=== PATIENT | female | born 1970 ===

== ENCOUNTER 2021-11-14 14:29 | Emergency (ER) | payer OTHER, SELFPAY ==
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
[2021-11-14 14:58] VITALS: BP 137/77; PULSE 68; RESP 18; TEMP 36.9; O2SAT 98; BMI 31.9
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
[2021-11-14] MEDS: Albuterol Sulfate 90 MCG 8 GM INHALER 2 PUFF INHALE (15:43)
[2021-11-14 16:27] LABS: Influenza A Negative (Negative); Influenza B2 Negative (Negative)
[2021-11-14 16:48] VITALS: BP 140/72; PULSE 72; RESP 18; O2SAT 98
== END 2021-11-14 16:57 | disposition home or self-care (01) ==
PROVIDERS: Nurse Practitioner Family; Emergency Provider Emergency Medicine; PCP Internal Medicine
DX: S29.012A Strain of muscle and tendon of back wall of thorax, initial encounter (principal); V43.62XA Car passenger injured in collision with other type car in traffic accident, initial encounter; J06.9 Acute upper respiratory infection, unspecified; Y93.89 Activity, other specified; Y92.414 Local residential or business street as the place of occurrence of the external cause; Y99.9 Unspecified external cause status
CPT/HCPCS: 71046; 87502; 99284

== ENCOUNTER 2021-12-24 10:31 | Emergency (ER) | payer OTHER, SELFPAY ==
--- NOTE | ~2021-12-24 | XR_ITS ---
EXAMINATION: XR CHEST CLINICAL INFORMATION: Shortness of breath COMPARISON: None TECHNIQUE: 2 views of the chest were obtained. FINDINGS: No significant abnormality is noted involving the heart, lungs, mediastinum, bony thorax or soft tissues. XR/XR chest 2V IMPRESSION: Unremarkable examination.
[2021-12-24 10:59] VITALS: BP 144/82; PULSE 74; RESP 19; TEMP 37.1; O2SAT 99; BMI 32.8
[2021-12-24 11:37] LABS: COVID-19 Test Negative (Negative); IDNOW Serial# 16C4AD1C
[2021-12-24 11:38] LABS: Influenza A Positive (Negative); Influenza B2 Negative (Negative)
[2021-12-24] MEDS: Albuterol/Iprat 2.5/0.5MG 3 ML AMPUL.NEB INHALE (12:18)
[2021-12-24 12:19] VITALS: PULSE 66; RESP 16; O2SAT 98
[2021-12-24] MEDS: predniSONE 20 MG TABLET 40 MG PO (12:53)
--- NOTE | 2021-12-24 12:53 | ED_ITS ---
HPI - URI/Sore Throat General Chief Complaint: Upper Respiratory Symptoms Stated Complaint: Asthma Time Seen by Provider: 12/24/21 12:06 Source: patient Mode of arrival: ambulatory History of Present Illness HPI Narrative: 51-year-old female with a past medical history of asthma presenting to the ED complaining of 3 days of cough, wheezing, SOB, nasal congestion, sneezing, headache and subjective fever. Admits to using nebulizer machine and rescue inhaler at home with symptomatic improvement. Denies ear pain, sore throat, chest pain, abdominal pain, pedal edema, recent travel, sick contacts MD elicited complaint: fever, cough, sore throat, rhinorrhea and nasal congestion Onset (ago): day(s) Related Data Previous Rx's Medication Instructions Recorded cyclobenzaprine 10 mg tablet 10 mg PO Q8H PRN #10 tab 11/14/21 ibuprofen 600 mg tablet 600 mg PO Q8H PRN #20 tab 11/14/21 prednisone 20 mg tablet 40 mg PO DAILY 5 Days #10 tab 12/24/21 Allergies Allergy/AdvReac Type Severity Reaction Status Date / Time latex [Latex] Allergy Mild UNKNOWN Unverified 05/10/20 15:21 cats, pollen, mold Allergy Unknown Uncoded 02/03/19 00:00 Latex Allergy Unknown Uncoded 02/03/19 00:00 Review of Systems Review of Systems: Constitutional: +subj Fever, No Chills ENT/Mouth: No Ear Pain, + Nasal Congestion, No Sinus Pain, No Hoarseness, No sore throat, + Rhinorrhea, No Swallowing Difficulty Cardiovascular: No Chest Pain, + SOB Respiratory: +Cough, No Sputum, + Wheezing Gastrointestinal: No Nausea, No Vomiting, No Diarrhea, No Constipation, No Abdominal pain Genitourinar: No Dysuria, No Urinary Frequency, No Hematuria, No Flank Pain Musculoskeletal: No joint pain, No Myalgias, No Joint Swelling Skin: No Skin Lesions, No rash Neuro: No Weakness Yes all other systems are reviewed and are negative [facility] Past Medical History Attestation statement: The following information was validated with the patient. Medical History Asthma Social History Social History Advance Directives: No Advance Directives Information Provided: No Patient : No Physical Exam Vital Signs: Vital Signs: Last Vital Signs Temp 98.8 F 12/24/21 10:59 Pulse 66 12/24/21 12:19 Resp 16 12/24/21 12:19 BP 144/82 H 12/24/21 10:59 Pulse Ox 99 12/24/21 10:59 BMI result Body Mass Index 32.8 Const: General: cooperative, healthy appearing and no acute distress Orientation/consciousness: patient oriented x3 Limitations: no limitations HEENT: Head: Yes normal to inspection and Yes atraumatic Ears: hearing grossly normal bilaterally General nose exam: Normal external nose present Face and sinus: Yes normal facial exam Mouth: Normal oral and palatal mucosa present Throat: Yes posterior oropharynx normal, Yes uvula midline and No peritonsillar mass Eyes: General: appearance normal, both eyes and all related structures EOM: EOMs intact bilaterally Neck: Neck: Yes normal visual inspection and Yes no meningeal signs Resp: Effort & Inspection: normal respiratory effort and no respiratory distress Auscultation: clear to auscultation bilaterally and diminished lung sounds bilateral in the lower lung abrams Cardio: Rate: regular rate Heart sounds: S1 normal heart sound present and S2 normal heart sound present Skin: Rashes: no rashes Wounds: no wounds Neuro: General: patient oriented x3, tone normal and no meningeal signs Gait exam (Neuro): Normal gait present Extrem: General: Yes normal to inspection and Yes no pedal edema Course Course Course Narrative: -influenza A positive > patient is out of the window for Tamiflu XR chest 2V IMPRESSION: Unremarkable examination -patient given DuoNeb and 1st dose of prednisone in the ED >> results discussed with patient including worrisome signs and symptoms and strict return precautions MDM - URI/Sore Throat MDM Narrative Medical decision making narrative: 51-year-old female with a past medical history of asthma presenting to the ED complaining of 3 days of cough, wheezing, SOB, nasal congestion, sneezing, he adache and subjective fever. On exam vital signs stable, NAD/nontoxic appearing, lungs clear with mildly diminished breath sounds bibasilarly. No wheezing. No pedal edema. Concern for viral illness vs asthma exacerbation vs bronchitis Rule out pneumonia. Lower concern for ACS/PE Plan: COVID-19/influenza testing, CXR, DuoNeb, p.o. prednisone Differential Diagnosis Differential diagnosis: Likely upper respiratory infection, viral infection, bronchitis and influenza Medical Records Attestation: I reviewed the patient's medical records. Lab Data Attestation: I reviewed the patient's lab results. Labs: Lab Results 12/24/21 12/24/21 Range/Units 11:05 11:05 COVID-19 (NEIL) Negative (Negative) COVID-19 Clin Com See Note Influenza Type A (MELISSA) Positive A (Negative) Influenza Type B (MELISSA) Negative (Negative) Influenza A & B Note See Note Discharge Plan Discharge Clinical Impression: Influenza, Asthma Patient Disposition: Home, Self-Care Instructions: Asthma (DC), Influenza (DC) Additional Instructions: You have the flu. You are contagious. Wash her hands, wear your mask, stay away from people for the next 5 days Rest. Stay hydrated. Prednisone steroid which will help with her wheezing. Continue to use home inhalers and nebulizer machine If symptoms persist or worsen, he develops fever unresolved medications, constant worsening cough, chest pain or shortness of breath please return to the ED Prescriptions: New prednisone 20 mg tablet 40 mg PO DAILY 5 Days Qty: 10 0RF No Action ibuprofen 600 mg tablet 600 mg PO Q8H PRN (Reason: pain) Qty: 20 0RF cyclobenzaprine 10 mg tablet 10 mg PO Q8H PRN (Reason: muscle spasm) Qty: 10 0RF Referrals: Gt Prescott III, MD [Primary Care Provider] - 1 week
== END 2021-12-24 13:12 | disposition home or self-care (01) ==
PROVIDERS: Emergency Provider Emergency Medicine; PCP Internal Medicine
DX: J10.1 Influenza due to other identified influenza virus with other respiratory manifestations (principal); R05.9 Cough, unspecified; R51.9 Headache, unspecified; Z20.822 Contact with and (suspected) exposure to COVID-19; Z79.899 Other long term (current) drug therapy
CPT/HCPCS: 71046; 87502; 87635; 94640; 99283; 99284

== ENCOUNTER 2021-12-26 09:42 | Observation (INO) | payer OTHER, SELFPAY ==
[2021-12-26] VITALS (8 sets, daily range): BP systolic 113–152; BP diastolic 57–81; PULSE 72–90; RESP 12–18; TEMP 36.1–37; O2SAT 95–98; BMI 32.8
--- NOTE | ~2021-12-26 | XR_ITS ---
EXAMINATION: XR CHEST CLINICAL INFORMATION: Dyspnea COMPARISON: 12/24/2021 TECHNIQUE: Frontal view of the chest was obtained. FINDINGS: Cardiac leads overlie the chest. The lungs are well expanded. There is no focal consolidation, edema, or effusion. No pneumothorax. The cardiomediastinal silhouette is within normal limits. No acute osseous abnormality. Degenerative changes in both glenohumeral joints. XR/XR chest 1V IMPRESSION: Clear lungs.
--- NOTE | 2021-12-26 09:51 | ED_ITS ---
HPI - Asthma General Chief Complaint: Asthma Stated Complaint: asthma Time Seen by Provider: 12/26/21 09:51 Source: patient Mode of arrival: ambulatory Limitations: no limitations History of Present Illness HPI Narrative: symptoms since Thursday of URI symptoms asthma has worsened seen 5/3 dx with Flu A has been taking her neb treatments at home with no relief and also on prednisone 40mg daily. Feels her breathing has worsened at home. No smoking. No prior intubations MD complaint: asthma attack , shortness of breath and wheezing Onset (ago): day(s) Severity: moderate Context: recent URI Associated symptoms: productive cough Asthma History: childhood onset Treatments Prior to Arrival: inhaled bronchodilator and other (PO prednisone) Related Data Previous Rx's Medication Instructions Recorded cyclobenzaprine 10 mg tablet 10 mg PO Q8H PRN #10 tab 11/14/21 ibuprofen 600 mg tablet 600 mg PO Q8H PRN #20 tab 11/14/21 prednisone 20 mg tablet 40 mg PO DAILY 5 Days #10 tab 12/24/21 Allergies Allergy/AdvReac Type Severity Reaction Status Date / Time latex [Latex] Allergy Mild UNKNOWN Verified 12/26/21 09:51 cats, pollen, mold Allergy Unknown Unknown Uncoded 12/26/21 09:51 Latex Allergy Unknown Unknown Uncoded 12/26/21 09:51 Review of Systems Review of Systems: Constitutional : No Fever, No Chills ENT/Mouth : No Hoarseness, No sore throat, No Rhinorrhea Eyes: No Redness, No Discharge, No Vision Changes Cardiovascular : No Chest Pain, positive SOB, positive Dyspnea on Exertion, No Edema Respiratory : positive Cough, pos Sputum, positive Wheezing, Gastrointestinal : No Nausea, No Vomiting, No Diarrhea, No abdominal Pain Genitourinary : No Dysuria, No Hematuria Musculoskeletal : No joint pain, No Myalgias Skin : No rash Neuro : No Weakness, No Numbness, No Headache Psych : No anxiety, depression Heme/Lymph: No Bruising, No Bleeding Endocrine : No Polyuria, No Polydipsia All other systems reviewed and are negative PMFSH Past Medical History Attestation statement: The following information was validated with the patient. Medical History Asthma Social History Social History Advance Directives: Yes Advance Directives Information Provided: Yes Advance Directives on File: No Physical Exam Vital Signs: Vital Signs: Last Vital Signs Temp 98.6 F 12/26/21 09:52 Pulse 85 12/26/21 10:49 Resp 18 12/26/21 10:49 BP 130/70 12/26/21 10:49 Pulse Ox 95 12/26/21 10:49 BMI result Body Mass Index 32.8 Appearance: Alert. Oriented X3. No acute distress. Eyes: Pupils equal, round and reactive to light. ENT: Pharynx normal. Neck: Normal inspection. Neck supple. CVS: Normal heart rate and rhythm. Pulses normal. Respiratory: No respiratory distress. Breath sounds decreased with diffuse end exp wheezes Abdomen: Soft and non-tender. Skin: Skin warm and dry. Normal skin color. Normal skin turgor. Extremities: No lower extremity edema. No calf ttp Neuro: Oriented X 3. No motor deficit. No sensory deficit. Course Course Course Narrative: repeat 5mg neb ordered, no hypoxia but still tight and wheezy already on nebs and steroids at home - at this time anticipate admission MDM - Asthma MDM Narrative Medical decision making narrative: 51 yo female with hx of asthma has neb treatments at home, currently on oral prednisone from 12/24 dx with flu but symptoms started last Thursday so out of window for tamiflu. At this time will need 5mg neb, IV steroids, IV magnesium, labs, CXR - dispo per results and findings. Lab Data Result diagrams: 12/26/21 10:14 12/26/21 10:14 Labs: Lab Results 12/26/21 12/26/21 12/26/21 Range/Units 10:13 10:14 10:14 WBC 7.8 (4.8-10.8) X10*3/uL RBC 4.70 (4.20-5.50) X10*6/uL Hgb 12.5 (12.0-16.0) g/dl Hct 39.9 (37.0-47.0) % MCV 84.9 (80.0-98.0) fL MCH 26.6 L (27.0-33.0) pg MCHC 31.3 (31.0-35.0) g/dl RDW 13.7 (11.0-16.0) % Plt Count 247 (160-400) X10*3/uL MPV 10.8 (9.4-12.3) fL Immature Gran % (Auto) 0.4 (0.0-0.4) % Neut % (Auto) 88.4 H (45-73) % Lymph % (Auto) 5.5 L (20-40) % [place] % (Auto) 5.6 (2-11) % Eos % (Auto) 0.0 (0-4) % Baso % (Auto) 0.1 (0-2) % Lymph # (Auto) 0.4 L (1.2-4.9) X10*3/uL [place] # (Auto) 0.4 (0.1-1.2) X10*3/uL Eos # (Auto) 0.0 (0.0-0.4) X10*3/uL Baso # (Auto) 0.0 (0.0-0.2) X10*3/uL Abs Immat Gran (auto) 0.03 (0.00-0.03) X10*3/uL Absolute Neuts (auto) 6.9 (2.0-8.3) x10*3/uL Absolute Nucleated RBC 0.000 (0.0-0.012) X10*3/uL Nucleated RBC % (auto) 0.0 (0.0-0.2) /100WBC Sodium 138 (135-145) mmol/L Potassium 4.5 (3.3-5.1) mmol/L Chloride 106 (96-108) mmol/L Carbon Dioxide 25 (22-29) mmol/L Anion Gap 12 (12-20) BUN 15 (9-16) mg/dL Creatinine 0.75 (0.5-1.4) mg/dL Estim Creat Clear Calc 82.5 Estimated GFR > 60 Random Glucose 112 (60-115) mg/dL Calcium 9.3 (8.4-10.2) mg/dL Magnesium 1.7 (1.6-2.6) mg/dL Total Bilirubin 0.2 (0.0-1.0) mg/dL Direct Bilirubin < 0.2 (0.0-0.5) mg/dL AST 18 (5-31) U/L ALT 14 (0-31) U/L Alkaline Phosphatase 108 (39-117) U/L Total Protein 6.8 (6.5-8.0) g/dL Albumin 3.6 (3.5-5.0) g/dL COVID-19 (NEIL) Negative (Negative) COVID-19 Clin Com See Note ECG Data Attestation: I personally reviewed and interpreted this ECG as follows: ECG interpretation date: 12/26/21 ECG interpretation time: 10:08 Interpretation: Rate: 71 Rhythm: NSR [place]: normal Normal P waves. Normal DINORAH. Normal QRS complex. ST T wave : normal no LISETTE qTC: normal prior studies: no acute ischemia The study has been interpreted contemporaneously by me. Critical Care Time Critical Care Time Critical Care Time: Yes Total Critical Care Time: 35 Attestation: repeat hour long neb treatments Discharge Plan Discharge Clinical Impression: Asthma with acute exacerbation, Influenza A Patient Disposition: Admitted As Inpatient Prescriptions: No Action ibuprofen 600 mg tablet 600 mg PO Q8H PRN (Reason: pain) Qty: 20 0RF cyclobenzaprine 10 mg tablet 10 mg PO Q8H PRN (Reason: muscle spasm) Qty: 10 0RF prednisone 20 mg tablet 40 mg PO DAILY 5 Days Qty: 10 0RF
--- NOTE | 2021-12-26 10:01 | ECG_ITS ---
Test Reason : ASTHMA Blood Pressure : / mmHG Vent. Rate : 071 BPM Atrial Rate : 071 BPM P-R Int : 162 ms QRS Dur : 082 ms QT Int : 398 ms P-R-T Axes : 055 025 028 degrees QTc Int : 432 ms Normal sinus rhythm Septal infarct , age undetermined Abnormal ECG When compared with ECG of 30-NOV-2018 01:58, Nonspecific T wave abnormality, improved in Inferior leads Referred By: Teodora Red Electronically Signed By:ALTHEA QUIROZ MD
[2021-12-26] MEDS: Albuterol Sulfate (0.083%) 2.5 MG/3 ML VIAL.NEB 5 MG INHALE ×2 (10:16→11:52)
[2021-12-26] MEDS: methylPREDNISolone Sod Succ 125 MG/2 ML VIAL IVPUSH (10:19)
[2021-12-26] MEDS: Magnesium Sulfate/H2O 2 GM/50 ML PIGGYBACK IV (10:19)
[2021-12-26 10:20] LABS: MANUAL DIFF FLAG NO
[2021-12-26 10:24] LABS: Basophils Percent Auto 0.1 % (0-2); Hematocrit 39.9 % (37.0-47.0); Hemoglobin 12.5 g/dl (12.0-16.0); Imm Gran Abs Auto 0.03 X10*3/uL (0.00-0.03); Imm Gran Pct Auto 0.4 % (0.0-0.4); Lymphocytes Absolute Auto 0.4 X10*3/uL (1.2-4.9); Lymphocytes Percent Auto 5.5 % (20-40); Mean Corpuscular HGB Conc 31.3 g/dl (31.0-35.0); Mean Corpuscular Hemoglobin 26.6 pg (27.0-33.0); Mean Corpuscular Volume 84.9 fL (80.0-98.0); Mean Platelet Volume 10.8 fL (9.4-12.3); Monocytes Absolute Auto 0.4 X10*3/uL (0.1-1.2); Monocytes Percent Auto 5.6 % (2-11); Neutrophils Absolute Auto 6.9 x10*3/uL (2.0-8.3); Neutrophils Percent Auto 88.4 % (45-73); Platelet Count 247 X10*3/uL (160-400); Red Cell Distribution Width 13.7 % (11.0-16.0); White Blood Count 7.8 X10*3/uL (4.8-10.8)
[2021-12-26 10:39] LABS: COVID-19 Test Negative (Negative)
[2021-12-26 10:54] LABS: Alanine Aminotransferase 14 U/L (0-31); Albumin Level 3.6 g/dL (3.5-5.0); Alkaline Phosphatase 108 U/L (39-117); Anion Gap 12 (12-20); Aspartate Amino Transferase 18 U/L (5-31); Bilirubin Direct < 0.2 mg/dL (0.0-0.5); Bilirubin Total 0.2 mg/dL (0.0-1.0); Blood Urea Nitrogen 15 mg/dL (9-16); Calcium 9.3 mg/dL (8.4-10.2); Carbon Dioxide 25 mmol/L (22-29); Chloride 106 mmol/L (96-108); Creatinine Clr Calc Pharmacy 82.5; Estimated Glomerular Filt Rate > 60; Glucose Random 112 mg/dL (60-115); Magnesium 1.7 mg/dL (1.6-2.6); Potassium 4.5 mmol/L (3.3-5.1); Sodium 138 mmol/L (135-145); Total Protein 6.8 g/dL (6.5-8.0)
--- NOTE | 2021-12-26 12:33 | P.HPHOSP_ITS ---
History of Present Illness Date of Service: 12/26/21 Attending physician on admission: Derek George Chief Complaint: sob 51-year-old female patient with past medical history of asthma presented to [facility] for 5-7 days history of chest tightness, productive cough of yellow phlegm, nasal congestion sneezing and shortness of breath, patient was evaluated at [facility] on December 24 with above symptoms and was diagnosed to have influenza A patient was discharged home on prednisone, and was recommended to continue home inhalers, but in last 2 days patient noted to have worsening shortness of breath and chest tightness despite using prednisone and updraft treatments, therefore got concerned and worried about intubation and came to the emergency room She denies sick contacts, no recent history of travel, in the emergency room chest x-ray showed no acute infiltrate patient noted of significant bilateral wheeze and diminished breath sound was treated with magnesium, IV Solu-Medrol and hour long updraft treatment but since patient continued to have persistent chest tightness and bilateral wheeze therefore she is being admitted to [facility] for continued monitoring and treatment. Review of Systems Review of Systems: General no headache, no dizziness no fever chills. CVS chest tightness,no palpitation. Respiratory shortness of breath and productive cough Gastrointestinal no nausea no vomiting, no abdominal pain no dysuria Skin no rash Yes all other systems are reviewed and are negative [facility] Medical History Asthma Pertinent family history: Father is had diabetes and asthma, mother is alive and has mild asthma, no history of premature coronary artery disease Social History (Updated 12/26/21 @ 12:40 by Derek George MD) Patient Tobacco Use Status: Never used Tobacco Advance Directives: Yes Advance Directives Information Provided: Yes Advance Directives on File: No Meds Allergies Allergy/AdvReac Type Severity Reaction Status Date / Time latex [Latex] Allergy Mild UNKNOWN Verified 12/26/21 09:51 cats, pollen, mold Allergy Unknown Unknown Uncoded 12/26/21 09:51 Latex Allergy Unknown Unknown Uncoded 12/26/21 09:51 Active Medications: Current Medications Acetaminophen (Acetaminophen 325 Mg Tablet) 650 mg PO Q6H PRN PRN Reason: Pain, Mild (Pain Scale 1-3) Magnesium Hydroxide (Milk Of Magnesia 30 Ml Oral.Susp) 30 ml PO DAILY PRN PRN Reason: Constipation Ondansetron HCl (Ondansetron Hcl 4 Mg/2 Ml Vial) 4 mg IVPUSH Q8H PRN PRN Reason: Nausea and Vomiting Pharmacy Consult (Consult Rx Perform Med Rec) 1 each MISCELLANE ONCE PRN PRN Reason: Consult order Sodium Chloride (0.9 % Sodium Chloride Flush 3 Ml Syringe) 3 ml IVFLUSH [facility] Medications Medication Instructions Recorded Confirmed Last Taken Type azelastine 137 mcg (0.1 %) nasal 2 spray INTRANASAL BID 12/26/21 12/26/21 12/26/21 History spray aerosol bupropion HCl 150 mg 24 hr tablet, 1 tab PO DAILY 12/26/21 12/26/21 12/26/21 History extended release calcium citrate 200 mg (950 mg) 1 tab PO DAILY 12/26/21 12/26/21 12/26/21 History tablet cholecalciferol (vitamin D3) 25 1 tab PO DAILY 12/26/21 12/26/21 12/26/21 History mcg (1,000 unit) tablet fluticasone propionate 230 1 puff INHALATION BID 12/26/21 12/26/21 12/26/21 History mcg-salmeterol 21 mcg/actuation HFA inhaler (Advair HFA) hydroxyzine HCl 25 mg tablet 1 tab PO Q8H PRN 12/26/21 12/26/21 Unknown History ibuprofen 600 mg tablet 1 tab PO Q8H PRN 12/26/21 12/26/21 Unknown History ipratropium bromide 0.02 % 2.5 ml INHALATION QID PRN 12/26/21 12/26/21 Unknown History solution for inhalation ketotifen fumarate 0.025 % (0.035 1 drp OPHTHALMIC (EYE) BID PRN 12/26/21 12/26/21 Unknown History %) eye drops loratadine 10 mg tablet 1 tab PO DAILY 12/26/21 12/26/21 12/26/21 History mepolizumab 100 mg/mL subcutaneous 100 mg SUBCUT Q4W 12/26/21 12/26/21 12/04/21 History auto-injector (Nucala) montelukast 10 mg tablet 1 tab PO BEDTIME 12/26/21 12/26/21 12/25/21 History omeprazole 40 mg capsule,delayed 1 cap PO DAILY@0630 12/26/21 12/26/21 12/26/21 History release tiotropium bromide 1.25 2 puff PO DAILY 12/26/21 12/26/21 12/26/21 History mcg/actuation mist for inhalation (Spiriva Respimat) Physical Exam Vital Signs and Narrative: Vital Signs: Last Vital Signs Temp 98.6 F 12/26/21 09:52 Pulse 78 12/26/21 11:54 Resp 16 12/26/21 11:54 BP 130/70 12/26/21 10:49 Pulse Ox 95 12/26/21 10:49 BMI result Body Mass Index 32.8 Const: Other: General awake alert,no acute distress. HEENT pupils equal round reactive to light and accommodation Neck supple no JVD. CVS regular rate rhythm, Respiratory lungs bilateral expiratory wheeze with diminished breath sounds, no use of accessory muscle. Gastrointestinal abdomen soft, nontender, bowel sounds audible Extremities no edema, right ankle brace Neuro nonfocal . Skin no rash Psych appropriate affect Results Labs CBC and Chem 7: 12/26/21 10:14 12/26/21 10:14 Labs: Laboratory Results - last 24 hr 12/26/21 12/26/21 12/26/21 10:13 10:14 10:14 MCV 84.9 MCH 26.6 L MCHC 31.3 RDW 13.7 Plt Count 247 MPV 10.8 Immature Gran % (Auto) 0.4 Neut % (Auto) 88.4 H Lymph % (Auto) 5.5 L Mccreary % (Auto) 5.6 Eos % (Auto) 0.0 Baso % (Auto) 0.1 Lymph # (Auto) 0.4 L Mccreary # (Auto) 0.4 Eos # (Auto) 0.0 Baso # (Auto) 0.0 Abs Immat Gran (auto) 0.03 Absolute Neuts (auto) 6.9 Absolute Nucleated RBC 0.000 Nucleated RBC % (auto) 0.0 Anion Gap 12 Estim Creat Clear Calc 82.5 Estimated GFR > 60 Random Glucose 112 Calcium 9.3 Magnesium 1.7 Total Bilirubin 0.2 Direct Bilirubin < 0.2 AST 18 ALT 14 Alkaline Phosphatase 108 Total Protein 6.8 Albumin 3.6 COVID-19 (NEIL) Negative COVID-19 Clin Com See Note Imaging Radiologist's Impressions: Impressions Chest X-Ray 12/26/21 10:34 IMPRESSION: Clear lungs. Assessment and Plan (1) Asthma with acute exacerbation: Qualifiers: Asthma persistence: persistent Asthma severity: moderate Qualified Code(s): J45.41 - Moderate persistent asthma with (acute) exacerbation Status: Acute (2) Influenza A: Status: Acute Plan 51-year-old female patient with past medical history significant for asthma presented to [facility] for 5-7 days history of chest tightness, productive cough, shortness of breath sneezing and subjective fevers, patient evaluated at [facility], on 12/24 and diagnosed to have influenza A infection with asthma exacerbation patient was sent home on prednisone, however return back to ER due to worsening shortness of breath and chest tightness. Acute asthma exacerbation due to influenza A infection Since patient failed outpatient steroids and updraft treatment will admit to medical floor, will place patient on high-dose IV steroids DuoNeb scheduled and as needed, continue supportive care with cough medications and oxygen as needed, patient does not qualify for Tamiflu due to duration of illness, continue droplet precautions Follow clinical course closely DVT prophylaxis low risk recommend early ambulation Code status full code Quality Stroke Does the patient have a stroke diagnosis?: No VTE Prior VTE?: No VTE Risk Level:: Medical - low VTE Device Contraindication: Treatment Not Indicated VTE Drug Contraindication: Treatment Not Indicated
--- NOTE | 2021-12-26 12:42 | PHA.MEDREC ---
Pharmacy Consult ? Medication Reconciliation Pharmacy has completed the medication reconciliation. Spoke with patient in the ED. Took all medications this morning.
[2021-12-26] MEDS: guaiFENesin DM 200/20/10 ML 10 ML SYRUP PO ×2 (13:14→22:14)
[2021-12-26] MEDS: Albuterol/Iprat 2.5/0.5MG 3 ML AMPUL.NEB INHALE ×2 (15:43→19:34)
[2021-12-26] MEDS: 0.9 % Sodium Chloride Flush 3 ML SYRINGE IVFLUSH (16:27)
[2021-12-26] MEDS: Acetaminophen 325 MG TABLET 650 MG PO (18:05)
[2021-12-26] MEDS: methylPREDNISolone Sod Succ 125 MG/2 ML VIAL 60 MG IVPUSH (18:50)
[2021-12-26] MEDS: ondansetron HCL 4 MG/2 ML VIAL IVPUSH (19:21)
[2021-12-26] MEDS: Milk of Magnesia 30 ML ORAL.SUSP PO (19:23)
[2021-12-27] MEDS: 0.9 % Sodium Chloride Flush 3 ML SYRINGE IVFLUSH ×2 (00:27→09:06)
[2021-12-27] MEDS: Acetaminophen 325 MG TABLET 650 MG PO ×2 (00:34→09:13)
[2021-12-27] MEDS: guaiFENesin DM 200/20/10 ML 10 ML SYRUP PO ×3 (02:38→12:39)
[2021-12-27] MEDS: methylPREDNISolone Sod Succ 125 MG/2 ML VIAL 60 MG IVPUSH ×2 (02:38→09:05)
[2021-12-27 03:38] VITALS: BP 155/80; PULSE 65; RESP 18; TEMP 36.4; O2SAT 97
[2021-12-27 04:57] VITALS: PULSE 61; RESP 16; O2SAT 98
[2021-12-27] MEDS: Albuterol/Iprat 2.5/0.5MG 3 ML AMPUL.NEB INHALE ×3 (04:57→11:23)
[2021-12-27 07:52] VITALS: PULSE 65; RESP 18; O2SAT 99
[2021-12-27 08:00] VITALS: BP 141/83; PULSE 79; RESP 20; TEMP 36.4; O2SAT 97
--- NOTE | 2021-12-27 09:11 | MHC.CM.PN ---
ANTHONY 12/27/21, EMR REVIEWED, PT ADMITTED TO OBS W/ASTHMA EXAC, CM MET W/PT WHO IS A&OX4, PT REPORTS SHE LIVES W/, ADULT DTR/SONIL AND SON, PT REPORTS SHE USES A CANE, HAS A NEBULIZER AND GRAB BARS IN [place] FOR DME AND HAS 1HR/7DAYS TO ASSIST W/ADLS AND CLEANING. PT REQUESTING TO STAY UNTIL TOMORROW AND CM WILL LET HOSPITALIST KNOW DURING MORNING ROUNDS, PT VERIFIES PCP IS ARLENE RM, VERIFIES HCP IS ELOISA MANE [phone] AND ALT IS DTR EMERSON PURVIS [phone], MODERNA X3. 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
[2021-12-27] MEDS: ondansetron HCL 4 MG/2 ML VIAL IVPUSH (09:24)
--- NOTE | 2021-12-27 11:16 | P.PNIM_ITS ---
Subjective Subjective Date of Service: 12/27/21 Interval History: Complaining of shortness of breath with minimal activity, denies fevers chills, persistent mild productive cough, denies chest pain, no palpitations no other acute issues overnight, no hypoxia. 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 HEENT pupils equal round reactive to light and accommodation Neck supple no JVD. CVS? regular rate rhythm, Respiratory lungs few expiratory wheeze , better air movement, no use of accessory muscle. Gastrointestinal abdomen soft, nontender, bowel sounds audible Extremities no edema, right ankle brace Neuro nonfocal . Skin no rash Psych appropriate affect Objective Data Active Medications Acetaminophen (Acetaminophen 325 Mg Tablet) 650 mg PO Q6H PRN PRN Reason: Pain, Mild (Pain Scale 1-3) Last Admin: 12/27/21 09:13 Dose: 650 mg Documented by: RADHA Albuterol/Ipratropium (Albuterol/Iprat 2.5/0.5mg 3 Ml Ampul.Neb) 3 ml INHALE Q2H PRN PRN Reason: sob Albuterol/Ipratropium (Albuterol/Iprat 2.5/0.5mg 3 Ml Ampul.Neb) 3 ml INHALE RQ4H WHILE AWAKE [facility] Last Admin: 12/27/21 07:52 Dose: 3 ml Documented by: MARY ANN Guaifenesin/Dextromethorphan (Guaifenesin Dm 200/20/10 Ml 10 Ml Syrup) 10 ml PO Q6H [facility] Last Admin: 12/27/21 07:23 Dose: 10 ml Documented by: RADHA Magnesium Hydroxide (Milk Of Magnesia 30 Ml Oral.Susp) 30 ml PO DAILY PRN PRN Reason: Constipation Last Admin: 12/26/21 19:23 Dose: 30 ml Documented by: CHIQUIS Methylprednisolone Sodium Succinate (Methylprednisolone Sod Succ 125 Mg/2 Ml Vial) 60 mg IVPUSH Q8H [facility] Last Admin: 12/27/21 09:05 Dose: 60 mg Documented by: RADHA Ondansetron HCl (Ondansetron Hcl 4 Mg/2 Ml Vial) 4 mg IVPUSH Q8H PRN PRN Reason: Nausea and Vomiting Last Admin: 12/27/21 09:24 Dose: 4 mg Documented by: RADHA Pharmacy Consult (Consult Rx Perform Med Rec) 1 each MISCELLANE ONCE PRN PRN Reason: Consult order Sodium Chloride (0.9 % Sodium Chloride Flush 3 Ml Syringe) 3 ml IVFLUSH QSHIFT [facility] Last Admin: 12/27/21 09:06 Dose: 3 ml Documented by: RADHA Labs CBC & Chem 7: 12/26/21 10:14 12/26/21 10:14 Assessment and Plan (1) Asthma with acute exacerbation: Status: Acute (2) Influenza A: Status: Acute Plan 51-year-old female patient with past medical history significant for asthma presented to [facility] for 5-7 days history of chest tightness, productive cough, shortness of breath sneezing and subjective fevers, patient evaluated at [facility], on 12/24 and diagnosed to have influenza A infection with asthma exacerbation patient was sent home on prednisone, however return back to ER due to worsening shortness of breath and chest tightness. Acute asthma exacerbation due to influenza A infection Admitted to hospital since failed outpatient steroids and updraft treatment Persistent shortness of breath with activity, continue IV steroids wean dosage to 40 mg q.8 hours continue DuoNeb scheduled and as needed continue supportive care with cough medications and oxygen as needed did not qualify for Tamiflu due to duration of illness, continue droplet precau tions Continue home inhalers on subcu nucala (mepolizumab at home) Follow clinical course closely DVT prophylaxis low risk recommend early ambulation Code status full code Quality Stroke Does the patient have a stroke diagnosis?: No VTE Prior VTE?: No VTE Risk Level:: Medical - low VTE Device Contraindication: Treatment Not Indicated VTE Drug Contraindication: Treatment Not Indicated
[2021-12-27 11:24] VITALS: PULSE 72; RESP 18; O2SAT 96
[2021-12-27 12:00] VITALS: BP 121/69; PULSE 79; RESP 20; TEMP 36.3; O2SAT 96
--- NOTE | 2021-12-27 14:12 | P.DS_ITS ---
DS: Providers Provider Date of Service: 12/27/21 Date of admission: 12/26/21 12:24 Primary care physician: Gt Prescott III, MD DS: Diagnosis Discharge Diagnosis (1) Asthma with acute exacerbation: Status: Acute (2) Influenza A: Status: Acute DS: Summary Hospital Course Hospital Course: Chief Complaint: sob 51-year-old female patient with past medical history of asthma presented to [facility] for 5-7 days history of chest tightness, productive cough of yellow phlegm, nasal congestion sneezing and shortness of breath, patient was evaluated at [facility] on December 24 with above symptoms and was diagnosed to have influenza A patient was discharged home on prednisone, and was recommended to continue home inhalers, but in last 2 days patient noted to have worsening shortness of breath and chest tightness despite using prednisone and updraft treatments, therefore got concerned and worried about intubation and came to the emergency room She denies sick contacts, no recent history of travel, in the emergency room chest x-ray showed no acute infiltrate patient noted of significant bilateral wheeze and diminished breath sound was treated with magnesium, IV Solu-Medrol and hour long updraft treatment but since patient continued to have persistent chest tightness and bilateral wheeze therefore she is being admitted to [facility] for continued monitoring and treatment. Hospital course 51-year-old female patient with past medical history significant for asthma presented to [facility] for 5-7 days history of chest tightness, productive cough, shortness of breath sneezing and subjective fevers, patient evaluated at [facility], on 12/24 and diagnosed to have influenza A infection with asthma exacerbation patient was sent home on prednisone, however return back to ER due to worsening shortness of breath and chest tightness, patient admitted to [facility] with a diagnosis of Acute asthma exacerbation due to influenza A infection and treated with IV steroids , DuoNeb scheduled and as needed she did not qualify for Tamiflu due to duration of illness, patient responded well to above treatment currently feeling significantly better lung examination is clear patient feels she is good to be discharged home and will continue her home inhalers she is being discharged home on prednisone 20 mg twice daily for 5 more days recommend to take cough medication as needed rest and drink plenty of fluids. Time Spent with Patient Time attestation: Total time spent providing and/or coordinating discharge services: Discharge coordination time: Greater than 30 minutes Quality: Safe Use of Opioids Does Pt have an Active Cancer Diagnosis on the Problem List?: No Quality: Stroke Does the patient have a stroke diagnosis?: No Physical Exam Vital Signs: Vital Signs: Last Vital Signs Temp 97.4 F 12/27/21 12:00 Pulse 79 12/27/21 12:00 Resp 20 12/27/21 12:00 BP 121/69 12/27/21 12:00 Pulse Ox 96 12/27/21 12:00 BMI result Body Mass Index 32.8 Const: Other: General awake alert,no acute distress.? HEENT pupils equal round reactive to light and accommodation Neck supple no JVD. CVS? regular rate rhythm, Respiratory lungs clear no wheeze, no use of accessory muscle. Gastrointestinal abdomen soft, nontender, bowel sounds audible Extremities no edema, right ankle brace Neuro nonfocal . Skin no rash Psych appropriate affect Discharge Plan Discharge Patient Disposition: Home, Self-Care Discharge Diagnosis: Acute asthma exacerbation Influenza A Referrals: Gt Prescott III, MD [Primary Care Provider] - 1 Week Discharge Medications: New dextromethorphan-guaifenesin 10-100 mg/5 mL Syrup 10 ml PO Q6H Qty: 237 0RF prednisone 20 mg tablet 20 mg PO BID Qty: 10 0RF Rx Instructions: Take with food Continued ketotifen fumarate 0.025 % (0.035 %) drops 1 drp ophthalmic (eye) BID PRN (Reason: itch) 0RF omeprazole 40 mg capsule,delayed release(DR/EC) 1 cap PO DAILY@0630 0RF montelukast 10 mg tablet 1 tab PO BEDTIME 0RF hydroxyzine HCl 25 mg tablet 1 tab PO Q8H PRN (Reason: itch) 0RF azelastine 137 mcg (0.1 %) aerosol,spray 2 spray intranasal BID 0RF ibuprofen 600 mg tablet 1 tab PO Q8H PRN (Reason: pain) 0RF loratadine 10 mg tablet 1 tab PO DAILY 0RF ipratropium bromide 0.02 % solution 2.5 ml inhalation QID PRN (Reason: wheezing) 0RF calcium citrate 200 mg (950 mg) tablet 1 tab PO DAILY 0RF bupropion HCl 150 mg tablet extended release 24 hr 1 tab PO DAILY 0RF Advair HFA 230-21 mcg/actuation HFA aerosol inhaler 1 puff inhalation BID 0RF cholecalciferol (vitamin D3) 25 mcg (1,000 unit) tablet 1 tab PO DAILY 0RF Spiriva Respimat 1.25 mcg/actuation mist 2 puff PO DAILY 0RF Nucala 100 mg/mL auto-injector 100 mg subcut Q4W 0RF Discharge Orders: Discharge Order (Routine); Ordered 12/27/21 Ordered By: Derek George Diet: advance to usual diet Activity on Discharge: As tolerated Stand Alone Forms: Patient Portal Discharge page Care Plan Goals: Acute asthma exacerbation due to influenza A take updraft treatment 4 times a day, and take prednisone 20 mg twice daily for total 5 more days, take cough medication as needed Health Concerns: Continue all home medication Plan of Treatment: Outpatient follow-up with primary care physician Assessment: As per discharge summary
== END 2021-12-27 15:13 | disposition home or self-care (01) ==
LOC: HO.ED 12:28 → HO.EDOVER 12:33 → HO.S3 17:18
PROVIDERS: Admitting Provider Hospitalist; Emergency Provider Emergency Medicine; PCP Internal Medicine; Visit Provider Hospitalist
DX: J45.41 Moderate persistent asthma with (acute) exacerbation (principal); J10.1 Influenza due to other identified influenza virus with other respiratory manifestations; J30.81 Allergic rhinitis due to animal (cat) (dog) hair and dander; I51.0 Cardiac septal defect, acquired; R94.31 Abnormal electrocardiogram [ECG] [EKG]; Z20.822 Contact with and (suspected) exposure to COVID-19; Z91.040 Latex allergy status; Z79.899 Other long term (current) drug therapy
CPT/HCPCS: 71045; 80048; 80076; 83735; 85025; 87635; 93005; 94640; 94644; 96365; 96366; 96375; 96376; 99218; 99285; 99291; J2405; J2930; J3475

== ENCOUNTER 2022-01-01 18:38 | Inpatient (IN) | payer OTHER, SELFPAY ==
--- NOTE | ~2022-01-01 | XR_ITS ---
EXAMINATION: XR CHEST CLINICAL INFORMATION: Follow-up pneumonia COMPARISON: Previous chest x-ray and chest CTA 01/01/2022 TECHNIQUE: 2 views of the chest were obtained. FINDINGS: The cardiac and mediastinal contours are stable. There are right upper and perihilar infiltrates. These do not appear appreciably changed. There is a 1.6 cm right upper lobe nodule that now appears cavitary. This does not appear appreciably changed in size. The left lung is clear. There is no pleural effusion or pneumothorax. There are degenerative changes of the spine. XR/XR chest 2V IMPRESSION: No appreciable change in the right perihilar infiltrates. 1.6 cm cavitary right upper lobe nodule.
--- NOTE | ~2022-01-01 | XR_ITS ---
EXAMINATION: XR CHEST CLINICAL INFORMATION: Right sided pleuritic chest pain, rule out pneumothorax or pneumonia COMPARISON: 12/26/2021 TECHNIQUE: Frontal view of the chest was obtained. FINDINGS: There is no evidence for pneumothorax. I believe there is developing density in the right upper lung and also parahilar region on the right. These findings favor areas of infiltrate. Cannot exclude a developing process left midlung though this could be overlapping rib and scapula There is no obvious failure here. No effusion. The cardiac silhouette is comparable to previous. XR/XR chest 1V IMPRESSION: Opacity in the right upper lung and parahilar region on the right. These findings suggest developing areas of infiltrate. There is no pneumothorax or effusion. Possible additional focus left midlung. Short-term Follow-up films are recommended after treatment to assess for resolution and establish baseline 4 - 6 weeks
--- NOTE | ~2022-01-01 | CT_ITS ---
EXAMINATION: CT ANGIOGRAM OF THE CHEST WITH AND WITHOUT CONTRAST (CT PULMONARY ANGIOGRAM FOR PE) CLINICAL INFORMATION: Reason for Exam R sided pleuritic pain, elevated D-dimer, r/o PE COMPARISON: 09/30/2018 TECHNIQUE: Prior to contrast administration, noncontrast localization images were obtained. Subsequently, multidetector volumetric imaging was performed from the thoracic inlet to below the diaphragms following the administration of 80 mL Omnipaque 350 intravenous contrast. No contrast reaction reported Sagittal, coronal, and MIP oblique sagittal reformatted images were obtained on the CT workstation, uploaded to PACS, and reviewed. This CT examination was performed using dose optimization techniques as appropriate, variously including the following: *Automated exposure control *Adjustment of mA and/or kV according to patient size (this includes techniques or standardized protocols for targeted exams where dose is matched to indication/reason for exam; i.e. extremities or head) *Use of iterative reconstruction technique Total exam dose-length product 293 mGy-cm FINDINGS: QUALITY OF STUDY/CONTRAST BOLUS: Satisfactory. PULMONARY ARTERIES: No central or segmental pulmonary emboli. THORACIC AORTA: No significant aneurysmal change The thoracic inlet is within normal limits. The axillary regions are unremarkable. Partially visualized upper abdominal structures within normal limits. Cannot exclude a breast lesion near the nipple on right. 1.2 cm. Centrally there is no bulky adenopathy. This is a noncontrast study. Some mild hilar nodes are noted. Imaging of the lung abrams. Right lung; Scattered Patchy areas of opacity. Some of these appear to be thick-walled and rounded with central lucencies. Infection would need to be considered. Malignancy cannot be excluded. Largest lesion in the right upper lobe measures 1.6 x 1.7 cm. Left lung; No significant infiltrate or effusion. There may be one small patchy area with lucency on image 233 of series 7 in the medial left base. Review of the bone windows does not demonstrate convincing evidence for bony lesion. CT/CT angio chest PE protocol IMPRESSION: There is no filling defect to suggest a pulmonary embolism. Several areas of opacity in the right lung and some of these appear rounded with central lucencies. This may represent necrotic central material. Therefore infection needs to be considered here. Of course metastatic malignancy would be in the differential. There may be one small area on the left. As described above I must consider a breast lesion on the right around the nipple. Mammography and ultrasound recommended VTE: negative
[2022-01-01 18:42] VITALS: BP 170/90; PULSE 100; O2SAT 100
--- NOTE | 2022-01-01 18:51 | ECG_ITS ---
Test Reason : CHEST PAIN Blood Pressure : / mmHG Vent. Rate : 067 BPM Atrial Rate : 067 BPM P-R Int : 162 ms QRS Dur : 084 ms QT Int : 390 ms P-R-T Axes : -02 007 017 degrees QTc Int : 412 ms Normal sinus rhythm Normal ECG When compared with ECG of 26-DEC-2021 09:58, No significant change was found Referred By: Joe Napier Electronically Signed By:ALTHEA QUIROZ MD
[2022-01-01 18:56] VITALS: BP 152/92; PULSE 72; RESP 18; TEMP 37.2; O2SAT 99; BMI 32.8
--- NOTE | 2022-01-01 18:56 | ED.CHESTPAIN ---
HPI - Chest Pain General Chief Complaint: Chest Pain Stated Complaint: cp Time Seen by Provider: 01/01/22 18:50 Source: patient and EMS Mode of arrival: EMS Limitations: no limitations History of Present Illness HPI narrative: 51-year-old female who presents emergency department for evaluation of right-sided chest pain, cough, shortness of breath. The patient was hospitalized on 12/27/2021 for acute influenza and asthma exacerbation. In reviewing her records, the patient has been sick for 5 to 7 days with cough, chest pain and shortness of breath. She was diagnosed with influenza sent home but then returned 2 days later with asthma exacerbation. She was treated in the hospital with nebulizers and discharged home on prednisone. She was also given Robitussin for cough. Patient states that over the past 4 days she has had a right-sided pleuritic chest pain. She describes it as a sharp pain which is worse with coughing and breathing. She states that approximately 2 hours prior to coming to the emergency department the pain became more severe and was 9/10. Again the pain is pleuritic and is worse with coughing and with breathing. She states that she continues to have a cough which is productive of yellow sputum. She states she continues to have wheezing as well and has been using her albuterol nebulizer several times a day. The patient states she took oxycodone 2 tablets prior to arrival with no relief for pain. She denied fever, chills, rhinorrhea, nausea, vomiting, diarrhea. The patient states that she has had 3 Moderna COVID-19 vaccinations. MD complaint: chest pain Pertinent past history: asthma and other (Recent positive influenza A on12/24/2021) Onset (ago): day(s) (Four days, increased pain 2 hours prior) Timing of current episode: constant Prior episodes: Yes Onset: during rest Pain location: right chest Pain radiation: none Severity: severe Pain scale (0-10): 9 Quality: sharp Relieving factors: nothing Exacerbating factors: inspiration and other (Cough) Context: recent illness (Influenza cap) Associated symptoms: dyspnea and cough Treatment prior to arrival: other (Oxycodone 2 tabs) Related Data Home Medications Medication Instructions Recorded Confirmed azelastine 137 mcg (0.1 %) nasal 2 spray INTRANASAL BID 12/26/21 12/26/21 spray aerosol bupropion HCl 150 mg 24 hr tablet, 1 tab PO DAILY 12/26/21 12/26/21 extended release calcium citrate 200 mg (950 mg) 1 tab PO DAILY 12/26/21 12/26/21 tablet cholecalciferol (vitamin D3) 25 1 tab PO DAILY 12/26/21 12/26/21 mcg (1,000 unit) tablet fluticasone propionate 230 1 puff INHALATION BID 12/26/21 12/26/21 mcg-salmeterol 21 mcg/actuation HFA inhaler (Advair HFA) hydroxyzine HCl 25 mg tablet 1 tab PO Q8H PRN 12/26/21 12/26/21 ibuprofen 600 mg tablet 1 tab PO Q8H PRN 12/26/21 12/26/21 ipratropium bromide 0.02 % 2.5 ml INHALATION QID PRN 12/26/21 12/26/21 solution for inhalation ketotifen fumarate 0.025 % (0.035 1 drp OPHTHALMIC (EYE) BID PRN 12/26/21 12/26/21 %) eye drops loratadine 10 mg tablet 1 tab PO DAILY 12/26/21 12/26/21 mepolizumab 100 mg/mL subcutaneous 100 mg SUBCUT Q4W 12/26/21 12/26/21 auto-injector (Nucala) montelukast 10 mg tablet 1 tab PO BEDTIME 12/26/21 12/26/21 omeprazole 40 mg capsule,delayed 1 cap PO DAILY@0630 12/26/21 12/26/21 release tiotropium bromide 1.25 2 puff PO DAILY 12/26/21 12/26/21 mcg/actuation mist for inhalation (Spiriva Respimat) Previous Rx's Medication Instructions Recorded dextromethorphan-guaifenesin 10 10 ml PO Q6H #237 ml 12/27/21 mg-100 mg/5 mL oral syrup prednisone 20 mg tablet 20 mg PO BID #10 tab 12/27/21 Allergies Allergy/AdvReac Type Severity Reaction Status Date / Time latex [Latex] Allergy Mild UNKNOWN Verified 12/26/21 09:51 cats, pollen, mold Allergy Unknown Unknown Uncoded 12/26/21 09:51 Latex Allergy Unknown Unknown Uncoded 12/26/21 09:51 Review of Systems Review of Systems: Yes all other systems are reviewed and are negative [facility] Past Medical History [facility] Narrative: Past medical history asthma. Past surgical history: Bilateral total knee replacements, last surgery 2 years prior. Social history: She denies tobacco use. She denies alcohol use. She denies drug use. 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) Patient Tobacco Use Status: Never used Tobacco Advance Directives: Yes Advance Directives on File: Yes Advance Directives Date on File: 12/26/21 Patient : No service: No Current occupational status: disabled Physical Exam Vital Signs: Vital Signs: Last Vital Signs Temp 99.0 F 01/01/22 18:56 Pulse 60 01/01/22 20:18 Resp 18 01/01/22 20:40 BP 152/92 H 01/01/22 18:56 Pulse Ox 99 01/01/22 18:56 BMI result Body Mass Index 32.8 Const: Other: Awake, alert, female patient, pleasant, cooperative she appears to be in distress secondary to her right-sided pleuritic pain, she is splinting her chest, she is tachypneic HEENT: Head: Yes normal to inspection, Yes normocephalic and Yes atraumatic Ears: external ears normal General nose exam: Normal external nose present Face and sinus: Yes normal facial exam Mouth: Normal oral and palatal mucosa present Throat: Yes posterior oropharynx normal Eyes: General: appearance normal, both eyes and all related structures Pupils: Equal, round and reactive pupils present Neck: Neck: Yes normal visual inspection, Yes no lymphadenopathy, Yes trachea midline and Yes supple Chest: Chest palpation & inspection: tenderness (Right anterior and lateral chest) Resp: Effort & Inspection: audible wheezes, Actively coughing and tachypneic Auscultation: wheezes scattered wheezes and throughout Cardio: Rate: regular rate Rhythm: regular rhythm Heart sounds: S1 normal heart sound present, S2 normal heart sound present and no murmurs GI: Inspection: Yes normal to inspection Palpation (GI): Soft to palpation, nontender and no guarding Auscultation: normal bowel sounds : General: Yes no CVA tenderness Back/Spine/Pelvis: Back: no CVA tenderness Skin: General skin exam: no rashes or lesions noted Neuro: Cranial nerves: Yes CN's II-XII intact bilaterally and Yes Equal, round and reactive pupils present Cognition (Neuro): normal cognition Motor exam (neuro): 5/5 motor strength present throughout Extrem: General: Yes normal to inspection Psych: Appearance: grossly normal Speech and movement: Normal speech and movement present Affect: normal affect Attitude: cooperative Thought process: Normal thought process present Thought content: Normal thought content present Course Course Course Narrative: 51-year-old female who presents emergency department for evaluation of 4 days right-sided pleuritic chest pain with productive cough and shortness of breath. The patient was hospitalized on 12/27/21 for acute influenza and asthma exacerbation. She states that 2 hours prior to coming to the emergency department right-sided pleuritic chest pain got worse and is now 9/10. Vital signs revealed an elevated blood pressure of 152/92, O2 saturation was 99% on room air. Patient does have right-sided chest wall tenderness and scattered wheezing throughout all lung abrams. The differential includes but is not limited to pulmonary embolism, pneumonia, COVID-19 infection, pleurisy, asthma exacerbation. Patient's pain was treated with morphine 4 mg IV and Toradol 15 mg IV. I did order laboratory evaluation, EKG, chest x-ray. 2101: Laboratory evaluation: WBC elevated 16,600. Glucose elevated 156. D-dimer elevated 370. COVID-19 negative. Lactate was normal at 1.7. Radiology evaluation: Chest x-ray radiology reading was concerning for right upper lobe and perihilar infiltrate and possible left mid lung infiltrate. I will treat the patient with Zosyn 4.5 g IV for her pneumonia. The patient did get relief of her pleuritic chest pain with the above treatment and required a 2nd dose of morphine 4 mg IV. Given the patient's elevated D-dimer and the sudden change in severity of her right-sided pleuritic chest pain, I will obtain a CT pulmonary angiogram PE protocol rule out pulmonary embolism 2214: Patient's CT pulmonary angiogram is pending and I will have my colleague, Dr. Steven brought I will check this result. I did discuss patient's presentation with the covering hospitalist and the patient will be admitted to the hospital service for further treatment of her asthma and asthma exacerbation. YAKOV - Chest Pain Lab Data Result diagrams: 01/01/22 19:17 01/01/22 19:17 Labs: Lab Results 01/01/22 01/01/22 01/01/22 Range/Units 19:17 19:17 19:17 WBC 16.6 H (4.8-10.8) X10*3/uL RBC 4.59 (4.20-5.50) X10*6/uL Hgb 12.1 (12.0-16.0) g/dl Hct 38.5 (37.0-47.0) % MCV 83.9 (80.0-98.0) fL MCH 26.4 L (27.0-33.0) pg MCHC 31.4 (31.0-35.0) g/dl RDW 13.7 (11.0-16.0) % Plt Count 344 D (160-400) X10*3/uL MPV 10.4 (9.4-12.3) fL Immature Gran % (Auto) 2.5 H (0.0-0.4) % Neut % (Auto) 87.6 H (45-73) % Lymph % (Auto) 5.8 L (20-40) % [place] % (Auto) 3.9 (2-11) % Eos % (Auto) 0.0 (0-4) % Baso % (Auto) 0.2 (0-2) % Lymph # (Auto) 1.0 L (1.2-4.9) X10*3/uL [place] # (Auto) 0.7 (0.1-1.2) X10*3/uL Eos # (Auto) 0.0 (0.0-0.4) X10*3/uL Baso # (Auto) 0.0 (0.0-0.2) X10*3/uL Abs Immat Gran (auto) 0.42 H (0.00-0.03) X10*3/uL Absolute Neuts (auto) 14.5 H (2.0-8.3) x10*3/uL Absolute Nucleated RBC 0.000 (0.0-0.012) X10*3/uL Nucleated RBC % (auto) 0.0 (0.0-0.2) /100WBC PT 11.3 (9.9-13.0) SEC INR 1.0 (0.9-1.1) APTT 27.7 (24.1-38.0) SEC D-Dimer High Sensitivty 370 NG/ML Sodium 139 (135-145) mmol/L Potassium 4.4 (3.3-5.1) mmol/L Chloride 107 (96-108) mmol/L Carbon Dioxide 25 (22-29) mmol/L Anion Gap 11 L (12-20) BUN 22 H (9-16) mg/dL Creatinine 0.84 (0.5-1.4) mg/dL Estim Creat Clear Calc 73.6 Estimated GFR > 60 Random Glucose 156 H (60-115) mg/dL Lactic Acid (0.5-2.0) mmol/L Calcium 9.0 (8.4-10.2) mg/dL Total Bilirubin 0.2 (0.0-1.0) mg/dL AST 13 (5-31) U/L ALT 28 (0-31) U/L Alkaline Phosphatase 115 (39-117) U/L Troponin I High Sens (<3.5-17.0) ng/L Total Protein 6.5 (6.5-8.0) g/dL Albumin 3.4 L (3.5-5.0) g/dL Lipase 16 (8-78) U/L COVID-19 (NEIL) (Negative) COVID-19 Clin Com 01/01/22 01/01/22 01/01/22 Range/Units 19:17 19:17 19:17 WBC (4.8-10.8) X10*3/uL RBC (4.20-5.50) X10*6/uL Hgb (12.0-16.0) g/dl Hct (37.0-47.0) % MCV (80.0-98.0) fL MCH (27.0-33.0) pg MCHC (31.0-35.0) g/dl RDW (11.0-16.0) % Plt Count (160-400) X10*3/uL MPV (9.4-12.3) fL Immature Gran % (Auto) (0.0-0.4) % Neut % (Auto) (45-73) % Lymph % (Auto) (20-40) % [place] % (Auto) (2-11) % Eos % (Auto) (0-4) % Baso % (Auto) (0-2) % Lymph # (Auto) (1.2-4.9) X10*3/uL [place] # (Auto) (0.1-1.2) X10*3/uL Eos # (Auto) (0.0-0.4) X10*3/uL Baso # (Auto) (0.0-0.2) X10*3/uL Abs Immat Gran (auto) (0.00-0.03) X10*3/uL Absolute Neuts (auto) (2.0-8.3) x10*3/uL Absolute Nucleated RBC (0.0-0.012) X10*3/uL Nucleated RBC % (auto) (0.0-0.2) /100WBC PT (9.9-13.0) SEC INR (0.9-1.1) APTT (24.1-38.0) SEC D-Dimer High Sensitivty NG/ML Sodium (135-145) mmol/L Potassium (3.3-5.1) mmol/L Chloride (96-108) mmol/L Carbon Dioxide (22-29) mmol/L Anion Gap (12-20) BUN (9-16) mg/dL Creatinine (0.5-1.4) mg/dL Estim Creat Clear Calc Estimated GFR Random Glucose (60-115) mg/dL Lactic Acid 1.7 (0.5-2.0) mmol/L Calcium (8.4-10.2) mg/dL Total Bilirubin (0.0-1.0) mg/dL AST (5-31) U/L ALT (0-31) U/L Alkaline Phosphatase (39-117) U/L Troponin I High Sens < 3.5 (<3.5-17.0) ng/L Total Protein (6.5-8.0) g/dL Albumin (3.5-5.0) g/dL Lipase (8-78) U/L COVID-19 (NEIL) Negative (Negative) COVID-19 Clin Com See Note ECG Data ECG #1: Attestation: I personally reviewed and interpreted this ECG as follows: Interpretation: 1848: Normal sinus rhythm rate of 67, normal MT interval, QRS duration QTC interval, inverted T-wave in lead 3, V1 and V2, no ST segment elevation, no ST segment depression, no PACs, no PVCs Discharge Plan Discharge Clinical Impression: Pneumonia, Asthma exacerbation, Pleuritic chest pain Patient Disposition: Admitted As Inpatient Prescriptions: No Action ketotifen fumarate 0.025 % (0.035 %) drops 1 drp ophthalmic (eye) BID PRN (Reason: itch) 0RF omeprazole 40 mg capsule,delayed release(DR/EC) 1 cap PO DAILY@0630 0RF montelukast 10 mg tablet 1 tab PO BEDTIME 0RF hydroxyzine HCl 25 mg tablet 1 tab PO Q8H PRN (Reason: itch) 0RF azelastine 137 mcg (0.1 %) aerosol,spray 2 spray intranasal BID 0RF ibuprofen 600 mg tablet 1 tab PO Q8H PRN (Reason: pain) 0RF loratadine 10 mg tablet 1 tab PO DAILY 0RF ipratropium bromide 0.02 % solution 2.5 ml inhalation QID PRN (Reason: wheezing) 0RF calcium citrate 200 mg (950 mg) tablet 1 tab PO DAILY 0RF bupropion HCl 150 mg tablet extended release 24 hr 1 tab PO DAILY 0RF Advair HFA 230-21 mcg/actuation HFA aerosol inhaler 1 puff inhalation BID 0RF cholecalciferol (vitamin D3) 25 mcg (1,000 unit) tablet 1 tab PO DAILY 0RF Spiriva Respimat 1.25 mcg/actuation mist 2 puff PO DAILY 0RF Nucala 100 mg/mL auto-injector 100 mg subcut Q4W 0RF dextromethorphan-guaifenesin 10-100 mg/5 mL Syrup 10 ml PO Q6H Qty: 237 0RF prednisone 20 mg tablet 20 mg PO BID Qty: 10 0RF Rx Instructions: Take with food
[2022-01-01 19:23] LABS: MANUAL DIFF FLAG NO
[2022-01-01 19:28] LABS: Basophils Percent Auto 0.2 % (0-2); Hematocrit 38.5 % (37.0-47.0); Hemoglobin 12.1 g/dl (12.0-16.0); Imm Gran Abs Auto 0.42 X10*3/uL (0.00-0.03); Imm Gran Pct Auto 2.5 % (0.0-0.4); Lymphocytes Percent Auto 5.8 % (20-40); Mean Corpuscular HGB Conc 31.4 g/dl (31.0-35.0); Mean Corpuscular Hemoglobin 26.4 pg (27.0-33.0); Mean Corpuscular Volume 83.9 fL (80.0-98.0); Mean Platelet Volume 10.4 fL (9.4-12.3); Monocytes Absolute Auto 0.7 X10*3/uL (0.1-1.2); Monocytes Percent Auto 3.9 % (2-11); Neutrophils Absolute Auto 14.5 x10*3/uL (2.0-8.3); Neutrophils Percent Auto 87.6 % (45-73); Platelet Count 344 X10*3/uL (160-400); Red Blood Count 4.59 X10*6/uL (4.20-5.50); Red Cell Distribution Width 13.7 % (11.0-16.0); White Blood Count 16.6 X10*3/uL (4.8-10.8)
[2022-01-01 19:34] LABS: Lactic Acid 1.7 mmol/L (0.5-2.0)
[2022-01-01 19:36] LABS: Prothrombin Time 11.3 SEC (9.9-13.0)
[2022-01-01 19:38] LABS: D Dimer High Sensitivity 370 NG/ML; Partial Thromboplastin Time 27.7 SEC (24.1-38.0)
[2022-01-01] MEDS: Ketorolac Tromethamine 15 MG/ML VIAL IVPUSH (19:38)
[2022-01-01] MEDS: methylPREDNISolone Sod Succ 125 MG/2 ML VIAL IVPUSH (19:38)
[2022-01-01] MEDS: Morphine Sulfate 4 MG/ML CARTRIDGE IVPUSH ×2 (19:39→20:40)
[2022-01-01 19:40] LABS: Alanine Aminotransferase 28 U/L (0-31); Albumin Level 3.4 g/dL (3.5-5.0); Alkaline Phosphatase 115 U/L (39-117); Anion Gap 11 (12-20); Aspartate Amino Transferase 13 U/L (5-31); Bilirubin Total 0.2 mg/dL (0.0-1.0); Blood Urea Nitrogen 22 mg/dL (9-16); Carbon Dioxide 25 mmol/L (22-29); Chloride 107 mmol/L (96-108); Creatinine Clr Calc Pharmacy 73.6; Estimated Glomerular Filt Rate > 60; Glucose Random 156 mg/dL (60-115); Lipase 16 U/L (8-78); Potassium 4.4 mmol/L (3.3-5.1); Sodium 139 mmol/L (135-145); Total Protein 6.5 g/dL (6.5-8.0)
[2022-01-01 19:41] LABS: COVID-19 Test Negative (Negative); IDNOW Serial# 55D5AD1C
[2022-01-01 19:46] LABS: Troponin-I High Sensitivity < 3.5 ng/L (<3.5-17.0)
[2022-01-01] MEDS: Albuterol Sulfate (0.083%) 2.5 MG/3 ML VIAL.NEB 5 MG INHALE (20:16)
[2022-01-01 20:18] VITALS: PULSE 60; RESP 16; O2SAT 94
[2022-01-01 20:40] VITALS: RESP 18
[2022-01-01] MEDS: iohexoL 350 MG/ML 100 ML INFUS..BTL IV (21:00)
[2022-01-01] MEDS: Piperacillin Sodium/Tazobactam 4.5 GM in 0.9 % Sodium Chloride 100 ML IV (21:38)
[2022-01-01 21:43] VITALS: BP 136/77; PULSE 74; RESP 12; TEMP 36.4; O2SAT 99
--- NOTE | 2022-01-01 21:46 | PHA.MEDREC ---
Pharmacy Consult ? Medication Reconciliation Pharmacy has completed the medication reconciliation.
--- NOTE | 2022-01-01 23:07 | P.HPHOSP_ITS ---
History of Present Illness Date of Service: 01/01/22 Chief Complaint: Chest pain 51-year-old female with a past medical history of asthma, recently discharged from the hospital after being treated for asthma/influenza on 12/27/2021; presented to the hospital today with a chief complaint of chest pain. Patient reported over the past few days she has been having cough with yellowish to brown sputum production. Denies any fevers. Mentioned that she has been continually take her prednisone taper; mentions her shortness of breath has been improving Reports for the past couple days she noted to have right-sided chest pain; worsens with deep inspiration; denies any associated lightheadedness dizziness or diaphoresis. Pain is constant and sharp in nature. Denies any GI symptoms. Patient denies any weight loss or change in appetite. Review of all other systems is negative except mentioned above ER course: Per ER team patient noted to have right lateral chest wall pain; pleuritic in nature; EKG nonischemic; troponin negative; chest and x-ray showed right upper lobe infiltrate concerning for pneumonia; also noted to have follow focus on the left midlung; concerning for Hcap-started on antibiotics; CT chest was done which showed no evidence of pulmonary embolism but noted right upper lobe f indings concerning for necrosis; malignancy cannot be ruled out. Admitted to the hospital for further management. 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) Alcohol intake: never Patient Tobacco Use Status: Never used Tobacco Use of substances other than those prescribed or required for medical reasons: No Advance Directives: Yes Advance Directives on File: Yes Advance Directives Date on File: 12/26/21 Patient : No service: No Current occupational status: disabled Meds Allergies Allergy/AdvReac Type Severity Reaction Status Date / Time latex [Latex] Allergy Mild UNKNOWN Verified 12/26/21 09:51 cats, pollen, mold Allergy Unknown Unknown Uncoded 12/26/21 09:51 Latex Allergy Unknown Unknown Uncoded 12/26/21 09:51 Active Medications: Current Medications Acetaminophen (Acetaminophen 325 Mg Tablet) 650 mg PO Q6H PRN PRN Reason: Pain, Mild (Pain Scale 1-3) Albuterol/Ipratropium (Albuterol/Iprat 2.5/0.5mg 3 Ml Ampul.Neb) 3 ml INHALE RQ4H PRN PRN Reason: Shortness of Breath/Wheezing Azelastine HCl (Azelastine Hcl Nasal 137 Mcg/[place] 30 Ml) 2 spray NOSTRIL-B BID [facility] Bupropion HCl (Bupropion Hcl Xl 150 Mg Tab.Er.24h) 150 mg PO DAILY [facility] Guaifenesin/Dextromethorphan (Guaifenesin Dm 100/10/5 Ml 5 Ml Syrup) 10 ml PO Q6H [facility] Hydromorphone HCl (Hydromorphone Hcl 1 Mg/Ml Syringe) 0.5 mg IVPUSH Q4H PRN; Protocol PRN Reason: Pain, Severe (Pain Scale 7-10) Hydroxyzine HCl (Hydroxyzine Hcl 25 Mg Tablet) 25 mg PO Q8H PRN PRN Reason: itch Vancomycin HCl 1,000 mg/ (Sodium Chloride) 270 mls @ 270 mls/hr IV Q12H [facility] Piperacillin Sod/Tazobactam (Sod 3.375 gm/ Sodium Chloride) 50 mls @ 100 mls/hr IV Q6H [facility] Ipratropium [place] (Ipratropium [place] 0.5 Mg/2.5 Ml Solution) mg INHALE QID PRN PRN Reason: wheezing Ketotifen Fumarate (Ketotifen Fumarate 0.025% Oph 5 Ml Drpbtl) 1 drop EYE-BOTH BID PRN PRN Reason: itch Loratadine (Loratadine 10 Mg Tablet) 10 mg PO DAILY [facility] Melatonin (Melatonin 3 Mg Tablet) 6 mg PO BEDTIME PRN PRN Reason: Insomnia Montelukast Sodium (Montelukast Sodium 10 Mg Tablet) 10 mg PO BEDTIME [facility] Non-Formulary Medication (Calcium Citrate) 1 tab PO DAILY [facility] Non-Formulary Medication (Fluticasone Propion-Salmeterol [Advair Hfa]) 1 puff INHALE BID [facility] Non-Formulary Medication (Ipratropium-Albuterol [Combivent Respimat]) 1 puff INHALE QID [facility] Non-Formulary Medication (Mepolizumab) 100 mg SUBCUT Q4W [facility] Non-Formulary Medication (Tiotropium [place] [Spiriva Respimat]) 2 puff PO DAILY [facility] Omeprazole (Omeprazole 40 Mg Capsule.Dr) 40 mg PO DAILY@0630 [facility] Pharmacy Consult (Consult Rx Vancomycin Dosing) 1 each MISCELLANE DAILY PRN PRN Reason: Consult order Prednisone (Prednisone 20 Mg Tablet) 20 mg PO BID [facility] Senna (Sennosides 8.6 Mg Tablet) 17.2 mg PO BEDTIME PRN PRN Reason: Constipation Sodium Chloride (0.9 % Sodium Chloride Flush 3 Ml Syringe) 3 ml IVFLUSH QSHIFT [facility] Vitamin D (Cholecalciferol (Vitamin D3) 25 Mcg Tablet) 25 mcg PO DAILY [facility] Home Medications Medication Instructions Recorded Confirmed Last Taken Type azelastine 137 mcg (0.1 %) nasal 2 spray INTRANASAL BID 12/26/21 01/01/22 01/01/22 History spray aerosol bupropion HCl 150 mg 24 hr tablet, 1 tab PO DAILY 12/26/21 01/01/22 01/01/22 History extended release calcium citrate 200 mg (950 mg) 1 tab PO DAILY 12/26/21 01/01/22 12/26/21 History tablet cholecalciferol (vitamin D3) 25 1 tab PO DAILY 12/26/21 01/01/22 01/01/22 History mcg (1,000 unit) tablet fluticasone propionate 230 1 puff INHALATION BID 12/26/21 01/01/22 01/01/22 History mcg-salmeterol 21 mcg/actuation HFA inhaler (Advair HFA) hydroxyzine HCl 25 mg tablet 1 tab PO Q8H PRN 12/26/21 01/01/22 Unknown History ibuprofen 600 mg tablet 1 tab PO Q8H PRN 12/26/21 01/01/22 01/01/22 History ipratropium bromide 0.02 % 2.5 ml INHALATION QID PRN 12/26/21 01/01/22 Unknown History solution for inhalation ketotifen fumarate 0.025 % (0.035 1 drp OPHTHALMIC (EYE) BID PRN 12/26/21 01/01/22 Unknown History %) eye drops loratadine 10 mg tablet 1 tab PO DAILY 12/26/21 01/01/22 01/01/22 History mepolizumab 100 mg/mL subcutaneous 100 mg SUBCUT Q4W 12/26/21 01/01/22 12/04/21 History auto-injector (Nucala) montelukast 10 mg tablet 1 tab PO BEDTIME 12/26/21 01/01/22 12/25/21 History omeprazole 40 mg capsule,delayed 1 cap PO DAILY@0630 12/26/21 01/01/22 01/01/22 History release tiotropium bromide 1.25 2 puff PO DAILY 12/26/21 01/01/22 01/01/22 History mcg/actuation mist for inhalation (Spiriva Respimat) ipratropium 20 mcg-albuterol 100 1 puff INHALATION QID 01/01/22 01/01/22 History mcg/actuation mist for inhalation (Combivent Respimat) oxycodone 5 mg tablet 1 - 2 tab PO Q4-6H PRN 01/01/22 01/01/22 01/01/22 History Physical Exam Vital Signs and Narrative: Vital Signs: Last Vital Signs Temp 97.6 F 01/01/22 21:43 Pulse 74 01/01/22 21:43 Resp 12 01/01/22 21:43 BP 136/77 01/01/22 21:43 Pulse Ox 99 01/01/22 21:43 BMI result Body Mass Index 32.8 Results Labs CBC and Chem 7: 01/01/22 19:17 01/01/22 19:17 Labs: Laboratory Results - last 24 hr 01/01/22 01/01/22 01/01/22 19:17 19:17 19:17 MCV 83.9 MCH 26.4 L MCHC 31.4 RDW 13.7 Plt Count 344 D MPV 10.4 Immature Gran % (Auto) 2.5 H Neut % (Auto) 87.6 H Lymph % (Auto) 5.8 L [place] % (Auto) 3.9 Eos % (Auto) 0.0 Baso % (Auto) 0.2 Lymph # (Auto) 1.0 L [place] # (Auto) 0.7 Eos # (Auto) 0.0 Baso # (Auto) 0.0 Abs Immat Gran (auto) 0.42 H Absolute Neuts (auto) 14.5 H Absolute Nucleated RBC 0.000 Nucleated RBC % (auto) 0.0 PT 11.3 INR 1.0 APTT 27.7 D-Dimer High Sensitivty 370 Anion Gap 11 L Estim Creat Clear Calc 73.6 Estimated GFR > 60 Random Glucose 156 H Lactic Acid Calcium 9.0 Total Bilirubin 0.2 AST 13 ALT 28 Alkaline Phosphatase 115 Troponin I High Sens Total Protein 6.5 Albumin 3.4 L Lipase 16 COVID-19 (NEIL) COVID-19 Clin Com 01/01/22 01/01/22 01/01/22 19:17 19:17 19:17 MCV MCH MCHC RDW Plt Count MPV Immature Gran % (Auto) Neut % (Auto) Lymph % (Auto) [place] % (Auto) Eos % (Auto) Baso % (Auto) Lymph # (Auto) [place] # (Auto) Eos # (Auto) Baso # (Auto) Abs Immat Gran (auto) Absolute Neuts (auto) Absolute Nucleated RBC Nucleated RBC % (auto) PT INR APTT D-Dimer High Sensitivty Anion Gap Estim Creat Clear Calc Estimated GFR Random Glucose Lactic Acid 1.7 Calcium Total Bilirubin AST ALT Alkaline Phosphatase Troponin I High Sens < 3.5 Total Protein Albumin Lipase COVID-19 (NEIL) Negative COVID-19 Clin Com See Note Imaging Radiologist's Impressions: Impressions Chest X-Ray 01/01/22 19:09 IMPRESSION: Opacity in the right upper lung and parahilar region on the right. These findings suggest developing areas of infiltrate. There is no pneumothorax or effusion. Possible additional focus left midlung. Short-term Follow-up films are recommended after treatment to assess for resolution and establish baseline 4 - 6 weeks Chest CTA 01/01/22 21:00 IMPRESSION: There is no filling defect to suggest a pulmonary embolism. Several areas of opacity in the right lung and some of these appear rounded with central lucencies. This may represent necrotic central material. Therefore infection needs to be considered here. Of course metastatic malignancy would be in the differential. There may be one small area on the left. As described above I must consider a breast lesion on the right around the nipple. Mammography and ultrasound recommended VTE: negative Assessment and Plan (1) Pneumonia: Qualifiers: Laterality: bilateral Pneumonia type: due to unspecified organism Status: Acute (2) Asthma exacerbation: Qualifiers: Asthma persistence: persistent Asthma severity: moderate Qualified Code(s): J45.41 - Moderate persistent asthma with (acute) exacerbation Status: Acute (3) Pleuritic chest pain: Status: Acute Plan 51-year-old female with a past medical history of asthma, recently discharged from the hospital after being treated for asthma/influenza on 12/27/2021; presented to the hospital today with a chief complaint of chest pain. Chest pain: Pleuritic in nature. Atypical. EKG nonischemic. Troponin negative. Pain control. CT scan showed no evidence of pulmonary embolism Hcap: CT scan showed findings concerning for infection versus necrotic lucencies on the right upper lobe; also metastatic malignancy in the differential. Patient being covered with IV vancomycin Zosyn Pulmonology consult Right breast lesion: Will consult Oncology. Recent history of asthma: Patient respiratory status improving. Continue prednisone taper. DuoNebs p.r.n.. Continue home inhalers. DVT prophylaxis: Lovenox Code status: Full code Quality Stroke Does the patient have a stroke diagnosis?: No VTE Prior VTE?: No VTE Risk Level:: Medical - moderate - high VTE Device Contraindication: Treatment Not Indicated VTE Drug Contraindication: N/A - Med Ordered
[2022-01-01] MEDS: guaiFENesin DM 100/10/5 ML 5 ML SYRUP 10 ML PO (23:27)
[2022-01-02] VITALS (14 sets, daily range): BP systolic 119–167; BP diastolic 56–93; PULSE 60–74; RESP 12–20; TEMP 36.3–37.1; O2SAT 95–100; BMI 32.5
[2022-01-02] MEDS: vancomycin HCL 1,250 MG in 0.9 % Sodium Chloride 250 ML 166.67 MG IV (01:09)
[2022-01-02] MEDS: 0.9 % Sodium Chloride Flush 3 ML SYRINGE IVFLUSH ×3 (01:10→16:12)
[2022-01-02] MEDS: Piperacillin Sodium/Tazobactam 3.375 GM in 0.9 % Sodium Chloride 50 ML IV ×4 (04:08→22:14)
--- NOTE | 2022-01-02 04:09 | PC.NURSE ---
Pt stated that she received her Nucala injection a few days ago.
[2022-01-02] MEDS: Albuterol/Iprat 2.5/0.5MG 3 ML AMPUL.NEB INHALE ×3 (04:25→17:33)
[2022-01-02] MEDS: guaiFENesin DM 100/10/5 ML 5 ML SYRUP 10 ML PO ×4 (04:42→22:14)
[2022-01-02] MEDS: HYDROmorphone HCl 1 MG/ML SYRINGE 0.5 MG IVPUSH ×3 (05:13→16:26)
[2022-01-02 06:48] LABS: MANUAL DIFF FLAG NO
[2022-01-02 06:51] LABS: Basophils Percent Auto 0.2 % (0-2); Hematocrit 34.6 % (37.0-47.0); Hemoglobin 11.1 g/dl (12.0-16.0); Imm Gran Abs Auto 0.64 X10*3/uL (0.00-0.03); Imm Gran Pct Auto 3.4 % (0.0-0.4); Lymphocytes Absolute Auto 0.9 X10*3/uL (1.2-4.9); Lymphocytes Percent Auto 4.6 % (20-40); Mean Corpuscular HGB Conc 32.1 g/dl (31.0-35.0); Mean Corpuscular Hemoglobin 27.1 pg (27.0-33.0); Mean Corpuscular Volume 84.6 fL (80.0-98.0); Mean Platelet Volume 10.4 fL (9.4-12.3); Monocytes Absolute Auto 0.7 X10*3/uL (0.1-1.2); Monocytes Percent Auto 3.5 % (2-11); Neutrophils Absolute Auto 16.5 x10*3/uL (2.0-8.3); Neutrophils Percent Auto 88.3 % (45-73); Platelet Count 309 X10*3/uL (160-400); Red Blood Count 4.09 X10*6/uL (4.20-5.50); Red Cell Distribution Width 13.6 % (11.0-16.0); White Blood Count 18.7 X10*3/uL (4.8-10.8)
[2022-01-02 07:08] LABS: Anion Gap 10 (12-20); Blood Urea Nitrogen 17 mg/dL (9-16); Calcium 8.6 mg/dL (8.4-10.2); Carbon Dioxide 25 mmol/L (22-29); Chloride 106 mmol/L (96-108); Creatinine Clr Calc Pharmacy 81.3; Estimated Glomerular Filt Rate > 60; Glucose Random 212 mg/dL (60-115); Potassium 4.3 mmol/L (3.3-5.1); Sodium 137 mmol/L (135-145)
[2022-01-02] MEDS: Cholecalciferol (Vitamin D3) 25 MCG TABLET PO (08:22)
[2022-01-02] MEDS: buPROPion HCl XL 150 MG TAB.ER.24H PO (08:22)
[2022-01-02] MEDS: Loratadine 10 MG TABLET PO (08:22)
[2022-01-02] MEDS: predniSONE 20 MG TABLET PO ×2 (08:22→20:40)
[2022-01-02] MEDS: Omeprazole 40 MG CAPSULE.DR PO (08:23)
--- NOTE | 2022-01-02 09:24 | PM.CNPUL ---
History of Present Illness History of Present Illness Consult date: 01/02/22 Reason for consult: chest pain, asthma and pneumonia Chief complaint: Chest Pain Narrative: [address] [address] Internal Med History&Physical Draft Patient: Codie Fernández MR#: [id number] : 1970 Acct:[id number] Age/Sex: 51 / F Loc: [facility]- ?? ? Attending Dr: Tres Viveros MD 51-year-old female with a past medical history of asthma, recently discharged from the hospital over a few being treated for asthma/influenza on 12/27/2021; presented to the hospital today with a chief complaint of chest pain.? The pain she describes is mostly in the right lateral chest,which is more pleuritic in nature, and worsens with deep inspiration. She denies having fever or chills, but has been expect written yellowish phlegm. Patient was discharged with 5 days course of prednisone which she has completed. She was also prescribed prednisone taper from [place], which she just completed yesterday. Patient has been treated frequently with short courses of prednisone.? Denies any GI symptoms.? Patient denies any weight loss or change in appetite. Review of all other systems is negative except mentioned above. 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 Patient also sees allergy specialists, who have it treated her with NUCALA 100 subQ Q 28 days. Patient has been getting regular physical exams at [facility]. Last mammogram in 2020 was negative. She is nonsmoker and nondrinker. Medical History? 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) Alcohol intake: never Patient Tobacco Use Status: Never used Tobacco Use of substances other than those prescribed or required for medical reasons: No Advance Directives: Yes Advance Directives on File: Yes Advance Directives Date on File: 12/26/21 Patient : No service: No Current occupational status: disabled Meds Allergies Allergy/AdvReac Type Severity Reaction Status Date / Time latex [Latex] Allergy Mild UNKNOWN Verified 12/26/21 09:51 cats, pollen, mold Allergy Unknown Unknown Uncoded 12/26/21 09:51 Latex Allergy Unknown Unknown Uncoded 12/26/21 09:51 Active Medications: Current Medications Acetaminophen (Acetaminophen 325 Mg Tablet) 650 mg PO Q6H PRN PRN Reason: Pain, Mild (Pain Scale 1-3) Albuterol/Ipratropium (Albuterol/Iprat 2.5/0.5mg 3 Ml Ampul.Neb) 3 ml INHALE RQ4H PRN PRN Reason: Shortness of Breath/Wheezing Albuterol/Ipratropium (Albuterol/Iprat 2.5/0.5mg 3 Ml Ampul.Neb) 3 ml INHALE RQ6H [facility] Last Admin: 01/02/22 04:25 Dose: 3 ml Documented by: Azelastine HCl (Azelastine Hcl Nasal 137 Mcg/[place] 30 Ml) 2 spray NOSTRIL-B BID [facility] Bupropion HCl (Bupropion Hcl Xl 150 Mg Tab.Er.24h) 150 mg PO DAILY [facility] Last Admin: 01/02/22 08:22 Dose: 150 mg Documented by: Calcium Carbonate (Calcium Carbonate 500 Mg Tablet) 500 mg PO DAILY [facility] Last Admin: 01/02/22 08:22 Dose: 500 mg Documented by: Fluticasone/Vilanterol (Fluticasone/Vilanterol 200/25 Blst.W.Dev) 1 puff INHALE RDAILY [facility] Last Admin: 01/02/22 08:37 Dose: Not Given Documented by: Guaifenesin/Dextromethorphan (Guaifenesin Dm 100/10/5 Ml 5 Ml Syrup) 10 ml PO Q6H [facility] Last Admin: 01/02/22 04:42 Dose: 10 ml Documented by: Hydromorphone HCl (Hydromorphone Hcl 1 Mg/Ml Syringe) 0.5 mg IVPUSH Q4H PRN; Protocol PRN Reason: Pain, Severe (Pain Scale 7-10) Last Admin: 01/02/22 05:13 Dose: 0.5 mg Documented by: Hydroxyzine HCl (Hydroxyzine Hcl 25 Mg Tablet) 25 mg PO Q8H PRN PRN Reason: itch Piperacillin Sod/Tazobactam (Sod 3.375 gm/ Sodium Chloride) 50 mls @ 100 mls/hr IV Q6H [facility] Last Admin: 01/02/22 08:25 Dose: 100 mls/hr Documented by: Vancomycin HCl 750 mg/ Sodium (Chloride) 265 mls @ 265 mls/hr IV Q12H [facility] Ipratropium [place] (Ipratropium [place] 0.5 Mg/2.5 Ml Solution) 0.5 mg INHALE RQID PRN PRN Reason: wheezing Ketotifen Fumarate (Ketotifen Fumarate 0.025% Oph 5 Ml Drpbtl) 1 drop EYE-BOTH BID PRN PRN Reason: itch Loratadine (Loratadine 10 Mg Tablet) 10 mg PO DAILY [facility] Last Admin: 01/02/22 08:22 Dose: 10 mg Documented by: Melatonin (Melatonin 3 Mg Tablet) 6 mg PO BEDTIME PRN PRN Reason: Insomnia Mepolizumab (Mepolizumab 100 Mg/Ml Auto.Injct) 100 mg SUBCUT Q28D [facility] Last Admin: 01/02/22 04:08 Dose: Not Given Documented by: Montelukast Sodium (Montelukast Sodium 10 Mg Tablet) 10 mg PO BEDTIME [facility] Omeprazole (Omeprazole 40 Mg Capsule.Dr) 40 mg PO DAILY@0630 [facility] Last Admin: 01/02/22 08:23 Dose: 40 mg Documented by: Pharmacy Consult (Consult Rx Vancomycin Dosing) 1 each MISCELLANE DAILY PRN PRN Reason: Consult order Prednisone (Prednisone 20 Mg Tablet) 20 mg PO BID [facility] Last Admin: 01/02/22 08:22 Dose: 20 mg Documented by: Senna (Sennosides 8.6 Mg Tablet) 17.2 mg PO BEDTIME PRN PRN Reason: Constipation Sodium Chloride (0.9 % Sodium Chloride Flush 3 Ml Syringe) 3 ml IVFLUSH QSHIFT [facility] Last Admin: 01/02/22 08:26 Dose: 3 ml Documented by: Tiotropium [place] (Tiotropium [place] 18 Mcg Cap.W.Dev) 1 puff INHALE RDAILY [facility] Last Admin: 01/02/22 08:37 Dose: Not Given Documented by: Vitamin D (Cholecalciferol (Vitamin D3) 25 Mcg Tablet) 25 mcg PO DAILY [facility] Last Admin: 01/02/22 08:22 Dose: 25 mcg Documented by: Home Medications Medication Instructions Recorded Confirmed Last Taken Type azelastine 137 mcg (0.1 %) nasal 2 spray INTRANASAL BID 12/26/21 01/01/22 01/01/22 History spray aerosol bupropion HCl 150 mg 24 hr tablet, 1 tab PO DAILY 12/26/21 01/01/22 01/01/22 History extended release calcium citrate 200 mg (950 mg) 1 tab PO DAILY 12/26/21 01/01/22 12/26/21 History tablet cholecalciferol (vitamin D3) 25 1 tab PO DAILY 12/26/21 01/01/22 01/01/22 History mcg (1,000 unit) tablet fluticasone propionate 230 1 puff INHALATION BID 12/26/21 01/01/22 01/01/22 History mcg-salmeterol 21 mcg/actuation HFA inhaler (Advair HFA) hydroxyzine HCl 25 mg tablet 1 tab PO Q8H PRN 12/26/21 01/01/22 Unknown History ibuprofen 600 mg tablet 1 tab PO Q8H PRN 12/26/21 01/01/22 01/01/22 History ipratropium bromide 0.02 % 2.5 ml INHALATION QID PRN 12/26/21 01/01/22 Unknown History solution for inhalation ketotifen fumarate 0.025 % (0.035 1 drp OPHTHALMIC (EYE) BID PRN 12/26/21 01/01/22 Unknown History %) eye drops loratadine 10 mg tablet 1 tab PO DAILY 12/26/21 01/01/22 01/01/22 History mepolizumab 100 mg/mL subcutaneous 100 mg SUBCUT Q4W 12/26/21 01/01/22 12/04/21 History auto-injector (Nucala) montelukast 10 mg tablet 1 tab PO BEDTIME 12/26/21 01/01/22 12/25/21 History omeprazole 40 mg capsule,delayed 1 cap PO DAILY@0630 12/26/21 01/01/22 01/01/22 History release tiotropium bromide 1.25 2 puff PO DAILY 12/26/21 01/01/22 01/01/22 History mcg/actuation mist for inhalation (Spiriva Respimat) ipratropium 20 mcg-albuterol 100 1 puff INHALATION QID 01/01/22 01/01/22 01/01/22 History mcg/actuation mist for inhalation (Combivent Respimat) oxycodone 5 mg tablet 1 - 2 tab PO Q4-6H PRN 01/01/22 01/01/22 01/01/22 History Physical Exam Vital Signs: Vital Signs: Last Vital Signs Temp 97.7 F 01/02/22 07:30 Pulse 68 01/02/22 07:30 Resp 12 01/02/22 07:30 BP 142/80 H 01/02/22 07:30 Pulse Ox 95 01/02/22 07:30 BMI result Body Mass Index 32.8 Const: Other: At time of my examination the patient is awake and orientated, complains of right-sided chest comfort but does not seem to be in distress. General: no acute distress, alert and awake Orientation/consciousness: patient oriented x3 HEENT: Head: Yes normal to inspection General nose exam: No nasal polyps present and No nasal discharge present Face and sinus: Yes sinuses nontender Mouth: oropharynx normal Throat: Yes posterior oropharynx normal Eyes: General: appearance normal, both eyes and all related structures Neck: Neck: Yes normal visual inspection, Yes no lymphadenopathy, Yes trachea midline and Yes no JVD Thyroid: Thyroid normal Chest: Chest palpation & inspection: normal inspection of the chest, normal palpation of entire chest wall and no tenderness Resp: Other: Percussion note is resonant, she does have good breath sounds on both sides, There are inspiratory crackles over the right mid chest, no wheezes. Cardio: Palpation: normal PMI Rate: regular rate Rhythm: regular rhythm Heart sounds: no gallops and no murmurs Peripheral pulses: Peripheral pulses 2+ throughout GI: Palpation (GI): Soft to palpation, nontender, No hepatosplenomegaly present and no masses Auscultation: normal bowel sounds Back/Spine/Pelvis: Thoracic/Lumbar Spine: thoracic and lumbar spine normal to inspection Skin: General skin exam: no rashes or lesions noted Neuro: General: patient oriented x3 and no focal motor deficits Cranial nerves: Yes CN's II-XII intact bilaterally Extrem: General: Yes normal to inspection, Yes no clubbing, cyanosis or edema and Yes no calf tenderness Psych: Appearance: grossly normal and well kempt Speech and movement: Normal speech and movement present Results Laboratory Findings CBC and BMP: 01/02/22 06:40 01/02/22 06:40 ABG, PT/INR, D-dimer: PT/INR, D-dimer PT 11.3 SEC (9.9-13.0) 01/01/22 19:17 INR 1.0 (0.9-1.1) 01/01/22 19:17 Abnormal lab findings: Abnormal Labs 01/01/22 01/01/22 01/02/22 19:17 19:17 06:40 WBC 16.6 H 18.7 H RBC 4.09 L Hgb 11.1 L Hct 34.6 L MCH 26.4 L Immature Gran % (Auto) 2.5 H 3.4 H Neut % (Auto) 87.6 H 88.3 H Lymph % (Auto) 5.8 L 4.6 L Lymph # (Auto) 1.0 L 0.9 L Abs Immat Gran (auto) 0.42 H 0.64 H Absolute Neuts (auto) 14.5 H 16.5 H Anion Gap 11 L BUN 22 H Random Glucose 156 H Albumin 3.4 L 01/02/22 06:40 WBC RBC Hgb Hct MCH Immature Gran % (Auto) Neut % (Auto) Lymph % (Auto) Lymph # (Auto) Abs Immat Gran (auto) Absolute Neuts (auto) Anion Gap 10 L BUN 17 H Random Glucose 212 H Albumin Diagnostic Findings Chest x-ray: report reviewed and image reviewed CT scan - chest: report reviewed and image reviewed Assessment and Plan (1) Asthma exacerbation: Qualifiers: Asthma persistence: persistent Asthma severity: moderate Qualified Code(s): J45.41 - Moderate persistent asthma with (acute) exacerbation Status: Acute (2) Pleuritic chest pain: Status: Acute (3) Pneumonia: Qualifiers: Laterality: bilateral Pneumonia type: due to unspecified organism Status: Acute Plan This patient with longstanding history of bronchial asthma, who has been on maximum medical treatment, including frequent courses of prednisone, And she is also on Nucala injections Q 28 days. Currently bronchial asthma with slight exacerbation due to associated infection. She probably has post viral disease pneumonia, predominantly in right upper lobe. She has rounded densities with central necrosis( cavitary lesions ) Chest pain, pleuritic probably related to pneumonia, Recc . Sputum Gram stain and culture is ordered, it may not be reliable because she already has received a dose of antibiotic. Treat with broad-spectrum antibiotic , as has been started. It can be modified after we have the culture reports. Continue her asthma treatment , with Spiriva Respimat, DuoNeb updrafts, montelukast, oxygen supplementation as needed. Because of active pneumonia I would hold Advair. Prednisone 20 mg b.i.d. and will be tapered down slowly. She will need repeat CT scan of the chest after a short interval. Procedures Date of Service Date of Service: 01/02/22
--- NOTE | 2022-01-02 09:53 | P.CNHO_ITS ---
Subjective - Subjective Chief complaint: Consult for: 1. Breast mass. 2. Necrotic areas in the ribs. Patient: new to practice Consult date: 01/02/22 Requesting Physician: Felice. Primary Care Provider: Unknown Physician Medical Summary: DIAGNOSIS: BREAST MASS. HPI - Consult Narrative Reason for consult: Consult for: breast mass. Narrative: Codie Fernández is a 51 year old lady,recently discharged from the hospital after being treated for asthma/influenza on 12/27/2021; presented to the hospital yesterday, with a chief complaint of chest pain. Patient reported over the past few days she has been having cough with yellowish to brown sputum production. Denies any fevers. Mentioned that she has been continually take her prednisone taper; mentions her shortness of breath has been improving Reports for the past couple days she noted to have right-sided chest pain; worsens with deep inspiration; denies any associated lightheadedness dizziness or diaphoresis. Pain is constant and sharp in nature. Denies any GI symptoms. Patient denies any weight loss or change in appetite. Review of all other systems is negative except mentioned above ER course: Patient noted to have right lateral chest wall pain; pleuritic in nature; EKG nonischemic; troponin negative; chest and x-ray showed right upper lobe infiltrate concerning for pneumonia; also noted to have follow focus on the left midlung; concerning for Hcap-started on antibiotics; CT chest was done which showed no evidence of pulmonary embolism but noted right upper lobe findings concerning for necrosis; malignancy cannot be ruled out. Admitted to the hospital for further management. Past medical history of: Asthma. Review of Systems - Constitutional Reports system reviewed and no additional complaints, except as documented - Eyes Reports system reviewed and no additional complaints, except as documented - ENT Reports system reviewed and no additional complaints, except as documented - Cardiovascular Reports system reviewed and no additional complaints, except as documented - Respiratory Reports no additional respiratory complaints - Gastrointestinal Reports system reviewed and no additional complaints, except as documented - Genitourinary Reports no additional female genitourinary complaints - Musculoskeletal Reports system reviewed and no additional complaints, except as documented - Integumentary/Breasts Skin/Breast: Reports no additional skin complaints - Neurologic Reports system reviewed and no additional complaints, except as documented - Psychiatric Reports system reviewed and no additional complaints, except as documented - Endocrine Reports no additional endocrine complaints - Hematologic/Lymphatic Reports system reviewed and no additional complaints, except as documented - Allergic/Immunologic Reports system reviewed and no additional complaints, except as documented Oncology Screenings - ECOG Performance Status ECOG Performance Status: 0 PMFSH Medical History: Medical History (Last Reviewed 01/03/22 @ 23:00 by Brittney Cameron MD) Asthma Functional capacity: independent ambulation Patient : No Social History: Social History (Last Reviewed 01/03/22 @ 23:00 by Brittney Cameron MD) Living Situation History: Household Members: Family Caregiver staying overnight: No Housing: House Do you presently have visiting nurse or other home services: Yes Tobacco History: Patient Tobacco Use Status: Never used Tobacco Advance Directives: Advance Directives Date on File: 12/26/21 Occupation Assessmet: service: No Current occupational status: disabled Home Medications and Allergies Current Medications: Current Medications Acetaminophen (Acetaminophen 325 Mg Tablet) 650 mg PO Q6H PRN PRN Reason: Pain, Mild (Pain Scale 1-3) Albuterol/Ipratropium (Albuterol/Iprat 2.5/0.5mg 3 Ml Ampul.Neb) 3 ml INHALE RQ4H PRN PRN Reason: Shortness of Breath/Wheezing Albuterol/Ipratropium (Albuterol/Iprat 2.5/0.5mg 3 Ml Ampul.Neb) 3 ml INHALE RQ6H [facility] Last Admin: 01/02/22 04:25 Dose: 3 ml Documented by: Azelastine HCl (Azelastine Hcl Nasal 137 Mcg/[place] 30 Ml) 2 spray NOSTRIL-B BID [facility] Bupropion HCl (Bupropion Hcl Xl 150 Mg Tab.Er.24h) 150 mg PO DAILY [facility] Last Admin: 01/02/22 08:22 Dose: 150 mg Documented by: Calcium Carbonate (Calcium Carbonate 500 Mg Tablet) 500 mg PO DAILY [facility] Last Admin: 01/02/22 08:22 Dose: 500 mg Documented by: Fluticasone/Vilanterol (Fluticasone/Vilanterol 200/25 Blst.W.Dev) 1 puff INHALE RDAILY [facility] Last Admin: 01/02/22 08:37 Dose: Not Given Documented by: Guaifenesin/Dextromethorphan (Guaifenesin Dm 100/10/5 Ml 5 Ml Syrup) 10 ml PO Q6H [facility] Last Admin: 01/02/22 04:42 Dose: 10 ml Documented by: Hydromorphone HCl (Hydromorphone Hcl 1 Mg/Ml Syringe) 0.5 mg IVPUSH Q4H PRN; Protocol PRN Reason: Pain, Severe (Pain Scale 7-10) Last Admin: 01/02/22 05:13 Dose: 0.5 mg Documented by: Hydroxyzine HCl (Hydroxyzine Hcl 25 Mg Tablet) 25 mg PO Q8H PRN PRN Reason: itch Piperacillin Sod/Tazobactam (Sod 3.375 gm/ Sodium Chloride) 50 mls @ 100 mls/hr IV Q6H [facility] Last Admin: 01/02/22 08:25 Dose: 100 mls/hr Documented by: Vancomycin HCl 750 mg/ Sodium (Chloride) 265 mls @ 265 mls/hr IV Q12H [facility] Ipratropium [place] (Ipratropium [place] 0.5 Mg/2.5 Ml Solution) 0.5 mg INHALE RQID PRN PRN Reason: wheezing Ketotifen Fumarate (Ketotifen Fumarate 0.025% Oph 5 Ml Drpbtl) 1 drop EYE-BOTH BID PRN PRN Reason: itch Loratadine (Loratadine 10 Mg Tablet) 10 mg PO DAILY [facility] Last Admin: 01/02/22 08:22 Dose: 10 mg Documented by: Melatonin (Melatonin 3 Mg Tablet) 6 mg PO BEDTIME PRN PRN Reason: Insomnia Mepolizumab (Mepolizumab 100 Mg/Ml Auto.Injct) 100 mg SUBCUT Q28D [facility] Last Admin: 01/02/22 04:08 Dose: Not Given Documented by: Montelukast Sodium (Montelukast Sodium 10 Mg Tablet) 10 mg PO BEDTIME [facility] Omeprazole (Omeprazole 40 Mg Capsule.Dr) 40 mg PO DAILY@0630 [facility] Last Admin: 01/02/22 08:23 Dose: 40 mg Documented by: Pharmacy Consult (Consult Rx Vancomycin Dosing) 1 each MISCELLANE DAILY PRN PRN Reason: Consult order Prednisone (Prednisone 20 Mg Tablet) 20 mg PO BID [facility] Last Admin: 01/02/22 08:22 Dose: 20 mg Documented by: Senna (Sennosides 8.6 Mg Tablet) 17.2 mg PO BEDTIME PRN PRN Reason: Constipation Sodium Chloride (0.9 % Sodium Chloride Flush 3 Ml Syringe) 3 ml IVFLUSH QSHIFT [facility] Last Admin: 01/02/22 08:26 Dose: 3 ml Documented by: Tiotropium [place] (Tiotropium [place] 18 Mcg Cap.W.Dev) 1 puff INHALE RDAILY [facility] Last Admin: 01/02/22 08:37 Dose: Not Given Documented by: Vitamin D (Cholecalciferol (Vitamin D3) 25 Mcg Tablet) 25 mcg PO DAILY [facility] Last Admin: 01/02/22 08:22 Dose: 25 mcg Documented by: Home Medications Medication Instructions Recorded Confirmed Type azelastine 137 mcg (0.1 %) nasal 2 spray INTRANASAL BID 12/26/21 01/01/22 History spray aerosol bupropion HCl 150 mg 24 hr tablet, 1 tab PO DAILY 12/26/21 01/01/22 History extended release calcium citrate 200 mg (950 mg) 1 tab PO DAILY 12/26/21 01/01/22 History tablet cholecalciferol (vitamin D3) 25 1 tab PO DAILY 12/26/21 01/01/22 History mcg (1,000 unit) tablet fluticasone propionate 230 1 puff INHALATION BID 12/26/21 01/01/22 History mcg-salmeterol 21 mcg/actuation HFA inhaler (Advair HFA) hydroxyzine HCl 25 mg tablet 1 tab PO Q8H PRN 12/26/21 01/01/22 History ibuprofen 600 mg tablet 1 tab PO Q8H PRN 12/26/21 01/01/22 History ipratropium bromide 0.02 % 2.5 ml INHALATION QID PRN 12/26/21 01/01/22 History solution for inhalation ketotifen fumarate 0.025 % (0.035 1 drp OPHTHALMIC (EYE) BID PRN 12/26/21 01/01/22 History %) eye drops loratadine 10 mg tablet 1 tab PO DAILY 12/26/21 01/01/22 History mepolizumab 100 mg/mL subcutaneous 100 mg SUBCUT Q4W 12/26/21 01/01/22 History auto-injector (Nucala) montelukast 10 mg tablet 1 tab PO BEDTIME 12/26/21 01/01/22 History omeprazole 40 mg capsule,delayed 1 cap PO DAILY@0630 12/26/21 01/01/22 History release tiotropium bromide 1.25 2 puff PO DAILY 12/26/21 01/01/22 History mcg/actuation mist for inhalation (Spiriva Respimat) ipratropium 20 mcg-albuterol 100 1 puff INHALATION QID 01/01/22 01/01/22 History mcg/actuation mist for inhalation (Combivent Respimat) oxycodone 5 mg tablet 1 - 2 tab PO Q4-6H PRN 01/01/22 01/01/22 History Allergies Allergy/AdvReac Type Severity Reaction Status Date / Time latex [Latex] Allergy Mild UNKNOWN Verified 12/26/21 09:51 cats, pollen, mold Allergy Unknown Unknown Uncoded 12/26/21 09:51 Latex Allergy Unknown Unknown Uncoded 12/26/21 09:51 Physical Exam Vital signs: Vital Signs Temp 97.7 F 01/02/22 07:30 Pulse 68 01/02/22 07:30 Resp 12 01/02/22 07:30 BP 142/80 H 01/02/22 07:30 Pulse Ox 95 01/02/22 07:30 Intake & Output 01/01/22 01/02/22 01/02/22 18:59 06:59 18:59 Intake Total 400 / 400 Balance 400 / 400 Intake: Intake, IV Amount 400 / 400 Piperacillin Sodium/Tazobactam 50 / 50 3.375 gm In 0.9 % Sodium Chloride 50 ml @ 100 mls/hr IV Q6H [facility] Rx#:[id number] Piperacillin Sodium/Tazobactam 100 / 100 4.5 gm In 0.9 % Sodium Chloride 100 ml @ 200 mls/hr IV ONCE STA Rx#:[id number] vancomycin HCL 1,250 mg In 0.9 250 / 250 % Sodium Chloride 250 ml @ 166. 667 mls/hr IV ONCE ONE Rx#: [id number] Other: Weight 78.925 kg Weight 78.925 kg - Constitutional Present: mild distress - Routine HEENT Exam Head: Present: normal inspection ENT: Present: mucous membranes moist - Routine Neck Exam Present: supple - Routine Chest/Breast/Axilla Exam Breast: Present: Normal Exam Comments: No obvious palpable breast mass in the right breast. - Routine Respiratory Exam Present: decreased breath sounds - Routine Cardiovascular Exam Cardiovascular: Present: RRR, S1, S2 - Routine Abdominal Exam Present: nontender - Routine Extremities Exam Present: nontender - Routine Skin Exam Present: intact - Routine Neurological Exam Present: alert, oriented X3 - Detailed Neurological Exam: Coma Scale Eye Opening: Spontaneous (4) Verbal Response: Oriented (5) Motor Response: Obeys commands (6) Claire Coma Scale Total: 15 - Routine Psychiatric Exam Present: depressed Hem/Onc Consult Result - Labs CBC & Chem 7: 01/03/22 10:42 01/04/22 06:21 Labs: Short CBC 01/01/22 01/02/22 Range/Units 19:17 06:40 WBC 16.6 H 18.7 H (4.8-10.8) X10*3/uL Hgb 12.1 11.1 L (12.0-16.0) g/dl Hct 38.5 34.6 L (37.0-47.0) % Plt Count 344 D 309 (160-400) X10*3/uL BMP 01/01/22 01/02/22 19:17 06:40 Sodium 139 137 Potassium 4.4 4.3 Chloride 107 106 Carbon Dioxide 25 25 BUN 22 H 17 H Creatinine 0.84 0.76 Calcium 9.0 8.6 Liver Function 01/01/22 Range/Units 19:17 Total Bilirubin 0.2 (0.0-1.0) mg/dL AST 13 (5-31) U/L ALT 28 (0-31) U/L Alkaline Phosphatase 115 (39-117) U/L Albumin 3.4 L (3.5-5.0) g/dL Assessment and Plan Patient Active problem list reviewed?: Yes (1) Breast mass, right Status: Acute Assessment and plan: 51-year-old lady with recently diagnosed Right breast lesion. CT scan of the chest revealed: Several areas of opacity in the right lung and some of these appear rounded with central lucencies. This may represent necrotic central material. Therefore infection needs to be considered here. Of course metastatic malignancy would be in the differential. There may be one small area on the left. CT scan showed findings concerning for infection versus necrotic lucencies on the right upper lobe; also metastatic malignancy in the differential. Patient being covered with IV vancomycin Zosyn. Reviewed images with the radiologist. PLAN: Would treat for infection upfront. Wait 6 weeks and then repeat CT scan. If the abnormality persists to proceed with biopsy at that time. For the breast mass, she will need ultrasound and mammogram as an outpatient, for confirmation. Can then decide biopsy under ultrasound versus mammogram based upon the roxana rebollar. Thank you for the consult, Will follow along with you. CC:, - Time Spent With Patient Time Spent with Patient (in minutes): 30
[2022-01-02] MEDS: Azelastine HCl Nasal 137 MCG/Spray 30 ML 2 SPRAY NOSTRIL-B ×2 (10:17→20:40)
--- NOTE | 2022-01-02 11:15 | HO.PM.IMPN ---
Subjective Subjective Date of Service: 01/02/22 Interval History: follow-up on chest pain, pneumonia, breast lesion. Interval history: Still have Prolia chest pain, cough, no fever Review of Systems no fever has some chest pain has cough Physical Exam Vital Signs: Vital Signs: Last Vital Signs Temp 97.7 F 01/02/22 07:30 Pulse 60 01/02/22 10:24 Resp 19 01/02/22 10:24 BP 147/87 H 01/02/22 10:24 Pulse Ox 98 01/02/22 10:24 BMI result Body Mass Index 32.8 Const: Other: General: AO X 3, no acute distress Resp: rhonchi luis CVS: S1,S2,RRR GI: +BS, NT, no distention Skin: No rash Neuro: motor grossly intact Psych: appropriate affect Objective Data Active Medications Acetaminophen (Acetaminophen 325 Mg Tablet) 650 mg PO Q6H PRN PRN Reason: Pain, Mild (Pain Scale 1-3) Albuterol/Ipratropium (Albuterol/Iprat 2.5/0.5mg 3 Ml Ampul.Neb) 3 ml INHALE RQ4H PRN PRN Reason: Shortness of Breath/Wheezing Albuterol/Ipratropium (Albuterol/Iprat 2.5/0.5mg 3 Ml Ampul.Neb) 3 ml INHALE RQ6H [facility] Last Admin: 01/02/22 04:25 Dose: 3 ml Documented by: STEVEN Azelastine HCl (Azelastine Hcl Nasal 137 Mcg/[employer] [place] 30 Ml) 2 spray NOSTRIL-B BID [facility] Last Admin: 01/02/22 10:17 Dose: 2 spray Documented by: NADIA Bupropion HCl (Bupropion Hcl Xl 150 Mg Tab.Er.24h) 150 mg PO DAILY [facility] Last Admin: 01/02/22 08:22 Dose: 150 mg Documented by: NADIA Calcium Carbonate (Calcium Carbonate 500 Mg Tablet) 500 mg PO DAILY [facility] Last Admin: 01/02/22 08:22 Dose: 500 mg Documented by: NADIA Fluticasone/Vilanterol (Fluticasone/Vilanterol 200/25 Blst.W.Dev) 1 puff INHALE RDAILY [facility] Last Admin: 01/02/22 08:37 Dose: Not Given Documented by: MARGARET Non-Admin Reason: Med Not Available Guaifenesin/Dextromethorphan (Guaifenesin Dm 100/10/5 Ml 5 Ml Syrup) 10 ml PO Q6H [facility] Last Admin: 01/02/22 10:20 Dose: 10 ml Documented by: NADIA Hydromorphone HCl (Hydromorphone Hcl 1 Mg/Ml Syringe) 0.5 mg IVPUSH Q4H PRN; Protocol PRN Reason: Pain, Severe (Pain Scale 7-10) Last Admin: 01/02/22 10:20 Dose: 0.5 mg Documented by: NADIA Hydroxyzine HCl (Hydroxyzine Hcl 25 Mg Tablet) 25 mg PO Q8H PRN PRN Reason: itch Piperacillin Sod/Tazobactam (Sod 3.375 gm/ Sodium Chloride) 50 mls @ 100 mls/hr IV Q6H [facility] Last Admin: 01/02/22 08:25 Dose: 100 mls/hr Documented by: NADIA Vancomycin HCl 750 mg/ Sodium (Chloride) 265 mls @ 265 mls/hr IV Q12H [facility] Ipratropium [place] (Ipratropium [place] 0.5 Mg/2.5 Ml Solution) 0.5 mg INHALE RQID PRN PRN Reason: wheezing Ketotifen Fumarate (Ketotifen Fumarate 0.025% Oph 5 Ml Drpbtl) 1 drop EYE-BOTH BID PRN PRN Reason: itch Loratadine (Loratadine 10 Mg Tablet) 10 mg PO DAILY [facility] Last Admin: 01/02/22 08:22 Dose: 10 mg Documented by: NADIA Melatonin (Melatonin 3 Mg Tablet) 6 mg PO BEDTIME PRN PRN Reason: Insomnia Mepolizumab (Mepolizumab 100 Mg/Ml Auto.Injct) 100 mg SUBCUT Q28D [facility] Montelukast Sodium (Montelukast Sodium 10 Mg Tablet) 10 mg PO BEDTIME [facility] Omeprazole (Omeprazole 40 Mg Capsule.Dr) 40 mg PO DAILY@0630 [facility] Last Admin: 01/02/22 08:23 Dose: 40 mg Documented by: NADIA Pharmacy Consult (Consult Rx Vancomycin Dosing) 1 each MISCELLANE DAILY PRN PRN Reason: Consult order Prednisone (Prednisone 20 Mg Tablet) 20 mg PO BID [facility] Last Admin: 01/02/22 08:22 Dose: 20 mg Documented by: NADIA Senna (Sennosides 8.6 Mg Tablet) 17.2 mg PO BEDTIME PRN PRN Reason: Constipation Sodium Chloride (0.9 % Sodium Chloride Flush 3 Ml Syringe) 3 ml IVFLUSH QSHIFT [facility] Last Admin: 01/02/22 08:26 Dose: 3 ml Documented by: NADIA Tiotropium [place] (Tiotropium [place] 18 Mcg Cap.W.Dev) 1 puff INHALE RDAILY [facility] Last Admin: 01/02/22 08:37 Dose: Not Given Documented by: MARGARET Non-Admin Reason: Med Not Available Vitamin D (Cholecalciferol (Vitamin D3) 25 Mcg Tablet) 25 mcg PO DAILY [facility] Last Admin: 01/02/22 08:22 Dose: 25 mcg Documented by: NADIA Labs CBC & Chem 7: 01/02/22 06:40 01/02/22 06:40 Labs: Laboratory Results - last 24 hr 01/01/22 01/01/22 01/01/22 19:17 19:17 19:17 MCV 83.9 MCH 26.4 L MCHC 31.4 RDW 13.7 Plt Count 344 D MPV 10.4 Immature Gran % (Auto) 2.5 H Neut % (Auto) 87.6 H Lymph % (Auto) 5.8 L [place] % (Auto) 3.9 Eos % (Auto) 0.0 Baso % (Auto) 0.2 Lymph # (Auto) 1.0 L [place] # (Auto) 0.7 Eos # (Auto) 0.0 Baso # (Auto) 0.0 Abs Immat Gran (auto) 0.42 H Absolute Neuts (auto) 14.5 H Absolute Nucleated RBC 0.000 Nucleated RBC % (auto) 0.0 PT 11.3 INR 1.0 APTT 27.7 D-Dimer High Sensitivty 370 Anion Gap 11 L Estim Creat Clear Calc 73.6 Estimated GFR > 60 Random Glucose 156 H Lactic Acid Calcium 9.0 Total Bilirubin 0.2 AST 13 ALT 28 Alkaline Phosphatase 115 Troponin I High Sens Total Protein 6.5 Albumin 3.4 L Lipase 16 COVID-19 (NEIL) COVID-19 Clin Com 01/01/22 01/01/22 01/01/22 19:17 19:17 19:17 MCV MCH MCHC RDW Plt Count MPV Immature Gran % (Auto) Neut % (Auto) Lymph % (Auto) [place] % (Auto) Eos % (Auto) Baso % (Auto) Lymph # (Auto) [place] # (Auto) Eos # (Auto) Baso # (Auto) Abs Immat Gran (auto) Absolute Neuts (auto) Absolute Nucleated RBC Nucleated RBC % (auto) PT INR APTT D-Dimer High Sensitivty Anion Gap Estim Creat Clear Calc Estimated GFR Random Glucose Lactic Acid 1.7 Calcium Total Bilirubin AST ALT Alkaline Phosphatase Troponin I High Sens < 3.5 Total Protein Albumin Lipase COVID-19 (NEIL) Negative COVID-19 Clin Com See Note 01/02/22 01/02/22 06:40 06:40 MCV 84.6 MCH 27.1 MCHC 32.1 RDW 13.6 Plt Count 309 MPV 10.4 Immature Gran % (Auto) 3.4 H Neut % (Auto) 88.3 H Lymph % (Auto) 4.6 L [place] % (Auto) 3.5 Eos % (Auto) 0.0 Baso % (Auto) 0.2 Lymph # (Auto) 0.9 L [place] # (Auto) 0.7 Eos # (Auto) 0.0 Baso # (Auto) 0.0 Abs Immat Gran (auto) 0.64 H Absolute Neuts (auto) 16.5 H Absolute Nucleated RBC 0.000 Nucleated RBC % (auto) 0.0 PT INR APTT D-Dimer High Sensitivty Anion Gap 10 L Estim Creat Clear Calc 81.3 Estimated GFR > 60 Random Glucose 212 H Lactic Acid Calcium 8.6 Total Bilirubin AST ALT Alkaline Phosphatase Troponin I High Sens Total Protein Albumin Lipase COVID-19 (NEIL) COVID-19 Clin Com Assessment and Plan (1) Breast mass, right: Status: Acute (2) Pneumonia: Status: Acute (3) Asthma exacerbation: Status: Acute Plan 51-year-old female with a past medical history of asthma, recently discharged from the hospital after being treated for asthma/influenza on 12/27/2021; presented to the hospital today with a chief complaint of chest pain. Chest pain: Pleuritic in nature.? Atypical.? EKG nonischemic.? Troponin negative.? Pain control.? CT scan showed no evidence of pulmonary embolism. No further testing at this point Hcap: CT scan showed findings concerning for infection versus necrotic lucencies on the right upper lobe; also metastatic malignancy in the differential. Patient being covered with IV vancomycin Zosyn Pulmonology consult Right breast lesion: Oncology eval pending Recent history of asthma:? Patient respiratory status improving.? Continue prednisone taper.? DuoNebs p.r.n..? Continue home inhalers.? DVT prophylaxis:? Lovenox Code status:? Full code need for inpatient: has a pneumonia that is being treated with IV antibiotics and may need further testing to identify the nature of the pneumonia in the appropriate treatment. Quality Stroke Does the patient have a stroke diagnosis?: No VTE Prior VTE?: No VTE Risk Level:: Medical - moderate - high VTE Device Contraindication: Treatment Not Indicated VTE Drug Contraindication: N/A - Med Ordered
[2022-01-02] MEDS: vancomycin HCL 750 MG in 0.9 % Sodium Chloride 250 ML 265 MG IV (14:03)
--- NOTE | 2022-01-02 14:17 | PHA.PROG ---
Addendum entered by Bailey Whitley 01/04/22 11:48: Vancomycin addendum: Pt's trough came back low at 10.0 on 01/03/22 and at 9.6 on 01/04/22; increasing dose to 1250mg Q12H, predicted AUC 485 with next trough to be drawn 01/05/22 @1100. Renal function steady. Will continue to monitor. Original Note: Admission Date/Time: January 01, 2022 22:58 Indication: HCAP Weight in k.925 kg Adjusted body weight in K.25 Noonan body weight in K.8 Obesity Dosing Indication % IBW: 165 % Serum Creatinine - Last 168 Hours 01/01/22 01/02/22 19:17 06:40 Creatinine 0.84 0.76 Estimated CrCl and GFR - Last 168 Hours 01/01/22 01/02/22 19:17 06:40 Estim Creat Clear Calc 73.6 81.3 Estimated GFR > 60 > 60 Vancomycin Loading Dose: 1250 mg Current Vancomycin Dosing Regimen: 750 mg Q12H Date and Time for next Vancomycin Level to be drawn: 01/03 @ 1100 Pharmacist Comments on Vancomycin Plan: Patient requires obesity dosing since % IBW > 120 % First dose vancomycin 1250 mg was given in the ED 01/02 @ 0109 Maintenance dose vancomycin 750 mg Q12H schedule to begin 01/02 @ 1300. Expected AUC 484 with a trough of 15.2 Trough to be drawn prior to 4th dose Pharmacy will monitor renal function daily Evy Miller, Saul Vancomycin dosing will take advantage of [employer] as a clinical decision support tool that uses Bayesian modeling to calculate individual patient's pharmacokinetic parameters and forecast the patient's drug concentration time course with the target goal AUC 24 range of 400 - 600 mg/L/hr.
[2022-01-02] MEDS: Montelukast Sodium 10 MG TABLET PO (20:40)
[2022-01-03] VITALS (10 sets, daily range): BP systolic 121–176; BP diastolic 71–87; PULSE 62–70; RESP 16–20; TEMP 36.1–36.9; O2SAT 93–99
[2022-01-03] MEDS: 0.9 % Sodium Chloride Flush 3 ML SYRINGE IVFLUSH ×3 (01:43→16:10)
[2022-01-03] MEDS: HYDROmorphone HCl 1 MG/ML SYRINGE 0.5 MG IVPUSH ×3 (01:48→20:04)
[2022-01-03] MEDS: vancomycin HCL 750 MG in 0.9 % Sodium Chloride 250 ML 250 MG IV ×2 (02:36→13:05)
[2022-01-03] MEDS: guaiFENesin DM 100/10/5 ML 5 ML SYRUP 10 ML PO ×4 (04:43→23:10)
[2022-01-03] MEDS: Piperacillin Sodium/Tazobactam 3.375 GM in 0.9 % Sodium Chloride 50 ML IV ×4 (04:44→22:23)
[2022-01-03] MEDS: Albuterol/Iprat 2.5/0.5MG 3 ML AMPUL.NEB INHALE ×3 (06:12→19:00)
[2022-01-03] MEDS: Omeprazole 40 MG CAPSULE.DR PO (06:31)
[2022-01-03 07:18] LABS: Creatinine Clr Calc Pharmacy 90.4; Estimated Glomerular Filt Rate > 60
[2022-01-03] MEDS: Azelastine HCl Nasal 137 MCG/Spray 30 ML 2 SPRAY NOSTRIL-B ×2 (08:27→20:39)
[2022-01-03] MEDS: Cholecalciferol (Vitamin D3) 25 MCG TABLET PO (08:28)
[2022-01-03] MEDS: predniSONE 20 MG TABLET PO ×2 (08:28→20:39)
[2022-01-03] MEDS: Loratadine 10 MG TABLET PO (08:28)
[2022-01-03] MEDS: buPROPion HCl XL 150 MG TAB.ER.24H PO (08:28)
[2022-01-03 10:57] LABS: Hematocrit 38.1 % (37.0-47.0); Hemoglobin 11.8 g/dl (12.0-16.0); Mean Corpuscular Hemoglobin 26.2 pg (27.0-33.0); Mean Corpuscular Volume 84.5 fL (80.0-98.0); Platelet Count 375 X10*3/uL (160-400); Red Blood Count 4.51 X10*6/uL (4.20-5.50); Red Cell Distribution Width 13.9 % (11.0-16.0); White Blood Count 17.4 X10*3/uL (4.8-10.8)
--- NOTE | 2022-01-03 11:22 | HO.PM.IMPN ---
Subjective Subjective Date of Service: 01/03/22 Interval History: follow-up on chest pain, pneumonia, breast lesion. Interval history: persistent cough, no sob, no fever WBC remains very high Review of Systems no fever has some chest pain has cough Physical Exam Vital Signs: Vital Signs: Last Vital Signs Temp 98.4 F 01/03/22 07:36 Pulse 62 01/03/22 07:36 Resp 20 01/03/22 07:36 BP 176/78 H 01/03/22 07:36 Pulse Ox 97 01/03/22 07:36 BMI result Body Mass Index 32.5 Const: Other: General: AO X 3, no acute distress Resp: rhonchi luis CVS: S1,S2,RRR GI: +BS, NT, no distention Skin: No rash Neuro: motor grossly intact Psych: appropriate affect Objective Data Active Medications Acetaminophen (Acetaminophen 325 Mg Tablet) 650 mg PO Q6H PRN PRN Reason: Pain, Mild (Pain Scale 1-3) Albuterol/Ipratropium (Albuterol/Iprat 2.5/0.5mg 3 Ml Ampul.Neb) 3 ml INHALE RQ4H PRN PRN Reason: Shortness of Breath/Wheezing Albuterol/Ipratropium (Albuterol/Iprat 2.5/0.5mg 3 Ml Ampul.Neb) 3 ml INHALE RQ6H [facility] Last Admin: 01/03/22 06:12 Dose: 3 ml Documented by: REBECCA Azelastine HCl (Azelastine Hcl Nasal 137 Mcg/[place] 30 Ml) 2 spray NOSTRIL-B BID [facility] Last Admin: 01/03/22 08:27 Dose: 2 spray Documented by: SAMUEL Bupropion HCl (Bupropion Hcl Xl 150 Mg Tab.Er.24h) 150 mg PO DAILY [facility] Last Admin: 01/03/22 08:28 Dose: 150 mg Documented by: SAMUEL Calcium Carbonate (Calcium Carbonate 500 Mg Tablet) 500 mg PO DAILY [facility] Last Admin: 01/03/22 08:28 Dose: 500 mg Documented by: SAMUEL Fluticasone/Vilanterol (Fluticasone/Vilanterol 200/25 Blst.W.Dev) 1 puff INHALE RDAILY [facility] Last Admin: 01/03/22 07:51 Dose: Not Given Documented by: KENIA Non-Admin Reason: Med Not Available Guaifenesin/Dextromethorphan (Guaifenesin Dm 100/10/5 Ml 5 Ml Syrup) 10 ml PO Q6H [facility] Last Admin: 01/03/22 10:45 Dose: 10 ml Documented by: SAMUEL Hydromorphone HCl (Hydromorphone Hcl 1 Mg/Ml Syringe) 0.5 mg IVPUSH Q4H PRN; Protocol PRN Reason: Pain, Severe (Pain Scale 7-10) Last Admin: 01/03/22 08:30 Dose: 0.5 mg Documented by: SAMUEL Hydroxyzine HCl (Hydroxyzine Hcl 25 Mg Tablet) 25 mg PO Q8H PRN PRN Reason: itch Piperacillin Sod/Tazobactam (Sod 3.375 gm/ Sodium Chloride) 50 mls @ 100 mls/hr IV Q6H [facility] Last Infusion: 01/03/22 11:20 Dose: 0 mls/hr Documented by: SAMUEL Vancomycin HCl 750 mg/ Sodium (Chloride) 265 mls @ 265 mls/hr IV Q12H [facility] Last Infusion: 01/03/22 04:54 Dose: 0 mls/hr Documented by: TSIANNicanor Ipratropium [place] (Ipratropium [place] 0.5 Mg/2.5 Ml Solution) 0.5 mg INHALE RQID PRN PRN Reason: wheezing Ketotifen Fumarate (Ketotifen Fumarate 0.025% Oph 5 Ml Drpbtl) 1 drop EYE-BOTH BID PRN PRN Reason: itch Loratadine (Loratadine 10 Mg Tablet) 10 mg PO DAILY [facility] Last Admin: 01/03/22 08:28 Dose: 10 mg Documented by: SAMUEL Melatonin (Melatonin 3 Mg Tablet) 6 mg PO BEDTIME PRN PRN Reason: Insomnia Mepolizumab (Mepolizumab 100 Mg/Ml Auto.Injct) 100 mg SUBCUT Q28D [facility] Montelukast Sodium (Montelukast Sodium 10 Mg Tablet) 10 mg PO BEDTIME [facility] Last Admin: 01/02/22 20:40 Dose: 10 mg Documented by: MODESTA Omeprazole (Omeprazole 40 Mg Capsule.Dr) 40 mg PO DAILY@0630 [facility] Last Admin: 01/03/22 06:31 Dose: 40 mg Documented by: YOAN Pharmacy Consult (Consult Rx Vancomycin Dosing) 1 each MISCELLANE DAILY PRN PRN Reason: Consult order Prednisone (Prednisone 20 Mg Tablet) 20 mg PO BID [facility] Last Admin: 01/03/22 08:28 Dose: 20 mg Documented by: SAMUEL Senna (Sennosides 8.6 Mg Tablet) 17.2 mg PO BEDTIME PRN PRN Reason: Constipation Sodium Chloride (0.9 % Sodium Chloride Flush 3 Ml Syringe) 3 ml IVFLUSH QSHIFT [facility] Last Admin: 01/03/22 08:28 Dose: 3 ml Documented by: SAMUEL Tiotropium [place] (Tiotropium [place] 18 Mcg Cap.W.Dev) 1 puff INHALE RDAILY [facility] Last Admin: 01/03/22 07:51 Dose: Not Given Documented by: KENIA Non-Admin Reason: Med Not Available Vitamin D (Cholecalciferol (Vitamin D3) 25 Mcg Tablet) 25 mcg PO DAILY [facility] Last Admin: 01/03/22 08:28 Dose: 25 mcg Documented by: SAMUEL Labs CBC & Chem 7: 01/03/22 10:42 01/03/22 06:53 Labs: Laboratory Results - last 24 hr 01/03/22 01/03/22 01/03/22 06:53 10:42 10:42 MCV 84.5 MCH 26.2 L MCHC 31.0 RDW 13.9 Plt Count 375 MPV 10.0 Absolute Nucleated RBC 0.000 Nucleated RBC % (auto) 0.0 Estim Creat Clear Calc 90.4 Estimated GFR > 60 Vancomycin Trough 10.0 Microbiology Microbiology Results: Microbiology 01/01/22 19:30 Blood Culture - Preliminary Blood - Venous No growth after 24 hours. 01/01/22 19:17 Blood Culture - Preliminary Blood - Venous No growth after 24 hours. Assessment and Plan (1) Breast mass, right: Status: Acute (2) Pneumonia: Status: Acute (3) Asthma exacerbation: Status: Acute Plan 51-year-old female with a past medical history of asthma, recently discharged from the hospital after being treated for asthma/influenza on 12/27/2021; presented to the hospital today with a chief complaint of chest pain. Chest pain: Pleuritic in nature.? Atypical.? EKG nonischemic.? Troponin negative.? Pain control.? CT scan showed no evidence of pulmonary embolism. No further testing at this point Pneumonia-- CT scan showed findings concerning for infection versus necrotic lucencies on the right upper lobe; also metastatic malignancy in the differential. Continue IV vancomycin Zosyn for now, will need repeat imaging on outpatient basis Right breast lesion: Oncology is recommending further work up on outpatient basis with momogram, US Recent history of asthma:? Patient respiratory status improving.? Continue prednisone taper.? DuoNebs p.r.n..? Continue home inhalers.? DVT prophylaxis:? Lovenox Code status:? Full code need for inpatient: has a pneumonia that is being treated with IV antibiotics and response being slow, will continue IV Abx for at least one more day and monitor response and possible discharge later today Quality Stroke Does the patient have a stroke diagnosis?: No VTE Prior VTE?: No VTE Risk Level:: Medical - moderate - high VTE Device Contraindication: Treatment Not Indicated VTE Drug Contraindication: N/A - Med Ordered
--- NOTE | 2022-01-03 13:57 | MHC.CM.PN ---
Female 51 DX Chest pain She lives with family. She is independent all functional mobility. DP home no services family transport.
[2022-01-03] MEDS: ondansetron HCL 4 MG/2 ML VIAL IVPUSH (20:04)
[2022-01-03] MEDS: Montelukast Sodium 10 MG TABLET PO (20:39)
--- NOTE | 2022-01-03 22:59 | P.CNID_ITS ---
History of Present Illness Data of Consult Service Date: 01/03/22 Requesting physician: Waqar Zuniga Primary Care Provider: Gt Prescott III, MD HPI Reason for consult: shortness of breath sHe presents with shortness of breath for seven days. She has no fever or chills. She has leukocytosis. Review of Systems Review of Systems: Yes all other systems are reviewed and are negative PMFSH Past Medical History Medical History Asthma Functional capacity: independent ambulation Family History Family history: reviewed and not pertinent Social History Social History Household Members: Family Caregiver staying overnight: No Housing: House Do you presently have visiting nurse or other home services: Yes Alcohol intake: never Patient Tobacco Use Status: Never used Tobacco Advance Directives Date on File: 12/26/21 service: No Current occupational status: disabled Meds Allergies Allergy/AdvReac Type Severity Reaction Status Date / Time latex [Latex] Allergy Mild UNKNOWN Verified 12/26/21 09:51 cats, pollen, mold Allergy Unknown Unknown Uncoded 12/26/21 09:51 Latex Allergy Unknown Unknown Uncoded 12/26/21 09:51 Active Medications: Current Medications Acetaminophen (Acetaminophen 325 Mg Tablet) 650 mg PO Q6H PRN PRN Reason: Pain, Mild (Pain Scale 1-3) Albuterol/Ipratropium (Albuterol/Iprat 2.5/0.5mg 3 Ml Ampul.Neb) 3 ml INHALE RQ4H PRN PRN Reason: Shortness of Breath/Wheezing Albuterol/Ipratropium (Albuterol/Iprat 2.5/0.5mg 3 Ml Ampul.Neb) 3 ml INHALE RQ6H [facility] Last Admin: 01/03/22 19:00 Dose: 3 ml Documented by: Azelastine HCl (Azelastine Hcl Nasal 137 Mcg/[place] 30 Ml) 2 spray NOSTRIL-B BID [facility] Last Admin: 01/03/22 20:39 Dose: 2 spray Documented by: Bupropion HCl (Bupropion Hcl Xl 150 Mg Tab.Er.24h) 150 mg PO DAILY [facility] Last Admin: 01/03/22 08:28 Dose: 150 mg Documented by: Calcium Carbonate (Calcium Carbonate 500 Mg Tablet) 500 mg PO DAILY [facility] Last Admin: 01/03/22 08:28 Dose: 500 mg Documented by: Fluticasone/Vilanterol (Fluticasone/Vilanterol 200/25 Blst.W.Dev) 1 puff INHALE RDAILY [facility] Last Admin: 01/03/22 07:51 Dose: Not Given Documented by: Guaifenesin/Dextromethorphan (Guaifenesin Dm 100/10/5 Ml 5 Ml Syrup) 10 ml PO Q6H [facility] Last Admin: 01/03/22 18:54 Dose: 10 ml Documented by: Hydromorphone HCl (Hydromorphone Hcl 1 Mg/Ml Syringe) 0.5 mg IVPUSH Q4H PRN; Protocol PRN Reason: Pain, Severe (Pain Scale 7-10) Last Admin: 01/03/22 20:04 Dose: 0.5 mg Documented by: Hydroxyzine HCl (Hydroxyzine Hcl 25 Mg Tablet) 25 mg PO Q8H PRN PRN Reason: itch Piperacillin Sod/Tazobactam (Sod 3.375 gm/ Sodium Chloride) 50 mls @ 100 mls/hr IV Q6H [facility] Last Admin: 01/03/22 22:23 Dose: 100 mls/hr Documented by: Vancomycin HCl 750 mg/ Sodium (Chloride) 265 mls @ 265 mls/hr IV Q12H [facility] Last Infusion: 01/03/22 14:56 Dose: Infused Documented by: Ipratropium [place] (Ipratropium [place] 0.5 Mg/2.5 Ml Solution) 0.5 mg INHALE RQID PRN PRN Reason: wheezing Ketotifen Fumarate (Ketotifen Fumarate 0.025% Oph 5 Ml Drpbtl) 1 drop EYE-BOTH BID PRN PRN Reason: itch Loratadine (Loratadine 10 Mg Tablet) 10 mg PO DAILY [facility] Last Admin: 01/03/22 08:28 Dose: 10 mg Documented by: Melatonin (Melatonin 3 Mg Tablet) 6 mg PO BEDTIME PRN PRN Reason: Insomnia Mepolizumab (Mepolizumab 100 Mg/Ml Auto.Injct) 100 mg SUBCUT Q28D [facility] Montelukast Sodium (Montelukast Sodium 10 Mg Tablet) 10 mg PO BEDTIME [facility] Last Admin: 01/03/22 20:39 Dose: 10 mg Documented by: Omeprazole (Omeprazole 40 Mg Capsule.Dr) 40 mg PO DAILY@0630 [facility] Last Admin: 01/03/22 06:31 Dose: 40 mg Documented by: Ondansetron HCl (Ondansetron Hcl 4 Mg/2 Ml Vial) 4 mg IVPUSH Q8H PRN PRN Reason: Nausea and Vomiting Last Admin: 01/03/22 20:04 Dose: 4 mg Documented by: Pharmacy Consult (Consult Rx Vancomycin Dosing) 1 each MISCELLANE DAILY PRN PRN Reason: Consult order Prednisone (Prednisone 20 Mg Tablet) 20 mg PO BID [facility] Last Admin: 01/03/22 20:39 Dose: 20 mg Documented by: Senna (Sennosides 8.6 Mg Tablet) 17.2 mg PO BEDTIME PRN PRN Reason: Constipation Sodium Chloride (0.9 % Sodium Chloride Flush 3 Ml Syringe) 3 ml IVFLUSH QSHIFT [facility] Last Admin: 01/03/22 16:10 Dose: 3 ml Documented by: Tiotropium [place] (Tiotropium [place] 18 Mcg Cap.W.Dev) 1 puff INHALE RDAILY [facility] Last Admin: 01/03/22 07:51 Dose: Not Given Documented by: Vitamin D (Cholecalciferol (Vitamin D3) 25 Mcg Tablet) 25 mcg PO DAILY [facility] Last Admin: 01/03/22 08:28 Dose: 25 mcg Documented by: Home Medications Medication Instructions Recorded Confirmed Last Taken Type azelastine 137 mcg (0.1 %) nasal 2 spray INTRANASAL BID 12/26/21 01/01/22 01/01/22 History spray aerosol bupropion HCl 150 mg 24 hr tablet, 1 tab PO DAILY 12/26/21 01/01/22 01/01/22 History extended release calcium citrate 200 mg (950 mg) 1 tab PO DAILY 12/26/21 01/01/22 12/26/21 History tablet cholecalciferol (vitamin D3) 25 1 tab PO DAILY 12/26/21 01/01/22 01/01/22 History mcg (1,000 unit) tablet fluticasone propionate 230 1 puff INHALATION BID 12/26/21 01/01/22 01/01/22 History mcg-salmeterol 21 mcg/actuation HFA inhaler (Advair HFA) hydroxyzine HCl 25 mg tablet 1 tab PO Q8H PRN 12/26/21 01/01/22 Unknown History ibuprofen 600 mg tablet 1 tab PO Q8H PRN 12/26/21 01/01/22 01/01/22 History ipratropium bromide 0.02 % 2.5 ml INHALATION QID PRN 12/26/21 01/01/22 Unknown History solution for inhalation ketotifen fumarate 0.025 % (0.035 1 drp OPHTHALMIC (EYE) BID PRN 12/26/21 01/01/22 Unknown History %) eye drops loratadine 10 mg tablet 1 tab PO DAILY 12/26/21 01/01/22 01/01/22 History mepolizumab 100 mg/mL subcutaneous 100 mg SUBCUT Q4W 12/26/21 01/01/22 12/04/21 History auto-injector (Nucala) montelukast 10 mg tablet 1 tab PO BEDTIME 12/26/21 01/01/22 12/25/21 History omeprazole 40 mg capsule,delayed 1 cap PO DAILY@0630 12/26/21 01/01/22 01/01/22 History release tiotropium bromide 1.25 2 puff PO DAILY 12/26/21 01/01/22 01/01/22 History mcg/actuation mist for inhalation (Spiriva Respimat) ipratropium 20 mcg-albuterol 100 1 puff INHALATION QID 01/01/22 01/01/22 History mcg/actuation mist for inhalation (Combivent Respimat) oxycodone 5 mg tablet 1 - 2 tab PO Q4-6H PRN 01/01/22 01/01/22 01/01/22 History Physical Exam Vital Signs: Vital Signs: Last Vital Signs Temp 98.2 F 01/03/22 19:13 Pulse 68 01/03/22 19:13 Resp 18 01/03/22 19:13 BP 158/87 H 01/03/22 19:13 Pulse Ox 98 01/03/22 19:13 BMI result Body Mass Index 32.5 Const: General: cooperative Chest: Chest palpation & inspection: normal inspection of the chest Resp: Auscultation: diminished lung sounds Cardio: Rate: regular rate Rhythm: regular rhythm GI: Palpation (GI): Soft to palpation and nontender Skin: General skin exam: no rashes or lesions noted Results Labs CBC & Chem 7: 01/03/22 10:42 01/03/22 06:53 Labs: Short CBC 01/03/22 Range/Units 10:42 WBC 17.4 H (4.8-10.8) X10*3/uL Hgb 11.8 L (12.0-16.0) g/dl Hct 38.1 (37.0-47.0) % Plt Count 375 (160-400) X10*3/uL BMP 01/03/22 06:53 Creatinine 0.68 Microbiology Microbiology Results: Microbiology 01/01/22 19:30 Blood - Venous Blood Culture - Preliminary No growth after 48 hours. 01/01/22 19:17 Blood - Venous Blood Culture - Preliminary No growth after 48 hours. 01/03/22 06:10 Sputum - Expectorated Gram Stain - Final Assessment and Plan (1) Pneumonia: Qualifiers: Laterality: bilateral Pneumonia type: due to unspecified organism Status: Acute She has possible aspiration/gram negative/gram positive Plan Continue medications. Would switch to po Doxycycline next day or two for 10 days total. Workup breast mass outpatient.
[2022-01-04] VITALS (9 sets, daily range): BP systolic 121–169; BP diastolic 65–84; PULSE 54–68; RESP 16–20; TEMP 36.2–36.9; O2SAT 98–100
[2022-01-04] MEDS: 0.9 % Sodium Chloride Flush 3 ML SYRINGE IVFLUSH ×3 (00:36→16:46)
[2022-01-04] MEDS: vancomycin HCL 750 MG in 0.9 % Sodium Chloride 250 ML 250 MG IV (00:37)
[2022-01-04] MEDS: guaiFENesin DM 100/10/5 ML 5 ML SYRUP 10 ML PO ×4 (05:16→22:24)
[2022-01-04] MEDS: Piperacillin Sodium/Tazobactam 3.375 GM in 0.9 % Sodium Chloride 50 ML IV ×4 (05:17→22:25)
[2022-01-04] MEDS: Albuterol/Iprat 2.5/0.5MG 3 ML AMPUL.NEB INHALE ×4 (05:18→23:13)
[2022-01-04] MEDS: Omeprazole 40 MG CAPSULE.DR PO (05:51)
[2022-01-04] MEDS: HYDROmorphone HCl 1 MG/ML SYRINGE 0.5 MG IVPUSH (05:52)
[2022-01-04 07:28] LABS: Creatinine Clr Calc Pharmacy 90.4; Estimated Glomerular Filt Rate > 60
[2022-01-04] MEDS: Fluticasone/Vilanterol 200/25 BLST.W.DEV 1 PUFF INHALE (08:26)
[2022-01-04] MEDS: Azelastine HCl Nasal 137 MCG/Spray 30 ML 2 SPRAY NOSTRIL-B ×2 (08:45→22:24)
[2022-01-04] MEDS: buPROPion HCl XL 150 MG TAB.ER.24H PO (08:45)
[2022-01-04] MEDS: Cholecalciferol (Vitamin D3) 25 MCG TABLET PO (08:45)
[2022-01-04] MEDS: Loratadine 10 MG TABLET PO (08:45)
[2022-01-04] MEDS: predniSONE 20 MG TABLET PO ×2 (08:45→22:25)
--- NOTE | 2022-01-04 11:02 | P.PNPL_ITS ---
Subjective Subjective Date of Service: 01/04/22 Principal diagnosis: PNEUMONIA Interval history: This 51 years old female admitted with multifocal pneumonia mostly in the right lung, as multiple rounded opacities with central lucencies, Being treated with the broad-spectrum antibiotics ,oral steroids , DuoNeb updrafts , and her usual bronchodilator her inhalers, Is clinically improved. She has no fever or chills, chest discomfort is minimal. Objective Data Labs CBC & Chem 7: 01/03/22 10:42 01/04/22 06:21 Labs: Laboratory Results - last 24 hr 01/03/22 01/04/22 10:42 06:21 Creatinine 0.68 Estim Creat Clear Calc 90.4 Estimated GFR > 60 Vancomycin Trough 10.0 Microbiology Microbiology Results: Microbiology 01/03/22 06:10 Sputum - Expectorated Gram Stain - Final 01/03/22 06:10 Sputum - Expectorated Sputum Culture - Preliminary Culture in progress. 01/01/22 19:30 Blood - Venous Blood Culture - Preliminary No growth after 48 hours. 01/01/22 19:17 Blood - Venous Blood Culture - Preliminary No growth after 48 hours. Review of Systems Review of Systems Yes all other systems are reviewed and are negative Physical Exam Vital Signs: Vital Signs: Last Vital Signs Temp 97.9 F 01/04/22 08:00 Pulse 54 01/04/22 08:30 Resp 20 01/04/22 08:30 BP 145/76 H 01/04/22 08:00 Pulse Ox 98 01/04/22 08:00 BMI result Body Mass Index 32.5 Resp: Other: Percussion note resonant, breath sounds are equal on both sides, Only a few inspiratory crackles heard over the right mid chest today, definitely improved as compared to yesterday. Procedures Date of Service Date of Service: 01/04/22 Assessment and Plan Assessment and plan (1) Pneumonia: Status: Acute (2) Asthma exacerbation: Status: Acute (3) Pleuritic chest pain: Status: Acute Assessment and Plan: This patient is definitely improving with the current treatment. Recc . May change antibiotics to combination of Zosyn IV, DC vancomycin, and add doxycycline 100 mg b.i.d.. Reduce prednisone to 20 mg a day for 3 days , then 10 mg a day for 3 day, then 5 mg a day for 3 days and then stop. Patient may continue her regular pulmonary treatment at home. For the question of right breast mass, she would need workup as outpatient as outlined by Dr. Oliva . As outpatient patient follows with Dr. Pavon at [facility] for her pulmonary for follow-up. Time Spent With Patient Time: Total time spent is greater than 50% in coordination of care (as documented) at patient's floor/unit and/or counseling patient: Progress Note: Quality Stroke Does the patient have a stroke diagnosis?: No
[2022-01-04 11:34] LABS: Vancomycin Random 9.6 mcg/mL (15-20)
[2022-01-04] MEDS: Sennosides 8.6 MG TABLET 17.2 MG PO (11:48)
--- NOTE | 2022-01-04 12:02 | P.DS_ITS ---
DS: Providers Provider Date of Service: 01/07/22 Date of admission: 01/01/22 22:58 Primary care physician: Gt Prescott III, MD Consults: 01/01/22 23:00 Consult to Infectious Diseases Routine Consulting Provider: Brittney Cameron Reason for consultation: Hcap/pulmonary necrosis on CT Consult to Pulmonology Routine Consulting Provider: Khadar Parker Reason for consultation: Abnormal CT chest; pulmonary necroses 01/01/22 23:13 Consult to Hematology / Oncology Routine Consulting Provider: Dennis Oliva Reason for consultation: Right breast lesion; necrotic lung lesions DS: Diagnosis Discharge Diagnosis (1) Pneumonia: Status: Acute (2) Asthma exacerbation: Status: Resolved (3) Pleuritic chest pain: Status: Resolved DS: Summary Hospital Course Hospital Course: Date of Service: 01/01/22 Chief Complaint: Chest pain 51-year-old female with a past medical history of asthma, recently discharged f rom the hospital after being treated for asthma/influenza on 12/27/2021; presented to the hospital today with a chief complaint of chest pain.? Patient reported over the past few days she has been having cough with yellowish to brown sputum production.? Denies any fevers.? Mentioned that she has been continually take her prednisone taper; mentions her shortness of breath has been improving Reports for the past couple days she noted to have right-sided chest pain; worsens with deep inspiration; denies any associated lightheadedness dizziness or diaphoresis.? Pain is constant and sharp in nature.? Denies any GI symptoms.? Patient denies any weight loss or change in appetite. Review of all other systems is negative except mentioned above ER course: Per ER team patient noted to have right lateral chest wall pain; pleuritic in nature; EKG nonischemic; troponin negative; chest and x-ray showed right upper lobe infiltrate concerning for pneumonia; also noted to have follow focus on the left midlung; concerning for Hcap-started on antibiotics; CT chest was done which showed no evidence of pulmonary embolism but noted right upper lobe findings concerning for necrosis; malignancy cannot be ruled out.? Admitted to the hospital for further management.? Hospital course: Patient was admitted again for pneumonia was recently discharged from the hospital. Was treated for healthcare associated pneumonia with vancomycin and Zosyn, sputum culture showed Staph Aurues (MSSA), ID was consulted and is recommended to finish course of 10 days of Doxyline. She was seen by Pulmonology and thought the Chest CT findings maybe secondary to septic embolic, blood cultures have been negative. Echo show no vegetations. As for Breast lesion she was seen by Dr. Oliva and will be seen in the office and arrangement made for mamogram. She will need to follow up with Pulmonology for repeat CT of chest Time Spent with Patient Time attestation: Total time spent providing and/or coordinating discharge services: Discharge coordination time: Greater than 30 minutes Quality: Safe Use of Opioids Does Pt have an Active Cancer Diagnosis on the Problem List?: No Quality: Stroke Does the patient have a stroke diagnosis?: No Physical Exam Vital Signs: Vital Signs: Last Vital Signs Temp 98.1 F 01/04/22 11:12 Pulse 60 01/04/22 11:12 Resp 16 01/04/22 11:12 BP 143/84 H 01/04/22 11:12 Pulse Ox 98 01/04/22 11:12 BMI result Body Mass Index 32.5 DS: Data Data Completed and Pending Labs on day of discharge: Laboratory Results - last 24 hr 01/04/22 01/04/22 06:21 11:03 Creatinine 0.68 Estim Creat Clear Calc 90.4 Estimated GFR > 60 Random Vancomycin 9.6 L Preliminary micro results at discharge 01/03/22 06:10 Sputum Culture - Preliminary Sputum - Expectorated Culture in progress. 01/01/22 19:30 Blood Culture - Preliminary Blood - Venous No growth after 48 hours. 01/01/22 19:17 Blood Culture - Preliminary Blood - Venous No growth after 48 hours. Discharge Plan Discharge Anticipated Discharge Date/Time: 01/07/22 09:22 Patient Disposition: Home, Self-Care Discharge Diagnosis: Asthma exacerbation, pneumonia, breast mask Referrals: Gt Prescott III, MD [Primary Care Provider] - 1 Week Monster Baig MD [Physician] - 2 Weeks (Call them to confirm appointment date) Discharge Medications: Continued Combivent Respimat 20-100 mcg/actuation mist 1 puff inhalation QID ketotifen fumarate 0.025 % (0.035 %) drops 1 drp ophthalmic (eye) BID PRN (Reason: itch) omeprazole 40 mg capsule,delayed release(DR/EC) 1 cap PO DAILY@0630 montelukast 10 mg tablet 1 tab PO BEDTIME hydroxyzine HCl 25 mg tablet 1 tab PO Q8H PRN (Reason: itch) azelastine 137 mcg (0.1 %) aerosol,spray 2 spray intranasal BID ibuprofen 600 mg tablet 1 tab PO Q8H PRN (Reason: pain) loratadine 10 mg tablet 1 tab PO DAILY ipratropium bromide 0.02 % solution 2.5 ml inhalation QID PRN (Reason: wheezing) calcium citrate 200 mg (950 mg) tablet 1 tab PO DAILY Advair HFA 230-21 mcg/actuation HFA aerosol inhaler 1 puff inhalation BID cholecalciferol (vitamin D3) 25 mcg (1,000 unit) tablet 1 tab PO DAILY Spiriva Respimat 1.25 mcg/actuation mist 2 puff PO DAILY Nucala 100 mg/mL auto-injector 100 mg subcut Q4W Discharge Orders: Discharge Order (Routine); Ordered 01/07/22 Ordered By: Waqar Zuniga Activity on Discharge: As tolerated Stand Alone Forms: Patient Portal Discharge page Care Plan Goals: full recovery from pneumonia, and asthma Health Concerns: breast mass, pneumonia, asthma Plan of Treatment: Take Doxycline as recommended, use prednisone as recommended, continue using inhalers, follow up with with Dr. Oliva to get mamogram done Assessment: As above Discharge Date/Time: 01/07/22 11:12
--- NOTE | 2022-01-04 12:07 | HO.PM.IMPN ---
Subjective Subjective Date of Service: 01/04/22 Interval History: follow-up on chest pain, pneumonia, breast lesion. Interval history: persistent cough, no sob, no sob, normal pulse ox Review of Systems no fever has some chest pain has cough Physical Exam Vital Signs: Vital Signs: Last Vital Signs Temp 98.1 F 01/04/22 11:12 Pulse 60 01/04/22 11:12 Resp 16 01/04/22 11:12 BP 143/84 H 01/04/22 11:12 Pulse Ox 98 01/04/22 11:12 BMI result Body Mass Index 32.5 Const: Other: General: AO X 3, no acute distress Resp: rhonchi luis CVS: S1,S2,RRR GI: +BS, NT, no distention Skin: No rash Neuro: motor grossly intact Psych: appropriate affect Objective Data Active Medications Acetaminophen (Acetaminophen 325 Mg Tablet) 650 mg PO Q6H PRN PRN Reason: Pain, Mild (Pain Scale 1-3) Albuterol/Ipratropium (Albuterol/Iprat 2.5/0.5mg 3 Ml Ampul.Neb) 3 ml INHALE RQ4H PRN PRN Reason: Shortness of Breath/Wheezing Albuterol/Ipratropium (Albuterol/Iprat 2.5/0.5mg 3 Ml Ampul.Neb) 3 ml INHALE RQ6H [facility] Last Admin: 01/04/22 08:27 Dose: 3 ml Documented by: MARY ANN Azelastine HCl (Azelastine Hcl Nasal 137 Mcg/[place] 30 Ml) 2 spray NOSTRIL-B BID [facility] Last Admin: 01/04/22 08:45 Dose: 2 spray Documented by: MICHELLE Bupropion HCl (Bupropion Hcl Xl 150 Mg Tab.Er.24h) 150 mg PO DAILY [facility] Last Admin: 01/04/22 08:45 Dose: 150 mg Documented by: MICHELLE Calcium Carbonate (Calcium Carbonate 500 Mg Tablet) 500 mg PO DAILY [facility] Last Admin: 01/04/22 08:45 Dose: 500 mg Documented by: MICHELLE Fluticasone/Vilanterol (Fluticasone/Vilanterol 200/25 Blst.W.Dev) 1 puff INHALE RDAILY [facility] Last Admin: 01/04/22 08:26 Dose: 1 puff Documented by: MARY ANN Guaifenesin/Dextromethorphan (Guaifenesin Dm 100/10/5 Ml 5 Ml Syrup) 10 ml PO Q6H [facility] Last Admin: 01/04/22 05:16 Dose: 10 ml Documented by: GABRIELA Hydromorphone HCl (Hydromorphone Hcl 1 Mg/Ml Syringe) 0.5 mg IVPUSH Q4H PRN; Protocol PRN Reason: Pain, Severe (Pain Scale 7-10) Last Admin: 01/04/22 05:52 Dose: 0.5 mg Documented by: GABRIELA Hydroxyzine HCl (Hydroxyzine Hcl 25 Mg Tablet) 25 mg PO Q8H PRN PRN Reason: itch Piperacillin Sod/Tazobactam (Sod 3.375 gm/ Sodium Chloride) 50 mls @ 100 mls/hr IV Q6H [facility] Last Admin: 01/04/22 11:45 Dose: 100 mls/hr Documented by: MICHELLE Vancomycin HCl 1,250 mg/ (Sodium Chloride) 250 mls @ 166.667 mls/hr IV Q12H [facility] Ipratropium [place] (Ipratropium [place] 0.5 Mg/2.5 Ml Solution) 0.5 mg INHALE RQID PRN PRN Reason: wheezing Ketotifen Fumarate (Ketotifen Fumarate 0.025% Oph 5 Ml Drpbtl) 1 drop EYE-BOTH BID PRN PRN Reason: itch Loratadine (Loratadine 10 Mg Tablet) 10 mg PO DAILY [facility] Last Admin: 01/04/22 08:45 Dose: 10 mg Documented by: MICHELLE Melatonin (Melatonin 3 Mg Tablet) 6 mg PO BEDTIME PRN PRN Reason: Insomnia Mepolizumab (Mepolizumab 100 Mg/Ml Auto.Injct) 100 mg SUBCUT Q28D [facility] Montelukast Sodium (Montelukast Sodium 10 Mg Tablet) 10 mg PO BEDTIME [facility] Last Admin: 01/03/22 20:39 Dose: 10 mg Documented by: MODESTA Omeprazole (Omeprazole 40 Mg Capsule.Dr) 40 mg PO DAILY@0630 [facility] Last Admin: 01/04/22 05:51 Dose: 40 mg Documented by: GABRIELA Ondansetron HCl (Ondansetron Hcl 4 Mg/2 Ml Vial) 4 mg IVPUSH Q8H PRN PRN Reason: Nausea and Vomiting Last Admin: 01/03/22 20:04 Dose: 4 mg Documented by: MODESTA Pharmacy Consult (Consult Rx Vancomycin Dosing) 1 each MISCELLANE DAILY PRN PRN Reason: Consult order Prednisone (Prednisone 20 Mg Tablet) 20 mg PO BID [facility] Last Admin: 01/04/22 08:45 Dose: 20 mg Documented by: MICHELLE Senna (Sennosides 8.6 Mg Tablet) 17.2 mg PO BEDTIME PRN PRN Reason: Constipation Last Admin: 01/04/22 11:48 Dose: 17.2 mg Documented by: MICHELLE Sodium Chloride (0.9 % Sodium Chloride Flush 3 Ml Syringe) 3 ml IVFLUSH QSHIFT [facility] Last Admin: 01/04/22 11:46 Dose: 3 ml Documented by: MICHELLE Tiotropium [place] (Tiotropium [place] 18 Mcg Cap.W.Dev) 1 puff INHALE RDAILY [facility] Last Admin: 01/04/22 08:26 Dose: 1 puff Documented by: MARY ANN Vitamin D (Cholecalciferol (Vitamin D3) 25 Mcg Tablet) 25 mcg PO DAILY [facility] Last Admin: 01/04/22 08:45 Dose: 25 mcg Documented by: MICHELLE Labs CBC & Chem 7: 01/03/22 10:42 01/04/22 06:21 Labs: Laboratory Results - last 24 hr 01/04/22 01/04/22 06:21 11:03 Estim Creat Clear Calc 90.4 Estimated GFR > 60 Random Vancomycin 9.6 L Microbiology Microbiology Results: Microbiology 01/03/22 06:10 Gram Stain - Final Sputum - Expectorated Sputum Culture - Preliminary Culture in progress. 01/01/22 19:30 Blood Culture - Preliminary Blood - Venous No growth after 48 hours. 01/01/22 19:17 Blood Culture - Preliminary Blood - Venous No growth after 48 hours. Assessment and Plan (1) Breast mass, right: Status: Acute (2) Pneumonia: Status: Acute (3) Asthma exacerbation: Status: Acute Plan 51-year-old female with a past medical history of asthma, recently discharged from the hospital after being treated for asthma/influenza on 12/27/2021; presented to the hospital today with a chief complaint of chest pain. Chest pain: Pleuritic in nature.? Atypical.? EKG nonischemic.? Troponin negative.? Pain control.? CT scan showed no evidence of pulmonary embolism. No further testing at this point Pneumonia-- CT scan showed findings concerning for infection versus necrotic lucencies on the right upper lobe; also metastatic malignancy in the differential. Continue IV vancomycin, add Doxy and DC Vanco Right breast lesion: Oncology is recommending further work up on outpatient basis with [facility] [place] Recent history of asthma:? Patient respiratory status improving.? Continue prednisone taper.? DuoNebs p.r.n..? Continue home inhalers.? DVT prophylaxis:? Lovenox Code status:? Full code need for inpatient: has a pneumonia that is being treated with IV antibiotics and response being slow, will continue IV Abx for at least one more day and monitor response and possible discharge later today Quality Stroke Does the patient have a stroke diagnosis?: No VTE Prior VTE?: No VTE Risk Level:: Medical - moderate - high VTE Device Contraindication: Treatment Not Indicated VTE Drug Contraindication: N/A - Med Ordered
--- NOTE | 2022-01-04 13:24 | MHC.CM.PN ---
pt dcd home no skilled sercvies ordered by
[2022-01-04] MEDS: Montelukast Sodium 10 MG TABLET PO (22:25)
[2022-01-05] VITALS (9 sets, daily range): BP systolic 112–165; BP diastolic 57–91; PULSE 58–75; RESP 14–18; TEMP 36.1–36.8; O2SAT 96–100
[2022-01-05] MEDS: 0.9 % Sodium Chloride Flush 3 ML SYRINGE IVFLUSH ×4 (00:07→22:04)
[2022-01-05] MEDS: HYDROmorphone HCl 1 MG/ML SYRINGE 0.5 MG IVPUSH ×2 (04:15→13:56)
[2022-01-05] MEDS: Piperacillin Sodium/Tazobactam 3.375 GM in 0.9 % Sodium Chloride 50 ML IV ×4 (04:16→22:04)
[2022-01-05] MEDS: guaiFENesin DM 100/10/5 ML 5 ML SYRUP 10 ML PO ×4 (04:58→23:34)
[2022-01-05] MEDS: Omeprazole 40 MG CAPSULE.DR PO (04:58)
[2022-01-05 07:37] LABS: Creatinine Clr Calc Pharmacy 81.9; Estimated Glomerular Filt Rate > 60
[2022-01-05] MEDS: Fluticasone/Vilanterol 200/25 BLST.W.DEV 1 PUFF INHALE (08:26)
[2022-01-05] MEDS: predniSONE 20 MG TABLET PO ×2 (09:32→22:03)
[2022-01-05] MEDS: Cholecalciferol (Vitamin D3) 25 MCG TABLET PO (09:32)
[2022-01-05] MEDS: Loratadine 10 MG TABLET PO (09:32)
[2022-01-05] MEDS: buPROPion HCl XL 150 MG TAB.ER.24H PO (09:32)
--- NOTE | 2022-01-05 10:39 | P.PNIM_ITS ---
Subjective Subjective Date of Service: 01/05/22 Interval History: follow-up on chest pain, pneumonia, breast lesion. Interval history: persistent cough, no sob, no sob, normal pulse ox Review of Systems no fever has some chest pain has cough Physical Exam Vital Signs: Vital Signs: Last Vital Signs Temp 97.9 F 01/05/22 08:00 Pulse 60 01/05/22 08:28 Resp 16 01/05/22 08:28 BP 147/87 H 01/05/22 08:00 Pulse Ox 97 01/05/22 08:00 BMI result Body Mass Index 32.5 Const: Other: General: AO X 3, no acute distress Resp: rhonchi luis CVS: S1,S2,RRR GI: +BS, NT, no distention Skin: No rash Neuro: motor grossly intact Psych: appropriate affect Objective Data Active Medications Acetaminophen (Acetaminophen 325 Mg Tablet) 650 mg PO Q6H PRN PRN Reason: Pain, Mild (Pain Scale 1-3) Albuterol/Ipratropium (Albuterol/Iprat 2.5/0.5mg 3 Ml Ampul.Neb) 3 ml INHALE RQ4H PRN PRN Reason: Shortness of Breath/Wheezing Albuterol/Ipratropium (Albuterol/Iprat 2.5/0.5mg 3 Ml Ampul.Neb) 3 ml INHALE RQ6H [facility] Last Admin: 01/05/22 05:50 Dose: Not Given Documented by: STEVEN Non-Admin Reason: See Note Azelastine HCl (Azelastine Hcl Nasal 137 Mcg/[place] 30 Ml) 2 spray NOSTRIL-B BID [facility] Last Admin: 01/05/22 09:39 Dose: Not Given Documented by: KEEGAN Non-Admin Reason: Previously Administered Bupropion HCl (Bupropion Hcl Xl 150 Mg Tab.Er.24h) 150 mg PO DAILY [facility] Last Admin: 01/05/22 09:32 Dose: 150 mg Documented by: KEEGAN Calcium Carbonate (Calcium Carbonate 500 Mg Tablet) 500 mg PO DAILY [facility] Last Admin: 01/05/22 09:32 Dose: 500 mg Documented by: KEEGAN Doxycycline Hyclate (Doxycycline Hyclate 100 Mg Tablet) 100 mg PO Q12H [facility] Last Admin: 01/05/22 00:07 Dose: 100 mg Documented by: GABRIELA Fluticasone/Vilanterol (Fluticasone/Vilanterol 200/25 Blst.W.Dev) 1 puff INHALE RDAILY [facility] Last Admin: 01/05/22 08:26 Dose: 1 puff Documented by: MARY ANN Guaifenesin/Dextromethorphan (Guaifenesin Dm 100/10/5 Ml 5 Ml Syrup) 10 ml PO Q6H [facility] Last Admin: 01/05/22 04:58 Dose: 10 ml Documented by: GABRIELA Hydromorphone HCl (Hydromorphone Hcl 1 Mg/Ml Syringe) 0.5 mg IVPUSH Q4H PRN; Protocol PRN Reason: Pain, Severe (Pain Scale 7-10) Last Admin: 01/05/22 04:15 Dose: 0.5 mg Documented by: GABRIELA Hydroxyzine HCl (Hydroxyzine Hcl 25 Mg Tablet) 25 mg PO Q8H PRN PRN Reason: itch Piperacillin Sod/Tazobactam (Sod 3.375 gm/ Sodium Chloride) 50 mls @ 100 mls/hr IV Q6H [facility] Last Infusion: 01/05/22 10:12 Dose: 0 mls/hr Documented by: KEEGAN Ipratropium [place] (Ipratropium [place] 0.5 Mg/2.5 Ml Solution) 0.5 mg INHALE RQID PRN PRN Reason: wheezing Ketotifen Fumarate (Ketotifen Fumarate 0.025% Oph 5 Ml Drpbtl) 1 drop EYE-BOTH BID PRN PRN Reason: itch Loratadine (Loratadine 10 Mg Tablet) 10 mg PO DAILY [facility] Last Admin: 01/05/22 09:32 Dose: 10 mg Documented by: KEEGAN Melatonin (Melatonin 3 Mg Tablet) 6 mg PO BEDTIME PRN PRN Reason: Insomnia Mepolizumab (Mepolizumab 100 Mg/Ml Auto.Injct) 100 mg SUBCUT Q28D [facility] Montelukast Sodium (Montelukast Sodium 10 Mg Tablet) 10 mg PO BEDTIME [facility] Last Admin: 01/04/22 22:25 Dose: 10 mg Documented by: YOAN Omeprazole (Omeprazole 40 Mg Capsule.Dr) 40 mg PO DAILY@0630 [facility] Last Admin: 01/05/22 04:58 Dose: 40 mg Documented by: GABRIELA Ondansetron HCl (Ondansetron Hcl 4 Mg/2 Ml Vial) 4 mg IVPUSH Q8H PRN PRN Reason: Nausea and Vomiting Last Admin: 01/03/22 20:04 Dose: 4 mg Documented by: MODESTA Pharmacy Consult (Consult Rx Vancomycin Dosing) 1 each MISCELLANE DAILY PRN PRN Reason: Consult order Prednisone (Prednisone 20 Mg Tablet) 20 mg PO BID [facility] Last Admin: 01/05/22 09:32 Dose: 20 mg Documented by: KEEGAN Senna (Sennosides 8.6 Mg Tablet) 17.2 mg PO BEDTIME PRN PRN Reason: Constipation Last Admin: 01/04/22 11:48 Dose: 17.2 mg Documented by: COLELENI Sodium Chloride (0.9 % Sodium Chloride Flush 3 Ml Syringe) 3 ml IVFLUSH QSHIFT [facility] Last Admin: 01/05/22 09:32 Dose: 3 ml Documented by: KEEGAN Tiotropium [place] (Tiotropium [place] 18 Mcg Cap.W.Dev) 1 puff INHALE RDAILY [facility] Last Admin: 01/05/22 08:26 Dose: 1 puff Documented by: MARY ANN Vitamin D (Cholecalciferol (Vitamin D3) 25 Mcg Tablet) 25 mcg PO DAILY [facility] Last Admin: 01/05/22 09:32 Dose: 25 mcg Documented by: KEEGAN Labs CBC & Chem 7: 01/03/22 10:42 01/05/22 06:27 Labs: Laboratory Results - last 24 hr 01/04/22 01/05/22 11:03 06:27 Estim Creat Clear Calc 81.9 Estimated GFR > 60 Random Vancomycin 9.6 L Microbiology Microbiology Results: Microbiology 01/03/22 06:10 Gram Stain - Final Sputum - Expectorated Sputum Culture - Preliminary Staphylococcus aureus Assessment and Plan (1) Breast mass, right: Status: Acute (2) Pneumonia: Status: Acute (3) Asthma exacerbation: Status: Acute Plan 51-year-old female with a past medical history of asthma, recently discharged from the hospital after being treated for asthma/influenza on 12/27/2021; presented to the hospital today with a chief complaint of chest pain. Chest pain: Pleuritic in nature.? Atypical.? EKG nonischemic.? Troponin negative.? Pain control.? CT scan showed no evidence of pulmonary embolism. No further testing at this point Pneumonia-- CT scan showed findings concerning for infection versus necrotic lucencies on the right upper lobe; also metastatic malignancy in the differential. Continue Zosyn for 1 more day per pulmonology recommendation, oral Doxy Right breast lesion: Oncology is recommending further work up on outpatient basis with [place], [place] Recent history of asthma:? Patient respiratory status improving.? Continue prednisone taper.? DuoNebs p.r.n..? Continue home inhalers.? DVT prophylaxis:? Lovenox Code status:? Full code need for inpatient: has a pneumonia that is being treated with IV antibiotics and response being slow, will continue IV Abx for at least one more day and monitor response and possible discharge tomorrow Quality Stroke Does the patient have a stroke diagnosis?: No VTE Prior VTE?: No VTE Risk Level:: Medical - moderate - high VTE Device Contraindication: Treatment Not Indicated VTE Drug Contraindication: N/A - Med Ordered
[2022-01-05] MEDS: Albuterol/Iprat 2.5/0.5MG 3 ML AMPUL.NEB INHALE ×2 (11:38→19:53)
[2022-01-05] MEDS: Montelukast Sodium 10 MG TABLET PO (22:03)
[2022-01-06] VITALS (10 sets, daily range): BP systolic 114–157; BP diastolic 67–79; PULSE 57–82; RESP 14–20; TEMP 36.3–37.1; O2SAT 97–100
[2022-01-06] MEDS: Albuterol/Iprat 2.5/0.5MG 3 ML AMPUL.NEB INHALE ×4 (03:06→20:52)
[2022-01-06] MEDS: Piperacillin Sodium/Tazobactam 3.375 GM in 0.9 % Sodium Chloride 50 ML IV (03:52)
[2022-01-06] MEDS: HYDROmorphone HCl 1 MG/ML SYRINGE 0.5 MG IVPUSH ×2 (03:52→09:39)
[2022-01-06] MEDS: Omeprazole 40 MG CAPSULE.DR PO (05:58)
[2022-01-06] MEDS: guaiFENesin DM 100/10/5 ML 5 ML SYRUP 10 ML PO ×4 (05:58→22:20)
--- NOTE | 2022-01-06 07:00 | CA_ITS ---
Transthoracic Echocardiogram Patient (Last, First, Middle): Codie Fernández, Gender: Female Date of : 1970 Age: 51 Procedure Date: 01/06/2022 Procedure Type: Transthoracic Echocardiogram [place] [facility] [place]: 154.94 cm Weight: 77.57 kg BSA: 1.77 m2 Heart Rate: bpm BP: 148 / 78 mmHg Auto Slip Cover Installer: BILLY Referring MD: Waqar Zuniga MD Symptoms: assess of endocarditis, has stap septi emboli Study Quality: Fair/Contrast ECG Rhythm: Sinus Conclusions: - The left ventricular systolic function is normal. The calculated ejection fraction is 69% by biplane method. - There is moderate septal and moderate basal asymmetric hypertrophy. - No obvious valvular pathology seen on this study. Findings Procedure Information Contrast agent, definity, is being given per protocol without apparent complications. Left Ventricle Normal left ventricular cavity size. There is mildly increased left ventricular wall thickness. The left ventricular systolic function is normal. The calculated ejection fraction is 69% by biplane method. There is no evidence of regional wall motion abnormalities. E/E prime ratio is between 8 and 15 consistent with indeterminate filling pressures. Evidence suggests grade I (mild) diastolic dysfunction. There is moderate septal and moderate basal asymmetric hypertrophy. Right Ventricle Normal right ventricular cavity size and systolic function. Atria Both atria are normal in size. Aortic Valve There is a normal trileaflet aortic valve. There is no aortic valve stenosis. There is no aortic valve regurgitation. Mitral Valve The mitral valve appears normal. There is trace mitral valve regurgitation. There is no mitral valve stenosis. Pulmonic Valve The pulmonic valve is likely normal. Tricuspid Valve Normal tricuspid valve structure. There is trace tricuspid valve regurgitation. The pulmonary artery systolic pressure is normal. Great Vessels The asc aorta is normal in size. Venous The inferior vena cava is normal in size and collapses greater than 50% with inspiration. Pericardium/Pleural There is a trivial pericardial effusion. Prior Study Comparison No prior study available for comparison. Recommendations, Care & Conclusions No obvious valvular pathology seen on this study. Consider a KANE if clinically appropriate. Measurements 2D Linear Measurements IVSd: 1.14 0.6-0.9/0.6-1.0 cm LVIDd: 4.25 3.9-5.3/4.2-5.9 cm LVIDd Index: 2.40 2.4-3.2/2.2-3.1 cm/m2 LVIDs: 2.76 2.0-3.6 cm LVPWd: 1.21 0.7-1.1 cm LA Diam: 3.50 2.7-3.8/3.0-4.0 cm LAIDs Index: 1.98 1.5-2.3 cm/m2 LV Mass: 219.16 67-162/88-224 g LV Mass Index: 123.82 43-95/49-115 g/m2 LVOT Diam: 2.20 3.0+(-)1.3 cm 2D Systolic Function EF 4C: 70.40 >55% EF 2C: 67.80 >55% EF BiP: 68.90 >55% Mitral Valve MV Pk E: 0.67 MV PK A: 0.87 MV Decel Time: 257.00 E/A: 0.80 E'Lateral: 5.98 E'Medial: 4.79 E/E' Med: 14.10 E/E' Lat: 11.30 PHT: 75.00 MVA PHT: 2.93 Decel Waller: 2.61 Aortic Valve AoV Pk Santo: 1.26 AoV Mn Santo: 0.84 AoV VTI: 0.26 AoV Pk Grad: 6.00 Aov Mn Grad: 3.00 MINNIE Cont.VTI: 2.86 LVOT LVOT Pk Santo: 0.91 LVOT Mn Santo: 0.65 LVOT VTI: 0.20 LVOT Pk Grad: 3.00 LVOT Mn Grad: 2.00 LVOT Diam: 2.20 LVOT Area: 3.80 Diastolic Function MV Pk E: 0.67 MV Pk A: 0.87 E/A: 0.80 E'Medial: 4.79 E/E' Med: 14.10 E' Laterial: 5.98 E/E' Lat: 11.30 Right Ventricle TAPSE (mm): 22.30 TVS' Santo: 18.20 Tricuspid Valve TR Pk Santo: 2.02 TR Pk Grad: 16.00 RA Press: 3.00 RVSP: 19.00 Great Vessels Aorta Sinus of Valsalva: 3.27 2.0-3.[address] [place]: 2.91 1.7-3.4 cm Ao Asc: 3.50 2.1-3.4 cm Ao Arch: 3.00 Updated in Other Vendor System with Status of Final Giovanny Pandya MD electronically signed on 01/06/2022 11:58:34 AM with status of Final
[2022-01-06 07:10] LABS: Creatinine Clr Calc Pharmacy 75.9; Estimated Glomerular Filt Rate > 60
[2022-01-06] MEDS: Fluticasone/Vilanterol 200/25 BLST.W.DEV 1 PUFF INHALE (08:39)
--- NOTE | 2022-01-06 08:56 | HO.PM.IMPN ---
Subjective Subjective Date of Service: 01/06/22 Interval History: Follow-up on chest pain, pneumonia, breast lesion. Interval history: persistent cough, no sob, has some left sided chest pain this morning, Her suputum cultures is showing staph aureus Review of Systems no fever has some chest pain has cough Physical Exam Vital Signs: Vital Signs: Last Vital Signs Temp 98.3 F 01/06/22 08:00 Pulse 67 01/06/22 08:41 Resp 20 01/06/22 08:41 BP 148/78 H 01/06/22 08:00 Pulse Ox 100 01/06/22 08:00 BMI result Body Mass Index 32.5 Const: Other: General: AO X 3, no acute distress Resp: rhonchi luis CVS: S1,S2,RRR GI: +BS, NT, no distention Skin: No rash Neuro: motor grossly intact Psych: appropriate affect Objective Data Active Medications Acetaminophen (Acetaminophen 325 Mg Tablet) 650 mg PO Q6H PRN PRN Reason: Pain, Mild (Pain Scale 1-3) Albuterol/Ipratropium (Albuterol/Iprat 2.5/0.5mg 3 Ml Ampul.Neb) 3 ml INHALE RQ4H PRN PRN Reason: Shortness of Breath/Wheezing Last Admin: 01/06/22 03:06 Dose: 3 ml Documented by: PARRISH Albuterol/Ipratropium (Albuterol/Iprat 2.5/0.5mg 3 Ml Ampul.Neb) 3 ml INHALE RQ6H WHILE AWAKE [facility] Last Admin: 01/06/22 08:38 Dose: 3 ml Documented by: EMELINA Azelastine HCl (Azelastine Hcl Nasal 137 Mcg/[place] 30 Ml) 2 spray NOSTRIL-B BID [facility] Last Admin: 01/05/22 22:04 Dose: Not Given Documented by: SAVITA Non-Admin Reason: Patient Refused Bupropion HCl (Bupropion Hcl Xl 150 Mg Tab.Er.24h) 150 mg PO DAILY [facility] Last Admin: 01/05/22 09:32 Dose: 150 mg Documented by: KEEGAN Calcium Carbonate (Calcium Carbonate 500 Mg Tablet) 500 mg PO DAILY [facility] Last Admin: 01/05/22 09:32 Dose: 500 mg Documented by: KEEGAN Doxycycline Hyclate (Doxycycline Hyclate 100 Mg Tablet) 100 mg PO Q12H [facility] Last Admin: 01/05/22 23:38 Dose: 100 mg Documented by: SAVITA Fluticasone/Vilanterol (Fluticasone/Vilanterol 200/25 Blst.W.Dev) 1 puff INHALE RDAILY [facility] Last Admin: 01/06/22 08:39 Dose: 1 puff Documented by: EMELINA Guaifenesin/Dextromethorphan (Guaifenesin Dm 100/10/5 Ml 5 Ml Syrup) 10 ml PO Q6H [facility] Last Admin: 01/06/22 05:58 Dose: 10 ml Documented by: SAVITA Hydromorphone HCl (Hydromorphone Hcl 1 Mg/Ml Syringe) 0.5 mg IVPUSH Q4H PRN; Protocol PRN Reason: Pain, Severe (Pain Scale 7-10) Last Admin: 01/06/22 03:52 Dose: 0.5 mg Documented by: SAVITA Hydroxyzine HCl (Hydroxyzine Hcl 25 Mg Tablet) 25 mg PO Q8H PRN PRN Reason: itch Piperacillin Sod/Tazobactam (Sod 3.375 gm/ Sodium Chloride) 50 mls @ 100 mls/hr IV Q6H [facility] Last Infusion: 01/06/22 04:45 Dose: 0 mls/hr Documented by: SAVITA Ipratropium [place] (Ipratropium [place] 0.5 Mg/2.5 Ml Solution) 0.5 mg INHALE RQID PRN PRN Reason: wheezing Ketotifen Fumarate (Ketotifen Fumarate 0.025% Oph 5 Ml Drpbtl) 1 drop EYE-BOTH BID PRN PRN Reason: itch Loratadine (Loratadine 10 Mg Tablet) 10 mg PO DAILY [facility] Last Admin: 01/05/22 09:32 Dose: 10 mg Documented by: DOBROB Melatonin (Melatonin 3 Mg Tablet) 6 mg PO BEDTIME PRN PRN Reason: Insomnia Mepolizumab (Mepolizumab 100 Mg/Ml Auto.Injct) 100 mg SUBCUT Q28D [facility] Montelukast Sodium (Montelukast Sodium 10 Mg Tablet) 10 mg PO BEDTIME [facility] Last Admin: 01/05/22 22:03 Dose: 10 mg Documented by: SAVITA Omeprazole (Omeprazole 40 Mg Capsule.Dr) 40 mg PO DAILY@0630 [facility] Last Admin: 01/06/22 05:58 Dose: 40 mg Documented by: SAVITA Ondansetron HCl (Ondansetron Hcl 4 Mg/2 Ml Vial) 4 mg IVPUSH Q8H PRN PRN Reason: Nausea and Vomiting Last Admin: 01/03/22 20:04 Dose: 4 mg Documented by: MODESTA Pharmacy Consult (Consult Rx Vancomycin Dosing) 1 each MISCELLANE DAILY PRN PRN Reason: Consult order Prednisone (Prednisone 20 Mg Tablet) 20 mg PO BID [facility] Last Admin: 01/05/22 22:03 Dose: 20 mg Documented by: SAVITA Senna (Sennosides 8.6 Mg Tablet) 17.2 mg PO BEDTIME PRN PRN Reason: Constipation Last Admin: 01/04/22 11:48 Dose: 17.2 mg Documented by: COLELENI Sodium Chloride (0.9 % Sodium Chloride Flush 3 Ml Syringe) 3 ml IVFLUSH QSHIFT [facility] Last Admin: 01/05/22 22:04 Dose: 3 ml Documented by: SAVITA Tiotropium [place] (Tiotropium [place] 18 Mcg Cap.W.Dev) 1 puff INHALE RDAILY [facility] Last Admin: 01/06/22 08:39 Dose: 1 puff Documented by: EMELINA Vitamin D (Cholecalciferol (Vitamin D3) 25 Mcg Tablet) 25 mcg PO DAILY [facility] Last Admin: 01/05/22 09:32 Dose: 25 mcg Documented by: KEEGAN Labs CBC & Chem 7: 01/03/22 10:42 01/06/22 06:35 Labs: Laboratory Results - last 24 hr 01/06/22 06:35 Estim Creat Clear Calc 75.9 Estimated GFR > 60 Microbiology Microbiology Results: Microbiology 01/03/22 06:10 Gram Stain - Final Sputum - Expectorated Sputum Culture - Final Staphylococcus aureus Assessment and Plan (1) Breast mass, right: Status: Acute (2) Pneumonia: Status: Acute Plan 51-year-old female with a past medical history of asthma, recently discharged from the hospital after being treated for asthma/influenza on 12/27/2021; presented to the hospital with chest pain, had recently been admitted with pneumnia and asthma exacerbation and on this occasion found to have cavitary pneumonia, with staph aurus in sputum.. concerning for septic emboli but also has a breast mass and so these could be metastatic disease Pneumonia-- CT scan showed findings concerning for infection versus necrotic lucencies on the right upper lobe; also metastatic malignancy in the differential, there was no PE. She has been on Zosyn and Vanco, vanco canged to Doxy on 01/04.. Sputum culture is showing Staph Aureus raising concern for septic emboli. Will cover for staph Aures with Kefzol, repeat Blood culture, get Echo today. Repeat CXR today. Dr. Lopez is following Right breast lesion: Dr. Oliva has seen her and recommending further work up on outpatient basis with [facility], [place] Recent history of asthma:? Patient respiratory status improving.? Continue prednisone taper.? DuoNebs p.r.n..? Continue home inhalers.? DVT prophylaxis:? Lovenox Code status:? Full code need for inpatient: has a pneumonia that is being treated with IV antibiotics and monitoring for response and need for endocarditis work up Quality Stroke Does the patient have a stroke diagnosis?: No VTE Prior VTE?: No VTE Risk Level:: Medical - moderate - high VTE Device Contraindication: Treatment Not Indicated VTE Drug Contraindication: N/A - Med Ordered
--- NOTE | 2022-01-06 09:36 | MHC.CM.PN ---
Female 51 DX PNA BR CA Patient is scheduled for an ECHO and CXR today. The work up is to address question of Septic emboli/endocarditis. DP home via family transport. CM will follow to adjust dc plan as needed.
[2022-01-06] MEDS: 0.9 % Sodium Chloride Flush 3 ML SYRINGE IVFLUSH ×3 (09:37→22:20)
[2022-01-06] MEDS: Ketotifen Fumarate 0.025% Oph 5 ML DRPBTL 1 DROP EYE-BOTH (09:38)
[2022-01-06] MEDS: Azelastine HCl Nasal 137 MCG/Spray 30 ML 2 SPRAY NOSTRIL-B (09:38)
[2022-01-06] MEDS: ceFAZolin Sodium/Dextrose,Iso 2 GM/50 ML PIGGYBACK IV ×2 (09:38→16:18)
[2022-01-06] MEDS: Cholecalciferol (Vitamin D3) 25 MCG TABLET PO (09:39)
[2022-01-06] MEDS: buPROPion HCl XL 150 MG TAB.ER.24H PO (09:39)
[2022-01-06] MEDS: Loratadine 10 MG TABLET PO (09:39)
[2022-01-06] MEDS: predniSONE 20 MG TABLET PO ×2 (09:39→22:19)
--- NOTE | 2022-01-06 16:32 | W.PM.IDCN ---
History of Present Illness Data of Consult Service Date: 01/06/22 Requesting physician: Waqar Zuniga Primary Care Provider: Gt Prescott III, MD [facility] Reason for consult: shortness of breath,small necrotic areas on CT lung She presents with a day of right pleuritic chest pain. She had flu A on 12/27 and is still coughing. She has no fever or chills now. PMFSH Past Medical History Medical History Asthma Functional capacity: independent ambulation Family History Family history: reviewed and not pertinent Social History Social History Household Members: Family Caregiver staying overnight: No Housing: House Do you presently have visiting nurse or other home services: Yes Alcohol intake: never Patient Tobacco Use Status: Never used Tobacco Advance Directives Date on File: 12/26/21 service: No Current occupational status: disabled Meds Allergies Allergy/AdvReac Type Severity Reaction Status Date / Time latex [Latex] Allergy Mild UNKNOWN Verified 12/26/21 09:51 cats, pollen, mold Allergy Unknown Unknown Uncoded 12/26/21 09:51 Latex Allergy Unknown Unknown Uncoded 12/26/21 09:51 Active Medications: Current Medications Acetaminophen (Acetaminophen 325 Mg Tablet) 650 mg PO Q6H PRN PRN Reason: Pain, Mild (Pain Scale 1-3) Albuterol/Ipratropium (Albuterol/Iprat 2.5/0.5mg 3 Ml Ampul.Neb) 3 ml INHALE RQ4H PRN PRN Reason: Shortness of Breath/Wheezing Last Admin: 01/06/22 03:06 Dose: 3 ml Documented by: Albuterol/Ipratropium (Albuterol/Iprat 2.5/0.5mg 3 Ml Ampul.Neb) 3 ml INHALE RQ6H WHILE AWAKE [facility] Last Admin: 01/06/22 14:11 Dose: 3 ml Documented by: Azelastine HCl (Azelastine Hcl Nasal 137 Mcg/[place] 30 Ml) 2 spray NOSTRIL-B BID [facility] Last Admin: 01/06/22 09:38 Dose: 2 spray Documented by: Bupropion HCl (Bupropion Hcl Xl 150 Mg Tab.Er.24h) 150 mg PO DAILY [facility] Last Admin: 01/06/22 09:39 Dose: 150 mg Documented by: Calcium Carbonate (Calcium Carbonate 500 Mg Tablet) 500 mg PO DAILY [facility] Last Admin: 01/06/22 09:39 Dose: 500 mg Documented by: Fluticasone/Vilanterol (Fluticasone/Vilanterol 200/25 Blst.W.Dev) 1 puff INHALE RDAILY [facility] Last Admin: 01/06/22 08:39 Dose: 1 puff Documented by: Guaifenesin/Dextromethorphan (Guaifenesin Dm 100/10/5 Ml 5 Ml Syrup) 10 ml PO Q6H [facility] Last Admin: 01/06/22 16:17 Dose: 10 ml Documented by: Hydromorphone HCl (Hydromorphone Hcl 1 Mg/Ml Syringe) 0.5 mg IVPUSH Q4H PRN; Protocol PRN Reason: Pain, Severe (Pain Scale 7-10) Last Admin: 01/06/22 09:39 Dose: 0.5 mg Documented by: Hydroxyzine HCl (Hydroxyzine Hcl 25 Mg Tablet) 25 mg PO Q8H PRN PRN Reason: itch Cefazolin Sodium/Dextrose (Ancef) 2 gm in 50 mls @ 100 mls/hr IV Q8H [facility] Last Admin: 01/06/22 16:18 Dose: 100 mls/hr Documented by: Ipratropium [place] (Ipratropium [place] 0.5 Mg/2.5 Ml Solution) 0.5 mg INHALE RQID PRN PRN Reason: wheezing Ketotifen Fumarate (Ketotifen Fumarate 0.025% Oph 5 Ml Drpbtl) 1 drop EYE-BOTH BID PRN PRN Reason: itch Last Admin: 01/06/22 09:38 Dose: 1 drop Documented by: Loratadine (Loratadine 10 Mg Tablet) 10 mg PO DAILY [facility] Last Admin: 01/06/22 09:39 Dose: 10 mg Documented by: Melatonin (Melatonin 3 Mg Tablet) 6 mg PO BEDTIME PRN PRN Reason: Insomnia Mepolizumab (Mepolizumab 100 Mg/Ml Auto.Injct) 100 mg SUBCUT Q28D [facility] Montelukast Sodium (Montelukast Sodium 10 Mg Tablet) 10 mg PO BEDTIME [facility] Last Admin: 01/05/22 22:03 Dose: 10 mg Documented by: Omeprazole (Omeprazole 40 Mg Capsule.Dr) 40 mg PO DAILY@0630 [facility] Last Admin: 01/06/22 05:58 Dose: 40 mg Documented by: Ondansetron HCl (Ondansetron Hcl 4 Mg/2 Ml Vial) 4 mg IVPUSH Q8H PRN PRN Reason: Nausea and Vomiting Last Admin: 01/03/22 20:04 Dose: 4 mg Documented by: Pharmacy Consult (Consult Rx Vancomycin Dosing) 1 each MISCELLANE DAILY PRN PRN Reason: Consult order Prednisone (Prednisone 20 Mg Tablet) 20 mg PO BID [facility] Last Admin: 01/06/22 09:39 Dose: 20 mg Documented by: Senna (Sennosides 8.6 Mg Tablet) 17.2 mg PO BEDTIME PRN PRN Reason: Constipation Last Admin: 01/04/22 11:48 Dose: 17.2 mg Documented by: Sodium Chloride (0.9 % Sodium Chloride Flush 3 Ml Syringe) 3 ml IVFLUSH QSHIFT [facility] Last Admin: 01/06/22 16:23 Dose: 3 ml Documented by: Tiotropium [place] (Tiotropium [place] 18 Mcg Cap.W.Dev) 1 puff INHALE RDAILY [facility] Last Admin: 01/06/22 08:39 Dose: 1 puff Documented by: Vitamin D (Cholecalciferol (Vitamin D3) 25 Mcg Tablet) 25 mcg PO DAILY [facility] Last Admin: 01/06/22 09:39 Dose: 25 mcg Documented by: Home Medications Medication Instructions Recorded Confirmed Last Taken Type azelastine 137 mcg (0.1 %) nasal 2 spray INTRANASAL BID 12/26/21 01/01/22 01/01/22 History spray aerosol bupropion HCl 150 mg 24 hr tablet, 1 tab PO DAILY 12/26/21 01/01/22 01/01/22 History extended release calcium citrate 200 mg (950 mg) 1 tab PO DAILY 12/26/21 01/01/22 12/26/21 History tablet cholecalciferol (vitamin D3) 25 1 tab PO DAILY 12/26/21 01/01/22 01/01/22 History mcg (1,000 unit) tablet fluticasone propionate 230 1 puff INHALATION BID 12/26/21 01/01/22 01/01/22 History mcg-salmeterol 21 mcg/actuation HFA inhaler (Advair HFA) hydroxyzine HCl 25 mg tablet 1 tab PO Q8H PRN 12/26/21 01/01/22 Unknown History ibuprofen 600 mg tablet 1 tab PO Q8H PRN 12/26/21 01/01/22 01/01/22 History ipratropium bromide 0.02 % 2.5 ml INHALATION QID PRN 12/26/21 01/01/22 Unknown History solution for inhalation ketotifen fumarate 0.025 % (0.035 1 drp OPHTHALMIC (EYE) BID PRN 12/26/21 01/01/22 Unknown History %) eye drops loratadine 10 mg tablet 1 tab PO DAILY 12/26/21 01/01/22 01/01/22 History mepolizumab 100 mg/mL subcutaneous 100 mg SUBCUT Q4W 12/26/21 01/01/22 12/04/21 History auto-injector (Nucala) montelukast 10 mg tablet 1 tab PO BEDTIME 12/26/21 01/01/22 12/25/21 History omeprazole 40 mg capsule,delayed 1 cap PO DAILY@0630 12/26/21 01/01/22 01/01/22 History release tiotropium bromide 1.25 2 puff PO DAILY 12/26/21 01/01/22 01/01/22 History mcg/actuation mist for inhalation (Spiriva Respimat) ipratropium 20 mcg-albuterol 100 1 puff INHALATION QID 01/01/22 01/01/22 01/01/22 History mcg/actuation mist for inhalation (Combivent Respimat) oxycodone 5 mg tablet 1 - 2 tab PO Q4-6H PRN 01/01/22 01/01/22 01/01/22 History Physical Exam Vital Signs: Vital Signs: Last Vital Signs Temp 98.7 F 01/06/22 15:58 Pulse 82 01/06/22 15:58 Resp 18 01/06/22 15:58 BP 114/67 01/06/22 15:58 Pulse Ox 98 01/06/22 15:58 BMI result Body Mass Index 32.5 Const: General: cooperative Resp: Effort & Inspection: normal respiratory effort Cardio: Rate: regular rate Rhythm: regular rhythm GI: Palpation (GI): Soft to palpation and nontender Extrem: General: Yes normal to inspection Results Labs CBC & Chem 7: 01/03/22 10:42 01/06/22 06:35 Labs: BMP 01/06/22 06:35 Creatinine 0.81 Microbiology Microbiology Results: Microbiology 01/03/22 06:10 Sputum - Expectorated Gram Stain - Final 01/03/22 06:10 Sputum - Expectorated Sputum Culture - Final Staphylococcus aureus 01/01/22 19:30 Blood - Venous Blood Culture - Preliminary No growth after 48 hours. 01/01/22 19:17 Blood - Venous Blood Culture - Preliminary No growth after 48 hours. Assessment and Plan (1) Pleuritic chest pain: Status: Acute She has some staph in sputum but none in blood. Perhaps she has some areas of necrotic bronchitis with staph postflu. Plan Staph treatment with antistaph antibiotics No MRSA seen at this time. Po Doxycycline outpatient for 10 days Can check echo evaluate endocarditis and bronch Pulmonary outpatient if no improvement in nodules as outpatient.
--- NOTE | 2022-01-06 20:52 | PM.PNPUL ---
Subjective Subjective Date of Service: 01/06/22 Principal diagnosis: PNEUMONIA Interval history: The patient was seen on exam. Complaining of some pleuritic chest discomfort primarily on the left last night. Moderate severity. Better this morning. She continues on the IV antibiotics. Her sputum culture was positive for Staph aureus. I did review her CT scan of the chest demonstrating cavitary pulmonary nodules in bronchovascular distribution in the periphery which is typically seen with hematogenous spreading processes. In this case concerning for Staph aureus bacteremia. Objective Data Labs CBC & Chem 7: 01/03/22 10:42 01/06/22 06:35 Labs: Laboratory Results - last 24 hr 01/06/22 06:35 Creatinine 0.81 Estim Creat Clear Calc 75.9 Estimated GFR > 60 Microbiology Microbiology Results: Microbiology 01/03/22 06:10 Sputum - Expectorated Gram Stain - Final 01/03/22 06:10 Sputum - Expectorated Sputum Culture - Final Staphylococcus aureus 01/01/22 19:30 Blood - Venous Blood Culture - Preliminary No growth after 48 hours. 01/01/22 19:17 Blood - Venous Blood Culture - Preliminary No growth after 48 hours. Review of Systems Review of Systems General no headache, no dizziness no fever chills. CVS chest tightness,no palpitation. Respiratory shortness of breath and productive cough Gastrointestinal no nausea no vomiting, no abdominal pain no dysuria Skin no rash Yes all other systems are reviewed and are negative Constitutional: Denies fever(s) Eyes: Denies change in vision Cardiovascular: Reports chest pain Respiratory: Denies hemoptysis, Reports pain on inspiration and Reports wheezing Gastrointestinal: Reports no additional gastrointestinal complaints Musculoskeletal: Reports no additional musculoskeletal complaints Denies Neuro-related abnormal movements Psychiatric: Reports no additional psychiatric complaints Endocrine: Reports no additional endocrine complaints Allergic/Immunologic: Reports wheezing Physical Exam Vital Signs: Vital Signs: Last Vital Signs Temp 97.5 F 01/06/22 20:00 Pulse 60 01/06/22 20:00 Resp 17 01/06/22 20:00 BP 135/78 01/06/22 20:00 Pulse Ox 99 01/06/22 20:00 BMI result Body Mass Index 32.5 Const: General: alert Neck: Neck: Yes normal visual inspection, Yes full ROM and Yes no lymphadenopathy Chest: Chest palpation & inspection: normal inspection of the chest Resp: Auscultation: rhonchi, wheezes and diminished lung sounds Cardio: Rate: regular rate Rhythm: regular rhythm Heart sounds: S1 normal heart sound present and S2 normal heart sound present GI: Palpation (GI): Soft to palpation and nontender Auscultation: normal bowel sounds Skin: General skin exam: rashes and/or lesions noted Procedures Date of Service Date of Service: 01/06/22 Assessment and Plan Assessment and plan (1) Asthma exacerbation: Status: Acute (2) Pneumonia: Problem details: suspicious for hematogenous spread Status: Acute (3) Pleuritic chest pain: Status: Acute (4) Pulmonary cavitary lesion: Status: Acute Plan ECHO to r/o endocarditis Repeat blood cultures Treat MSSA pneumonia Respiratory therapy Time Spent With Patient Time: Total time spent is greater than 50% in coordination of care (as documented) at patient's floor/unit and/or counseling patient: Progress Note: Quality Stroke Does the patient have a stroke diagnosis?: No
[2022-01-06] MEDS: Montelukast Sodium 10 MG TABLET PO (22:19)
[2022-01-07] MEDS: ceFAZolin Sodium/Dextrose,Iso 2 GM/50 ML PIGGYBACK IV ×2 (02:24→09:52)
[2022-01-07] MEDS: Albuterol/Iprat 2.5/0.5MG 3 ML AMPUL.NEB INHALE ×3 (03:04→10:57)
[2022-01-07 03:05] VITALS: PULSE 60; RESP 14; O2SAT 98
[2022-01-07 03:42] VITALS: BP 128/63; PULSE 59; RESP 17; TEMP 36.4; O2SAT 100
[2022-01-07] MEDS: Acetaminophen 325 MG TABLET 650 MG PO (03:51)
[2022-01-07] MEDS: guaiFENesin DM 100/10/5 ML 5 ML SYRUP 10 ML PO ×2 (03:52→10:53)
[2022-01-07] MEDS: Omeprazole 40 MG CAPSULE.DR PO (05:43)
[2022-01-07 06:03] LABS: Creatinine Clr Calc Pharmacy 85.3; Estimated Glomerular Filt Rate > 60
[2022-01-07 07:39] VITALS: BP 135/68; PULSE 59; RESP 18; TEMP 36.7; O2SAT 95
[2022-01-07] MEDS: Fluticasone/Vilanterol 200/25 BLST.W.DEV 1 PUFF INHALE (08:35)
[2022-01-07 08:36] VITALS: PULSE 18; RESP 18; O2SAT 98
--- NOTE | 2022-01-07 09:26 | P.PNPL_ITS ---
Subjective Subjective Date of Service: 01/07/22 Principal diagnosis: PNEUMONIA Interval history: The patient was seen on exam. She is feeling a little bit better. She is complaining of a sore throat. Her cough is dry. Her cultures again grew MSSA. She did have an echocardiogram based on the fact that her nodular densities are cavitated in a bronchovascular distribution suggesting hematogenous spread. Need to rule out endocarditis. She also had repeat blood cultures on there have been negative today. If her echocardiogram is reassuring and her blood cultures are negative the patient may be able to go home on oral antibiotics to treat the MSSA pneumonia. The patient is also aware that she has a nodular density in her breast and she needs to undergo mammogram. Objective Data Labs CBC & Chem 7: 01/03/22 10:42 01/07/22 05:37 Labs: Laboratory Results - last 24 hr 01/07/22 05:37 Creatinine 0.72 Estim Creat Clear Calc 85.3 Estimated GFR > 60 Microbiology Microbiology Results: Microbiology 01/01/22 19:30 Blood - Venous Blood Culture - Final No growth after 5 days. 01/01/22 19:17 Blood - Venous Blood Culture - Final No growth after 5 days. 01/03/22 06:10 Sputum - Expectorated Gram Stain - Final 01/03/22 06:10 Sputum - Expectorated Sputum Culture - Final Staphylococcus aureus Review of Systems Review of Systems General no headache, no dizziness no fever chills. CVS chest tightness,no palpitation. Respiratory shortness of breath and productive cough Gastrointestinal no nausea no vomiting, no abdominal pain no dysuria Skin no rash Yes all other systems are reviewed and are negative Constitutional: Denies fever(s) Eyes: Denies change in vision Cardiovascular: Reports chest pain Respiratory: Denies hemoptysis, Reports pain on inspiration and Reports wheezing Gastrointestinal: Reports no additional gastrointestinal complaints Musculoskeletal: Reports no additional musculoskeletal complaints Denies Neuro-related abnormal movements Psychiatric: Reports no additional psychiatric complaints Endocrine: Reports no additional endocrine complaints Allergic/Immunologic: Reports wheezing Physical Exam Vital Signs: Vital Signs: Last Vital Signs Temp 98.1 F 01/07/22 07:39 Pulse 18 L 01/07/22 08:36 Resp 18 01/07/22 08:36 BP 135/68 01/07/22 07:39 Pulse Ox 95 01/07/22 07:39 BMI result Body Mass Index 32.5 Const: General: alert Neck: Neck: Yes normal visual inspection, Yes full ROM and Yes no lymphad enopathy Chest: Chest palpation & inspection: normal inspection of the chest Resp: Auscultation: diminished lung sounds Cardio: Rate: regular rate Rhythm: regular rhythm Heart sounds: S1 normal heart sound present and S2 normal heart sound present GI: Palpation (GI): Soft to palpation and nontender Auscultation: normal bowel sounds Skin: General skin exam: rashes and/or lesions noted Procedures Date of Service Date of Service: 01/07/22 Assessment and Plan Assessment and plan (1) Pulmonary cavitary lesion: Status: Acute (2) Breast mass, right: Status: Acute (3) Pneumonia: Problem details: suspicious for hematogenous spread Status: Acute (4) Asthma exacerbation: Status: Acute Plan Awaiting results of the echocardiogram Blood cultures no growth to date Deescalate antibiotics to treat MSSA pneumonia. Cefazolin for 3 weeks Our office will call the patient to make sure she has a follow-up within 2 weeks to address the nodular densities. She will need a repeat CT scan of the chest to make sure that there responded therapy. If the nodules are persistent then further diagnostic interventions will be required. Time Spent With Patient Time: Total time spent is greater than 50% in coordination of care (as documented) at patient's floor/unit and/or counseling patient: Progress Note: Quality Stroke Does the patient have a stroke diagnosis?: No
[2022-01-07] MEDS: predniSONE 20 MG TABLET PO (09:50)
[2022-01-07] MEDS: buPROPion HCl XL 150 MG TAB.ER.24H PO (09:50)
[2022-01-07] MEDS: Cholecalciferol (Vitamin D3) 25 MCG TABLET PO (09:50)
[2022-01-07] MEDS: Loratadine 10 MG TABLET PO (09:51)
[2022-01-07] MEDS: oxyCODONE HCl Immed Release 5 MG TABLET PO (09:51)
[2022-01-07] MEDS: 0.9 % Sodium Chloride Flush 3 ML SYRINGE IVFLUSH (10:00)
[2022-01-07] MEDS: Azelastine HCl Nasal 137 MCG/Spray 30 ML 2 SPRAY NOSTRIL-B (10:00)
[2022-01-07 10:58] VITALS: PULSE 67; RESP 14; O2SAT 100
--- NOTE | 2022-01-07 11:07 | MHC.CM.PN ---
Female 51 DX PNA Breast CA She is discharged home today. She will arrange for transportation with family. Out Patient follow up for Breast CA.
== END 2022-01-07 11:12 | disposition home or self-care (01) | DRG 137 ==
LOC: HO.ED 21:13 → HO.EDOVER 23:06 → HO.IMC 01-02 11:33
PROVIDERS: Admitting Provider Hospitalist; Emergency Provider Emergency Medicine Emergency Medical Services; PCP Internal Medicine; Visit Provider Internal Medicine
DX: J15.211 Pneumonia due to Methicillin susceptible Staphylococcus aureus (principal); J45.41 Moderate persistent asthma with (acute) exacerbation; C78.00 Secondary malignant neoplasm of unspecified lung; N63.0 Unspecified lump in unspecified breast; Z20.822 Contact with and (suspected) exposure to COVID-19; Z91.040 Latex allergy status; Z79.52 Long term (current) use of systemic steroids; Z79.899 Other long term (current) drug therapy
CPT/HCPCS: 36415; 71045; 71046; 71275; 80048; 80053; 80202; 82565; 83605; 83690; 84484; 85025; 85027; 85379; 85610; 85730; 87040; 87070; 87077; 87186; 87205; 87635; 93005; 93306; 94640; 96365; 96375; 96376; 99285; J0690; J1170; J1885; J2270; J2405; J2543; J2930; J3370; Q9957; Q9967

== ENCOUNTER → 2022-01-21 13:39 | Outpatient (BNVA) | payer OTHER, SELFPAY | PROVIDERS: PCP Internal Medicine; Visit Provider Internal Medicine | DX: J18.9 Pneumonia, unspecified organism (principal); J44.9 Chronic obstructive pulmonary disease, unspecified; J98.4 Other disorders of lung; R06.02 Shortness of breath | CPT/HCPCS: 99212 ==

== ENCOUNTER 2022-02-04 08:44 | Outpatient (REF) | payer OTHER, SELFPAY ==
--- NOTE | ~2022-02-04 | CT_ITS ---
EXAMINATION: CT CHEST WITHOUT CONTRAST CLINICAL INFORMATION: Follow-up cavitary lesion/pneumonia. COMPARISON: Chest x-ray 01/06/[address] angiogram chest 01/01/2022. TECHNIQUE: Multidetector volumetric CT imaging of the chest was done. Axial MIP volume rendering provided. Sagittal and coronal reformatted images were obtained. This CT examination was performed using dose optimization techniques as appropriate, variously including the following: *Automated exposure control *Adjustment of mA and/or kV according to patient size (this includes techniques or standardized protocols for targeted exams where dose is matched to indication/reason for exam; i.e. extremities or head) *Use of iterative reconstruction technique DLP: 156 mGy-cm FINDINGS: RESEARCH PHLEBOTOMIST: Well-expanded lungs LUNGS: The lungs are well-expanded without any acute consolidation. Previously seen right upper lobe cavitary lesion has significantly improved with an ill-defined opacity in its place measuring 1.1 cm. Previously seen groundglass patchy opacities in the right upper lobe are much smaller. They measure 3 cm and 2 cm nodules in right upper lobe axial image 235/7. Previously they were much larger. Groundglass opacity in the right middle lobe. Moderate groundglass opacity right middle paracardiac area has significantly improved with some residual changes still present. Left upper lobe 5 mm nodule axial image 95/7 measured 3 mm on the previous exam. No new pulmonary nodules seen. MEDIASTINUM: The thyroid lobes are symmetric and normal. The central trachea and the bronchi widely patent. The heart size and the great vessels are normal caliber. There is no pericardial effusion. No abnormal-sized lymph nodes. Solitary small calcified precarinal lymph node seen. PLEURA: There is no pleural effusion. No pleural mass or thickening. AXILLA: No lymphadenopathy. UPPER ABDOMEN: Visualized liver, spleen appears unremarkable. The pancreas is hypodense and diffusely hazy. There are no radiopaque gallstones or radiopaque renal calculi. There is gastric sleeve surgery seen in the left epigastric region. OSSEOUS STRUCTURES: There is mild exaggerated thoracic kyphosis with degenerative disc changes and ventral spondylosis most prominent in the mid dorsal spine. No acute fracture or lytic process seen. CT/CT chest wo con IMPRESSION: 1. Significant improvement and resolution of right upper lobe cavitary lesions, groundglass density infiltrates right middle lobe, right upper lobe compared to previous CT exam 01/01/2022. There is a small left upper lobe 5 mm nodule previously barely visualized and measured 3 mm. No other new nodules seen. 2. No abnormal mediastinal adenopathy. Fleischner guidelines were followed.
== END 2022-02-04 08:45 | disposition home or self-care (01) ==
LOC: HO.CT 08:44
PROVIDERS: Visit Provider Internal Medicine
DX: J98.4 Other disorders of lung (principal); J44.9 Chronic obstructive pulmonary disease, unspecified; J18.9 Pneumonia, unspecified organism
CPT/HCPCS: 71250

== ENCOUNTER → 2022-02-05 14:20 | Outpatient (BNVA) | payer OTHER, SELFPAY | PROVIDERS: PCP Internal Medicine; Visit Provider Internal Medicine | DX: J44.9 Chronic obstructive pulmonary disease, unspecified (principal); R91.8 Other nonspecific abnormal finding of lung field | CPT/HCPCS: 99212 ==

== ENCOUNTER 2022-03-07 14:35 | Outpatient (REF) | payer OTHER, SELFPAY ==
--- NOTE | ~2022-03-07 | MM_ITS ---
EXAMINATION: MM DIAGNOSTIC DIGITAL BREAST TOMOSYNTHESIS, BILATERAL US DIAGNOSTIC ULTRASOUND BREAST, RIGHT CLINICAL INFORMATION: 1.2 cm focal nodular asymmetry anterior right breast on CT chest. Due for yearly. Prior mammography 2017. Prior history gastric sleeve with intentional weight loss. No known family history breast cancer. The lifetime risk of breast cancer based on the Tyrer-Cuzick Model is 6%. COMPARISON: Outside mammography: 07/20/2018, 05/07/2017, 05/05/2016 ([place]). CT chest noncontrast 02/04/2022, CTA chest 01/01/2022. TECHNIQUE: Digital breast tomosynthesis is performed in both the craniocaudal and mediolateral oblique views along with computer-aided detection (CAD). Synthesized 2D images are generated from the tomosynthesis. Additional bilateral CC, spot right CC, and spot right ML views are obtained. Ultrasound right breast is targeted to the 12:00 through 6:00 position using grayscale imaging and color Doppler without and with harmonics. FINDINGS: There are scattered areas of fibroglandular density (ACR BI-RADS breast composition Category b). Breast tissue composition borders on heterogeneously dense. The breasts are symmetrically decreased in size from outside exams consistent with the prior gastric sleeve surgery and intentional weight loss. Left breast is unremarkable and shows no mass or architectural abnormality. There are bilateral vascular calcifications. No significant calcifications on either side. The axilla and skin contours are unremarkable. There is a macrolobulated masslike asymmetric density on right CC #2 view and spot right CC view measuring approximately 1.4 x 0.9 cm and corresponding to the finding on the 2 CT chest exams. Finding may be obscured on the MLO and ML views by overlapping fibroglandular tissue. Ultrasound demonstrates questionable oval area of heterogeneous echogenicity 2:00 position anterior breast which may correspond to the finding on mammography. There is no clearly visible confidently seen ultrasound correlate however. Results are discussed with the patient at time of visit. Attempt at stereotactic biopsy is suggested. MM/MM tomosynthesis diagnostic BI IMPRESSION: Right: -Nodular macrolobulated asymmetric density 1.4 x 0.9 cm anterior medial right breast on CC and spot CC views corresponding to finding described on recent CT chest exam. Chronicity uncertain as there has been substantial weight loss since prior outside mammography (gastric sleeve) and lesion may have been obscured on prior outside studies. Left: -No mammographic evidence of malignancy. ASSESSMENT: BI-RADS 4: Suspicious (subcategory 4A: Low suspicion for malignancy) RECOMMENDATION: Stereotactic core biopsy for nodular asymmetric density anterior medial right breast. This patient's information was entered into a reminder system with a target due date for their next mammogram.
== END 2022-03-07 14:36 | disposition home or self-care (01) ==
LOC: HO.MAMMO 14:35
PROVIDERS: Visit Provider Internal Medicine
DX: N63.12 Unspecified lump in the right breast, upper inner quadrant (principal)
CPT/HCPCS: 76642; 77062; 77066

== ENCOUNTER 2022-03-12 09:06 | Outpatient (REF) | payer OTHER, SELFPAY ==
--- NOTE | ~2022-03-12 | MM_ITS ---
EXAMINATION: STEREOTACTIC TOMOSYNTHESIS-GUIDED VACUUM-ASSISTED BREAST BIOPSY, RIGHT BREAST SPECIMEN RADIOGRAPH, RIGHT POST PROCEDURE DIGITAL MAMMOGRAM, RIGHT CLINICAL INFORMATION: Density anterior aspect of the right breast without ultrasound correlate.. COMPARISON: March 07, 2022 and studies dating back to May 01, 2015. TECHNIQUE/PROCEDURE: Informed consent was obtained from the patient after discussion of the benefits, risks, and alternatives to biopsy today. Patient appeared to understand. Gave opportunity for questions. Patient signed consent form. BIOPSY TABLE: COSMIC COLOR Affirm Prone Biopsy System. LESION: Density. LOCAL ANESTHESIA: 8 mL 1% lidocaine; 18 mL 1% lidocaine with epinephrine. DERMATOTOMY: Single skin anna dermatotomy performed. NEEDLE: [employer] Eviva 9-gauge vacuum assisted core biopsy device. APPROACH: craniocaudal. TARGETING: Digital breast tomosynthesis used for targeting. CORES: 25. CLIP: [employer] SecurMark T-shaped marker. SPECIMEN RADIOGRAPH: Specimen radiograph is taken in separate room using digital mammography. A few calcifications present within the sample with question of a few calcifications present within the targeted lesion. POST PROCEDURE UNILATERAL DIGITAL MAMMOGRAM: The post biopsy mammogram is performed in separate room using separate digital mammography equipment from the biopsy procedure. Craniocaudal and 90 degree mediolateral views are obtained. There are scattered areas of fibroglandular density (breast composition category: b). The clip marker is in position. The calcifications are markedly decreased at the biopsy site. No gross hematoma. The patient tolerated the procedure well. No immediate complications. Home instructions reviewed with the patient. Final pathology results are pending. MM/MM stereotactic biopsy RT IMPRESSION: 1. Digital tomosynthesis-guided core biopsy right breast with clip placement. 2. Specimen radiograph taken and post procedure mammogram. There is satisfactory positioning of the biopsy clip. 3. Final pathology results pending. An addendum report will be issued.
[2022-03-12] MEDS: Lidocaine HCl 1 % 20 ML VIAL 9 ML SUBCUT (10:27)
[2022-03-12] MEDS: Sodium Bicarbonate 8.4% 50 MEQ/50 ML VIAL SUBCUT (10:28)
== END 2022-03-12 09:07 | disposition home or self-care (01) ==
LOC: HO.MAMMO 09:06
PROVIDERS: Visit Provider Surgery
DX: N63.10 Unspecified lump in the right breast, unspecified quadrant (principal); Z79.899 Other long term (current) drug therapy
CPT/HCPCS: 19081; 88305; 99202; A4648

== ENCOUNTER → 2022-03-17 11:17 | Outpatient (BNVA) | payer OTHER, SELFPAY | PROVIDERS: PCP Internal Medicine; Referring Provider Internal Medicine; Visit Provider Surgery | DX: R92.8 Other abnormal and inconclusive findings on diagnostic imaging of breast (principal); Z98.890 Other specified postprocedural states | CPT/HCPCS: 99212 ==

== ENCOUNTER → 2022-04-09 11:11 | Outpatient (BNVA) | payer OTHER, SELFPAY | PROVIDERS: PCP Internal Medicine; Visit Provider Internal Medicine | DX: J44.9 Chronic obstructive pulmonary disease, unspecified (principal); J98.4 Other disorders of lung; Z79.899 Other long term (current) drug therapy | CPT/HCPCS: 99212 ==

== ENCOUNTER 2022-06-04 15:14 | Emergency (ER) | payer OTHER, SELFPAY ==
--- NOTE | ~2022-06-04 | CT_ITS ---
EXAMINATION: CT ANGIOGRAM OF THE CHEST WITH AND WITHOUT CONTRAST (CT PULMONARY ANGIOGRAM FOR PE) CLINICAL INFORMATION: Reason for Exam sob, hypoxia COMPARISON: 02/04/2022 TECHNIQUE: Prior to contrast administration, noncontrast localization images were obtained. Subsequently, multidetector volumetric imaging was performed from the thoracic inlet to below the diaphragms following the administration of 80 mL Omnipaque 350 intravenous contrast. No contrast reaction reported Sagittal, coronal, and MIP oblique sagittal reformatted images were obtained on the CT workstation, uploaded to PACS, and reviewed. This CT examination was performed using dose optimization techniques as appropriate, variously including the following: *Automated exposure control *Adjustment of mA and/or kV according to patient size (this includes techniques or standardized protocols for targeted exams where dose is matched to indication/reason for exam; i.e. extremities or head) *Use of iterative reconstruction technique Total exam dose-length product 365 mGy-cm FINDINGS: QUALITY OF STUDY/CONTRAST BOLUS: Satisfactory. PULMONARY ARTERIES: There is some limitation here from patient body habitus. I cannot exclude a small filling defect in upper lobe segmental artery on image 154 of series 9 though this could be artifactual. The thoracic inlet is within normal limits. Partially visualized upper abdominal structures are comparable to previous. Centrally there is no bulky adenopathy. The hilar structures are comparable. Imaging of the lung abrams. Right lung; Continued resolution of opacity in the right upper lung. Mild residual is present. Measures 6 mm. There is no effusion. No acute infiltrate. New small 3 mm nodule on image 280 of series 9. Left lung; No significant infiltrate or effusion. Chronic medial basilar lung markings. There is no bowing of the septum. No reflux into the hepatic veins. Review of the bone windows does not demonstrate suspicious bony finding. Degenerative change. CT/CT angio chest PE protocol IMPRESSION: Findings as described above. I cannot exclude a small filling defect in the right upper lobe pulmonary artery as described though this could represent artifact. There is no acute infiltrate or effusion. Continued decrease opacity in the right upper lung but there is a small new nodular density in the right upper lung. Attention to follow-up. VTE: positive This critical result was discussed with Estella Marley at 8:21 PM on 06/04/2022 and it was ascertained that the content and urgency of the report was understood at the time of direct communication.
--- NOTE | ~2022-06-04 | XR_ITS ---
EXAMINATION: XR CHEST CLINICAL INFORMATION: Shortness of breath COMPARISON: Chest CT on 02/04/2022 TECHNIQUE: Frontal view of the chest was obtained. FINDINGS: No significant abnormality is noted involving the heart, lungs, mediastinum, bony thorax or soft tissues. XR/XR chest 1V IMPRESSION: Unremarkable examination.
[2022-06-04 15:30] VITALS: BP 158/96; PULSE 62; O2SAT 98
[2022-06-04 15:31] VITALS: BP 146/80; PULSE 63; RESP 18; TEMP 37; O2SAT 98; BMI 36.2
--- NOTE | 2022-06-04 16:07 | ED.ASTHMA ---
HPI - Asthma General Chief Complaint: Asthma Stated Complaint: asthma attack Time Seen by Provider: 06/04/22 15:59 Source: patient and EMS Mode of arrival: EMS Limitations: no limitations History of Present Illness HPI Narrative: 52-year-old female presents from her primary care physician's office via EMS for evaluation for asthma symptoms. Patient has had shortness of breath for several days, worsens on exertion, with some diffuse but mild chest pain. She was given 2 albuterol treatments and some steroids while she was in her primary care physician's office. MD complaint: asthma attack and shortness of breath Onset (ago): day(s) (4) Severity: moderate Associated symptoms: chest pain Asthma History: followed by specialist Treatments Prior to Arrival: inhaled bronchodilator, inhaled steroid and IV steroid Related Data Current Asthma Therapy: inhaled bronchodilator and inhaled steroid Home Medications Medication Instructions Recorded Confirmed azelastine 137 mcg (0.1 %) nasal 2 spray intranasal BID 12/26/21 04/11/22 spray aerosol calcium citrate 200 mg (950 mg) 1 tab PO DAILY 12/26/21 04/11/22 tablet cholecalciferol (vitamin D3) 25 1 tab PO DAILY 12/26/21 04/11/22 mcg (1,000 unit) tablet fluticasone propionate 230 1 puff inhalation BID 12/26/21 04/11/22 mcg-salmeterol 21 mcg/actuation HFA inhaler (Advair HFA) hydroxyzine HCl 25 mg tablet 1 tab PO Q8H PRN itch 12/26/21 04/11/22 ibuprofen 600 mg tablet 1 tab PO Q8H PRN pain 12/26/21 04/11/22 ipratropium bromide 0.02 % 2.5 ml inhalation QID PRN wheezing 12/26/21 04/11/22 solution for inhalation ketotifen fumarate 0.025 % (0.035 1 drp ophthalmic (eye) BID PRN itch 12/26/21 04/11/22 %) eye drops loratadine 10 mg tablet 1 tab PO DAILY 12/26/21 04/11/22 mepolizumab 100 mg/mL subcutaneous 100 mg subcut Q4W 12/26/21 04/11/22 auto-injector (Nucala) montelukast 10 mg tablet 1 tab PO BEDTIME 12/26/21 04/11/22 omeprazole 40 mg capsule,delayed 1 cap PO DAILY@0630 12/26/21 04/11/22 release tiotropium bromide 1.25 2 puff PO DAILY 12/26/21 04/11/22 mcg/actuation mist for inhalation (Spiriva Respimat) ipratropium 20 mcg-albuterol 100 1 puff inhalation QID 01/01/22 04/11/22 mcg/actuation mist for inhalation (Combivent Respimat) bupropion HCl 150 mg 24 hr tablet, 1 tab PO QAM 04/11/22 04/11/22 extended release naltrexone 50 mg tablet 1 tab PO DAILY 04/11/22 04/11/22 Previous Rx's Medication Instructions Recorded apixaban 5 mg (74 tabs) tablets in 5 mg PO BID #74 ea 06/04/22 a dose pack (Eliquis DVT-PE Treat 30D Start) nitrofurantoin macrocrystal 100 mg 100 mg PO Q12H 7 days #14 caps 06/04/22 capsule (Macrodantin) Allergies Allergy/AdvReac Type Severity Reaction Status Date / Time latex [Latex] Allergy Mild UNKNOWN Verified 04/11/22 09:10 cats, pollen, mold Allergy Unknown Unknown Uncoded 04/11/22 09:10 Latex Allergy Unknown Unknown Uncoded 04/11/22 09:10 Review of Systems Review of Systems: Constitutional: No Fever, No Chills ENT/Mouth: No Hoarseness, No sore throat, No Rhinorrhea Eyes: No Redness, No Discharge, No Vision Changes Cardiovascular: Positive Chest Pain, positive SOB, positive Dyspnea on Exertion, No Edema Respiratory: positive Cough, No Sputum, positive Wheezing, Gastrointestinal: No Nausea, No Vomiting, No Diarrhea, No abdominal Pain Genitourinary: No Dysuria, No Hematuria Musculoskeletal: No joint pain, No Myalgias Skin: No rash Neuro: No Weakness, No Numbness, No Headache Psych: No anxiety, depression Heme/Lymph: No Bruising, No Bleeding Endocrine: No Polyuria, No Polydipsia Yes all other systems are reviewed and are negative [facility]LY [facility] Past Medical History Attestation statement: The following information was validated with the patient. Source: old records reviewed Medical History Asthma COPD (chronic obstructive pulmonary disease) Pulmonary cavitary lesion Pulmonary cavitary lesion Surgical History H/O gastric sleeve History of ankle surgery History of knee replacement History of partial hysterectomy History of surgery on wrist Family History Family History Father Prostate cancer Social History Social History Household Members: Spouse and Family Housing: House Are you a primary healthcare advisory services manager to a significant other at home: Yes (mother) Do you presently have visiting nurse or other home services: Yes Alcohol intake: never Patient Tobacco Use Status: Never used Tobacco Advance Directives: Yes Advance Directives Information Provided: No Advance Directives on File: No Advance Directives Date on File: 12/26/21 service: No Current occupational status: disabled Physical Exam Vital Signs: Vital Signs: Last Vital Signs Temp 97.0 F 06/04/22 19:23 Pulse 67 06/04/22 19:23 Resp 18 06/04/22 19:23 BP 142/73 H 06/04/22 19:23 Pulse Ox 98 06/04/22 19:23 O2 Del Method 06/04/22 19:23 BMI result Body Mass Index 36.2 Appearance: Alert. Oriented X3. Mild acute distress. Eyes: Pupils equal, round and reactive to light. Sclera nonicteric. ENT: Pharynx normal. Moist mucous membranes. Neck: Normal inspection. Neck supple. No vertebral tenderness or step-offs. No tracheal stridor. CVS: Normal heart rate and rhythm. Pulses normal. Respiratory: Tachypneic. Irregular RR . Lung sounds clear to auscultation all lobes. Abdomen: Soft and nontender. Skin: Skin warm and dry. Normal skin color. Normal skin turgor. Extremities: No lower extremity edema. Was all extremities against resistance. Gait not assessed for safety. Neuro: No motor deficit. No sensory deficit. Cranial nerves 2-12 intact Course Course Course Narrative: 52-year-old female presents via EMS for evaluation for asthma symptoms. She was given 2 albuterol treatments and some IM steroids while at her pulmonary physician's office. At the time of my evaluation, patient has abnormal respiration rate, 22-24 with and almost gulping air respiratory pattern. Her O2 sat does drop to 91-93% while she is speaking. Her lung sounds are clear, and is able to speak in complete sentences. However patient states to have had shortness of breath over the past 4 days, and some burning across her chest. Patient does not fully meet wells PE criteria, as she is not tachycardic, does not have edema, I feel that her abnormal respirations and O2 sat at 91-93% while speaking needs to be investigated further. Her lung sounds are clear, has been given 2 albuterol treatments with steroids, patient's respiration rate should be even and unlabored at this time. 20:15 discussion with [facility], while PE is not blatant, reading radiologist cannot exclude embolism. Urinalysis is positive for UTI, will treat with Macrobid. For PE, will give Eliquis. I did discuss these findings with the patient, patient understands need for anticoagulation as well as antibiotics. 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 Patient verbalized understanding of and agrees to plan of care discharge home. Verbalizes understanding of signs and symptoms indicating need for emergent intervention. MDM - Asthma Differential Diagnosis Differential diagnosis: Likely Acute exacerbation, PE, Pneumonia, COPD exacerbation, Pulmonary edema systolic, Pulmonary edema dystolic and Pneumothorax Medical Records Attestation: I reviewed the patient's medical records. Lab Data Attestation: I reviewed the patient's lab results. Result diagrams: 06/04/22 17:10 06/04/22 17:10 Labs: Lab Results 06/04/22 06/04/22 06/04/22 Range/Units 17:09 17:10 17:10 WBC 4.5 L (4.8-10.8) X10*3/uL RBC 4.51 (4.20-5.50) X10*6/uL Hgb 11.1 L (12.0-16.0) g/dl Hct 36.3 L (37.0-47.0) % MCV 80.5 (80.0-98.0) fL MCH 24.6 L (27.0-33.0) pg MCHC 30.6 L (31.0-35.0) g/dl RDW 14.6 (11.0-16.0) % Plt Count 276 (160-400) X10*3/uL MPV 10.4 (9.4-12.3) fL Immature Gran % (Auto) 0.2 (0.0-0.4) % Neut % (Auto) 53.5 (45-73) % Lymph % (Auto) 35.6 (20-40) % [place] % (Auto) 8.5 (2-11) % Eos % (Auto) 1.3 (0-4) % Baso % (Auto) 0.9 (0-2) % Lymph # (Auto) 1.6 (1.2-4.9) X10*3/uL [place] # (Auto) 0.4 (0.1-1.2) X10*3/uL Eos # (Auto) 0.1 (0.0-0.4) X10*3/uL Baso # (Auto) 0.0 (0.0-0.2) X10*3/uL Abs Immat Gran (auto) 0.01 (0.00-0.03) X10*3/uL Absolute Neuts (auto) 2.4 (2.0-8.3) x10*3/uL Absolute Nucleated RBC 0.000 (0.0-0.012) X10*3/uL Nucleated RBC % (auto) 0.0 (0.0-0.2) /100WBC PT 10.9 (10.0-13.1) SEC INR 1.0 (0.9-1.1) APTT 36.0 (26.0-36.4) SEC Sodium (135-145) mmol/L Potassium (3.3-5.1) mmol/L Chloride (96-108) mmol/L Carbon Dioxide (22-29) mmol/L Anion Gap (12-20) BUN (9-16) mg/dL Creatinine (0.5-1.4) mg/dL Estim Creat Clear Calc Estimated GFR Random Glucose (60-115) mg/dL Calcium (8.4-10.2) mg/dL Magnesium (1.6-2.6) mg/dL Troponin I High Sens (<3.5-17.0) ng/L B-Natriuretic Peptide (<100) pg/mL Urine Color Urine Appearance Urine pH (5.0-9.0) Ur Specific [place] (1.005-1.025) Urine Protein (Neg-Trace) mg/dL Urine Glucose (UA) (Negative) mg/dL Urine Ketones (Negative) mg/dL Urine Blood (Negative) Urine Nitrite (Negative) Ur Leukocyte Esterase (Negative) Urine RBC (0-2) /HPF Urine WBC (0-5) /HPF Ur Squamous Epith Cells (0-2) /HPF Urine Bacteria (None Seen) Hyaline Casts (0-2) /LPF Influenza Type A (PCR) NEGATIVE (Negative) Influenza Type B (PCR) NEGATIVE (Negative) RSV RNA Qual (PCR) NEGATIVE (Negative) SARS-CoV-2 RNA (RT-PCR) NEGATIVE (Negative) 06/04/22 06/04/22 06/04/22 Range/Units 17:10 17:10 19:26 WBC (4.8-10.8) X10*3/uL RBC (4.20-5.50) X10*6/uL Hgb (12.0-16.0) g/dl Hct (37.0-47.0) % MCV (80.0-98.0) fL MCH (27.0-33.0) pg MCHC (31.0-35.0) g/dl RDW (11.0-16.0) % Plt Count (160-400) X10*3/uL MPV (9.4-12.3) fL Immature Gran % (Auto) (0.0-0.4) % Neut % (Auto) (45-73) % Lymph % (Auto) (20-40) % [place] % (Auto) (2-11) % Eos % (Auto) (0-4) % Baso % (Auto) (0-2) % Lymph # (Auto) (1.2-4.9) X10*3/uL [place] # (Auto) (0.1-1.2) X10*3/uL Eos # (Auto) (0.0-0.4) X10*3/uL Baso # (Auto) (0.0-0.2) X10*3/uL Abs Immat Gran (auto) (0.00-0.03) X10*3/uL Absolute Neuts (auto) (2.0-8.3) x10*3/uL Absolute Nucleated RBC (0.0-0.012) X10*3/uL Nucleated RBC % (auto) (0.0-0.2) /100WBC PT (10.0-13.1) SEC INR (0.9-1.1) APTT (26.0-36.4) SEC Sodium 140 (135-145) mmol/L Potassium 4.0 (3.3-5.1) mmol/L Chloride 104 (96-108) mmol/L Carbon Dioxide 26 (22-29) mmol/L Anion Gap 14 (12-20) BUN 15 (9-16) mg/dL Creatinine 0.85 (0.5-1.4) mg/dL Estim Creat Clear Calc 75.8 Estimated GFR > 60 Random Glucose 77 (60-115) mg/dL Calcium 8.8 (8.4-10.2) mg/dL Magnesium 1.8 (1.6-2.6) mg/dL Troponin I High Sens < 3.5 (<3.5-17.0) ng/L B-Natriuretic Peptide 55 (<100) pg/mL Urine Color Yellow Urine Appearance Cloudy Urine pH 7.5 (5.0-9.0) Ur Specific [place] 1.020 (1.005-1.025) Urine Protein Trace (Neg-Trace) mg/dL Urine Glucose (UA) Negative (Negative) mg/dL Urine Ketones Trace (Negative) mg/dL Urine Blood Negative (Negative) Urine Nitrite Negative (Negative) Ur Leukocyte Esterase Trace H (Negative) Urine RBC 0-2 (0-2) /HPF Urine WBC 0-5 (0-5) /HPF Ur Squamous Epith Cells 0-2 (0-2) /HPF Urine Bacteria None Seen (None Seen) Hyaline Casts 0-2 (0-2) /LPF Influenza Type A (PCR) (Negative) Influenza Type B (PCR) (Negative) RSV RNA Qual (PCR) (Negative) SARS-CoV-2 RNA (RT-PCR) (Negative) Imaging Data CT PE: Attestation: I personally reviewed and interpreted this imaging study as follows: Radiologist's impression: FINDINGS: QUALITY OF STUDY/CONTRAST BOLUS: Satisfactory. PULMONARY ARTERIES: There is some limitation here from patient body habitus. I cannot exclude a small filling defect in upper lobe segmental artery on image 154 of series 9 though this could be artifactual. The thoracic inlet is within normal limits. Partially visualized upper abdominal structures are comparable to previous. Centrally there is no bulky adenopathy. The hilar structures are comparable. Imaging of the lung abrams. Right lung; Continued resolution of opacity in the right upper lung. Mild residual is present. Measures 6 mm. There is no effusion. No acute infiltrate. New small 3 mm nodule on image 280 of series 9. Left lung; No significant infiltrate or effusion. Chronic medial basilar lung markings. There is no bowing of the septum. No reflux into the hepatic veins. Review of the bone windows does not demonstrate suspicious bony finding. Degenerative change. CT/CT angio chest PE protocol IMPRESSION: Findings as described above. I cannot exclude a small filling defect in the right upper lobe pulmonary artery as described though this could represent artifact. ? There is no acute infiltrate or effusion. ? Continued decrease opacity in the right upper lung but there is a small new nodular density in the right upper lung. Attention to follow-up. ? VTE: positive ? This critical result was discussed with Lacie Marley at 8:21 PM on 06/04/2022 and it was ascertained that the content and urgency of the report was understood at the time of direct communication. ? Chest x-ray: Attestation: I personally reviewed and interpreted this imaging study as follows: Radiologist's impression: EXAMINATION: XR CHEST CLINICAL INFORMATION: Shortness of breath COMPARISON: Chest CT on 02/04/2022 TECHNIQUE: Frontal view of the chest was obtained. FINDINGS: No significant abnormality is noted involving the heart, lungs, mediastinum, bony thorax or soft tissues. XR/XR chest 1V IMPRESSION: Unremarkable examination. ECG Data Attestation: I personally reviewed and interpreted this ECG as follows: ECG interpretation date: 06/04/22 ECG interpretation time: 16:43 Prior ECG tracings: available for review Interpretation: Vent. rate 55 BPM [place] interval 170 ms QRS duration 82 ms QT/QTc 440/420 ms P-R-T axes 38 21 28 Sinus bradycardia with sinus arrhythmia Otherwise normal ECG When compared with ECG of 01-JAN-2022 18:48, No significant change was found Discharge Plan Discharge Clinical Impression: Pulmonary embolism, Urinary tract infection Patient Disposition: Home, Self-Care Instructions: Urinary Tract Infection in Women (ED), Deep Vein Thrombosis (ED), Blood Thinners (ED) Additional Instructions: You were evaluated for shortness of breath. CT scan of chest indicates possibility of a pulmonary embolism. Take Eliquis 10 mg every 12 hours for 7 days, then Eliquis 5 mg every 12 hours daily. Follow-up with Pulmonary. Urinalysis is positive for UTI. Take Macrobid 100 mg twice a day for the next 7 days. drink plenty of fluids. Thank you for choosing this emergency department for evaluation. Please follow-up with primary care physician as needed. Return to the emergency department for any new, concerning, or worsening symptoms. Prescriptions: New Eliquis DVT-PE Treat 30D Start 5 mg (74 tabs) tablets,dose pack 5 mg PO BID Qty: 74 0RF nitrofurantoin macrocrystal [Macrodantin] 100 mg capsule 100 mg PO Q12H 7 Days Qty: 14 0RF Rx Instructions: must administer with a meal/food No Action Combivent Respimat 20-100 mcg/actuation mist 1 puff inhalation QID naltrexone 50 mg tablet 1 tab PO DAILY bupropion HCl 150 mg tablet extended release 24 hr 1 tab PO QAM ketotifen fumarate 0.025 % (0.035 %) drops 1 drp ophthalmic (eye) BID PRN (Reason: itch) omeprazole 40 mg capsule,delayed release(DR/EC) 1 cap PO DAILY@0630 montelukast 10 mg tablet 1 tab PO BEDTIME hydroxyzine HCl 25 mg tablet 1 tab PO Q8H PRN (Reason: itch) azelastine 137 mcg (0.1 %) aerosol,spray 2 spray intranasal BID ibuprofen 600 mg tablet 1 tab PO Q8H PRN (Reason: pain) loratadine 10 mg tablet 1 tab PO DAILY ipratropium bromide 0.02 % solution 2.5 ml inhalation QID PRN (Reason: wheezing) calcium citrate 200 mg (950 mg) tablet 1 tab PO DAILY Advair HFA 230-21 mcg/actuation HFA aerosol inhaler 1 puff inhalation BID cholecalciferol (vitamin D3) 25 mcg (1,000 unit) tablet 1 tab PO DAILY Spiriva Respimat 1.25 mcg/actuation mist 2 puff PO DAILY Nucala 100 mg/mL auto-injector 100 mg subcut Q4W Referrals: Khadar Parker MD [Physician] - 1 week (pe ) Kenyon,Gt B III, MD [Primary Care Provider] - 1 week (pe) Interventions: ED Discharge Assessment Last Done: 06/04/22 21:09 Discharge Date/Time: 06/04/22 21:14
--- NOTE | 2022-06-04 16:12 | ECG_ITS ---
Test Reason : ASTHMA Blood Pressure : / mmHG Vent. Rate : 055 BPM Atrial Rate : 055 BPM P-R Int : 170 ms QRS Dur : 082 ms QT Int : 440 ms P-R-T Axes : 038 021 028 degrees QTc Int : 420 ms Sinus bradycardia with sinus arrhythmia Otherwise normal ECG When compared with ECG of 01-JAN-2022 18:48, No significant change was found Referred By: Estella Orellana Electronically Signed By:AMANDO SOLOMON MD
[2022-06-04 16:35] VITALS: BP 137/87; PULSE 68; RESP 20; TEMP 36.4; O2SAT 100
[2022-06-04 17:14] LABS: MANUAL DIFF FLAG NO
[2022-06-04 17:19] LABS: Basophils Percent Auto 0.9 % (0-2); Eosinophils Absolute Auto 0.1 X10*3/uL (0.0-0.4); Eosinophils Percent Auto 1.3 % (0-4); Hematocrit 36.3 % (37.0-47.0); Hemoglobin 11.1 g/dl (12.0-16.0); Imm Gran Abs Auto 0.01 X10*3/uL (0.00-0.03); Imm Gran Pct Auto 0.2 % (0.0-0.4); Lymphocytes Absolute Auto 1.6 X10*3/uL (1.2-4.9); Lymphocytes Percent Auto 35.6 % (20-40); Mean Corpuscular HGB Conc 30.6 g/dl (31.0-35.0); Mean Corpuscular Hemoglobin 24.6 pg (27.0-33.0); Mean Corpuscular Volume 80.5 fL (80.0-98.0); Mean Platelet Volume 10.4 fL (9.4-12.3); Monocytes Absolute Auto 0.4 X10*3/uL (0.1-1.2); Monocytes Percent Auto 8.5 % (2-11); Neutrophils Absolute Auto 2.4 x10*3/uL (2.0-8.3); Neutrophils Percent Auto 53.5 % (45-73); Platelet Count 276 X10*3/uL (160-400); Red Blood Count 4.51 X10*6/uL (4.20-5.50); Red Cell Distribution Width 14.6 % (11.0-16.0); White Blood Count 4.5 X10*3/uL (4.8-10.8)
[2022-06-04 17:35] LABS: Anion Gap 14 (12-20); Blood Urea Nitrogen 15 mg/dL (9-16); Calcium 8.8 mg/dL (8.4-10.2); Carbon Dioxide 26 mmol/L (22-29); Chloride 104 mmol/L (96-108); Creatinine Clr Calc Pharmacy 75.8; Estimated Glomerular Filt Rate > 60; Glucose Random 77 mg/dL (60-115); Magnesium 1.8 mg/dL (1.6-2.6); Sodium 140 mmol/L (135-145)
[2022-06-04 17:41] LABS: B Type Natriuretic Peptide 55 pg/mL (<100); Troponin-I High Sensitivity < 3.5 ng/L (<3.5-17.0)
[2022-06-04 17:55] LABS: Influenza A PCR NEGATIVE (Negative); Influenza B PCR NEGATIVE (Negative); Resp Syncy Virus RNA Qual PCR NEGATIVE (Negative); SARS COV2 PCR INHOUSE NEGATIVE (Negative)
[2022-06-04] MEDS: iohexoL 350 MG/ML 100 ML INFUS..BTL IV (18:19)
[2022-06-04 18:21] LABS: Prothrombin Time 10.9 SEC (10.0-13.1)
[2022-06-04] MEDS: Acetaminophen 325 MG TABLET 650 MG PO (18:40)
[2022-06-04 19:23] VITALS: BP 142/73; PULSE 67; RESP 18; TEMP 36.1; O2SAT 98
[2022-06-04 19:32] LABS: Appearance Urine Cloudy; Color Urine Yellow; Glucose Urine UA Negative (Negative); Leukocyte Esterase Urine Trace (Negative); Nitrite Urine Negative (Negative); PH 7.5 (5.0-9.0); UMIC TRIGGER UACC YES; Urine Blood Negative (Negative); Urine Ketones Trace mg/dL (Negative); Urine Protein Trace mg/dL (Neg-Trace)
[2022-06-04 19:35] LABS: Bacteria Urine None Seen (None Seen); Hyaline Casts Urine 0-2 /LPF (0-2); RBC Urine 0-2 /HPF (0-2); Squamous Epithelial Cell Urine 0-2 /HPF (0-2); WBC Urine 0-5 /HPF (0-5)
[2022-06-04] MEDS: Nitrofurantoin Monohyd/M-Cryst 100 MG CAPSULE PO (20:26)
[2022-06-04] MEDS: Apixaban 5 MG TABLET 10 MG PO (20:26)
== END 2022-06-04 21:14 | disposition home or self-care (01) ==
PROVIDERS: Nurse Practitioner Family; Emergency Provider Emergency Medicine; PCP Internal Medicine
DX: I26.99 Other pulmonary embolism without acute cor pulmonale (principal); N39.0 Urinary tract infection, site not specified; J45.909 Unspecified asthma, uncomplicated; R06.02 Shortness of breath; R07.89 Other chest pain; Z20.822 Contact with and (suspected) exposure to COVID-19; Z79.899 Other long term (current) drug therapy
CPT/HCPCS: 0241U; 36415; 71045; 71275; 80048; 81001; 83735; 83880; 84484; 85025; 85610; 85730; 93005; 99284; Q9967

== ENCOUNTER → 2022-06-10 14:35 | Outpatient (BNVA) | payer OTHER, SELFPAY | PROVIDERS: PCP Internal Medicine; Visit Provider Internal Medicine | DX: R06.02 Shortness of breath (principal); I26.99 Other pulmonary embolism without acute cor pulmonale; J44.9 Chronic obstructive pulmonary disease, unspecified; J98.4 Other disorders of lung | CPT/HCPCS: 99212 ==

== ENCOUNTER 2022-06-20 11:48 | Emergency (ER) | payer OTHER, SELFPAY ==
--- NOTE | 2022-06-20 | ECG_ITS ---
Test Reason : sob Blood Pressure : / mmHG Vent. Rate : 062 BPM Atrial Rate : 000 BPM P-R Int : 000 ms QRS Dur : 082 ms QT Int : 422 ms P-R-T Axes : 000 008 008 degrees QTc Int : 428 ms Normal sinus rhythm RSR' or QR pattern in V1 suggests right ventricular conduction delay Abnormal ECG When compared with ECG of 04-JUN-2022 16:43, No significant changes seen Referred By: Generic ED Physician Electronically Signed By:AMANDO SOLOMON MD
--- NOTE | ~2022-06-20 | XR_ITS ---
EXAMINATION: XR CHEST CLINICAL INFORMATION: Shortness breath COMPARISON: June 04, 2022 TECHNIQUE: Frontal view of the chest was obtained. FINDINGS: There is no evidence of acute parenchymal disease, pneumothorax, or pleural effusion. Heart normal size. No evidence of pulmonary edema. Degenerative spurring seen throughout the thoracic spine. Significant degenerative change of the left shoulder is present. XR/XR chest 1V IMPRESSION: No acute parenchymal disease within the chest.
--- NOTE | ~2022-06-20 | CT_ITS ---
EXAMINATION: CT ANGIOGRAM OF THE CHEST WITH AND WITHOUT CONTRAST (CT PULMONARY ANGIOGRAM FOR PE) CLINICAL INFORMATION: Reason for Exam possible PE?, CP COMPARISON: 06/04/2022 TECHNIQUE: Prior to contrast administration, noncontrast localization images were obtained. Subsequently, multidetector volumetric imaging was performed from the thoracic inlet to below the diaphragms following the administration of 75 mL Omnipaque 350 intravenous contrast. No contrast reaction reported Sagittal, coronal, and MIP oblique sagittal reformatted images were obtained on the CT workstation, uploaded to PACS, and reviewed. This CT examination was performed using dose optimization techniques as appropriate, variously including the following: *Automated exposure control *Adjustment of mA and/or kV according to patient size (this includes techniques or standardized protocols for targeted exams where dose is matched to indication/reason for exam; i.e. extremities or head) *Use of iterative reconstruction technique Total exam dose-length product 289 mGy-cm FINDINGS: QUALITY OF STUDY/CONTRAST BOLUS: Unsatisfactory. There is just as much contrast within the aorta as the pulmonary arterial system. There is also motion which degrades imaging. There is no convincing evidence for central embolism. Cannot exclude a peripheral embolism due to technique. The thoracic inlet is felt to be comparable. No bulky central mediastinal adenopathy. Partially visualized upper abdominal structures comparable to previous. Some mild hilar adenopathy left greater than right similar to previous. Imaging lung abrams. Right lung; Stable appearing density in the right upper lung on image 35 measures 5 mm. Some likely chronic change at the right base medially. There is bronchial thickening. Left lung; There is a new opacity at left base. Measures 1.2 cm. Not seen previously. Likely inflammatory. Image 275 of series 7. Bronchial thickening is noted here. Several areas of groundglass patchy opacity on image 223. Largest area measuring 1 cm. These areas are new from previous. Stable appearing small 3 mm density on image 135 of series 7 superior segment left lower lobe. Review of the bone windows does not demonstrate a suspicious finding. CT/CT angio chest PE protocol IMPRESSION: Limited exam due to motion and technique. There is no central embolism. Peripheral embolism cannot be excluded on this study. Examination demonstrating bronchial thickening. Several new areas of opacity compared to study from 06/04/2022 and the left lower lobe and as these have arisen quickly likely inflammatory in origin. Some mild hilar adenopathy which may be reactive. Some stable areas of nodularity in the right lung are noted. Follow-up study is recommended to assess for resolution here. VTE: indeterminate
[2022-06-20 12:34] VITALS: BP 153/62; PULSE 60; RESP 20; TEMP 36.3; O2SAT 99; BMI 35.9
[2022-06-20 13:00] LABS: Basophils Percent Auto 0.7 % (0-2); Eosinophils Percent Auto 0.5 % (0-4); Hematocrit 38.4 % (37.0-47.0); Hemoglobin 11.8 g/dl (12.0-16.0); Imm Gran Abs Auto 0.01 X10*3/uL (0.00-0.03); Imm Gran Pct Auto 0.2 % (0.0-0.4); Lymphocytes Absolute Auto 1.5 X10*3/uL (1.2-4.9); Lymphocytes Percent Auto 25.5 % (20-40); MANUAL DIFF FLAG NO; Mean Corpuscular HGB Conc 30.7 g/dl (31.0-35.0); Mean Corpuscular Hemoglobin 25.1 pg (27.0-33.0); Mean Corpuscular Volume 81.7 fL (80.0-98.0); Mean Platelet Volume 9.9 fL (9.4-12.3); Monocytes Absolute Auto 0.5 X10*3/uL (0.1-1.2); Monocytes Percent Auto 8.3 % (2-11); Neutrophils Absolute Auto 3.9 x10*3/uL (2.0-8.3); Neutrophils Percent Auto 64.8 % (45-73); Platelet Count 272 X10*3/uL (160-400); Red Cell Distribution Width 15.7 % (11.0-16.0); White Blood Count 5.9 X10*3/uL (4.8-10.8)
[2022-06-20 13:07] LABS: D Dimer High Sensitivity 493 NG/ML
[2022-06-20 13:18] LABS: Troponin-I High Sensitivity < 3.5 ng/L (<3.5-17.0)
[2022-06-20 13:20] LABS: Anion Gap 16 (12-20); Blood Urea Nitrogen 17 mg/dL (9-16); Calcium 9.3 mg/dL (8.4-10.2); Carbon Dioxide 24 mmol/L (22-29); Chloride 105 mmol/L (96-108); Creatinine Clr Calc Pharmacy 68.9; Estimated Glomerular Filt Rate > 60; Glucose Random 75 mg/dL (60-115); Potassium 4.4 mmol/L (3.3-5.1); Sodium 141 mmol/L (135-145)
--- NOTE | 2022-06-20 14:46 | ED_ITS ---
HPI - SOB/Dyspnea General Chief Complaint: Dyspnea Stated Complaint: asthma Time Seen by Provider: 06/20/22 14:46 Source: patient Mode of arrival: ambulatory Limitations: no limitations History of Present Illness HPI Narrative: Patient is a 52 year old assigned female at with a history of COPD, as thma, and PE presenting to the emergency department today with worsening SOB and wheezing over the last 3 days. Patient states that over the last 3 days, her breathing has gotten worse and her wheezing has increased. Patient states that she has tried using her inhaler at home and it hasn't helped. Patient denies any dizziness, lightheadedness, abdominal pain, nausea, vomiting, fever, chills, blurry vision, double vision, loss of vision, chest pain, back pain, night sweats, pain with urination, increased urinary frequency, increased urinary urgency, blood in her urine or stool, syncope or a near syncopal episode, recent trauma or falls, bowel incontinence, bladder incontinence, bowel retention, bladder retention, or any other complaints at this time. MD elicited complaint: shortness of breath and chest pain Pertinent past history: COPD, asthma and PE (Diagnosed 3weeks ago) Onset (ago): day(s) (3 ) Known history of: COPD, asthma and PE Associated symptoms: denies other symptoms Treatment prior to arrival: bronchodilator Related Data Home oxygen amount: none Home Medications Medication Instructions Recorded Confirmed azelastine 137 mcg (0.1 %) nasal 2 spray intranasal BID 12/26/21 04/11/22 spray aerosol calcium citrate 200 mg (950 mg) 1 tab PO DAILY 12/26/21 04/11/22 tablet cholecalciferol (vitamin D3) 25 1 tab PO DAILY 12/26/21 04/11/22 mcg (1,000 unit) tablet fluticasone propionate 230 1 puff inhalation BID 12/26/21 04/11/22 mcg-salmeterol 21 mcg/actuation HFA inhaler (Advair HFA) hydroxyzine HCl 25 mg tablet 1 tab PO Q8H PRN itch 12/26/21 04/11/22 ipratropium bromide 0.02 % 2.5 ml inhalation QID PRN wheezing 12/26/21 04/11/22 solution for inhalation ketotifen fumarate 0.025 % (0.035 1 drp ophthalmic (eye) BID PRN itch 12/26/21 04/11/22 %) eye drops loratadine 10 mg tablet 1 tab PO DAILY 12/26/21 04/11/22 mepolizumab 100 mg/mL subcutaneous 100 mg subcut Q4W 12/26/21 04/11/22 auto-injector (Nucala) montelukast 10 mg tablet 1 tab PO BEDTIME 12/26/21 04/11/22 omeprazole 40 mg capsule,delayed 1 cap PO DAILY@0630 12/26/21 04/11/22 release tiotropium bromide 1.25 2 puff PO DAILY 12/26/21 04/11/22 mcg/actuation mist for inhalation (Spiriva Respimat) ipratropium 20 mcg-albuterol 100 1 puff inhalation QID 01/01/22 04/11/22 mcg/actuation mist for inhalation (Combivent Respimat) bupropion HCl 150 mg 24 hr tablet, 1 tab PO QAM 04/11/22 04/11/22 extended release naltrexone 50 mg tablet 1 tab PO DAILY 04/11/22 04/11/22 ibuprofen 800 mg tablet 800 mg PO TID 06/10/22 Previous Rx's Medication Instructions Recorded apixaban 5 mg (74 tabs) tablets in 5 mg PO BID #74 ea 06/04/22 a dose pack ([employer] DVT-PE Treat 30D Start) nitrofurantoin macrocrystal 100 mg 100 mg PO Q12H 7 days #14 caps 06/04/22 capsule (Macrodantin) doxycycline hyclate 100 mg tablet 100 mg PO BID 7 days #14 tabs 06/20/22 prednisone 20 mg tablet 20 mg PO DAILY 12 days #26 tabs 06/20/22 Allergies Allergy/AdvReac Type Severity Reaction Status Date / Time latex [Latex] Allergy Mild UNKNOWN Verified 06/10/22 15:26 cats, pollen, mold Allergy Unknown Unknown Uncoded 06/10/22 15:26 Latex Allergy Unknown Unknown Uncoded 06/10/22 15:26 Review of Systems Constitutional: Constitutional: Reports no additional constitutional complaints, Denies chills, Denies fever(s), Denies headache(s) and Denies night sweats Eyes: Eyes: Reports no additional eye complaints, Denies blurry vision, Denies change in vision, Denies diplopia, Denies eye discharge, Denies loss of vision and Denies eye pain ENT: Reports as per HPI, Denies dizziness and Denies headache(s) Cardiovascular: Cardiovascular: Reports no additional cardiovascular complaints, Reports chest pain, Reports lightheadedness and Reports dyspnea Respiratory: Respiratory: Reports no additional respiratory complaints and Reports dyspnea Gastrointestinal: Gastrointestinal: Denies as per HPI, Reports no additional gastrointestinal complaints and Denies abdominal pain Genitourinary: Genitourinary: Reports no additional female genitourinary complaints Musculoskeletal: Musculoskeletal: Reports no additional musculoskeletal complaints, Reports as per HPI, Denies numbness and Denies tingling Integumentary/Breasts: Skin/Breast: Reports system reviewed and no additional complaints, except as docu and Reports as per HPI Neurologic: Denies dizziness, Denies headache(s), Denies loss of vision, Denies numbness and Denies tingling Psychiatric: Psychiatric: Reports no additional psychiatric complaints Endocrine: Endocrine: Reports no additional endocrine complaints Hematologic/Lymphatic: Hematologic/Lymphatic: Reports no additional hematol ogic/lymphatic complaints Allergic/Immunologic: Allergic/Immunologic: Reports no additional allergic/immunologic complaints [facility] Past Medical History Attestation statement: The following information was validated with the patient. Source: old records reviewed Medical History Asthma COPD (chronic obstructive pulmonary disease) Pulmonary cavitary lesion Pulmonary cavitary lesion Pulmonary embolism Surgical History H/O gastric sleeve History of ankle surgery History of knee replacement History of partial hysterectomy History of surgery on wrist Family History Family History Father Prostate cancer Social History Social History Household Members: Spouse and Family Housing: House Are you a primary outdoor emergency care technician to a significant other at home: Yes (mother) Do you presently have visiting nurse or other home services: Yes Alcohol intake: never Patient Tobacco Use Status: Never used Tobacco Advance Directives: Yes Advance Directives on File: Yes Advance Directives Date on File: 12/26/21 service: No Current occupational status: disabled Physical Exam Vital Signs: Vital Signs: Last Vital Signs Temp 97.5 F 06/20/22 18:34 Pulse 69 06/20/22 18:34 Resp 18 06/20/22 18:34 BP 138/52 L 06/20/22 18:34 Pulse Ox 95 06/20/22 18:34 O2 Del Method 06/20/22 18:34 BMI result Body Mass Index 35.9 Const: General: cooperative, healthy appearing, no acute distress, alert, awake and Physically active Nutritional Appearance: well nourished Orientation/consciousness: patient oriented x3 Limitations: no limitations HEENT: Head: Yes normal to inspection and Yes atraumatic Ears: hearing grossly normal bilaterally and external ears normal General nose exam: Normal external nose present, no nasal discharge noted and no epistaxis Face and sinus: Yes normal facial exam, No abrasion and No laceration Mouth: Normal oral and palatal mucosa present, no drooling and no muffled voice Eyes: General: appearance normal, both eyes and all related structures P eriorbital: periorbital findings normal Eyelids: Yes eyelids normal Conjunctivae: conjunctivae normal Pupils: Equal, round and reactive pupils present EOM: EOMs intact bilaterally Neck: Neck: Yes normal visual inspection, Yes full ROM and Yes no lymphadenopathy Chest: Chest palpation & inspection: normal inspection of the chest Resp: Effort & Inspection: normal respiratory effort and able to speak in complete sentences Auscultation: wheezes throughout Cardio: Rate: regular rate Rhythm: regular rhythm Heart sounds: S1 normal heart sound present GI: Inspection: Yes normal to inspection : General: Yes no CVA tenderness Back/Spine/Pelvis: Back: no CVA tenderness Neuro: General: patient oriented x3 and moves all extremities Cranial nerves: Yes Equal, round and reactive pupils present Cognition (Neuro): no rmal cognition Motor exam (neuro): 5/5 motor strength present throughout Sensory Exam: Normal double simultaneous stimulation for sensation Coordination: [id number] test normal Extrem: General: Yes normal to inspection, Yes full ROM and Yes capillary refill normal Psych: Appearance: grossly normal Mental Status: mental status grossly normal Affect: normal affect Attitude: cooperative Thought process: Normal thought process present Thought content: Normal thought content present Insight: Good insight present (Psych) MDM - SOB/Dyspnea MDM Narrative Medical decision making narrative: Patient is a 52 year old assigned female at with a history of PE on anti- coagulation medication, asthma, and COPD presenting to the emergency department today with increased shortness of breath. Patient's physical exam showed wheezing throughout all lung abrams. Patient's blood work showed an elevated D dimer of 493. Patient's EKG was unremarkable. Patient's chest x-ray showed no acute process. Patient's CT PE showed bronchial thickening and several new areas of opacity consistent with an inflammatory process. Patient's clinical presentation is most consistent with an asthma exacerbation. Patient is not suspected to be septic. I explained my physical exam findings as well as all test results to the patient. I answered all questions asked by the patient. Patient received IV Solu-Medrol and a duoneb treatment which she stated helped her symptoms significantly. I stressed the importance of the patient taking her medication as prescribed. I stressed the importance of the patient following up with her primary care provider. I stressed the importance of the patient returning to the emergency department immediately if her symptoms were to worsen or if she were to develop any dizziness, shortness of breath, difficulty breathing, chest pain, blurry vision, loss of vision, nausea, vomiting, abdominal pain, fever, chills, back pain, or any other complaints. Patient verbalized agreement and understanding with this treatment plan and discharge. Medical Records Attestation: I reviewed the patient's medical records. Lab Data Attestation: I reviewed the patient's lab results. Result diagrams: 06/20/22 12:55 06/20/22 12:55 Labs: Lab Results 06/20/22 06/20/22 06/20/22 Range/Units 12:55 12:55 12:55 WBC 5.9 (4.8-10.8) X10*3/uL RBC 4.70 (4.20-5.50) X10*6/uL Hgb 11.8 L (12.0-16.0) g/dl Hct 38.4 (37.0-47.0) % MCV 81.7 (80.0-98.0) fL MCH 25.1 L (27.0-33.0) pg MCHC 30.7 L (31.0-35.0) g/dl RDW 15.7 (11.0-16.0) % Plt Count 272 (160-400) X10*3/uL MPV 9.9 (9.4-12.3) fL Immature Gran % (Auto) 0.2 (0.0-0.4) % Neut % (Auto) 64.8 (45-73) % Lymph % (Auto) 25.5 (20-40) % [place] % (Auto) 8.3 (2-11) % Eos % (Auto) 0.5 (0-4) % Baso % (Auto) 0.7 (0-2) % Lymph # (Auto) 1.5 (1.2-4.9) X10*3/uL [place] # (Auto) 0.5 (0.1-1.2) X10*3/uL Eos # (Auto) 0.0 (0.0-0.4) X10*3/uL Baso # (Auto) 0.0 (0.0-0.2) X10*3/uL Abs Immat Gran (auto) 0.01 (0.00-0.03) X10*3/uL Absolute Neuts (auto) 3.9 (2.0-8.3) x10*3/uL Absolute Nucleated RBC 0.000 (0.0-0.012) X10*3/uL Nucleated RBC % (auto) 0.0 (0.0-0.2) /100WBC D-Dimer High Sensitivty 493 NG/ML Sodium 141 (135-145) mmol/L Potassium 4.4 (3.3-5.1) mmol/L Chloride 105 (96-108) mmol/L Carbon Dioxide 24 (22-29) mmol/L Anion Gap 16 (12-20) BUN 17 H (9-16) mg/dL Creatinine 0.93 (0.5-1.4) mg/dL Estim Creat Clear Calc 68.9 Estimated GFR > 60 Random Glucose 75 (60-115) mg/dL Calcium 9.3 (8.4-10.2) mg/dL Troponin I High Sens (<3.5-17.0) ng/L Influenza Type A (PCR) (Negative) Influenza Type B (PCR) (Negative) RSV RNA Qual (PCR) (Negative) SARS-CoV-2 RNA (RT-PCR) (Negative) 06/20/22 06/20/22 Range/Units 12:55 18:34 WBC (4.8-10.8) X10*3/uL RBC (4.20-5.50) X10*6/uL Hgb (12.0-16.0) g/dl Hct (37.0-47.0) % MCV (80.0-98.0) fL MCH (27.0-33.0) pg MCHC (31.0-35.0) g/dl RDW (11.0-16.0) % Plt Count (160-400) X10*3/uL MPV (9.4-12.3) fL Immature Gran % (Auto) (0.0-0.4) % Neut % (Auto) (45-73) % Lymph % (Auto) (20-40) % [place] % (Auto) (2-11) % Eos % (Auto) (0-4) % Baso % (Auto) (0-2) % Lymph # (Auto) (1.2-4.9) X10*3/uL [place] # (Auto) (0.1-1.2) X10*3/uL Eos # (Auto) (0.0-0.4) X10*3/uL Baso # (Auto) (0.0-0.2) X10*3/uL Abs Immat Gran (auto) (0.00-0.03) X10*3/uL Absolute Neuts (auto) (2.0-8.3) x10*3/uL Absolute Nucleated RBC (0.0-0.012) X10*3/uL Nucleated RBC % (auto) (0.0-0.2) /100WBC D-Dimer High Sensitivty NG/ML Sodium (135-145) mmol/L Potassium (3.3-5.1) mmol/L Chloride (96-108) mmol/L Carbon Dioxide (22-29) mmol/L Anion Gap (12-20) BUN (9-16) mg/dL Creatinine (0.5-1.4) mg/dL Estim Creat Clear Calc Estimated GFR Random Glucose (60-115) mg/dL Calcium (8.4-10.2) mg/dL Troponin I High Sens < 3.5 (<3.5-17.0) ng/L Influenza Type A (PCR) NEGATIVE (Negative) Influenza Type B (PCR) NEGATIVE (Negative) RSV RNA Qual (PCR) NEGATIVE (Negative) SARS-CoV-2 RNA (RT-PCR) NEGATIVE (Negative) Imaging Data Chest x-ray: Attestation: I personally reviewed and interpreted this imaging study as follows: My impression: No acute process. Radiologist's impression: EXAMINATION: XR CHEST CLINICAL INFORMATION: Shortness breath COMPARISON: June 04, 2022 TECHNIQUE: Frontal view of the chest was obtained. FINDINGS: There is no evidence of acute parenchymal disease, pneumothorax, or pleural effusion. Heart normal size. No evidence of pulmonary edema. Degenerative spurring seen throughout the thoracic spine. Significant degenerative change of the left shoulder is present. XR/XR chest 1V IMPRESSION: No acute parenchymal disease within the chest. Dictated By: Uri Eugene MD Signed By: Electronically signed by Uri Eugene MD 06/20/[address] scan - chest: Attestation: I personally reviewed and interpreted this imaging study as follows: My impression: Evolving opacities. Radiologist's impression: EXAMINATION: CT ANGIOGRAM OF THE CHEST WITH AND WITHOUT CONTRAST (CT PULMONARY ANGIOGRAM FOR PE) CLINICAL INFORMATION: Reason for Exam possible PE?, CP COMPARISON: 06/04/2022? TECHNIQUE: Prior to contrast administration, noncontrast localization images were obtained. ? Subsequently, multidetector volumetric imaging was performed from the thoracic inlet to below the diaphragms following the administration of 75 mL Omnipaque 350 intravenous contrast. No contrast reaction reported Sagittal, coronal, and MIP oblique sagittal reformatted images were obtained on the CT workstation, uploaded to PACS, and reviewed. This CT examination was performed using dose optimization techniques as appropriate, variously including the following: *Automated exposure control *Adjustment of mA and/or kV according to patient size (this includes techniques or standardized protocols for targeted exams where dose is matched to indication/reason for exam; i.e. extremities or head) *Use of iterative reconstruction technique Total exam dose-length product 289 mGy-cm FINDINGS: QUALITY OF STUDY/CONTRAST BOLUS: Unsatisfactory. There is just as much contrast within the aorta as the pulmonary arterial system. There is also motion which degrades imaging. There is no convincing evidence for central embolism. Cannot exclude a peripheral embolism due to technique. The thoracic inlet is felt to be comparable. No bulky central mediastinal adenopathy. Partially visualized upper abdominal structures comparable to previous. Some mild hilar adenopathy left greater than right similar to previous. Imaging lung abrams. Right lung; Stable appearing density in the right upper lung on image 35 measures 5 mm. Some likely chronic change at the right base medially. There is bronchial thickening. Left lung; There is a new opacity at left base. Measures 1.2 cm. Not seen previously. Likely inflammatory. Image 275 of series 7. Bronchial thickening is noted here. Several areas of groundglass patchy opacity on image 223. Largest area measuring 1 cm. These areas are new from previous. Stable appearing small 3 mm density on image 135 of series 7 superior segment left lower lobe. Review of the bone windows does not demonstrate a suspicious finding. CT/CT angio chest PE protocol IMPRESSION: Limited exam due to motion and technique. There is no central embolism. Peripheral embolism cannot be excluded on this study. ? Examination demonstrating bronchial thickening. Several new areas of opacity compared to study from 06/04/2022 and the left lower lobe and as these have arisen quickly likely inflammatory in origin. Some mild hilar adenopathy which may be reactive. ? Some stable areas of nodularity in the right lung are noted. ? Follow-up study is recommended to assess for resolution here. VTE: indeterminate Dictated By: Kraig Lopez MD Signed By: Electronically signed by Kraig Lopez MD 06/20/22 1745 ECG Data Attestation: I personally reviewed and interpreted this ECG as follows: ECG interpretation date: 06/20/22 ECG interpretation time: 17:28 Prior ECG tracings: available for review Interpretation: Vent. Rate: 062 BPM ? ? Atrial Rate: 000 BPM P-R Int: 000 ms? QRS Dur: 082 ms QT Int: 422 ms ? ? ? P-R-T Axes: 000 008 008 degrees QTc Int: 428 ms ? Normal sinus rhythm RSR' or QR pattern in V1 suggests right ventricular conduction delay Abnormal ECG When compared with ECG of 04-JUN-2022 16:43, No significant changes seen ? Electronically Signed By:AMANDO SOLOMON MD Dictated By: Conor Solomon MD Signed By: Electronically signed by Conor Solomon MD 06/20/22 1728 Critical Care Time Critical Care Time Critical Care Time: Yes Total Critical Care Time: 30 Attestation: I spent 30 minutes of Critical Care Time with this patient. This does not include time spent on separately reported billable procedures. Discharge Plan Discharge Clinical Impression: Asthma exacerbation Patient Disposition: Home, Self-Care Instructions: Asthma (ED) Additional Instructions: Follow up with your primary care provider. Return to the emergency department immediately if your symptoms worsen or if you develop any dizziness, shortness of breath, difficulty breathing, chest pain, blurry vision, loss of vision, nausea, vomiting, abdominal pain, fever, chills, back pain, or any other complaints. Prescriptions: New prednisone 20 mg tablet 20 mg PO DAILY 12 Days Qty: 26 0RF Rx Instructions: Take 3 tablets for 5 days THEN; Take 2 tablets for 4 days THEN; Take 1 tablet for 3 days doxycycline hyclate 100 mg tablet 100 mg PO BID 7 Days Qty: 14 0RF No Action Combivent Respimat 20-100 mcg/actuation mist 1 puff inhalation QID naltrexone 50 mg tablet 1 tab PO DAILY bupropion HCl 150 mg tablet extended release 24 hr 1 tab PO QAM ketotifen fumarate 0.025 % (0.035 %) drops 1 drp ophthalmic (eye) BID PRN (Reason: itch) omeprazole 40 mg capsule,delayed release(DR/EC) 1 cap PO DAILY@0630 montelukast 10 mg tablet 1 tab PO BEDTIME hydroxyzine HCl 25 mg tablet 1 tab PO Q8H PRN (Reason: itch) azelastine 137 mcg (0.1 %) aerosol,spray 2 spray intranasal BID loratadine 10 mg tablet 1 tab PO DAILY ipratropium bromide 0.02 % solution 2.5 ml inhalation QID PRN (Reason: wheezing) calcium citrate 200 mg (950 mg) tablet 1 tab PO DAILY Advair HFA 230-21 mcg/actuation HFA aerosol inhaler 1 puff inhalation BID cholecalciferol (vitamin D3) 25 mcg (1,000 unit) tablet 1 tab PO DAILY Spiriva Respimat 1.25 mcg/actuation mist 2 puff PO DAILY Nucala 100 mg/mL auto-injector 100 mg subcut Q4W Eliquis DVT-PE Treat 30D Start 5 mg (74 tabs) tablets,dose pack 5 mg PO BID Qty: 74 0RF nitrofurantoin macrocrystal [Macrodantin] 100 mg capsule 100 mg PO Q12H 7 Days Qty: 14 0RF Rx Instructions: must administer with a meal/food ibuprofen 800 mg tablet 800 mg PO TID Referrals: Gt Prescott III, MD [Primary Care Provider] - Interventions: ED Discharge Assessment Last Done: 06/20/22 19:55 Discharge Date/Time: 06/20/22 19:56 Print Language: Georgian
[2022-06-20 15:19] VITALS: BP 139/71; PULSE 57; RESP 18; O2SAT 99
[2022-06-20] MEDS: methylPREDNISolone Sod Succ 125 MG/2 ML VIAL 60 MG IVPUSH (15:25)
[2022-06-20] MEDS: Albuterol Sulfate 5 MG, Albuterol/Iprat 2.5/0.5MG 3 ML 3 ML INHALE (15:50)
[2022-06-20 15:53] VITALS: PULSE 58; RESP 16; O2SAT 98
[2022-06-20] MEDS: iohexoL 350 MG/ML 100 ML INFUS..BTL IV (17:09)
[2022-06-20 18:34] VITALS: BP 138/52; PULSE 69; RESP 18; TEMP 36.4; O2SAT 95
[2022-06-20 19:23] LABS: Influenza A PCR NEGATIVE (Negative); Influenza B PCR NEGATIVE (Negative); Resp Syncy Virus RNA Qual PCR NEGATIVE (Negative); SARS COV2 PCR INHOUSE NEGATIVE (Negative)
== END 2022-06-20 19:56 | disposition home or self-care (01) ==
PROVIDERS: Physician Assistant Medical; Emergency Provider Emergency Medicine Emergency Medical Services; PCP Internal Medicine
DX: J45.901 Unspecified asthma with (acute) exacerbation (principal); J44.9 Chronic obstructive pulmonary disease, unspecified; R06.02 Shortness of breath; Z20.822 Contact with and (suspected) exposure to COVID-19; Z79.899 Other long term (current) drug therapy
CPT/HCPCS: 0241U; 36415; 71045; 71275; 80048; 84484; 85025; 85379; 93005; 94640; 96374; 99284; 99285; J2930; Q9967

== ENCOUNTER → 2022-07-24 11:15 | Outpatient (BNVA) | payer OTHER, SELFPAY | PROVIDERS: PCP Internal Medicine; Visit Provider Internal Medicine | DX: J44.9 Chronic obstructive pulmonary disease, unspecified (principal); J45.909 Unspecified asthma, uncomplicated; I26.99 Other pulmonary embolism without acute cor pulmonale; J98.4 Other disorders of lung; G47.33 Obstructive sleep apnea (adult) (pediatric) | CPT/HCPCS: 99212 ==

== ENCOUNTER → 2022-10-15 11:05 | Outpatient (BNVA) | payer OTHER, SELFPAY | PROVIDERS: PCP Internal Medicine; Visit Provider Internal Medicine | DX: J44.9 Chronic obstructive pulmonary disease, unspecified (principal); J30.9 Allergic rhinitis, unspecified; I26.99 Other pulmonary embolism without acute cor pulmonale; G47.33 Obstructive sleep apnea (adult) (pediatric); R91.8 Other nonspecific abnormal finding of lung field | CPT/HCPCS: 99212 ==

== ENCOUNTER → 2022-12-09 14:49 | Outpatient (BNVA) | payer OTHER, SELFPAY | PROVIDERS: PCP Internal Medicine; Visit Provider Internal Medicine | DX: J44.9 Chronic obstructive pulmonary disease, unspecified (principal); J40 Bronchitis, not specified as acute or chronic | CPT/HCPCS: 99212 ==

== ENCOUNTER 2022-12-10 07:21 | Outpatient (REF) | payer OTHER, SELFPAY ==
--- NOTE | ~2022-12-10 | CT_ITS ---
EXAMINATION: CT CHEST WITHOUT CONTRAST CLINICAL INFORMATION: Follow-up pulmonary nodules COMPARISON: Previous chest CT most recent May 2022 TECHNIQUE: Multidetector volumetric CT imaging of the chest was done. Axial MIP volume rendering provided. Sagittal and coronal reformatted images were obtained. This CT examination was performed using dose optimization techniques as appropriate, variously including the following: *Automated exposure control *Adjustment of mA and/or kV according to patient size (this includes techniques or standardized protocols for targeted exams where dose is matched to indication/reason for exam; i.e. 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 There is diffuse bronchial wall thickening. There are new smaller clustered peribronchial nodules and areas of increased bronchial attenuation throughout the lungs, for example in the right upper lobe axial image 202 series 5, right middle lobe axial image 282 series 5, right lower lobe axial image 368 series 5 left upper lobe axial image 213 series 5 and left lower lobe axial image 331 series 5. Largest new pulmonary nodule or nodular opacities measure 0.6 x 1.5 cm in the left lower lobe axial image 329 series 5 and 1 cm in the right lower lobe axial image 369 series 5.. There is peripheral scarring or chronic subsegmental atelectasis in both medial lower lobes adjacent to vertebral body bony osteophyte that is stable. There is a 5 mm right upper lobe nodule axial image 139 series 5 that is stable MEDIASTINUM: Small calcified right mediastinal and hilar lymph nodes. Small noncalcified is mediastinal lymph nodes. No enlarged lymph nodes seen. Normal heart size. No pericardial effusion. Normal caliber thoracic aorta. CORONARY ARTERY CALCIFICATION: Mild PLEURA: There is no pleural effusion. No pleural mass or thickening. AXILLA: No chest wall mass or enlarged axillary lymph nodes. UPPER ABDOMEN: Postsurgical changes following gastric sleeve. There may be fatty infiltration of the pancreas. Small right renal stones. Partially identified catheter in the upper midline abdominal wall that is new. OSSEOUS STRUCTURES: Degenerative changes of the spine and shoulders. CT/CT chest wo IV con IMPRESSION: Diffuse bronchial wall thickening. Waxing and waning appearance of pulmonary nodules with multiple new pulmonary nodules and nodular opacities with clustered peribronchial appearance. Waxing and waning appearance is suggestive of an infectious or inflammatory process/airways disease. New catheter in the subcutaneous fat of the upper midline abdominal wall. Fleischner guidelines were followed.
== END 2022-12-10 07:22 | disposition home or self-care (01) ==
LOC: HO.CT 07:21
PROVIDERS: Visit Provider Internal Medicine
DX: J98.4 Other disorders of lung (principal); R91.8 Other nonspecific abnormal finding of lung field
CPT/HCPCS: 71250

== ENCOUNTER → 2023-01-07 10:30 | Outpatient (BNVA) | payer OTHER, SELFPAY | PROVIDERS: PCP Internal Medicine; Visit Provider Internal Medicine | DX: I26.99 Other pulmonary embolism without acute cor pulmonale (principal); J40 Bronchitis, not specified as acute or chronic; J44.9 Chronic obstructive pulmonary disease, unspecified; R91.8 Other nonspecific abnormal finding of lung field; J45.909 Unspecified asthma, uncomplicated; G47.33 Obstructive sleep apnea (adult) (pediatric) | CPT/HCPCS: 99212 ==

== ENCOUNTER → 2023-03-20 09:00 | Outpatient (BNV) | payer OTHER, SELFPAY | PROVIDERS: PCP Internal Medicine; Visit Provider Radiology Diagnostic Radiology | DX: Z12.31 Encounter for screening mammogram for malignant neoplasm of breast (principal) | CPT/HCPCS: 77063; 77067 ==

== ENCOUNTER 2023-03-20 09:01 | Outpatient (REF) | payer OTHER, SELFPAY ==
--- NOTE | ~2023-03-20 | MM_ITS ---
EXAMINATION: MM SCREENING DIGITAL BREAST TOMOSYNTHESIS, BILATERAL CLINICAL INFORMATION: Screening. Asymptomatic. The lifetime risk of breast cancer based on the Tyrer-Cuzick Model is 6%. COMPARISON: Mammography: This study is compared with prior exams dating back to 2018. TECHNIQUE: Digital breast tomosynthesis is performed in both the craniocaudal and mediolateral oblique views along with computer-aided detection (CAD). Synthesized 2D images are generated from the tomosynthesis. FINDINGS: There are scattered areas of fibroglandular density (ACR BI-RADS breast composition Category b). There are no significant masses, abnormal calcifications, or other abnormalities. There is a tissue marker in the medial aspect of the right breast from prior benign percutaneous biopsy. MM/MM tomosynthesis screening BI IMPRESSION: No mammographic evidence of malignancy. ASSESSMENT: BI-RADS BI-RADS 2 - Benign Findings RECOMMENDATION: Routine annual mammography screening. 1 year F/U This examination should not preclude the clinical evaluation of a suspicious palpable abnormality. This patient's information was entered into a reminder system with a target due date for their next mammogram.
== END 2023-03-20 09:02 | disposition home or self-care (01) ==
LOC: HO.MAMMO 09:01
PROVIDERS: PCP Internal Medicine; Visit Provider Internal Medicine
DX: Z12.31 Encounter for screening mammogram for malignant neoplasm of breast (principal)
CPT/HCPCS: 77063; 77067

== ENCOUNTER 2023-05-06 10:20 | Outpatient (AMB) | payer OTHER, SELFPAY ==
--- NOTE | 2023-05-06 10:40 | A.OFFVIS_ITS ---
Intake Vital Signs 05/06/23 10:41 Height 5 ft 1 in Weight 203 lb BMI 38.4 BP 130/74 Blood Pressure Location Lt brachial Position Sitting Pulse 62 Pulse Source Pulse Oximeter Pulse Oximetry (%) 100 Oxygen Delivery Method Room Air Intake Visit Reasons: PE Intake Note: pt is here for follow up and states she is starting with something past few days, asthma feeling. 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: No Allergies latex [Latex] Allergy (Mild, Verified 05/06/23 10:44) UNKNOWN cats, pollen, mold Allergy (Unknown, Uncoded 05/06/23 10:44) Unknown Latex Allergy (Unknown, Uncoded 05/06/23 10:44) Unknown Medication List - Last Reconciled 05/06/23 by Khadar Parker MD azelastine 2 sprays intranasal BID calcium citrate 1 tab PO DAILY cholecalciferol (vitamin D3) 1 tab PO DAILY fluticasone propion-salmeterol 230-21 mcg/actuation (Advair HFA) 1 puff inhalation BID folic acid 1 mg PO DAILY hydroxyzine HCl 1 tab PO Q8H PRN ibuprofen 800 mg PO TID PRN ipratropium bromide 2.5 mL inhalation QID PRN ipratropium-albuterol 20-100 mcg/actuation (Combivent Respimat) 1 puff inhalation QID ketotifen fumarate 0.025%(0.035%) 1 drp ophthalmic (eye) BID PRN loratadine 1 tab PO DAILY montelukast 1 tab PO BEDTIME omeprazole 1 cap PO DAILY@0630 tezepelumab-ekko (Tezspire) mg subcut tiotropium bromide 1.25 mcg/actuation (Spiriva Respimat) 2 puffs PO DAILY Do you need a note to return to daycare/school/sports/work: No HPI PE HPI Details THIS 52 YEARS OLD VERY PLEASANT FEMALE IS HERE FOR HER ROUTINE FOLLOW- UP. SHE IS HAVING INCREASED NASAL CONGESTION WITH SOME POSTNASAL DRIP AND COUGH IN THE PAST FEW WEEKS. THIS IS DUE TO CHANGE IN THE WEATHER. BREATHING SAUCEDO HAS BEEN STABLE WITHOUT ANY WHEEZING. SHE WALKS AROUND WITHOUT MUCH SHORTNESS OF BREATH. CONTINUES TO USE HER INHALERS REGULARLY, LISTED ABOVE. SHE IS ALSO ON BIOLOGIC TREATMENT FOR HER ALLERGY PROBLEM,( TEZSPIRE ) SUBQ Q.4 WEEKS. THIS IS A PATIENT WHO HAS HAD GROSS OBESITY, WAS A CASE OF OBSTRUCTIVE SLEEP APNEA AND POST BARIATRIC SURGERY HAD LOST SIGNIFICANT WEIGHT. . AND SPARKLE SYMPTOMS HAVE RESOLVED LATELY SHE HAS GAINED SOME WEIGHT AGAIN AND IS SCHEDULED TO SEE HER WEIGHT MANAGEMENT TEAM. [facility] Medical History Bronchitis SPARKLE (obstructive sleep apnea) Allergic rhinitis Asthma Pulmonary embolism Pulmonary cavitary lesion COPD (chronic obstructive pulmonary disease) Pulmonary cavitary lesion Asthma Surgical History H/O gastric sleeve History of partial hysterectomy History of surgery on wrist History of ankle surgery History of knee replacement Family History Father Prostate cancer Social History Household Members: Spouse and Family Caregiver staying overnight: No Housing: House Are you a primary child care coordinator to a significant other at home: Yes (mother) Do you presently have visiting nurse or other home services: Yes Alcohol intake: never Patient Tobacco Use Status: Never used Tobacco Advance Directives Date on File: 12/26/21 service: No Current occupational status: disabled Female Reproductive History Menstrual Age of Menarche: 7 Review of Systems Const All systems reviewed & are unremarkable except as noted in HPI and below Eyes Reports no additional complaints ENT Reports no additional complaints Card Denies chest pain, Denies irregular heart rhythm and Denies leg edema Resp Reports as per HPI GI Reports no additional complaints Reports no additional complaints Musc Reports no additional complaints Skin/Breast Reports system reviewed and no additional complaints, except as documented Neuro Reports no additional complaints Psych Reports anxiety and Reports depression Endo Reports no additional complaints Physical Exam Vital Signs: Last Vital Signs Pulse 62 05/06/23 10:41 BP 130/74 05/06/23 10:41 Pulse Ox 100 05/06/23 10:41 Oxygen Delivery Method Room Air 05/06/23 10:41 BMI result Body Mass Index 38.4 Const General: comfortable (But short of breath on minimal walking and during conversation.), no acute distress, alert and awake Orientation/consciousness: patient oriented x3 HEENT Head: Yes normal to inspection General nose exam: No nasal polyps present and No nasal discharge present Face and sinus: Yes sinuses nontender Mouth: oropharynx normal Throat: Yes posterior oropharynx normal Eyes General: appearance normal, both eyes and all related structures Neck Neck: Yes normal visual inspection, Yes no lymphadenopathy, Yes trachea midline and Yes no JVD Thyroid: Thyroid normal Chest Chest palpation & inspection: normal inspection of the chest, normal palpation of entire chest wall and no tenderness Resp Other: Percussion note resonant, breath sounds are distant but equal on both sides. No audible wheezes . NO CREPITATIONS ARE HEARD. Cardio Palpation: normal PMI Rate: regular rate Rhythm: regular rhythm Heart sounds: no gallops and no murmurs Peripheral pulses: Peripheral pulses 2+ throughout GI Palpation (GI): Soft to palpation, nontender, No hepatosplenomegaly present and no masses Auscultation: normal bowel sounds Back/Spine/Pelvis Thoracic/Lumbar Spine: thoracic and lumbar spine normal to inspection Skin General skin exam: no rashes or lesions noted Neuro General: patient oriented x3 and no focal motor deficits Cranial nerves: Yes CN's II-XII intact bilaterally Extrem General: Yes normal to inspection, Yes no clubbing, cyanosis or edema and Yes no calf tenderness Psych Speech and movement: Normal speech and movement present Assessment & Plan Assessment & Plan (1) COPD (chronic obstructive pulmonary disease): Comment: This patient has been treated for long time as a case of advanced chronic obstructive pulmonary disease/ severe asthma. It seems to be well controlled at this time. Advised to continue the current medical regimen. [place] : Advair HFA 230-212 puffs b.i.d., Spiriva Respimat 2 inhalations daily, Combivent Respimat 1 inhalation Q 6 hours p.r.n.. Ipratropium-Albuterol Inh solution via Neb . q 6 hrs PRN when at home Code(s): J44.9 - Chronic obstructive pulmonary disease, unspecified (2) Pulmonary cavitary lesion: Comment: Pneumonia and cavitary lesion in the right upper lobe ,Completely resolved. A 4 mm nodule in left upper lobe, increased from 3 mm, would need to be followed, by is CT scan in 1 year. Code(s): J98.4 - Other disorders of lung (3) Pulmonary nodules: Comment: Previous CT scan of the chest in December 2021 showed multiple pulmonary nodules the largest being [address] SCAN ON 12/10/2022 SHOWED: DIFFUSE BRONCHIAL THICKENING CONSISTENT WITH CHRONIC BRONCHITIS. VEXING AND WANING PULMONARY NODULES CONSISTENT WITH, INFLAMMATORY ETIOLOGY. NO CAVITARY LESION WAS NOTED. REVIEWED THE FINDINGS OF CT SCAN WITH THE PATIENT ONCE AGAIN, AND REASSURED. Code(s): R91.8 - Other nonspecific abnormal finding of lung field (4) Pulmonary embolism: Comment: Diagnosed to have pulmonary embolism on 06/04/22 No original focus of DVT . Patient completed anticoagulants for almost 8 months and then anticoagulation was stopped . She has had no recurrence. Code(s): I26.99 - Other pulmonary embolism without acute cor pulmonale (5) Allergic rhinitis: Comment: This patient does have symptoms of chronic allergic rhinitis. She has been under care of allergy specialists, Patient told us that she is on a new biologic agent ( TEZSPIRE ) Her nasal symptoms are well controlled. Code(s): J30.9 - Allergic rhinitis, unspecified (6) SPARKLE (obstructive sleep apnea): Comment: Patient gives history of diagnosis of SPARKLE, since many years ago. Initial sleep study at [facility] and then following 2 studies at [facility]. After losing significant weight she had stopped using the CPAP, as she did not have any symptoms of SPARKLE. Currently she has gained about. 20 lb of weight but still denies symptoms of SPARKLE. She is being followed at to weight management program of [facility]. Code(s): G47.33 - Obstructive sleep apnea (adult) (pediatric) Coding Level of Care Code Est Pt Level 4 (01691) Diagnoses COPD (chronic obstructive pulmonary disease) J44.9 Pulmonary cavitary lesion J98.4 Pulmonary nodules R91.8 Pulmonary embolism I26.99 Allergic rhinitis J30.9 SPARKLE (obstructive sleep apnea) G47.33
[2023-05-06 10:41] VITALS: BP 130/74; PULSE 62; O2SAT 100; BMI 38.4
== END 2023-05-06 10:57 | disposition home or self-care (01) ==
PROVIDERS: PCP Internal Medicine; Visit Provider Internal Medicine
DX: J44.9 Chronic obstructive pulmonary disease, unspecified (principal); J98.4 Other disorders of lung; R91.8 Other nonspecific abnormal finding of lung field; I26.99 Other pulmonary embolism without acute cor pulmonale; J30.9 Allergic rhinitis, unspecified; G47.33 Obstructive sleep apnea (adult) (pediatric)
CPT/HCPCS: 99214

== ENCOUNTER → 2023-05-06 10:20 | Outpatient (BNVA) | payer OTHER, SELFPAY | PROVIDERS: PCP Internal Medicine; Visit Provider Internal Medicine | DX: I26.99 Other pulmonary embolism without acute cor pulmonale (principal); J44.9 Chronic obstructive pulmonary disease, unspecified; J98.4 Other disorders of lung; J30.9 Allergic rhinitis, unspecified; R91.8 Other nonspecific abnormal finding of lung field; G47.33 Obstructive sleep apnea (adult) (pediatric) | CPT/HCPCS: 99212 ==

== ENCOUNTER 2023-06-03 09:20 | Emergency (ER) | payer OTHER, SELFPAY ==
[2023-06-03 09:36] VITALS: BP 149/85; PULSE 65; RESP 19; TEMP 36.6; O2SAT 100; BMI 37.8
--- NOTE | 2023-06-03 10:38 | ED_ITS ---
HPI - URI/Sore Throat General Chief Complaint: Upper Respiratory Symptoms Stated Complaint: Diff Breathing Asthma Time Seen by Provider: 06/03/23 10:20 Source: patient Mode of arrival: ambulatory Limitations: no limitations History of Present Illness HPI Narrative: 53 yo female with history of COPD/asthma, hx PE last year now off of anticoagulation, SPARKLE, hx PNA who presents to the ER for evaluation of cough, SOB, and wheezing for the last 5 days. She reports productive cough of yellow phelgm. No fevers but she has had chills. No known sick contacts. She has been using her duonebs at home with some relief. She denies N/V/D or abdominal pain. She reports chest discomfort bilaterally when she coughs. No chest pain at rest or with exertion. MD elicited complaint: cough and nasal congestion Pertinent past history: COPD and asthma Onset (ago): day(s) (5) Consistency: progressively worsening Severity: moderate Description of mucous: yellow Able to tolerate fluids by mouth: Yes Exacerbating factors: exertion Relieving factors: other (duoneb) Associated symptoms: chills, myalgias, nasal congestion, cough, chest pain and shortness of breath Treatments prior to arrival: other (duoneb this morning) Related Data Home Medications Medication Instructions Recorded Confirmed azelastine 137 mcg (0.1 %) nasal 2 spray intranasal BID 12/26/21 05/06/23 spray aerosol calcium citrate 200 mg (950 mg) 1 tab PO DAILY 12/26/21 05/06/23 tablet cholecalciferol (vitamin D3) 25 1 tab PO DAILY 12/26/21 05/06/23 mcg (1,000 unit) tablet fluticasone propionate 230 1 puff inhalation BID 12/26/21 05/06/23 mcg-salmeterol 21 mcg/actuation HFA inhaler (Advair HFA) hydroxyzine HCl 25 mg tablet 1 tab PO Q8H PRN itch 12/26/21 05/06/23 ketotifen fumarate 0.025 % (0.035 1 drp ophthalmic (eye) BID PRN itch 12/26/21 05/06/23 %) eye drops loratadine 10 mg tablet 1 tab PO DAILY 12/26/21 05/06/23 montelukast 10 mg tablet 1 tab PO BEDTIME 12/26/21 05/06/23 omeprazole 40 mg capsule,delayed 1 cap PO DAILY@0630 12/26/21 05/06/23 release tiotropium bromide 1.25 2 puff PO DAILY 12/26/21 05/06/23 mcg/actuation mist for inhalation (Spiriva Respimat) ipratropium 20 mcg-albuterol 100 1 puff inhalation QID 01/01/22 05/06/23 mcg/actuation mist for inhalation (Combivent Respimat) folic acid 1 mg tablet 1 mg PO DAILY 07/24/22 05/06/23 tezepelumab-ekko 210 mg/1.91 mL mg subcut 10/15/22 05/06/23 (110 mg/mL) subcutaneous syringe (Tezspire) ibuprofen 800 mg tablet 800 mg PO TID PRN 05/06/23 05/06/23 Previous Rx's Medication Instructions Recorded ipratropium bromide 0.02 % 2.5 ml inhalation QID PRN for 02/26/23 solution for inhalation wheezing #125 mL azithromycin 250 mg tablet See Rx Instructions PO .COMPLEX #6 06/03/23 (Zithromax Z-Alexis) tabs benzonatate 100 mg capsule 100 mg PO TID PRN cough #20 caps 06/03/23 guaifenesin 1,200 mg tablet, 1,200 mg PO BID #10 tabs 06/03/23 extended release 12 hr (Mucus Relief ER) prednisone 10 mg tablets in a dose See Taper PO DAILY #48 ea 06/03/23 pack Allergies Allergy/AdvReac Type Severity Reaction Status Date / Time latex [Latex] Allergy Mild UNKNOWN Verified 06/03/23 09:36 cats, pollen, mold Allergy Unknown Unknown Uncoded 06/03/23 09:36 Latex Allergy Unknown Unknown Uncoded 06/03/23 09:36 Review of Systems Review of Systems: Yes all other systems are reviewed and are negative PMFSH Past Medical History Medical History Bronchitis SPARKLE (obstructive sleep apnea) Allergic rhinitis Asthma Pulmonary embolism Pulmonary cavitary lesion COPD (chronic obstructive pulmonary disease) Pulmonary cavitary lesion Asthma Surgical History H/O gastric sleeve History of partial hysterectomy History of surgery on wrist History of ankle surgery History of knee replacement Family History Family History Father Prostate cancer Social History Social History Household Members: Spouse and Family Housing: House Are you a primary insurance healthcare consultant to a significant other at home: Yes (mother) Do you presently have visiting nurse or other home services: Yes Alcohol intake: never Patient Tobacco Use Status: Never used Tobacco Advance Directives: Yes Advance Directives on File: Yes Advance Directives Date on File: 12/26/21 service: No Current occupational status: disabled Physical Exam Vital Signs: Vital Signs: Last Vital Signs Temp 98.4 F 06/03/23 12:17 Pulse 87 06/03/23 12:22 Resp 18 06/03/23 12:22 BP 134/61 06/03/23 12:17 Pulse Ox 97 06/03/23 12:17 O2 Del Method Room Air 06/03/23 12:17 BMI result Body Mass Index 37.8 Appearance: Alert. Oriented X3. No acute distress. Head: normocephalic, atraumatic. Eyes: Pupils equal, round and reactive to light. ENT: Pharynx normal. No tonsillar swelling or exudate. Neck: Normal inspection. Neck supple. CVS: Normal heart rate and rhythm. Pulses normal. Respiratory: No respiratory distress. Breath sounds diminished throughout with faint inspiratory wheeze in the LLL. Abdomen: Soft and nontender. +BS x4 Skin: Skin warm and dry. Normal skin color. Normal skin turgor. No rashes. Extremities: No lower extremity edema. No joint swelling. Neuro/psych: Oriented X 3. No motor deficit. No sensory deficit. CN II-XII intact. Normal speech and cognition. Medications Administered Discontinued Medications Generic Name Dose Route Start Last Admin Trade Name Freq PRN Reason Stop Dose Admin Albuterol Sulfate 2.5 mg 06/03/23 12:19 06/03/23 12:21 Albuterol Sulfate (0.083%) 2.5 Mg/3 Ml Vial.Neb INHALE 06/03/23 12:20 2.5 mg ONCE ONE Administration Prednisone 60 mg 06/03/23 11:15 06/03/23 11:32 Prednisone 20 Mg Tablet PO 06/03/23 11:16 60 mg ONCE ONE Administration Medical Decision Making Medical Decision Making MDM Narrative: 53 yo female with history of COPD/asthma, hx PE last year now off of anticoagulation, SPARKLE, hx PNA who presents to the ER for evaluation of cough, SOB, and wheezing for the last 5 days. VSS on arrival. no diffuse wheezing on arrival but diminished throughout. given albuterol and prednisone with improvement in aeration. CXR without PNA. viral PCR negative. old CT scans reviewed. doubt PE at this time given her other symptoms. no clinical evidence of PE, not tachycardic or hypoxic. will treat with steroids, zpack, nebs at home. encouraged close outpatient follow up Differential Diagnosis Differential Diagnoses: The differential diagnosis associated with the presentation includes acute COPD exacerbation, acute asthma exacerbation, Viral URI w/ cough, pneumonia, bronchitis, doubt PE Admission/Observation Consideration of admission/observation: Escalation of care including admission/o bservation considered Lab Data MDM Lab Attestation statement: I reviewed the patient's lab results. Labs: Lab Results 06/03/23 Range/Units 10:26 Influenza Type A (PCR) NEGATIVE (Negative) Influenza Type B (PCR) NEGATIVE (Negative) RSV RNA Qual (PCR) NEGATIVE (Negative) SARS-CoV-2 RNA (RT-PCR) NEGATIVE (Negative) Independent Interpretation I performed an independent interpretation of an: Plain X-Ray Interpretation: no focal infiltrate or effusion, agree w/ radiology read Radiology Impression Discussion of test interpretation with radiology: I have reviewed the radiologist's reading. Radiologist Impression: EXAMINATION: XR CHEST CLINICAL INFORMATION: Cough. COMPARISON: None available. TECHNIQUE: 2 views of the chest were obtained. FINDINGS: The lungs are well-expanded and clear of acute process. Heart size and pulmonary vascularity is normal. There is moderate dextroscoliosis mid dorsal spine. No aggressive lytic or sclerotic process seen. XR/XR chest 2V IMPRESSION: Unremarkable chest exam. Independent Historian Clinical information obtained from an independent historian. History obtained from or confirmed by: Spouse External Record Review External record reviewed: Prior outpatient labs and Prior outpatient radiology Tests considered The following testing was considered but not selected: lab workup considered but clinically stable Prescription Management I considered prescription management with: Antibiotic Chronic Conditions Patient?s care impacted by: Other (asthma) Critical Care Time Critical Care Time Critical Care Time: No Discharge Plan Discharge Clinical Impression: Acute bronchitis Qualifiers: Bronchitis organism: unspecified organism Qualified Code(s): J20.9 - Acute bronchitis, unspecified Patient Disposition: Home, Self-Care Instructions: Acute Bronchitis (ED) Additional Instructions: Your chest x-ray today was normal. You tested negative for COVID, flu, RSV. Started prescribed steroids as directed. Start them tomorrow morning, your given 1st dose today in the ER. Recommend using your albuterol nebulizers at home every 4 hours until your feeling better. Take the prescribed cough medication as needed. Rest and drink plenty of fluids. Follow-up with your primary care doctor. If you develop new or worsening symptoms call 911 or come back to the ER for further evaluation. Prescriptions: New prednisone 10 mg tablets,dose pack See Taper PO DAILY Qty: 48 0RF Taper: Prednisone 40 mg daily for 3 Days and 0 Hour 30 mg daily for 3 Days and 0 Hour 20 mg daily for 3 Days and 0 Hour 10 mg daily for 3 Days and 0 Hour benzonatate 100 mg capsule 100 mg PO TID PRN (Reason: cough) Qty: 20 0RF guaifenesin [Mucus Relief ER] 1,200 mg tablet extended release 12hr 1,200 mg PO BID Qty: 10 0RF azithromycin [Zithromax Z-Aelxis] 250 mg tablet See Rx Instructions .ROUTE .COMPLEX Qty: 6 0RF Rx Instructions: take 500 mg today (day 1), then 250 mg for 4 days (days 2-5) No Action ipratropium bromide 0.02 % solution 2.5 ml inhalation QID PRN (Reason: for wheezing) Qty: 125 3RF Combivent Respimat 20-100 mcg/actuation mist 1 puff inhalation QID ketotifen fumarate 0.025 % (0.035 %) drops 1 drp ophthalmic (eye) BID PRN (Reason: itch) omeprazole 40 mg capsule,delayed release(DR/EC) 1 cap PO DAILY@0630 montelukast 10 mg tablet 1 tab PO BEDTIME hydroxyzine HCl 25 mg tablet 1 tab PO Q8H PRN (Reason: itch) azelastine 137 mcg (0.1 %) aerosol,spray 2 spray intranasal BID loratadine 10 mg tablet 1 tab PO DAILY calcium citrate 200 mg (950 mg) tablet 1 tab PO DAILY Advair HFA 230-21 mcg/actuation HFA aerosol inhaler 1 puff inhalation BID cholecalciferol (vitamin D3) 25 mcg (1,000 unit) tablet 1 tab PO DAILY Spiriva Respimat 1.25 mcg/actuation mist 2 puff PO DAILY Tezspire 210 mg/1.91 mL (110 mg/mL) syringe subcut folic acid 1 mg tablet 1 mg PO DAILY ibuprofen 800 mg tablet 800 mg PO TID PRN Interventions: ED Discharge Assessment Last Done: 06/03/23 13:41 Discharge Date/Time: 06/03/23 13:41
--- NOTE | 2023-06-03 11:36 | PC.NURSE ---
pt medicated per MAR
[2023-06-03 12:17] VITALS: BP 134/61; PULSE 69; RESP 18; TEMP 36.9; O2SAT 97
[2023-06-03 12:22] VITALS: PULSE 87; RESP 18; O2SAT 97
== END 2023-06-03 13:41 | disposition home or self-care (01) ==
PROVIDERS: Emergency Provider Emergency Medicine Emergency Medical Services; PCP Internal Medicine
DX: J20.9 Acute bronchitis, unspecified (principal); R06.02 Shortness of breath; G47.33 Obstructive sleep apnea (adult) (pediatric); M79.10 Myalgia, unspecified site; R05.9 Cough, unspecified; J45.909 Unspecified asthma, uncomplicated; Z20.822 Contact with and (suspected) exposure to COVID-19; Z20.828 Contact with and (suspected) exposure to other viral communicable diseases
CPT/HCPCS: 0241U; 71046; 94640; 99284

== ENCOUNTER 2023-08-19 10:07 | Outpatient (AMB) | payer OTHER, SELFPAY ==
[2023-08-19 10:24] VITALS: BP 130/50; PULSE 70; O2SAT 98; BMI 39.5
--- NOTE | 2023-08-19 10:24 | MHC.OFFVIS ---
Intake Vital Signs 08/19/23 10:24 Height 5 ft 1 in Weight 209 lb BMI 39.5 BP 130/50 L Blood Pressure Location Lt brachial Position Sitting Pulse 70 Pulse Source Pulse Oximeter Pulse Oximetry (%) 98 Oxygen Delivery Method Room Air Intake Visit Reasons: PE Intake Note: pt is here for follow up and states she is feeling good, had episode of wheezing and had round of prednisone. 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 Allergies latex [Latex] Allergy (Mild, Verified 08/19/23 10:46) UNKNOWN cats, pollen, mold Allergy (Unknown, Uncoded 08/19/23 10:46) Unknown Latex Allergy (Unknown, Uncoded 08/19/23 10:46) Unknown Medication List - Last Reconciled 08/19/23 by Khadar Parker MD azelastine 2 sprays intranasal BID calcium citrate 1 tab PO DAILY cholecalciferol (vitamin D3) 1 tab PO DAILY fluticasone propion-salmeterol 230-21 mcg/actuation (Advair HFA) 1 puff inhalation BID folic acid 1 mg PO DAILY guaifenesin ER (Mucus Relief ER) 1,200 mg PO BID hydroxyzine HCl 1 tab PO Q8H PRN ibuprofen 800 mg PO TID PRN ipratropium bromide 2.5 mL inhalation QID PRN ipratropium-albuterol 20-100 mcg/actuation (Combivent Respimat) 1 puff inhalation QID ketotifen fumarate 0.025%(0.035%) 1 drp ophthalmic (eye) BID PRN loratadine 1 tab PO DAILY montelukast 1 tab PO BEDTIME omeprazole 1 cap PO DAILY@0630 tezepelumab-ekko (Tezspire) mg subcut tiotropium bromide 1.25 mcg/actuation (Spiriva Respimat) 2 puffs PO DAILY Do you need a note to return to daycare/school/sports/work: No HPI PE HPI Details 53 YEARS OLD QUIET BUT VERY PLEASANT FEMALE IS HERE FOR HER ROUTINE FOLLOW-UP. HER NASAL SYMPTOMS ARE MINIMAL AND ACTUALLY WELL CONTROLLED. SHE HAS ONLY OCCASIONAL COUGH, DENIES ANY WHEEZING ATTACKS, AND DENIES ANY SHORTNESS OF BREATH ON DAY-TO-DAY ACTIVITIES. SHE HAS BEEN OFF ANTICOAGULATION SINCE HER LAST VISIT AND THERE HAS BEEN NO RECURRENCE OF DVT OR HAVE EMBOLISM. SHE DESCRIBES HER SLEEP TO BE FAIRLY GOOD AND DENIES DAYTIME SLEEPINESS. [facility] Medical History Bronchitis SPARKLE (obstructive sleep apnea) Allergic rhinitis Asthma Pulmonary embolism Pulmonary cavitary lesion COPD (chronic obstructive pulmonary disease) Pulmonary cavitary lesion Asthma Surgical History H/O gastric sleeve History of partial hysterectomy History of surgery on wrist History of ankle surgery History of knee replacement Family History Father Prostate cancer Social History Household Members: Spouse and Family Caregiver staying overnight: No Housing: House Are you a primary healthcare analyst to a significant other at home: Yes (mother) Do you presently have visiting nurse or other home services: Yes Alcohol intake: never Patient Tobacco Use Status: Never used Tobacco Advance Directives Date on File: 12/26/21 service: No Current occupational status: disabled Female Reproductive History Menstrual Age of Menarche: 7 Review of Systems Const All systems reviewed & are unremarkable except as noted in HPI and below Eyes Reports no additional complaints ENT Reports no additional complaints Card Denies chest pain, Denies irregular heart rhythm and Denies leg edema Resp Reports as per HPI GI Reports no additional complaints Reports no additional complaints Musc Reports no additional complaints Skin/Breast Reports system reviewed and no additional complaints, except as documented Neuro Reports no additional complaints Psych Reports anxiety and Reports depression Endo Reports no additional complaints Physical Exam Vital Signs: Last Vital Signs Pulse 70 08/19/23 10:24 BP 130/50 L 08/19/23 10:24 Pulse Ox 98 08/19/23 10:24 Oxygen Delivery Method Room Air 08/19/23 10:24 BMI result Body Mass Index 39.5 Const General: comfortable (But short of breath on minimal walking and during conversation.), no acute distress, alert and awake Orientation/consciousness: patient oriented x3 HEENT Head: Yes normal to inspection General nose exam: No nasal polyps present and No nasal discharge present Face and sinus: Yes sinuses nontender Mouth: oropharynx normal Throat: Yes posterior oropharynx normal Eyes General: appearance normal, both eyes and all related structures Neck Neck: Yes normal visual inspection, Yes no lymphadenopathy, Yes trachea midline and Yes no JVD Thyroid: Thyroid normal Chest Chest palpation & inspection: normal inspection of the chest, normal palpation of entire chest wall and no tenderness Resp Other: Percussion note resonant, breath sounds are distant but equal on both sides. No audible wheezes . NO CREPITATIONS ARE HEARD. Cardio Palpation: normal PMI Rate: regular rate Rhythm: regular rhythm Heart sounds: no gallops and no murmurs Peripheral pulses: Peripheral pulses 2+ throughout GI Palpation (GI): Soft to palpation, nontender, No hepatosplenomegaly present and no masses Auscultation: normal bowel sounds Back/Spine/Pelvis Thoracic/Lumbar Spine: thoracic and lumbar spine normal to inspection Skin General skin exam: no rashes or lesions noted Neuro General: patient oriented x3 and no focal motor deficits Cranial nerves: Yes CN's II-XII intact bilaterally Extrem General: Yes normal to inspection, Yes no clubbing, cyanosis or edema and Yes no calf tenderness Psych Speech and movement: Normal speech and movement present Assessment & Plan Assessment & Plan (1) Asthma: Comment: She has Asthma/COPD . [place]: see under COPD Code(s): J45.909 - Unspecified asthma, uncomplicated Plan: see below (2) COPD (chronic obstructive pulmonary disease): Comment: This patient has been treated for long time as a case of advanced chronic obstructive pulmonary disease/ severe asthma. It seems to be well controlled at this time. Advised to continue the current medical regimen. Code(s): J44.9 - Chronic obstructive pulmonary disease, unspecified Plan: [place] : Advair HFA 230-212 puffs b.i.d., Spiriva Respimat 2 inhalations daily, Combivent Respimat 1 inhalation Q 6 hours p.r.n.. Ipratropium-Albuterol Inh solution via Neb . q 6 hrs PRN when at home (3) Allergic rhinitis: Comment: This patient does have symptoms of chronic allergic rhinitis. She has been under care of allergy specialists, Code(s): J30.9 - Allergic rhinitis, unspecified Plan: Allergic rhinitis is under good control. Patient advised to continue the biologic agent ( TEZSPIRE ) Continue to follow-up with allergy specialists. Coding Level of Care Code Est Pt Level 3 (83597) Diagnoses Asthma J45.909 COPD (chronic obstructive pulmonary disease) J44.9 Allergic rhinitis J30.9
== END 2023-08-19 10:51 | disposition home or self-care (01) ==
PROVIDERS: PCP Internal Medicine; Visit Provider Internal Medicine
DX: J45.909 Unspecified asthma, uncomplicated (principal); J44.9 Chronic obstructive pulmonary disease, unspecified; J30.9 Allergic rhinitis, unspecified
CPT/HCPCS: 99213

== ENCOUNTER → 2023-08-19 10:07 | Outpatient (BNVA) | payer OTHER, SELFPAY | PROVIDERS: PCP Internal Medicine; Visit Provider Internal Medicine | DX: J45.909 Unspecified asthma, uncomplicated (principal); J44.9 Chronic obstructive pulmonary disease, unspecified | CPT/HCPCS: 99212 ==

== ENCOUNTER 2023-10-10 01:24 | Emergency (ER) | payer OTHER, SELFPAY ==
--- NOTE | ~2023-10-10 | XR_ITS ---
EXAMINATION: XR ELBOW, LEFT CLINICAL INFORMATION: Fall. Pain. COMPARISON: None available. TECHNIQUE: AP, lateral, and oblique views of the left elbow. FINDINGS: The bone mineralization is normal. No fracture is seen. There is no joint effusion. There is a corticated bony density/calcifications along the olecranon. The soft tissues are otherwise unremarkable. XR/XR elbow LT min 3V IMPRESSION: No significant abnormality identified.
--- NOTE | ~2023-10-10 | XR_ITS ---
EXAMINATION: XR SHOULDER, LEFT CLINICAL INFORMATION: Fall. Pain. COMPARISON: None available. TECHNIQUE: 3 views of the left shoulder. FINDINGS: The bone mineralization is normal. There is moderate glenohumeral degenerative change with mild loss of joint space, subchondral sclerotic and cystic change as well as osteophyte formation. There is no fracture or dislocation. The soft tissues are unremarkable. XR/XR shoulder LT min 2V IMPRESSION: Moderate glenohumeral degenerative change. No fracture or dislocation.
--- NOTE | ~2023-10-10 | XR_ITS ---
EXAMINATION: XR HIP, LEFT CLINICAL INFORMATION: Fall. Pain. COMPARISON: None available. TECHNIQUE: Two views of the left hip. FINDINGS: The bone mineralization is within normal limits. There is mild/early bilateral hip degenerative change with minimal loss of joint space, subchondral sclerosis and minimal osteophyte formation. There is lower lumbar disc degenerative change. There is arteriovascular calcifications. The soft tissues are otherwise unremarkable. XR/XR hip LT min 2V IMPRESSION: 1. No acute fracture or dislocation. 2. Mild/early bilateral hip osteoarthritis.
[2023-10-10 01:30] VITALS: BP 152/85; PULSE 66; RESP 18; TEMP 36.6; O2SAT 100; BMI 37.5
--- NOTE | 2023-10-10 01:56 | ED_ITS ---
HPI - Fall General Chief Complaint: Fall Stated Complaint: Fall yesterday lt shldr/back pain Time Seen by Provider: 10/10/23 01:55 Source: patient and old records reviewed Mode of arrival: ambulatory Limitations: no limitations History of Present Illness HPI Narrative: 53 yo female with PMH of asthma, SPARKLE, prior PE but completed DOAC therapy, COPD, notes she missed steps yesterday and fall down 2 stairs while carrying something - she landed on the floor no head or neck injury but she has pain in L knee, L hip, L shoulder and elbow. She can move and walk on L knee. No LOC MD complaint: fall Onset (ago): hour(s) (24) Fall from: standing Fall witnessed: no Place fall occurred: home Loss of consciousness: none Prolonged down time: no Symptoms prior to fall: none Context: tripped/slipped Location of injury: pelvis Location of injury - extremities: left: shoulder, elbow and knee Severity: mild Quality: aching Associated symptoms (after fall): denies Related Data Home Medications Medication Instructions Recorded Confirmed azelastine 137 mcg (0.1 %) nasal 2 spray intranasal BID 12/26/21 05/06/23 spray aerosol calcium citrate 200 mg (950 mg) 1 tab PO DAILY 12/26/21 05/06/23 tablet cholecalciferol (vitamin D3) 25 1 tab PO DAILY 12/26/21 05/06/23 mcg (1,000 unit) tablet fluticasone propionate 230 1 puff inhalation BID 12/26/21 05/06/23 mcg-salmeterol 21 mcg/actuation HFA inhaler (Advair HFA) hydroxyzine HCl 25 mg tablet 1 tab PO Q8H PRN itch 12/26/21 05/06/23 ketotifen fumarate 0.025 % (0.035 1 drp ophthalmic (eye) BID PRN itch 12/26/21 05/06/23 %) eye drops loratadine 10 mg tablet 1 tab PO DAILY 12/26/21 05/06/23 montelukast 10 mg tablet 1 tab PO BEDTIME 12/26/21 05/06/23 omeprazole 40 mg capsule,delayed 1 cap PO DAILY@0630 12/26/21 05/06/23 release tiotropium bromide 1.25 2 puff PO DAILY 12/26/21 05/06/23 mcg/actuation mist for inhalation (Spiriva Respimat) ipratropium 20 mcg-albuterol 100 1 puff inhalation QID 01/01/22 05/06/23 mcg/actuation mist for inhalation (Combivent Respimat) folic acid 1 mg tablet 1 mg PO DAILY 07/24/22 05/06/23 tezepelumab-ekko 210 mg/1.91 mL mg subcut 10/15/22 05/06/23 (110 mg/mL) subcutaneous syringe (Tezspire) ibuprofen 800 mg tablet 800 mg PO TID PRN 05/06/23 05/06/23 Previous Rx's Medication Instructions Recorded guaifenesin 1,200 mg tablet, 1,200 mg PO BID #10 tabs 06/03/23 extended release 12 hr (Mucus Relief ER) ipratropium bromide 0.02 % 2.5 ml inhalation QID PRN for 07/20/23 solution for inhalation wheezing #125 mL Allergies Allergy/AdvReac Type Severity Reaction Status Date / Time latex [Latex] Allergy Mild UNKNOWN Verified 10/10/23 01:35 cats, pollen, mold Allergy Unknown Unknown Uncoded 10/10/23 01:35 Latex Allergy Unknown Unknown Uncoded 10/10/23 01:35 Review of Systems Review of Systems: Constitutional : No Fever, No Chills ENT/Mouth : No Ear Pain, No Hoarseness, No sore throat Eyes: No Eye Pain, No Swelling, No Redness, No Foreign Body Cardiovascular : No Chest Pain, No SOB Respiratory : No Cough, No Dyspnea Gastrointestinal : No Nausea, No Vomiting, No Diarrhea, No abdominal Pain Genitourinary : No Dysuria, No Hematuria Musculoskeletal : positive joint pain, No Myalgias, No Joint Swelling Skin : No Skin lacerations, No rash Neuro : No Weakness, No Numbness, No Loss of Consciousness, No Dizziness, No Headache Psych : No Anxiety/Panic, No Depression All other systems reviewed and are negative [facility] Past Medical History Attestation statement: The following information was validated with the patient. Source: old records reviewed Medical History Bronchitis SPARKLE (obstructive sleep apnea) Allergic rhinitis Asthma Pulmonary embolism Pulmonary cavitary lesion COPD (chronic obstructive pulmonary disease) Pulmonary cavitary lesion Asthma Surgical History H/O gastric sleeve History of partial hysterectomy History of surgery on wrist History of ankle surgery History of knee replacement Family History Family History Father Prostate cancer Social History Social History Household Members: Spouse and Family Housing: House Are you a primary client care consultant to a significant other at home: Yes (mother) Do you presently have visiting nurse or other home services: Yes Alcohol intake: never Patient Tobacco Use Status: Never used Tobacco Advance Directives: Yes Advance Directives on File: Yes Advance Directives Date on File: 12/26/21 service: No Current occupational status: disabled Physical Exam Vital Signs: Vital Signs: Last Vital Signs Temp 97.9 F 10/10/23 01:30 Pulse 66 10/10/23 01:30 Resp 18 10/10/23 01:30 BP 152/85 H 10/10/23 01:30 Pulse Ox 100 10/10/23 01:30 O2 Del Method Room Air 10/10/23 01:30 BMI result Body Mass Index 37.5 Appearance: Alert. Oriented X3. No acute distress. Eyes: Pupils equal, round and reactive to light. ENT: Pharynx normal. Neck: Normal inspection. Neck supple. CVS: Normal heart rate and rhythm. Pulses normal. Respiratory: No respiratory distress. Breath sounds normal. Abdomen: Soft and non-tender. Skin: Skin warm and dry. Normal skin color. Normal skin turgor. Extremities: No lower extremity edema. L knee no effusion or signs of trauma normal ROM doubt fracture, L elbow no swelling or contusion but reports pain with ROM, L hip ttp no signs of trauma. L shoulder can ROM but reports pain Neuro: Oriented X 3. No motor deficit. No sensory deficit. Medical Decision Making Medical Decision Making MDM Narrative: 53 yo female with PMH of asthma, SPARKLE, prior PE but completed DOAC therapy, COPD, here with c/o trauma and pain to L shoulder/elbow/knee and hip after mechanical fall at this time will need xrays I see no signs of trauma she is NV intact and has normal ROM. low susp for fracture. Differential Diagnosis Differential Diagnoses: The differential diagnosis associated with the pres entation includes sprain, strain, low suspicion of fracture _ knee has normal ROM and no signs of fracture defer imaging, no effusion present doubt head injury no trauma reported no LOC Admission/Observation Consideration of admission/observation: Escalation of care including admission/observation considered VS stable able to ambulate stable for DC Independent Interpretation I performed an independent interpretation of an: Plain X-Ray (no fx) Radiology Impression Discussion of test interpretation with radiology: I have reviewed the radiologist's reading. External Record Review External record reviewed: Inpatient record Discharge Plan Discharge Clinical Impression: Acute pain of left hip Left shoulder strain Qualifiers: Encounter type: initial encounter Qualified Code(s): S46.912A - Strain of unspecified muscle, fascia and tendon at shoulder and upper arm level, left arm, initial encounter Elbow strain Qualifiers: Encounter type: initial encounter Laterality: left Qualified Code(s): S46.912A - Strain of unspecified muscle, fascia and tendon at shoulder and upper arm level, left arm, initial encounter Patient Disposition: Home, Self-Care Instructions: Hip Pain (ED), Muscle Strain (DC), Arthralgia (ED) Additional Instructions: no broken bones seen on xray - return for worsening pain, numbness, weakness or any other concerns. Prescriptions: No Action ipratropium bromide 0.02 % solution 2.5 ml inhalation QID PRN (Reason: for wheezing) Qty: 125 3RF Combivent Respimat 20-100 mcg/actuation mist 1 puff inhalation QID ketotifen fumarate 0.025 % (0.035 %) drops 1 drp ophthalmic (eye) BID PRN (Reason: itch) omeprazole 40 mg capsule,delayed release(DR/EC) 1 cap PO DAILY@0630 montelukast 10 mg tablet 1 tab PO BEDTIME hydroxyzine HCl 25 mg tablet 1 tab PO Q8H PRN (Reason: itch) azelastine 137 mcg (0.1 %) aerosol,spray 2 spray intranasal BID loratadine 10 mg tablet 1 tab PO DAILY calcium citrate 200 mg (950 mg) tablet 1 tab PO DAILY Advair HFA 230-21 mcg/actuation HFA aerosol inhaler 1 puff inhalation BID cholecalciferol (vitamin D3) 25 mcg (1,000 unit) tablet 1 tab PO DAILY Spiriva Respimat 1.25 mcg/actuation mist 2 puff PO DAILY guaifenesin [Mucus Relief ER] 1,200 mg tablet extended release 12hr 1,200 mg PO BID Qty: 10 0RF Tezspire 210 mg/1.91 mL (110 mg/mL) syringe subcut folic acid 1 mg tablet 1 mg PO DAILY ibuprofen 800 mg tablet 800 mg PO TID PRN
[2023-10-10] MEDS: Acetaminophen 325 MG TABLET 975 MG PO (04:55)
[2023-10-10] MEDS: Lidocaine 4 % Patch ADH..PATCH 1 PATCH TRANSDERMA (04:56)
[2023-10-10 04:59] VITALS: RESP 16
== END 2023-10-10 05:01 | disposition home or self-care (01) ==
PROVIDERS: Emergency Provider Emergency Medicine; PCP Internal Medicine
DX: M25.552 Pain in left hip (principal); S46.912A Strain of unspecified muscle, fascia and tendon at shoulder and upper arm level, left arm, initial encounter; S46.812A Strain of other muscles, fascia and tendons at shoulder and upper arm level, left arm, initial encounter; W10.8XXA Fall (on) (from) other stairs and steps, initial encounter; J44.9 Chronic obstructive pulmonary disease, unspecified; Z86.711 Personal history of pulmonary embolism; Z79.899 Other long term (current) drug therapy; Y93.9 Activity, unspecified; Y92.9 Unspecified place or not applicable; Y99.9 Unspecified external cause status
CPT/HCPCS: 73030; 73080; 73502; 99283; 99284

== ENCOUNTER 2023-12-22 09:47 | Outpatient (AMB) | payer OTHER, SELFPAY ==
[2023-12-22 09:51] VITALS: BP 140/68; PULSE 79; O2SAT 99; BMI 36.7
--- NOTE | 2023-12-22 09:51 | A.OFFVIS_ITS ---
Vital Signs 12/22/23 09:51 Height 5 ft 2 in Weight 200 lb 9.93 oz BMI 36.7 BP 140/68 H Blood Pressure Location Lt brachial Position Sitting Pulse 79 Pulse Source Pulse Oximeter Pulse Oximetry (%) 99 Oxygen Delivery Method Room Air Intake Visit Reasons: PE Intake Note: pt is here for follow up and states she tried using cpap but did not go too well, she does fall asleep easily if she just sits, breathing is good. 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 BREATHING HAS BEEN FAIRLY STABLE WITHOUT ANY RECENT ACUTE EXACERBATION. SHE CONTINUES TO USE HER INHALERS REGULARLY. HER MAIN COMPLAINT IS NASAL CONGESTION AND DRYNESS, SHE IS USING AZELASTIN NASAL SPRAY B.I.D. WHICH HELPS. WEIGHT IS HOLDING STABLE ACTUALLY HAS LOST ABOUT 5 LB OF WEIGHT. 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 SHE DOES NOT NEED TO USE THE CPAP SHE HAS LOST WEIGHT. [facility] Medical History Bronchitis SPARKLE (obstructive sleep apnea) Allergic rhinitis Asthma Pulmonary embolism Pulmonary cavitary lesion COPD (chronic obstructive pulmonary disease) Pulmonary cavitary lesion Asthma Surgical History H/O gastric sleeve History of partial hysterectomy History of surgery on wrist History of ankle surgery History of knee replacement Family History Father Prostate cancer Social History Household Members: Spouse and Family Caregiver staying overnight: No Housing: House Are you a primary rn critical care to a significant other at home: Yes (mother) Do you presently have visiting nurse or other home services: Yes Unable to assess alcohol history related to: Unknown Alcohol intake: never Patient Tobacco Use Status: Never used Tobacco Advance Directives Date on File: 12/26/21 service: No Current occupational status: disabled Female Reproductive History Menstrual Age of Menarche: 7 Review of Systems Const All systems reviewed & are unremarkable except as noted in HPI and below Eyes Reports no additional complaints ENT Reports no additional complaints Card Denies chest pain, Denies irregular heart rhythm and Denies leg edema Resp Reports as per HPI GI Reports no additional complaints Reports no additional complaints Musc Reports no additional complaints Skin/Breast Reports system reviewed and no additional complaints, except as documented Neuro Reports no additional complaints Psych Reports anxiety and Reports depression Endo Reports no additional complaints Physical Exam Vital Signs: Last Vital Signs Pulse 79 12/22/23 09:51 BP 140/68 H 12/22/23 09:51 Pulse Ox 99 12/22/23 09:51 Oxygen Delivery Method Room Air 12/22/23 09:51 BMI result Body Mass Index 36.7 Const General: comfortable (But short of breath on minimal walking and during conversation.), no acute distress, alert and awake Orientation/consciousness: patient oriented x3 HEENT Head: Yes normal to inspection General nose exam: No nasal polyps present and No nasal discharge present Face and sinus: Yes sinuses nontender Mouth: oropharynx normal Throat: Yes posterior oropharynx normal Eyes General: appearance normal, both eyes and all related structures Neck Neck: Yes normal visual inspection, Yes no lymphadenopathy, Yes trachea midline and Yes no JVD Thyroid: Thyroid normal Chest Chest palpation & inspection: normal inspection of the chest, normal palpation of entire chest wall and no tenderness Resp Other: Percussion note resonant, breath sounds are distant but equal on both sides. No audible wheezes . NO CREPITATIONS ARE HEARD. Cardio Palpation: normal PMI Rate: regular rate Rhythm: regular rhythm Heart sounds: no gallops and no murmurs Peripheral pulses: Peripheral pulses 2+ throughout GI Palpation (GI): Soft to palpation, nontender, No hepatosplenomegaly present and no masses Auscultation: normal bowel sounds Back/Spine/Pelvis Thoracic/Lumbar Spine: thoracic and lumbar spine normal to inspection Skin General skin exam: no rashes or lesions noted Neuro General: patient oriented x3 and no focal motor deficits Cranial nerves: Yes CN's II-XII intact bilaterally Extrem General: Yes normal to inspection, Yes no clubbing, cyanosis or edema and Yes no calf tenderness Psych Speech and movement: Normal speech and movement present Assessment & Plan Assessment & Plan (1) COPD (chronic obstructive pulmonary disease): Comment: This patient has been treated for long time as a case of advanced chronic obstructive pulmonary disease/ severe asthma. It seems to be well controlled at this time. Advised to continue the current medical regimen. Code(s): J44.9 - Chronic obstructive pulmonary disease, unspecified Category: Medical Plan: ADVAIR HFA 230-21 2 PUFFS B.I.D. COMBIVENT RESPIMAT 1 INHALATION Q I.D. SPIRIVA RESPIMAT 1.25 MG 2 ACTUATIONS DAILY MONTELUKAST 10 MG DAILY GUAIFENESIN ER 1200 MG B.I.D. (2) Pulmonary cavitary lesion: Comment: Pneumonia and cavitary lesion in the right upper lobe ,Completely resolved. A 4 mm nodule in left upper lobe, increased from 3 mm, would need to be followed, by is CT scan in 1 year. Code(s): J98.4 - Other disorders of lung Category: Medical Plan: ABOVE (3) Pulmonary nodules: Comment: Previous CT scan of the chest in December 2021 showed multiple pulmonary nodules the largest being [address] SCAN ON 12/10/2022 SHOWED: DIFFUSE BRONCHIAL THICKENING CONSISTENT WITH CHRONIC BRONCHITIS. VEXING AND WANING PULMONARY NODULES CONSISTENT WITH, INFLAMMATORY ETIOLOGY. NO CAVITARY LESION WAS NOTED. REVIEWED THE FINDINGS OF CT SCAN WITH THE PATIENT ONCE AGAIN, AND REASSURED. Code(s): R91.8 - Other nonspecific abnormal finding of lung field Category: Medical Plan: REVIEWED THE FINDINGS AND PATIENT REASSURED (4) Asthma: Comment: She has Asthma/COPD . Code(s): J45.909 - Unspecified asthma, uncomplicated Category: Medical Plan: UNDER COPD (5) Allergic rhinitis: Comment: This patient does have symptoms of chronic allergic rhinitis. She has been under care of allergy specialists, Code(s): J30.9 - Allergic rhinitis, unspecified Category: Medical Plan: .MONTELUKAST 10 MG DAILY AZELASTIN 2 SPRAYS IN EACH NOSTRIL B.I.D.. LORATADINE 10 MG ONCE A DAY P.R.N. Coding Level of Care Code Est Pt Level 4 (97560) Diagnoses COPD (chronic obstructive pulmonary disease) J44.9 Pulmonary cavitary lesion J98.4 Pulmonary nodules R91.8 Asthma J45.909 Allergic rhinitis J30.9
== END 2023-12-22 10:29 | disposition home or self-care (01) ==
PROVIDERS: PCP Internal Medicine; Visit Provider Internal Medicine
DX: J44.9 Chronic obstructive pulmonary disease, unspecified (principal); J98.4 Other disorders of lung; R91.8 Other nonspecific abnormal finding of lung field; J45.909 Unspecified asthma, uncomplicated; J30.9 Allergic rhinitis, unspecified
CPT/HCPCS: 99214

== ENCOUNTER → 2023-12-22 09:47 | Outpatient (BNVA) | payer OTHER, SELFPAY | PROVIDERS: PCP Internal Medicine; Visit Provider Internal Medicine | DX: J44.9 Chronic obstructive pulmonary disease, unspecified (principal); J45.909 Unspecified asthma, uncomplicated; J98.4 Other disorders of lung; R91.8 Other nonspecific abnormal finding of lung field | CPT/HCPCS: 99212 ==

== ENCOUNTER 2023-12-30 21:24 | Emergency (ER) | payer OTHER, SELFPAY ==
--- NOTE | 2023-12-30 | ECG_ITS ---
Test Reason : RULE OUT PE Blood Pressure : / mmHG Vent. Rate : 061 BPM Atrial Rate : 061 BPM P-R Int : 164 ms QRS Dur : 086 ms QT Int : 414 ms P-R-T Axes : 019 010 020 degrees QTc Int : 416 ms Normal sinus rhythm Cannot rule out Anterior infarct (cited on or before 30-DEC-2023) Abnormal ECG When compared with ECG of 20-JUN-2022 12:47, Questionable change in initial forces of Septal leads Referred By: Generic ED Physician Electronically Signed By:Trever Baer
--- NOTE | ~2023-12-30 | CT_ITS ---
EXAMINATION: CT ANGIOGRAM OF THE CHEST WITH AND WITHOUT CONTRAST (CT PULMONARY ANGIOGRAM FOR PE) CLINICAL INFORMATION: Reason for Exam Chest pain, shortness of breath, elevated D-dimer(580) COMPARISON: CT chest 12/10/2022, CT angiogram chest 06/20/2022 TECHNIQUE: Prior to contrast administration, noncontrast localization images were obtained. Subsequently, multidetector volumetric imaging was performed from the thoracic inlet to below the diaphragms following the administration of 85 mL Omnipaque 350 intravenous contrast. No contrast reaction reported Sagittal, coronal, and MIP oblique sagittal reformatted images were obtained on the CT workstation, uploaded to PACS, and reviewed. This CT examination was performed using dose optimization techniques as appropriate, variously including the following: *Automated exposure control *Adjustment of mA and/or kV according to patient size (this includes techniques or standardized protocols for targeted exams where dose is matched to indication/reason for exam; i.e. extremities or head) *Use of iterative reconstruction technique Total exam dose-length product 350 mGy-cm FINDINGS: QUALITY OF STUDY/CONTRAST BOLUS: Satisfactory. PULMONARY ARTERIES: No pulmonary emboli. THORACIC AORTA: No aneurysm. LUNG: Small benign-appearing 4 mm right upper lobe perifissural nodule (7:180). No focal consolidation, worrisome nodules or worrisome masses. PLEURA: No pleural effusion or pneumothorax. MEDIASTINUM: Normal heart size. No pericardial effusion. No hilar or mediastinal lymphadenopathy. No evidence of septal bowing or right heart strain. CORONARY ARTERY CALCIFICATION: None visualized on this study. CHEST WALL/AXILLA: No axillary or internal mammary lymphadenopathy. OSSEOUS STRUCTURES: No acute or suspicious osseous abnormality. UPPER ABDOMEN: Status post gastric sleeve. Probable hepatic steatosis. No reflux of contrast into the hepatic veins to suggest elevated right heart pressures. CT/CT angio chest PE protocol IMPRESSION: No evidence of PE VTE: negative
[2023-12-30 21:38] VITALS: BP 159/84; PULSE 65; RESP 20; TEMP 36.6; O2SAT 100; BMI 37.2
[2023-12-30 21:54] LABS: MANUAL DIFF FLAG NO
[2023-12-30 21:55] LABS: Basophils Absolute Auto 0.1 X10*3/uL (0.0-0.2); Basophils Percent Auto 0.6 % (0-2); Eosinophils Absolute Auto 0.1 X10*3/uL (0.0-0.4); Eosinophils Percent Auto 0.8 % (0-4); Hematocrit 32.9 % (37.0-47.0); Hemoglobin 10.4 g/dl (12.0-16.0); Imm Gran Abs Auto 0.02 X10*3/uL (0.00-0.03); Imm Gran Pct Auto 0.3 % (0.0-0.4); Lymphocytes Absolute Auto 2.2 X10*3/uL (1.2-4.9); Lymphocytes Percent Auto 27.9 % (20-40); Mean Corpuscular HGB Conc 31.6 g/dl (31.0-35.0); Mean Corpuscular Hemoglobin 24.9 pg (27.0-33.0); Mean Corpuscular Volume 78.9 fL (80.0-98.0); Mean Platelet Volume 10.2 fL (9.4-12.3); Monocytes Absolute Auto 0.6 X10*3/uL (0.1-1.2); Monocytes Percent Auto 7.9 % (2-11); Neutrophils Absolute Auto 4.9 x10*3/uL (2.0-8.3); Neutrophils Percent Auto 62.5 % (45-73); Platelet Count 369 X10*3/uL (160-400); Red Blood Count 4.17 X10*6/uL (4.20-5.50); Red Cell Distribution Width 16.4 % (11.0-16.0); White Blood Count 7.9 X10*3/uL (4.8-10.8)
[2023-12-30 22:04] LABS: INTERNATIONAL NORM RATIO 0.9 (0.9-1.1); Prothrombin Time 11.1 SEC (11.1-13.3)
[2023-12-30 22:06] LABS: D Dimer High Sensitivity 580 NG/ML
[2023-12-30 22:09] LABS: Alanine Aminotransferase 16 U/L (0-31); Albumin Level 3.8 g/dL (3.5-5.0); Alkaline Phosphatase 112 U/L (39-117); Anion Gap 14 (12-20); Aspartate Amino Transferase 20 U/L (5-31); Bilirubin Total 0.2 mg/dL (0.0-1.0); Blood Urea Nitrogen 16 mg/dL (9-16); Calcium 9.7 mg/dL (8.4-10.2); Carbon Dioxide 23 mmol/L (22-29); Chloride 108 mmol/L (96-108); Creatinine Clr Calc Pharmacy 86.1; Estimated Glomerular Filt Rate > 60; Glucose Random 89 mg/dL (60-115); Potassium 4.1 mmol/L (3.3-5.1); Sodium 141 mmol/L (135-145); Total Protein 7.1 g/dL (6.5-8.0)
[2023-12-30 22:16] LABS: Troponin-I High Sensitivity < 2.7 ng/L (<3.5-17.0)
--- OUTSIDE RECORDS SUMMARY | 2023-12-30 22:22 | XMS_ITS | Continuity of Care Document ---
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 Name Role Phone David Almaraz MD Primary Care Physician Encounter [facility] [place] [facility] [place] Date(s): 11/14/19 - 11/24/[address] [address]- [facility] Attending Physician: Admtr, [id number] Admitting Physician: AdmtrShaw Referring Physician: Admtr, [id number] Allergies, Adverse Reactions, Alerts Substance Reaction Severity Status Adhesive Bandage Rash Active Cats Itchy SOB - Shortness of breath Active Dogs SOB - Shortness of b reath Itchy Active Dust SOB - Shortness of b reath Itchy Active Latex RASH Active Mold Itchy SOB - Shortness of breath Active Medications albuterol/ipratropium 1 puff, Inhalation, 4 times a day, Maintenance, 05/23/19 7:47:58 EDT, albuterol/ipratropium Start Date: 05/23/19 Status: Ordered Breo Ellipta 100 mcg-25 mcg/inh inhalation powder 1 puffs, Inhalation, Daily, 0 Refills, Maintenance, 05/16/19 9:56:58 EDT Start Date: 05/16/19 Status: Ordered Colace sodium 100 mg oral capsule 100 mg, 1, capsule, By Mouth, 2 times a day, Refills 0, Maintenance, 05/23/19 7:47:49 EDT Start Date: 05/23/19 Status: Ordered Combivent Respimat 20 mcg-100 mcg/inh inhalation aerosol 1 puffs, Inhalation, 4 times a day, 0 Refills, Maintenance, 05/16/19 9:56:18 EDT Start Date: 05/16/19 Status: Ordered DuoNeb 3 mg-0.5 mg/3 ml inhalation solution 3 mL, Inhalation, 4 times a day, 0 Refills, Maintenance, 09/29/13 1:05:29 Start Date: 09/29/13 Status: Ordered Flonase 50 mcg/inh nasal spray 1 sprays, Nares, Both, 2 times a day, 0 Refills, Maintenance, 09/29/13 1:07:08 Start Date: 09/29/13 Status: Ordered fluticasone-vilanterol 1 puff, Inhalation, Daily, Maintenance, 05/23/19 7:48:02 EDT, fluticasone-vilanterol Start Date: 05/23/19 Status: Ordered gabapentin 300 mg oral capsule 300 mg, By Mouth, Daily at bedtime, Refills 0, Maintenance, 05/23/19 7:47:51 EDT Start Date: 05/23/19 Status: Ordered hydroxyzine hydrochloride 25 mg oral tablet 1 tablet = 25 mg, By Mouth, 3 times a day, 0 Refills, Maintenance, 09/29/13 1:06:19 Start Date: 09/29/13 Status: Ordered Prilosec 20 mg oral enteric coated capsule 1 capsule = 20 mg, By Mouth, Daily, 0 Refills, Maintenance Start Date: 10/02/11 Status: Ordered ranitidine 300 mg oral tablet 1 tablet = 300 mg, By Mouth, Daily at bedtime, # 30 tablet, 0 Refills, Maintenance, 09/28/13 22:23:34, Tablet Start Date: 09/28/13 Status: Ordered Singulair 10 mg oral tablet 1 tablet = 10 mg, By Mouth, Daily, 0 Refills, Maintenance, 10/02/11 11:22:54 EST Start Date: 10/02/11 Status: Ordered Spiriva HandiHaler 18 mcg Inhalation Capsule 1 capsule, Inhalation, Daily, # 90 capsule, 0 Refills, Maintenance, 05/16/19 9:55:52 EDT Start Date: 05/16/19 Status: Ordered tiotropium 1, capsule, Inhalation, Daily, Maintenance, 05/23/19 7:48:05 EDT, tiotropium Start Date: 05/23/19 Status: Ordered Vitamin D3 oral tablet 1 tablet = 400 International_Units, By Mouth, Daily, # 30 tablet, 0 Refills, Maintenance, 05/16/19 9:55:21 EDT, Tablet Start Date: 05/16/19 Status: Ordered Medical Equipment Implanted Date:05/20/19Target Site:Ankle Right Description Quantity MRI Company Model Bone Putty DBM, AlloSync, 2. 5 ml, Human Allograft 1 [employer] Unknown HASEEB:No Information Assigning Authority: FDA
--- OUTSIDE RECORDS SUMMARY | 2023-12-30 22:22 | XMS_ITS | Continuity of Care Document ---
Author Organization [facility] ter Address [address] [place] [address]- Care Team Providers Care Rn Otolaryngology Name Role Phone Gt Prsecott III, MD Primary Care Physician [phone] [place] [facility] [place] - 07/04/[address] [id number] Discharge Disposition: A-D/C Home Attending Physician: Carey Villarreal MD Admitting Physician: Carey Villarreal MD Referring Physician: Carey Villarreal MD Allergies, Adverse Reactions, Alerts Substance Reaction Severity Status Adhesive Bandage Rash Active Cats Itchy SOB - Shortness of breath Active Dogs SOB - Shortness of b reath Itchy Active Dust SOB - Shortness of b reath Itchy Active Latex RASH Active Mold Itchy SOB - Shortness of breath Active Medications acetaminophen 500 mg oral tablet 2 tablet = 1,000 mg, By Mouth, Every 8 hours, PRN for pain, for 15 days, # 90 tablet, 0 Refills, Acute 07/18/21 7:22:00 EST, 07/03/21 7:22:00 EST, Tablet, [facility], Partial fill upon patient request if the prescription is for a schedul... Start Date: 07/03/21 Stop Date: 07/18/21 Status: Ordered Advair HFA 230 mcg / 21 mcg 2 puffs, Inhalation, 2 times a day, # 60 each, 0 Refills, Maintenance, 04/08/21 8:33:00 EDT, Aerosol, Partial fill upon patient request if the prescription is for a schedule II opioid drug. Start Date: 04/08/21 Status: Ordered aspirin 325 mg oral delayed release tablet 325 mg, 1, tablet, By Mouth, Daily, # 30 tablet, Refills 0, Tot. Refills 0, Maintenance, 07/03/21 7:22:00 EST, Route to Pharmacy Electronically, [facility], Partial fill upon patient request if the prescription is for a schedule II opioi... Start Date: 07/03/21 Status: Ordered BuPROpion SR Tablet = 150 mg, By Mouth, Daily in AM, 0 Refills, Maintenance, 01/23/20 11:38:00 EDT, SR Tablet Start Date: 01/23/20 Status: Ordered calcium citrate 950 mg oral tablet 1 tablet = 950 mg, By Mouth, 2 times a day, # 100 tablet, 0 Refills, Maintenance, 01/23/20 11:40:00EDT, Tablet Start Date: 01/23/20 Status: Ordered CombIVENT Inhaler 1 puff, Inhalation, PRN, Refills 0, Maintenance, 06/26/21 18:06:00 EDT Start Date: 06/26/21 Status: Ordered CPAP Senior Accounting Analyst, 06/26/21 17:59:00 EDT, Supply Start Date: 06/26/21 Status: Ordered DuoNeb 3 mg-0.5 mg/3 ml inhalation solution 3 mL, Inhalation, 4 times a day, 0 Refills, Maintenance, 09/29/13 1:05:29 Start Date: 09/29/13 Status: Ordered hydroxyzine hydrochloride 25 mg oral tablet 1 tablet = 25 mg, By Mouth, 2 times a day, 0 Refills, Maintenance, 09/29/13 1:06:19 EST Start Date: 09/29/13 Status: Ordered ibuprofen 800 mg oral tablet 800 mg, 1, tablet, By Mouth, 3 times a day, PRN, Refills 0, Maintenance, Pain , Severe, 04/08/21 8:37:00 EDT, Partial fill upon patient request if the prescription is for a schedule II opioid drug. Start Date: 04/08/21 Status: Ordered ketotifen 0.025% ophthalmic solution 1 drops, Eyes, Both, Every 12 hours, PRN Dry Eyes, # 5 mL, 0 Refills, Maintenance, 04/08/21 8:36:00EDT, Ophth Solution, Partial fill upon patient request if the prescription is for a schedule II opioid drug. Start Date: 04/08/21 Status: Ordered loratadine 10 mg oral tablet 10 mg, 1, tablet, By Mouth, Daily in AM, Refills 0, Maintenance, 01/24/20 8:40:00 EDT Start Date: 01/24/20 Status: Ordered mepolizumab 100 mg subcutaneous injection See Instructions, 100 mg Subcutaneous Infusion once every 28 days last dose 06/05/2021, 0 Refills, Maintenance, 04/08/21 8:34:00 EDT, Partial fill upon patient request if the prescription is for a schedule II opioid drug. Start Date: 04/08/21 Status: [place]dered [facility] [place] herbalite [place], By Mouth, Daily in AM, Refills 0, Maintenance, 06/26/21 18:00:00 EDT, Supply Start Date: 06/26/21 Status: Ordered naltrexone 50 mg oral tablet 1 tablet = 50 mg, By Mouth, Daily in AM, given to control appetite, # 30 tablet, 0 Refills, Maintenance, 04/08/21 8:35:00 EDT, Tablet, Partial fill upon patient request if the prescription is for a schedule II opioid drug. Start Date: 04/08/21 Status: Ordered oxyCODONE 5 mg oral tablet See Instructions, PRN, 1-2 tablet By Mouth Every 4- 6 hours, # 42 tablet, Refills 0, Tot. Refills 0, Acute 07/08/21 7:22:00 EST, as needed for pain, 07/03/21 7:22:00 EST, Instructions Replace Required Details, Route to Pharmacy Electronically, [facility]... Start Date: 07/03/21 Stop Date: 07/08/21 Status: Ordered OxyCODONE IR Tablet 5 mg, Tablet, By Mouth, Every 4 hours, PRN for Pain , Mild, Routine, 07/03/21 13:43:00 EST Start Date: 07/03/21 Stop Date: 07/10/21 Status: Ordered Prilosec 20 mg oral enteric coated capsule 1 capsule = 20 mg, By Mouth, Daily, 0 Refills, Maintenance Start Date: 10/02/11 Status: Ordered Singulair 10 mg oral tablet 1 tablet = 10 mg, By Mouth, Daily at bedtime, 0 Refills, Maintenance, 10/02/11 11:22:54 EST Start Date: 10/02/11 Status: Ordered Spiriva HandiHaler 18 mcg Inhalation Capsule 1 capsule, Inhalation, Daily in AM, # 90 capsule, 0 Refills, Maintenance, 05/16/19 9:55:52 EDT Start Date: 05/16/19 Status: Ordered Vitamin D3 oral tablet 1 tablet = 400 International_Units, By Mouth, Daily, # 30 tablet, 0 Refills, Maintenance, 05/16/19 9:55:21 EDT, Tablet Start Date: 05/16/19 Status: Ordered Zofran 4 mg oral tablet 1 tablet = 4 mg, By Mouth, Every 8 hours, PRN as needed for nausea/vomiting, # 21 tablet, 0 Refills, Maintenance, 07/03/21 7:22:00 EST, Tablet, [facility], Partial fill upon patient request if the prescription is for a schedule II opioid... Start Date: 07/03/21 Stop Date: 07/10/21 Status: Ordered Problem List Condition Effective Dates Status Health Status Inform ant Obese class I(Confirmed) Active Vital Signs Most recent to oldest [Reference Range]: 1 2 3 Height 154.94 cm (07/04/21 3:31 AM) 154.94 cm (07/04/21 12:22 AM) 154.94 cm (07/03/21 6:15 PM) Weight 79 kg (07/03/21 6:15 PM) 79 kg (07/03/21 7:31 AM) 79.09 kg (06/26/21 6:27 PM) Oxygen Saturation [94-100 %] 100 % (07/04/21 6:50 AM) 100 % (07/04/21 3:31 AM) 99 % (07/04/21 12:22 AM) Pulse Rate [55-90 bpm] 58 bpm (07/04/21 6:50 AM) 60 bpm (07/04/21 3:31 AM) 63 bpm (07/04/21 12:22 AM) Body Mass Index [18.5-24.99] 32.91 *>HHI* (07/03/21 6:15 PM) 32.91 *>HHI* (07/03/21 7:31 AM) 32.95 *>HHI* (06/26/21 6:27 PM) Blood Pressure [90-138/55-84 mm Hg] 106/64mm Hg (07/04/21 6:50 AM) 116/65mm Hg (07/04/21 3:31 AM) 107/60mm Hg (07/04/21 12:22 AM) Respiratory Rate [16-30 br/min] 16 br/min (07/04/21 2:09 PM) 18 br/min (07/04/21 6:50 AM) 19 br/min (07/04/21 3:31 AM) Temperature [96.8-100.4 DegF] 98.3 DegF (07/04/21 6:50 AM) 98 DegF (07/04/21 3:31 AM) 98 DegF (07/04/21 12:22 AM) Liters per Minute 3 L/min (07/03/21 2:45 PM) 3 L/min (07/03/21 2:30 PM) 3 L/min (07/03/21 2:15 PM) Mode of Delivery (Oxygen) Room air (07/04/21 6:50 AM) Room air (07/04/21 3:31 AM) Room air (07/04/21 12:22 AM) Blood pressure sites Arm, left (07/04/21 6:50 AM) Arm, left (07/04/21 3:31 AM) Arm, left (07/04/21 12:22 AM) Temperature Route Oral (07/04/21 6:50 AM) Oral (07/04/21 3:31 AM) Oral (07/04/21 12:22 AM) Dry Weight 79 kg (07/03/21 6:15 PM) 79 kg (07/03/21 7:31 AM) 79.09 kg (06/26/21 6:27 PM) Weight Obtained Via Standing scale (07/03/21 7:31 AM) Patient/family stated (06/26/21 6:27 PM) Dry Weight Obtained Via Standing scale (07/03/21 7:31 AM) Patient/family stated (06/26/21 6:27 PM) Medical Equipment Implanted Date:07/03/21Target Site:Ankle Right Description Quantity MRI Company Model GRAFT BONE MATRIX VIVIGEN 5CC - LFNT (BL-1500-02) 1 [employer] Unknown HASEEB:No Information Assigning Authority: FDA GRAFT BONE MATRIX VIVIGEN 5CC - LFNT (BL-1500-02) 1 [employer] Unknown HASEEB:No Information Assigning Authority: FDA INJ AUGMENT BONE GRAFT 3ML - WRGT ([id number]) 1 [employer] Unknown HASEEB:No Information Assigning Authority: FDA Implanted Date:05/20/19Target Site:Ankle Right Description Quantity MRI Company Model Bone Putty DBM, AlloSync, 2. 5 ml, Human Allograft 1 [employer] Unknown HASEEB:No Information Assigning Authority: FDA
--- OUTSIDE RECORDS SUMMARY | 2023-12-30 22:22 | XMS_ITS | Continuity of Care Document ---
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 5 ml, Human Allograft 1 [employer] Unknown HASEEB:No Information Assigning Authority: FDA
--- OUTSIDE RECORDS SUMMARY | 2023-12-30 22:22 | XMS_ITS | Continuity of Care Document ---
Author Organization [facility] ter Address [address] [place] [address]- Care Team Providers Care Candy Maker Name Role Phone David Almaraz MD Primary Care Physician Encounter [facility] [place] Date(s): 01/17/20 - 02/16/[address] [address]- [facility] Attending Physician: Shaw Pruett Admitting Physician: AdmShaw cardona Referring Physician: AdmtrShaw Allergies, Adverse Reactions, Alerts Substance Reaction Severity Status Adhesive Bandage Rash Active Cats Itchy SOB - Shortness of breath Active Dogs SOB - Shortness of b reath Itchy Active Dust SOB - Shortness of b reath Itchy Active Latex RASH Active Mold Itchy SOB - Shortness of breath Active Medications acetaminophen 325 mg oral tablet 650 mg, By Mouth, Every 6 hours, Refills 0, Maintenance, 01/24/20 8:39:00 EDT Start Date: 01/24/20 Status: Ordered albuterol/ipratropium 1 puff, Inhalation, 4 times a day, Maintenance, 05/23/19 7:47:58 EDT, albuterol/ipratropium Start Date: 05/23/19 Status: Ordered aspirin 162.5 mg oral capsule, extended release = 325 mg, By Mouth, 2 times a day, 0 Refills, Maintenance, 01/24/20 8:39:00 EDT, ER Capsule Start Date: 01/24/20 Status: Ordered benralizumab 30 mg/mL subcutaneous solution = 30 mg, Subcutaneous Infusion, Every 30 days, 0 Refills, Maintenance, 01/23/20 11:08:00 EDT Start Date: 01/23/20 Status: Ordered Breo Ellipta 100 mcg-25 mcg/inh inhalation powder 1 puffs, Inhalation, Daily, 0 Refills, Maintenance, 05/16/19 9:56:58 EDT Start Date: 05/16/19 Status: Ordered BuPROpion SR Tablet = 150 mg, By Mouth, Daily in AM, 0 Refills, Maintenance, 01/23/20 11:38:00 EDT, SR Tablet Start Date: 01/23/20 Status: Ordered calcium citrate 950 mg oral tablet 1 tablet = 950 mg, By Mouth, 2 times a day, # 100 tablet, 0 Refills, Maintenance, 01/23/20 11:40:00EDT, Tablet Start Date: 01/23/20 Status: Ordered celecoxib 200 mg oral capsule 1 capsule = 200 mg, By Mouth, Daily, 0 Refills, Maintenance, 01/24/20 8:42:00 EDT, Capsule Start Date: 01/24/20 Status: Ordered Colace sodium 100 mg oral capsule 100 mg, 1, capsule, By Mouth, 2 times a day, Refills 0, Maintenance, 05/23/19 7:47:49 EDT Start Date: 05/23/19 Status: Ordered DuoNeb 3 mg-0.5 mg/3 ml inhalation solution 3 mL, Inhalation, 4 times a day, 0 Refills, Maintenance, 09/29/13 1:05:29 Start Date: 09/29/13 Status: Ordered Flonase 50 mcg/inh nasal spray 1 sprays, Nares, Both, 2 times a day, 0 Refills, Maintenance, 09/29/13 1:07:08 Start Date: 09/29/13 Status: Ordered fluticasone-vilanterol 200-25 mcg, Inhalation, Daily, Maintenance, 05/23/19 7:48:02 EDT, fluticasone-vilanterol Start Date: 05/23/19 Status: Ordered hydroxyzine hydrochloride 25 mg oral tablet 1 tablet = 25 mg, By Mouth, 3 times a day, 0 Refills, Maintenance, 09/29/13 1:06:19 Start Date: 09/29/13 Status: Ordered loratadine 10 mg oral tablet 10 mg, 1, tablet, By Mouth, Daily, Refills 0, Maintenance, 01/24/20 8:40:00 EDT Start Date: 01/24/20 Status: Ordered Maalox Plus Liquid 30 mL, By Mouth, Every 4 hours, PRN Other, Heartburn, 0 Refills, Maintenance, 01/24/20 8:39:00 EDT,Suspension Start Date: 01/24/20 Status: Ordered Milk of Magnesia Liquid 30 mL, By Mouth, Daily, PRN Constipation, 0 Refills, Maintenance, 01/24/20 8:40:00 EDT, Suspension Start Date: 01/24/20 Status: Ordered MiraLax Powder 1 pack/packet = 17 Gm, By Mouth, Daily, 0 Refills, Maintenance, 01/24/20 8:40:00 EDT, Powder Start Date: 01/24/20 Status: Ordered ondansetron 4 mg oral tablet, disintegrating = 4 mg, By Mouth, Every 6 hours, PRN Nausea & Vomiting, # 20 tablet, 0 Refills, Maintenance, 01/24/20 8:51:00 EDT, Tablet, [facility], 154, cm, 01/24/20 7:38:00 EDT, Height, 90.3, kg, 01/23/20 8:52:00 EDT, Dry Weight Start Date: 01/24/20 Stop Date: 01/29/20 Status: Ordered oxyCODONE 10 mg oral tablet 1 tablet = 10 mg, By Mouth, Every 4 hours, PRN Pain , Severe, 0 Refills, Maintenance, 01/24/20 8:40:00 EDT, Tablet, Partial fill upon patient request Start Date: 01/24/20 Status: Ordered oxyCODONE 5 mg oral tablet 5 mg, 1, tablet, By Mouth, Every 4 hours, PRN, Refills 0, Tot. Refills 0, Maintenance, Pain , Moderate, 01/24/20 8:40:00 EDT, Partial fill upon patient request Start Date: 01/24/20 Status: Ordered Prilosec 20 mg oral enteric coated capsule 1 capsule = 20 mg, By Mouth, Daily, 0 Refills, Maintenance Start Date: 10/02/11 Status: Ordered ProAir HFA 90 mcg/inh inhalation aerosol with adapter 2, puffs, Inhalation, Every 4 hours, PRN, # 8.5 Gm, Refills 0, Maintenance, 01/23/20 11:46:00 EDT, Aerosol Start Date: 01/23/20 Status: Ordered senna 187 mg oral tablet 1 tablet = 8.6 mg, By Mouth, Daily at bedtime, 0 Refills, Maintenance, 01/24/20 8:40:00 EDT, Tablet Start Date: 01/24/20 Status: Ordered Singulair 10 mg oral tablet [...] EDT, tiotropium Start Date: 05/23/19 Status: Ordered traMADol 50 mg oral tablet 1 tablet = 50 mg, By Mouth, Every 6 hours, PRN Pain , Mild, 0 Refills, Maintenance, 01/24/20 8:40:00 EDT, Tablet Start Date: 01/24/20 Status: Ordered Vitamin D3 oral tablet 1 [...]
--- OUTSIDE RECORDS SUMMARY | 2023-12-30 22:22 | XMS_ITS | Continuity of Care Document ---
Author Organization [facility] ter Address [address] [place] [address]- Care Team Providers Care Glass Novelty Maker Name Role Phone David Almaraz MD Primary Care Physician [place] [facility] [place] 01/24/[address] [address]- [facility] Discharge Disposition: A-Transfer VNA/Home Health Attending Physician: Mike Keith MD Admitting Physician: [...] 0 Refills, Maintenance, 01/24/20 8:51:00 EDT, Tablet, [facility], 154, cm, 01/24/20 7:38:00 [...] 5 mg oral tablet See Instructions, PRN, Take 1-2 tablets By Mouth Every 4 hours as needed, # 42 tablet, Refills 0, Tot. Refills 0, Acute 01/28/20 8:49:00 EDT, Pain , Moderate, 01/24/20 8:48:00 EDT, Instructions Replace Required Details, Route to Pharmacy Electronicall... Start Date: 01/24/20 Stop Date: 01/28/20 Status: Ordered Prilosec 20 mg oral enteric [...] EDT, Tablet Start Date: 01/24/20 Status: Ordered traMADol 50 mg oral tablet See Instructions, PRN Pain , Mild, 1 tablet By Mouth Every 4 -6 hours as needed, # 42 tablet, 0 Refills, Acute 01/31/20 8:50:00 EDT, 01/24/20 8:49:00 EDT, Tablet, [facility], 154, cm, 01/24/20 7:38:00 EDT, Height, 90.3, kg, 01/23/20 8:52... Start Date: 01/24/20 Stop Date: 01/31/20 Status: Ordered Vitamin D3 oral tablet 1 tablet = 400 International_Units, By Mouth, Daily, # 30 tablet, 0 Refills, Maintenance, 05/16/19 9:55:21 EDT, Tablet Start Date: 05/16/19 Status: Ordered Results Radiology Reports * Exam Date Time Procedure Performing Provider Status 01/23/20 10:44 PM Knee 1 or 2 Views Right Penny Lawson david; Auth (Verified) Notes: (Knee 1 or 2 Views Right) Reason For Exam: Postop;Post op - please shoot LATERAL xray of knee RESULT: Knee 1 or 2 Views Right Knee 1 or 2 Views Right 1view. Reason: Postop; Post op - please shoot LATERAL xray of knee; Clinical Question(s): Position Fixation COMPARISON: None. FINDINGS: Total knee arthroplasty with intact hardware and normal alignment on the lateral view. IMPRESSION: No apparent complication. WSN: [id number] Ordering Physician: Mike Keith Dictated By: Rodo Bethea MD Dictated Date/Time: 01/23/20 10:47 p Reviewed By: Rodo Bethea MD Signed By: Rodo Bethea MD Signed Date/Time: 01/23/20 10:47 pm Transcribed By: DENYS Transcribed Date/Time: 01/23/20 10:46 pm * Exam Date Time Procedure Performing Provider Status 01/23/20 4:09 PM Knee 1 or 2 Views Right Yulisa Plummer; Auth (Verified) Notes: (Knee 1 or 2 Views Right) Reason For Exam: arthroplasty right total knee replacement RESULT: Knee 1 or 2 Views Right Knee 1 or 2 Views Right, 1 views Reason: arthroplasty right total knee replacement COMPARISON: None. FINDINGS: Knee prosthesis appears to be in typical location on this single view study. IMPRESSION: Unremarkable single view postop film. WSN: [id number] Ordering Physician: Mike Keith Dictated By: Rajinder Flores MD Dictated Date/Time: 01/23/20 4:13 pm Reviewed By: Rajinder Flores MD Signed By: Rajinder Flores MD Signed Date/Time: 01/23/20 4:13 pm Transcribed By: DENYS Transcribed Date/Time: 01/23/20 4:10 pm Vital Signs Most recent to oldest [Reference Range]: 1 2 3 Height 154 cm (01/24/20 12:14 PM) 154 cm (01/24/20 7:38 AM) 154 cm (01/24/20 4:35 AM) Weight 90.3 kg (01/23/20 11:41 AM) 90.3 kg (01/23/20 8:42 AM) Oxygen Saturation [94-100 %] 96 % (01/24/20 12:14 PM) 100 % (01/24/20 7:38 AM) 100 % (01/24/20 4:35 AM) Pulse Rate [55-90 bpm] 61 bpm (01/24/20 12:14 PM) 52 bpm *L* (01/24/20 7:38 AM) 55 bpm (01/24/20 4:35 AM) Body Mass Index [18.5-24.99] 38.08 *>HHI* (01/23/20 11:41 AM) 38.08 *>HHI* (01/23/20 8:42 AM) Blood Pressure [90-138/55-84 mm Hg] 123/71mm Hg (01/24/20 12:14 PM) 182/95mm Hg *H* (01/24/20 7:38 AM) 148/73mm Hg *H* (01/24/20 4:35 AM) Respiratory Rate [16-30 br/min] 18 br/min (01/24/20 3:47 PM) 18 br/min (01/24/20 3:47 PM) 18 br/min (01/24/20 12:14 PM) Temperature [96.8-100.4 DegF] 97.8 DegF (01/24/20 12:14 PM) 97.2 DegF (01/24/20 7:38 AM) 97.5 DegF (01/24/20 4:35 AM) Liters per Minute 2 L/min (01/23/20 6:45 PM) 2 L/min (01/23/20 6:30 PM) 2 L/min (01/23/20 6:15 PM) Mode of Delivery (Oxygen) Room air (01/24/20 7:38 AM) Room air (01/24/20 4:35 AM) Room air (01/23/20 11:20 PM) Blood pressure sites Arm, right (01/23/20 7:47 PM) Arm, right (01/23/20 11:41 AM) Arm, right (01/23/20 8:42 AM) Temperature Route Oral (01/24/20 12:14 PM) Oral (01/24/20 7:38 AM) Oral (01/24/20 4:35 AM) Dry Weight 90.3 kg (01/23/20 8:42 AM) Medical Equipment Implanted Date:05/20/19Target Site:Ankle Right Description Quantity MRI Company Model Bone Putty DBM, AlloSync, 2. 5 ml, Human Allograft 1 [employer] Unknown HASEEB:No Information Assigning Authority: FDA
--- OUTSIDE RECORDS SUMMARY | 2023-12-30 22:22 | XMS_ITS | Continuity of Care Document ---
Author Organization [facility] Address [address] [place] [address]- Care Team Providers Care District Gauger Name Role Phone David Almaraz MD Primary Care Physician [phone] Encounter 01/25/20 - 02/03/20 [facility] [address] [place] [address]- [facility] Discharge Disposition: GOALS MET Allergies, Adverse Reactions, Alerts Substance Reaction Severity [...] Refills, Maintenance, 01/24/20 8:51:00 EDT, Tablet, [facility], 154, cm, 01/24/20 7:38:00 [...]
--- OUTSIDE RECORDS SUMMARY | 2023-12-30 22:22 | XMS_ITS | Continuity of Care Document ---
Author Organization [facility] ter Address [address] [place] [address]- Care Team Providers Care Project Engineer Chemicals Name Role Phone David Almaraz MD Primary Care Physician [facility] [id number] Date(s): 01/23/20 - 02/22/[address] [address]- [facility] Attending Physician: Not on Staff, Attending MD Admitting Physician: Not on Staff, Admitting MD Referring Physician: Not on Staff, Referring MD Allergies, Adverse Reactions, Alerts Substance Reaction [...] 0 Refills, Maintenance, 01/24/20 8:51:00 EDT, Tablet, [facility], 154, cm, 01/24/20 7:38:00 [...]
--- OUTSIDE RECORDS SUMMARY | 2023-12-30 22:22 | XMS_ITS | Continuity of Care Document ---
Author Organization [facility] Address [address] [place] [address]- Care Team Providers Care Silk Winding Machine Operator Name Role Phone David Almaraz MD Primary Care Physician Yordan whaley Encounter 03/02/20 - 04/20/20 [facility] [address] [place] [address]- [facility] Discharge Disposition: GOALS MET Allergies, Adverse Reactions, [...] 0 Refills, Maintenance, 01/24/20 8:51:00 EDT, Tablet, [facility], 154, cm, 01/24/20 7:38:00 [...]
--- NOTE | 2023-12-30 22:37 | ED.GENADULT ---
HPI - General Adult General Chief complaint: Recheck/Abnormal Lab/Rx Stated complaint: ref by PCP for blood clot? Time Seen by Provider: 12/30/23 22:07 Source: patient Mode of arrival: ambulatory Limitations: no limitations History of Present Illness HPI narrative: Patient is a 53-year-old female who presents to the emergency department for evaluation. She has been endorsing diffuse anterior chest pain and shortness of breath over the past 4 days with nonproductive cough and chills without fever. Reportedly she went to her telephone directory distributor driver office 2 days ago to have allergy shots, due to her symptoms they would not perform her shots. Instead they decided to obtain labs and a chest x-ray. She was able to get a follow-up phone call from them today regarding this and she was advised to come to the emergency department due to an elevated D-dimer to rule out pulmonary embolism. By her report, she was diagnosed with a pulmonary embolism approximately 2 years ago, she states she had taken Eliquis for 1.5 years. She does not know the cause of the pulmonary embolism reports seeing a specialist at [facility] who she does not recall the name of but reports that they had said ?you are okay? and they did not think she actually had a clot. Related Data Home Medications ?Medication ?Instructions ?Recorded ?Confirmed azelastine 137 mcg (0.1 %) nasal 2 spray intranasal BID 12/26/21 05/06/23 spray aerosol calcium citrate 200 mg (950 mg) 1 tab PO DAILY 12/26/21 05/06/23 tablet cholecalciferol (vitamin D3) 25 1 tab PO DAILY 12/26/21 05/06/23 mcg (1,000 unit) tablet fluticasone propionate 230 1 puff inhalation BID 12/26/21 05/06/23 mcg-salmeterol 21 mcg/actuation HFA inhaler (Advair HFA) hydroxyzine HCl 25 mg tablet 1 tab PO Q8H PRN itch 12/26/21 05/06/23 ketotifen fumarate 0.025 % (0.035 1 drp ophthalmic (eye) BID PRN itch 12/26/21 05/06/23 %) eye drops loratadine 10 mg tablet 1 tab PO DAILY 12/26/21 05/06/23 montelukast 10 mg tablet 1 tab PO BEDTIME 12/26/21 05/06/23 omeprazole 40 mg capsule,delayed 1 cap PO DAILY@0630 12/26/21 05/06/23 release tiotropium bromide 1.25 2 puff PO DAILY 12/26/21 05/06/23 mcg/actuation mist for inhalation (Spiriva Respimat) ipratropium 20 mcg-albuterol 100 1 puff inhalation QID 01/01/22 05/06/23 mcg/actuation mist for inhalation (Combivent Respimat) folic acid 1 mg tablet 1 mg PO DAILY 07/24/22 05/06/23 tezepelumab-ekko 210 mg/1.91 mL mg subcut 10/15/22 05/06/23 (110 mg/mL) subcutaneous syringe (Williamzspire) ibuprofen 800 mg tablet 800 mg PO TID PRN 05/06/23 05/06/23 bupropion HCl 300 mg 24 hr tablet, 300 mg PO DAILY 12/22/23 extended release naltrexone 50 mg tablet 50 mg PO DAILY 12/22/23 Previous Rx's ?Medication ?Instructions ?Recorded guaifenesin 1,200 mg tablet, 1,200 mg PO BID #10 tabs 06/03/23 extended release 12 hr (Mucus Relief ER) ipratropium bromide 0.02 % 2.5 ml inhalation QID PRN for 12/24/23 solution for inhalation wheezing #125 mL azithromycin 250 mg tablet See Rx Instructions PO .COMPLEX #6 12/31/23 tabs prednisone 20 mg tablet 40 mg (2 x 20 mg) PO DAILY 5 days 12/31/23 #10 tabs Allergies Allergy/AdvReac Type Severity Reaction Status Date / Time latex [Latex] Allergy Mild UNKNOWN Verified 12/30/23 21:41 cats, pollen, mold Allergy Unknown Unknown Uncoded 12/22/23 09:55 Latex Allergy Unknown Unknown Uncoded 12/22/23 09:55 Review of Systems Review of Systems: Yes all other systems are reviewed and are negative PMFSH Past Medical History Attestation statement: The following information was validated with the patient. Source: old records reviewed Medical History Bronchitis SPARKLE (obstructive sleep apnea) Allergic rhinitis Asthma Pulmonary embolism Pulmonary cavitary lesion COPD (chronic obstructive pulmonary disease) Pulmonary cavitary lesion Asthma Surgical History H/O gastric sleeve History of partial hysterectomy History of surgery on wrist History of ankle surgery History of knee replacement Family History Family History Father Prostate cancer Social History Social History Household Members: Spouse and Family Housing: House Are you a primary clinical care leader to a significant other at home: Yes (mother) Do you presently have visiting nurse or other home services: Yes Unable to assess alcohol history related to: Unknown Alcohol intake: never Patient Tobacco Use Status: Never used Tobacco Advance Directives: Yes Advance Directives Information Provided: No Advance Directives on File: No Advance Directives Date on File: 12/26/21 Do you have a plan to hurt others: No Plan service: No Current occupational status: disabled Physical Exam ED Vital Signs: Vital Signs - 24 hr 12/30/23 21:38 12/30/23 22:52 12/31/23 00:10 Temperature 98 F 97.7 F 97.9 F Pulse Rate 65 61 61 Respiratory Rate 20 14 16 Blood Pressure 159/84 H 133/82 154/76 H Pulse Oximetry 100 99 96 Oxygen Delivery Method Room Air Room Air Room Air BMI result Body Mass Index 37.2 Appearance: Alert.?Oriented to person, place and time. No acute distress.?Normal affect. Eyes: Pupils equal, round and reactive to light.? ENT: Pharynx normal.?? Neck: Normal inspection.? Neck supple.?? CVS: Heart sounds normal. Normal heart rate and rhythm.? Pulses normal.?? Respiratory: No respiratory distress.? Lung sounds faint expiratory wheezing in the bilateral upper lobes with a mildly prolonged expiratory phase Abdomen: Soft and non-tender. Normoactive bowel sounds. Skin: Skin warm and dry.? Normal skin color.? Extremities: No lower extremity edema.? No calf ttp? Neuro: Moves all extremities spontaneously. Sensation intact bilaterally. CN II-XII intact. No focal neuro deficits. Ambulates with normal steady gait. Course Reevaluation(s) Reevaluation #1: CTA of the chest is without evidence of pulmonary embolism. High sensitive troponin and EKG is not consistent with ACS Discussed with patient symptoms may be secondary to mild COPD exacerbation. Provide patient with course of azithromycin and short course of prednisone and recommend outpatient follow-up with her PCP/pulmonary/telephone directory distributor driver. All Questions answered. Stable for discharge. Time: 00:49 Medications Administered Discontinued Medications Generic Name Dose Route Start Last Admin Trade Name Freq PRN Reason Stop Dose Admin Iohexol 85 ml 12/30/23 23:18 12/30/23 23:19 Iohexol 350 Mg/Ml 100 Ml Infus..Btl IV 12/30/23 23:19 85 ml ONCE ONE Administration Medical Decision Making Medical Decision Making MDM Narrative: Patient is a 53-year-old female with past medical history of bronchitis, SPARKLE, allergic rhinitis, asthma, COPD, pulmonary embolism, pulmonary cavitary lesion. Upon review of records from [facility] in July of 2022 she was evaluated in the emergency department, CT angio of the chest did not clearly identify pulmonary embolism however she was started on Eliquis and was advised to follow-up with her lead injection mold technician which she subsequently did with recommendations from Dr. Parker for anticoagulants for at least 6 months. She appears fatigued at the time my examination but in no respiratory distress. She is speaking clear full sentences. She has no tachycardia tachypnea or hypoxia. She is faint expiratory wheezing in the bilateral upper lobes with a mildly prolonged expiratory phase. Reviewed labs obtained prior to my assumption of care which reveal no leukocytosis, microcytic anemia which is slightly lower than baseline but does not meet transfusion criteria, no thrombocytopenia. No electrolyte derangement. No CHEYANNE transaminases within normal range. High sensitive troponin below detectable limits. Viral panel is negative. D-dimer is elevated, therefore CT angio of the chest was ordered to further evaluate for pulmonary embolism Differential Diagnosis Differential Diagnoses: The differential diagnosis associated with the presentation includes (Pulmonary embolism, pneumonia, viral syndrome, asthma/COPD exacerbation) Admission/Observation Consideration of admission/observation: Escalation of care including admission/observation considered (See narrative above and course narrative for further detail) Lab Data MDM Lab Attestation statement: I reviewed the patient's lab results. (See narrative above) 12/30/23 21:49 12/30/23 21:49 Labs: Lab Results 12/30/23 12/30/23 Range/Units 21:49 22:49 WBC 7.9 (4.8-10.8) X10*3/uL RBC 4.17 L (4.20-5.50) X10*6/uL Hgb 10.4 L (12.0-16.0) g/dl Hct 32.9 L (37.0-47.0) % MCV 78.9 L (80.0-98.0) fL MCH 24.9 L (27.0-33.0) pg MCHC 31.6 (31.0-35.0) g/dl RDW 16.4 H (11.0-16.0) % Plt Count 369 D (160-400) X10*3/uL MPV 10.2 (9.4-12.3) fL Immature Gran % (Auto) 0.3 (0.0-0.4) % Neut % (Auto) 62.5 (45-73) % Lymph % (Auto) 27.9 (20-40) % Sabine % (Auto) 7.9 (2-11) % Eos % (Auto) 0.8 (0-4) % Baso % (Auto) 0.6 (0-2) % Lymph # (Auto) 2.2 (1.2-4.9) X10*3/uL Sabine # (Auto) 0.6 (0.1-1.2) X10*3/uL Eos # (Auto) 0.1 (0.0-0.4) X10*3/uL Baso # (Auto) 0.1 (0.0-0.2) X10*3/uL Abs Immat Gran (auto) 0.02 (0.00-0.03) X10*3/uL Absolute Neuts (auto) 4.9 (2.0-8.3) x10*3/uL Absolute Nucleated RBC 0.000 (0.0-0.012) X10*3/uL Nucleated RBC % (auto) 0.0 (0.0-0.2) /100WBC PT 11.1 (11.1-13.3) SEC INR 0.9 (0.9-1.1) D-Dimer High Sensitivty 580 NG/ML Sodium 141 (135-145) mmol/L Potassium 4.1 (3.3-5.1) mmol/L Chloride 108 (96-108) mmol/L Carbon Dioxide 23 (22-29) mmol/L Anion Gap 14 (12-20) BUN 16 (9-16) mg/dL Creatinine 0.75 (0.5-1.4) mg/dL Estim Creat Clear Calc 86.1 Estimated GFR > 60 Random Glucose 89 (60-115) mg/dL Calcium 9.7 (8.4-10.2) mg/dL Total Bilirubin 0.2 (0.0-1.0) mg/dL AST 20 (5-31) U/L ALT 16 (0-31) U/L Alkaline Phosphatase 112 (39-117) U/L Troponin I High Sens < 2.7 (<3.5-17.0) ng/L Total Protein 7.1 (6.5-8.0) g/dL Albumin 3.8 (3.5-5.0) g/dL Influenza Type A (PCR) NEGATIVE (Negative) Influenza Type B (PCR) NEGATIVE (Negative) RSV RNA Qual (PCR) NEGATIVE (Negative) SARS-CoV-2 RNA (RT-PCR) NEGATIVE (Negative) Independent Interpretation I performed an independent interpretation of an: EKG Interpretation: Rate: 61 Rhythm: Normal sinus rhythm? Normal P waves.? Normal DINORAH.?? Normal QRS complex.?? ST T wave :??No ST elevation, no ST depression, T-wave inversion in III, aVR qTC:416 prior studies:? May 2022 The study has been interpreted contemporaneously by me. Radiology Impression Discussion of test interpretation with radiology: I have reviewed the radiologist's reading. Radiologist Impression: CT/CT angio chest PE protocol IMPRESSION: No evidence of PE VTE: negative External Record Review External record reviewed: Outpatient record Discharge Plan Discharge Clinical Impression: COPD exacerbation Patient Disposition: Home, Self-Care Instructions: COPD (Chronic Obstructive Pulmonary Disease) (ED) Additional Instructions: Imaging today does not reveal evidence of pulmonary embolism or pneumonia. Blood work and EKG does not show any evidence of heart attack. Symptoms likely secondary to a mild COPD exacerbation, complete entire course of azithromycin and prednisone as prescribed. Continue your inhalers. Follow-up with your primary care provider/specialist. Return back to emergency department any new or worsening symptoms or concerns. Prescriptions: New azithromycin 250 mg tablet See Rx Instructions .ROUTE .COMPLEX Qty: 6 0RF Rx Instructions: For 250 mg dose pack: take 500 mg today (day 1), then 250 mg for 4 days (days 2-5) prednisone 20 mg tablet 40 mg PO DAILY 5 Days Qty: 10 0RF No Action ipratropium bromide 0.02 % solution 2.5 ml inhalation QID PRN (Reason: for wheezing) Qty: 125 3RF Combivent Respimat 20-100 mcg/actuation mist 1 puff inhalation QID ketotifen fumarate 0.025 % (0.035 %) drops 1 drp ophthalmic (eye) BID PRN (Reason: itch) omeprazole 40 mg capsule,delayed release(DR/EC) 1 cap PO DAILY@0630 montelukast 10 mg tablet 1 tab PO BEDTIME hydroxyzine HCl 25 mg tablet 1 tab PO Q8H PRN (Reason: itch) azelastine 137 mcg (0.1 %) aerosol,spray 2 spray intranasal BID loratadine 10 mg tablet 1 tab PO DAILY calcium citrate 200 mg (950 mg) tablet 1 tab PO DAILY Advair HFA 230-21 mcg/actuation HFA aerosol inhaler 1 puff inhalation BID cholecalciferol (vitamin D3) 25 mcg (1,000 unit) tablet 1 tab PO DAILY Spiriva Respimat 1.25 mcg/actuation mist 2 puff PO DAILY guaifenesin [Mucus Relief ER] 1,200 mg tablet extended release 12hr 1,200 mg PO BID Qty: 10 0RF Tezspire 210 mg/1.91 mL (110 mg/mL) syringe subcut folic acid 1 mg tablet 1 mg PO DAILY ibuprofen 800 mg tablet 800 mg PO TID PRN bupropion HCl 300 mg tablet extended release 24 hr 300 mg PO DAILY naltrexone 50 mg tablet 50 mg PO DAILY Referrals: Gt Prescott III, MD [Primary Care Provider] - Print Language: Hebrew
--- NOTE | 2023-12-30 22:46 | PC.NURSE ---
#20 PIV initiated to right AC for CT scan.
[2023-12-30 22:52] VITALS: BP 133/82; PULSE 61; RESP 14; TEMP 36.5; O2SAT 99
--- NOTE | 2023-12-30 22:57 | PC.NURSE ---
Pt to CT.
--- NOTE | 2023-12-30 23:09 | PC.NURSE ---
Pt back from CT
[2023-12-30] MEDS: iohexoL 350 MG/ML 100 ML INFUS..BTL 85 ML IV (23:19)
[2023-12-30 23:32] LABS: Influenza A PCR NEGATIVE (Negative); Influenza B PCR NEGATIVE (Negative); Resp Syncy Virus RNA Qual PCR NEGATIVE (Negative); SARS COV2 PCR INHOUSE NEGATIVE (Negative)
[2023-12-31 00:10] VITALS: BP 154/76; PULSE 61; RESP 16; TEMP 36.6; O2SAT 96
[2023-12-31 01:07] VITALS: BP 149/68; PULSE 60; RESP 18; TEMP 36.6; O2SAT 97
== END 2023-12-31 01:22 | disposition home or self-care (01) ==
PROVIDERS: Nurse Practitioner Family; Emergency Provider Emergency Medicine; PCP Internal Medicine
DX: J44.1 Chronic obstructive pulmonary disease with (acute) exacerbation (principal); R07.89 Other chest pain; R06.02 Shortness of breath; R94.31 Abnormal electrocardiogram [ECG] [EKG]; Z11.52 Encounter for screening for COVID-19; Z20.822 Contact with and (suspected) exposure to COVID-19; Z79.899 Other long term (current) drug therapy
CPT/HCPCS: 0241U; 36415; 71275; 80053; 84484; 85025; 85379; 85610; 93005; 99284; 99285; Q9967

== ENCOUNTER → 2023-12-30 21:51 | Outpatient (BNV) | payer OTHER, SELFPAY | PROVIDERS: Emergency Provider Emergency Medicine; PCP Internal Medicine; Visit Provider Internal Medicine Cardiovascular Disease | DX: R94.31 Abnormal electrocardiogram [ECG] [EKG] (principal) | CPT/HCPCS: 93010 ==

== ENCOUNTER 2024-03-15 10:12 | Emergency (ER) | payer OTHER, SELFPAY ==
--- NOTE | ~2024-03-15 | XR_ITS ---
EXAMINATION: XR RIBS, LEFT CLINICAL INFORMATION: Cough. Pain COMPARISON: None available. TECHNIQUE: 3 views of the left ribs were obtained. FINDINGS: Lungs are clear. No consolidation, pneumothorax, or pleural effusion. The cardiomediastinal silhouette and pulmonary vasculature are normal. There is advanced degenerative change in the left shoulder joint.. Ribs are intact. No fractures are identified. XR/XR ribs LT min 3V w CXR1V IMPRESSION: Advanced degenerative change left shoulder joint. Ribs intact.
--- NOTE | ~2024-03-15 | CT_ITS ---
EXAMINATION: CT ANGIOGRAM OF THE CHEST WITH AND WITHOUT CONTRAST (CT PULMONARY ANGIOGRAM FOR PE) CLINICAL INFORMATION: Reason for Exam elevated dimer, SOB, r/o PE COMPARISON: CT angiogram chest from 11/2023 TECHNIQUE: Prior to contrast administration, noncontrast localization images were obtained. Subsequently, multidetector volumetric imaging was performed from the thoracic inlet to below the diaphragms following the administration of 80 mL Omnipaque 350 intravenous contrast. No contrast reaction reported Sagittal, coronal, and MIP oblique sagittal reformatted images were obtained on the CT workstation, uploaded to PACS, and reviewed. This CT examination was performed using dose optimization techniques as appropriate, variously including the following: *Automated exposure control *Adjustment of mA and/or kV according to patient size (this includes techniques or standardized protocols for targeted exams where dose is matched to indication/reason for exam; i.e. extremities or head) *Use of iterative reconstruction technique Total exam dose-length product 309 mGy-cm FINDINGS: QUALITY OF STUDY/CONTRAST BOLUS: Satisfactory. PULMONARY ARTERIES: No pulmonary emboli. Main pulmonary artery is not enlarged. THORACIC AORTA: No aneurysm. LUNG/PLEURA: Respiratory motion artifact limits evaluation. Stable 3 mm nodular focus in the midportion of the right upper lobe abutting the right minor fissure (series 7, image 193). No new enlarged or suspicious pulmonary nodules or masses are noted. Central airways are patent. No pneumothorax. No large pleural effusion. Bibasilar atelectasis. MEDIASTINUM: Is not enlarged. No pericardial effusion. Coronary artery calcifications are noted. A few calcified mediastinal lymph nodes are noted potentially reflecting sequela of prior granulomatous disease. No evidence of septal bowing or right heart strain. CHEST WALL/AXILLA: No axillary or internal mammary lymphadenopathy. OSSEOUS STRUCTURES: No acute or suspicious osseous abnormality. UPPER ABDOMEN: Postsurgical changes of the stomach. Prominent fatty atrophy of the pancreas. Hepatic steatosis. Small hiatal hernia. No reflux of contrast into the hepatic veins to suggest elevated right heart pressures. CT/CT angio chest PE protocol IMPRESSION: 1. No pulmonary emboli. 2. Stable 3 mm nodular focus in the midportion of the right upper lobe abutting the right minor fissure. No new enlarged or suspicious pulmonary nodules or masses are noted. 3. Postsurgical changes of the stomach. Small hiatal hernia. 4. Prominent fatty atrophy of the pancreas. 5. Hepatic steatosis.
[2024-03-15 10:22] VITALS: BP 150/66; PULSE 70; RESP 22; TEMP 36.7; O2SAT 99; BMI 34.9
--- OUTSIDE RECORDS SUMMARY | 2024-03-15 11:49 | XMS_ITS | Continuity of Care Document ---
Author Organization [facility] Address [address] [place] [address]- Care Team Providers Care [employer] Name Role Phone Kenyon GEORGE MD, Gt Castillo Primary Care Physician [phone] Encounter [facility] Date(s): 03/13/24 - 03/13/[address] [address]- Discharge Disposition: A-D/C Home Attending Physician: Rajinder Powell MD Admitting Physician: Rajinder Powell MD Referring Physician: Not on Staff, Referring MD Allergies, Adverse Reactions, Alerts Substance Reaction Severity Status Adhesive Bandage Rash Active Cats Itchy SOB - Shortness of breath Active Mold Itchy SOB - Shortness of breath Active Dogs SOB - Shortness of b reath Itchy Active Dust SOB - Shortness of b reath Itchy Active Latex RASH Active Medications Advair HFA 230 mcg / 21 mcg [...] tablet, Refills 0, Tot. Refills 0, Maintenance, 11/05/23 10:29:00 EDT, Route to Pharmacy Electronically, [facility]/pharmacy #[id number], Partial fill upon patient requestif the prescription is for a schedule II opioid gilberto... Start Date: 11/05/23 Status: Ordered BuPROpion SR Tablet = 150 mg, By Mouth, Daily in AM, 0 Refills, Maintenance, 01/23/20 11:38:00 EDT, SR Tablet Start Date: 01/23/20 Status: Ordered calcium citrate 950 mg oral tablet 1 tablet = 950 mg, By Mouth, 2 times a day, # 100 tablet, 0 Refills, Maintenance, 01/23/20 11:40:00EDT, Tablet Start Date: 01/23/20 Status: Ordered Combivent Respimat 20 mcg-100 mcg/inh inhalation aerosol 1 puffs, Inhalation, 4 times a day, # 4 Gm, 0 Refills, Maintenance, 11/04/23 10:04:00 EDT, Aerosol,Partial fill upon patient request if the prescription is for a schedule II opioid drug. Start Date: 11/04/23 Status: Ordered CPAP [employer] Teacher, 06/26/21 17:59:00 EDT, Supply Start Date: 06/26/21 Status: Ordered DuoNeb 3 mg-0.5 mg/3 ml inhalation solution 3 mL, Inhalation, 4 times a day, 0 Refills, Maintenance, 09/29/13 1:05:29 Start Date: 09/29/13 Status: Ordered hydroxyzine hydrochloride 25 mg oral tablet 1 tablet = 25 mg, By Mouth, 2 times a day, 0 Refills, Maintenance, 09/29/13 1:06:19 EST Start Date: 09/29/13 Status: Ordered loratadine 10 [...] opioid drug. Start Date: 04/08/21 Status: Ordered Misc Rx herbalite drink, By Mouth, Daily in [...] opioid drug. Start Date: 04/08/21 Status: Ordered predniSONE 10 mg oral tablet 6 tablet = 60 mg, By Mouth, Daily, 6 tabs qday for 2 days; then 5 for 2 days, then 4 tabs, then 3 tabs, then 2 tabs, then 1 tab for 2 days each, # 42 tablet, 0 Refills, Maintenance, 03/13/24 12:28:00EDT, Tablet, [facility]/pharmacy #[id number], Partial fill upon... Start Date: 03/13/24 Status: Ordered Prilosec 20 mg oral enteric coated capsule 1 capsule = 20 mg, By Mouth, Daily, 0 Refills, Maintenance Start Date: 10/02/11 Status: Ordered Singulair 10 mg oral tablet 1 tablet = 10 mg, By Mouth, Daily at bedtime, 0 Refills, Maintenance, 10/02/11 11:22:54 EST Start Date: 10/02/11 Status: Ordered Spiriva Respimat 1.25 mcg/inh inhalation aerosol 2 puffs = 2.5 mcg, Inhalation, 2 times a day, # 4 Gm, 0 Refills, Maintenance, 11/04/23 10:03:00 EDT, Aerosol, Partial fill upon patient request if the prescription is for a schedule II opioid drug. Start Date: 11/04/23 Status: Ordered Vitamin D3 oral tablet 1 tablet = 400 International_Units, By Mouth, Daily, # 30 tablet, 0 Refills, Maintenance, 05/16/19 9:55:21 EDT, Tablet Start Date: 05/16/19 Status: Ordered Problem List Condition Confirmation Course Effective Dates Status Health St atus Informant Obese class II Confirmed Active Results Radiology Reports * Exam Date Time Procedure Performing Provider Status 03/13/24 11:33 AM Chest 2 Views Frontal and Lat Salome Molina; Auth (Verified) Notes: (Chest 2 Views Frontal and Lat) Reason For Exam: Shortness of Breath RESULT: Chest 2 Views Frontal and Lat Chest 2 Views Frontal and Lat Hx of Present Illness: sob difficulty taking deep breaths. Pt with hx of asthma, using inhalers andnebulizer with little relief. Reports pain in the L ribs and back when coughing; Reason: Shortness of Breath; Clinical Question(s): Pneumonia COMPARISON: 12/28/2023. FINDINGS: LINES AND TUBES: None. LUNGS AND PLEURA: Clear lungs. Normal pulmonary vascularity. No pleural effusion. No pneumothorax. HEART, MEDIASTINUM AND YULIYA: Heart is normal in size. Normal mediastinal and hilar contour. BONES AND SOFT TISSUES: No acute abnormality. Mild to moderate thoracic dextroscoliosis and degenerative changes of the visualized spine. IMPRESSION: No acute cardiopulmonary process. I have personally reviewed the images and I agree with this report. WSN: [id number] Ordering Physician: Rajinder Powell Dictated By: Melany Ambriz MD Dictated Date/Time: 03/13/24 11:46 a Reviewed By: Kd Antonio MD Signed By: Kd Antonio MD Signed Date/Time: 03/13/24 11:51 am Transcribed By: DENYS Transcribed Date/Time: 03/13/24 11:42 am Vital Signs Most recent to oldest [Reference Range]: 1 2 3 Height 155 cm (03/13/24 12:29 PM) 155 cm (03/13/24 11:19 AM) Weight 84.6 kg (03/13/24 11:19 AM) Oxygen Saturation [94-100 %] 97 % (03/13/24 12:29 PM) 98 % (03/13/24 11:19 AM) 98 % (03/13/24 11:17 AM) Pulse Rate [55-90 bpm] 87 bpm (03/13/24 12:29 PM) 72 bpm (03/13/24 11:19 AM) 80 bpm (03/13/24 11:17 AM) Blood Pressure [90-138/55-84 mm Hg] 153/85mm Hg *H* (03/13/24 12:29 PM) 163/98mm Hg *H* (03/13/24 11:19 AM) Respiratory Rate [16-30 br/min] 24 br/min (03/13/24 12:29 PM) 17 br/min (03/13/24 11:19 AM) Temperature [96.8-100.4 DegF] 98.4 DegF (03/13/24 12:29 PM) 97.1 DegF (03/13/24 11:19 AM) Mode of Delivery (Oxygen) Room air (03/13/24 12:29 PM) Room air (03/13/24 11:19 AM) Room air (03/13/24 11:17 AM) Temperature Route Oral (03/13/24 12:29 PM) Temporal (03/13/24 11:19 AM) Dry Weight 84.6 kg (03/13/24 11:19 AM) Weight Obtained Via Standing scale (03/13/24 11:19 AM) Social History Social History Type Response Smoking Status Never (less than 100 in lifetime) entered on: 03/13/24 Sex Implantable Device List Procedure Provider Procedure Date Device Type Site Arthrodesis Foot Triple Phil PINEDA, Carey Jack 07/03/21 Unk nown Ankle Right Device Identifier Serial Number Lot or Batch Number Manufacturing Date Expiration Date Distinct Identification Code MRI Safety Implantable Status Assigning Authority Unknown Unknown Unknown 06/07/22 Unknown Unknown Active Unknown Unknown Unknown Unknown 06/07/22 Unknown Unknown Active Unknown Unknown Unknown [id number] Unknown 11/21/22 Unknown Unknown Active Unk nown Procedure Provider Procedure Date Device Type Site Arthrodesis Foot Matt Anderson MD, David Humphreys 05/20/19 U nknown Ankle Right Device Identifier Serial Number Lot or Batch Number Manufacturing Date Expiration Date Distinct Identification Code MRI Safety Implantable Status Assigning Authority Unknown [id number] Unknown 12/19/20 Unknown Unknown Active Unkno wn Note * Andre PINEDA, Rajinder Humphreys: PERFORM, SIGN, VERIFY Event Display: Patient Education Handout Authored Date: Patient Care team information Care Team Personnel Name: Gt Prescott III, MD Position: Reference Physician Member Role: PCP Address: Address: [address] [place] [address] Name: Prabha Lopez RN Position: S RN Member Role: Primary Care Nurse Name: Megan Dewitt RN Position: S RN Member Role: Primary Care Nurse Name: Roxy Campbell RN Position: [facility] SN RN Member Role: Primary Care Nurse Name: Nirali Rose RN Position: S RN Member Role: Primary Care Nurse Care Team Related Persons Name: ELOISA GILLIAM Address: home [address] [place] [id number] Name: GILLIAM SHANAE Address: home [address] [place] [id number]
[2024-03-15 12:05] LABS: Influenza A PCR NEGATIVE (Negative); Influenza B PCR NEGATIVE (Negative); Resp Syncy Virus RNA Qual PCR NEGATIVE (Negative); SARS COV2 PCR INHOUSE NEGATIVE (Negative)
--- NOTE | 2024-03-15 12:13 | ED_ITS ---
HPI - SOB/Dyspnea General Chief Complaint: Dyspnea Stated Complaint: SOB Time Seen by Provider: 03/15/24 11:44 Source: patient, family (), RN notes reviewed and old records reviewed Mode of arrival: ambulatory Limitations: no limitations History of Present Illness ED Provider: ROD BHAT PA-C HPI Narrative: 53-year-old female with pmhx significant for COPD/asthma overlap, allergic rhinitis, pulmonary embolism not currently on anticoagulation, pulmonary nodules, SPARKLE on CPAP presents to the ED today for evaluation of shortness of breath and cough x3 days. She was seen in an emergency department in [facility] 2 days ago for same and tested negative for COVID. She was prescribed a course of prednisone however continues to report symptoms. She has been using her nebulizer at home with little relief. Admits to using this twice this morning. Additionally endorses left-sided rib pain secondary to cough. She reports cough is productive of yellow-green sputum. Denies known sick contacts. Denies recent travel or long car rides. Denies fever, chills, chest pain, palpitations, hemoptysis, leg pain/swelling, orthopnea. Related Data Home Medications ?Medication ?Instructions ?Recorded ?Confirmed azelastine 137 mcg (0.1 %) nasal 2 spray intranasal BID 12/26/21 05/06/23 spray calcium citrate 200 mg (950 mg) 1 tab PO DAILY 12/26/21 05/06/23 tablet cholecalciferol (vitamin D3) 25 1 tab PO DAILY 12/26/21 05/06/23 mcg (1,000 unit) tablet fluticasone propionate 230 1 puff inhalation BID 12/26/21 05/06/23 mcg-salmeterol 21 mcg/actuation HFA inhaler (Advair HFA) hydroxyzine HCl 25 mg tablet 1 tab PO Q8H PRN itch 12/26/21 05/06/23 ketotifen fumarate 0.025 % (0.035 1 drp ophthalmic (eye) BID PRN itch 12/26/21 05/06/23 %) eye drops loratadine 10 mg tablet 1 tab PO DAILY 12/26/21 05/06/23 montelukast 10 mg tablet 1 tab PO BEDTIME 12/26/21 05/06/23 omeprazole 40 mg capsule,delayed 1 cap PO DAILY@0630 12/26/21 05/06/23 release tiotropium bromide 1.25 2 puff PO DAILY 12/26/21 05/06/23 mcg/actuation mist for inhalation (Spiriva Respimat) ipratropium 20 mcg-albuterol 100 1 puff inhalation QID 01/01/22 05/06/23 mcg/actuation mist for inhalation (Combivent Respimat) folic acid 1 mg tablet 1 mg PO DAILY 07/24/22 05/06/23 tezepelumab-ekko 210 mg/1.91 mL mg subcut 10/15/22 05/06/23 (110 mg/mL) subcutaneous syringe (Tezspire) ibuprofen 800 mg tablet 800 mg PO TID PRN 05/06/23 05/06/23 bupropion HCl 300 mg 24 hr tablet, 300 mg PO DAILY 12/22/23 extended release naltrexone 50 mg tablet 50 mg PO DAILY 12/22/23 Previous Rx's ?Medication ?Instructions ?Recorded guaifenesin 1,200 mg tablet, 1,200 mg PO BID #10 tabs 06/03/23 extended release 12 hr (Mucus Relief ER) ipratropium bromide 0.02 % 2.5 ml inhalation QID PRN for 12/24/23 solution for inhalation wheezing #125 mL azithromycin 250 mg tablet See Rx Instructions PO .COMPLEX #6 12/31/23 tabs prednisone 20 mg tablet 40 mg (2 x 20 mg) PO DAILY 5 days 12/31/23 #10 tabs benzonatate 100 mg capsule 100 mg PO BID PRN cough #14 caps 03/15/24 cefuroxime axetil 250 mg tablet 500 mg (2 x 250 mg) PO BID 10 days 03/15/24 #40 tabs doxycycline hyclate 100 mg tablet 100 mg PO BID 10 days #20 tabs 03/15/24 Allergies Allergy/AdvReac Type Severity Reaction Status Date / Time latex [Latex] Allergy Mild UNKNOWN Verified 03/15/24 10:27 cats, pollen, mold Allergy Unknown Unknown Uncoded 12/22/23 09:55 Latex Allergy Unknown Unknown Uncoded 12/22/23 09:55 Review of Systems 2 Review of Systems: Constitutional: No fever, chills, fatigue, night sweats, weight changes ENT/Mouth: No ear pain, hearing loss, nasal congestion, sinus pain, rhinorrhea, sore throat Eyes: No eye pain, swelling, redness, vision changes, discharge Cardio: No chest pain, palpitations, MCPH[place], orthopnea, peripheral edema Pulm: No wheezing, dyspnea, hemoptysis, +cough, +SOB, +sputum production GI: No nausea, vomiting, hematemesis, abdominal pain, diarrhea, constipation, hematochezia, melena : No irregular bleeding, dysuria, frequency, urgency, hesitancy, hematuria, flank pain, urinary flow changes, urinary incontinence or retention MSK: No back pain, neck pain, joint pain, myalgias Skin: No lesions, rashes Neuro: No weakness, numbness, paresthesias, LOC, dizziness, headache Psych: No anxiety/panic, depression, SI/HI, AH/VH All other systems reviewed and are negative. [facility] Past Medical History Attestation statement: The following information was validated with the patient. Source: old records reviewed and nursing notes reviewed Medical History Bronchitis SPARKLE (obstructive sleep apnea) Allergic rhinitis Asthma Pulmonary embolism Pulmonary cavitary lesion COPD (chronic obstructive pulmonary disease) Pulmonary cavitary lesion Asthma Surgical History H/O gastric sleeve History of partial hysterectomy History of surgery on wrist History of ankle surgery History of knee replacement Family History Family History Father Prostate cancer Social History Social History Household Members: Spouse and Family Housing: House Are you a primary healthcare educator to a significant other at home: Yes (mother) Do you presently have visiting nurse or other home services: Yes Unable to assess alcohol history related to: Unknown Alcohol intake: never Patient Tobacco Use Status: Never used Tobacco Smoked in Last 30 Days: No Use of substances other than those prescribed or required for medical reasons: No Advance Directives: Yes Advance Directives on File: Yes Advance Directives Date on File: 12/26/21 Do you have a plan to hurt others: No Plan service: No Current occupational status: disabled Physical Exam 2 Vital Signs: Vital Signs: Last Vital Signs Temp 98.0 F 03/15/24 10:22 Pulse 70 03/15/24 12:42 Resp 22 H 03/15/24 12:42 BP 150/66 H 03/15/24 10:22 Pulse Ox 99 03/15/24 15:06 O2 Del Method Room Air 03/15/24 10:22 BMI result Body Mass Index 34.9 Patient hypertensive and tachypneic, vitals otherwise WNL Const: General: cooperative, healthy appearing, comfortable and no acute distress Orientation/consciousness: patient oriented x3 Limitations: no limitations HEENT: Head: Yes normal to inspection, Yes No palpable skull fracture present, Yes normocephalic and Yes atraumatic Mouth: Normal oral and palatal mucosa present Throat: Yes posterior oropharynx normal Eyes: General: appearance normal, both eyes and all related structures P upils: Equal, round and reactive pupils present Neck: Neck: Yes normal visual inspection, Yes full ROM, Yes no lymphadenopathy and Yes no JVD Chest: Chest palpation & inspection: normal inspection of the chest and normal palpation of entire chest wall Resp: Other: + mild increased effort of breathing. A ble to speak in complete sentences. Tachypneic. No tripoding. Diffuse expiratory wheezes. Cardio: Other: No JVD or peripheral edema Rate: regular rate Rhythm: regular rhythm Skin: General skin exam: no rashes or lesions noted Neuro: General: patient oriented x3 and gait normal Cranial nerves: Yes Equal, round and reactive pupils present Extrem: General: Yes normal to inspection and Yes no calf tenderness Course Course Course Narrative: 1630-- CBC without leukocytosis. normocytic anemia, h&h stable when compared to priors. chemistry without acute electrolyte abnormality requiring intervention. troponin undetectable. she tested negative for covid/ flu/ rsv. UA without infection. Chest x-ray without infiltrate or consolidation to suggest pneumonia. Age adjusted D-dimer elevated above threshold. Chest CTA does not reveal acute VTE however does show stable 4 mm lung nodule to right lung. > on re-evaluation, patient reports significant improvement in breathing after receiving IV Solu-Medrol and magnesium. Her lungs are now clear to auscultation bilaterally. Ambulatory O2 saturation 99% on room air. Patient currently on her 2nd day of prednisone course. Advised to continue this. Will send Eldonin and doxbabak to pharmacy for suspected COPD exacerbation. 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 Patient has remained stable throughout ED visit today. Discussed worrisome signs and symptoms and when to return to the ED. All questions answered at this time. Patient is agreeable with disposition and stable for discharge. Medications Administered Discontinued Medications Generic Name Dose Route Start Last Admin Trade Name Sony PRN Reason Stop Dose Admin Albuterol Sulfate 5 mg/ 0 mg 03/15/24 12:37 03/15/24 12:42 Albuterol/Ipratropium 3 ml INHALE 03/15/24 12:38 7.5 each ONCE ONE Administration Magnesium Sulfate 2 gm in 50 mls @ 150 mls/hr 03/15/24 15:01 03/15/24 15:33 Magnesium Sulfate/H2o IV 03/15/24 15:20 Infused ONCE ONE Infusion Iohexol 100 ml 03/15/24 13:49 03/15/24 13:49 Iohexol 350 Mg/Ml 100 Ml Infus..Btl IV 03/15/24 13:50 65 ml ONCE ONE Administration Methylprednisolone Sodium Succinate 125 mg 03/15/24 12:23 03/15/24 12:47 Methylprednisolone Sod Succ 125 Mg/2 Ml Vial IVPUSH 03/15/24 12:24 125 mg ONCE ONE Administration Medical Decision Making Medical Decision Making [facility] Narrative: 53-year-old female with pmhx significant for COPD/asthma overlap, allegic rhinitis, pulmonary embolism not currently on anticoagulation, pulmonary nodules, SPARKLE on CPAP presents to the ED today for evaluation of shortness of breath x3 days. Patient hypertensive and tachypneic. Afebrile. She is nontoxic-appearing and in no acute distress. mild increased effort of breathing. Able to speak in complete sentences. Tachypneic. No tripoding. Diffuse expiratory wheezes. No JVD or peripheral edema. No calf tenderness bilaterally. Differential diagnosis includes asthma exacerbation, COPD exacerbation, bronchitis, pneumonia, pulmonary embolism. Unlikely ACS, arrhythmia, CHF. Plan for labs, VBG, dimer, chest x-ray, ED bronch protocol, re-evaluation. Differential Diagnosis Differential Diagnoses: The differential diagnosis associated with the presentation includes as above Admission/Observation Consideration of admission/observation: Escalation of care including admission/observation considered Admission considered on presentation Lab Data [facility] Lab Attestation statement: I reviewed the patient's lab results. as above 03/15/24 12:40 03/15/24 12:40 Labs: Lab Results 03/15/24 03/15/24 03/15/24 Range/Units 11:18 12:40 12:42 WBC 10.5 (4.8-10.8) X10*3/uL RBC 4.26 (4.20-5.50) X10*6/uL Hgb 10.5 L (12.0-16.0) g/dl Hct 34.3 L (37.0-47.0) % MCV 80.5 (80.0-98.0) fL MCH 24.6 L (27.0-33.0) pg MCHC 30.6 L (31.0-35.0) g/dl RDW 16.5 H (11.0-16.0) % Plt Count 326 (160-400) X10*3/uL MPV 10.0 (9.4-12.3) fL Immature Gran % (Auto) 0.6 H (0.0-0.4) % Neut % (Auto) 91.5 H (45-73) % Lymph % (Auto) 6.1 L (20-40) % [place] % (Auto) 1.5 L (2-11) % Eos % (Auto) 0.0 (0-4) % Baso % (Auto) 0.3 (0-2) % Lymph # (Auto) 0.6 L (1.2-4.9) X10*3/uL [place] # (Auto) 0.2 (0.1-1.2) X10*3/uL Eos # (Auto) 0.0 (0.0-0.4) X10*3/uL Baso # (Auto) 0.0 (0.0-0.2) X10*3/uL Abs Immat Gran (auto) 0.06 H (0.00-0.03) X10*3/uL Absolute Neuts (auto) 9.6 H (2.0-8.3) x10*3/uL Absolute Nucleated RBC 0.000 (0.0-0.012) X10*3/uL Nucleated RBC % (auto) 0.0 (0.0-0.2) /100WBC Smear Tech's Comments VERIFIED PT 10.4 L (11.1-13.3) SEC INR 0.9 (0.9-1.1) D-Dimer High Sensitivty 475 NG/ML VBG pH 7.46 H (7.32-7.43) VBG pCO2 34 mmHg VBG pO2 58 mmHg VBG HCO3 25 (22-26) mmol/L VBG O2 Saturation 91.0 % VBG Base Excess 1.9 mmol/L Sodium 139 (135-145) mmol/L Potassium 4.5 (3.3-5.1) mmol/L Chloride 106 (96-108) mmol/L Carbon Dioxide 25 (22-29) mmol/L Anion Gap 13 (12-20) BUN 28 H (9-16) mg/dL Creatinine 0.86 (0.5-1.4) mg/dL Estim Creat Clear Calc 72.6 Estimated GFR > 60 Random Glucose 105 (60-115) mg/dL Calcium 9.0 D (8.4-10.2) mg/dL Magnesium 2.1 (1.6-2.6) mg/dL Total Bilirubin 0.3 (0.0-1.0) mg/dL AST 15 (5-31) U/L ALT 13 (0-31) U/L Alkaline Phosphatase 86 (39-117) U/L Troponin I High Sens < 2.7 (<3.5-17.0) ng/L Total Protein 6.7 (6.5-8.0) g/dL Albumin 3.8 (3.5-5.0) g/dL Urine Color Yellow Urine Appearance Clear Urine pH 7.5 (5.0-9.0) Ur Specific [place] 1.015 (1.005-1.025) Urine Protein Negative (Neg-Trace) mg/dL Urine Glucose (UA) Negative (Negative) mg/dL Urine Ketones Negative (Negative) mg/dL Urine Blood Negative (Negative) Urine Nitrite Negative (Negative) Ur Leukocyte Esterase Trace H (Negative) Urine RBC 0-2 (0-2) /HPF Urine WBC 0-5 (0-5) /HPF Ur Squamous Epith Cells 0-2 (0-2) /HPF Urine Bacteria None Seen (None Seen) Hyaline Casts 0-2 (0-2) /LPF Influenza Type A (PCR) NEGATIVE (Negative) Influenza Type B (PCR) NEGATIVE (Negative) RSV RNA Qual (PCR) NEGATIVE (Negative) SARS-CoV-2 RNA (RT-PCR) NEGATIVE (Negative) Independent Interpretation I performed an independent interpretation of an: EKG, Plain X-Ray and CT Scan Interpretation: EKG showing normal sinus rhythm at a rate of 82 beats per minute, QT 378, QTC 441, no acute ischemic changes or ST elevations. chest xr without infiltrate or consolidation, agree with radiologist's interpretation. CTA chest without VTE, agree with radiologist's interpretation. Radiology Impression Discussion of test interpretation with radiology: I have reviewed the radiologist's reading. Radiologist Impression: EXAMINATION: CT ANGIOGRAM OF THE CHEST WITH AND WITHOUT CONTRAST (CT PULMONARY ANGIOGRAM FOR PE) CLINICAL INFORMATION: Reason for Exam elevated dimer, SOB, r/o PE COMPARISON: CT angiogram chest from 11/2023 TECHNIQUE: Prior to contrast administration, noncontrast localization images were obtained. Subsequently, multidetector volumetric imaging was performed from the thoracic inlet to below the diaphragms following the administration of 80 mL Omnipaque 350 intravenous contrast. No contrast reaction reported Sagittal, coronal, and MIP oblique sagittal reformatted images were obtained on the CT workstation, uploaded to PACS, and reviewed. This CT examination was performed using dose optimization techniques as appropriate, variously including the following: *Automated exposure control *Adjustment of mA and/or kV according to patient size (this includes techniques or standardized protocols for targeted exams where dose is matched to indication/reason for exam; i.e. extremities or head) *Use of iterative reconstruction technique Total exam dose-length product 309 mGy-cm FINDINGS: QUALITY OF STUDY/CONTRAST BOLUS: Satisfactory. PULMONARY ARTERIES: No pulmonary emboli. Main pulmonary artery is not enlarged. THORACIC AORTA: No aneurysm. LUNG/PLEURA: Respiratory motion artifact limits evaluation. Stable 3 mm nodular focus in the midportion of the right upper lobe abutting the right minor fissure (series 7, image 193). No new enlarged or suspicious pulmonary nodules or masses are noted. Central airways are patent. No pneumothorax. No large pleural effusion. Bibasilar atelectasis. MEDIASTINUM: Is not enlarged. No pericardial effusion. Coronary artery calcifications are noted. A few calcified mediastinal lymph nodes are noted potentially reflecting sequela of prior granulomatous disease. No evidence of septal bowing or right heart strain. CHEST WALL/AXILLA: No axillary or internal mammary lymphadenopathy. OSSEOUS STRUCTURES: No acute or suspicious osseous abnormality. UPPER ABDOMEN: Postsurgical changes of the stomach. Prominent fatty atrophy of the pancreas. Hepatic steatosis. Small hiatal hernia. No reflux of contrast into the hepatic veins to suggest elevated right heart pressures. CT/CT angio chest PE protocol IMPRESSION: 1. No pulmonary emboli. 2. Stable 3 mm nodular focus in the midportion of the right upper lobe abutting the right minor fissure. No new enlarged or suspicious pulmonary nodules or masses are noted. 3. Postsurgical changes of the stomach. Small hiatal hernia. 4. Prominent fatty atrophy of the pancreas. 5. Hepatic steatosis. EXAMINATION: XR RIBS, LEFT CLINICAL INFORMATION: Cough. Pain COMPARISON: None available. TECHNIQUE: 3 views of the left ribs were obtained. FINDINGS: Lungs are clear. No consolidation, pneumothorax, or pleural effusion. The cardiomediastinal silhouette and pulmonary vasculature are normal. There is advanced degenerative change in the left shoulder joint.. Ribs are intact. No fractures are identified. XR/XR ribs LT min 3V w CXR1V IMPRESSION: Advanced degenerative change left shoulder joint. Ribs intact. Independent Historian Clinical information obtained from an independent historian. History obtained from or confirmed by: Spouse () Prescription Management I considered prescription management with: Antibiotic (cefuroxime, doxy) and Other (Tessalon Perles) Chronic Conditions Patient?s care impacted by: Other (COPD, asthma, SPARKLE) Social Determinants Patient?s care significantly limited by Social Determinants of Health including: Other Social Determinant of Health Critical Care Time Critical Care Time Critical Care Time: Yes Total Critical Care Time: 36 Attestation: Critical care time in the amount of 36 minutes has been provided to the patient in terms of direct patient care, frequent reevaluation with IV magnesium and IV solumedrol, review and interpretation of medical data and results, and management of potentially life-threatening conditions. This is all outside of any medical procedures. Discharge Plan Discharge Clinical Impression: Acute exacerbation of chronic obstructive pulmonary disease Patient Disposition: Home, Self-Care Instructions: COPD (Chronic Obstructive Pulmonary Disease) (ED), How to Use a Nebulizer (ED) Additional Instructions: Your blood work today is reassuring. You tested negative for covid, flu, and rsv. Your urine is negative for infection. Your chest x-ray is normal. The CT scan of your chest does not show evidence of clot however does show a 3 mm nodule within the right upper lobe of the lung, stable when compared to previous imaging. Ceftin and doxycycline or antibiotics that have been sent to your pharmacy for you to take as prescribed for the next 10 days. Take both antibiotics to completion. Continue your current prescription of prednisone. Tessalon Perles have been sent to your pharmacy for you to take as needed for cough. 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 Return with new or worsening symptoms. If you are using your inhaler or nebulizer at home more frequently without relief, please return to the ED for further evaluation. In the case of an emergency call 911. Prescriptions: New cefuroxime axetil 250 mg tablet 500 mg PO BID 10 Days Qty: 40 0RF doxycycline hyclate 100 mg tablet 100 mg PO BID 10 Days Qty: 20 0RF benzonatate 100 mg capsule 100 mg PO BID PRN (Reason: cough) Qty: 14 0RF No Action ipratropium bromide 0.02 % solution 2.5 ml inhalation QID PRN (Reason: for wheezing) Qty: 125 3RF Combivent Respimat 20-100 mcg/actuation mist 1 puff inhalation QID ketotifen fumarate 0.025 % (0.035 %) drops 1 drp ophthalmic (eye) BID PRN (Reason: itch) omeprazole 40 mg capsule,delayed release(DR/EC) 1 cap PO DAILY@0630 montelukast 10 mg tablet 1 tab PO BEDTIME hydroxyzine HCl 25 mg tablet 1 tab PO Q8H PRN (Reason: itch) azelastine 137 mcg (0.1 %) aerosol,spray 2 spray intranasal BID loratadine 10 mg tablet 1 tab PO DAILY calcium citrate 200 mg (950 mg) tablet 1 tab PO DAILY Advair HFA 230-21 mcg/actuation HFA aerosol inhaler 1 puff inhalation BID cholecalciferol (vitamin D3) 25 mcg (1,000 unit) tablet 1 tab PO DAILY Spiriva Respimat 1.25 mcg/actuation mist 2 puff PO DAILY guaifenesin [Mucus Relief ER] 1,200 mg tablet extended release 12hr 1,200 mg PO BID Qty: 10 0RF azithromycin 250 mg tablet See Rx Instructions .ROUTE .COMPLEX Qty: 6 0RF Rx Instructions: For 250 mg dose pack: take 500 mg today (day 1), then 250 mg for 4 days (days 2-5) prednisone 20 mg tablet 40 mg PO DAILY 5 Days Qty: 10 0RF Tezspire 210 mg/1.91 mL (110 mg/mL) syringe subcut folic acid 1 mg tablet 1 mg PO DAILY ibuprofen 800 mg tablet 800 mg PO TID PRN bupropion HCl 300 mg tablet extended release 24 hr 300 mg PO DAILY naltrexone 50 mg tablet 50 mg PO DAILY Referrals: [facility] [Provider Group] Gt Prescott III, MD [Primary Care Provider] - Print Language: [place] Islander
--- NOTE | 2024-03-15 12:23 | ECG_ITS ---
Test Reason : SOB Blood Pressure : / mmHG Vent. Rate : 082 BPM Atrial Rate : 082 BPM P-R Int : 144 ms QRS Dur : 088 ms QT Int : 378 ms P-R-T Axes : 015 005 005 degrees QTc Int : 441 ms Normal sinus rhythm Normal ECG When compared with ECG of 30-DEC-2023 21:51, No significant change was found Referred By: Dayan Marcos Electronically Signed By:CRYSTAL SOLANO
[2024-03-15 12:29] VITALS: PULSE 78; RESP 22; O2SAT 99
[2024-03-15 12:42] VITALS: PULSE 70; RESP 22; O2SAT 94
[2024-03-15] MEDS: Albuterol Sulfate 5 MG, Albuterol/Iprat 2.5/0.5MG 3 ML 3 ML INHALE (12:42)
[2024-03-15] MEDS: methylPREDNISolone Sod Succ 125 MG/2 ML VIAL IVPUSH (12:47)
[2024-03-15 12:48] LABS: Venous Blood Gas Refer to POC result
[2024-03-15 12:49] LABS: VBG Base Excess 1.9 mmol/L; VBG HCO3 25 mmol/L (22-26); VBG pCO2 34 mmHg; VBG pH 7.46 (7.32-7.43); VBG pO2 58 mmHg
[2024-03-15 12:51] LABS: Basophils Percent Auto 0.3 % (0-2); Hematocrit 34.3 % (37.0-47.0); Hemoglobin 10.5 g/dl (12.0-16.0); Imm Gran Abs Auto 0.06 X10*3/uL (0.00-0.03); Imm Gran Pct Auto 0.6 % (0.0-0.4); Lymphocytes Absolute Auto 0.6 X10*3/uL (1.2-4.9); Lymphocytes Percent Auto 6.1 % (20-40); MANUAL DIFF FLAG SCAN; Mean Corpuscular HGB Conc 30.6 g/dl (31.0-35.0); Mean Corpuscular Hemoglobin 24.6 pg (27.0-33.0); Mean Corpuscular Volume 80.5 fL (80.0-98.0); Monocytes Absolute Auto 0.2 X10*3/uL (0.1-1.2); Monocytes Percent Auto 1.5 % (2-11); Neutrophils Absolute Auto 9.6 x10*3/uL (2.0-8.3); Neutrophils Percent Auto 91.5 % (45-73); Platelet Count 326 X10*3/uL (160-400); Red Blood Count 4.26 X10*6/uL (4.20-5.50); Red Cell Distribution Width 16.5 % (11.0-16.0); SCAN SMEAR FLAG 1; White Blood Count 10.5 X10*3/uL (4.8-10.8)
[2024-03-15 12:53] LABS: Appearance Urine Clear; Color Urine Yellow; Glucose Urine UA Negative (Negative); Leukocyte Esterase Urine Trace (Negative); Nitrite Urine Negative (Negative); PH 7.5 (5.0-9.0); Specific Gravity - Urine 1.015 (1.005-1.025); UMIC TRIGGER UACC YES; Urine Blood Negative (Negative); Urine Ketones Negative (Negative); Urine Protein Negative (Neg-Trace)
[2024-03-15 12:55] LABS: Bacteria Urine None Seen (None Seen); Hyaline Casts Urine 0-2 /LPF (0-2); RBC Urine 0-2 /HPF (0-2); Squamous Epithelial Cell Urine 0-2 /HPF (0-2); WBC Urine 0-5 /HPF (0-5)
[2024-03-15 13:01] LABS: Alanine Aminotransferase 13 U/L (0-31); Albumin Level 3.8 g/dL (3.5-5.0); Alkaline Phosphatase 86 U/L (39-117); Anion Gap 13 (12-20); Aspartate Amino Transferase 15 U/L (5-31); Bilirubin Total 0.3 mg/dL (0.0-1.0); Blood Urea Nitrogen 28 mg/dL (9-16); Carbon Dioxide 25 mmol/L (22-29); Chloride 106 mmol/L (96-108); Creatinine Clr Calc Pharmacy 72.6; Estimated Glomerular Filt Rate > 60; Glucose Random 105 mg/dL (60-115); INTERNATIONAL NORM RATIO 0.9 (0.9-1.1); Magnesium 2.1 mg/dL (1.6-2.6); Potassium 4.5 mmol/L (3.3-5.1); Prothrombin Time 10.4 SEC (11.1-13.3); Sodium 139 mmol/L (135-145); Total Protein 6.7 g/dL (6.5-8.0)
[2024-03-15 13:03] LABS: D Dimer High Sensitivity 475 NG/ML
[2024-03-15 13:10] LABS: Troponin-I High Sensitivity < 2.7 ng/L (<3.5-17.0)
[2024-03-15 13:23] LABS: SLIDE REVIEW VERIFIED
[2024-03-15] MEDS: iohexoL 350 MG/ML 100 ML INFUS..BTL IV (13:49)
[2024-03-15 15:06] VITALS: O2SAT 99
[2024-03-15] MEDS: Magnesium Sulfate/H2O 2 GM/50 ML PIGGYBACK IV (15:10)
[2024-03-15 16:52] VITALS: BP 134/69; PULSE 77; RESP 18; TEMP 36.6; O2SAT 99
[2024-03-15 16:53] VITALS: BP 134/69; PULSE 77; RESP 18; TEMP 36.6; O2SAT 99
== END 2024-03-15 16:54 | disposition home or self-care (01) ==
PROVIDERS: Physician Assistant Medical; Emergency Provider Emergency Medicine Emergency Medical Services; PCP Internal Medicine
DX: J44.1 Chronic obstructive pulmonary disease with (acute) exacerbation (principal); Z03.818 Encounter for observation for suspected exposure to other biological agents ruled out; R06.02 Shortness of breath; R79.1 Abnormal coagulation profile; R06.82 Tachypnea, not elsewhere classified; R05.9 Cough, unspecified; G47.33 Obstructive sleep apnea (adult) (pediatric); Z99.89 Dependence on other enabling machines and devices; I10 Essential (primary) hypertension
CPT/HCPCS: 0241U; 36415; 71101; 71275; 80053; 81001; 82803; 83735; 84484; 85025; 85379; 85610; 93005; 94640; 96365; 96375; 99284; 99285; J2919; J3475; Q9967

== ENCOUNTER → 2024-03-15 12:23 | Outpatient (BNV) | payer OTHER, SELFPAY | PROVIDERS: Emergency Provider Emergency Medicine Emergency Medical Services; PCP Internal Medicine; Visit Provider Internal Medicine | DX: R06.02 Shortness of breath (principal) | CPT/HCPCS: 93010 ==

== ENCOUNTER 2024-03-24 08:25 | Outpatient (REF) | payer OTHER, SELFPAY ==
--- NOTE | ~2024-03-24 | MM_ITS ---
EXAMINATION: MM SCREENING DIGITAL BREAST TOMOSYNTHESIS, BILATERAL CLINICAL INFORMATION: Screening. Asymptomatic. COMPARISON: Mammography: This study is compared with prior exams dating back to 2018. TECHNIQUE: Digital breast tomosynthesis is performed in both the craniocaudal and mediolateral oblique views along with computer-aided detection (CAD). Synthesized 2D images are generated from the tomosynthesis. FINDINGS: There are scattered areas of fibroglandular density (ACR BI-RADS breast composition Category b). There are no significant masses, abnormal calcifications, or other abnormalities. There is a biopsy tissue marker in right breast. MM/MM tomosynthesis screening BI IMPRESSION: No mammographic evidence of malignancy. ASSESSMENT: BI-RADS BI-RADS 2 - Benign Findings RECOMMENDATION: Routine annual mammography screening. 1 year F/U This examination should not preclude the clinical evaluation of a suspicious palpable abnormality. This patient's information was entered into a reminder system with a target due date for their next mammogram. Electronically signed by: Marlyn Mckeon MD 04/18/2024 02:14 AM EDT
== END 2024-03-24 08:26 | disposition home or self-care (01) ==
LOC: HO.MAMMO 08:25
PROVIDERS: PCP Internal Medicine; Visit Provider Internal Medicine
DX: Z12.31 Encounter for screening mammogram for malignant neoplasm of breast (principal); J44.9 Chronic obstructive pulmonary disease, unspecified; G47.33 Obstructive sleep apnea (adult) (pediatric); R91.8 Other nonspecific abnormal finding of lung field
CPT/HCPCS: 77063; 77067; 99212

== ENCOUNTER → 2024-03-24 08:30 | Outpatient (BNV) | payer OTHER, SELFPAY | PROVIDERS: PCP Internal Medicine; Visit Provider Radiology Diagnostic Radiology | DX: Z12.31 Encounter for screening mammogram for malignant neoplasm of breast (principal) | CPT/HCPCS: 77063; 77067 ==

== ENCOUNTER 2024-03-24 14:06 | Outpatient (AMB) | payer OTHER, SELFPAY ==
--- NOTE | 2024-03-24 14:11 | MHC.OFFVIS ---
Vital Signs 03/24/24 14:12 Height 5 ft 1 in Weight 186 lb 4.65 oz BMI 35.2 BP 120/72 Blood Pressure Location Lt brachial Position Sitting Pulse 76 Pulse Source Pulse Oximeter Pulse Oximetry (%) 99 Oxygen Delivery Method Room Air Intake Visit Reasons: Shortness of breath Intake Note: pt is here for follow up and states she has had 2 ER visits Thursday and Thursday due to breathing, she is on prednisone and antibiotic but is still struggling today. Prednisone is at 20mg from a taper. Pst Supervisor Required: No Allergies latex [Latex] Allergy (Mild, Verified 03/24/24 14:30) UNKNOWN cats, pollen, mold Allergy (Unknown, Uncoded 03/24/24 14:30) Unknown Latex Allergy (Unknown, Uncoded 03/24/24 14:30) Unknown Medication List - Last Reconciled 03/24/24 by Khadar Parker MD azelastine 2 sprays intranasal BID benzonatate 100 mg PO BID PRN bupropion HCl XL 300 mg PO DAILY calcium citrate 1 tab PO DAILY cefuroxime axetil 500 mg (2 x 250 mg) PO BID 10 days cholecalciferol (vitamin D3) 1 tab PO DAILY doxycycline hyclate 100 mg PO BID 10 days fluticasone propion-salmeterol 230-21 mcg/actuation (Advair HFA) 1 puff inhalation BID folic acid 1 mg PO DAILY guaifenesin ER (Mucus Relief ER) 1,200 mg PO BID hydroxyzine HCl 1 tab PO Q8H PRN ibuprofen 800 mg PO TID PRN ipratropium bromide 2.5 mL inhalation QID PRN ipratropium-albuterol 20-100 mcg/actuation (Combivent Respimat) 1 puff inhalation QID 30 days ketotifen fumarate 0.025%(0.035%) 1 drp ophthalmic (eye) BID PRN loratadine 1 tab PO DAILY montelukast 1 tab PO BEDTIME naltrexone 50 mg PO DAILY omeprazole 1 cap PO DAILY@0630 prednisone 40 mg (2 x 20 mg) PO DAILY 5 days tezepelumab-ekko (Tezspire) mg subcut tiotropium bromide 1.25 mcg/actuation (Spiriva Respimat) 2 puffs PO DAILY Do you need a note to return to daycare/school/sports/work: No HPI HPI Shortness of breath: Details: THIS 53 YEARS OLD FEMALE, WITH CHRONIC ANXIETY AND DEPRESSION, WELL CHRONIC OBSTRUCTIVE PULMONARY DISEASE, PAST HISTORY OF PULMONARY EMBOLISM. IS HERE FOR FOLLOW-UP, HOWEVER DURING THE PAST 2 WEEKS ,SHE WAS SEEN IN THE EMERGENCY ROOM FOR ACUTE EXACERBATION. SHE HAD CTA OF THE CHEST, NEGATIVE FOR PULMONARY EMBOLISM OR PNEUMONIA. BUT BECAUSE OF HER RECURRENT BOUTS OF BRONCHITIS, SHE WAS STARTED ON PREDNISONE TAPER , WELL COMBINATION OF DOXYCYCLINE AND CEFUROXIME WHICH SHE IS STILL ON. CURRENTLY SHE JUST FEELS WEAK AND TIRED, HAS VERY LITTLE COUGH OR EXPECTORATION AND ALSO HAS VERY LITTLE WHEEZING. SHE WALKED INTO THE OFFICE WITHOUT ANY DISTRESS. COUNT INCLUDES THE [facility] Medical History Bronchitis SPARKLE (obstructive sleep apnea) Allergic rhinitis Asthma Pulmonary embolism Pulmonary cavitary lesion COPD (chronic obstructive pulmonary disease) Pulmonary cavitary lesion Asthma Surgical History H/O gastric sleeve History of partial hysterectomy History of surgery on wrist History of ankle surgery History of knee replacement Family History Father Prostate cancer Social History Household Members: Spouse and Family Caregiver staying overnight: No Housing: House Are you a primary before and after school daycare worker to a significant other at home: Yes (mother) Do you presently have visiting nurse or other home services: Yes Unable to assess alcohol history related to: Unknown Alcohol intake: never Patient Tobacco Use Status: Never used Tobacco Advance Directives Date on File: 12/26/21 service: No Current occupational status: disabled Female Reproductive History Menstrual Age of Menarche: 7 Review of Systems Const All systems reviewed & are unremarkable except as noted in HPI and below Eyes Reports no additional complaints ENT Reports no additional complaints Card Denies chest pain, Denies irregular heart rhythm and Denies leg edema Resp Reports as per HPI GI Reports no additional complaints Reports no additional complaints Musc Reports no additional complaints Skin/Breast Reports system reviewed and no additional complaints, except as documented Neuro Reports no additional complaints Psych Reports anxiety and Reports depression Endo Reports no additional complaints Physical Exam Vital Signs: Last Vital Signs Pulse 76 03/24/24 14:12 BP 120/72 03/24/24 14:12 Pulse Ox 99 03/24/24 14:12 Oxygen Delivery Method Room Air 03/24/24 14:12 BMI result Body Mass Index 35.2 Const General: comfortable (But short of breath on minimal walking and during conversation.), no acute distress, alert and awake Orientation/consciousness: patient oriented x3 HEENT Head: Yes normal to inspection General nose exam: No nasal polyps present and No nasal discharge present Face and sinus: Yes sinuses nontender Mouth: oropharynx normal Throat: Yes posterior oropharynx normal Eyes General: appearance normal, both eyes and all related structures Neck Neck: Yes normal visual inspection, Yes no lymphadenopathy, Yes trachea midline and Yes no JVD Thyroid: Thyroid normal Chest Chest palpation & inspection: normal inspection of the chest, normal palpation of entire chest wall and no tenderness Resp Other: Percussion note resonant, breath sounds are distant but equal on both sides. No audible wheezes . NO CREPITATIONS ARE HEARD. Cardio Palpation: normal PMI Rate: regular rate Rhythm: regular rhythm Heart sounds: no gallops and no murmurs Peripheral pulses: Peripheral pulses 2+ throughout GI Palpation (GI): Soft to palpation, nontender, No hepatosplenomegaly present and no masses Auscultation: normal bowel sounds Back/Spine/Pelvis Thoracic/Lumbar Spine: thoracic and lumbar spine normal to inspection Skin General skin exam: no rashes or lesions noted Neuro General: patient oriented x3 and no focal motor deficits Cranial nerves: Yes CN's II-XII intact bilaterally Extrem General: Yes normal to inspection, Yes no clubbing, cyanosis or edema and Yes no calf tenderness Psych Speech and movement: Normal speech and movement present Results Reviewed Results Reviewed: CTA/ CHEST ON 03/15/24 IMPRESSION: 1. No pulmonary emboli. 2. Stable 3 mm nodular focus in the midportion of the right upper lobe abutting the right minor fissure. No new enlarged or suspicious pulmonary nodules or masses are noted. 3. Postsurgical changes of the stomach. Small hiatal hernia. 4. Prominent fatty atrophy of the pancreas. 5. Hepatic steatosis. Assessment & Plan Assessment & Plan (1) COPD (chronic obstructive pulmonary disease): Comment: This patient has been treated for long time as a case of advanced chronic obstructive pulmonary disease/ severe asthma. It seems to be well controlled at this time. As noted above in the history she has been seen in the emergency room twice with acute bronchitis. She had no pneumonia or evidence of any pulmonary embolism. She is just completing the course of the prednisone and also combination of doxycycline plus cefuroxime. Lungs are very clear at this time. But she remains weak and tired. Code(s): J44.9 - Chronic obstructive pulmonary disease, unspecified Category: Medical Plan: Continue present medications which include Advair HFA 230-21 2 puffs b.i.d. Spiriva Respimat 1.252 inhalations daily Combivent Respimat 20-100 1 inhalation Q 4-6 hours p.r.n. as rescue inhaler May split prednisone l 10 mg tablet into half and take 5 mg daily for the next week Complete the course of antibiotic. (2) Bronchitis: Comment: PATIENT IS COMPLETING OF DOXYCYCLINE AND CEFUROXIME 500 MG B.I.D. FOR 10 DAYS. AT PRESENT DOES NOT HAVE ANY ACTIVE SYMPTOMS OF ACUTE BRONCHITIS. Code(s): J40 - Bronchitis, not specified as acute or chronic Category: Medical Plan: ABOVE (3) SPARKLE (obstructive sleep apnea): Comment: Patient gives history of diagnosis of SPARKLE, since many years ago. Initial sleep study at [facility] and then following 2 studies at [facility]. After losing significant weight she had stopped using the CPAP, as she did not have any symptoms of SPARKLE. Currently she has gained about. 20 lb of weight but still denies symptoms of SPARKLE. She is being followed at to weight management program of [facility]. Code(s): G47.33 - Obstructive sleep apnea (adult) (pediatric) Category: Medical Plan: ABOVE (4) Pulmonary nodules: Comment: Previous CT scan of the chest in December 2021 showed multiple pulmonary nodules the largest being [address] SCAN ON 12/10/2022 SHOWED: AND A RECENT CTA SCAN ON 03/15/24 DIFFUSE BRONCHIAL THICKENING CONSISTENT WITH CHRONIC BRONCHITIS. VEXING AND WANING PULMONARY NODULES CONSISTENT WITH, INFLAMMATORY ETIOLOGY. NO CAVITARY LESION WAS NOTED. REVIEWED THE FINDINGS OF CTA SCAN FINDINGS WITH THE PATIENT ONCE AGAIN, AND REASSURED. Code(s): R91.8 - Other nonspecific abnormal finding of lung field Category: Medical Plan: ABOVE Coding Level of Care Code Est Pt Level 4 (78766) Diagnoses COPD (chronic obstructive pulmonary disease) J44.9 Bronchitis J40 SPARKLE (obstructive sleep apnea) G47.33 Pulmonary nodules R91.8
[2024-03-24 14:12] VITALS: BP 120/72; PULSE 76; O2SAT 99; BMI 35.2
== END 2024-03-24 14:30 | disposition home or self-care (01) ==
PROVIDERS: PCP Internal Medicine; Visit Provider Internal Medicine
DX: J44.9 Chronic obstructive pulmonary disease, unspecified (principal); J40 Bronchitis, not specified as acute or chronic; G47.33 Obstructive sleep apnea (adult) (pediatric); R91.8 Other nonspecific abnormal finding of lung field
CPT/HCPCS: 99214

== ENCOUNTER 2024-04-12 10:40 | Emergency (ER) | payer OTHER, SELFPAY ==
--- NOTE | ~2024-04-12 | XR_ITS ---
EXAMINATION: XR CHEST CLINICAL INFORMATION: Cough, shortness of breath COMPARISON: Rib radiographs 03/15/2024 TECHNIQUE: 2 views of the chest were obtained. FINDINGS: Clear lungs. No pleural effusion or pneumothorax. Cardiomediastinal silhouette is unchanged. Mild reverse S-shaped curvature of the thoracic spine. Redemonstrated left glenohumeral arthrosis. XR/XR chest 2V IMPRESSION: No acute cardiopulmonary abnormality. Electronically signed by: London Arreaga MD 04/12/2024 12:26 PM EDT
--- NOTE | ~2024-04-12 | CT_ITS ---
EXAMINATION: CT ANGIOGRAM OF THE CHEST WITH AND WITHOUT CONTRAST (CT PULMONARY ANGIOGRAM FOR PE) CLINICAL INFORMATION: SOB, elevated D-dimer. COMPARISON: CTA chest 03/15/2024 TECHNIQUE: Prior to contrast administration, noncontrast localization images were obtained. Subsequently, multidetector volumetric imaging was performed from the thoracic inlet to below the diaphragms following the administration of 65 mL Omnipaque 350 intravenous contrast. No contrast reaction reported Sagittal, coronal, and MIP oblique sagittal reformatted images were obtained on the CT workstation, uploaded to PACS, and reviewed. This CT examination was performed using dose optimization techniques as appropriate, variously including the following: *Automated exposure control *Adjustment of mA and/or kV according to patient size (this includes techniques or standardized protocols for targeted exams where dose is matched to indication/reason for exam; i.e. extremities or head) *Use of iterative reconstruction technique Total exam dose-length product 292 mGy-cm FINDINGS: QUALITY OF STUDY/CONTRAST BOLUS: Satisfactory. PULMONARY ARTERIES: No pulmonary emboli through the segmental pulmonary arteries. Evaluation of the subsegmental pulmonary arteries limited by respiratory motion, particularly at the lung bases. THORACIC AORTA: Mild aortic arch calcific atherosclerosis. No aneurysm. LUNG: Central airways patent. Mild diffuse bronchial wall thickening. New diffuse bilateral pulmonary groundglass opacity throughout. More discrete clustered peribronchovascular nodularity at the bilateral upper lobes. No confluent consolidation. Again unchanged 3 mm perifissural micronodule at the right upper lobe along the minor fissure (series 6, image 159 ) for which no dedicated follow-up imaging is required. No new, suspicious pulmonary nodule identified. PLEURA: No pleural effusion or pneumothorax. MEDIASTINUM: Normal heart size. No pericardial effusion. Prominent but nonenlarged bilateral hilar lymph nodes, increased from 03/15/2024. No mediastinal lymphadenopathy. No evidence of septal bowing or right heart strain. CORONARY ARTERY CALCIFICATION: Mild multivessel coronary artery calcifications present. CHEST WALL/AXILLA: No axillary or internal mammary lymphadenopathy. OSSEOUS STRUCTURES: Moderate multilevel degenerative thoracic spondylosis again seen. No acute or suspicious osseous abnormality. UPPER ABDOMEN: Redemonstrated diffuse pancreatic fatty atrophy. Partially visualized postoperative appearance from the gastrectomy. No reflux of contrast into the hepatic veins to suggest elevated right heart pressures. CT/CT angio chest PE protocol IMPRESSION: 1. No pulmonary emboli through the segmental pulmonary arteries. Evaluation of the subsegmental pulmonary arteries limited by respiratory motion, particularly at the lung bases. 2. New diffuse pulmonary groundglass opacity with more discrete clustered peribronchovascular nodularity at the bilateral upper lobes, most suggestive of an infectious/inflammatory bronchiolitis, though atypical pulmonary edema or acute lung injury could appear similar. VTE: negative. Electronically signed by: London Arreaga MD 04/12/2024 03:34 PM EDT
[2024-04-12 10:47] VITALS: BP 115/71; PULSE 79; RESP 24; TEMP 37; O2SAT 99; BMI 34.5
--- NOTE | 2024-04-12 10:52 | ECG_ITS ---
Test Reason : sob Blood Pressure : / mmHG Vent. Rate : 076 BPM Atrial Rate : 076 BPM P-R Int : 162 ms QRS Dur : 078 ms QT Int : 386 ms P-R-T Axes : 020 010 004 degrees QTc Int : 434 ms Normal sinus rhythm Normal ECG When compared with ECG of 15-MAR-2024 12:52, Nonspecific T wave abnormality, improved in Anterior leads Referred By: Generic ED Physician Electronically Signed By:KENRICK SORIANO
[2024-04-12] MEDS: Albuterol Sulfate 2.5 MG, Albuterol/Iprat 2.5/0.5MG 3 ML 3 ML INHALE ×2 (11:05→12:05)
[2024-04-12 11:06] VITALS: PULSE 79; RESP 24; O2SAT 96
[2024-04-12 11:31] LABS: MANUAL DIFF FLAG NO
[2024-04-12 11:35] LABS: Basophils Percent Auto 0.8 % (0-2); Eosinophils Absolute Auto 0.3 X10*3/uL (0.0-0.4); Eosinophils Percent Auto 5.7 % (0-4); Hematocrit 31.8 % (37.0-47.0); Hemoglobin 9.9 g/dl (12.0-16.0); Imm Gran Abs Auto 0.03 X10*3/uL (0.00-0.03); Imm Gran Pct Auto 0.6 % (0.0-0.4); Lymphocytes Absolute Auto 1.6 X10*3/uL (1.2-4.9); Lymphocytes Percent Auto 31.5 % (20-40); Mean Corpuscular HGB Conc 31.1 g/dl (31.0-35.0); Mean Corpuscular Hemoglobin 24.6 pg (27.0-33.0); Mean Corpuscular Volume 79.1 fL (80.0-98.0); Mean Platelet Volume 9.5 fL (9.4-12.3); Monocytes Absolute Auto 0.5 X10*3/uL (0.1-1.2); Monocytes Percent Auto 10.4 % (2-11); Neutrophils Absolute Auto 2.6 x10*3/uL (2.0-8.3); Platelet Count 358 X10*3/uL (160-400); Red Blood Count 4.02 X10*6/uL (4.20-5.50); White Blood Count 5.1 X10*3/uL (4.8-10.8)
[2024-04-12 11:52] LABS: Anion Gap 10 (12-20); Blood Urea Nitrogen 13 mg/dL (9-16); Calcium 9.4 mg/dL (8.4-10.2); Carbon Dioxide 27 mmol/L (22-29); Chloride 106 mmol/L (96-108); Creatinine Clr Calc Pharmacy 75.7; Estimated Glomerular Filt Rate > 60; Glucose Random 101 mg/dL (60-115); Potassium 3.7 mmol/L (3.3-5.1); Sodium 139 mmol/L (135-145)
[2024-04-12 11:55] LABS: B Type Natriuretic Peptide 89 pg/mL (<100)
--- NOTE | 2024-04-12 12:00 | ED.SOB ---
HPI - SOB/Dyspnea General Chief Complaint: Dyspnea Stated Complaint: SOB - asthma Time Seen by Provider: 04/12/24 11:24 Source: patient Mode of arrival: ambulatory Limitations: no limitations History of Present Illness ED Provider: DR. Quesada HPI Narrative: 53-year-old female history of asthma presented with 2 weeks' history of shortness of breath, no chest pain, patient has been taking her prescribed albuterol at home with no relief, patient is nonsmoker, no recent history of prolonged immobilization or traveling, no lower extremity swelling or tenderness, no PND. No fever, no chills. Related Data Home Medications ?Medication ?Instructions ?Recorded ?Confirmed azelastine 137 mcg (0.1 %) nasal 2 spray intranasal BID 12/26/21 03/24/24 spray calcium citrate 200 mg (950 mg) 1 tab PO DAILY 12/26/21 03/24/24 tablet cholecalciferol (vitamin D3) 25 1 tab PO DAILY 12/26/21 03/24/24 mcg (1,000 unit) tablet fluticasone propionate 230 1 puff inhalation BID 12/26/21 03/24/24 mcg-salmeterol 21 mcg/actuation HFA inhaler (Advair HFA) hydroxyzine HCl 25 mg tablet 1 tab PO Q8H PRN itch 12/26/21 03/24/24 ketotifen fumarate 0.025 % (0.035 1 drp ophthalmic (eye) BID PRN itch 12/26/21 03/24/24 %) eye drops loratadine 10 mg tablet 1 tab PO DAILY 12/26/21 03/24/24 montelukast 10 mg tablet 1 tab PO BEDTIME 12/26/21 03/24/24 omeprazole 40 mg capsule,delayed 1 cap PO DAILY@0630 12/26/21 03/24/24 release tiotropium bromide 1.25 2 puff PO DAILY 12/26/21 03/24/24 mcg/actuation mist for inhalation (Spiriva Respimat) folic acid 1 mg tablet 1 mg PO DAILY 07/24/22 03/24/24 tezepelumab-ekko 210 mg/1.91 mL mg subcut 10/15/22 03/24/24 (110 mg/mL) subcutaneous syringe (Tezspire) ibuprofen 800 mg tablet 800 mg PO TID PRN 05/06/23 03/24/24 bupropion HCl 300 mg 24 hr tablet, 300 mg PO DAILY 12/22/23 03/24/24 extended release naltrexone 50 mg tablet 50 mg PO DAILY 12/22/23 03/24/24 Previous Rx's ?Medication ?Instructions ?Recorded guaifenesin 1,200 mg tablet, 1,200 mg PO BID #10 tabs 06/03/23 extended release 12 hr (Mucus Relief ER) ipratropium bromide 0.02 % 2.5 ml inhalation QID PRN for 12/24/23 solution for inhalation wheezing #125 mL prednisone 20 mg tablet 40 mg (2 x 20 mg) PO DAILY 5 days 12/31/23 #10 tabs benzonatate 100 mg capsule 100 mg PO BID PRN cough #14 caps 03/15/24 cefuroxime axetil 250 mg tablet 500 mg (2 x 250 mg) PO BID 10 days 03/15/24 #40 tabs doxycycline hyclate 100 mg tablet 100 mg PO BID 10 days #20 tabs 03/15/24 ipratropium 20 mcg-albuterol 100 1 puff inhalation QID COPD 30 days 03/21/24 mcg/actuation mist for inhalation #4 grams (Combivent Respimat) albuterol sulfate 90 mcg/actuation 2 inh inhalation Q6H PRN shortness 04/12/24 breath activated powder inhaler of breath or wheezing #1 ea azithromycin 250 mg tablet See Rx Instructions PO .COMPLEX #6 04/12/24 (Zithromax) tabs guaifenesin 200 mg/5 mL oral liquid 200 mg (5 mL) PO Q4H PRN cough 04/12/24 #118 mL prednisone 20 mg tablet 20 mg PO BID #10 tabs 04/12/24 Allergies Allergy/AdvReac Type Severity Reaction Status Date / Time latex [Latex] Allergy Mild UNKNOWN Verified 04/12/24 10:51 cats, pollen, mold Allergy Unknown Unknown Uncoded 03/24/24 14:30 Latex Allergy Unknown Unknown Uncoded 03/24/24 14:30 Review of Systems Review of Systems: All other systems are reviewed and are negative Constitutional: Reports as per HPI and Reports no additional constitutional complaints Eyes: Reports as per HPI and Reports no additional eye complaints Reports system reviewed and no additional complaints, except as documented Cardiovascular: Reports as per HPI and Reports no additional cardiovascular complaints Respiratory: Reports as per HPI and Reports no additional respiratory complaints Gastrointestinal: Reports as per HPI and Reports no additional gastrointestinal complaints Genitourinary: Reports no additional female genitourinary complaints Musculoskeletal: Reports no additional musculoskeletal complaints Skin/Breast: Reports system reviewed and no additional complaints, except as docu Psychiatric: Reports no additional psychiatric complaints Endocrine: Reports no additional endocrine complaints Hematologic/Lymphatic: Reports no additional hematologic/lymphatic complaints Allergic/Immunologic: Reports no additional allergic/immunologic complaints Reports system reviewed and no additional complaints, except as documented and Reports Abnormal speech present [facility] Past Medical History Medical History Bronchitis SPARKLE (obstructive sleep apnea) Allergic rhinitis Asthma Pulmonary embolism Pulmonary cavitary lesion COPD (chronic obstructive pulmonary disease) Pulmonary cavitary lesion Asthma Surgical History H/O gastric sleeve History of partial hysterectomy History of surgery on wrist History of ankle surgery History of knee replacement Family History Family History Father Prostate cancer Social History Social History Household Members: Spouse and Family Housing: House Are you a primary critical care paramedic to a significant other at home: Yes (mother) Do you presently have visiting nurse or other home services: Yes Unable to assess alcohol history related to: Unknown Alcohol intake: never Patient Tobacco Use Status: Never used Tobacco Advance Directives: No Advance Directives Information Provided: Yes Advance Directives Date on File: 12/26/21 service: No Current occupational status: disabled Physical Exam Vital Signs: Vital Signs: Last Vital Signs Temp 98.7 F 04/12/24 13:41 Pulse 85 04/12/24 13:41 Resp 14 04/12/24 13:41 BP 116/52 L 04/12/24 13:41 Pulse Ox 95 04/12/24 13:41 O2 Del Method Room Air 04/12/24 13:41 BMI result Body Mass Index 34.5 Vital signs have been reviewed and appear to be correct. Blood pressure elevated. Heart rate normal. Respiratory rate normal. Temperature normal. Oxygen saturation normal. Appearance: Alert. Oriented X3. No acute distress. Head: Normal external exam. Normocephalic. Atraumatic. No Stroud signs noted. No raccoon eyes noted Eyes: PERRLA. EOMI. Conjunctiva and sclera normal. Eyelids normal. ENT: TM's Normal. Pharynx normal. Uvula midline. Moist mucous membranes. No trismus noted. No drooling noted. No muffled voice noted. Neck: Normal inspection. Neck supple. FROM. No adenopathy. Thyroid Normal. No meningeal signs. No neck mass noted. CVS: Normal heart rate and rhythm. Heart sound normal. No murmurs noted. Pulses normal throughout. Respiratory: No respiratory distress. Painless inspiration. Diminish breathing sounds bilaterally, prolonged expiration with expiratory wheezing. Chest nontender. No accessory muscle usage noted or decreased air movement noted. Abdomen: Soft and nontender. Bowel sounds normal in all 4 quadrants. No distention noted. No organomegaly noted. No visible injury noted. Back: No CVA tenderness. Full range of motion noted. Skin: Skin warm and dry. Normal skin color. Normal skin turgor. No rashes/lesions/lacerations noted. Extremities: No lower extremity edema. Extremities exhibit normal range of motion. Extremities nontender. Neuro: Oriented X 3. Cranial nerve exam: II-XII are grossly intact No motor deficit. No sensory deficit. Reflexes normal. Course Reevaluation(s) Reevaluation #1: Acute bronchitis, CTA showed no pulmonary embolism or any other intra thoracic pathology. Physical exam is consistent with acute bronchitis. Will start the patient on prednisone, albuterol, Z-Laexis, coughing medication. Time: 14:57 Medications Administered Discontinued Medications Generic Name Dose Route Start Last Admin Trade Name Sony PRN Reason Stop Dose Admin Albuterol Sulfate 2.5 mg/ 0 mg 04/12/24 11:00 04/12/24 11:05 Albuterol/Ipratropium 3 ml INHALE 04/12/24 11:01 5 dose ONCE ONE Administration Albuterol Sulfate 2.5 mg/ 0 mg 04/12/24 12:01 04/12/24 12:05 Albuterol/Ipratropium 3 ml INHALE 04/12/24 12:02 7.5 dose ONCE ONE Administration Iohexol 100 ml 04/12/24 13:52 04/12/24 13:55 Iohexol 350 Mg/Ml 100 Ml Infus..Btl IV 04/12/24 13:53 65 ml ONCE ONE Administration Prednisone 40 mg 04/12/24 11:59 04/12/24 12:14 Prednisone 20 Mg Tablet PO 04/12/24 12:00 40 mg ONCE ONE Administration Medical Decision Making Differential Diagnosis Differential Diagnoses: The differential diagnosis associated with the presentation includes (Acute bronchitis, pneumonia, pneumothorax, pleural effusion, pulmonary embolism, severe anemia, electrolyte derangement.) Admission/Observation Consideration of admission/observation: Escalation of care including admission/observation considered Lab Data MDM Lab Attestation statement: I reviewed the patient's lab results. 04/12/24 11:26 04/12/24 11:26 Labs: Lab Results 04/12/24 04/12/24 04/12/24 Range/Units 11:26 11:46 12:09 WBC 5.1 (4.8-10.8) X10*3/uL RBC 4.02 L (4.20-5.50) X10*6/uL Hgb 9.9 L (12.0-16.0) g/dl Hct 31.8 L (37.0-47.0) % MCV 79.1 L (80.0-98.0) fL MCH 24.6 L (27.0-33.0) pg MCHC 31.1 (31.0-35.0) g/dl RDW 17.0 H (11.0-16.0) % Plt Count 358 (160-400) X10*3/uL MPV 9.5 (9.4-12.3) fL Immature Gran % (Auto) 0.6 H (0.0-0.4) % Neut % (Auto) 51.0 (45-73) % Lymph % (Auto) 31.5 (20-40) % [place] % (Auto) 10.4 (2-11) % Eos % (Auto) 5.7 H (0-4) % Baso % (Auto) 0.8 (0-2) % Lymph # (Auto) 1.6 (1.2-4.9) X10*3/uL [place] # (Auto) 0.5 (0.1-1.2) X10*3/uL Eos # (Auto) 0.3 (0.0-0.4) X10*3/uL Baso # (Auto) 0.0 (0.0-0.2) X10*3/uL Abs Immat Gran (auto) 0.03 (0.00-0.03) X10*3/uL Absolute Neuts (auto) 2.6 (2.0-8.3) x10*3/uL Absolute Nucleated RBC 0.000 (0.0-0.012) X10*3/uL Nucleated RBC % (auto) 0.0 (0.0-0.2) /100WBC D-Dimer High Sensitivty 747 NG/ML Sodium 139 (135-145) mmol/L Potassium 3.7 (3.3-5.1) mmol/L Chloride 106 (96-108) mmol/L Carbon Dioxide 27 (22-29) mmol/L Anion Gap 10 L (12-20) BUN 13 (9-16) mg/dL Creatinine 0.82 (0.5-1.4) mg/dL Estim Creat Clear Calc 75.7 Estimated GFR > 60 Random Glucose 101 (60-115) mg/dL Calcium 9.4 (8.4-10.2) mg/dL B-Natriuretic Peptide 89 (<100) pg/mL Influenza Type A (PCR) NEGATIVE (Negative) Influenza Type B (PCR) NEGATIVE (Negative) RSV RNA Qual (PCR) NEGATIVE (Negative) SARS-CoV-2 RNA (RT-PCR) NEGATIVE (Negative) Independent Interpretation I performed an independent interpretation of an: Plain X-Ray (No acute intrathoracic pathology.) and CT Scan (No pulmonary embolism.) Radiology Impression Discussion of test interpretation with radiology: I have reviewed the radiologist's reading. Discharge Plan Discharge Clinical Impression: Bronchopneumonia Patient Disposition: Home, Self-Care Instructions: Acute Bronchitis (ED) Prescriptions: New albuterol sulfate 90 mcg/actuation aerosol powdr breath activated 2 inh inhalation Q6H PRN (Reason: shortness of breath or wheezing) Qty: 1 0RF prednisone 20 mg tablet 20 mg PO BID Qty: 10 0RF guaifenesin 200 mg/5 mL liquid 200 mg PO Q4H PRN (Reason: cough) Qty: 118 0RF azithromycin [Zithromax] 250 mg tablet See Rx Instructions .ROUTE .COMPLEX Qty: 6 0RF Rx Instructions: For 250 mg dose pack: take 500 mg today (day 1), then 250 mg for 4 days (days 2-5) No Action ipratropium bromide 0.02 % solution 2.5 ml inhalation QID PRN (Reason: for wheezing) Qty: 125 3RF Combivent Respimat 20-100 mcg/actuation mist 1 puff inhalation QID 30 Days Qty: 4 4RF ketotifen fumarate 0.025 % (0.035 %) drops 1 drp ophthalmic (eye) BID PRN (Reason: itch) omeprazole 40 mg capsule,delayed release(DR/EC) 1 cap PO DAILY@0630 montelukast 10 mg tablet 1 tab PO BEDTIME hydroxyzine HCl 25 mg tablet 1 tab PO Q8H PRN (Reason: itch) azelastine 137 mcg (0.1 %) aerosol,spray 2 spray intranasal BID loratadine 10 mg tablet 1 tab PO DAILY calcium citrate 200 mg (950 mg) tablet 1 tab PO DAILY Advair HFA 230-21 mcg/actuation HFA aerosol inhaler 1 puff inhalation BID cholecalciferol (vitamin D3) 25 mcg (1,000 unit) tablet 1 tab PO DAILY Spiriva Respimat 1.25 mcg/actuation mist 2 puff PO DAILY guaifenesin [Mucus Relief ER] 1,200 mg tablet extended release 12hr 1,200 mg PO BID Qty: 10 0RF prednisone 20 mg tablet 40 mg PO DAILY 5 Days Qty: 10 0RF cefuroxime axetil 250 mg tablet 500 mg PO BID 10 Days Qty: 40 0RF doxycycline hyclate 100 mg tablet 100 mg PO BID 10 Days Qty: 20 0RF benzonatate 100 mg capsule 100 mg PO BID PRN (Reason: cough) Qty: 14 0RF Tezspire 210 mg/1.91 mL (110 mg/mL) syringe subcut folic acid 1 mg tablet 1 mg PO DAILY ibuprofen 800 mg tablet 800 mg PO TID PRN bupropion HCl 300 mg tablet extended release 24 hr 300 mg PO DAILY naltrexone 50 mg tablet 50 mg PO DAILY Referrals: Gt Prescott III, MD [Primary Care Provider] - Print Language: Panamanian
[2024-04-12 12:06] VITALS: PULSE 79; RESP 18; O2SAT 94
[2024-04-12] MEDS: predniSONE 20 MG TABLET 40 MG PO (12:14)
[2024-04-12 12:24] LABS: D Dimer High Sensitivity 747 NG/ML
[2024-04-12 12:30] LABS: Influenza A PCR NEGATIVE (Negative); Influenza B PCR NEGATIVE (Negative); Resp Syncy Virus RNA Qual PCR NEGATIVE (Negative); SARS COV2 PCR INHOUSE NEGATIVE (Negative)
[2024-04-12 13:41] VITALS: BP 116/52; PULSE 85; RESP 14; TEMP 37.1; O2SAT 95
[2024-04-12] MEDS: iohexoL 350 MG/ML 100 ML INFUS..BTL IV (13:55)
[2024-04-12 16:18] VITALS: BP 117/65; PULSE 79; RESP 16; TEMP 37.1; O2SAT 96
[2024-04-12 16:20] VITALS: BP 117/65; PULSE 79; RESP 16; TEMP 37.1; O2SAT 96
== END 2024-04-12 16:21 | disposition home or self-care (01) ==
PROVIDERS: Emergency Provider Emergency Medicine; PCP Internal Medicine
DX: J18.0 Bronchopneumonia, unspecified organism (principal); R06.02 Shortness of breath; R05.9 Cough, unspecified; Z03.818 Encounter for observation for suspected exposure to other biological agents ruled out; Z79.899 Other long term (current) drug therapy; Z98.84 Bariatric surgery status
CPT/HCPCS: 0241U; 36415; 71046; 71275; 80048; 83880; 85025; 85379; 93005; 94640; 99284; Q9967

== ENCOUNTER 2024-04-20 10:04 | Outpatient (AMB) | payer OTHER, SELFPAY ==
[2024-04-20 10:27] VITALS: BP 132/78; PULSE 80; O2SAT 97; BMI 34.6
--- NOTE | 2024-04-20 10:27 | A.OFFVIS_ITS ---
Vital Signs 04/20/24 10:27 Height 5 ft 1 in Weight 182 lb 15.739 oz BMI 34.6 BP 132/78 Blood Pressure Location Lt brachial Position Sitting Pulse 80 Pulse Source Pulse Oximeter Pulse Oximetry (%) 97 Oxygen Delivery Method Room Air Intake Visit Reasons: PE Intake Note: pt is here for follow up and was in the ER and given prednisone for 5 days and a zpak but is still short of breath, no cough. dx bronchitits. pt sees composition floor layer and would like to wether tezpire should be continued. Employee Relations Assistant Required: No Allergies latex [Latex] Allergy (Mild, Verified 04/20/24 10:48) UNKNOWN cats, pollen, mold Allergy (Unknown, Uncoded 04/20/24 10:48) Unknown Latex Allergy (Unknown, Uncoded 04/20/24 10:48) Unknown Medication List - Last Reconciled 04/20/24 by Khadar Parker MD albuterol sulfate 90 mcg/actuation 2 inhalations inhalation Q6H PRN azelastine 2 sprays intranasal BID benzonatate 100 mg PO BID PRN bupropion HCl XL 300 mg PO DAILY calcium citrate 1 tab PO DAILY cholecalciferol (vitamin D3) 1 tab PO DAILY fluticasone propion-salmeterol 230-21 mcg/actuation (Advair HFA) 1 puff inhalati on BID folic acid 1 mg PO DAILY guaifenesin 200 mg (5 mL) PO Q4H PRN guaifenesin ER (Mucus Relief ER) 1,200 mg PO BID hydroxyzine HCl 1 tab PO Q8H PRN ibuprofen 800 mg PO TID PRN ipratropium bromide 2.5 mL inhalation QID PRN ipratropium-albuterol 20-100 mcg/actuation (Combivent Respimat) 1 puff inhalation QID 30 days ketotifen fumarate 0.025%(0.035%) 1 drp ophthalmic (eye) BID PRN loratadine 1 tab PO DAILY montelukast 1 tab PO BEDTIME naltrexone 50 mg PO DAILY omeprazole 1 cap PO DAILY@0630 tezepelumab-ekko (Tezspire) mg subcut tiotropium bromide 1.25 mcg/actuation (Spiriva Respimat) 2 puffs PO DAILY Do you need a note to return to daycare/school/sports/work: No HPI HPI PE: Details: THIS 53 YEARS OLD FEMALE IS HERE FOR AN URGENT VISIT, FOR FOLLOW-UP AFTER HER EMERGENCY ROOM VISIT , 1 WEEK AGO . SHE HAS PRESENTED TO THE EMERGENCY ROOM WITH INCREASING SHORTNESS OF BREATH, AND SOME C.OUGH THERE WAS NO CHEST PAIN. PATIENT WAS A GAIN THOROUGHLY EVALUATED WITH CTA OF THE CHEST, CHEST X-RAY, , LAB TESTS, AND THEN STARTED ON A PREDNISONE TAPER WELL Z-EMMANUEL. THE CTA OF THE CHEST HAD SHOWN NONSPECIFIC HAZINESS IN UPPER LOBES SUGGESTING INFLAMMATORY PROCESS SUCH BRONCHIOLITIS OR ALVEOLITIS. SHE DID NOT HAVE ANY SIGNS OF ACUTE BACTERIAL INFECTION. TODAY SHE COMES FOR FOLLOW-UP AND CLAIMS THAT HER BREATHING IS DEFINITELY IMPROVED AFTER COMPLETING THE COURSE. OF PREDNISONE SHE REMAINS VERY WEAK SORT OF DEPRESSED , BECAUSE OF RECURRENT BOUTS OF SHORTNESS OF BREATH. SHE HAS BEEN RECENTLY STARTED ON TEZSPIRE ( BIOLOGIC TREATMEN ) BY THE ALLERGY SPECIALISTS, SHE IS QUESTIONING ME IF SHE SHOULD CONTINUE THAT OR NOT. SHE IS ASKING IF THIS NEW MEDICINE IS INCREASING HER SHORTNESS .OF BREATH [facility] Medical History (Updated 04/20/24 @ 13:12 by Khadar Parker MD) Allergic alveolitis Bronchitis SPARKLE (obstructive sleep apnea) Allergic rhinitis Asthma Pulmonary embolism Pulmonary cavitary lesion COPD (chronic obstructive pulmonary disease) Pulmonary cavitary lesion Asthma Surgical History H/O gastric sleeve History of partial hysterectomy History of surgery on wrist History of ankle surgery History of knee replacement Family History Father Prostate cancer Social History Household Members: Spouse and Family Caregiver staying overnight: No Housing: House Are you a primary nurse behavioral health care to a significant other at home: Yes (mother) Do you presently have visiting nurse or other home services: Yes Unable to assess alcohol history related to: Unknown Alcohol intake: never Patient Tobacco Use Status: Never used Tobacco Advance Directives Date on File: 12/26/21 service: No Current occupational status: disabled Female Reproductive History Menstrual Age of Menarche: 7 Review of Systems Const All systems reviewed & are unremarkable except as noted in HPI and below Eyes Reports no additional complaints ENT Reports no additional complaints Card Denies chest pain, Denies irregular heart rhythm and Denies leg edema Resp Reports as per HPI GI Reports no additional complaints Reports no additional complaints Musc Reports no additional complaints Skin/Breast Reports system reviewed and no additional complaints, except as documented Neuro Reports no additional complaints Psych Reports anxiety and Reports depression Endo Reports no additional complaints Physical Exam Vital Signs: Last Vital Signs Pulse 80 04/20/24 10:27 BP 132/78 04/20/24 10:27 Pulse Ox 97 04/20/24 10:27 Oxygen Delivery Method Room Air 04/20/24 10:27 BMI result Body Mass Index 34.6 Const General: comfortable (But short of breath on minimal walking and during conversation.), no acute distress, alert and awake Orientation/consciousness: patient oriented x3 HEENT Head: Yes normal to inspection General nose exam: No nasal polyps present and No nasal discharge present Face and sinus: Yes sinuses nontender Mouth: oropharynx normal Throat: Yes posterior oropharynx normal Eyes General: appearance normal, both eyes and all related structures Neck Neck: Yes normal visual inspection, Yes no lymphadenopathy, Yes trachea midline and Yes no JVD Thyroid: Thyroid normal Chest Chest palpation & inspection: normal inspection of the chest, normal palpation of entire chest wall and no tenderness Resp Other: Percussion note resonant, breath sounds are distant but equal on both sides. No audible wheezes . NO CREPITATIONS ARE HEARD. Cardio Palpation: normal PMI Rate: regular rate Rhythm: regular rhythm Heart sounds: no gallops and no murmurs Peripheral pulses: Peripheral pulses 2+ throughout GI Palpation (GI): Soft to palpation, nontender, No hepatosplenomegaly present and no masses Auscultation: normal bowel sounds Back/Spine/Pelvis Thoracic/Lumbar Spine: thoracic and lumbar spine normal to inspection Skin General skin exam: no rashes or lesions noted Neuro General: patient oriented x3 and no focal motor deficits Cranial nerves: Yes CN's II-XII intact bilaterally Extrem General: Yes normal to inspection, Yes no clubbing, cyanosis or edema and Yes no calf tenderness Psych Speech and movement: Normal speech and movement present Results Reviewed Results Reviewed: 04/12/24 CTA OF CHEST IMPRESSION: 1. No pulmonary emboli through the segmental pulmonary arteries. Evaluation of the subsegmental pulmonary arteries limited by respiratory motion, particularly at the lung bases. 2. New diffuse pulmonary groundglass opacity with more discrete clustered peribronchovascular nodularity at the bilateral upper lobes, most suggestive of an infectious/inflammatory bronchiolitis, though atypical pulmonary edema or acute lung injury could appear similar. VTE: negative. Assessment & Plan Assessment & Plan (1) COPD (chronic obstructive pulmonary disease): Comment: This patient has been treated for long time as a case of advanced chronic obstructive pulmonary disease/ severe asthma. It seems to be well controlled at this time. As noted above in the history she has been seen in the emergency room multiple times with acute bronchitis./ inflammatory process She had no pneumonia or evidence of any pulmonary embolism. I think she is becoming dependent on steroids, and when she stops taking prednisone she gets another bout alveolitis, especially in the upper lobes. Lungs are very clear at this time. But she remains weak and tired. Code(s): J44.9 - Chronic obstructive pulmonary disease, unspecified Category: Medical Plan: I plan to keep her on prednisone small dose, 5 mg once a day for a few weeks and then follow her closely. she definitely does not need any antibiotics at this time CONTINUE ADVAIR HFA 230-212 PUFFS B.I.D. AND COMBIVENT RESPIMAT 2 0-100 1 INHALATION Q.I.D.. ALSO USE IPRATROPIUM SOLUTION 2.5 MALE IN THE NEBULIZER Q 4-6 HOURS P.R.N. OR ALBUTEROL HFA 2 PUFFS Q 6 HOURS P.R.N.. (2) Pulmonary cavitary lesion: Comment: Pneumonia and cavitary lesion in the right upper lobe ,Completely resolved. A 4 mm nodule in left upper lobe, increased from 3 mm, would need to be followed, by is CT scan in 1 year. Code(s): J98.4 - Other disorders of lung Category: Medical Plan: ABOVE (3) Allergic rhinitis: Comment: This patient does have symptoms of chronic allergic rhinitis. She has been under care of allergy specialists, Code(s): J30.9 - Allergic rhinitis, unspecified Category: Medical Plan: Use Azelastin 2 spray in each nostril b.i.d. Continue montelukast 10 mg daily. (4) Asthma: Comment: She has Asthma/COPD . Code(s): J45.909 - Unspecified asthma, uncomplicated Category: Medical Plan: see under COPD (5) Allergic alveolitis: Comment: the findings described on CTA of the chest suggest that she gets inflammatory process in the upper lobes, alveolitis/ bronchiolitis. and it is not due to any active bacterial infection. Code(s): J67.9 - Hypersensitivity pneumonitis due to unspecified organic dust Category: Medical Plan: I plan to keep her on prednisone 5 mg a day for the next few weeks , and see if it can help in minimizing the recurrence of inflammatory process. Medications: New prednisone 5 mg PO DAILY 30 days 30 tabs 0RF alveolitis Coding Level of Care Code Est Pt Level 4 (31743) Diagnoses COPD (chronic obstructive pulmonary disease) J44.9 Pulmonary cavitary lesion J98.4 Allergic rhinitis J30.9 Asthma J45.909 Allergic alveolitis J67.9
== END 2024-04-20 10:58 | disposition home or self-care (01) ==
PROVIDERS: PCP Internal Medicine; Visit Provider Internal Medicine
DX: J44.9 Chronic obstructive pulmonary disease, unspecified (principal); J98.4 Other disorders of lung; J30.9 Allergic rhinitis, unspecified; J45.909 Unspecified asthma, uncomplicated; J67.9 Hypersensitivity pneumonitis due to unspecified organic dust
CPT/HCPCS: 99214

== ENCOUNTER → 2024-04-20 10:04 | Outpatient (BNVA) | payer OTHER, SELFPAY | PROVIDERS: PCP Internal Medicine; Visit Provider Internal Medicine | DX: J44.9 Chronic obstructive pulmonary disease, unspecified (principal); J98.4 Other disorders of lung; J30.9 Allergic rhinitis, unspecified; J67.9 Hypersensitivity pneumonitis due to unspecified organic dust | CPT/HCPCS: 99212 ==

== ENCOUNTER 2024-06-30 10:17 | Outpatient (AMB) | payer OTHER, SELFPAY ==
--- NOTE | 2024-06-30 10:20 | A.OFFVIS_ITS ---
Vital Signs 06/30/24 10:25 Height 5 ft 1 in Weight 177 lb BMI 33.4 BP 134/70 Blood Pressure Location Rt brachial Position Sitting Pulse 69 Pulse Source Pulse Oximeter Pulse Oximetry (%) 98 Oxygen Delivery Method Room Air Intake Visit Reasons: Shortness of breath Yard Inspector Required: No Associate Professor Of Surgery: Associate Professor Of Surgery offered & declined Accompanied by: Self / Same As Patient Allergies latex [Latex] Allergy (Mild, Verified 06/30/24 10:54) UNKNOWN cats, pollen, mold Allergy (Unknown, Uncoded 06/30/24 10:54) Unknown Latex Allergy (Unknown, Uncoded 06/30/24 10:54) Unknown Medication List - Last Reconciled 06/30/24 by Khadar Parker MD albuterol sulfate 90 mcg/actuation 2 inhalations inhalation Q6H PRN azelastine 2 sprays intranasal BID benzonatate 100 mg PO BID PRN bupropion HCl XL 300 mg PO DAILY calcium citrate 1 tab PO DAILY cholecalciferol (vitamin D3) 1 tab PO DAILY fluticasone propion-salmeterol 230-21 mcg/actuation (Advair HFA) 1 puff inhalation BID folic acid 1 mg PO DAILY guaifenesin 200 mg (5 mL) PO Q4H PRN guaifenesin ER (Mucus Relief ER) 1,200 mg PO BID hydroxyzine HCl 1 tab PO Q8H PRN ibuprofen 800 mg PO TID PRN ipratropium bromide 2.5 mL inhalation QID PRN ipratropium-albuterol 20-100 mcg/actuation (Combivent Respimat) 1 puff inhalation QID 30 days ketotifen fumarate 0.025%(0.035%) 1 drp ophthalmic (eye) BID PRN loratadine 1 tab PO DAILY montelukast 1 tab PO BEDTIME naltrexone 50 mg PO DAILY omeprazole 1 cap PO DAILY@0630 tezepelumab-ekko (Tezspire) mg subcut tiotropium bromide 1.25 mcg/actuation (Spiriva Respimat) 2 puffs PO DAILY Do you need a note to return to daycare/school/sports/work: No HPI HPI Shortness of breath: Details: THIS 54 YEARS OLD FEMALE WITH DIAGNOSIS OF ALLERGIC RHINITIS AND BRONCHIAL ASTHMA, WHO HAS HAD CAVITARY PNEUMONIA IN THE PAST. CURRENTLY ON BIOLOGIC TREATMENT , DOING MUCH BETTER. SHE HAS ONLY MILD NASAL CONGESTION. WITH POSTNASAL DRIP DENIES ANY WHEEZING STILL HAS SOME INTERMITTENT COUGH. STILL GETS SHORT OF BREATH IF SHE WALKS UP HILL OR FAST. SHE HAD SHOULDER SURGERY, RECENTLY AND HAS HER LEFT ARM IN A SLING LOOKS SLIGHTLY PALE THIS MAY BE DUE TO POSTOPERATIVE ANEMIA. [facility] Medical History Allergic alveolitis Bronchitis SPARKLE (obstructive sleep apnea) Allergic rhinitis Asthma Pulmonary embolism Pulmonary cavitary lesion COPD (chronic obstructive pulmonary disease) Pulmonary cavitary lesion Asthma Surgical History H/O gastric sleeve History of partial hysterectomy History of surgery on wrist History of ankle surgery History of knee replacement Family History Father Prostate cancer Social History Household Members: Spouse and Family Caregiver staying overnight: No Housing: House Are you a primary career placement services counselor to a significant other at home: Yes (mother) Do you presently have visiting nurse or other home services: Yes Unable to assess alcohol history related to: Unknown Alcohol intake: never Patient Tobacco Use Status: Never used Tobacco Advance Directives Date on File: 12/26/21 service: No Current occupational status: disabled Female Reproductive History Menstrual Age of Menarche: 7 Review of Systems Const All systems reviewed & are unremarkable except as noted in HPI and below Eyes Reports no additional complaints ENT Reports no additional complaints Card Denies chest pain, Denies irregular heart rhythm and Denies leg edema Resp Reports as per HPI GI Reports no additional complaints Reports no additional complaints Musc Reports no additional complaints Skin/Breast Reports system reviewed and no additional complaints, except as documented Neuro Reports no additional complaints Psych Reports anxiety and Reports depression Endo Reports no additional complaints Physical Exam Vital Signs: Last Vital Signs Pulse 69 06/30/24 10:25 BP 134/70 06/30/24 10:25 Pulse Ox 98 06/30/24 10:25 Oxygen Delivery Method Room Air 06/30/24 10:25 BMI result Body Mass Index 33.4 Const General: comfortable (But short of breath on minimal walking and during conversation.), no acute distress, alert and awake Orientation/consciousness: patient oriented x3 HEENT Head: Yes normal to inspection General nose exam: No nasal polyps present and No nasal discharge present Face and sinus: Yes sinuses nontender Mouth: oropharynx normal Throat: Yes posterior oropharynx normal Eyes General: appearance normal, both eyes and all related structures Neck Neck: Yes normal visual inspection, Yes no lymphadenopathy, Yes trachea midline and Yes no JVD Thyroid: Thyroid normal Chest Chest palpation & inspection: normal inspection of the chest, normal palpation of entire chest wall and no tenderness Resp Other: Percussion note resonant, breath sounds are distant but equal on both sides. No audible wheezes . NO CREPITATIONS ARE HEARD. Cardio Palpation: normal PMI Rate: regular rate Rhythm: regular rhythm Heart sounds: no gallops and no murmurs Peripheral pulses: Peripheral pulses 2+ throughout GI Palpation (GI): Soft to palpation, nontender, No hepatosplenomegaly present and no masses Auscultation: normal bowel sounds Back/Spine/Pelvis Thoracic/Lumbar Spine: thoracic and lumbar spine normal to inspection Skin General skin exam: no rashes or lesions noted Neuro General: patient oriented x3 and no focal motor deficits Cranial nerves: Yes CN's II-XII intact bilaterally Extrem General: Yes normal to inspection, Yes no clubbing, cyanosis or edema and Yes no calf tenderness Psych Speech and movement: Normal speech and movement present Assessment & Plan Assessment & Plan (1) Allergic rhinitis: Comment: This patient does have symptoms of chronic allergic rhinitis. She has been under care of allergy specialists, At present her symptoms are minimal and seem to be better controlled. Code(s): J30.9 - Allergic rhinitis, unspecified Category: Medical Plan: Continue Azelastin 2 spray each nostril b.i.d. Montelukast 10 mg daily. May use loratadine 10 mg once a day p.r.n. (2) Asthma: Comment: She has Asthma/COPD . Currently it seems to be under control since she has been on biologic treatment with TREZSPIRE Code(s): J45.909 - Unspecified asthma, uncomplicated Category: Medical Plan: Advised to continue present treatment with Trezspire injection every month Wixela 250-51 inhalation b.i.d. Spiriva Respimat 1.25 mcg 2 inhalations daily Combivent Respimat 1 inhalation Q 4-6 hours p.r.n. ( as the rescue inhaler) (3) Pulmonary embolism: Comment: Diagnosed to have pulmonary embolism on 06/04/22 No original focus of DVT . Patient completed anticoagulants for almost 8 months and then anticoagulation was stopped . She has had no recurrence. Code(s): I26.99 - Other pulmonary embolism without acute cor pulmonale Category: Medical Plan: No anti coagulants at this time (4) Allergic alveolitis: Comment: The findings described on CTA of the chest suggest that she gets inflammatory process in the upper lobes, alveolitis/ bronchiolitis. and it is not due to any active bacterial infection. Prednisone 5 mg a day for the 3 weeks seems to have helped, now she is not on prednisone. Code(s): J67.9 - Hypersensitivity pneumonitis due to unspecified organic dust Category: Medical Plan: Will watch closely and early next year may get a repeat CT scan for follow-up Coding Level of Care Code Est Pt Level 4 (46490) Diagnoses Allergic rhinitis J30.9 Asthma J45.909 Pulmonary embolism I26.99 Allergic alveolitis J67.9
[2024-06-30 10:25] VITALS: BP 134/70; PULSE 69; O2SAT 98; BMI 33.4
== END 2024-06-30 10:54 | disposition home or self-care (01) ==
LOC: HO.HPS 10:18
PROVIDERS: PCP Internal Medicine; Visit Provider Internal Medicine
DX: J30.9 Allergic rhinitis, unspecified (principal); J45.909 Unspecified asthma, uncomplicated; I26.99 Other pulmonary embolism without acute cor pulmonale; J67.9 Hypersensitivity pneumonitis due to unspecified organic dust
CPT/HCPCS: 99214

== ENCOUNTER → 2024-06-30 10:17 | Outpatient (BNVA) | payer OTHER, SELFPAY | PROVIDERS: PCP Internal Medicine; Visit Provider Internal Medicine | DX: J45.909 Unspecified asthma, uncomplicated (principal); J67.9 Hypersensitivity pneumonitis due to unspecified organic dust; I26.99 Other pulmonary embolism without acute cor pulmonale; Z87.01 Personal history of pneumonia (recurrent) | CPT/HCPCS: 99212 ==

== ENCOUNTER 2024-08-29 15:56 | Outpatient (AMB) | payer OTHER, SELFPAY ==
[2024-08-29 16:08] VITALS: BP 124/70; PULSE 70; O2SAT 98; BMI 31.2
--- NOTE | 2024-08-29 16:08 | A.OFFVIS_ITS ---
Vital Signs 08/29/24 16:08 Height 5 ft 1 in Weight 165 lb 5.547 oz BMI 31.2 BP 124/70 Blood Pressure Location Lt brachial Position Sitting Pulse 70 Pulse Source Pulse Oximeter Pulse Oximetry (%) 98 Oxygen Delivery Method Room Air Intake Visit Reasons: shortness of breath Carton Forming Machine Helper Required: No Allergies latex [Latex] Allergy (Mild, Verified 08/29/24 16:26) UNKNOWN cats, pollen, mold Allergy (Unknown, Uncoded 08/29/24 16:26) Unknown Latex Allergy (Unknown, Uncoded 08/29/24 16:26) Unknown Medication List - Last Reconciled 08/29/24 by Khadar Parker MD albuterol sulfate 90 mcg/actuation 2 inhalations inhalation Q6H PRN azelastine 2 sprays intranasal BID benzonatate 100 mg PO BID PRN bupropion HCl XL 300 mg PO DAILY calcium citrate 1 tab PO DAILY cholecalciferol (vitamin D3) 1 tab PO DAILY fluticasone propion-salmeterol 230-21 mcg/actuation (Advair HFA) 1 puff inhalation BID folic acid 1 mg PO DAILY guaifenesin 200 mg (5 mL) PO Q4H PRN guaifenesin ER (Mucus Relief ER) 1,200 mg PO BID hydroxyzine HCl 1 tab PO Q8H PRN ibuprofen 800 mg PO TID PRN ipratropium bromide 2.5 mL inhalation QID PRN ipratropium-albuterol 20-100 mcg/actuation (Combivent Respimat) 1 puff inhalation QID 30 days ketotifen fumarate 0.025%(0.035%) 1 drp ophthalmic (eye) BID PRN loratadine 1 tab PO DAILY montelukast 1 tab PO BEDTIME naltrexone 50 mg PO DAILY omeprazole 1 cap PO DAILY@0630 tezepelumab-ekko (Tezspire) mg subcut tiotropium bromide 1.25 mcg/actuation (Spiriva Respimat) 2 puffs PO DAILY Do you need a note to return to daycare/school/sports/work: No HPI HPI shortness of breath : Details: THIS 54 YEARS OLD VERY PLEASANT FEMALE IS HERE FOR FOLLOW-UP AFTER 2 MONTHS. SHE HAS CHRONIC OBSTRUCTIVE PULMONARY DISEASE WELL RECURRENT ALLERGIC ALVEOLITIS, PRESENTING WITH ROUNDED DENSITIES IN THE UPPER LOBES . HAS BEEN DOING FAIRLY WELL. SHE HAD A TRIP TO [place] AND CAME BACK A FEW WEEKS AGO. AFTER THAT SHE HAD ACUTE SYMPTOMS OF INCREASED COUGH AND CHEST CONGESTION, TREATED BY HER PRIMARY CARE PHYSICIAN WITH A SHORT COURSE OF PREDNISONE AND FELT BETTER. NOW SHE DENIES ANY FEVER CHILLS. OR CHEST PAIN ALSO DENIES ANY SIGNIFICANT AMOUNT OF COUGH. [facility] Medical History Allergic alveolitis Bronchitis SPARKLE (obstructive sleep apnea) Allergic rhinitis Asthma Pulmonary embolism Pulmonary cavitary lesion COPD (chronic obstructive pulmonary disease) Pulmonary cavitary lesion Asthma Surgical History H/O gastric sleeve History of partial hysterectomy History of surgery on wrist History of ankle surgery History of knee replacement Family History Father Prostate cancer Social History Household Members: Spouse and Family Caregiver staying overnight: No Housing: House Are you a primary respiratory care practitioner to a significant other at home: Yes (mother) Do you presently have visiting nurse or other home services: Yes Unable to assess alcohol history related to: Unknown Alcohol intake: never Patient Tobacco Use Status: Never used Tobacco Advance Directives Date on File: 12/26/21 service: No Current occupational status: disabled Female Reproductive History Menstrual Age of Menarche: 7 Review of Systems Const All systems reviewed & are unremarkable except as noted in HPI and below Eyes Reports no additional complaints ENT Reports no additional complaints Card Denies chest pain, Denies irregular heart rhythm and Denies leg edema Resp Reports as per HPI GI Reports no additional complaints Reports no additional complaints Musc Reports no additional complaints Skin/Breast Reports system reviewed and no additional complaints, except as documented Neuro Reports no additional complaints Psych Reports anxiety and Reports depression Endo Reports no additional complaints Physical Exam Vital Signs: Last Vital Signs Pulse 70 08/29/24 16:08 BP 124/70 08/29/24 16:08 Pulse Ox 98 08/29/24 16:08 Oxygen Delivery Method Room Air 08/29/24 16:08 BMI result Body Mass Index 31.2 Const General: comfortable (But short of breath on minimal walking and during conversation.), no acute distress, alert and awake Orientation/consciousness: patient oriented x3 HEENT Head: Yes normal to inspection General nose exam: No nasal polyps present and No nasal discharge present Face and sinus: Yes sinuses nontender Mouth: oropharynx normal Throat: Yes posterior oropharynx normal Eyes General: appearance normal, both eyes and all related structures Neck Neck: Yes normal visual inspection, Yes no lymphadenopathy, Yes trachea midline and Yes no JVD Thyroid: Thyroid normal Chest Chest palpation & inspection: normal inspection of the chest, normal palpation of entire chest wall and no tenderness Resp Other: Percussion note resonant, breath sounds are distant but equal on both sides. No audible wheezes . NO CREPITATIONS ARE HEARD. Cardio Palpation: normal PMI Rate: regular rate Rhythm: regular rhythm Heart sounds: no gallops and no murmurs Peripheral pulses: Peripheral pulses 2+ throughout GI Palpation (GI): Soft to palpation, nontender, No hepatosplenomegaly present and no masses Auscultation: normal bowel sounds Back/Spine/Pelvis Thoracic/Lumbar Spine: thoracic and lumbar spine normal to inspection Skin General skin exam: no rashes or lesions noted Neuro General: patient oriented x3 and no focal motor deficits Cranial nerves: Yes CN's II-XII intact bilaterally Extrem General: Yes normal to inspection, Yes no clubbing, cyanosis or edema and Yes no calf tenderness Psych Speech and movement: Normal speech and movement present Assessment & Plan Assessment & Plan (1) Allergic alveolitis: Comment: The findings described on CTA of the chest suggest that she gets inflammatory process in the upper lobes, alveolitis/ bronchiolitis. and it is not due to any active bacterial infection. Prednisone 5 mg a day for the 3 weeks seems to have helped, now she is not on prednisone and is at baseline Code(s): J67.9 - Hypersensitivity pneumonitis due to unspecified organic dust Category: Medical Plan: I have ordered a repeat CT scan of the chest, to see if she still has some alveo lar densities in the upper lobe (2) SPARKLE (obstructive sleep apnea): Comment: Patient gives history of diagnosis of SPARKLE, since many years ago. Initial sleep study at [facility] and then following 2 studies at [facility]. After losing significant weight she had stopped using the CPAP, as she did not have any symptoms of SPARKLE. Currently she has gained about. 20 lb of weight but still denies symptoms of SPARKLE. She is being followed at to weight management program of [facility]. Code(s): G47.33 - Obstructive sleep apnea (adult) (pediatric) Category: Medical Plan: Continue to be in the weight management program at [facility] (3) Allergic rhinitis: Comment: This patient does have symptoms of chronic allergic rhinitis. She has been under care of allergy specialists, At present her symptoms are minimal and seem to be better controlled. Code(s): J30.9 - Allergic rhinitis, unspecified Category: Medical Plan: Continue Azelastine 2 spray in each nostril daily Loratadine 10 mg once a day p.r.n. Montelukast 10 mg daily Patient is on Tezspire treatment by allergy specialists. (4) Asthma: Comment: She has Asthma/COPD . Currently it seems to be under control since she has been on biologic treatment with TREZSPIRE . Chest. Is clear Code(s): J45.909 - Unspecified asthma, uncomplicated Category: Medical Plan: Continue Spiriva Respimat 1.25 Mcg/actuation 2 inhalations daily Combivent Respimat 1 inhalation Q 6 hours p.r.n. Advair HFA 230-21 1 puff b.i.d. Albuterol HFA 2 puffs Q 6 hours p.r.n. Orders: Orders CT chest wo IV con Today J67.9 - Hypersensitivity pneumonitis due to unspecified organic dust Coding Level of Care Code Est Pt Level 3 (66286) Diagnoses Allergic alveolitis J67.9 SPARKLE (obstructive sleep apnea) G47.33 Allergic rhinitis J30.9 Asthma J45.909
--- OUTSIDE RECORDS SUMMARY | 2024-08-29 17:38 | XMS_ITS | Data Portability ---
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 On exam, she has pain on flexion and a positive right straight leg raising test. She has trialed physical therapy with no pain benefit. MRI Lumbar spine shows Mild disc herniation and marked degenerative facet arthropathy at L3-4 causing mild flattening of the dural sac, [id number] e right and mild left-sided foraminal stenosis. Mild disc herniation and moderate degenerative facet arthropathy at L4-5 causing mild flattening of the dural sac, moderate left and mild right-sided foraminal stenosis. Moderate degenerative facet arthropathy at L5-S1. She is here for a lumbar epidural steroid injection under fluoroscopic guidance. The risks and benefits of the procedure were reviewed in detail. She wishes to proceed. She will follow up in ten weeks [email or web address] Not available 12/22/2023 15:00:37 03/23/2024 03/23/2024 Codie Fernández is a 53 year old woman with complaints of low back pain radiating into right lower extremity. On exam, she has pain on flexion and a positive right straight leg raising test. She has trialed physical therapy with no pain benefit. MRI Lumbar spine shows Mild disc herniation and marked degenerative facet arthropathy at L3-4 causing mild flattening of the dural sac, [id number] e right and mild left-sided foraminal stenosis. Mild disc herniation and moderate degenerative facet arthropathy at L4-5 causing mild flattening of the dural sac, moderate left and mild right-sided foraminal stenosis. Moderate degenerative facet arthropathy at L5-S1. I recommend a lumbar epidural steroid injection under fluoroscopic guidance. The risks and benefits of the procedure were reviewed in detail. She wishes to proceed. An appointment will be booked after insurance approval. 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 [email or web address] Not available 03/23/2024 16:09:28 04/26/2024 04/26/2024 Codie Fernández is a 53 year old woman with complaints of low back pain radiating into right lower extremity. On exam, she has pain on flexion and a positive right straight leg raising test. She has trialed physical therapy with no pain benefit. MRI Lumbar spine shows Mild disc herniation and marked degenerative facet arthropathy at L3-4 causing mild flattening of the dural sac, [id number] e right and mild left-sided foraminal stenosis. Mild disc herniation and moderate degenerative facet arthropathy at L4-5 causing mild flattening of the dural sac, moderate left and mild right-sided foraminal stenosis. Moderate degenerative facet arthropathy at L5-S1. She is here for a lumbar epidural steroid injection under fluoroscopic guidance. The risks and benefits of the procedure were reviewed in detail. She wishes to proceed. She will follow up in ten weeks [email or web address] Not available 04/26/2024 16:34:56 07/28/2024 07/28/2024 Codie Fernández is a 54 year old woman with complaints of low back pain radiating into right lower extremity. On exam, she has pain on flexion and a positive right straight leg raising test. She has trialed physical therapy with no pain benefit. MRI Lumbar spine shows Mild disc herniation and marked degenerative facet arthropathy at L3-4 causing mild flattening of the dural sac, [id number] e right and mild left-sided foraminal stenosis. Mild disc herniation and moderate degenerative facet arthropathy at L4-5 causing mild flattening of the dural sac, moderate left and mild right-sided foraminal stenosis. Moderate degenerative facet arthropathy at L5-S1. I recommend a lumbar epidural steroid injection under fluoroscopic guidance. The risks and benefits of the procedure were reviewed in detail. She wishes to proceed. An appointment will be booked after insurance approval. 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 [email or web address] Not available 07/28/2024 11:36:10 08/11/2024 08/11/2024 Codie Fernández is a 54 year old woman with complaints of low back pain radiating into right lower extremity. On exam, she has pain on flexion and a positive right straight leg raising test. She has trialed physical therapy with no pain benefit. MRI Lumbar spine shows Mild disc herniation and marked degenerative facet arthropathy at L3-4 causing mild flattening of the dural sac, [id number] e right and mild left-sided foraminal stenosis. Mild disc herniation and moderate degenerative facet arthropathy at L4-5 causing mild flattening of the dural sac, moderate left and mild right-sided foraminal stenosis. Moderate degenerative facet arthropathy at L5-S1. She is here for a lumbar epidural steroid injection under fluoroscopic guidance. The risks and benefits of the procedure were reviewed in detail. She wishes to proceed. She will follow up in ten weeks [email or web address] Not available 08/11/2024 17:00:50 Plan of Treatment Reminders Order Date Submit Date Provider Last Modified By Organization Details Last Modified Time Details Appointments RETURN 2024 11:00A M Carlita paul MD Not available Not available Not available Lab None recorded . Referral None recorded . Procedures None recorded . Surgeries None recorded . Imaging None recorded . Medication Orders None recorded . Patient TargetsNo targets recorded. Patient Instructions Encounter Date Encounter Id Patient Instructions Last Modified By Organization Details Last Modified Time 12/22/2023 [id number] She was advised to continue activities as tolerated. [email or web address] Not available 12/22/2023 15:00:40 04/26/2024 [id number] She was advised to continue activities as tolerated. [email or web address] Not available 04/26/2024 16:35:03 08/11/2024 [id number] She was advised to continue activities as tolerated. [email or web address] Not available 08/11/2024 16:59:30 Reason for Referral None Reported. Problems Name Problem SNOMED Code Status Onset Date Resolution Date Notes Provider Name and Address Organization Details Recorded Time Low back pain 819345903 Active 2015 Carlita paul MD [address] , [address], [place], [address], [place] [facility] 6 15:50:45 Lumbosacral radiculitis 85349080 Active 2017 Carlita paul MD [address] , [address], [place], [address], [place] [facility] 8 10:17:40 Displacement of lumbar intervertebral disc without myelopathy 30279289 Active 2017 Carlita paul MD [address] , [address], [place], [address], [place] [facility] 8 10:17:41 Lumbosacral spondylosis without myelopathy 72781825 Active 2017 Carlita paul MD [address] , [address], [place], [address], [place] [facility] 8 10:17:42 Spinal stenosis of lumbar region 33490924 Active 2017 Carlita paul MD [address] , [address], [place], [address], [place] [facility] 8 10:17:43 Problem Notes None recorded. Procedures Surgical History Date Name Laterality Status Provider Name and Address Organization Details Recorded Time 08/11/20 24 Lumbar Epidural steroid injection under fluoroscopic guidance completed Carlita Aguilar MD [address] , [address], [place], [address], [place] [facility] 08/11/2024 17:00:18 06/07/20 24 total shoulder replacement completed Carlita Aguilar MD [address] , [address], [place], [address], [place] [facility] 07/28/2024 11:09:13 04/26/20 24 Lumbar Epidural steroid injection under fluoroscopic guidance completed Carlita Aguilar MD [address] , [address], [place], [address], [place] [facility] 04/26/2024 16:35:33 12/22/19 24 Lumbar Epidural steroid injection under fluoroscopic guidance completed Carlita Aguilar MD [address] , [address], [place], [address], [place] [facility] 12/22/2023 15:01:08 07/15/20 23 Lumbar Epidural steroid injection under fluoroscopic guidance completed Carlita Aguilar MD [address] , [address], [place], [address], [place] [facility] 07/15/2023 14:07:22 03/25/20 23 Lumbar Epidural steroid injection under fluoroscopic guidance completed Carlita Aguilar MD [address] , [address], [place], [address], [place] [facility] 03/25/2023 10:50:21 12/04/19 23 Lumbar Epidural steroid injection under fluoroscopic guidance completed Carlita Aguilar MD [address] , [address], [place], [address], [place] [facility] 12/03/2022 10:16:53 07/29/20 22 Lumbar Epidural steroid injection under fluoroscopic guidance completed Carlita Aguilar MD [address] , [address], [place], [address], [place] [facility] 07/29/2022 09:04:50 03/11/20 22 Lumbar Epidural steroid injection under fluoroscopic guidance completed Carlita Aguilar MD [address] , [address], [place], [address], [place] [facility] 03/11/2022 14:38:59 09/03/19 22 Radiofrequency of Lumbar/Sacral medial branches supplying the facets under fluoroscopic guidance completed Carlita Aguilar MD [address] , [address], [place], [address], [place] [facility] 09/03/2021 15:52:43 05/29/20 21 Fluoroscopic Guided Lumbar Facet Steroid Injections of levels completed Carlita Aguilar MD [address] , [address], [place], [address], [place] [facility] 05/29/2021 10:20:51 12/13/19 21 Fluoroscopic Guided Lumbar Facet Steroid Injections of levels completed Carlita Aguilar MD [address] , [address], [place], [address], [place] [facility] 12/12/2020 13:57:08 10/03/19 21 Lumbar Epidural steroid injection under fluoroscopic guidance completed Carlita Aguilar MD [address] , [address], [place], [address], [place] [facility] 10/03/2020 10:00:24 07/11/20 20 Lumbar Epidural steroid injection under fluoroscopic guidance completed Carlita Aguilar MD [address] , [address], [place], [address], [place] [facility] 07/11/2020 10:28:54 06/13/20 20 Fluoroscopic Guided Lumbar Facet Steroid Injections of levels completed Carlita Aguilar MD [address] , [address], [place], [address], [place] [facility] 06/13/2020 10:06:27 02/21/20 20 Lumbar Epidural steroid injection under fluoroscopic guidance completed Carlita Aguilar MD [address] , [address], [place], [address], [place] [facility] 02/21/2020 10:32:02 10/26/19 20 Fluoroscopic Guided Lumbar Facet Steroid Injections of levels completed Carlita Aguilar MD [address] , [address], [place], [address], [place] [facility] 10/26/2019 14:00:13 08/31/19 20 Lumbar Epidural steroid injection under fluoroscopic guidance completed Carlita Aguilar MD [address] , [address], [place], [address], [place] [facility] 09/05/2019 11:29:25 06/08/20 19 Fluoroscopic Guided Lumbar Facet Steroid Injections of levels completed Carlita Aguilar MD [address] , [address], [place], [address], [place] [facility] 06/10/2019 14:46:56 05/20/20 19 arthrodesis of foot completed Carlita Aguilar MD [address] , [address], [place], [address], [place] [facility] 06/08/2019 09:51:34 04/13/20 19 Lumbar Epidural steroid injection under fluoroscopic guidance completed Carlita Aguilar MD [address] , [address], [place], [address], [place] [facility] 04/20/2019 16:00:55 01/13/20 19 Lumbar Epidural steroid injection under fluoroscopic guidance completed Carlita Aguilar MD [address] , [address], [place], [address], [place] [facility] 01/12/2019 13:18:20 09/22/19 19 Lumbar Epidural steroid injection under fluoroscopic guidance completed Carlita Aguilar MD [address] , [address], [place], [address], [place] [facility] 09/23/2018 11:32:09 05/18/20 18 Lumbar Epidural steroid injection under fluoroscopic guidance completed Carlita Aguilar MD [address] , [address], [place], [address], [place] [facility] 05/18/2018 16:07:36 11/25/19 18 Lumbar Epidural steroid injection under fluoroscopic guidance completed Carlita Aguilar MD [address] , [address], [place], [address], [place] [facility] 11/24/2017 11:24:09 06/30/20 17 Lumbar Epidural steroid injection under fluoroscopic guidance completed Carlita Aguilar MD [address] , [address], [place], [address], [place] [facility] 07/03/2017 08:59:37 03/10/20 17 Lumbar Epidural steroid injection under fluoroscopic guidance completed Carlita Aguilar MD [address] , [address], [place], [address], [place] [facility] 03/10/2017 14:35:03 11/27/19 17 Lumbar Epidural steroid injection under fluoroscopic guidance completed Carlita Aguilar MD [address] , [address], [place], [address], [place] [facility] 11/26/2016 10:15:50 07/22/20 16 Lumbar Epidural steroid injection under fluoroscopic guidance completed Carlita Aguilar MD [address] , [address], [place], [address], [place] [facility] 07/22/2016 15:04:33 Joint Replacement completed Kerrie Oates [place] [facility] 07/09/2016 14:28:12 Other completed Kerrie Oates [place] [facility] 07/09/2016 14:29:02 Hernia Repair completed Kerrie Oates [place] [facility] 07/09/2016 14:29:39 Other completed Kerrie Oates [place] [facility] 07/09/2016 14:30:26 Hysterectomy completed Kerriebillie Oates [place] [facility] 07/09/2016 14:30:57 Other completed Kerriebillie VelasquezOates [place] [facility] 07/09/2016 14:32:02 Carpal tunnel surgery completed Carlita Aguilar MD [address] , [address], [place], [address], [place] [facility] 06/26/2023 09:11:01 Imaging Results None recorded. Procedure Notes None recorded. Medical Equipment None Reported. Allergies Allergen ID Allergen Name Allergen Category Reaction Reaction Severity Criticality Documentation Date Start Date Code Code System Note Provider Name and Address Organization Details Recorded Time 87960 latex environme nt,medica tion itching rash Not available Not available Not available 09/22/2018 39119 91 RxNorm Kerrie Oatesguera [place], [place] [facility] 9 09:44:39 Medications Name Sig Start Date Stop Date Status Note LastModified by Organization Details LastModified Time d3-1000 1000 unit caps 03/26 completed Not Available Not Available Not Available multi vites gummy vitamins ta TAKE 1 GUMMY BY MOUTH DAILY 02/27 completed Not Available Not Available Not Available d 1000 1000 unit caps 06/30 completed Not Available Not Available Not Available vitamin b-12 1000 mcg subl 03/26 completed Not Available Not Available Not Available celecoxib 200 mg capsule 07/28 completed Not Available Not Available Not Available Santyl 250 unit/gram topical ointment 06/26 completed Not Available Not Available Not Available cyclobenz aprine 10 mg tablet TAKE 1 TABLET BY MOUTH EVERY 8 HOURS NEEDED FOR MUSCLE SPASM 02/27 completed Not Available Not Available Not Available amoxicill in 500 mg capsule TAKE 4 CAPSULES OF AMOXICIL SHARAN 500 MG 1 HOUR PRIOR DENTAL PROCEDUR E active Not Available Not Available No t Available methocarb lori 500 mg tablet 02/20 completed Not Available Not Available Not Available hydrocort isone 0.5 % topical cream APPLY THIN LAYER TO AFFECTED SKIN. USE TWICE DAILY NEEDED FOR ITCHING. active Not Available Not Available No t Available azelastin e 0.05 % eye drops INSTILL 1 DROP INTO BOTH EYES 2 TIMES DAILY. 09/22 completed Not Available Not Available Not Available nystatin 100,000 unit/mL oral suspensio n 02/20 completed Not Available Not Available Not Available acetamino phen 325 mg tablet TAKE 2 TABLETS BY MOUTH EVERY 6 HOURS NEEDED FOR MILD PAIN (LIMIT 4000MG OF TYLENOL/ APAP/COLLEEN TAMINOPH EN PER DAY) 06/02 completed Not Available Not Available Not Available prednison e 10 mg tablet PLEASE SEE ATTACHED FOR DETAILED DIRECTIO NS active Not Available Not Available No t Available doxycycli ne hyclate 100 mg capsule 11/26 completed Not Available Not Available Not Available cefuroxim e axetil 250 mg tablet TAKE 2 TABLET BY MOUTH TWICE A DAY X10 DAYS 07/28 completed Not Available Not Available Not Available ipratropi um 0.5 mg-albute rol 3 mg (2.5 mg base)/3 mL nebulizat ion soln 06/26 completed Treats asthma, Chronic Bronchit is and Emphysem a Not Available Not Available Not Available albuterol sulfate 2.5 mg/3 mL (0.083 %) solution for nebulizat ion active Beta 2 agonist Not Available Not Available Not Available azithromy isra 250 mg tablet TAKE 2 TABLETS BY MOUTH TODAY, THEN TAKE 1 TABLET DAILY FOR 4 DAYS DIRECTED 07/28 completed Not Available Not Available Not Available ibuprofen 800 mg tablet TAKE 1 TABLET BY MOUTH EVERY 8 HOURS NEEDED FOR PAIN FOR UP TO 30 DAYS. active Not Available Not Available No t Available tizanidin e 4 mg tablet Take 1 tablet every 8 hours by oral route. 09/22 completed Not Available Not Available Not Available ketotifen 0.025 % (0.035 %) eye drops INSTILL 1 DROP TWICE A DAY BY OPHTHALM IC ROUTE NEEDED. active Not Available Not Available No t Available ranitidin e 300 mg tablet 02/19 completed Zantac. Antihist amine and Antacid Not Available Not Available Not Available fluconazo le 200 mg tablet 06/30 completed Not Available Not Available Not Available meloxicam 15 mg tablet 10/16 completed Not Available Not Available Not Available naltrexon e 50 mg tablet TAKE 1 TABLET BY MOUTH EVERY DAY active Not Available Not Available No t Available FreeStyle Lancets 28 gauge USE TO CHECK BLOOD SUGAR ONCE DAILY active Not Available Not Available No t Available metronida zole 0.75 % (37.5 mg/5 gram) vaginal gel 06/30 completed Not Available Not Available Not Available ondansetr on HCl 4 mg tablet TAKE 1 TABLET BY MOUTH EVERY 8 HOURS NEEDED FOR NAUSEA AND VOMITING FOR 7 DAYS active Not Available Not Available No t Available prednison e 20 mg tablet TAKE 3 TABLETS DAILY X3 DAYS, THEN 2 TABLETS DAILY X3 DAYS, THEN 1 TABLET DAILY X3 DAYS 07/28 completed Not Available Not Available Not Available prednison e 5 mg tablet TAKE 1 TABLET BY MOUTH EVERY DAY FOR ALVEOLIT IS FOR 30 DAYS 07/28 completed Not Available Not Available Not Available methylpre dnisolone 4 mg tablet TAKE 6 TABLETS ON DAY 1 DIRECTED ON PACKAGE AND DECREASE BY 1 TAB EACH DAY FOR A TOTAL OF 6 DAYS 05/29 completed Not Available Not Available Not Available clobetaso l 0.05 % topical cream APPLY A THIN LAYER TO THE AFFECTED AREA(S) BY TOPICAL ROUTE 2 TIMES PER DAY 03/26 completed Not Available Not Available Not Available permethri n 5 % topical cream active Not Available Not Available Not Available metronida zole 500 mg tablet 06/30 completed Not Available Not Available Not Available sulfameth oxazole 800 mg-trimet hoprim 160 mg tablet 09/22 completed Not Available Not Available Not Available omeprazol e 40 mg capsule,d elayed release TAKE 1 CAPSULE BY MOUTH EVERY DAY active Not Available Not Available No t Available aspirin 81 mg tablet,de layed release 07/28 completed Not Available Not Available Not Available tramadol 50 mg tablet TAKE 1 TABLET BY MOUTH EVERY 4 HOURS NEEDED 06/28 completed Not Available Not Available Not Available acetamino phen 500 mg tablet TAKE 2 TABLETS BY MOUTH EVERY 8 HOURS NEEDED FOR PAIN FOR 15 DAYS active Not Available Not Available No t Available triamcino lone acetonide 0.1 % topical cream active Not Available Not Available Not Available amoxicill in 500 mg tablet TAKE 4 TABLETS BY MOUTH 1 HOUR BEFORE APPOINTM ENT 03/25 completed Not Available Not Available Not Available theophyll ine ER 300 mg tablet,ex tended release,1 2 hr TAKE 1 TAB BY MOUTH 3 TIMES DAILY. 02/20 completed Not Available Not Available Not Available acetamino phen ER 650 mg tablet,ex tended release TAKE 1 TAB BY MOUTH EVERY 8 HOURS IF NEEDED FOR MODERATE PAIN X 10 DAYS DO NOT CRUSH CHEW OR SPLIT 06/26 completed Not Available Not Available Not Available oxycodone -acetamin ophen 5 mg-325 mg tablet 06/30 completed Not Available Not Available Not Available aspirin 325 mg tablet,de layed release TAKE 1 TABLET BY MOUTH EVERY DAY 03/23 completed Not Available Not Available Not Available hydrocort isone valerate 0.2 % topical ointment APPLY TO AREA 1-2 TIMES A DAY FOR ONE TO TWO WEEKS ONLY 06/26 completed Not Available Not Available Not Available benzonata te 100 mg capsule TAKE 1 CAPSULE BY MOUTH TWICE A DAY NEEDED FOR COUGH 07/28 completed Not Available Not Available Not Available cephalexi n 500 mg capsule 07/22 completed Not Available Not Available Not Available Gas Relief (simethic one) 80 mg chewable tablet 02/20 completed Not Available Not Available Not Available nitrofura ntoin macrocrys katie 100 mg capsule TAKE 1 CAPSULE BY MOUTH EVERY 12 HOURS FOR 7 DAYS WITH A MEAL OR FOOD 10/23 completed antibiot ic that treats bladder infectio ns. Not Available Not Available Not Available nystatin 100,000 unit/gram topical cream 06/26 completed Not Available Not Available Not Available clotrimaz ole-betam ethasone 1 %-0.05 % topical cream APPLY SPARINGL Y TO EXTERNAL AFFECTED AREA 2 TIMES DAILY FOR 7-10 DAYS. active Not Available Not Available No t Available triamcino lone acetonide 55 mcg nasal spray aerosol SPRAY 2 SPRAYS IN EACH NOSTRIL ONCE DAILY NEEDED FOR ALLERGIE S 10/23 completed Not Available Not Available Not Available lidocaine 5 % topical patch APPLY 1 PATCH TOPICALL Y DAILY LEAVE ON MOST PAINFUL AREA FOR UP TO 12 HRS 07/28 completed Not Available Not Available Not Available betametha sone dipropion ate 0.05 % topical cream APPLY TO AFFECTED AREA EVERY DAY NEEDED NO LONGER THAN 2 TO 3 WEEKS,TH EN ONLY ON THURSDAY AND SUN active Not Available Not Available No t Available gabapenti n 300 mg capsule 08/01 completed Not Available Not Available Not Available omeprazol e 20 mg capsule,d elayed release -09/04-TA KE 1 CAP BY MOUTH DAILY. 05/29 completed Not Available Not Available Not Available diclofena c sodium 75 mg tablet,de layed release 06/30 completed Not Available Not Available Not Available folic acid 1 mg tablet TAKE 1 TABLET BY MOUTH EVERY DAY active Not Available Not Available No t Available monteluka st 10 mg tablet TAKE 1 TABLET BY MOUTH AT BEDTIME FOR 360 DAYS. active Not Available Not Available No t Available hydroxyzi ne HCl 25 mg tablet TAKE 1 TABLET BY MOUTH EVERY 8 HOURS NEEDED FOR ITCHING active Not Available Not Available No t Available codeine 10 mg-guaife nesin 100 mg/5 mL oral liquid TAKE 5 ML BY MOUTH 3 TIMES DAILY NEEDED FOR COUGH FOR UP TO 10 DAYS 10/01 completed Not Available Not Available Not Available bisacodyl 5 mg tablet,de layed release 02/20 completed Not Available Not Available Not Available cyanocoba kim (vit B-12) 1,000 mcg sublingua l tablet TAKE 1 TABLET BY MOUTH EVERY DAY BY SUBLINGU AL ROUTE 09/22 completed Not Available Not Available Not Available mupirocin 2 % topical ointment APPLY A SMALL AMOUNT TO THE AFFECTED AREA BY TOPICAL ROUTE 3 TIMES PER DAY 06/26 completed Not Available Not Available Not Available diclofena c sodium 50 mg tablet,de layed release 06/30 completed Not Available Not Available Not Available azelastin e 137 mcg (0.1 %) nasal spray INSTILL 2 SPRAYS IN EACH NOSTRIL TWICE A DAY active Not Available Not Available No t Available epinephri ne 0.3 mg/0.3 mL injection , auto-inje ctor USE DIRECTED FOR ANAPHYLA XIS , CALL 911 AFTER USE active Not Available Not Available No t Available triamcino lone acetonide 0.1 % lotion APPLY A THIN LAYER TO THE AFFECTED AREA(S) BY TOPICAL ROUTE 2 TIMES PER DAY 02/27 completed Not Available Not Available Not Available ibuprofen 600 mg tablet TAKE 1 TABLET BY MOUTH 3 TIMES DAILY (WITH MEALS) FOR 7 DAYS. 06/26 completed Not Available Not Available Not Available levofloxa isra 500 mg tablet 06/30 completed Not Available Not Available Not Available ketoconaz ole 2 % topical cream 03/26 completed Not Available Not Available Not Available theophyll ine ER 300 mg capsule,e xtended release 24 hr Take 1 capsule every day by oral route. 11/02 completed Not Available Not Available Not Available ondansetr on 4 mg disintegr ating tablet DISSOLVE 1 TABLET ON THE TONGUE EVERY 6 HOURS NEEDED FOR NAUSEA AND VOMITING 05/29 completed Not Available Not Available Not Available cefdinir 300 mg capsule 05/18 completed Not Available Not Available Not Available fluticaso ne propionat e 50 mcg/actua tion nasal spray,navid pension SPRAY 1 SPRAY BY NASAL ROUTE DAILY. 06/26 completed Flonase Not Available Not Available Not Available clotrimaz ole 1 % topical cream APPLY TO THE AFFECTED AND SURROUND ING AREAS OF SKIN BY TOPICAL ROUTE 2 TIMES PER DAY IN THE MORNING AND EVENING 03/26 completed Not Available Not Available Not Available doxycycli ne hyclate 100 mg tablet TAKE 1 TABLET BY MOUTH TWICE A DAY X10 DAYS 07/28 completed Not Available Not Available Not Available loratadin e 10 mg tablet TAKE 1 TABLET BY MOUTH EVERY DAY active Not Available Not Available No t Available ipratropi um bromide 0.02 % solution for inhalatio n INHALE 2.5 ML INHALED 4 TIMES A DAY NEEDED FOR FOR WHEEZING active Not Available Not Available No t Available oxycodone 5 mg tablet TAKE 1 TO 2 TABLETS BY MOUTH EVERY 4 TO 6 HOURS NEEDED FOR PAIN 07/28 completed Not Available Not Available Not Available neomycin 3.5 mg/g-poly myxin B 10,000 unit/g-de xameth 0.1 % eye oint APPLY 1/4 INCH STRIP TO BOTH EYES THREE TO FOUR TIMES A DAY AFTER HOT PACK AND MASSAGE 08/01 completed Not Available Not Available Not Available Denta 5000 Plus 1.1 % cream APPLY A PEA SIZE AMOUNT ON TOOTHBRU SH, BRUSH TEETH THREE TIMES A DAY active Not Available Not Available No t Available calcium 200 mg (as calcium citrate 950 mg) tablet TAKE 1 TABLET BY MOUTH EVERY DAY active Not Available Not Available No t Available DuoNeb 2.5 mg-0.5 mg/3 mL solution for nebulizat ion Inhale 3 mL 4 times a day by nebuliza tion route. active Not Available Not Available No t Available Vitamin D3 25 mcg (1,000 unit) capsule TAKE 1 CAPSULE BY MOUTH EVERY DAY active Not Available Not Available No t Available cyclobenz aprine 5 mg tablet 02/27 completed Not Available Not Available Not Available Stool Softener- Laxative 8.6 mg-50 mg tablet active Not Available Not Available No t Available bupropion HCl XL 300 mg 24 hr tablet, extended release TAKE 1 TABLET BY MOUTH EVERY MORNING FOR 180 DAYS. active Not Available Not Available No t Available bupropion HCl XL 150 mg 24 hr tablet, extended release TAKE 1 TABLET BY MOUTH EVERY MORNING 07/28 completed Not Available Not Available Not Available Spiriva with HandiHale r 18 mcg and inhalatio n capsules 03/26 completed Not Available Not Available Not Available nitrofura ntoin monohydra te/macroc rystals 100 mg capsule 08/01 completed Not Available Not Available Not Available chlorhexi dine gluconate 0.12 % mouthwash PLEASE SEE ATTACHED FOR DETAILED DIRECTIO NS active Not Available Not Available No t Available ProAir HFA 90 mcg/actua tion aerosol inhaler INHALE 2 PUFFS EVERY 4 HOURS NEEDED 02/20 completed Not Available Not Available Not Available Advair HFA 230 mcg-21 mcg/actua tion aerosol inhaler TAKE 1 PUFF BY MOUTH TWICE A DAY active Not Available Not Available No t Available cholecalc iferol (vitamin D3) 25 mcg (1,000 unit) tablet TAKE 1 TABLET BY MOUTH EVERY DAY active Not Available Not Available No t Available Symbicort 160 mcg-4.5 mcg/actua tion HFA aerosol inhaler INHALE 2 PUFFS TWICE A DAY 09/22 completed Not Available Not Available Not Available FreeStyle Lite Meter kit USE TO CHECK BLOOD SUGAR ONCE DAILY active Not Available Not Available No t Available FreeStyle Lite Strips USE TO CHECK BLOOD SUGAR ONCE DAILY active Not Available Not Available No t Available budesonid e 1 mg/2 mL suspensio n for nebulizat ion Inhale 2 mL every day by nebuliza tion route. 03/25 completed When inhaled treats Asthma. Can also treat Ulcerati ve Colitis and Chron's Disease Not Available Not Available Not Available diclofena c 1 % topical gel APPLY 5 G TOPICALL Y 5 TIMES DAILY. 02/27 completed Not Available Not Available Not Available Gavilax 17 gram/dose oral powder 08/01 completed Not Available Not Available Not Available loratadin e 10 mg capsule Take by oral route. 11/02 completed Not Available Not Available Not Available Combivent Respimat 20 mcg-100 mcg/actua tion solution for inhalatio n INHALE 1 PUFF BY MOUTH 4 TIMES A DAY FOR COPD active Not Available Not Available No t Available Eliquis 5 mg tablet TAKE 1 TABLET BY MOUTH TWICE A DAY 03/19 completed Not Available Not Available Not Available Breo Ellipta 100 mcg-25 mcg/dose powder for inhalatio n 10/01 completed Not Available Not Available Not Available ProAir RespiClic k 90 mcg/actua tion breath activated active Not Available Not Available No t Available Breo Ellipta 200 mcg-25 mcg/dose powder for inhalatio n INHALE 1 PUFF INTO THE LUNGS DAILY. 03/25 completed Long acting Beta 2 Agonist. Treats COPD and Asthma Not Available Not Available Not Available Spiriva Respimat 1.25 mcg/actua tion solution for inhalatio n INHALE 2 PUFFS BY MOUTH EVERY DAY active Not Available Not Available No t Available fluticaso ne 232 mcg-salme terol 14 mcg/actua tion breath activated powdr 10/23 completed Flonase Not Available Not Available Not Available Shingrix (PF) 50 mcg/0.5 mL intramusc ular suspensio n, kit PHARMACY ADMINIST ERED 05/29 completed Not Available Not Available Not Available Fasenra 30 mg/mL subcutane ous syringe 03/26 completed Not Available Not Available Not Available Eliquis DVT-PE Treatment 30-Day Starter 5 mg (74 tablets) in dose pack USE DIRECTED ON PACKAGE LABELING 10/23 completed Anticoag ulant Not Available Not Available Not Available Nucala 100 mg/mL subcutane ous auto-inje ctor 10/23 completed Treats Severe Eosipoph lic Asthma Not Available Not Available Not Available Fluzone Quad (PF) 60 mcg (15 mcg x 4)/0.5 mL IM syringe TO BE ADMINIST ERED BY PHARMACI ST FOR IMMUNIZA TION 03/26 completed Not Available Not Available Not Available Fluzone Quad (PF) 60 mcg (15 mcg x 4)/0.5 mL IM syringe PHARMACY ADMINIST ERED 10/01 completed Not Available Not Available Not Available Flowflex COVID-19 Antigen Home Test kit USE DIRECTED active Not Available Not Available No t Available Tezspire 210 mg/1.91 mL (110 mg/mL) subcutane ous syringe active Not Available Not Available Not Available Vitals Date Recorded Body height Heart rate Oxygen saturation Oxygen saturation in Arterial blood by Pulse oximetry Systolic blood pressure Diastolic blood pressure Provider Name and Address Organization Details Last Updated DateTime 4 154.94 cm 78 /min 96 % 96 % 139 mm[Hg] 80 mm[Hg] Almita Black [facility] - [facility] 4 14:39:27 Date Recorded Body height Heart rate Oxygen saturation Oxygen saturation in Arterial blood by Pulse oximetry Body mass index (BMI) Body weight Systolic blood pressure Diastolic blood pressure Provider Name and Address Organization Details Last Updated DateTime 4 154.94 cm 67 /min 98 % 98 % 35.1 kg/m2 97773.1 8 g 114 mm[Hg] 68 mm[Hg] Susan Wright MA - [facility] 4 14:49:38 Date Recorded Body height Heart rate Oxygen saturation Oxygen saturation in Arterial blood by Pulse oximetry Systolic blood pressure Diastolic blood pressure Provider Name and Address Organization Details Last Updated DateTime 4 154.94 cm 73 /min 96 % 96 % 118 mm[Hg] 67 mm[Hg] Almita Black MA - [facility] 4 11:23:25 Date Recorded Body height Body mass index (BMI) Body weight Heart rate Oxygen saturation Oxygen saturation in Arterial blood by Pulse oximetry Systolic blood pressure Diastolic blood pressure Provider Name and Address Organization Details Last Updated DateTime 4 154.94 cm 32.7 kg/m2 79427.4 8 g 69 /min 98 % 98 % 144 mm[Hg] 69 mm[Hg] Carlita paul MD [address] [facility] , [address], [facility] [place], [address], [place] - [facility] 4 11:02:55 Date Recorded Body height Heart rate Oxygen saturation Oxygen saturation in Arterial blood by Pulse oximetry Systolic blood pressure Diastolic blood pressure Provider Name and Address Organization Details Last Updated DateTime 4 154.94 cm 68 /min 98 % 98 % 132 mm[Hg] 73 mm[Hg] Denita hernandez MA - [facility] 4 11:07:24 Social History Question Answer Notes LastModified by Organizat ion Details LastModified Time Tobacco Smoking Status Never Smoker Not Available [facility] 06/08/2020 03:16:12 What Is Your Level Of Alcohol Consumption? None [id number] Information not available 06/08/2020 Are You Currently Employed? No [id number] Information not available 06/08/2020 Which Illicit Or Recreational Drugs Have You Used? No [id number] Information not available 06/08/2020 Education 8 Information no t available 07/09/2016 Live Alone Or With Others? With Others And 3 Children Information not available 07/09/2016 Marital Status Informatio n not available 07/09/2016 What Was The Date Of Your Most Recent Tobacco Screening? 01/12/2019 [id number] Information not available 06/08/2020 Sex: Unknown Functional Status None recorded. Mental Status None recorded. Family History Relationship Description Onset Age of this Age Resolved Age Notes LastModified by Organization Details LastModified Time Mother Cerebrovascu lar [facility] 87 [facility] Not available 02/27/2022 14:47:26 Medical History Condition Response Arthritis Y Asthma Y Gynecological HistoryNo gynecological history recorded. Obstetrics History GPAL:G 0 P 0 0 0 0 Past Encounters Encounter ID Performer Location Encounter Start Date Encounter Closed Date Diagnosis/Indication Diagnosis SNOMED-CT Code Diagnosis ICD10 Code Diagnosis Note [id number] Carlita Aguilar MD PAIN OFFICE [address] [place] [address] 07/09/2016 13:59:18 07/13/2016 19:15:18 Lumbosacral radiculitis 62361519 M54.17 Displaceme nt of lumbar intervertebral disc without myelopathy 67093889 M51.26 Lumbosacra l spondylosis without myelopathy 14584554 M47.817 Spinal kj nosis of lumbar region 41755382 M48.06 [id number] Carlita Aguilar MD PAIN OFFICE [address] [place] [address] 07/22/2016 14:36:09 07/23/2016 08:49:04 Lumbosacral radiculitis 16505277 M54.17 Spinal kj nosis of lumbar region 07735805 M48.06 Lumbosacra l spondylosis without myelopathy 66939201 M47.817 Displaceme nt of lumbar intervertebral disc without myelopathy 88731064 M51.26 [id number] Carlita Aguilar MD PAIN OFFICE [address] [place] [address] 08/21/2016 09:37:12 08/21/2016 11:16:14 Lumbosacral radiculitis 93216446 M54.17 Displaceme nt of lumbar intervertebral disc without myelopathy 80397684 M51.26 Lumbosacra l spondylosis without myelopathy 60434070 M47.817 Spinal kj nosis of lumbar region 44035225 M48.06 [id number] Carlita Aguilar MD PAIN OFFICE [address] [place] [address] 11/26/2016 09:05:49 11/26/2016 10:32:43 Lumbosacral radiculitis 43409874 M54.17 Displaceme nt of lumbar intervertebral disc without myelopathy 05592486 M51.26 Lumbosacra l spondylosis without myelopathy 64688748 M47.817 Spinal kj nosis of lumbar region 61317439 M48.06 [id number] Carlita Aguilar MD [facility] [address] [facility] [place] [address] 03/10/2017 13:13:41 03/11/2017 09:11:35 Lumbosacral radiculitis 36355980 M54.17 Displaceme nt of lumbar intervertebral disc without myelopathy 86109772 M51.26 Lumbosacra l spondylosis without myelopathy 81417328 M47.817 Spinal kj nosis of lumbar region 56774681 M48.06 [id number] Carlita Aguilar MD PAIN OFFICE [address] [facility] [place] [address] 06/30/2017 14:07:57 07/03/2017 09:19:34 Lumbosacral radiculitis 86672695 M54.17 Displaceme nt of lumbar intervertebral disc without myelopathy 56972047 M51.26 Lumbosacra l spondylosis without myelopathy 72182252 M47.817 Spinal kj nosis of lumbar region 98197016 M48.062 [id number] Carlita Aguilar MD PAIN OFFICE [address] [place] [address] 11/02/2017 09:59:08 11/02/2017 10:18:49 Lumbosacral radiculitis 60341874 M54.17 Displaceme nt of lumbar intervertebral disc without myelopathy 70818131 M51.26 Lumbosacra l spondylosis without myelopathy 21802695 M47.817 Spinal kj nosis of lumbar region 73225777 M48.062 [id number] Carlita Aguilar MD [facility] [address] [place] [address] 11/24/2017 10:57:35 11/24/2017 14:35:43 Lumbosacral radiculitis 72900913 M54.17 Displaceme nt of lumbar intervertebral disc without myelopathy 66768158 M51.26 Lumbosacra l spondylosis without myelopathy 98052130 M47.817 Spinal kj nosis of lumbar region 86580986 M48.062 [id number] Carlita Aguilar MD [facility] [address] [place] [address] 05/18/2018 09:59:30 05/18/2018 16:10:36 Lumbosacral radiculitis 38019564 M54.17 Displaceme nt of lumbar intervertebral disc without myelopathy 17378053 M51.26 Lumbosacra l spondylosis without myelopathy 32440272 M47.817 Spinal kj nosis of lumbar region 88944135 M48.062 [id number] Carlita Aguilar MD PAIN OFFICE [address] [facility] [place] [address] 09/22/2018 09:38:48 09/23/2018 11:34:42 Lumbosacral radiculitis 03285317 M54.17 Displaceme nt of lumbar intervertebral disc without myelopathy 20020530 M5. Lumbosacra l spondylosis without myelopathy 14578479 M47.817 Spinal kj nosis of lumbar region 80811018 M48.062 [id number] Carlita Aguilar MD PAIN OFFICE [address] [place] [address] 01/12/2019 11:04:15 01/12/2019 13:20:35 Lumbosacral radiculitis 84087861 M54.17 Displaceme nt of lumbar intervertebral disc without myelopathy 20020530 M5.26 Lumbosacra l spondylosis without myelopathy 59268812 M47.817 Spinal kj nosis of lumbar region 16774418 M48.062 [id number] Carlita Aguilar MD PAIN OFFICE [address] [facility] [place] [address] 02/11/2019 08:47:12 02/28/2019 13:23:31 Lumbosacral radiculitis 06711116 M54.17 Displaceme nt of lumbar intervertebral disc without myelopathy 79211093 M5. Lumbosacra l spondylosis without myelopathy 21230984 M47.817 Spinal kj nosis of lumbar region 55945320 M48.062 [id number] Carlita Aguilar MD PAIN OFFICE [address] [facility] [place] [address] 04/13/2019 09:43:44 04/20/2019 16:03:11 Lumbosacral radiculitis 69458357 M54.17 Displaceme nt of lumbar intervertebral disc without myelopathy 28414910 M51.26 Lumbosacra l spondylosis without myelopathy 76573344 M47.817 Spinal kj nosis of lumbar region 31099664 M48.062 [id number] Carlita Aguilar MD PAIN OFFICE [address] [place] [address] 06/08/2019 09:39:51 06/10/2019 14:50:31 Lumbosacral radiculitis 57991488 M54.17 Displaceme nt of lumbar intervertebral disc without myelopathy 20020530 M51. Lumbosacra l spondylosis without myelopathy 21547158 M47.817 Spinal kj nosis of lumbar region 06872522 M48.062 [id number] Carlita Aguilar MD PAIN OFFICE [address] [place] [address] 08/01/2019 09:43:56 08/05/2019 14:50:16 Lumbosacral radiculitis 08424184 M54.17 Displaceme nt of lumbar intervertebral disc without myelopathy 99172349 M51.26 Lumbosacra l spondylosis without myelopathy 75491369 M47.817 Spinal kj nosis of lumbar region 82076969 M48.062 [id number] Carlita Aguilar MD PAIN OFFICE [address] [place] [address] 08/31/2019 09:15:58 09/05/2019 11:31:14 Lumbosacral radiculitis 80287455 M54.17 Displaceme nt of lumbar intervertebral disc without myelopathy 59840951 M51.26 Lumbosacra l spondylosis without myelopathy 97759224 M47.817 Spinal kj nosis of lumbar region 17090506 M48.062 [id number] Carlita Aguilar MD PAIN OFFICE [address] [place] [address] 10/26/2019 10:33:53 10/26/2019 14:04:23 Lumbosacral radiculitis 99580217 M54.17 Displaceme nt of lumbar intervertebral disc without myelopathy 87687287 M51.26 Lumbosacra l spondylosis without myelopathy 33054786 M47.817 Spinal kj nosis of lumbar region 66611069 M48.062 [id number] Carlita Aguilar MD PAIN OFFICE [address] [place] [address] 02/21/2020 10:01:36 02/21/2020 10:34:34 Lumbosacral radiculitis 00860098 M54.17 Displaceme nt of lumbar intervertebral disc without myelopathy 23085311 M51. Lumbosacra l spondylosis without myelopathy 12611090 M47.817 Spinal kj nosis of lumbar region 06958162 M48.062 [id number] Carlita Aguilar MD PAIN OFFICE [address] [place] [address] 03/26/2020 13:30:06 03/27/2020 14:14:35 Lumbosacral radiculitis 03350332 M54.17 Displaceme nt of lumbar intervertebral disc without myelopathy 20020530 M51. Lumbosacra l spondylosis without myelopathy 94357570 M47.817 Spinal kj nosis of lumbar region 71329436 M48.062 [id number] Carlita Aguilar MD PAIN OFFICE [address] [place] [address] 05/09/2020 09:32:27 05/09/2020 15:34:23 Lumbosacral radiculitis 71507850 M54.17 Displaceme nt of lumbar intervertebral disc without myelopathy 200205301. Lumbosacra l spondylosis without myelopathy 19272923 M47.817 Spinal kj nosis of lumbar region 09455350 M48.062 [id number] Carlita Aguilar MD PAIN OFFICE [address] [place] [address] 06/13/2020 09:38:23 06/13/2020 10:36:59 Lumbosacral radiculitis 10459951 M54.17 Displaceme nt of lumbar intervertebral disc without myelopathy 78575963 M51.26 Lumbosacra l spondylosis without myelopathy 28778158 M47.817 Spinal kj nosis of lumbar region 48547258 M48.062 [id number] Carlita Aguilar MD [facility] [address] [place] [address] 07/11/2020 09:09:30 07/11/2020 10:56:32 Lumbosacral radiculitis 39134530 M54.17 Displaceme nt of lumbar intervertebral disc without myelopathy 75878598 M51.26 Lumbosacra l spondylosis without myelopathy 22689592 M47.817 Spinal kj nosis of lumbar region 33998742 M48.062 [id number] Carlita Aguilar MD PAIN OFFICE [address] [place] [address] 10/01/2020 15:36:47 10/01/2020 15:48:00 Displacement of lumbar intervertebral disc without myelopathy 58867704 M51.26 Lumbosacra l radiculitis 47713891 M54.17 [id number] Carlita Aguilar MD PAIN OFFICE [address] [place] [address] 10/03/2020 09:31:03 10/03/2020 10:06:13 Lumbosacral radiculitis 25411754 M54.17 Displaceme nt of lumbar intervertebral disc without myelopathy 42337954 M51.26 Lumbosacra l spondylosis without myelopathy 72473411 M47.817 Spinal kj nosis of lumbar region 68373671 M48.062 [id number] Carlita Aguilar MD [facility] [address] [place] [address] 11/22/2020 10:56:55 11/23/2020 10:04:47 Lumbosacral radiculitis 55027833 M54.17 Displaceme nt of lumbar intervertebral disc without myelopathy 38317089 M51.26 Lumbosacra l spondylosis without myelopathy 02029477 M47.817 Spinal kj nosis of lumbar region 22689386 M48.062 [id number] Carlita Aguilar MD [facility] [address] [place] [address] 12/12/2020 13:06:16 12/12/2020 16:02:14 Lumbosacral radiculitis 76862685 M54.17 Displaceme nt of lumbar intervertebral disc without myelopathy 00929361 M51.26 Lumbosacra l spondylosis without myelopathy 29461404 M47.817 Spinal kj nosis of lumbar region 22780913 M48.062 [id number] Carlita Aguilar MD [facility] [address] [facility] [place] [address] 01/09/2021 14:00:49 01/09/2021 14:07:36 Lumbosacral radiculitis 58285340 M54.17 Displaceme nt of lumbar intervertebral disc without myelopathy 12325565 M51.26 Lumbosacra l spondylosis without myelopathy 34893641 M47.817 Spinal kj nosis of lumbar region 38591009 M48.062 [id number] Carlita Aguilar MD PAIN OFFICE [address] [facility] [place] [address] 05/29/2021 09:55:12 05/29/2021 10:26:38 Lumbosacral radiculitis 66000494 M54.17 Displaceme nt of lumbar intervertebral disc without myelopathy 00454216 M51.26 Lumbosacra l spondylosis without myelopathy 19924044 M47.817 Spinal kj nosis of lumbar region 74016531 M48.062 [id number] Carlita Aguilar MD [facility] [address] [facility] [place] [address] 06/28/2021 09:03:36 06/28/2021 09:25:12 Lumbosacral radiculitis 55884026 M54.17 Displaceme nt of lumbar intervertebral disc without myelopathy 20761382 M51.26 Lumbosacra l spondylosis without myelopathy 44575720 M47.817 Spinal kj nosis of lumbar region 60584598 M48.062 [id number] Carlita Aguilar MD PAIN OFFICE [address] [facility] [place] [address] 09/03/2021 13:12:29 09/03/2021 16:09:38 Lumbosacral radiculitis 85741846 M54.17 Displaceme nt of lumbar intervertebral disc without myelopathy 23636761 M51.26 Lumbosacra l spondylosis without myelopathy 94322102 M47.817 Spinal kj nosis of lumbar region 64487502 M48.062 [id number] Carlita Aguilar MD PAIN OFFICE [address] [facility] [place] [address] 10/07/2021 09:03:04 10/07/2021 09:22:08 Lumbosacral radiculitis 75407509 M54.17 Displaceme nt of lumbar intervertebral disc without myelopathy 20020530. Lumbosacra l spondylosis without myelopathy 94810999 M47.817 Spinal kj nosis of lumbar region 11781336 M48.062 [id number] Carlita Aguilar MD PAIN OFFICE [address] [place] [address] 02/27/2022 14:14:40 02/27/2022 15:01:06 Lumbosacral radiculitis 54487746 M54.17 Displaceme nt of lumbar intervertebral disc without myelopathy 20020530. Lumbosacra l spondylosis without myelopathy 14598549 M47.817 Spinal kj nosis of lumbar region 79559639 M48.062 [id number] Carlita Aguilar MD PAIN OFFICE [address] [facility] [place] [address] 03/11/2022 14:10:41 03/11/2022 14:44:15 Lumbosacral radiculitis 96216056 M54.17 Displaceme nt of lumbar intervertebral disc without myelopathy 20020530 M5. Lumbosacra l spondylosis without myelopathy 54024085 M47.817 Spinal kj nosis of lumbar region 64335836 M48.062 [id number] Carlita Aguilar MD PAIN OFFICE [address] [facility] [place] [address] 06/02/2022 14:36:35 06/02/2022 15:13:52 Lumbosacral radiculitis 45588454 M54.17 Displaceme nt of lumbar intervertebral disc without myelopathy 48547700 M51.26 Lumbosacra l spondylosis without myelopathy 19906982 M47.817 Spinal kj nosis of lumbar region 10040590 M48.062 [id number] Carlita Aguilar MD PAIN OFFICE [address] [facility] [place] [address] 07/01/2022 10:50:13 07/01/2022 14:03:13 Lumbosacral radiculitis 40652522 M54.17 Displaceme nt of lumbar intervertebral disc without myelopathy 59770906 M51.26 Lumbosacra l spondylosis without myelopathy 20827453 M47.817 Spinal kj nosis of lumbar region 23096886 M48.062 [id number] Carlita Aguilar MD PAIN OFFICE [address] [place] [address] 07/29/2022 08:27:40 07/29/2022 09:10:29 Lumbosacral radiculitis 21864396 M54.17 Displaceme nt of lumbar intervertebral disc without myelopathy 47696400 M51.26 Lumbosacra l spondylosis without myelopathy 66833665 M47.817 Spinal kj nosis of lumbar region 40051150 M48.062 [id number] Carlita Aguilar MD PAIN OFFICE [address] [place] [address] 10/23/2022 08:32:02 10/23/2022 11:04:01 Lumbosacral radiculitis 54817850 M54.17 Displaceme nt of lumbar intervertebral disc without myelopathy 41931229 M51.26 Lumbosacra l spondylosis without myelopathy 78507510 M47.817 Spinal kj nosis of lumbar region 92638897 M48.062 [id number] Carlita Aguilar MD PAIN OFFICE [address] [place] [address] 12/03/2022 08:53:57 12/03/2022 10:54:32 Lumbosacral radiculitis 73924978 M54.17 Displaceme nt of lumbar intervertebral disc without myelopathy 84751314 M51.26 Lumbosacra l spondylosis without myelopathy 42323149 M47.817 Spinal kj nosis of lumbar region 71252076 M48.062 [id number] Carlita Aguilar MD PAIN OFFICE [address] [place] [address] 02/19/2023 09:18:24 02/19/2023 10:31:40 Spinal stenosis of lumbar region 19337705 M48.062 Displaceme nt of lumbar intervertebral disc without myelopathy 72616408 M51.26 Lumbosacra l radiculitis 46658701 M54.17 Lumbosacra l spondylosis without myelopathy 13060452 M47.817 [id number] Carlita Aguilar MD PAIN OFFICE [address] [place] [address] 03/25/2023 09:02:29 03/25/2023 11:21:54 Lumbosacral radiculitis 04522516 M54.17 Displaceme nt of lumbar intervertebral disc without myelopathy 32022659 M51.26 Lumbosacra l spondylosis without myelopathy 53153258 M47.817 Spinal kj nosis of lumbar region 19454499 M48.062 [id number] Carlita Aguilar MD PAIN OFFICE [address] [place] [address] 06/26/2023 08:48:28 06/26/2023 10:32:50 Spinal stenosis of lumbar region 16149005 M48.062 Displaceme nt of lumbar intervertebral disc without myelopathy 91919670 M51.26 Lumbosacra l radiculitis 81579142 M54.17 Lumbosacra l spondylosis without myelopathy 11554280 M47.817 [id number] Carlita Aguilar MD PAIN OFFICE [address] [place] [address] 07/15/2023 10:27:39 07/15/2023 15:36:47 Spinal stenosis of lumbar region 55882105 M48.062 Lumbosacra l radiculitis 60028923 M54.17 Displaceme nt of lumbar intervertebral disc without myelopathy 06117599 M51.26 Lumbosacra l spondylosis without myelopathy 44837925 M47.817 [id number] Carlita Aguilar MD PAIN OFFICE [address] [place] [address] 10/16/2023 08:40:15 10/16/2023 10:13:18 Spinal stenosis of lumbar region 16743776 M48.062 Displaceme nt of lumbar intervertebral disc without myelopathy 41415827 M51.26 Lumbosacra l radiculitis 10870199 M54.17 Lumbosacra l spondylosis without myelopathy 98863910 M47.817 [id number] Carlita Aguilar MD PAIN OFFICE [address] [place] [address] 12/22/2023 14:38:42 12/22/2023 15:55:19 Spinal stenosis of lumbar region 91503105 M48.062 Lumbosacra l radiculitis 04844632 M54.17 Displaceme nt of lumbar intervertebral disc without myelopathy 63974166 M51.26 Lumbosacra l spondylosis without myelopathy 87110062 M47.817 [id number] Carlita Aguilar MD PAIN OFFICE [address] [place] [address] 03/23/2024 14:43:41 03/23/2024 16:19:28 Lumbosacral radiculitis 84203502 M54.17 Displaceme nt of lumbar intervertebral disc without myelopathy 75888883 M51.26 Spinal kj nosis of lumbar region 52011496 M48.062 Lumbosacra l spondylosis without myelopathy 85290895 M47.817 [id number] Carlita Aguilar MD PAIN OFFICE [address] [place] [address] 04/26/2024 11:20:20 04/26/2024 16:39:44 Spinal stenosis of lumbar region 41362170 M48.062 Lumbosacra l radiculitis 81489004 M54.17 Displaceme nt of lumbar intervertebral disc without myelopathy 23242806 M51.26 Lumbosacra l spondylosis without myelopathy 77174992 M47.817 [id number] Carlita Aguilar MD [facility] PAIN OFFICE [address] [place] [address] 07/28/2024 10:57:06 07/28/2024 16:19:19 Lumbosacral radiculitis 81700334 M54.17 Displaceme nt of lumbar intervertebral disc without myelopathy 76006280 M51.26 Spinal kj nosis of lumbar region 96241073 M48.062 Lumbosacra l spondylosis without myelopathy 79677611 M47.817 [id number] Carlita Aguilar MD PAIN OFFICE [address] [place] [address] 08/11/2024 10:59:11 08/11/2024 17:07:59 Spinal stenosis of lumbar region 62743228 M48.062 Lumbosacra l radiculitis 31876439 M54.17 Displaceme nt of lumbar intervertebral disc without myelopathy 92966794 M51.26 Lumbosacra l spondylosis without myelopathy 05765883 M47.817 Health Concerns Section Related Observation LastModified by Organization Detai ls LastModified Time None Recorded Concern Status LastModified by Organization Details LastModified Time None Recorded Advance Directives Directive None Recorded Payers Encounter Date Sequence Insurance Name Policy Number Policy Chatterjee Covered Member ID Chatterjee Member ID Guarantor Name 12/22/2023 1 [facility] (MEDICAID REPLACEMENT - [place] [id number] Codie Fernández 03/23/2024 1 [facility] (MEDICAID REPLACEMENT [place] [id number] Codie Fernández 04/26/2024 1 [facility] (MEDICAID REPLACEMENT - [place] [id number] Codie Fernández 07/28/2024 1 [facility] (MEDICAID REPLACEMENT - [place]) [place] [id number] Codie Fernández 08/11/2024 1 [facility] (MEDICAID REPLACEMENT - [place]) [place] Mack[place] Pradeep [id number] Codie Pradeep Notes Date Note Type Note Provider Name and Address Organization Details Recorded Time 12/22/2023 text/html She is here for a lumbar epidural steroid injection under fluoroscopic guidance. Carlita Aguilar MD [address] [facility] , [address], [place], [address], [place] [facility] 12/22/2023 16:03:15 03/23/2024 text/html She is here for a follow up. She was last seen for a Lumbar epidural steroid injection under fluoroscopic guidance on 12/22/2023. She reports 90% pain benefit for 2 and half months with a return of pain back to baseline. She has been having more right sided low back pain which is now radiating into her right buttock region and into her right thigh and now occasionally into her left buttock region. She has difficulty walking due to pain . Pain level is high. Pain interferes with sleep. She has no history of bladder or bowel incontinence.She has trialed physical therapy and is currently doing physical therapy at [facility] with persistent pain.She states she is S/P left foot surgery on 11/05/2023 and is seeing [facility]. Her gait is altered due to ankle problems and this is impacting her low back pain.She had carpal tunnel surgery in February and May 2023. She is scheduled to have left shoulder surgery. She has been on prednisone for an asthma exacerbation and now better. Carlita Aguilar MD [address] , [address], [place], [address], [place] [facility] 03/28/2024 10:32:50 04/26/2024 text/html She is here for a lumbar epidural steroid injection under fluoroscopic guidance. Carlita Aguilar MD [address] , [address], [place], [address], [place] [facility] 04/26/2024 16:43:00 07/28/2024 text/html She is here for a follow up. She was last seen for a Lumbar epidural steroid injection under fluoroscopic guidance on 04/26/2024. She reports 90% pain benefit for 2 and half months with a return of pain back to baseline. She has been having more right sided low back pain which is now radiating into her right buttock region and into her right thigh and now occasionally into her left buttock region. She has difficulty walking due to pain . Pain level is high. Pain interferes with sleep. She has no history of bladder or bowel incontinence.She has trialed physical therapy and is currently doing physical therapy at [facility] with persistent pain.She states she is S/P left foot surgery on 11/05/2023 and is seeing [facility]. Her gait is altered due to ankle problems and this is impacting her low back pain.She had carpal tunnel surgery in February and May 2023. She had left shoulder replacement. She is doing better with physical therapy for her shoulder. Carlita Aguilar MD [address] [facility] , [address], [place], [address], [facility] 07/29/2024 09:59:27 08/11/2024 text/html She is here for a lumbar epidural steroid injection under fluoroscopic guidance. Carltia Aguilar MD [address] [facility] , [address], [place], [address], [facility] 08/11/2024 17:11:07 OBGyn Episode No OBEpisode recorded.
--- OUTSIDE RECORDS SUMMARY | 2024-08-29 17:39 | XMS_ITS | Continuity of Care Document ---
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 [...] booked after insurance approval. She needs a driver guide on the day of the procedure. [email or web address] Not available 07/28/2024 11:36:10 Plan of Treatment Reminders Order Date Submit Date Provider Last Modified By Organization Details Last Modified Time Details Appointments RETURN 2024 11:00A M Carlita paul MD Not available Not available Not available Lab None recorded . Referral None recorded . Procedures None recorded . Surgeries None recorded . Imaging None recorded . Medication Orders None recorded . Patient TargetsNo targets recorded. Patient InstructionsNo instructions recorded. Reason for Referral None Reported. Problems Name Problem SNOMED Code Status Onset Date Resolution Date Notes Provider Name and Address Organization Details Recorded Time Low back pain 719296149 Active 2015 Carlita paul MD [address] , [address], [facility] [place], [address], [place] [facility] 6 15:50:45 Lumbosacral radiculitis 06285712 Active 2017 Carlita paul MD [address] , [address], [facility] [place], [address], [place] [facility] 8 10:17:40 Displacement of lumbar intervertebral disc without myelopathy 28510528 Active 2017 Carlita paul MD [address] , [address], [facility] [place], [address], [place] [facility] 8 10:17:41 Lumbosacral spondylosis without myelopathy 04349314 Active 2017 Carlita paul MD [address] , [address], [facility] [place], [address], [place] [facility] 8 10:17:42 Spinal stenosis of lumbar region 82302763 Active 2017 Carlita paul MD [address] , [address], [facility] [place], [address], [place] [facility] 8 10:17:43 Problem Notes None recorded. Procedures Surgical History Date Name Laterality Status Provider Name and Address Organization Details Recorded Time 08/11/20 24 Lumbar Epidural steroid injection under fluoroscopic guidance completed Carlita Aguilar MD [address] , [address], [place], [address], [place] [facility] 08/11/2024 17:00:18 06/07/20 24 total shoulder replacement completed Carlita Aguilar MD [address] , [address], [facility] [place], [address], [place] [facility] 07/28/2024 11:09:13 04/26/20 24 Lumbar Epidural steroid injection under fluoroscopic guidance completed Carlita Aguilar MD [address] , [address], [place], [address], [place] [facility] 04/26/2024 16:35:33 12/22/19 24 Lumbar Epidural steroid injection under fluoroscopic guidance completed Carlita Aguilar MD [address] , [address], [place], [address], [place] [facility] 12/22/2023 15:01:08 07/15/20 23 Lumbar Epidural steroid injection under fluoroscopic guidance completed Carlita Aguilar MD [address] , [address], [place], [address], [place] [facility] 07/15/2023 14:07:22 03/25/20 23 Lumbar Epidural steroid injection under fluoroscopic guidance completed Carlita Aguilar MD [address] , [address], [place], [address], [place] [facility] 03/25/2023 10:50:21 12/04/19 23 Lumbar Epidural steroid injection under fluoroscopic guidance completed Carlita Aguilar MD [address] , [address], [place], [address], [place] [facility] 12/03/2022 10:16:53 07/29/20 22 Lumbar Epidural steroid injection under fluoroscopic guidance completed Carlita Aguilar MD [address] , [address], [place], [address], [place] [facility] 07/29/2022 09:04:50 03/11/20 22 Lumbar Epidural steroid injection under fluoroscopic guidance completed Carlita Aguilar MD [address] , [address], [place], [address], [place] [facility] 03/11/2022 14:38:59 09/03/19 22 Radiofrequency of Lumbar/Sacral medial branches supplying the facets under fluoroscopic guidance completed Carlita Aguilar MD [address] , [address], [place], [address], [place] [facility] 09/03/2021 15:52:43 05/29/20 21 Fluoroscopic Guided Lumbar Facet Steroid Injections of levels completed Carlita Aguilar MD [address] , [address], [place], [address], [place] [facility] 05/29/2021 10:20:51 12/13/19 21 Fluoroscopic Guided Lumbar Facet Steroid Injections of levels completed Carlita Aguilar MD [address] , [address], [place], [address], [place] [facility] 12/12/2020 13:57:08 10/03/19 21 Lumbar Epidural steroid injection under fluoroscopic guidance completed Carlita Aguilar MD [address] , [address], [place], [address], [place] [facility] 10/03/2020 10:00:24 07/11/20 20 Lumbar Epidural steroid injection under fluoroscopic guidance completed Carlita Aguilar MD [address] , [address], [place], [address], [place] [facility] 07/11/2020 10:28:54 06/13/20 20 Fluoroscopic Guided Lumbar Facet Steroid Injections of levels completed Carlita Aguilar MD [address] , [address], [place], [address], [place] [facility] 06/13/2020 10:06:27 02/21/20 20 Lumbar Epidural steroid injection under fluoroscopic guidance completed Carlita Aguilar MD [address] , [address], [place], [address], [place] [facility] 02/21/2020 10:32:02 10/26/19 20 Fluoroscopic Guided Lumbar Facet Steroid Injections of levels completed Carlita Aguilar MD [address] , [address], [place], [address], [place] [facility] 10/26/2019 14:00:13 08/31/19 20 Lumbar Epidural steroid injection under fluoroscopic guidance completed Carlita Aguilar MD [address] , [address], [place], [address], [place] [facility] 09/05/2019 11:29:25 06/08/20 19 Fluoroscopic Guided Lumbar Facet Steroid Injections of levels completed Carlita Aguilar MD [address] , [address], [place], [address], [place] [facility] 06/10/2019 14:46:56 05/20/20 19 arthrodesis of foot completed Carlita Aguilar MD [address] , [address], [place], [address], [place] [facility] 06/08/2019 09:51:34 04/13/20 19 Lumbar Epidural steroid injection under fluoroscopic guidance completed Carlita Aguilar MD [address] , [address], [place], [address], [place] [facility] 04/20/2019 16:00:55 01/13/20 19 Lumbar Epidural steroid injection under fluoroscopic guidance completed Carlita Aguilar MD [address] , [address], [place], [address], [place] [facility] 01/12/2019 13:18:20 09/22/19 19 Lumbar Epidural steroid injection under fluoroscopic guidance completed Carlita Aguilar MD [address] , [address], [place], [address], [place] [facility] 09/23/2018 11:32:09 05/18/20 18 Lumbar Epidural steroid injection under fluoroscopic guidance completed Carlita Aguilar MD [address] , [address], [place], [address], [place] [facility] 05/18/2018 16:07:36 11/25/19 18 Lumbar Epidural steroid injection under fluoroscopic guidance completed Carlita Aguilar MD [address] , [address], [place], [address], [place] [facility] 11/24/2017 11:24:09 06/30/20 17 Lumbar Epidural steroid injection under fluoroscopic guidance completed Carlita Aguilar MD [address] , [address], [place], [address], [place] [facility] 07/03/2017 08:59:37 03/10/20 17 Lumbar Epidural steroid injection under fluoroscopic guidance completed Carlita Aguilar MD [address] , [address], [place], [address], [place] [facility] 03/10/2017 14:35:03 11/27/19 17 Lumbar Epidural steroid injection under fluoroscopic guidance completed Carlita Aguilar MD [address] [facility] , [address], [place], [address], [place] [facility] 11/26/2016 10:15:50 07/22/20 16 Lumbar Epidural steroid injection under fluoroscopic guidance completed Carlita Aguilar MD [address] [facility] , [address], [place], [address], [place] [facility] 07/22/2016 15:04:33 Joint Replacement completed Kerrie Oates [place] - [facility] 07/09/2016 14:28:12 Other completed Kerrie Oates [place] [facility] 07/09/2016 14:29:02 Hernia Repair completed Kerrie Oates [place] [facility] 07/09/2016 14:29:39 Other completed Kerrie Oates [place] [facility] 07/09/2016 14:30:26 Hysterectomy completed Kerrie Oates [place] [facility] 07/09/2016 14:30:57 Other completed Kerrie Oates [place] [facility] 07/09/2016 14:32:02 Carpal tunnel surgery completed Carlita Aguilar MD [address] [facility] , [address], [place], [address], [place] [facility] 06/26/2023 09:11:01 Imaging Results None recorded. Procedure Notes None recorded. Medical Equipment None Reported. Allergies Allergen ID Allergen Name Allergen Category Reaction Reaction Severity Criticality Documentation Date Start Date Code Code System Note Provider Name and Address Organization Details Recorded Time 45535 latex environme nt,medica tion itching rash Not available Not available Not available 09/22/2018 72894 91 RxNorm Kerrie rutledge [place] [facility] 9 09:44:39 [...] Not Available Vitals Date Recorded Body height Body mass index (BMI) Body weight Heart rate Oxygen saturation Oxygen saturation in Arterial blood by Pulse oximetry Systolic blood pressure Diastolic blood pressure Provider Name and Address Organization Details Last Updated DateTime 4 154.94 cm 32.7 kg/m2 90538.4 8 g 69 /min 98 % 98 % 144 mm[Hg] 69 mm[Hg] Carlita paul MD [facility] [address] , [address], [facility] [place], [address], [place] [facility] 4 11:02:55 Social History Question Answer Notes LastModified by Organizat ion Details LastModified Time Tobacco Smoking Status Never Smoker Not Available [employer] 06/08/2020 03:16:12 What Is Your Level Of Alcohol Consumption? None [id number] Information not available 06/08/2020 Are You Currently Employed? No [id number] Information not available 06/08/2020 Which Illicit Or Recreational Drugs Have You Used? No [id number] Information not available 06/08/2020 Education 8 Information no t available 07/09/2016 Live Alone Or With Others? With Others And 3 Children [email or web address] Information not available 07/09/2016 Marital Status [email or web address] Informatio n not available 07/09/2016 What Was The Date Of Your Most Recent Tobacco Screening? 01/12/2019 [id number] Information not available 06/08/2020 Sex: Unknown Functional Status None recorded. Mental Status None recorded. Family History Relationship Description Onset Age of this Age Resolved Age Notes LastModified by Organization Details LastModified Time Mother Cerebrovascu lar accident 85 years old in hosp[facility] e [email or web address] Not available 02/27/2022 14:47:26 Medical History Condition Response Arthritis Y Asthma Y Gynecological HistoryNo gynecological history recorded. Obstetrics History GPAL:G 0 P 0 0 0 0 Past Encounters Encounter ID Performer Location Encounter Start Date Encounter Closed Date Diagnosis/Indication Diagnosis SNOMED-CT Code Diagnosis ICD10 Code Diagnosis Note [id number] Carlita Aguilar MD PAIN OFFICE [address] [place] [address] 07/28/2024 10:57:06 07/28/2024 16:19:19 Lumbosacral radiculitis 98298656 M54.17 Displaceme nt of lumbar intervertebral disc without myelopathy 37822492 M51.26 Spinal kj nosis of lumbar region 90997876 M48.062 Lumbosacra l spondylosis without myelopathy 77268107 M47.817 Health Concerns Section Related Observation LastModified by Organization Detai ls LastModified Time None Recorded Concern Status LastModified by Organization Details LastModified Time None Recorded Payers Encounter Date Sequence Insurance Name Policy Number Policy Chatterjee Covered Member ID Chatterjee Member ID Guarantor Name 07/28/2024 1 [facility] (MEDICAID REPLACEMENT - HMO) [place] Fernán[place] [id number] Codie Fernández Notes Date Note Type Note Provider Name and Address Organization Details Recorded Time 07/28/2024 text/html She is here for a [...] foot surgery on 11/05/2023 and is seeing [facility]. Her gait is altered due to ankle problems and this is impacting her low back pain.She had carpal tunnel surgery in February and May 2023. She had left shoulder replacement. She is doing better with physical therapy for her shoulder. Carlita Aguilar MD [address] [place] [address] , [address], [place], [address], [place] [facility] 07/29/2024 09:59:27 OBGyn Episode No OBEpisode recorded.
--- OUTSIDE RECORDS SUMMARY | 2024-08-29 17:39 | XMS_ITS | Continuity of Care Document ---
Author Organization [place] [facility] Address [address] [facility] [address] [place] [address] Care Team Providers Care Hospitality Ambassador Name Role Phone TEAM [facility]WELLNESS Referring Provider RONALD RM Primary Care Provider Assessment Encounter Date Assessment Date Assessment LastModified by Organization Details LastModified Time 08/11/2024 08/11/2024 Codie Fernández is a 54 [...] causing mild flattening of the dural sac, [id number] e right and mild left-sided foraminal stenosis. [...] She will follow up in ten weeks [email or web address] Not available 08/11/2024 17:00:50 Plan of Treatment [...] Modified By Organization Details Last Modified Time 08/11/2024 [id number] She was advised to continue activities as tolerated. [email or web address] Not available 08/11/2024 16:59:30 Reason for Referral None Reported. Problems Name Problem SNOMED Code Status Onset Date Resolution Date Notes Provider Name and Address Organization Details Recorded Time Low back pain 694386662 Active 2015 Carlita paul MD [address] , [address], [facility] [place], [address], [place] [facility] 6 15:50:45 Lumbosacral radiculitis 71490289 Active 2017 Carlita paul MD [address] , [address], [facility] [place], [address], [place] [facility] 8 10:17:40 Displacement of lumbar intervertebral disc without myelopathy 10209317 Active 2017 Carlita paul MD [address] , [address], [facility] [place], [address], [place] [facility] 8 10:17:41 Lumbosacral spondylosis without myelopathy 92275023 Active 2017 Carlita paul MD [address] , [address], [facility] [place], [address], [place] [facility] 8 10:17:42 Spinal stenosis of lumbar region 67361867 Active 2017 Carlita paul MD [address] , [address], [facility] [place], [address], [place] [facility] 8 10:17:43 Problem Notes None recorded. Procedures Surgical History Date Name Laterality Status Provider Name and Address Organization Details Recorded Time 08/11/20 24 Lumbar Epidural steroid injection under fluoroscopic guidance completed Carlita Aguilar MD [address] , [address], [place], [address], [place] [facility] 08/11/2024 17:00:18 06/07/20 24 total shoulder replacement completed Carlita Aguilar MD [address] , [address], [place], [address], [place] [facility] 07/28/2024 11:09:13 04/26/20 24 Lumbar Epidural steroid injection under fluoroscopic guidance completed Carlita Aguilar MD [address] [facility] , [address], [place], [address], [place] [facility] 04/26/2024 16:35:33 12/22/19 24 Lumbar Epidural steroid injection under fluoroscopic guidance completed Carlita Aguilar MD [address] [facility] , [address], [place], [address], [place] [facility] 12/22/2023 15:01:08 07/15/20 23 Lumbar Epidural steroid injection under fluoroscopic guidance completed Carlita Aguilar MD [address] [facility] , [address], [place], [address], [place] [facility] 07/15/2023 14:07:22 03/25/20 23 Lumbar Epidural steroid injection under fluoroscopic guidance completed Carlita Aguilar MD [address] [facility] , [address], [place], [address], [place] [facility] 03/25/2023 10:50:21 12/04/19 23 Lumbar Epidural steroid injection under fluoroscopic guidance completed Carlita Aguilar MD [address] [facility] , [address], [place], [address], [place] [facility] 12/03/2022 10:16:53 07/29/20 22 Lumbar Epidural steroid injection under fluoroscopic guidance completed Carlita Aguilar MD [address] [facility] , [address], [place], [address], [place] [facility] 07/29/2022 09:04:50 03/11/20 22 Lumbar Epidural steroid injection under fluoroscopic guidance completed Carlita Aguilar MD [address] [facility] , [address], [place], [address], [place] [facility] 03/11/2022 14:38:59 09/03/19 22 Radiofrequency of Lumbar/Sacral medial branches supplying the facets under fluoroscopic guidance completed Carlita Aguilar MD [address] [facility] , [address], [place], [address], [place] [facility] 09/03/2021 15:52:43 05/29/20 21 Fluoroscopic Guided Lumbar Facet Steroid Injections of levels completed Carlita Aguilar MD [address] , [address], [place], [address], [place] [facility] 05/29/2021 10:20:51 12/13/19 21 Fluoroscopic Guided Lumbar Facet Steroid Injections of levels completed Carlita Aguilar MD [address] , [address], [place], [address], [place] [facility] 12/12/2020 13:57:08 10/03/19 21 Lumbar Epidural steroid injection under fluoroscopic guidance completed Carlita Aguilar MD [address] , [address], [place], [address], [place] [facility] 10/03/2020 10:00:24 07/11/20 20 Lumbar Epidural steroid injection under fluoroscopic guidance completed Carlita Aguilar MD [address] , [address], [place], [address], [place] [facility] 07/11/2020 10:28:54 06/13/20 20 Fluoroscopic Guided Lumbar Facet Steroid Injections of levels completed Carlita Aguilar MD [address] , [address], [place], [address], [place] [facility] 06/13/2020 10:06:27 02/21/20 20 Lumbar Epidural steroid injection under fluoroscopic guidance completed Carlita Aguilar MD [address] , [address], [place], [address], [place] [facility] 02/21/2020 10:32:02 10/26/19 20 Fluoroscopic Guided Lumbar Facet Steroid Injections of levels completed Carlita Aguilar MD [address] , [address], [place], [address], [place] [facility] 10/26/2019 14:00:13 08/31/19 20 Lumbar Epidural steroid injection under fluoroscopic guidance completed Carlita Aguilar MD [address] , [address], [place], [address], [place] [facility] 09/05/2019 11:29:25 06/08/20 19 Fluoroscopic Guided Lumbar Facet Steroid Injections of levels completed Carliat Aguilar MD [address] , [address], [place], [address], [place] [facility] 06/10/2019 14:46:56 05/20/20 19 arthrodesis of foot completed Carlita Aguilar MD [address] , [address], [place], [address], [place] [facility] 06/08/2019 09:51:34 04/13/20 19 Lumbar Epidural steroid injection under fluoroscopic guidance completed Carlita Aguilar MD [address] , [address], [place], [address], [place] [facility] 04/20/2019 16:00:55 01/13/20 19 Lumbar Epidural steroid injection under fluoroscopic guidance completed Carlita Aguilar MD [address] , [address], [place], [address], [place] [facility] 01/12/2019 13:18:20 09/22/19 19 Lumbar Epidural steroid injection under fluoroscopic guidance completed Carlita Aguilar MD [address] , [address], [place], [address], [place] [facility] 09/23/2018 11:32:09 05/18/20 18 Lumbar Epidural steroid injection under fluoroscopic guidance completed Carlita Aguilar MD [address] , [address], [place], [address], [place] [facility] 05/18/2018 16:07:36 11/25/19 18 Lumbar Epidural steroid injection under fluoroscopic guidance completed Carlita Aguilar MD [address] , [address], [place], [address], [place] [facility] 11/24/2017 11:24:09 06/30/20 17 Lumbar Epidural steroid injection under fluoroscopic guidance completed Carlita Aguilar MD [address] , [address], [place], [address], [place] [facility] 07/03/2017 08:59:37 03/10/20 17 Lumbar Epidural steroid injection under fluoroscopic guidance completed Carlita Aguilar MD [address] , [address], [place], [address], [place] [facility] 03/10/2017 14:35:03 11/27/19 17 Lumbar Epidural steroid injection under fluoroscopic guidance completed Carlita Aguilar MD [address] , [address], [place], [address], [place] [facility] 11/26/2016 10:15:50 07/22/20 16 Lumbar Epidural steroid injection under fluoroscopic guidance completed Carlita Aguilar MD [address] , [address], [place], [address], [place] [facility] 07/22/2016 [...] Pain Management 07/09/2016 14:30:57 Other completed Kerriebillie Oates [place] [facility] 07/09/2016 14:32:02 Carpal tunnel surgery completed Carlita Aguilar MD [address] , [address], [place], [address], [place] [facility] 06/26/2023 09:11:01 Imaging Results None recorded. Procedure Notes None recorded. Medical Equipment None Reported. Allergies Allergen ID Allergen Name Allergen Category Reaction Reaction Severity Criticality Documentation Date Start Date Code Code System Note Provider Name and Address Organization Details Recorded Time 99967 latex environme nt,medica tion itching rash Not available Not available Not available 09/22/2018 61195 91 RxNorm Kerrie rutledge [place] - [place] [...] completed Not Available Not Available Not Available Eliqutristen DVT-PE Treatment 30-Day Starter 5 mg (74 [...] Is Your Level Of Alcohol Consumption? None [id number] Information not available 06/08/2020 Are You Currently Employed? No [id number] Information not available 06/08/2020 Which Illicit Or Recreational Drugs Have You Used? No [id number] Information not available 06/08/2020 Education 8 Information no t available 07/09/2016 Live Alone Or With Others? With Others And 3 Children [email or web address] Information not available 07/09/2016 Marital Status felix Informatio n not available 07/09/2016 What Was The Date Of Your Most Recent Tobacco Screening? 01/12/2019 [id number] Information not available 06/08/2020 Sex: Unknown Functional [...] SNOMED-CT Code Diagnosis ICD10 Code Diagnosis Note [id number] Carlita Aguilar MD PAIN OFFICE [address] [place] [address] 07/28/2024 10:57:06 07/28/2024 16:19:19 Lumbosacral radiculitis 86550633 M54.17 Displaceme nt of lumbar intervertebral disc without myelopathy 96783147 M51.26 Spinal kj nosis of lumbar region 86604983 M48.062 Lumbosacra l spondylosis without myelopathy 77657381 M47.817 [id number] Carlita Aguilar MD PAIN OFFICE [address] [place] [address] 08/11/2024 10:59:11 08/11/2024 17:07:59 Spinal stenosis of lumbar region 83237206 M48.062 Lumbosacra l radiculitis 16705280 M54.17 Displaceme nt of lumbar intervertebral disc without myelopathy 72341597 M51.26 Lumbosacra l spondylosis without myelopathy 10696367 M47.817 Health Concerns Section Related Observation LastModified by Organization Detai ls LastModified Time None Recorded Concern Status LastModified by Organization Details LastModified Time None Recorded Payers Encounter Date Sequence Insurance Name Policy Number Policy Chatterjee Covered Member ID Chatterjee Member ID Guarantor Name 08/11/2024 1 [facility] (MEDICAID REPLACEMENT - HMO) [place] Mack[place] Pradeep [id number] Codie Fernández Notes Date Note Type Note Provider Name and Address Organization Details Recorded Time 08/11/2024 text/html She is here for a lumbar epidural steroid injection under fluoroscopic guidance. Carlita Aguilar MD [address] [place] [address] , [address], [place], [address], [facility] 08/11/2024 17:11:07 OBGyn Episode No OBEpisode recorded.
== END 2024-08-29 16:27 | disposition home or self-care (01) ==
PROVIDERS: PCP Internal Medicine; Visit Provider Internal Medicine
DX: J67.9 Hypersensitivity pneumonitis due to unspecified organic dust (principal); G47.33 Obstructive sleep apnea (adult) (pediatric); J30.9 Allergic rhinitis, unspecified; J45.909 Unspecified asthma, uncomplicated
CPT/HCPCS: 99213

== ENCOUNTER → 2024-08-29 15:56 | Outpatient (BNVA) | payer OTHER, SELFPAY | PROVIDERS: PCP Internal Medicine; Visit Provider Internal Medicine | DX: J45.909 Unspecified asthma, uncomplicated (principal); J67.9 Hypersensitivity pneumonitis due to unspecified organic dust; G47.33 Obstructive sleep apnea (adult) (pediatric) | CPT/HCPCS: 99212 ==

== ENCOUNTER → 2024-09-27 07:36 | Outpatient (BNV) | payer OTHER, SELFPAY | PROVIDERS: PCP Internal Medicine; Visit Provider Radiology Diagnostic Radiology | DX: R91.8 Other nonspecific abnormal finding of lung field (principal) | CPT/HCPCS: 71250 ==

== ENCOUNTER 2024-12-06 10:09 | Outpatient (AMB) | payer OTHER, SELFPAY ==
[2024-12-06 10:11] VITALS: BP 130/82; PULSE 75; O2SAT 100; BMI 31.7
--- NOTE | 2024-12-06 10:11 | A.OFFVIS_ITS ---
Vital Signs 12/06/24 10:11 Height 5 ft 1 in Weight 167 lb 8.821 oz BMI 31.7 BP 130/82 Blood Pressure Location Lt brachial Position Sitting Pulse 75 Pulse Source Pulse Oximeter Pulse Oximetry (%) 100 Oxygen Delivery Method Room Air Intake Visit Reasons: asthma Intake Note: pt is here for follow up and states some short of breath when waking up in am, and exertion, still struggling with cpap Certified Maintenance Welder Required: No Allergies latex [Latex] Allergy (Mild, Verified 12/06/24 10:23) UNKNOWN cats, pollen, mold Allergy (Unknown, Uncoded 12/06/24 10:23) Unknown Latex Allergy (Unknown, Uncoded 12/06/24 10:23) Unknown Medication List - Last Reconciled 12/06/24 by Khadar Parker MD albuterol sulfate 90 mcg/actuation 2 inhalations inhalation Q6H PRN azelastine 2 sprays intranasal BID benzonatate 100 mg PO BID PRN bupropion HCl XL 300 mg PO DAILY calcium citrate 1 tab PO DAILY cholecalciferol (vitamin D3) 1 tab PO DAILY fluticasone propion-salmeterol 230-21 mcg/actuation (Advair HFA) 1 puff inhalation BID folic acid 1 mg PO DAILY guaifenesin 200 mg (5 mL) PO Q4H PRN guaifenesin ER (Mucus Relief ER) 1,200 mg PO BID hydroxyzine HCl 1 tab PO Q8H PRN ibuprofen 800 mg PO TID PRN ipratropium bromide 2.5 mL inhalation QID PRN ipratropium-albuterol 20-100 mcg/actuation (Combivent Respimat) 1 puff inhalation QID 30 days ketotifen fumarate 0.025%(0.035%) 1 drp ophthalmic (eye) BID PRN loratadine 1 tab PO DAILY montelukast 1 tab PO BEDTIME naltrexone 50 mg PO DAILY omeprazole 1 cap PO DAILY@0630 tezepelumab-ekko (Tezspire) mg subcut tiotropium bromide 1.25 mcg/actuation (Spiriva Respimat) 2 puffs PO DAILY Do you need a note to return to daycare/school/sports/work: No HPI HPI asthma: Details: THIS 54 YEARS OLD FEMALE IS HERE FOR 4 MONTHS FOLLOW-UP. DURING THE PAST 4 MONTHS SHE IS DOING FAIRLY WELL EXCEPT THAT SHE STILL USES THE NEBULIZER ABOUT 3 TO 4 TIMES A DAY, IN ADDITION TO ADVAIR HFA 2 PUFFS B.I.D., AND MUCINEX EX OR 1200 MG B.I.D.. WELL SPIRIVA RESPIMAT 2 INHALATIONS DAILY, SHE HAS BEEN RELATIVELY FREE OF ANY ACUTE RESPIRATORY INFECTION, STILL GETS FREQUENT NASAL CONGESTION. LUCKILY SINCE HER LAST VISIT SHE HAS HAD NO RESPIRATORY INFECTIONS. COUNT INCLUDES THE [facility] Medical History Allergic alveolitis Bronchitis SPARKLE (obstructive sleep apnea) Allergic rhinitis Asthma Pulmonary embolism Pulmonary cavitary lesion COPD (chronic obstructive pulmonary disease) Pulmonary cavitary lesion Asthma Surgical History H/O gastric sleeve History of partial hysterectomy History of surgery on wrist History of ankle surgery History of knee replacement Family History Father Prostate cancer Social History Household Members: Spouse and Family Caregiver staying overnight: No Housing: House Are you a primary memory care director to a significant other at home: Yes (mother) Do you presently have visiting nurse or other home services: Yes Unable to assess alcohol history related to: Unknown Alcohol intake: never Patient Tobacco Use Status: Never used Tobacco Advance Directives Date on File: 12/26/21 service: No Current occupational status: disabled Female Reproductive History Menstrual Age of Menarche: 7 Review of Systems Const All systems reviewed & are unremarkable except as noted in HPI and below Eyes Reports no additional complaints ENT Reports no additional complaints Card Denies chest pain, Denies irregular heart rhythm and Denies leg edema Resp Reports as per HPI GI Reports no additional complaints Reports no additional complaints Musc Reports no additional complaints Skin/Breast Reports system reviewed and no additional complaints, except as documented Neuro Reports no additional complaints Psych Reports anxiety and Reports depression Endo Reports no additional complaints Physical Exam Vital Signs: Last Vital Signs Pulse 75 12/06/24 10:11 BP 130/82 12/06/24 10:11 Pulse Ox 100 12/06/24 10:11 Oxygen Delivery Method Room Air 04/15/25 10:11 BMI result Body Mass Index 31.7 Const General: comfortable (But short of breath on minimal walking and during conversation.), no acute distress, alert and awake Orientation/consciousness: patient oriented x3 HEENT Head: Yes normal to inspection General nose exam: No nasal polyps present and No nasal discharge present Face and sinus: Yes sinuses nontender Mouth: oropharynx normal Throat: Yes posterior oropharynx normal Eyes General: appearance normal, both eyes and all related structures Neck Neck: Yes normal visual inspection, Yes no lymphadenopathy, Yes trachea midline and Yes no JVD Thyroid: Thyroid normal Chest Chest palpation & inspection: normal inspection of the chest, normal palpation of entire chest wall and no tenderness Resp Other: Percussion note resonant, breath sounds are distant but equal on both sides. No audible wheezes . NO CREPITATIONS ARE HEARD. Cardio Palpation: normal PMI Rate: regular rate Rhythm: regular rhythm Heart sounds: no gallops and no murmurs Peripheral pulses: Peripheral pulses 2+ throughout GI Palpation (GI): Soft to palpation, nontender, No hepatosplenomegaly present and no masses Auscultation: normal bowel sounds Back/Spine/Pelvis Thoracic/Lumbar Spine: thoracic and lumbar spine normal to inspection Skin General skin exam: no rashes or lesions noted Neuro General: patient oriented x3 and no focal motor deficits Cranial nerves: Yes CN's II-XII intact bilaterally Extrem General: Yes normal to inspection, Yes no clubbing, cyanosis or edema and Yes no calf tenderness Psych Speech and movement: Normal speech and movement present Results Reviewed Results Reviewed: CHEST CT SCAN ON 09/27/2024 RESULTS ARE REVIEWED WITH THE PATIENT. THERE WAS SIGNIFICANT IMPROVEMENT NOTED, WITH ONLY SMALL NUMBER OF GROUND-GLASS OPACITIES REMAINING IN LOWER LUNGS. Assessment & Plan Assessment & Plan (1) COPD (chronic obstructive pulmonary disease): Comment: This patient has been treated for long time as a case of advanced chronic obstructive pulmonary disease/ severe asthma. It seems to be well controlled at this time. She appears to be calm and not anxious at all. Code(s): J44.9 - Chronic obstructive pulmonary disease, unspecified Category: Medical Plan: Continue to use fluticasone- salmeterol 230-25 2 puffs b.i.d.. Ipratropium inhalation solution in the nebulizer Q 6 hours p.r.n. ( about 4 times a day Combivent Respimat 1 inhalation Q 6 hours p.r.n. especially when outdoors Spiriva Respimat 1.25 2 inh. daily (2) Pulmonary nodules: Comment: Previous CT scan of the chest in December 2021 showed multiple pulmonary nodules the largest being [address] SCAN ON 12/10/2022 AND A RECENT CTA SCAN ON 03/15/24 DIFFUSE BRONCHIAL THICKENING CONSISTENT WITH CHRONIC BRONCHITIS. VEXING AND WANING PULMONARY NODULES CONSISTENT WITH, INFLAMMATORY ETIOLOGY. NO CAVITARY LESION WAS NOTED. The latest CT scan on 09/27/2024, shows significant improvement and there are no noticeable pulmonary nodules only a few faint ground-glass opacities. There is no cavitary lesion anymore. Code(s): R91.8 - Other nonspecific abnormal finding of lung field Category: Medical Plan: I think patient is prone to have allergic alveolitis, At present well controlled and there is no evidence of any residual nodules or significant densities. I showed the picture and also discussed with the patient and have reassured her. (3) SPARKLE (obstructive sleep apnea): Comment: Patient gives history of diagnosis of SPARKLE, since many years ago. Initial sleep study at [facility] and then following 2 studies at [facility]. After losing significant weight she had stopped using the CPAP, as she did not have any symptoms of SPARKLE. Currently she has gained about. 20 lb of weight but still denies symptoms of SPARKLE. She is being followed at to weight management program of [facility]. Code(s): G47.33 - Obstructive sleep apnea (adult) (pediatric) Category: Medical Plan: as above (4) Allergic alveolitis: Comment: The findings described on CTA of the chest suggest that she gets inflammatory process in the upper lobes, alveolitis/ bronchiolitis. and it is not due to any active bacterial infection. She has no active infection or alveolitis at this time Code(s): J67.9 - Hypersensitivity pneumonitis due to unspecified organic dust Category: Medical Plan: Patient reassured and, reviewed the findings of CT scan with her Coding Level of Care Code Est Pt Level 3 (38945) Diagnoses COPD (chronic obstructive pulmonary disease) J44.9 Pulmonary nodules R91.8 SPARKLE (obstructive sleep apnea) G47.33 Allergic alveolitis J67.9
--- OUTSIDE RECORDS SUMMARY | 2024-12-06 11:58 | XMS_ITS | Encounter Summary ---
Author Organization [facility] Address [address] [place] [address] [address] [place] [address] Care Team Providers Care Visitor Service Assistant Name Role Phone Unavailable Primary Care Provider Unavailabl e Reason for Visit * Reason Comments Med Refill Encounter Details Date Type Department Care Team (Late st Contact Info) Description 08/23/2023 Refill [facility]ULT [facility] [address] [place], [place] [phone] Miguel Ángel Chong DMD [address], [place] [phone] Encounter for dental examination Social History Tobacco Use Types Packs/Day Years Used Date Smoking Tobacco: Never Smokeless Tobacco: Never Alcohol Use Standard Drinks/Week Comments Defer 0 (1 standard drink = 0.6 oz pur e alcohol) Comments Unknown Sex and Gender Information Value Date Recorded Sex Assigned at Female 06/23/2022 10:16 AM EDT Legal Sex Female 10:16 AM EDT Gender Identity Female 06/23/2022 10:16 AM EDT Sexual Orientation Choose not to disclose 2021 10:16 AM EDT documented as of this encounter Miscellaneous Notes * Telephone Encounter - Alexus aHney DDS - 08/25/2023 3:29 PM EST Approving, but needs appt for additional refills. documented in this encounter Plan of Treatment Upcoming Encounters Date Type Department Care Team (Late st Contact Info) Description 12/28/2024 9:30 AM EDT Office Visit [facility] [address], [place] [phone] Vinicio Quintero DDS [address] [place] [address] 01/17/2025 9:00 AM EDT Office Visit [facility] [address] [place] [address] Melissa Abreu [address] [place] [address] documented as of this encounter Visit Diagnoses Diagnosis Encounter for dental examination documented in this encounter
--- OUTSIDE RECORDS SUMMARY | 2024-12-06 11:58 | XMS_ITS | Encounter Summary ---
Author Organization [employer] Address [address] [facility] [address] [place] [address] Care Team Providers Care General Labor Name Role Phone Unavailable Primary Care Provider Unavailabl e Reason for Visit * Reason Onset Date Comments Med Refill 03/11/2023 Encounter Details Date Type Department Care Team ([facility] st Contact Info) Description 03/11/2023 Telephone [facility] [address] [place], [place] [phone] Alexus Haney, DDS [address] [place], [place] [phone] Med Refill Social History Tobacco Use Types Packs/Day Years [...] not to disclose 2021 10:16 AM EDT COVID-19 Exposure Response Date Recorded In the last 10 days, have yo u been in contact with someone who was confirmed or suspected to have Coronavirus/COVID-19? No / Unsure 02/19/2023 10:19 AM EDT documented as of this encounter Miscellaneous Notes * Telephone Encounter - Lizzie Lake - 03/11/2023 2:20 PM EDT Codie Fernández 1970 Patient stated that amoxicillin was going to be sent to pharmacy butstated she called pharmacy and nothing was sent yet please advise. documented in this encounter Plan of Treatment Upcoming Encounters Date Type Department Care Team (Late st Contact Info) Description 12/28/2024 9:30 AM EDT Office Visit [facility] [address] [place] [address] Vinicio Quintero DDS [address] [place], [place] [phone] 01/17/2025 9:00 AM EDT Office Visit [facility] [address] [place], [place] [phone] Melissa Abreu [address] [place], [place] [phone] documented as of this encounter Visit Diagnoses Not on filedocumented in this encounter
--- OUTSIDE RECORDS SUMMARY | 2024-12-06 11:58 | XMS_ITS | Encounter Summary ---
Author Organization [facility] Address [address] 7 [place] [address] Care Team Providers Care Python Consultant Name Role Phone Unavailable Primary Care Provider Unavailabl e Encounter Details Date Type Department Care Team (Late st Contact Info) Description 08/20/2022 Abstract [facility]ULT [facility] [address] [place] [address] Alexus Haney DDSilvia [address] [place] [address] Social History Tobacco Use Types Packs/Day Years Used Date Smoking Tobacco: Never Assessed Comments Unknown Sex and Gender Information Value Date Recorded Sex Assigned at Female 06/23/2022 10:16 AM EDT Legal Sex Female 10:16 AM EDT Gender Identity Female 06/23/2022 10:16 AM EDT Sexual Orientation Choose not to disclose 2021 10:16 AM EDT documented as of this encounter Plan of Treatment Upcoming Encounters Date Type Department Care Team (Late st Contact Info) Description 12/28/2024 9:30 AM EDT Office Visit [facility] [address] [place] [address] Vinicio Quintero DDS [address] [place] [address] 01/17/2025 9:00 AM EDT Office Visit [facility] [address] [place] [address] Melissa Abreu [address] [place] [address] documented as of this encounter Visit Diagnoses Not on filedocumented in this encounter
--- OUTSIDE RECORDS SUMMARY | 2024-12-06 11:58 | XMS_ITS | Encounter Summary ---
Author Organization [facility] Address [address] [place] [address] 7[address] [place] [address] Care Team Providers Care Gas Plant Worker Name Role Phone Unavailable Primary Care Provider Unavailabl e Reason for Visit * Reason Comments Med Refill Encounter Details Date Type Department Care Team (Late st Contact Info) Description 07/22/2023 Refill [facility] ADULT D[facility] [address] [place], [place] [phone] Miguel Ángel Chong DMD [address] [place], [place] [phone] Encounter for dental examination Social History Tobacco [...] encounter Miscellaneous Notes * Telephone Encounter - Miguel Ángel Chong DMD - 07/22/2023 8:02 AM EST Approving, but needs appt for additional refills. documented in this encounter Plan of Treatment Upcoming Encounters Date Type Department Care Team (Late st Contact Info) Description 12/28/2024 9:30 AM EDT Office Visit [facility] ADULT DENTAL [address] [place] [address] Vinicio Quintero DDS [address] [place] [address] 01/17/2025 9:00 AM EDT Office Visit [facility] ADULT DENTAL [address] [place] [address] Melissa Abreu [address] [place] [address] documented as of this encounter Visit Diagnoses Diagnosis Encounter for dental examination documented in this encounter
--- OUTSIDE RECORDS SUMMARY | 2024-12-06 11:58 | XMS_ITS | Encounter Summary ---
Author Organization [facility] Address [address] [place] [address] 7t [place] [address] Care Team Providers Care Nutrition Services Manager Name Role Phone Unavailable Primary Care Provider Unavailabl e Reason for Visit * Reason Comments Med Refill Encounter Details Date Type Department Care Team (Late st Contact Info) Description 10/21/2023 Refill [facility] ADULT DENTAL [address] [place], [place] [phone] Miguel Ángel Chong DMD [address] [place], [place] [phone] Encounter for dental examination Social History Tobacco [...] Encounter - Miguel Ángel Chong DMD - 10/21/2023 8:05 AM EST Approving, but needs appt for additional refills. documented in this encounter Plan of Treatment Upcoming Encounters Date Type Department Care Team (Late st Contact Info) Description 12/28/2024 9:30 AM EDT Office Visit [facility] ADULT D[facility] [address] [place] [address] Vinicio Quintero DDS [address] [place] [address] 01/17/2025 9:00 AM EDT Office Visit [facility] ADULT DENT[facility] [address] [place] [address] Melissa Abreu [address] [place] [address] documented as of this encounter Visit Diagnoses Diagnosis Encounter for dental examination documented in this encounter
--- OUTSIDE RECORDS SUMMARY | 2024-12-06 11:58 | XMS_ITS | Clinical Summary ---
Author Organization [employer] [facility] Address [address] [place] [address] Care Team Providers Care Electronic Data Processing Auditor Name Role Phone Gt Prescott MD Primary Care Provider [phone] Allergies Active Allergy Reactions Criticality Noted Date Comments Latex 06/19/2023 Medications Medication Sig Dispensed Refills Start Date End Date Status Azelastine HCl 137 MCG/SPRAY SOLN INSTILL 2 SPRAYS IN EACH NOSTRIL TWICE A DAY 0 09/15/2022 Active calcium citrate (CALCITRATE) 950 (200 Ca) MG tablet Take 1 tablet (950 mg total) by mouth daily. 0 03/26/2023 Active D3-1000 25 MCG (1000 UT) capsule Take by mouth daily. 0 06/05/2023 Active Advair HFA 230-21 MCG/ACT inhaler 2 puffs 2 (two) times a day. 0 06/14/2023 Active folic acid (FOLVITE) tablet 1 mg Take 1 tablet (1,000 mcg total) by mouth daily. 0 10/04/2022 Active hydrOXYzine (ATARAX) 25 MG tablet TAKE 1 TABLET BY MOUTH EVERY 8 HOURS NEEDED FOR ITCHING 0 06/11/2023 Active ipratropium (ATROVENT) 0.02 % nebulizer solution USE 1 VIAL VIA NEBULIZER 4 TIMES DAILY NEEDED FOR WHEEZE 0 06/07/2023 Active Combivent Respimat 20-100 MCG/ACT inhaler INHALE 2 PUFFS INTO THE LUNGS EVERY 6 HOURS NEEDED (WHEEZING) FOR UP TO 30 DAYS. 0 05/18/2023 Active loratadine (CLARITIN) 10 MG tablet Take 1 tablet (10 mg total) by mouth daily. 0 05/30/2023 Active montelukast (SINGULAIR) 10 MG tablet TAKE 1 TABLET BY MOUTH AT BEDTIME FOR 360 DAYS. 0 05/08/2023 Active omeprazole (PriLOSEC) 40 MG capsule Take 1 capsule (40 mg total) by mouth daily. 0 11/06/2022 Active Tezspire 210 MG/1.91ML SOSY 0 05/12/2023 Active Tiotropium Wellington Monohydrate (Spiriva Respimat) 1.25 MCG/ACT AERS Inhale 2.5 mcg into the lungs. 0 03/03/2023 Active Active Problems No known active problems Social History Tobacco Use Types Packs/Day Years Used Date Smoking Tobacco: Never Smokeless Tobacco: Never Tobacco Cessation:Counseling Given: Not Answered Alcohol Use Standard Drinks/Week Comments Never 0 (1 standard drink = 0.6 oz pur e alcohol) Sex and Gender Information Value Date Recorded Sex Assigned at Not on file Gender Identity Not on file Sexual Orientation Not on file Job Start Date Occupation Industry Not on file Not on file Not on file Last Filed Vital Signs Vital Sign Reading Time Taken Comments Blood Pressure 126/63 06/19/2023 11:53 AM EDT Pulse 78 06/19/2023 11:53 AM EDT Temperature 36.1 ??C (97 ??F) 06/19/2023 11:53 AM EDT Respiratory Rate - - Oxygen Saturation 98% 06/19/2023 11:53 AM EDT Inhaled Oxygen Concentration - - Weight 92.1 kg (203 lb) 06/19/2023 11:53 AM EDT Height - - Body Mass Index - - Plan of Treatment Health Maintenance Due Date Last Done Comments Hepatitis B Vaccines (1 of 3 - 3-dose series) 1968 Hepatitis C Screening 1968 Depression Screening 1980 Preventative Health Evaluation 1986 Cervical Cancer Screening (Pap Smear) 1989 Colon Cancer Screening (Colonoscopy) 2013 Breast Cancer Screening (Mammogram) 2018 DTap / Tdap / Td (3 - Td or Tdap) 03/07/2023 03/07/2013, 04/11/2009 COVID-19 Vaccine ( season) 2024 10/28/2021, 11/13/2020, 10/16/2020 Influenza Vaccine (#1) 2024 2, 05/24/2021, 04/24/2020, Additional history exists Pneumococcal Vaccine Aged Out 10/03/2015 No long er eligible based on patient's age to complete this topic Shingrix-Zoster Vaccine Completed 02/16/2021, 07/11 RSV Ped < 20 months Aged Out No longe r eligible based on patient's age to complete this topic Care Teams Electronic Data Processing Auditor Relationship Specialty Start Date End Date Gt Prescott MD PCP - General Internal Medicine 05/28/23
--- OUTSIDE RECORDS SUMMARY | 2024-12-06 11:58 | XMS_ITS | Encounter Summary ---
Author Organization [employer] [facility] Address [address] [facility] [address] [facility] 7t [place] [address] Care Team Providers Care Psych Specialist Name Role Phone Unavailable Primary Care Provider Unavailabl e Reason for Visit * Reason Comments Med Refill Encounter Details Date Type Department Care Team (Late st Contact Info) Description 09/30/2022 Refill [facility] ADULT DENT[facility] [address] [place] [address] Alexus Haney DDS [address] [place], [place] [phone] Pain (Primary Dx) Social History Tobacco Use Types Packs/Day Years [...] Miscellaneous Notes * Telephone Encounter - Alexus Haney DDS - 09/30/2022 12:50 PM EST Approving, but needs appt for additional refills. * Telephone Encounter - Alexus Haney DDS - 09/30/2022 11:43 AM EST Approving, but needs appt for additional refills. documented in this encounter Plan of Treatment Upcoming Encounters Date Type Department Care Team (Late st Contact Info) Description 12/28/2024 9:30 AM EDT Office Visit [facility] ADULT [facility] [address] [place] [address] Vinicio Quintero DDS [address] [place] [address] 01/17/2025 9:00 AM EDT Office Visit [facility] ADULT [facility] [address] [place] [address] Melissa Abreu [address] [place] [address] documented as of this encounter Visit Diagnoses Diagnosis Pain- Primary Generalized pain documented in this encounter
--- OUTSIDE RECORDS SUMMARY | 2024-12-06 11:58 | XMS_ITS | Encounter Summary ---
Author Organization [facility] Address [address] [facility] 7t [place] [address] Care Team Providers Care Recreation Activities Coordinator Name Role Phone Unavailable Primary Care Provider Unavailabl e Encounter Details Date Type Department Care Team (Latest Contact Info) Description 06/25/2021 Abstract [facility] Dental, Provider, DDS Social History Tobacco Use Types Packs/Day Years [...] Description 12/28/2024 9:30 AM EDT Office Visit [facility] ADULT DENTAL [address] [place] [address] Vinicio Quintero DDS [address] [place] [address] 01/17/2025 9:00 AM EDT Office Visit [facility] ADULT DENTAL [address] [place] [address] Brady, Melissa [address] [place] [address] documented as of this encounter Visit Diagnoses Not on filedocumented in this encounter
--- OUTSIDE RECORDS SUMMARY | 2024-12-06 11:58 | XMS_ITS | Encounter Summary ---
Author Organization [employer] [facility] Address [address] [facility] 7t [place] [address] Care Team Providers Care Tar Chaser Name Role Phone Unavailable Primary Care Provider Unavailabl e Reason for Visit * Reason Comments Med Refill Encounter Details Date Type Department Care Team (Late st Contact Info) Description 06/24/2023 Refill [facility] ADULT DENTAL [address] [place] [address] Alexus Haney DDS [address] [place] [address] Encounter for dental examination Social History Tobacco [...] Encounter - Miguel Ángel Chong DMD - 06/24/2023 8:07 AM EDT Approving, but needs appt for additional refills. documented in this encounter Plan of Treatment Upcoming Encounters Date Type Department Care Team (Late st Contact Info) Description 12/28/2024 9:30 AM EDT Office Visit [facility] ADULT DENT[facility] [address] [place] [address] Vinicio Quintero DDS [address] [place] [address] 01/17/2025 9:00 AM EDT Office Visit [facility] ADULT DENT[facility] [address] [place] [address] Melissa Abreu [address] [place] [address] documented as of this encounter Visit Diagnoses Diagnosis Encounter for dental examination documented in this encounter
--- OUTSIDE RECORDS SUMMARY | 2024-12-06 11:58 | XMS_ITS | Encounter Summary ---
Author Organization [employer] [facility] Address [address] [facility] 7 [place] [address] Care Team Providers Care Rn Dermatology Name Role Phone Unavailable Primary Care Provider Unavailabl e Encounter Details Date Type Department Care Team (Late st Contact Info) Description 04/28/2023 Abstract [facility] ADULT DENTAL [address] [place] [address] Alexus Haney DDS [address] [place], [place] [phone] Social History Tobacco Use Types Packs/Day Years [...] Description 12/28/2024 9:30 AM EDT Office Visit [facility] ADULT D[facility] [address] [place] [address] Vinicio Quintero, DDS [address] [place] [address] 01/17/2025 9:00 AM EDT Office Visit [facility] ADULT [facility] [address] [place] [address] Melissa Abreu [address] [place] [address] documented as of this encounter Visit Diagnoses Not on filedocumented in this encounter
--- OUTSIDE RECORDS SUMMARY | 2024-12-06 11:58 | XMS_ITS | Encounter Summary ---
Author Organization [facility] Address [address] [place] [address] Care Team Providers Care Last Inserter Name Role Phone Gt Prescott MD Primary Care Provider [phone] Encounter Details Date Type Department Care Team (Late st Contact Info) Description 06/24/2024 2:30 PM EDT Hospital Encounter TH [facility]OR[facility] ENCOUNTERS [facility] ONLY Manny Leos MD [address] [place] [phone] Social History Tobacco Use Types Packs/Day Years [...] Encounters Date Type Department Care Team (Late Contact Info) Description 01/03/2025 8:30 AM EDT Office Visit Adult Medicine [address] [phone] Donte Patterson PA [address] [place] [address] 02/28/2025 8:00 AM EDT Office Visit [facility] [place] [address] [place] [address] Mitch Mckinney MD [address] [place] [address] 06/02/2025 9:00 AM EDT Office Visit [facility] [place] [address] [place] [phone] Leena Obrien PA [address] [place] [address] documented as of this encounter Goals Goal Patient Goal Type Associated Problems Recent Progress Patient-Stated? Author Pt goal General On track(07/04/20 1:42 PM EST) Yes Rosa Sánchez, OT Note: Use LUE for activity again st visits General On track(08/11/20 3:52 PM EST) Yes Rosa Sánchze, OT Note: 1, Indep Phase 2 HEP [...] on filedocumented in this encounter Care Teams Last Inserter Relationship Specialty Start Date End Date Gt Prescott MD [address] [place] [id number] PCP - General Internal Medicine 02/21/20 documented as of this encounter
--- OUTSIDE RECORDS SUMMARY | 2024-12-06 11:58 | XMS_ITS | Encounter Summary ---
Author Organization [employer] [facility] Address [address] 7 [place] [address] Care Team Providers Care Certified Maintenance Welder Name Role Phone Unavailable Primary Care Provider Unavailabl e Encounter Details Date Type Department Care Team (Late st Contact Info) Description 04/28/2023 Abstract [facility] ADULT DENTAL [address] [place] [address] Alexus Haney DDS [address] [place], [place] [phone] Social History Tobacco Use Types Packs/Day Years [...] Description 12/28/2024 9:30 AM EDT Office Visit [facility] ADULT DENT[facility] [address] [place] [address] Vinicio Quintero, DDS [address] [place] [address] 01/17/2025 9:00 AM EDT Office Visit [facility] ADULT DENTAL [address] [place] [address] Melissa Abreu [address] [place] [address] documented as of this encounter Visit Diagnoses Not on filedocumented in this encounter
--- OUTSIDE RECORDS SUMMARY | 2024-12-06 11:58 | XMS_ITS | Encounter Summary ---
Author Organization [employer] [facility] Address [address] [facility] 7t [place] [address] Care Team Providers Care Blood Collector Name Role Phone Unavailable Primary Care Provider Unavailabl e Encounter Details Date Type Department Care Team (Latest Contact Info) Description 08/21/2020 Abstract [facility] Dental, Provider, DDS Social History [...] Description 12/28/2024 9:30 AM EDT Office Visit [facility] ADULT [facility] [address] [place] [address] Vinicio Quintero DDS [address] [place] [address] 01/17/2025 9:00 AM EDT Office Visit [facility]ULT [facility] [address] [place] [address] Brady, Melissa [address] [place] [address] documented as of this encounter Visit Diagnoses Not on filedocumented in this encounter
--- OUTSIDE RECORDS SUMMARY | 2024-12-06 11:58 | XMS_ITS | Encounter Summary ---
Author Organization [employer] Address [address] 7t [place] [address] Care Team Providers Care Switchboard Wirer Name Role Phone Unavailable Primary Care Provider Unavailabl e Reason for Visit * Reason Onset Date Comments crown fell off 04/06/2023 Encounter Details Date Type Department Care Team (Late st Contact Info) Description 04/06/2023 Telephone [facility] ADULT DENTAL [address] [place], [place] [phone] Alexus Haney DDS [address] [place], [place] [phone] crown fell off Social History Tobacco Use Types Packs/Day Years [...] encounter Miscellaneous Notes * Telephone Encounter - Carlota Chacko - 04/06/2023 3:08 PM EDT Patient has an appt on 04/16 for crown delivery but her temp crown fell off again. Checking to see if this is something another provider can take care of or does patient have to wait for Dr. Arceo to return?? documented in this encounter Plan of Treatment Upcoming Encounters Date Type Department Care Team (Late st Contact Info) Description 12/28/2024 9:30 AM EDT Office Visit [facility] ADULT DENT[facility] [address] [place] [address] Vinicio Quintero DDS [address] [place] [address] 01/17/2025 9:00 AM EDT Office Visit [facility] ADULT DENTAL [address] [place] [address] Melissa Abreu [address] [place] [address] documented as of this encounter Visit Diagnoses Not on filedocumented in this encounter
--- OUTSIDE RECORDS SUMMARY | 2024-12-06 11:58 | XMS_ITS | Encounter Summary ---
Author Organization [employer] [facility] Address [address] [facility] 7t [place] [address] Care Team Providers Care Plastic Surgery Coordinator Name Role Phone Unavailable Primary Care Provider Unavailabl e Encounter Details Date Type Department Care Team (Latest Contact Info) Description 04/15/2019 Abstract [facility] Dental, Provider, DDS Social History [...] Description 12/28/2024 9:30 AM EDT Office Visit [facility] ADULT DENTAL [address] [place] [address] Vinicio Quintero DDS [address] [place] [address] 01/17/2025 9:00 AM EDT Office Visit [facility] ADULT DENTAL [address] [place] [address] Brady, Melissa [address] [place] [address] documented as of this encounter Visit Diagnoses Not on filedocumented in this encounter
--- OUTSIDE RECORDS SUMMARY | 2024-12-06 11:58 | XMS_ITS | Encounter Summary ---
Author Organization [facility] [facility] Address [address] [facility] 7t [place] [address] Care Team Providers Care Operations Coordinator Name Role Phone Unavailable Primary Care Provider Unavailabl e Reason for Visit * Reason Comments Med Refill Encounter Details Date Type Department Care Team (Late st Contact Info) Description 09/24/2023 Refill [facility] ADULT DENTAL [address] [place] [address] Alexus Haney DDS [address] [place] [address] Encounter for dental examination Social History Tobacco [...] Encounter - Miguel Ángel Chong DMD - 09/24/2023 7:59 AM EST Approving, but needs appt for additional refills. documented in this encounter Plan of Treatment Upcoming Encounters Date Type Department Care Team (Late st Contact Info) Description 12/28/2024 9:30 AM EDT Office Visit [facility] ADULT DENTAL [address] [place] [address] Vinicio Quintero DDS [address] [place] [address] 01/17/2025 9:00 AM EDT Office Visit [facility] ADULT DENT[facility] [address] [place] [address] Melissa Abreu [address] [place] [address] documented as of this encounter Visit Diagnoses Diagnosis Encounter for dental examination documented in this encounter
--- OUTSIDE RECORDS SUMMARY | 2024-12-06 11:59 | XMS_ITS | Clinical Summary ---
Author Organization [facility] [facility] Address [address] [place] [address] Care Team Providers Care Office 365 Consultant Name Role Phone Unavailable Primary Care Provider Unavailabl e Allergies Active Allergy Reactions Criticality Noted Date Comments Cat Dander Itching,Shortness of breath High 07/08/2010 Dog Epithelium Itching,Shortness of breath High 09/29/2023 Dust Mite Extract Itching,Shortness of breath High 09/29/2023 Gramineae Pollens 11/25/2010 Latex Itching,Rash High 11/30/2006 Other reaction(s): RASH Molds & Smuts Itching,Shortness of breath High 08/13/2010 Wound Dressings Rash Low 09/29/2023 Medications Eliquis 5 MG tablet Take 5 mg by mouth 2 times daily. 11/03/19 23 Active albuterol (2.5 MG/3ML) 0.083% nebulizer solution albuterol sulfate 2.5 mg/3 mL (0.083 %) solution for nebulization Active Azelastine HCl 137 MCG/SPRAY solution 11/07/19 23 Active betamethasone dipropionate 0.05 % cream betamethasone dipropionate 0.05 % topical cream Active budesonide (Pulmicort) 1 MG/2ML nebulizer solution 2 mL at bed time. Ac tive buPROPion XL (Wellbutrin XL) 150 MG 24 hr tablet 11/15/19 23 Active calcium citrate 200 MG tablet Take 1 tablet by mouth in the morning. 01/01/20 22 Active D3-1000 25 MCG (1000 UT) capsule Take 25 mcg by mouth in the morning. 11/03/19 23 Active collagenase (Santyl) 250 UNIT/GM ointment Santyl 250 unit/gram topical ointment Active EPINEPHrine (Epipen) 0.3 MG/0.3ML injection syringe epinephrine 0.3 mg/0.3 mL injection, auto-injector INJECT 1 DEVICE (0.3 MG) NEEDED FOR ANAPHYLAXIS THEN CALL 911. Active Advair HFA 230-21 MCG/ACT inhaler TAKE 1 PUFF BY MOUTH TWICE A DAY 09/27/19 23 Active fluticasone-salm eterol (AirDuo RespiClick) 232-14 MCG/ACT inhaler fluticasone 232 mcg-salmeterol 14 mcg/actuation breath activated powdr Active folic acid (Folvite) 1 MG tablet Take 1,000 mcg by mouth in the morning. 10/04/19 23 Active hydrOXYzine HCl (Atarax) 25 MG tablet hydroxyzine HCl 25 mg tablet TAKE 1 TABLET BY MOUTH EVERY 8 HOURS NEEDED FOR ITCHING Active ibuprofen 800 MG tablet ibuprofen 800 mg tablet TAKE 1 TABLET BY MOUTH EVERY 8 HOURS NEEDED FOR PAIN 11/28/19 Active ipratropium (Atrovent) 0.02 % nebulizer solution USE 1 VIAL VIA NEBULIZER 4 TIMES DAILY NEEDED FOR WHEEZE 10/16/19 23 Active ipratropium-albu terol (Duo-Neb) 0.5-2.5 mg/3 mL nebulizer solution ipratropium 0.5 mg-albuterol 3 mg (2.5 mg base)/3 mL nebulization soln Active ketotifen (Zaditor) 0.025 % ophthalmic solution ketotifen 0.025 % (0.035 %) eye drops INSTILL 1 DROP TWICE A DAY BY OPHTHALMIC ROUTE NEEDED. Active loratadine (Claritin) 10 MG tablet loratadine 10 mg tablet TAKE 1 TABLET BY MOUTH EVERY DAY Active montelukast (Singulair) 10 MG tablet Take 10 mg by mouth at bedtime. 11/03/19 23 Active mupirocin (Bactroban) 2 % ointment mupirocin 2 % topical ointment APPLY A SMALL AMOUNT TO THE AFFECTED AREA BY TOPICAL ROUTE 3 TIMES PER DAY Active naltrexone (Depade) 50 MG tablet 11/20/19 23 Active omeprazole (PriLOSEC) [address] capsule 11/07/19 23 Active Spiriva Respimat 1.25 MCG/ACT inhaler INHALE 2.5 MCG INTO THE LUNGS DAILY FOR 90 DAYS. 09/08/19 23 Active Acetaminophen Extra Strength 500 MG tabletIndication s:Pain TAKE 1 TABLET BY ORAL ROUTE EVERY 4 - 6 HOURS NEEDED NOT TO EXCEED 8 TABLETS PER 24HRS 15 tablet 11/27/19 23 Active amoxicillin (Amoxil) 500 MG capsule Take 4 capsules of amoxicillin 500 mg 1 hour prior dental procedure 12 capsule 01/29/20 23 Active amoxicillin (Amoxil) 500 MG capsule Take 4 capsules of amoxicillin 500 mg 1 hour prior dental procedure 12 capsule 03/11/20 23 Active amoxicillin (Amoxil) 500 MG capsule Take 4 capsules of amoxicillin 500 mg 1 hour prior dental procedure 12 capsule 12/23/19 24 Active amoxicillin (Amoxil) 500 MG capsule Take 4 capsules of amoxicillin 500 mg 1 hour prior dental procedure 12 capsule 03/02/20 24 Active cefuroxime (Ceftin) 250 MG tablet 250 mg. 03/15/20 24 Active doxycycline (Vibra-Tabs) 100 MG tablet TAKE 1 TABLET BY MOUTH TWICE A DAY X10 DAYS 03/15/20 24 Active amoxicillin (Amoxil) 500 MG capsule Take 4 capsules of amoxicillin 500 mg 1 hour prior dental procedure 12 capsule 05/26/20 24 Active chlorhexidine (Peridex) 0.12 % solution USE 15 ML IN THE MOUTH OR THROAT IF NEEDED IN THE MORNING, AT NOON, AND AT BEDTIME (PROPHYLAXIS) FOR UP TO 5 DAYS. SPIT OUT, DO NOT SWALLOW. 473 mL 06/07/20 24 Active Denta 5000 Plus 1.1 % creamIndications :Encounter for dental examination APPLY A PEA SIZE AMOUNT ON TOOTHBRUSH, BRUSH TEETH THREE TIMES A DAY 153 g 07/26/20 24 Active amoxicillin (Amoxil) 500 MG capsule Take 4 capsules of amoxicillin 500 mg 1 hour prior dental procedure 12 capsule 10/11/19 25 Active amoxicillin (Amoxil) 500 MG capsule Take 1 capsule (500 mg) by mouth every 8 (eight) hours for 7 days. 21 capsule 11/15/19 25 025 acetaminophen (Tylenol 8 Hour) 650 MG ER tablet Take 1 tablet (650 mg) by mouth every 8 (eight) hours if needed for moderate pain for up to 10 days. Do not crush, chew, or split. 15 tablet 11/15/19 25 025 ibuprofen 600 MG tablet Take 1 tablet (600 mg) by mouth every 6 (six) hours if needed for mild pain for up to 10 days. 15 tablet 11/15/19 25 025 Active Problems Problem Noted Date Diagnosed Date Status post shoulder replacement, left 4 Closed fracture of tooth 06/24/2024 Class 1 obesity 03/14/2024 Class 2 obesity 03/14/2024 Failing root canal 09/29/2023 Aneurysm of internal carotid artery 05/12/2023 Overview (07/12/2024): Last Assessment & Plan: Patient was referred for MRA/MRV brain 03/09/2023 findings that showed a small 2 mm right internal carotid artery aneurysm, cavernous portion of the right ICA. No other aneurysms noted. Patient has family history of aneurysms on both side of the family, states her mom had a ruptured brain aneurysm >1-year ago, has some complications afterward, was mostly bedbound, had C. difficile infection x2, ultimately passed about a year after the aneurysm ruptured. Patient has no history of nicotine use. Denies headaches or weakness. She states she lives with chronic pain throughout her body, has arthritis, has seen physicians in the past for her low back pain and neck pain, no surgery was recommended, has gone to pain management for injections. Patient has a small 2 mm right internal carotid artery aneurysm (cavernous portion), I had reviewed her films with Dr. Earl and she states patient will not require any intervention for this aneurysm, because of its location it is in a contained space, if it were to grow/rupture she would not suffer from subarachnoid hemorrhage. I talked the patient about making sure she has good blood pressure, not to start any nicotine products in the future. If she has any headaches, questions or concerns, I asked her to call the office. All questions answered on today's visit. Dental caries 12/18/2022 Gingival recession, generalized 11/21/2022 Dental plaque 11/21/2022 Gingival bleeding 11/21/2022 Left carpal tunnel syndrome 11/10/2022 Right carpal tunnel syndrome 11/10/2022 Pulmonary embolism 07/15/2022 Prediabetes 02/04/2022 PLMD (periodic limb movement disorder) 9 Acquired pes planus of right foot 05/31/2019 Overview (07/12/2024): Surgery by Dr. 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 Treatment study ordered due to intolerance in the past. If insurance declines, will trial CPAP autoset instead. [facility] Polysomnogram treatment study. Date 03/22/2017. SE 87 % SM 91 %; spent 27 % of the study in REM. At the optimal pressure of 9; RDI 2 (AHI 2), Central apneas 2; Obstructive apneas 0; Mixed apneas 0; hypopneas 0; RERAs 0; and, average oxygen saturation was 92%. For the entire study, PLMs ~36. [facility] Polysomnogram: Date 08/11/2019; Wt 200#; BMI 38; SE 74%; SM 80%; REM 17%; RDI 12 (AHI 9), REM (RDI 20 - AHI 20), Central apneas 5; Obstructive apneas 0; Mixed apneas 0; hypopneas 47; RERAs 17; average oxygen saturation 93% (lowest 88% - without saturations <88% for 5% or more of study); PLMs 26. Prestudy ESS 13; 3/4 RLS symptoms. - Obstructive Sleep Apnea - mild; mostly hypopneas; without sleep related hypoventilation by 2018 polysomnogram. Low back pain without sciatica 03/05/2016 Overview (07/12/2024): Follows with pain management. She is status post cortisone injection with relief. Diverticulosis 10/30/2014 GERD (gastroesophageal reflux disease) 0 Shoulder joint replacement status Encounters Date Type Department Care Team Description 11/14/2024 1:00 PM EDT Office Visit [facility] [address] [place] [address] Pisano-Arceo, Alexus, DDS Extensive root caries lesions involving dentin (Primary Dx) 10/11/2024 8:00 AM EST Office Visit [facility] [address] [place] [address] Pisano-Arceo, Alexus, DDS Recurrent dental caries extending into dentin (Primary Dx); Localized gingival recession; Open fracture of tooth, initial encounter from Last 3 Months Immunizations Name Administration Dates Next Due INFLUENZA INJECTABLE QUADRIV ALANT CCIIV4 MDCK Multi-dose vial 04/30/2018 Influenza Injectable Quadriv alant Preservative Free IIV4 MDCK 07/10/2022,05/24/2021 Influenza injectable quadriv alent preservative free 04/24/2020,10/03/2019 Influenza, IIV3, injectable 07/29/2016,1 ,05/30/2014,06/06,05/25/2012,07/03/2011,07/10/2010 ,08/07/2008,07/09/2007,08/13/2005 Moderna Covid-19 Vaccine 12+ 10/28/2021,11/14/19 21,10/16/2020 Moderna Covid-19 Vaccine 6+ Bivalent 07/09/2022 Pneumococcal Polysaccharide PPSV23 10/03/2015 TD (adult), 2 Lf tetanus tox oid, preservative free, adsorbed 04/11/2009 Tdap 03/07/2013 Zoster, Recombinant 02/16/2021,07/11/2020 Social History Tobacco Use Types Packs/Day Years [...] not to disclose 2021 10:16 AM EDT Last Filed Vital Signs Vital Sign Reading Time Taken Comments Blood Pressure 128/80 11/14/2024 1:00 PM EDT Pulse 82 12/23/2023 8:18 AM EDT Temperature - - Respiratory Rate - - Oxygen Saturation - - Inhaled Oxygen Concentration - - Weight - - Height - - Body Mass Index - - Plan of Treatment Upcoming Encounters Date Type Department Care Team (Late st Contact Info) Description 12/28/2024 9:30 AM EDT Office Visit [facility] [address] [place] [address] Vinicio Quintero DDS [address] [place] [address] 01/17/2025 9:00 AM EDT Office Visit [facility] [address] [place] [address] Melissa Abreu [address] [place] [address] Health Maintenance Due Date Last Done Comments CT Colonography 1968 Colonoscopy 1968 Colorectal Cancer Screening 1968 Depression Screening 1968 Diabetes: Hemoglobin A1C 1968 FIT DNA/Cologuard 1968 FIT 1968 FOBT 1968 HIV Screening 1968 Lipid Panel 1968 SDOH Screening 1968 Sigmoidoscopy 1968 Alcohol/Substance Use Screening 1980 Hepatitis C Screening 1986 Hepatitis B Vaccines (1 of 3 - 19+ 3-dose series) 1987 Pap Smear 1989 Cervical Cancer Screening 1998 HPV/Cotest 1998 Mammogram 2008 Pneumococcal Vaccine: 50+ Years (2 of 2 - PCV) 10/03/2016 10/03/2015 COVID-19 Vaccine ( - season) 2024 07/09/2022, 10/28/2021, 11/13/2020, Additional history exists Influenza Vaccine (#1) 2024 3, 07/10/2022, 05/24/2021, Additional history exists Dental X-Ray: Full Mouth 06/26/2024 06/25/2021 Dental Oral Exam 01/10/2025 07/12/2024, 10/07/2022 Dental Prophylaxis 01/16/2025 07/18/2024, 0 12/23/2023, 11/21/2022 Tobacco Screening 11/14/2025 11/14/2024 Dental X-Ray: Bitewings 11/15/2025 11/15/19, 10/11/2024, 07/12/2024, Additional history exists DTaP/Tdap/Td Vaccines (4 - Td or Tdap) 11/04/2034 11/04/2024, 11/03/2023, 03/07/2013, Additional history exists RSV Patients and Patients Aged 60 years or older (1 - 1-dose 75+ series) 2043 Zoster Vaccines Completed 02/16/2021, 07/11/2020 HIB Vaccines Aged Out No longer eligi ble based on patient's age to complete this topic HPV Vaccines Aged Out No longer eligi ble based on patient's age to complete this topic Hepatitis A Vaccines Aged Out No long er eligible based on patient's age to complete this topic IPV Vaccines Aged Out No longer eligi ble based on patient's age to complete this topic Meningococcal Vaccine Aged Out No arlette solomon eligible based on patient's age to complete this topic RSV under 20 months Aged Out No longe r eligible based on patient's age to complete this topic Rotavirus Vaccines Aged Out No longer eligible based on patient's age to complete this topic Procedures Procedure Name Priority Date/Time Associated Diagnosis Comments CASE PRESENTATION, DETAILED AND EXTENSIVE TREATMENT PLANNING Routine 11/14/2024 1:00 PM EDT BITEWING - SINGLE RADIOGRAPHIC IMAGE Routine 11/14/2024 1:00 PM EDT INTRAORAL - PERIAPICAL FIRST RADIOGRAPHIC IMAGE Routine 11/14/2024 1:00 PM EDT PALLIATIVE (EMERGENCY) TREATMENT OF DENTAL PAIN - MINOR PROCEDURE Routine 11/14/2024 1:00 PM EDT BITEWING - SINGLE RADIOGRAPHIC IMAGE Routine 10/11/2024 8:00 AM EST Recurrent dental caries extending into dentin Localized gingival recession INTRAORAL - PERIAPICAL FIRST RADIOGRAPHIC IMAGE Routine 10/11/2024 8:00 AM EST Recurrent dental caries extending into dentin Localized gingival recession CASE PRESENTATION, DETAILED AND EXTENSIVE TREATMENT PLANNING Routine 10/11/2024 8:00 AM EST Recurrent dental caries extending into dentin Localized gingival recession LIMITED ORAL EVALUATION - PROBLEM FOCUSED Routine 10/11/2024 8:00 AM EST Recurrent dental caries extending into dentin Localized gingival recession 10 FF(V) RESIN-BASED COMPOSITE - 1 SURF, ANTERIOR Routine 10/11/2024 8:00 AM EST Recurrent dental caries extending into dentin Localized gingival recession PROPHYLAXIS - ADULT Routine 07/18/2024 1 1:00 AM EST Dental plaque PERIODIC ORAL EVALUATION - ESTABLISHED PATIENT Routine 07/12/2024 10:00 AM EST Encounter for dental examination Dental caries Need for full coverage dental crown from Last 3 Months or Most Recently Relevant to Health Maintenance Insurance [facility] MEDICA[facility] STAND ADULT
--- OUTSIDE RECORDS SUMMARY | 2024-12-06 11:59 | XMS_ITS | Encounter Summary ---
Author Organization [employer] Address [address] [place] [address] Care Team Providers Care Food Service Employee Name Role Phone Unavailable Primary Care Provider Unavailabl e Reason for Visit * Reason Onset Date Comments appt 01/19/2024 Encounter Details Date Type Department Care Team (Late st Contact Info) Description 01/19/2024 Telephone [facility] [address] [place], [place] [phone] Alexus Haney, DDS [address] [place], [place] [phone] appt Social History Tobacco Use Types Packs/Day Years [...] * Telephone Encounter - Carlota Chacko - 01/19/2024 9:22 AM EDT Patient on active request since 09/2023 and is looking for appt for her filling. She states food isgetting stuck in that tooth. Informed patient I would get information over to office. No pain no swelling just stuck food in hole in tooth that creates discomfort documented in this encounter Plan of Treatment Upcoming Encounters Date Type Department Care Team (Late st Contact Info) Description 12/28/2024 9:30 AM EDT Office Visit [facility] [address] [facility] [place] [address] Vinicio Quintero DDS [address] [place] [address] 01/17/2025 9:00 AM EDT Office Visit [facility] [address] [place], [place] [phone] Melissa Abreu [address] [place] [address] documented as of this encounter Visit Diagnoses Not on filedocumented in this encounter
--- OUTSIDE RECORDS SUMMARY | 2024-12-06 11:59 | XMS_ITS | Encounter Summary ---
Author Organization [employer] [facility] Address [address] [place] [address] [address] [place] [address] Care Team Providers Care Certified Surgical Technician Name Role Phone Unavailable Primary Care Provider Unavailabl e Reason for Visit * Reason Comments Med Refill Encounter Details Date Type Department Care Team (Late st Contact Info) Description 06/06/2024 Refill [facility] [address] [place], [place] [phone] Miguel Ángel Chong DMD [address] [place], [place] [phone] Encounter for dental examination Social History Tobacco Use Types Packs/Day Years Used Date Smoking Tobacco: Never Smokeless Tobacco: Never Alcohol Use Standard Drinks/Week Comments Never 0 [...] Encounter - Miguel Ángel Chong DMD - 06/07/2024 7:51 AM EDT Approving, but needs appt for additional refills. documented in this encounter Plan of Treatment Upcoming Encounters Date Type Department Care Team (Late st Contact Info) Description 12/28/2024 9:30 AM EDT Office Visit [facility] [address] [place] [address] Vinicio Quintero DDS [address] [place], [place] [phone] 01/17/2025 9:00 AM EDT Office Visit [facility] [address] [place] [address] Melissa Abreu [address] [place] [address] documented as of this encounter Visit Diagnoses Diagnosis Encounter for dental examination documented in this encounter
--- OUTSIDE RECORDS SUMMARY | 2024-12-06 11:59 | XMS_ITS | Clinical Summary ---
Author Organization [facility] Location Address [address] [place] [address] Phone Care Team Providers Care Stove Refinisher Name Role Phone Gt Prescott MD Primary Care Provider [phone] Allergies Active Allergy Reactions Criticality Noted Date Comments Cat Dander 07/08/2010 Latex Itching,Rash High 11/30/2006 Mold 08/13/2010 Pollen Extracts 11/25/2010 Medications acetaminophen (TYLENOL) 500 mg tablet Take 1 tablet (500 mg total) by mouth 3 (three) times a day if needed for mild pain. 023 Active azelastine (ASTELIN) 137 mcg (0.1 %) nasal spray Administer 2 sprays into each nostril 2 (two) times a day. 023 Active clotrimazole-be tamethasone (LOTRISONE) 1-0.05 % cream Apply topically 2 (two) times a day. For 7-10 days 023 Active EPINEPHrine (EpiPen 2-Alexis) 0.3 mg/0.3 mL injection Inject 0.3 mL (0.3 mg total) as directed if needed for anaphylaxis. 021 Active fluticasone propion-salmete roL (Advair HFA) 230-21 mcg/actuation inhaler Inhale 1 puff by mouth 2 (two) times a day. 023 Active FREESTYLE LANCETS MISC 1 Lancet by extracorporeal route 1 (one) time each day. 023 Active blood sugar diagnostic (FreeStyle Lite Strips) test strip 1 Lancet by extracorporeal route 2 (two) times a day. 024 Active hydrOXYzine HCL (ATARAX) 25 mg tablet Take 1 tablet (25 mg total) by mouth every 8 (eight) hours if needed for itching. 023 Active ipratropium (ATROVENT) 0.02 % nebulizer solution Take 2.5 mL (0.5 mg total) by nebulization 4 (four) times a day if needed. wheeze 023 Active ipratropium-alb uteroL (Combivent Respimat) 20-100 mcg/actuation inhaler Inhale 1 puff by mouth every 6 (six) hours if needed for wheezing. ) for up to 30 days 023 Active omeprazole (PriLOSEC) [address] capsule Take 1 capsule (40 mg total) by mouth 1 (one) time each day. 023 Active predniSONE (DELTASONE) 20 mg tablet Take by mouth. pred taper 60mg x 3 days 40mg x 3 days 20mg x 3 day 024 Active tiotropium (Spiriva Respimat) 1.25 mcg/actuation inhalation spray Inhale 2 puffs by mouth 1 (one) time each day. 024 Active tezepelumab-ekk o (Tezspire) Inject 1.91 mL (210 mg total) under the skin. 023 Active triamcinolone (KENALOG) 0.1 % cream Apply topically 1 (one) time each day. x2 weeks. 024 Active ibuprofen (ADVIL,MOTRIN) 800 mg tablet Take 1 tablet (800 mg total) by mouth every 8 (eight) hours if needed for mild pain. For 30 days 023 Active montelukast (SINGULAIR) 10 mg tabletIndicatio ns:Severe persistent asthma, unspecified whether complicated (CMS/HCC V28) TAKE 1 TABLET BY MOUTH AT BEDTIME FOR 360 DAYS. 90 tablet 3 024 Active Vitamin D3 25 mcg (1,000 unit) capsule TAKE 1 CAPSULE BY MOUTH EVERY DAY 90 capsule 1 025 Active calcium citrate (CALCITRATE) 950 mg (200 mg elemental calcium) tabletIndicatio ns:Obstructive sleep apnea (adult) (pediatric),Sev ere persistent asthma with (acute) exacerbation (CMS/FORMERLY [facility] V28) TAKE 1 TABLET BY MOUTH EVERY DAY 90 tablet 025 Active naltrexone (DEPADE) 50 mg tabletIndicatio ns:Class 1 obesity due to excess calories with body mass index (BMI) of 30.0 to 30.9 in adult, unspecified whether serious comorbidity present Take 1 tablet (50 mg total) by mouth 1 (one) time each day. For 30 days 30 each 2 025 2024 Active buPROPion XL (Wellbutrin XL) 300 mg 24 hr tabletIndicatio ns:Class 1 obesity due to excess calories with body mass index (BMI) of 30.0 to 30.9 in adult, unspecified whether serious comorbidity present Take 1 tablet (300 mg total) by mouth 1 (one) time each day. Do not crush, chew, or split. 30 each 2 025 2024 Active folic acid (FOLVITE) 1 mg tablet TAKE 1 TABLET BY MOUTH EVERY DAY 90 tablet 1 025 Active loratadine (CLARITIN) 10 mg tablet TAKE 1 TABLET BY MOUTH EVERY DAY 90 tablet 1 025 Active folic acid (FOLVITE) 1 mg tablet Take 1 tablet (1,000 mcg total) by mouth 1 (one) time each day. 023 2024 Discontinued loratadine (CLARITIN) 10 mg tablet Take 1 tablet (10 mg total) by mouth 1 (one) time each day. 023 2024 Discontinued Active Problems Problem Noted Date Diagnosed Date S/P reverse total shoulder arthroplasty, left Aneurysm of internal carotid artery 05/12/2023 Overview (05/26/2024): Last Assessment & Plan: Patient was referred [...] answered on today's visit. Dental caries 12/18/2022 Dental plaque 11/21/2022 Gingival bleeding 11/21/2022 Gingival recession, generalized 11/21/2022 Left carpal tunnel syndrome 11/10/2022 Right carpal tunnel syndrome 11/10/2022 Pulmonary embolism (CMS/HCC V24, CMS/HCC V28) Prediabetes 02/04/2022 PLMD (periodic limb movement disorder) 9 Acquired pes planus of right foot 05/31/2019 Overview (05/26/2024): Surgery by Dr. Batres, 05/20/2019 Obesity (BMI 30-39.9) 03/03/2019 Overview (05/26/2024): Mar 2017: Sleeve gastrectomy s/p LAPBAND removal Subclinical hypothyroidism 12/13/2018 Pulmonary nodules 05/05/2018 Seasonal allergies 04/28/2018 Severe persistent asthma (CMS/FORMER[facility] V28) 8 Spinal stenosis of lumbar region 11/02/2017 Obstructive sleep apnea of adult 03/07/2017 Overview (05/26/2024): UNTREATED (August 2022) [facility] Home Polysomnogram: Date 02/27/2017; AHI 7, Unclassified apneas 1; Obstructive apneas 19; Central apneas 5; Mixed apneas 0; hypopneas 19; average oxygen saturation 96% (lowest 90% without saturations <88% for 5% or more of study). Treatment study ordered due to intolerance in the past. If insurance declines, will trial CPAP autoset instead. [facility] Polysomnogram treatment study. Date 03/22/2017. SE 87 % SM 91 %; spent 27 % of the study in REM. At the optimal pressure of 9; RDI 2 (AHI 2), Central apneas 2; Obstructive apneas 0; Mixed apneas 0; hypopneas 0; RERAs 0; and, average oxygen saturation was 92%. For the entire study, PLMs ~36. [facility] Polysomnogram: Date 08/11/2019; Wt 200#; BMI 38; [...] Low back pain without sciatica 03/05/2016 Overview (05/26/2024): Follows with pain management. She is status post cortisone injection with relief. Diverticulosis 10/30/2014 GERD (gastroesophageal reflux disease) 0 Encounters Date Type Department Care Team Description 11/30/2024 9:00 AM EDT Office Visit Orthopedic Surgery [facility] [address] [facility] [address] [place] [phone] Manny Leos MD S/P shoulder replacement, left (Primary Dx) 10/27/2024 8:30 AM EST Office Visit Bariatric Surgery [facility] 175 [facility] [address] [place] [address] Mitch Mckinney MD Class 1 obesity due to excess calories with body mass index (BMI) of 30.0 to 30.9 in adult, unspecified whether serious comorbidity present (Primary Dx) 10/18/2024 Telephone Adult Medicine [address] [phone] Gt Prescott MD Phyiscian Order (Safety Net Solution ) 09/27/2024 10:30 AM EST Treatment [facility] Occupational Therapy [address] [place] [phone] Rosa Sánchez, OT Status post shoulder replacement, left (Primary Dx) 09/20/2024 9:00 AM EST Treatment [facility] Occupational Therapy [address] [place] [phone] Rosa Sánchez, OT Status post shoulder replacement, left (Primary Dx) 09/14/2024 9:30 AM EST Office Visit Orthopedic Surgery - [place] [address] [facility] [address] [place] [phone] Leena Obrien PA Post-operative state (Primary Dx); S/P reverse total shoulder arthroplasty, left 09/14/2024 8:45 AM EST Treatment [facility] Occupational Therapy [address] [place] [phone] Yong Ruiz TRAN/L Status post shoulder replacement, left (Primary Dx) 09/09/2024 10:30 AM EST Treatment [facility] Occupational Therapy [address] [place] [phone] Rosa Sánchez, OT Status post shoulder replacement, left (Primary Dx) from Last 3 Months Immunizations Name Administration Dates Next Due Moderna SARS-CoV-2 COVID-19, mRNA, LNP-S, preservative free 10/28/2021 Surgical History Surgery Date Site/Laterality Comments ANKLE SURGERY 2010 PROCEDURE: HISTORICAL ANKLE SURGERY; COMMENT: LEFT ANKLE, DR. BATRES LAPAROSCOPIC GASTRIC BANDING 2009 PROCEDURE: LAP ADJUSTABLE GASTRIC BAND KNEE SURGERY PROCEDURE: HISTORICAL KNEE SURGERY; COMMENT: orthroscopic, needs knee transplant TOTAL KNEE ARTHROPLASTY 09/2013 Bilateral PROCEDURE: HISTORICAL TOTAL KNEE REPLACE; COMMENT: left knee, then right knee 2020; NEOS HERNIA REPAIR 12/2013 PROCEDURE: REPAIR UMBILICAL HERNIA WRIST SURGERY Left PROCEDURE: HISTORICAL WRIST SURGERY; COMMENT: bone growth removed OTHER SURGICAL HISTORY 04/10/2017 PROCEDURE: HISTORY OTHER; COMMENT: sleeve gastrectomy; lap band and port removed; repair hiatal hernia OTHER SURGICAL HISTORY 2003 PROCEDURE: OH TOTAL ABDOMINAL HYSTERECT W/WO RMVL TUBE OVARY; COMMENT: Abdominal, Has cervix and ovaries, hyst done for fibroids and bleeding CARPAL TUNNEL RELEASE 03/02/2023 Left PROCEDURE: HISTORICAL CARPAL TUNNEL REL; COMMENT: Dr. Burk, scheduled for upcoming right carpal tunnel release 05/21/2023 FOOT SURGERY 2022 Right PROCEDURE: HISTORICAL FOOT SURGERY; COMMENT: hardwear removal Medical History Medical History Date Comments Diverticulosis 10/30/2014 DX:Diverticulosi s Low back pain without sciatica 03/05/2016 D X:Low back pain without sciatica History of knee replacement, total, left 11/17/2013 DX:History of knee replaceme nt, total, left; COMMENT: 2013 GERD (gastroesophageal reflu x disease) 05/27/2010 DX:GERD (gastroesophageal re flux disease) Obstructive sleep apnea of adult 03/07/2017 DX:Obstructive sleep apnea of adult; COMMENT: [facility] Home Polysomnogram: Date 02/27/2017; AHI 7, Unclassified apneas 1; Obstructive apneas 19; Central apneas 5; Mixed apneas 0; hypopneas 19; average oxygen saturation 96% (lowest 90% without saturations <88% for 5% or more of study). Treatment study ordered due to intolerance in the past. If insurance declines, will trial CPAP autoset instead. [facility] Poly* Status post laparoscopic sle barbara gastrectomy 04/20/2017 DX:Status post laparoscopic sleeve gastrectomy; COMMENT: 03/2017 removal of lap band and port as well Morbid obesity with BMI of 4 0.0-44.9, adult ([facility]ER[facility] V24, CMS/[facility]ER[facility] V28) 11/03/2014 DX:Morbid obesity wit h BMI of 40.0-44.9, adult ([facility]) Severe persistent asthma (CM S/HCC V28) 03/08/2018 DX:Severe persistent asthma Allergic conjunctivitis of both eyes 04/28/2018 DX:Allergic conjunctivitis of both eyes Chronic rhinitis 04/28/2018 DX:Chronic rhin itis Total knee replacement status, right 02/01/2020 DX:Total knee replacement status, right; COMMENT: 02/10 COPD (chronic obstructive pu lmonary disease) ([facility] V24, [facility] V28) DX:COPD (chronic o bstructive pulmonary disease) (HCC) Pulmonary embolism ([facility] V24, [facility] V28) 07/15/2022 DX:Pulmonary embolism (HCC) Family History Medical History Relation Name Comments CABG Brother 1 Diabetes Father unknown type of cancer; asthma Hypertension Mother Other: Chiari Sister 1 Breast cancer Neg Hx Cancer of Small Bowel Neg Hx Colon cancer Neg Hx Kidney cancer Neg Hx Ovarian cancer Neg Hx Pancreatic cancer Neg Hx Uterine cancer Neg Hx Relation Name Status Comments Brother 1 Brother 2 Alive 5 Father (Age 60 s) Mother Alive Paternal Grandfather Alive Sister 1 Sister 2 Alive x3 Social History Tobacco Use Types Packs/Day Years Used Date Smoking Tobacco: Never Smokeless Tobacco: Never Alcohol Use Standard Drinks/Week Comments No 0 (1 standard drink = 0.6 oz pur e alcohol) Comments Unknown Sex and Gender Information Value Date Recorded Sex Assigned at Not on file Legal Sex Female 5:04 AM EST Gender Identity Not on file Sexual Orientation Not on file Obstetrics History Last Filed Vital Signs Vital Sign Reading Time Taken Comments Blood Pressure 133/75 10/27/2024 9:07 AM EST Pulse 83 10/27/2024 9:07 AM EST Temperature 36.8 ??C (98.2 ??F) 10/27/2024 9:07 AM ES T Respiratory Rate - - Oxygen Saturation - - Inhaled Oxygen Concentration - - Weight 74.4 kg (164 lb) 10/27/2024 9:07 AM EST Height 157.5 cm (5' 2 ) 10/27/2024 9:07 AM EST Body Mass Index 30 10/27/2024 9:07 AM EST Plan of Treatment Upcoming Encounters Date Type Department Care Team (Late st Contact Info) Description 01/03/2025 8:30 AM EDT Office Visit Adult Medicine [address] [phone] Donte Patterson PA [address] [place] [address] [place] [address] 02/28/2025 8:00 AM EDT Office Visit Bariatric Surgery - [place] [address] [place] [phone] Mitch Mckinney MD [facility] [address] [place] [address] 06/02/2025 9:00 AM EDT Office Visit Orthopedic Surgery - [place] [address] [place] [phone] Leena Obrien PA [address] [facility] [address] [place] [address] Health Maintenance Due Date Last Done Comments Hepatitis B Vaccines (1 of 3 - 19+ 3-dose series) 1987 Pneumococcal Vaccine: 50+ Years (2 of 2 - PCV) 10/03/2016 10/03/2015 Pneumococcal Vaccine: Pediatrics (0 to 5 Years) and At-Risk Patients (6 to 64 Years) (2 of 2 - PCV) 10/03/2016 10/03/2015 Breast Cancer Screening 07/20/2020 07/20/2018, 05/07 HIV Screening 08/02/2022 Social Influencers of Health Screening 08/02/2022 COVID-19 Vaccine ( season) 2024 07/09/2022, 10/28/2021, 11/13/2020, Additional history exists Influenza Vaccine (Season Ended) 2025 07/29/2023, 07/10/2022, 05/24/2021, Additional history exists Depression Screening 04/26/2025 04/26/2024 Cervical Cancer Screening: HPV 12/24/2025 12/24/2020 Cholesterol Screening (Lipid Panel) 12/31/2028 01/01/2024, 01/01/2024 Colorectal Cancer Screening: Colonoscopy 07/28/2029 07/28/2019 DTaP,Tdap,and Td Vaccines (6 - Td or Tdap) 11/04/2034 11/04/2024, 11/03/2023, 03/07/2013, Additional history exists Zoster Vaccines Completed 02/16/2021, 07/11/2020 Hepatitis C Screening Completed 05/24/2021 HIB Vaccines Aged Out No longer eligi [...] on patient's age to complete this topic MMR Vaccines Aged Out No longer eligi ble based on patient's age to complete this topic Meningococcal ACWY Vaccine Aged Out N o longer eligible based on patient's age to complete this topic Meningococcal B Vaccine Aged Out No l onger eligible based on patient's age to complete this topic RSV Immunization Patients Under 20 months Aged Out No longer eligible based on patient's age to complete this topic Varicella Vaccines Aged Out No longer eligible based on patient's age to complete this topic Goals Goal Patient Goal Type Associated Problems [...] do all desired tasks there w/out assist Procedures Procedure Name Priority Date/Time Associated Diagnosis Comments HEMOGLOBIN A1C Routine 11/11/2024 1:49 PM EDT Class 1 obesity due to excess calories with body mass index (BMI) of 30.0 to 30.9 in adult, unspecified whether serious comorbidity present EXTERNAL CT REPORT 09/27/[address] REPORT 09/27/2024 DEPRESSION SCREENING Routine 04/26/2024 LIPID PANEL Routine 01/01/2024 HEPATITIS C SCREENING Routine 05/24/2021 HPV Routine 12/24/2020 COLONOSCOPY Routine 07/28/2019 SCR MAMMO BI INCL CAD Routine 07/20/2018 8:05 AM EST Encounter for screening mammogram for malignant neoplasm of breast from Last 3 Months or Most Recently Relevant to Health Maintenance Results * Hemoglobin A1c (11/11/2024 1:49 PM EDT) Hemoglobin A1C 5.7 <6.5 % LAB CHEMISTRY METHOD 11/11/2024 10:08 PM EDT [facility] Mean Bld Glu Estim. 117 mg/dL LAB CHEMISTRY METHOD 11/11/2024 10:08 PM EDT [facility] Blood Venous blood specimen / Unknown Venipuncture / Unknown 11/11/2024 1:49 PM EDT 11/11/2024 1:49 PM EDT us Mitch Mckinney MD LAB BLOOD ORDERABLES Final R esult [facility] [address] [place] [address], [place] [phone] * External CT Report (09/27/2024) Only the most recent of2 resultswithin the time period is included. Anatomical Region Laterality Modality Computed Tomogra phy Provider Onbase IMG CT PROCEDURES Final Resul t * Depression Screening (04/26/2024) Pathologist [facility] Depression Screening abstracted Result [facility] Final Result * Lipid panel (01/01/2024) [facility] LDL/HDL Ratio 2 0 - 4 Triglycerides 55 0 - 150 mg/dL Cholesterol 194 0 - 200 mg/dL HDL 90 >=40 mg/dL LDL Cholesterol 93 0 - 100 mg/dL Blood Venous blood specimen / Unknown Result [facility] LAB BLOOD ORDERABLES June l Result * Hepatitis C Screening (05/24/2021) [facility] Hepatitis C Screening abstracted Result [facility] Final Result * Cervical Cancer Screening: HPV (12/24/2020) [facility] Cervical Cancer Screening: HPV negative, abstracted Result [facility] Final Result * Colonoscopy (07/28/2019) [facility] Colonoscopy no interpretation , abstracted Anatomical Region Laterality Modality Other Result [facility] Final Result * SCR MAMMO BI INCL CAD (07/20/2018 8:05 AM EST) Anatomical Region Laterality Modality Radiographic Fanta ging 05/07/2017 8:15 AM EDT Narrative 07/20/2018 10:00 AM EST This is a summary report. The complete report is available in the patient's medical record. If you cannot access the medical record, please contact the sending organization for a detailed fax or copy. Full field digital screening mammography, reviewed with CAD and compared to previous. The breast tissue is heterogeneously dense, limiting sensitivity. Bilateral vascular calcifications. No suspicious mass, architectural distortion or suspicious calcifications are identified. IMPRESSION: : Dense breast tissue, limiting the sensitivity of mammography. No mammographic evidence of malignancy. BIRADS 1-Negative; N. 5 year breast cancer risk assessment 0.5 % Lifetime breast cancer risk assessment 5.0 % Breast cancer risk category Low (<15%) Procedure Note Mariia Lee, DO - 08/12/2022 This is a summary report. The complete report is available in thepatient's medical record. If you cannot access the medical record, pleasecontact the sending organization for a detailed fax or copy. Full field digital screening mammography, reviewed with CAD and comparedto previous. The breast tissue is heterogeneously dense, limitingsensitivity. Bilateral vascular calcifications. No suspicious mass,architectural distortion or suspicious calcifications are identified. IMPRESSION: : Dense breast tissue, limiting the sensitivity of mammography. Nomammographic evidence of malignancy. BIRADS 1-Negative; N. 5 year breast cancer risk assessment 0.5 % Lifetime breast cancer risk assessment 5.0 % Breast cancer risk category Low (<15%) David Almaraz MD IMG XR PROCEDURES Final Result from Last 3 Months or Most Recently Relevant to Health Maintenance Insurance [facility] Advance Directives Documents on File Type Date Recorded Patient Seed Packer Expl anation Health Care Decision (hx) 12/19/2014 AD LEE DIRECTIVE Health Care Decision (hx) 12/19/2014 AD LEE DIRECTIVE Health Care Decision (hx) 12/19/2014 AD LEE DIRECTIVE Health Care Decision (hx) 12/19/2014 AD LEE DIRECTIVE Health Care Decision (hx) 12/19/2014 AD LEE DIRECTIVE Health Care Decision (hx) 12/19/2014 AD LEE DIRECTIVE Health Care Decision (hx) 12/19/2014 AD LEE DIRECTIVE Health Care Decision (hx) 12/19/2014 AD LEE DIRECTIVE Health Care Decision (hx) 12/19/2014 AD LEE DIRECTIVE Health Care Decision (hx) 12/19/2014 AD LEE DIRECTIVE Health Care Decision (hx) 12/19/2014 AD LEE DIRECTIVE Health Care Decision (hx) 12/19/2014 AD LEE DIRECTIVE Health Care Decision (hx) 12/19/2014 AD LEE DIRECTIVE Health Care Decision (hx) 12/19/2014 AD LEE DIRECTIVE Health Care Decision (hx) 12/19/2014 AD LEE DIRECTIVE Health Care Decision (hx) 12/19/2014 AD LEE DIRECTIVE Health Care Decision (hx) 12/19/2014 AD LEE DIRECTIVE Health Care Decision (hx) 12/19/2014 AD LEE DIRECTIVE Health Care Decision (hx) 12/19/2014 AD LEE DIRECTIVE Health Care Decision (hx) 12/19/2014 AD LEE DIRECTIVE Health Care Decision (hx) 12/19/2014 AD LEE DIRECTIVE Health Care Decision (hx) 12/19/2014 AD LEE DIRECTIVE Health Care Decision (hx) 12/19/2014 AD LEE DIRECTIVE Health Care Decision (hx) 12/19/2014 AD LEE DIRECTIVE Health Care Decision (hx) 12/19/2014 AD LEE DIRECTIVE Health Care Decision (hx) 12/19/2014 AD LEE DIRECTIVE Health Care Decision (hx) 12/19/2014 AD LEE DIRECTIVE Health Care Decision (hx) 12/19/2014 AD LEE DIRECTIVE Health Care Decision (hx) 12/15/2014 AD LEE DIRECTIVE Health Care Decision (hx) 12/15/2014 AD LEE DIRECTIVE Health Care Decision (hx) 12/15/2014 AD LEE DIRECTIVE Health Care Decision (hx) 12/15/2014 AD LEE DIRECTIVE Health Care Decision (hx) 12/15/2014 AD LEE DIRECTIVE Health Care Decision (hx) 12/15/2014 AD LEE DIRECTIVE Health Care Decision (hx) 12/15/2014 AD LEE DIRECTIVE Health Care Decision (hx) 12/15/2014 AD LEE DIRECTIVE Health Care Decision (hx) 12/15/2014 AD LEE DIRECTIVE Health Care Decision (hx) 12/15/2014 AD LEE DIRECTIVE Health Care Decision (hx) 12/15/2014 AD LEE DIRECTIVE Health Care Decision (hx) 12/15/2014 AD LEE DIRECTIVE Health Care Decision (hx) 12/15/2014 AD LEE DIRECTIVE Health Care Decision (hx) 12/15/2014 AD LEE DIRECTIVE Health Care Decision (hx) 12/15/2014 AD LEE DIRECTIVE Health Care Decision (hx) 12/15/2014 AD LEE DIRECTIVE Health Care Decision (hx) 12/15/2014 AD LEE DIRECTIVE Health Care Decision (hx) 12/15/2014 AD LEE DIRECTIVE Health Care Decision (hx) 12/15/2014 AD LEE DIRECTIVE Health Care Decision (hx) 12/15/2014 AD LEE DIRECTIVE Health Care Decision (hx) 12/15/2014 AD LEE DIRECTIVE Health Care Decision (hx) 12/15/2014 AD LEE DIRECTIVE Health Care Decision (hx) 12/15/2014 AD LEE DIRECTIVE Health Care Decision (hx) 12/15/2014 AD LEE DIRECTIVE Health Care Decision (hx) 12/15/2014 AD LEE DIRECTIVE Health Care Decision (hx) 12/15/2014 AD LEE DIRECTIVE Health Care Decision (hx) 12/15/2014 AD LEE DIRECTIVE Health Care Decision (hx) 12/15/2014 AD LEE DIRECTIVE Care Teams Stove Refinisher Relationship Specialty Start Date End Date Gt Prescott MD [address] [place] [id number] PCP - General Internal Medicine 02/21/20
--- OUTSIDE RECORDS SUMMARY | 2024-12-06 11:59 | XMS_ITS | Data Portability ---
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 [...] booked after insurance approval. She needs a transfer driver on the day of the procedure. [...] causing mild flattening of the dural sac, qncq-wk-tqvhenj e right and mild left-sided foraminal stenosis. [...] up in ten weeks [email or web address] Not available 04/26/2024 16:34:56 07/28/2024 07/28/2024 Codie [...] causing mild flattening of the dural sac, tpvn-ox-vexcnhu e right and mild left-sided foraminal stenosis. [...] booked after insurance approval. She needs a transfer driver on the day of the procedure. zhao Not available 07/28/2024 11:36:10 08/11/2024 08/11/2024 Codie [...] causing mild flattening of the dural sac, veym-yd-hpoeqrw e right and mild left-sided foraminal stenosis. [...] ten weeks [email or web address] Not available 08/11/2024 17:00:50 11/14/2024 11/14/2024 Codie Fernnádez is a 54 year old woman with complaints of low back pain radiating into left lower extremity. On exam, she has pain on flexion and a positive right straight leg raising test. She has trialed physical therapy with no pain benefit. MRI Lumbar spine shows Mild disc herniation and marked degenerative facet arthropathy at L3-4 causing mild flattening of the dural sac, sxfh-zh-yxscoms e right and mild left-sided foraminal stenosis. [...] booked after insurance approval. She needs a transfer driver on the day of the procedure. [email or web address] Not available 11/14/2024 15:21:57 Plan of Treatment Reminders Order Date Submit Date Provider Last Modified By Organization Details Last Modified Time Details Appointments PROCEDURE 2024 11:00A M Carlita paul MD Not available Not available Not available Lab None recorded. Referral None recorded. Procedures None recorded. Surgeries None recorded. Imaging None recorded. Medication Orders None recorded. Patient TargetsNo targets recorded. Patient Instructions Encounter Date Encounter Id Patient Instructions Last Modified By Organization Details Last Modified Time 04/26/2024 [id number] She was advised to continue activities as tolerated. [email or web address] Not available 04/26/2024 16:35:03 08/11/2024 [id number] She was advised to continue activities as tolerated. [email or web address] Not available 08/11/2024 16:59:30 Reason for Referral None Reported. Problems Name Problem SNOMED Code Status Onset Date Resolution Date Notes Provider Name and Address Organization Details Recorded Time Low back pain 875727611 Active 2015 Carlita paul MD [address] , [address], [place], [address], [place] [facility] 6 15:50:45 Lumbosacral radiculitis 43649157 Active 2017 Carlita paul MD [address] , [address], [place], [address], [place] [facility] 8 10:17:40 Displacement of lumbar intervertebral disc without myelopathy 64711833 Active 2017 Carlita paul MD [address] , [address], [place], [address], [place] [facility] 8 10:17:41 Lumbosacral spondylosis without myelopathy 67169159 Active 2017 Carlita paul MD [address] , [address], [place], [address], [place] [facility] 8 10:17:42 Spinal stenosis of lumbar region 33541036 Active 2017 Carlita paul MD [address] , [address], [place], [address], [place] [facility] 8 10:17:43 Problem Notes None recorded. Procedures Surgical History Date Name Laterality Status Provider Name and Address Organization Details Recorded Time 08/11/20 24 Lumbar Epidural steroid injection under fluoroscopic guidance completed Carlita Aguilar MD [address] , [address], [place], [address], [place] [facility] 08/11/2024 17:00:18 06/07/20 24 total shoulder replacement completed Carlita Aguilar MD [address] , [address], [place], [address], [place] [facility] 07/28/2024 11:09:13 04/26/20 24 Lumbar Epidural steroid injection under fluoroscopic guidance completed Carlita Aguilar MD [address] , [address], [place], [address], [place] [facility] 04/26/2024 16:35:33 12/22/19 24 Lumbar Epidural steroid injection under fluoroscopic guidance completed Carlita Aguilar MD [address] , [address], [place], [address], [place] [facility] 12/22/2023 15:01:08 07/15/20 23 Lumbar Epidural steroid injection under fluoroscopic guidance completed Carlita Aguilar MD [address] , [address], [place], [address], [place] [facility] 07/15/2023 14:07:22 03/25/20 23 Lumbar Epidural steroid injection under fluoroscopic guidance completed Carlita Aguilar MD [address] , [address], [place], [address], [place] [facility] 03/25/2023 10:50:21 12/04/19 23 Lumbar Epidural steroid injection under fluoroscopic guidance completed Carlita Aguilar MD [address] , [address], [place], [address], [place] [facility] 12/03/2022 10:16:53 07/29/20 22 Lumbar Epidural steroid injection under fluoroscopic guidance completed Carlita Aguilar MD [address] , [address], [place], [address], [place] [facility] 07/29/2022 09:04:50 03/11/20 22 Lumbar Epidural steroid injection under fluoroscopic guidance completed Carlita Aguilar MD [address] , [address], [place], [address], [place] [facility] 03/11/2022 14:38:59 09/03/19 22 Radiofrequency of Lumbar/Sacral medial branches supplying the facets under fluoroscopic guidance completed Carlita Aguilar MD [address] , [address], [place], [address], [place] [facility] 09/03/2021 15:52:43 05/29/20 21 Fluoroscopic Guided Lumbar Facet Steroid Injections of levels completed Carlita Aguilar MD [address] , [address], [place], [address], [place] [facility] 05/29/2021 10:20:51 12/13/19 21 Fluoroscopic Guided Lumbar Facet Steroid Injections of levels completed Carlita Aguilar MD [address] , [address], [place], [address], [place] [facility] 12/12/2020 13:57:08 10/03/19 21 Lumbar Epidural steroid injection under fluoroscopic guidance completed Carlita Aguilar MD [address] , [address], [place], [address], [place] [facility] 10/03/2020 10:00:24 07/11/20 20 Lumbar Epidural steroid injection under fluoroscopic guidance completed Carlita Aguilar MD [address] , [address], [place], [address], [place] [facility] 07/11/2020 10:28:54 06/13/20 20 Fluoroscopic Guided Lumbar Facet Steroid Injections of levels completed Carlita Aguilar MD [address] , [address], [place], [address], [place] [facility] 06/13/2020 10:06:27 02/21/20 20 Lumbar Epidural steroid injection under fluoroscopic guidance completed Carlita Aguilar MD [address] , [address], [place], [address], [place] [facility] 02/21/2020 10:32:02 10/26/19 20 Fluoroscopic Guided Lumbar Facet Steroid Injections of levels completed Carlita Aguilar MD [address] , [address], [place], [address], [place] [facility] 10/26/2019 14:00:13 08/31/19 20 Lumbar Epidural steroid injection under fluoroscopic guidance completed Carlita Aguilar MD [address] , [address], [place], [address], [place] [facility] 09/05/2019 11:29:25 06/08/20 19 Fluoroscopic Guided Lumbar Facet Steroid Injections of levels completed Carlita Aguilar MD [address] , [address], [place], [address], [place] [facility] 06/10/2019 14:46:56 05/20/20 19 arthrodesis of foot completed Carlita Aguilar MD [address] , [address], [place], [address], [place] [facility] 06/08/2019 09:51:34 04/13/20 19 Lumbar Epidural steroid injection under fluoroscopic guidance completed Carlita Aguilar MD [address] , [address], [place], [address], [place] [facility] 04/20/2019 16:00:55 01/13/20 19 Lumbar Epidural steroid injection under fluoroscopic guidance completed Carlita Aguilar MD [address] , [address], [place], [address], [place] [facility] 01/12/2019 13:18:20 09/22/19 19 Lumbar Epidural steroid injection under fluoroscopic guidance completed Carlita Aguilar MD [address] , [address], [place], [address], [place] [facility] 09/23/2018 11:32:09 05/18/20 18 Lumbar Epidural steroid injection under fluoroscopic guidance completed Carlita Aguilar MD [address] , [address], [place], [address], [place] [facility] 05/18/2018 16:07:36 11/25/19 18 Lumbar Epidural steroid injection under fluoroscopic guidance completed Carlita Aguilar MD [address] , [address], [place], [address], [place] [facility] 11/24/2017 11:24:09 06/30/20 17 Lumbar Epidural steroid injection under fluoroscopic guidance completed Carlita Aguilar MD [address] , [address], [place], [address], [place] [facility] 07/03/2017 08:59:37 03/10/20 17 Lumbar Epidural steroid injection under fluoroscopic guidance completed Carlita Aguilar MD [address] , [address], [place], [address], [place] [facility] 03/10/2017 14:35:03 11/27/19 17 Lumbar Epidural steroid injection under fluoroscopic guidance completed Carlita Aguilar MD [address] , [address], [place], [address], [place] [facility] 11/26/2016 10:15:50 07/22/20 16 Lumbar Epidural steroid injection under fluoroscopic guidance completed Carlita Aguilar MD [address] [facility] , [address], [place], [address], [place] [facility] 07/22/2016 15:04:33 Joint Replacement completed Kerrie Oates [place] [facility] 07/09/2016 14:28:12 Other completed Kerrie Oates [place] [facility] 07/09/2016 14:29:02 Hernia Repair completed Kerriebillie Oates [place] [facility] 07/09/2016 14:29:39 Other completed Kerrie Oates [place] [facility] 07/09/2016 14:30:26 Hysterectomy completed Kerrie Velasquezzier [place] [facility] 07/09/2016 14:30:57 Other completed Kerrie Oates [place] [facility] 07/09/2016 14:32:02 Carpal tunnel surgery completed Carlita Aguilar MD [address] [facility] , [address], [place], [address], [place] [facility] 06/26/2023 09:11:01 Imaging Results None recorded. Procedure Notes None recorded. Medical Equipment None Reported. Allergies Allergen ID Allergen Name Allergen Category Reaction Reaction Severity Criticality Documentation Date Start Date Code Code System Note Provider Name and Address Organization Details Recorded Time 70371 latex environme nt,medica tion itching rash Not available Not available Not available 09/22/2018 85644 91 RxNorm Kerriebillie rutledge, [place] [facility] [...] capsule TAKE 4 CAPSULES OF AMOXICIL SHARAN 1 HOUR PRIOR DENTAL PROCEDUR E active [...] PLEASE SEE ATTACHED FOR DETAILED DIRECTIO NS 11/14 completed Not Available Not Available Not Available doxycycli ne hyclate 100 mg capsule [...] FOR NAUSEA AND VOMITING FOR 7 DAYS 11/14 completed Not Available Not Available Not Available prednison e 20 mg tablet TAKE 3 TABLETS DAILY X3 DAYS, THEN 2 TABLETS DAILY X3 DAYS, THEN 1 TABLET DAILY X3 DAYS 07/28 completed Not Available Not Available Not Available prednison e 5 mg tablet TAKE DAILY W/FOOD 1 [id number] S,THEN 1/2TAB DAILY X7DAYS, THEN 1/2TAB EVERY OTHER DAY X14DAY NO NSAID 11/14 completed Not Available Not Available Not Available [...] hr tablet, extended release TAKE 1 TABLET (300 MG TOTAL) BY MOUTH DAILY DO NOT CRUSH,CH EW, OR SPIT active Not Available Not Available No t [...] TAKE 1 TABLET BY MOUTH EVERY DAY 11/14 completed Not Available Not Available Not Available Symbicort 160 mcg-4.5 mcg/actua tion HFA [...] completed Not Available Not Available Not Available Marcela DVT-PE Treatment 30-Day Starter 5 mg (74 [...] saturation in Arterial blood by Pulse oximetry Pain severity - 0-10 verbal numeric rating [Score] - Reported Body mass index (BMI) Body weight Systolic blood pressure Diastolic blood pressure Provider Name and Address Organization Details Last Updated DateTime 4 154.94 cm 67 /min 98 % 98 % 5 35.1 kg/m2 79422.1 8 g 114 mm[Hg] 68 mm[Hg] Susan Wright [place] [facility] 4 14:49:38 Date Recorded Body height Heart rate Oxygen saturation Oxygen saturation in Arterial blood by Pulse oximetry Systolic blood pressure Diastolic blood pressure Provider Name and Address Organization Details Last Updated DateTime 4 154.94 cm 73 /min 96 % 96 % 118 mm[Hg] 67 mm[Hg] Almita Black [place] [facility] 4 11:23:25 Date Recorded Body height Body mass index (BMI) Body weight Heart rate Oxygen saturation Oxygen saturation in Arterial blood by Pulse oximetry Pain severity - 0-10 verbal numeric rating [Score] - Reported Systolic blood pressure Diastolic blood pressure Provider Name and Address Organization Details Last Updated DateTime 4 154.94 cm 32.7 kg/m2 93030.4 8 g 69 /min 98 % 98 % 6 144 mm[Hg] 69 mm[Hg] Carlita paul MD [address] , [address], [place], [address], [place] [facility] 4 11:02:55 Date Recorded Body height Heart rate Oxygen saturation Oxygen saturation in Arterial blood by Pulse oximetry Pain severity - 0-10 verbal numeric rating [Score] - Reported Systolic blood pressure Diastolic blood pressure Provider Name and Address Organization Details Last Updated DateTime 4 154.94 cm 68 /min 98 % 98 % 3 132 mm[Hg] 73 mm[Hg] Denita hernandez [place] [facility] 4 11:07:24 Date Recorded Body height Body mass index (BMI) Body weight Heart rate Oxygen saturation Oxygen saturation in Arterial blood by Pulse oximetry Pain severity - 0-10 verbal numeric rating [Score] - Reported Systolic blood pressure Diastolic blood pressure Provider Name and Address Organization Details Last Updated DateTime 5 154.94 cm 31.9 kg/m2 78069.1 1 g 71 /min 98 % 98 % 3 116 mm[Hg] 81 mm[Hg] Carlita paul MD [address] , [address], [place], [address], [place] [facility] 5 11:12:48 Social History Question Answer Notes LastModified by Organizat ion Details LastModified Time Tobacco Smoking Status Never Smoker Not Available [employer] 06/08/2020 03:16:12 What Is Your Level Of Alcohol Consumption? None [id number] Information not available 06/08/2020 Are You Currently Employed? No [id number] Information not available 06/08/2020 Which Illicit Or Recreational Drugs Have You Used? No [id number] Information not available 06/08/2020 Education 8 Information no t available 07/09/2016 Live Alone Or With Others? With Others And 3 Children Information not available 07/09/2016 Marital Status Informatio n not available 07/09/2016 What Was The Date Of Your Most Recent Tobacco Screening? 01/12/2019 [id number] Information not available 06/08/2020 Sex: Unknown Functional Status None recorded. Mental Status None recorded. Family History Relationship Description Onset Age of this Age Resolved Age Notes LastModified by Organization Details LastModified Time Mother Cerebrovascu lar accident 85 years old in hospic e jos[place] Not available 02/27/2022 14:47:26 Medical History Condition Response Arthritis Y Asthma Y Gynecological HistoryNo gynecological history recorded. Obstetrics History GPAL:G 0 P 0 0 0 0 Past Encounters Encounter ID Performer Location Encounter Start Date Encounter Closed Date Diagnosis/Indication Diagnosis SNOMED-CT Code Diagnosis ICD10 Code Diagnosis Note [id number] Carlita Aguilar MD PAIN OFFICE [address] [place] [address] 07/09/2016 13:59:18 07/13/2016 19:15:18 Lumbosacral radiculitis 80117530 M54.17 Displaceme nt of lumbar intervertebral disc without myelopathy 53885196 M51.26 Lumbosacra l spondylosis without myelopathy 60762228 M47.817 Spinal kj nosis of lumbar region 43615242 M48.06 [id number] Carlita Aguilar MD PAIN OFFICE [address] [place] [address] 07/22/2016 14:36:09 07/23/2016 08:49:04 Lumbosacral radiculitis 73573581 M54.17 Spinal kj nosis of lumbar region 74869548 M48.06 Lumbosacra l spondylosis without myelopathy 92410164 M47.817 Displaceme nt of lumbar intervertebral disc without myelopathy 01850749 M51.26 [id number] Carlita Aguilar MD PAIN OFFICE [address] [place] [address] 08/21/2016 09:37:12 08/21/2016 11:16:14 Lumbosacral radiculitis 63678312 M54.17 Displaceme nt of lumbar intervertebral disc without myelopathy 33486542 M51.26 Lumbosacra l spondylosis without myelopathy 89774520 M47.817 Spinal kj nosis of lumbar region 17497128 M48.06 [id number] Carlita Aguilar MD [facility] [address] [facility] [address] 11/26/2016 09:05:49 11/26/2016 10:32:43 Lumbosacral radiculitis 42951863 M54.17 Displaceme nt of lumbar intervertebral disc without myelopathy 06381284 M51.26 Lumbosacra l spondylosis without myelopathy 70565391 M47.817 Spinal kj nosis of lumbar region 80949362 M48.06 [id number] Carlita Aguilar MD [facility] [address] [facility] [address] 03/10/2017 13:13:41 03/11/2017 09:11:35 Lumbosacral radiculitis 48641445 M54.17 Displaceme nt of lumbar intervertebral disc without myelopathy 77738075 M51.26 Lumbosacra l spondylosis without myelopathy 46934084 M47.817 Spinal kj nosis of lumbar region 28986518 M48.06 [id number] Carlita Aguilar MD PAIN OFFICE [address] [facility] [address] 06/30/2017 14:07:57 07/03/2017 09:19:34 Lumbosacral radiculitis 81613627 M54.17 Displaceme nt of lumbar intervertebral disc without myelopathy 67637941 M51.26 Lumbosacra l spondylosis without myelopathy 79959497 M47.817 Spinal kj nosis of lumbar region 27452303 M48.062 [id number] Carlita Aguilar MD [facility] [address] [facility] [address] 11/02/2017 09:59:08 11/02/2017 10:18:49 Lumbosacral radiculitis 52298254 M54.17 Displaceme nt of lumbar intervertebral disc without myelopathy 33190835 M51.26 Lumbosacra l spondylosis without myelopathy 28408934 M47.817 Spinal kj nosis of lumbar region 62548818 M48.062 [id number] Carlita Aguilar MD [facility] [address] [place] [address] 11/24/2017 10:57:35 11/24/2017 14:35:43 Lumbosacral radiculitis 14606871 M54.17 Displaceme nt of lumbar intervertebral disc without myelopathy 72262668 M51.26 Lumbosacra l spondylosis without myelopathy 56889694 M47.817 Spinal kj nosis of lumbar region 13257903 M48.062 [id number] Carlita Aguilar MD PAIN OFFICE [address] [place] [address] 05/18/2018 09:59:30 05/18/2018 16:10:36 Lumbosacral radiculitis 02228225 M54.17 Displaceme nt of lumbar intervertebral disc without myelopathy 73230574 M51.26 Lumbosacra l spondylosis without myelopathy 68949046 M47.817 Spinal kj nosis of lumbar region 81843534 M48.062 [id number] Carlita Aguilra MD PAIN OFFICE [address] [place] [address] 09/22/2018 09:38:48 09/23/2018 11:34:42 Lumbosacral radiculitis 37854960 M54.17 Displaceme nt of lumbar intervertebral disc without myelopathy 50782652 M51.26 Lumbosacra l spondylosis without myelopathy 70514470 M47.817 Spinal kj nosis of lumbar region 11500758 M48.062 [id number] Carlita Aguilar MD PAIN OFFICE [address] [place] [address] 01/12/2019 11:04:15 01/12/2019 13:20:35 Lumbosacral radiculitis 38605595 M54.17 Displaceme nt of lumbar intervertebral disc without myelopathy 30358753 M51.26 Lumbosacra l spondylosis without myelopathy 64165326 M47.817 Spinal kj nosis of lumbar region 20888357 M48.062 [id number] Carlita Aguilar MD PAIN OFFICE [address] [place] [address] 02/11/2019 08:47:12 02/28/2019 13:23:31 Lumbosacral radiculitis 81915038 M54.17 Displaceme nt of lumbar intervertebral disc without myelopathy 200205301. Lumbosacra l spondylosis without myelopathy 99388204 M47.817 Spinal kj nosis of lumbar region 60054061 M48.062 [id number] Carlita Aguilar MD PAIN OFFICE [address] [facility] [address] 04/13/2019 09:43:44 04/20/2019 16:03:11 Lumbosacral radiculitis 28291346 M54.17 Displaceme nt of lumbar intervertebral disc without myelopathy 20020530 M5. Lumbosacra l spondylosis without myelopathy 08103508 M47.817 Spinal kj nosis of lumbar region 77771801 M48.062 [id number] Carlita Aguilar MD PAIN OFFICE [address] [facility] [address] 06/08/2019 09:39:51 06/10/2019 14:50:31 Lumbosacral radiculitis 11417060 M54.17 Displaceme nt of lumbar intervertebral disc without myelopathy 20020530 M5. Lumbosacra l spondylosis without myelopathy 63761481 M47.817 Spinal kj nosis of lumbar region 99174059 M48.062 [id number] Carlita Aguilar MD PAIN OFFICE [address] [place] [address] 08/01/2019 09:43:56 08/05/2019 14:50:16 Lumbosacral radiculitis 86561802 M54.17 Displaceme nt of lumbar intervertebral disc without myelopathy 29321921 M51.26 Lumbosacra l spondylosis without myelopathy 30002806 M47.817 Spinal kj nosis of lumbar region 59819531 M48.062 [id number] Carlita Aguilar MD PAIN OFFICE [address] [facility] [address] 08/31/2019 09:15:58 09/05/2019 11:31:14 Lumbosacral radiculitis 33324973 M54.17 Displaceme nt of lumbar intervertebral disc without myelopathy 77240458 M51.26 Lumbosacra l spondylosis without myelopathy 81581532 M47.817 Spinal kj nosis of lumbar region 78947436 M48.062 [id number] Carlita Aguilar MD PAIN OFFICE [address] [place] [address] 10/26/2019 10:33:53 10/26/2019 14:04:23 Lumbosacral radiculitis 52181463 M54.17 Displaceme nt of lumbar intervertebral disc without myelopathy 60896779 M51.26 Lumbosacra l spondylosis without myelopathy 51926963 M47.817 Spinal kj nosis of lumbar region 02155933 M48.062 [id number] Carlita Aguilar MD PAIN OFFICE [address] [place] [address] 02/21/2020 10:01:36 02/21/2020 10:34:34 Lumbosacral radiculitis 62828286 M54.17 Displaceme nt of lumbar intervertebral disc without myelopathy 71870813 M51.26 Lumbosacra l spondylosis without myelopathy 25094048 M47.817 Spinal kj nosis of lumbar region 97980569 M48.062 [id number] Carlita Aguilar MD PAIN OFFICE [address] [place] [address] 03/26/2020 13:30:06 03/27/2020 14:14:35 Lumbosacral radiculitis 41741768 M54.17 Displaceme nt of lumbar intervertebral disc without myelopathy 23025023 M51.26 Lumbosacra l spondylosis without myelopathy 24763799 M47.817 Spinal kj nosis of lumbar region 39377616 M48.062 [id number] Carlita Aguilar MD PAIN OFFICE [address] [place] [address] 05/09/2020 09:32:27 05/09/2020 15:34:23 Lumbosacral radiculitis 75975545 M54.17 Displaceme nt of lumbar intervertebral disc without myelopathy 84396717 M51.26 Lumbosacra l spondylosis without myelopathy 51228833 M47.817 Spinal kj nosis of lumbar region 10014404 M48.062 [id number] Carlita Aguilar MD PAIN OFFICE [address] [place] [address] 06/13/2020 09:38:23 06/13/2020 10:36:59 Lumbosacral radiculitis 82975097 M54.17 Displaceme nt of lumbar intervertebral disc without myelopathy 06293016 M51.26 Lumbosacra l spondylosis without myelopathy 90602231 M47.817 Spinal kj nosis of lumbar region 71707390 M48.062 [id number] Carlita Aguilar MD PAIN OFFICE [address] [place] [address] 07/11/2020 09:09:30 07/11/2020 10:56:32 Lumbosacral radiculitis 42116321 M54.17 Displaceme nt of lumbar intervertebral disc without myelopathy 06606394 M51.26 Lumbosacra l spondylosis without myelopathy 94972389 M47.817 Spinal kj nosis of lumbar region 55201205 M48.062 [id number] Carlita Aguilar MD PAIN OFFICE [address] [place] [address] 10/01/2020 15:36:47 10/01/2020 15:48:00 Displacement of lumbar intervertebral disc without myelopathy 31899273 M51.26 Lumbosacra l radiculitis 26442413 M54.17 [id number] Carlita Aguilar MD PAIN OFFICE [address] [place] [address] 10/03/2020 09:31:03 10/03/2020 10:06:13 Lumbosacral radiculitis 78621905 M54.17 Displaceme nt of lumbar intervertebral disc without myelopathy 48132292 M51.26 Lumbosacra l spondylosis without myelopathy 96334640 M47.817 Spinal kj nosis of lumbar region 67912363 M48.062 [id number] Carlita Aguilar MD [facility] [address] [place] [address] 11/22/2020 10:56:55 11/23/2020 10:04:47 Lumbosacral radiculitis 50257141 M54.17 Displaceme nt of lumbar intervertebral disc without myelopathy 24125404 M51.26 Lumbosacra l spondylosis without myelopathy 32554677 M47.817 Spinal kj nosis of lumbar region 78371890 M48.062 [id number] Carlita Aguilar MD [facility] [address] [place] [address] 12/12/2020 13:06:16 12/12/2020 16:02:14 Lumbosacral radiculitis 27889815 M54.17 Displaceme nt of lumbar intervertebral disc without myelopathy 72193886 M51.26 Lumbosacra l spondylosis without myelopathy 07307796 M47.817 Spinal kj nosis of lumbar region 00779212 M48.062 [id number] Carlita Aguilar MD [facility] [address] [place] [address] 01/09/2021 14:00:49 01/09/2021 14:07:36 Lumbosacral radiculitis 84365484 M54.17 Displaceme nt of lumbar intervertebral disc without myelopathy 80839212 M51.26 Lumbosacra l spondylosis without myelopathy 27133489 M47.817 Spinal kj nosis of lumbar region 83331952 M48.062 [id number] Carlita Aguilar MD [facility] [address] [place] [address] 05/29/2021 09:55:12 05/29/2021 10:26:38 Lumbosacral radiculitis 59486944 M54.17 Displaceme nt of lumbar intervertebral disc without myelopathy 16008536 M51.26 Lumbosacra l spondylosis without myelopathy 89384742 M47.817 Spinal kj nosis of lumbar region 84873072 M48.062 [id number] Carlita Aguilar MD [facility] [address] [place] [address] 06/28/2021 09:03:36 06/28/2021 09:25:12 Lumbosacral radiculitis 53553143 M54.17 Displaceme nt of lumbar intervertebral disc without myelopathy 95908366 M51.26 Lumbosacra l spondylosis without myelopathy 48148289 M47.817 Spinal kj nosis of lumbar region 64475763 M48.062 [id number] Carlita Aguilar MD [facility] [address] [address] 09/03/2021 13:12:29 09/03/2021 16:09:38 Lumbosacral radiculitis 36189345 M54.17 Displaceme nt of lumbar intervertebral disc without myelopathy 17191478 M51.26 Lumbosacra l spondylosis without myelopathy 66995515 M47.817 Spinal kj nosis of lumbar region 79741414 M48.062 [id number] Carlita Aguilar MD PAIN OFFICE [address] [place] [address] 10/07/2021 09:03:04 10/07/2021 09:22:08 Lumbosacral radiculitis 22842151 M54.17 Displaceme nt of lumbar intervertebral disc without myelopathy 12004954 M51.26 Lumbosacra l spondylosis without myelopathy 54741998 M47.817 Spinal kj nosis of lumbar region 26395913 M48.062 [id number] Carlita Aguilar MD [facility] [address] [place] [address] 02/27/2022 14:14:40 02/27/2022 15:01:06 Lumbosacral radiculitis 01367688 M54.17 Displaceme nt of lumbar intervertebral disc without myelopathy 45156821 M51.26 Lumbosacra l spondylosis without myelopathy 54852394 M47.817 Spinal kj nosis of lumbar region 95729791 M48.062 [id number] Carlita Aguilar MD [facility] [address] [place] [address] 03/11/2022 14:10:41 03/11/2022 14:44:15 Lumbosacral radiculitis 20866475 M54.17 Displaceme nt of lumbar intervertebral disc without myelopathy 58135270 M51.26 Lumbosacra l spondylosis without myelopathy 56920116 M47.817 Spinal kj nosis of lumbar region 71121250 M48.062 [id number] Carlita Aguilar MD PAIN OFFICE [address] [facility] [address] 06/02/2022 14:36:35 06/02/2022 15:13:52 Lumbosacral radiculitis 29657758 M54.17 Displaceme nt of lumbar intervertebral disc without myelopathy 20020530 M5. Lumbosacra l spondylosis without myelopathy 36295781 M47.817 Spinal kj nosis of lumbar region 64460019 M48.062 [id number] Carlita Aguilar MD PAIN OFFICE [address] [place] [address] 07/01/2022 10:50:13 07/01/2022 14:03:13 Lumbosacral radiculitis 98177881 M54.17 Displaceme nt of lumbar intervertebral disc without myelopathy 20020530 M5. Lumbosacra l spondylosis without myelopathy 71213379 M47.817 Spinal kj nosis of lumbar region 70892773 M48.062 [id number] Carlita Aguilar MD PAIN OFFICE [address] [facility] [address] 07/29/2022 08:27:40 07/29/2022 09:10:29 Lumbosacral radiculitis 41303918 M54.17 Displaceme nt of lumbar intervertebral disc without myelopathy 55387309 M5. Lumbosacra l spondylosis without myelopathy 07175048 M47.817 Spinal kj nosis of lumbar region 61386213 M48.062 [id number] Carlita Aguilar MD PAIN OFFICE [address] [facility] [address] 10/23/2022 08:32:02 10/23/2022 11:04:01 Lumbosacral radiculitis 43430993 M54.17 Displaceme nt of lumbar intervertebral disc without myelopathy 69074111 M51.26 Lumbosacra l spondylosis without myelopathy 48763323 M47.817 Spinal kj nosis of lumbar region 90150162 M48.062 [id number] Carlita Aguilar MD PAIN OFFICE [address] [place] [address] 12/03/2022 08:53:57 12/03/2022 10:54:32 Lumbosacral radiculitis 37180092 M54.17 Displaceme nt of lumbar intervertebral disc without myelopathy 56488845 M51.26 Lumbosacra l spondylosis without myelopathy 89401317 M47.817 Spinal kj nosis of lumbar region 10618505 M48.062 [id number] Carlita Aguilar MD PAIN OFFICE [address] [place] [address] 02/19/2023 09:18:24 02/19/2023 10:31:40 Spinal stenosis of lumbar region 13374354 M48.062 Displaceme nt of lumbar intervertebral disc without myelopathy 19977840 M51.26 Lumbosacra l radiculitis 18775325 M54.17 Lumbosacra l spondylosis without myelopathy 56802753 M47.817 [id number] Carlita Aguilar MD PAIN OFFICE [address] [place] [address] 03/25/2023 09:02:29 03/25/2023 11:21:54 Lumbosacral radiculitis 77739253 M54.17 Displaceme nt of lumbar intervertebral disc without myelopathy 95305737 M51.26 Lumbosacra l spondylosis without myelopathy 23574083 M47.817 Spinal kj nosis of lumbar region 67217052 M48.062 [id number] Carlita Aguilar MD PAIN OFFICE [address] [place] [address] 06/26/2023 08:48:28 06/26/2023 10:32:50 Spinal stenosis of lumbar region 42021388 M48.062 Displaceme nt of lumbar intervertebral disc without myelopathy 15137447 M51.26 Lumbosacra l radiculitis 22246698 M54.17 Lumbosacra l spondylosis without myelopathy 42746975 M47.817 [id number] Carlita Aguilar MD PAIN OFFICE [address] [place] [address] 07/15/2023 10:27:39 07/15/2023 15:36:47 Spinal stenosis of lumbar region 96055631 M48.062 Lumbosacra l radiculitis 71082876 M54.17 Displaceme nt of lumbar intervertebral disc without myelopathy 52055464 M51.26 Lumbosacra l spondylosis without myelopathy 62572207 M47.817 [id number] Carlita Aguilar MD PAIN OFFICE [address] [place] [address] 10/16/2023 08:40:15 10/16/2023 10:13:18 Spinal stenosis of lumbar region 10389580 M48.062 Displaceme nt of lumbar intervertebral disc without myelopathy 80315116 M51.26 Lumbosacra l radiculitis 07275788 M54.17 Lumbosacra l spondylosis without myelopathy 19395240 M47.817 [id number] Carlita Aguilar MD PAIN OFFICE [address] [place] [address] 12/22/2023 14:38:42 12/22/2023 15:55:19 Spinal stenosis of lumbar region 15361987 M48.062 Lumbosacra l radiculitis 20423208 M54.17 Displaceme nt of lumbar intervertebral disc without myelopathy 03529340 M51.26 Lumbosacra l spondylosis without myelopathy 79284473 M47.817 [id number] Carlita Aguilar MD PAIN OFFICE [address] [place] [address] 03/23/2024 14:43:41 03/23/2024 16:19:28 Lumbosacral radiculitis 31849879 M54.17 Displaceme nt of lumbar intervertebral disc without myelopathy 33190644 M51.26 Spinal kj nosis of lumbar region 26396507 M48.062 Lumbosacra l spondylosis without myelopathy 34534000 M47.817 [id number] Carlita Aguilar MD PAIN OFFICE [address] [place] [address] 04/26/2024 11:20:20 04/26/2024 16:39:44 Spinal stenosis of lumbar region 13550890 M48.062 Lumbosacra l radiculitis 24387985 M54.17 Displaceme nt of lumbar intervertebral disc without myelopathy 50344115 M51.26 Lumbosacra l spondylosis without myelopathy 73033700 M47.817 [id number] Carlita Aguilar MD PAIN OFFICE [address] [place] [address] 07/28/2024 10:57:06 07/28/2024 16:19:19 Lumbosacral radiculitis 85117856 M54.17 Displaceme nt of lumbar intervertebral disc without myelopathy 14415833 M51.26 Spinal kj nosis of lumbar region 08668030 M48.062 Lumbosacra l spondylosis without myelopathy 14364275 M47.817 [id number] Carlita Aguilar MD PAIN OFFICE [address] [place] [address] 08/11/2024 10:59:11 08/11/2024 17:07:59 Spinal stenosis of lumbar region 13613815 M48.062 Lumbosacra l radiculitis 08798002 M54.17 Displaceme nt of lumbar intervertebral disc without myelopathy 98149015 M51.26 Lumbosacra l spondylosis without myelopathy 33087082 M47.817 [id number] Carlita Aguilar MD PAIN OFFICE [address] [place] [address] 11/14/2024 11:07:01 11/14/2024 15:22:28 Lumbosacral radiculitis 67093095 M54.17 Spinal kj nosis of lumbar region 90597368 M48.062 Displaceme nt of lumbar intervertebral disc without myelopathy 51932622 M51.26 Lumbosacra l spondylosis without myelopathy 08571328 M47.817 Health Concerns Section Related Observation LastModified by Organization Detai ls LastModified Time None Recorded Concern Status LastModified by Organization Details LastModified Time None Recorded Advance Directives Directive None Recorded Payers Encounter Date Sequence Insurance Name Policy Number Policy Chatterjee Covered Member ID Chatterjee Member ID Guarantor Name 03/23/2024 1 [facility] (MED[place]ID REPLACEMENT [place] Mackay Fernández [id number] Codie Fernández 04/26/2024 1 [facility] (MEDICAID REPLACEMENT - HMO) [place] Codie Fernández [id number] Codie Fernández 07/28/2024 1 [facility] (MEDICAID REPLACEMENT - HMO) [id number] Codie Fernández [id number] Codie Fernández 08/11/2024 1 [facility] (MEDICAID REPLACEMENT - HMO) [id number] Codie Fernández [id number] Codie Fernández 11/14/2024 1 [facility] ([place]ID RE[place]AC[place] Mackay Fernández [id number] Codie Fernández Notes Date Note Type Note Provider Name and Address Organization Details Recorded Time 03/23/2024 text/html She is here for a [...] foot surgery on 11/05/2023 and is seeing [facility]. Her gait is altered due to ankle problems and this is impacting her low back pain.She had carpal tunnel surgery in February and May 2023. She is scheduled to have left shoulder surgery. She has been on prednisone for an asthma exacerbation and now better. Carlita Aguilar MD [address] [facility] , [address], [place], [address], [facility] - [facility] 03/28/2024 10:32:50 04/26/2024 text/html She is here for a lumbar epidural steroid injection under fluoroscopic guidance. Carlita Aguilar MD [address] [facility] , [address], [place], [address], [place] [facility] 04/26/2024 16:43:00 [...] foot surgery on 11/05/2023 and is seeing [facility]. Her gait is altered due to ankle problems and this is impacting her low back pain.She had carpal tunnel surgery in February and May 2023. She had left shoulder replacement. She is doing better with physical therapy for her shoulder. Carlita Aguilar MD [address] [facility] , [address], [place], [address], [place] [facility] 07/29/2024 09:59:27 08/11/2024 text/html She is here for a lumbar epidural steroid injection under fluoroscopic guidance. Carlita Aguilar MD [address] [facility] , [address], [place], [address], [place] [facility] 08/11/2024 17:11:07 11/14/2024 text/html She is here for a follow up. She was last seen for a Lumbar epidural steroid injection under fluoroscopic guidance on 08/11/2024. She reports 90% pain benefit for 2 and half months with a return of pain back to baseline. She has been having more left sided low back pain which is now radiating into her left buttock region and into her left thigh and now occasionally into her right buttock region. She has difficulty walking due to pain . Pain level is high. Pain interferes with sleep. She has no history of bladder or bowel incontinence.She has trialed physical therapy and is currently doing physical therapy at [facility] with persistent pain.She states she is S/P left foot surgery on 11/05/2023 and is seeing [facility]. Her gait is altered due to ankle problems and this is impacting her low back pain.She had carpal tunnel surgery in February and May 2023. She had left shoulder replacement. She is doing better with physical therapy for her shoulder. Carlita Aguilar MD [address] [facility] , [address], [place], [address], [place] [facility] 11/29/2024 15:07:06 OBGyn Episode No OBEpisode recorded.
--- OUTSIDE RECORDS SUMMARY | 2024-12-06 11:59 | XMS_ITS | Encounter Summary ---
Author Organization [employer] [facility] Address [address] [place] [address] [address] [place] [address] Care Team Providers Care Senior Drafter Name Role Phone Unavailable Primary Care Provider Unavailabl e Reason for Visit * Reason Comments Med Refill Encounter Details Date Type Department Care Team (Late st Contact Info) Description 12/24/2023 Refill [facility] [address] [place], [place] [phone] Miguel Ángel Chong DMD [address] [place], [place] [phone] Encounter for dental examination Social History Tobacco [...] Encounter - Miguel Ángel Chong DMD - 12/24/2023 8:04 AM EDT Approving, but needs appt for additional refills. documented in this encounter Plan of Treatment Upcoming Encounters Date Type Department Care Team (Late st Contact Info) Description 12/28/2024 9:30 AM EDT Office Visit [facility] [address] [place], [place] [phone] Vinicio Quintero DDS [address] [place], [place] [phone] 01/17/2025 9:00 AM EDT Office Visit [facility] [address] [place] [address] Melissa Abreu [address] [place] [address] documented as of this encounter Visit Diagnoses Diagnosis Encounter for dental examination documented in this encounter
--- OUTSIDE RECORDS SUMMARY | 2024-12-06 11:59 | XMS_ITS | Encounter Summary ---
Author Organization [employer] [facility] Address [address] [address] [place] [address] Care Team Providers Care Plant Anatomist Name Role Phone Unavailable Primary Care Provider Unavailabl e Encounter Details Date Type Department Care Team (Late st Contact Info) Description 12/23/2023 Orders Only [facility] [address] [place] [address] Alexus Haney DDS [address] [place], [place] [phone] Social History Tobacco Use Types Packs/Day Years [...] Description 12/28/2024 9:30 AM EDT Office Visit [facility] [address] [place] [address] Vinicio Quintero, DDS [address] [place] [address] 01/17/2025 9:00 AM EDT Office Visit [facility] [address] [place] [address] Melissa Abreu [address] [place] [address] documented as of this encounter Visit Diagnoses Not on filedocumented in this encounter
--- OUTSIDE RECORDS SUMMARY | 2024-12-06 11:59 | XMS_ITS | Encounter Summary ---
Author Organization [employer] [facility] Address [address] [place] [address] [address] [place] [address] Care Team Providers Care Endband Cutter Hand Name Role Phone Unavailable Primary Care Provider Unavailabl e Reason for Visit * Reason Comments Med Change Request Encounter Details Date Type Department Care Team (Late st Contact Info) Description 07/26/2024 Refill [facility] [address] [place], [place] [phone] Miguel Ángel Chong DMD [address] [place], [place] [phone] Encounter for dental examination Social History Tobacco [...] Encounter - Miguel Ángel Chong DMD - 07/26/2024 7:54 AM EST Approving, but needs appt for additional refills. documented in this encounter Plan of Treatment Upcoming Encounters Date Type Department Care Team (Late st Contact Info) Description 12/28/2024 9:30 AM EDT Office Visit [facility] [address] [place] [address] Vinicio Quintero DDS [address] [place] [address] 01/17/2025 9:00 AM EDT Office Visit [facility] [address] [place] [address] Melissa Abreu [address] [place] [address] documented as of this encounter Visit Diagnoses Diagnosis Encounter for dental examination documented in this encounter
== END 2024-12-06 10:30 | disposition home or self-care (01) ==
LOC: HO.HPS 10:09
PROVIDERS: PCP Internal Medicine; Visit Provider Internal Medicine
DX: J44.9 Chronic obstructive pulmonary disease, unspecified (principal); R91.8 Other nonspecific abnormal finding of lung field; G47.33 Obstructive sleep apnea (adult) (pediatric); J67.9 Hypersensitivity pneumonitis due to unspecified organic dust
CPT/HCPCS: 99213

== ENCOUNTER → 2024-12-06 10:09 | Outpatient (BNVA) | payer OTHER, SELFPAY | PROVIDERS: PCP Internal Medicine; Visit Provider Internal Medicine | DX: J44.9 Chronic obstructive pulmonary disease, unspecified (principal); G47.33 Obstructive sleep apnea (adult) (pediatric); R91.8 Other nonspecific abnormal finding of lung field; J67.9 Hypersensitivity pneumonitis due to unspecified organic dust | CPT/HCPCS: 99212 ==

== ENCOUNTER 2024-12-21 08:50 | Emergency (ER) | payer OTHER, SELFPAY ==
--- NOTE | ~2024-12-21 | XR_ITS ---
EXAMINATION: XR CHEST CLINICAL INFORMATION: sob l rib pain and tenderness, cough COMPARISON: March 15, 2024. TECHNIQUE: 2 views of the chest were obtained. FINDINGS: No consolidation, pleural effusion or pneumothorax. Cardiomediastinal silhouette size is normal. Multilevel thoracolumbar spondylosis. S-shaped curvature of the thoracolumbar spine. Metallic prosthesis, left humeral head. Subchondral cyst formation in the right humeral head/glenoid right scapula. XR/XR chest 2V IMPRESSION: No acute airspace disease. Scoliosis and spondylosis, thoracolumbar spine. Electronically signed by: Adalberto Saravia MD 12/21/2024 09:50 AM EDT
[2024-12-21 09:12] VITALS: BP 136/61; PULSE 66; RESP 18; TEMP 37.3; O2SAT 99; BMI 33.3
[2024-12-21 09:37] LABS: Appearance Urine Clear; Color Urine Yellow; Glucose Urine UA Negative (Negative); Leukocyte Esterase Urine Trace (Negative); Nitrite Urine Negative (Negative); PH >= 9.0 (5.0-9.0); Specific Gravity - Urine 1.025 (1.005-1.025); UMIC TRIGGER UACC YES; Urine Blood Negative (Negative); Urine Ketones Negative (Negative); Urine Protein 30 (1+) mg/dL (Neg-Trace)
[2024-12-21 09:40] LABS: Bacteria Urine None Seen (None Seen); Hyaline Casts Urine 0-2 /LPF (0-2); RBC Urine 0-2 /HPF (0-2); Squamous Epithelial Cell Urine 0-2 /HPF (0-2); WBC Urine 0-5 /HPF (0-5)
--- NOTE | 2024-12-21 09:42 | ED_ITS ---
HPI - General Adult General Chief complaint: Upper Respiratory Symptoms Stated complaint: Pain L side Time Seen by Provider: 12/21/24 09:33 Source: patient and family (patient's daughter) Mode of arrival: ambulatory Limitations: no limitations History of Present Illness ED Provider: Nayla Verdugo PA-C HPI narrative: 54 year-old female with PMHx of COPD, asthma, SPARKLE, presents to the ED due to left sided rib pain. She states symptoms began approximately 4 days ago where she noticed increased coughing without sputum production followed by rib pain and increased rib pain with deep inspiration. She states she had been monitoring for fever at home and was never febrile. She denies recent sick contacts, chest pain, SOB, difficulty breathing, fever, nausea, vomiting, diarrhea. Onset (ago): day(s) (4) Radiation: non-radiation Severity: mild Quality: sharp Pain Consistency: constant Relieving factors: none Exacerbating factors: other (deep inspiration) Associated symptoms: cough Treatments prior to arrival: none Related Data Home Medications ?Medication ?Instructions ?Recorded ?Confirmed azelastine 137 mcg (0.1 %) nasal 2 spray intranasal BID 12/26/21 12/06/24 spray calcium citrate 1 tab PO DAILY 12/26/21 12/06/24 cholecalciferol (vitamin D3) 25 1 tab PO DAILY 12/26/21 12/06/24 mcg (1,000 unit) tablet fluticasone propionate 230 1 puff inhalation BID 12/26/21 12/06/24 mcg-salmeterol 21 mcg/actuation HFA inhaler (Advair HFA) hydroxyzine HCl 25 mg tablet 1 tab PO Q8H PRN itch 12/26/21 12/06/24 ketotifen fumarate 0.025 % (0.035 1 drp ophthalmic (eye) BID PRN itch 12/26/21 12/06/24 %) eye drops loratadine 10 mg tablet 1 tab PO DAILY 12/26/21 12/06/24 montelukast 10 mg tablet 1 tab PO BEDTIME 12/26/21 12/06/24 omeprazole 40 mg capsule,delayed 1 cap PO DAILY@0630 12/26/21 12/06/24 release tiotropium bromide 1.25 2 puff PO DAILY 12/26/21 12/06/24 mcg/actuation mist for inhalation (Spiriva Respimat) folic acid 1 mg tablet 1 mg PO DAILY 07/24/22 12/06/24 tezepelumab-ekko 210 mg/1.91 mL mg subcut 10/15/22 12/06/24 (110 mg/mL) subcutaneous syringe (Tezspire) ibuprofen 800 mg tablet 800 mg PO TID PRN 05/06/23 12/06/24 bupropion HCl 300 mg 24 hr tablet, 300 mg PO DAILY 12/22/23 12/06/24 extended release naltrexone 50 mg tablet 50 mg PO DAILY 12/22/23 12/06/24 Previous Rx's ?Medication ?Instructions ?Recorded guaifenesin 1,200 mg tablet, 1,200 mg PO BID #10 tabs 06/03/23 extended release 12 hr (Mucus Relief ER) benzonatate 100 mg capsule 100 mg PO BID PRN cough #14 caps 03/15/24 albuterol sulfate 90 mcg/actuation 2 inh inhalation Q6H PRN shortness 04/12/24 breath activated powder inhaler of breath or wheezing #1 ea guaifenesin 200 mg/5 mL oral liquid 200 mg (5 mL) PO Q4H PRN cough 04/12/24 #118 mL ipratropium 20 mcg-albuterol 100 1 puff inhalation QID COPD 30 days 11/14/24 mcg/actuation mist for inhalation #4 grams (Combivent Respimat) ipratropium bromide 0.02 % 2.5 ml inhalation QID PRN for 12/20/24 solution for inhalation wheezing #125 mL azithromycin 250 mg tablet See Rx Instructions PO .COMPLEX #6 12/21/24 tabs prednisone 20 mg tablet See Rx Instructions .Route 12/21/24 .COMPLEX 12 days #26 tabs Allergies Allergy/AdvReac Type Severity Reaction Status Date / Time latex [Latex] Allergy Mild UNKNOWN Verified 12/21/24 09:13 cats, pollen, mold Allergy Unknown Unknown Uncoded 12/21/24 09:13 Latex Allergy Unknown Unknown Uncoded 12/21/24 09:13 Review of Systems Constitutional: Constitutional: Reports no additional constitutional complaints, Denies chills, Denies fever(s) and Denies night sweats Eyes: Eyes: Reports no additional eye complaints, Denies blurry vision, Denies change in vision, Denies diplopia, Denies eye discharge, Denies loss of vision and Denies eye pain ENT: Denies dizziness Cardiovascular: Cardiovascular: Reports no additional cardiovascular complaints, Denies chest pain, Denies lightheadedness, Denies Loss of Consciousness and Denies dyspnea Respiratory: Respiratory: Reports no additional respiratory complaints, Reports cough (no sputum production) and Denies dyspnea Gastrointestinal: Gastrointestinal: Reports no additional gastrointestinal complaints, Denies abdominal pain, Denies melena, Denies hematochezia, Denies change in bowel habits and Denies change in stool character Genitourinary: Genitourinary: Denies hematuria, Denies urinary frequency, Denies dysuria, Denies urinary incontinence, Denies urinary hesitancy and Denies urinary urgency Musculoskeletal: Musculoskeletal: Reports no additional musculoskeletal complaints, Denies numbness and Denies tingling Comments: left sided rib pain with inspiration Neurologic: Denies dizziness, Denies loss of vision, Denies numbness and Denies tingling Psychiatric: Psychiatric: Reports no additional psychiatric complaints Endocrine: Endocrine: Reports no additional endocrine complaints Hematologic/Lymphatic: Hematologic/Lymphatic: Reports no additional hematologic/lymphatic complaints Allergic/Immunologic: Allergic/Immunologic: Reports no additional allergic/immunologic complaints [facility] Past Medical History Attestation statement: The following information was validated with the patient. (patient's daughter validated all information provided by the patient. ) Source: old records reviewed, obtained from family (patient's daughter provided additional history and confirmed the history provided by the patient. ) and nursing notes reviewed Medical History Allergic alveolitis Bronchitis SPARKLE (obstructive sleep apnea) Allergic rhinitis Asthma Pulmonary embolism Pulmonary cavitary lesion COPD (chronic obstructive pulmonary disease) Pulmonary cavitary lesion Asthma Surgical History H/O gastric sleeve History of partial hysterectomy History of surgery on wrist History of ankle surgery History of knee replacement Family History Family History Father Prostate cancer Social History Social History Household Members: Spouse and Family Housing: House Are you a primary palliative care physician to a significant other at home: Yes (mother) Do you presently have visiting nurse or other home services: Yes Unable to assess alcohol history related to: Unknown Alcohol intake: never Patient Tobacco Use Status: Never used Tobacco Advance Directives: Yes Advance Directives Information Provided: Yes Advance Directives on File: No Advance Directives Date on File: 12/26/21 Do you have a plan to hurt others: No Plan service: No Current occupational status: disabled Physical Exam ED Vital Signs: Vital Signs - 24 hr 12/21/24 09:12 12/21/24 10:05 12/21/24 10:19 Temperature 99.1 F Pulse Rate 66 61 61 Respiratory Rate 18 18 16 Blood Pressure 136/61 Pulse Oximetry 99 100 Oxygen Delivery Method Room Air Room Air BMI result Body Mass Index 33.3 Const General: cooperative, no acute distress, alert and awake Nutritional Appearance: well nourished Orientation/consciousness: patient oriented x3 Limitations: no limitations HENMT Head: Yes normal to inspection and Yes atraumatic Ears: hearing grossly normal bilaterally and external ears normal General nose exam: Normal external nose present, no nasal discharge noted and no epistaxis Face and sinus: Yes normal facial exam, No abrasion and No laceration Mouth: Normal oral and palatal mucosa present, no drooling and no muffled voice Eyes General: appearance normal, both eyes and all related structures Periorbital: periorbital findings normal Eyelids: Yes eyelids normal Conjunctivae: conjunctivae normal Pupils: Equal, round and reactive pupils present EOM: EOMs intact bilaterally Neck Neck: Yes normal visual inspection, Yes full ROM and Yes no lymphadenopathy Chest Chest palpation & inspection: normal inspection of the chest Resp Effort & Inspection: normal respiratory effort and able to speak in complete sentences Auscultation: clear to auscultation bilaterally Cardio Rate: regular rate Rhythm: regular rhythm Heart sounds: S1 normal heart sound present and S2 normal heart sound present GI Inspection: Yes normal to inspection Neuro General: patient oriented x3, moves all extremities and CN's II-XI intact bilaterally Cranial nerves: Yes Equal, round and reactive pupils present Cognition (Neuro): normal cognition Extrem General: Yes normal to inspection, Yes full ROM and Yes capillary refill normal Psych Appearance: grossly normal Mental Status: mental status grossly normal Affect: normal affect Attitude: cooperative Thought process: Normal thought process present Thought content: Normal thought content present Insight: Good insight present (Psych) Course Reevaluation(s) Reevaluation #1: 11:00- Patient coughing improved after DuoNeb and 60mg Solu-medrol. UA unremarkable. CXR negative for any acute process. Patient feels comfortable to discharge home. Will discharge patient with a 12 day prednisone taper and azithromycin for COPD/Asthma exacerbation. Medications Administered Discontinued Medications Generic Name Dose Route Start Last Admin Trade Name Sony PRN Reason Stop Dose Admin Albuterol/Ipratropium 3 ml 12/21/24 10:19 12/21/24 10:23 Albuterol/Iprat 2.5/0.5mg 3 Ml Ampul.Neb INHALE 12/21/24 10:20 3 ml ONCE ONE Administration Methylprednisolone Sodium Succinate 60 mg 12/21/24 09:50 12/21/24 10:03 Methylprednisolone Sod Succ 125 Mg/2 Ml Vial IM 12/21/24 09:51 60 mg ONCE ONE Administration Medical Decision Making Medical Decision Making [facility] Narrative: 54 year-old female with PMHx of COPD, asthma, SPARKLE, presents to the ED due to left sided rib pain and a cough. Patients vital signs are stable, in no acute distress and non-toxic appearing. On physical exam bilateral lungs clear to auscultation and there is no evidence of increased work of breathing. At this time suspect mild asthma/COPD exacerbation. Will obtain chest x-ray, UA, and bronchodilators protocol and reassess. Patient's urine showed no acute process. Patient's chest x-ray showed no acute process. I explained my physical exam findings as well as all test results to the patient and the patient's daughter. I answered all questions asked by the patient and the patient's daughter. Patient received IM Solu-medrol and a breathing treatment which, upon re-evaluation, she stated it helped her symptoms significantly. I stressed the importance of the patient taking her medication as directed (either prescribed or as the over the counter packaging recommends). I stressed the importance of the patient following up with her primary care provider. I stressed the importance of the patient returning to the emergency department immediately if her symptoms were to worsen or if she were to develop any dizziness, shortness of breath, difficulty breathing, chest pain, blurry vision, loss of vision, nausea, vomiting, abdominal pain, fever, chills, back pain, or any other complaints. Patient and the patient's daughter verbalized agreement and understanding with this treatment plan and discharge. Differential Diagnosis Differential Diagnoses: The differential diagnosis associated with the presentation includes Asthma exacerbation COPD exacerbation Pneumonia Costochondritis Pleurisy Admission/Observation Consideration of admission/observation: Escalation of care including admission/observation considered Patient would have been admitted to the hospital had her work up had any findings where hospital admission was appropriate and her clinical presentation warranted hospital admission. Lab Data [facility] Lab Attestation statement: I reviewed the patient's lab results. My interpretation of these results are in the [facility] Rationale portion of this note. Labs: Lab Results 12/21/24 12/21/24 Range/Units 09:25 09:26 Urine Color Yellow Urine Appearance Clear Urine pH >= 9.0 (5.0-9.0) Ur Specific [place] 1.025 (1.005-1.025) Urine Protein 30 (1+) H (Neg-Trace) mg/dL Urine Glucose (UA) Negative (Negative) mg/dL Urine Ketones Negative (Negative) mg/dL Urine Blood Negative (Negative) Urine Nitrite Negative (Negative) Ur Leukocyte Esterase Trace H (Negative) Urine RBC 0-2 (0-2) /HPF Urine WBC 0-5 (0-5) /HPF Ur Squamous Epith Cells 0-2 (0-2) /HPF Urine Bacteria None Seen (None Seen) Hyaline Casts 0-2 (0-2) /LPF Influenza Type A (PCR) NEGATIVE (Negative) Influenza Type B (PCR) NEGATIVE (Negative) RSV RNA Qual (PCR) NEGATIVE (Negative) SARS-CoV-2 RNA (RT-PCR) NEGATIVE (Negative) Independent Interpretation I performed an independent interpretation of an: Plain X-Ray (Chest) Interpretation: My interpretation is in agreement with the radiologist's impression of this imaging study. EXAMINATION: XR CHEST CLINICAL INFORMATION: sob l rib pain and tenderness, cough COMPARISON: March 15, 2024. TECHNIQUE: 2 views of the chest were obtained. FINDINGS: No consolidation, pleural effusion or pneumothorax. Cardiomediastinal silhouette size is normal. Multilevel thoracolumbar spondylosis. S-shaped curvature of the thoracolumbar spine. Metallic prosthesis, left humeral head. Subchondral cyst formation in the right humeral head/glenoid right scapula. XR/XR chest 2V IMPRESSION: No acute airspace disease. Scoliosis and spondylosis, thoracolumbar spine. Electronically signed by: Adalberto Saravia MD 12/21/2024 09:50 AM EDT RP Dictated By: Adalberto Manrique MD Signed By: Electronically signed by Adalberto Silverio MD 12/21/24 0942 Radiology Impression Discussion of test interpretation with radiology: I have reviewed the radiologist's reading. Independent Historian Clinical information obtained from an independent historian. History obtained from or confirmed by: Other (patient's daughter provided additional history and confirmed the history provided by the patient.) Prescription Management I considered prescription management with: Antibiotic (patient prescribed azithromycin for COPD/Asthma exacerbation.) Discharge Plan Discharge Clinical Impression: Asthma exacerbation in COPD, Pleurisy Patient Disposition: Home, Self-Care Instructions: Pleurisy (DC), COPD (Chronic Obstructive Pulmonary Disease) (DC) Additional Instructions: Although your chest x-ray did not show any evidence of pneumonia - given your history and examination, we are going to prescribe an antibiotic. Take your medication as prescribed. Follow up with your primary care provider. Return to the emergency department immediately if your symptoms worsen or if you develop any numbness, tingling, dizziness, shortness of breath, difficulty breathing, chest pain, blurry vision, loss of vision, nausea, vomiting, abdominal pain, fever, chills, back pain, or any other complaints. Please see the information below about our Patient Portal. If you are not yet enrolled in the [facility] Patient Portal, you will receive an enrollment email invitation following your visit to any [facility] setting. You may also self-enroll in the Patient Portal by visiting our website: [email or web address] The following information is required to access the Patient Portal: - Your [facility] Medical Record Number - Your personal home email address (must match what is in your electronic medical record, Registration staff can assist with this) - Name - Date of Capabilities of the Patient Portal: - Message some providers - View upcoming appointments - Access your health summary, medical history, and visit history - View current conditions and allergies - View procedure and lab results - View your medications, including guidelines, side effects, and precautions - Complete pre-appointment questionnaires requested by your provider - Ready summary reports of your office visits and procedures To access the Patient Portal Mobile [employer], follow these directions: - Search Beyond Verbal in the [employer] Store or [employer] Store - Download the [facility] - Search for [facility] - Enter your login/password Prescriptions: New azithromycin 250 mg tablet See Rx Instructions .ROUTE .COMPLEX Qty: 6 0RF Rx Instructions: For 250 mg dose pack: take 500 mg today (day 1), then 250 mg for 4 days (days 2-5) prednisone 20 mg tablet See Rx Instructions .ROUTE .COMPLEX 12 Days Qty: 26 0RF Rx Instructions: 20 mg orally, Take 3 tablets for 5 days THEN; Take 2 tablets for 4 days THEN; Take 1 tablet for 3 days No Action Combivent Respimat 20-100 mcg/actuation mist 1 puff inhalation QID 30 Days Qty: 4 4RF ipratropium bromide 0.02 % solution 2.5 ml inhalation QID PRN (Reason: for wheezing) Qty: 125 3RF ketotifen fumarate 0.025 % (0.035 %) drops 1 drp ophthalmic (eye) BID PRN (Reason: itch) omeprazole 40 mg capsule,delayed release(DR/EC) 1 cap PO DAILY@0630 montelukast 10 mg tablet 1 tab PO BEDTIME hydroxyzine HCl 25 mg tablet 1 tab PO Q8H PRN (Reason: itch) azelastine 137 mcg (0.1 %) aerosol,spray 2 spray intranasal BID loratadine 10 mg tablet 1 tab PO DAILY calcium citrate 200 mg (950 mg) tablet 1 tab PO DAILY Advair HFA 230-21 mcg/actuation HFA aerosol inhaler 1 puff inhalation BID cholecalciferol (vitamin D3) 25 mcg (1,000 unit) tablet 1 tab PO DAILY Spiriva Respimat 1.25 mcg/actuation mist 2 puff PO DAILY guaifenesin [Mucus Relief ER] 1,200 mg tablet extended release 12hr 1,200 mg PO BID Qty: 10 0RF benzonatate 100 mg capsule 100 mg PO BID PRN (Reason: cough) Qty: 14 0RF albuterol sulfate 90 mcg/actuation aerosol powdr breath activated 2 inh inhalation Q6H PRN (Reason: shortness of breath or wheezing) Qty: 1 0RF guaifenesin 200 mg/5 mL liquid 200 mg PO Q4H PRN (Reason: cough) Qty: 118 0RF Tezspire 210 mg/1.91 mL (110 mg/mL) syringe subcut folic acid 1 mg tablet 1 mg PO DAILY ibuprofen 800 mg tablet 800 mg PO TID PRN bupropion HCl 300 mg tablet extended release 24 hr 300 mg PO DAILY naltrexone 50 mg tablet 50 mg PO DAILY Referrals: Gt Prescott III, MD [Primary Care Provider] - Print Language: Greenlandic
[2024-12-21] MEDS: methylPREDNISolone Sod Succ 125 MG/2 ML VIAL 60 MG IM (10:03)
[2024-12-21 10:05] VITALS: PULSE 61; RESP 18; O2SAT 100
[2024-12-21 10:15] LABS: Influenza A PCR NEGATIVE (Negative); Influenza B PCR NEGATIVE (Negative); Resp Syncy Virus RNA Qual PCR NEGATIVE (Negative); SARS COV2 PCR INHOUSE NEGATIVE (Negative)
[2024-12-21 10:19] VITALS: PULSE 61; RESP 16; O2SAT 99
[2024-12-21] MEDS: Albuterol/Iprat 2.5/0.5MG 3 ML AMPUL.NEB INHALE (10:23)
[2024-12-21 11:35] VITALS: BP 128/65; PULSE 61; RESP 16; TEMP 37; O2SAT 96
--- OUTSIDE RECORDS SUMMARY | 2024-12-21 11:37 | XMS_ITS | Encounter Summary ---
Author Organization [facility] Address [address] [place] [address] Care Team Providers Care Inorganic Chemist Name Role Phone Gt Prescott MD Primary Care Provider [phone] Encounter Details Date Type Department Care Team (Late st Contact Info) Description 06/24/2024 2:30 PM EDT Hospital Encounter TH HISTORIC ENCOUNTERS [facility] CONVERSION ONLY Manny Leos MD [address] [place] [id number] Social History Tobacco Use Types Packs/Day Years [...] 8:30 AM EDT Office Visit Adult Medicine [address] [phone] Donte Patterson PA [address] [place] [address] 02/28/2025 8:00 AM EDT Office Visit Bariatric Surgery - [place] [address] [place] [address] Mitch Mckinney MD [address] [place] [address] 06/02/2025 9:00 AM EDT Office Visit Orthopedic Surgery - [place] [address] [place] [phone] Leena Obrien PA [address] [place] [address] documented as of this encounter Goals Goal [...] on filedocumented in this encounter Care Teams Inorganic Chemist Relationship Specialty Start Date End Date Gt Prescott MD [address] [place] [phone] PCP - General Internal Medicine 02/21/20 documented as of this encounter
--- OUTSIDE RECORDS SUMMARY | 2024-12-21 11:37 | XMS_ITS | Encounter Summary ---
Author Organization [employer] [facility] Address [address] [place] [address] Care Team Providers Care Assistant Dean Of Students Name Role Phone Unavailable Primary Care Provider Unavailabl e Encounter Details Date Type Department Care Team (Late st Contact Info) Description 08/20/2022 Abstract [facility] [address] [place] [address] Alexus Haney DDSilvia [address] [place] [address] Social History Tobacco Use Types Packs/Day Years [...] Description 12/28/2024 9:30 AM EDT Office Visit [facility] [address] [place] [address] Vinicio Quintero DDS [address] [place] [address] 01/17/2025 9:00 AM EDT Office Visit [facility] [address] [place] [address] Melissa Abreu [address] [place] [address] documented as of this encounter Visit Diagnoses Not on filedocumented in this encounter
--- OUTSIDE RECORDS SUMMARY | 2024-12-21 11:37 | XMS_ITS | Encounter Summary ---
Author Organization [employer] [facility] Address [address] [place] [address] Care Team Providers Care Infant Nanny Name Role Phone Unavailable Primary Care Provider Unavailabl e Encounter Details Date Type Department Care Team (Latest Contact Info) Description 04/15/2019 Abstract [facility] CONVERSIONS Dental, Provider, DDS Social History [...] 9:30 AM EDT Office Visit [facility] [address] [place] [address] Vinicio Quintero DDS [address] [place] [address] 01/17/2025 9:00 AM EDT Office Visit [facility] [address] [place] [address] Brady, Melissa [address] [place] [address] documented as of this encounter Visit Diagnoses Not on filedocumented in this encounter
--- OUTSIDE RECORDS SUMMARY | 2024-12-21 11:37 | XMS_ITS | Data Portability ---
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 [...] up in ten weeks [email or web address] Not available 04/26/2024 16:34:56 07/28/2024 07/28/2024 Codie [...] causing mild flattening of the dural sac, fzbs-ot-dtvntse e right and mild left-sided foraminal stenosis. [...] booked after insurance approval. 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 [...] causing mild flattening of the dural sac, hbbn-uq-csfsjhi e right and mild left-sided foraminal stenosis. [...] Not available 08/11/2024 17:00:50 11/14/2024 11/14/2024 Codie Fernández is a 54 year old [...] causing mild flattening of the dural sac, hmaw-rk-elqiogd e right and mild left-sided foraminal stenosis. [...] booked after insurance approval. 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 [email or web address] Not available 11/14/2024 15:21:57 12/14/2024 12/14/2024 Codie Fernández is a 54 year old woman with complaints of low back pain radiating into left lower extremity. On exam, she has pain on flexion and a positive left straight leg raising test. She has trialed physical therapy with no pain benefit. MRI Lumbar spine shows Mild disc herniation and marked degenerative facet arthropathy at L3-4 causing mild flattening of the dural sac, rjnk-cf-ngrsgyc e right and mild left-sided foraminal stenosis. [...] up in ten weeks [email or web address] Not available 12/14/2024 12:01:23 Plan of Treatment Reminders Order Date Submit Date Provider Last Modified By Organization Details Last Modified Time Details Appointments RETURN 2024 09:30A M Carlita paul MD Not available Not available Not available Lab None recorded . Referral None recorded . Procedures None recorded . Surgeries None recorded . Imaging None recorded . Medication Orders None recorded . Patient TargetsNo targets recorded. Patient Instructions Encounter Date Encounter Id Patient Instructions Last Modified By Organization Details Last Modified Time 04/26/2024 [id number] She was advised to continue activities as tolerated. [email or web address] Not available 04/26/2024 16:35:03 08/11/2024 [id number] She was advised to continue activities as tolerated. [email or web address] Not available 08/11/2024 16:59:30 12/14/2024 [id number] She was advised to continue activities as tolerated. [email or web address] Not available 12/14/2024 12:00:02 Reason for Referral None Reported. Problems Name Problem SNOMED Code Status Onset Date Resolution Date Notes Provider Name and Address Organization Details Recorded Time Low back pain 348255546 Active 2015 Carlita paul MD [address], [place], [address], [place] [facility] 6 15:50:45 Lumbosacral radiculitis 73869758 Active 2017 Carlita paul MD [address] , [address], [place], [address], [place] [facility] 8 10:17:40 Displacement of lumbar intervertebral disc without myelopathy 05790162 Active 2017 Carlita paul MD [address], [place], [address], [place] [facility] 8 10:17:41 Lumbosacral spondylosis without myelopathy 86154223 Active 2017 Carlita paul MD [address], [place], [address], [place] [facility] 8 10:17:42 Spinal stenosis of lumbar region 94985872 Active 2017 Carlita paul MD [address], [place], [address], [place] [facility] 8 10:17:43 Problem Notes None recorded. Procedures Surgical History Date Name Laterality Status Provider Name and Address Organization Details Recorded Time 12/15/19 25 Lumbar Epidural steroid injection under fluoroscopic guidance completed Carlita Aguilar MD [address] , [address], [place], [address], [place] [facility] 12/14/2024 12:00:56 08/11/20 24 Lumbar Epidural steroid injection under fluoroscopic guidance completed Carlita Aguilar MD [address] , [address], [place], [address], [place] [facility] 08/11/2024 17:00:18 06/07/20 24 total shoulder replacement completed Carlita Aguilar MD [address] , [address], [place], [address], [place] [facility] 07/28/2024 11:09:13 04/26/20 24 Lumbar Epidural steroid injection under fluoroscopic guidance completed Carlita Aguilar MD [address], [place], [address], [place] [facility] 04/26/2024 16:35:33 12/22/19 24 Lumbar Epidural steroid injection under fluoroscopic guidance completed Carlita Aguilar MD [address], [place], [address], [place] [facility] 12/22/2023 15:01:08 07/15/20 23 Lumbar Epidural steroid injection under fluoroscopic guidance completed Carlita Aguilar MD [address] , [address], [place], [address], [place] [facility] 07/15/2023 14:07:22 03/25/20 23 Lumbar Epidural steroid injection under fluoroscopic guidance completed Carlita Aguilar MD [address] [facility] , [address], [place], [address], [place] [facility] 03/25/2023 10:50:21 12/04/19 23 Lumbar Epidural steroid injection under fluoroscopic guidance completed Carlita Aguilar MD [address] [facility] , [address], [place], [address], [place] [facility] 12/03/2022 10:16:53 07/29/20 22 Lumbar Epidural steroid injection under fluoroscopic guidance completed Carlita Aguilar MD [address], [place], [address], [place] [facility] 07/29/2022 09:04:50 03/11/20 22 Lumbar Epidural steroid injection under fluoroscopic guidance completed Carlita Aguilar MD [address], [place], [address], [place] [facility] 03/11/2022 14:38:59 09/03/19 22 Radiofrequency of Lumbar/Sacral medial branches supplying the facets under fluoroscopic guidance completed Carlita Aguilar MD [address], [place], [address], [place] [facility] 09/03/2021 15:52:43 05/29/20 21 Fluoroscopic Guided Lumbar Facet Steroid Injections of levels completed Carlita Aguilar MD [address] , [address], [place], [address], [place] [facility] 05/29/2021 10:20:51 12/13/19 21 Fluoroscopic Guided Lumbar Facet Steroid Injections of levels completed Carlita Aguilar MD [address], [place], [address], [place] [facility] 12/12/2020 13:57:08 10/03/19 21 Lumbar Epidural steroid injection under fluoroscopic guidance completed Carlita Aguilar MD [address] , [address], [place], [address], [place] [facility] 10/03/2020 10:00:24 07/11/20 20 Lumbar Epidural steroid injection under fluoroscopic guidance completed Carlita Aguilar MD [address] , [address], [place], [address], [place] [facility] 07/11/2020 10:28:54 06/13/20 20 Fluoroscopic Guided Lumbar Facet Steroid Injections of levels completed Carlita Aguilar MD [address], [place], [address], [place] [facility] 06/13/2020 10:06:27 02/21/20 20 Lumbar Epidural steroid injection under fluoroscopic guidance completed Carlita Aguilar MD [address], [place], [address], [place] [facility] 02/21/2020 10:32:02 10/26/19 20 Fluoroscopic Guided Lumbar Facet Steroid Injections of levels completed Carlita Aguilar MD [address] , [address], [place], [address], [place] [facility] 10/26/2019 14:00:13 08/31/19 20 Lumbar Epidural steroid injection under fluoroscopic guidance completed Carlita Aguilar MD [address], [place], [address], [place] [facility] 09/05/2019 11:29:25 06/08/20 19 Fluoroscopic Guided Lumbar Facet Steroid Injections of levels completed Carlita Aguilar MD [address] , [address], [place], [address], [place] [facility] 06/10/2019 14:46:56 05/20/20 19 arthrodesis of foot completed Carlita Aguilar MD [address] , [address], [place], [address], [place] [facility] 06/08/2019 09:51:34 04/13/20 19 Lumbar Epidural steroid injection under fluoroscopic guidance completed Carlita Aguilar MD [address], [place], [address], [place] [facility] 04/20/2019 16:00:55 01/13/20 19 Lumbar Epidural steroid injection under fluoroscopic guidance completed Carlita Aguilar MD [address], [place], [address], [place] [facility] 01/12/2019 13:18:20 09/22/19 19 Lumbar Epidural steroid injection under fluoroscopic guidance completed Carlita Aguilar MD [address], [place], [address], [place] [facility] 09/23/2018 11:32:09 05/18/20 18 Lumbar Epidural steroid injection under fluoroscopic guidance completed Carlita Aguilar MD [address] , [address], [place], [address], [place] [facility] 05/18/2018 16:07:36 11/25/19 18 Lumbar Epidural steroid injection under fluoroscopic guidance completed Carlita Aguilar MD [address], [place], [address], [place] [facility] 11/24/2017 11:24:09 06/30/20 17 Lumbar Epidural steroid injection under fluoroscopic guidance completed Carlita Aguilar MD [address], [place], [address], [place] [facility] 07/03/2017 08:59:37 03/10/20 17 Lumbar Epidural steroid injection under fluoroscopic guidance completed Carlita Aguilar MD [address] , [address], [place], [address], [place] [facility] 03/10/2017 14:35:03 11/27/19 17 Lumbar Epidural steroid injection under fluoroscopic guidance completed Carlita Aguilar MD [address] , [address], [place], [address], [place] [facility] 11/26/2016 10:15:50 07/22/20 16 Lumbar Epidural steroid injection under fluoroscopic guidance completed Carlita Aguilar MD [address] , [address], [place], [address], [place] [facility] 07/22/2016 [...] tunnel surgery completed Carlita Aguilar MD [address] , [address], [place], [address], [place] [facility] 06/26/2023 09:11:01 Imaging Results None recorded. Procedure Notes None recorded. Medical Equipment None Reported. Allergies Allergen ID Allergen Name Allergen Category Reaction Reaction Severity Criticality Documentation Date Start Date Code Code System Note Provider Name and Address Organization Details Recorded Time 94423 latex environme nt,medica tion itching rash Not available Not available Not available 09/22/2018 20964 91 RxNorm Kerrie rutledge [place] [facility] [place] [...] Available amoxicill in 500 mg capsule TAKE 1 CAPSULE (500 MG) BY MOUTH EVERY 8 HOURS FOR 7 DAYS 12/14 completed Not Available Not Available Not Available methocarb lori 500 mg tablet 02/20 [...] 5 mg tablet TAKE DAILY W/FOOD 1 [id number] S,THEN 1/2TAB DAILY X7DAYS, THEN 1/2TAB EVERY [...] 8 HOURS IF NEEDED FOR MODERATE PAIN FOR 10 DAYS. DO NOT CRUSH/CH EW/SPLIT active Not Available Not Available No t Available oxycodone -acetamin ophen 5 mg-325 mg [...] AREA 2 TIMES DAILY FOR 7-10 DAYS. 12/14 completed Not Available Not Available Not Available triamcino lone acetonide 55 mcg nasal [...] ibuprofen 600 mg tablet TAKE 1 TABLET (600 MG) BY MOUTH EVERY 6 (SIX) HOURS IF NEEDED FOR MILD PAIN FOR UP TO 10 DAYS. active Not Available Not Available No t Available levofloxa isra 500 mg tablet 06/30 [...] solution for inhalatio n INHALE 1 PUFF 4 TIMES A DAY FOR COPD FOR 30 DAYS active Not Available Not Available No [...] 96 % 118 mm[Hg] 67 mm[Hg] Almita [facility] 4 11:23:25 Date Recorded Body height Body mass index (BMI) Body weight Heart rate Oxygen saturation Oxygen saturation in Arterial blood by Pulse oximetry Pain severity - 0-10 verbal numeric rating [Score] - Reported Systolic blood pressure Diastolic blood pressure Provider Name and Address Organization Details Last Updated DateTime 4 154.94 cm 32.7 kg/m2 58008.4 8 g 69 /min 98 % 98 % 6 144 mm[Hg] 69 mm[Hg] Carlita paul MD [address], [place], [address], [place] [facility] [...] Updated DateTime 5 154.94 cm 31.9 kg/m2 22149.1 1 g 71 /min 98 % 98 % 3 116 mm[Hg] 81 mm[Hg] Carlita paul MD [address] , [address], [place], [address], [place] [facility] 5 11:12:48 Date Recorded Body height Pain severity - 0-10 verbal numeric rating [Score] - Reported Heart rate Oxygen saturation Oxygen saturation in Arterial blood by Pulse oximetry Systolic blood pressure Diastolic blood pressure Provider Name and Address Organization Details Last Updated DateTime 5 154.94 cm 4 78 /min 97 % 97 % 123 mm[Hg] 70 mm[Hg] Susan Wright [facility] 5 11:40:24 Social History Question Answer Notes LastModified by Organizat ion Details LastModified Time Tobacco Smoking Status Never Smoker Not Available [facility] 06/08/2020 03:16:12 What Is Your Level Of Alcohol Consumption? None [id number] Information not available 06/08/2020 Are You Currently Employed? No [id number] Information not available 06/08/2020 Which Illicit Or Recreational Drugs Have You Used? No [id number] Information not available 06/08/2020 Education 8 [email or web address] Information no t available 07/09/2016 Live Alone Or With Others? With Others And 3 Children [email or web address] Information not available 07/09/2016 Marital Status Informatio n not available 07/09/2016 What Was The Date Of Your Most Recent Tobacco Screening? 01/12/2019 [id number] Information not available 06/08/2020 Sex: Unknown Functional [...] SNOMED-CT Code Diagnosis ICD10 Code Diagnosis Note [id number] Carlita Aguilar MD PAIN OFFICE [address] [place] [address] 07/09/2016 13:59:18 07/13/2016 19:15:18 Lumbosacral radiculitis 40807849 M54.17 Displaceme nt of lumbar intervertebral disc without myelopathy 58571498 M51.26 Lumbosacra l spondylosis without myelopathy 41142809 M47.817 Spinal kj nosis of lumbar region 13410632 M48.06 [id number] Carlita Aguilar MD PAIN OFFICE [address] [place] [address] 07/22/2016 14:36:09 07/23/2016 08:49:04 Lumbosacral radiculitis 34144843 M54.17 Spinal kj nosis of lumbar region 25433343 M48.06 Lumbosacra l spondylosis without myelopathy 83253012 M47.817 Displaceme nt of lumbar intervertebral disc without myelopathy 35445730 M51.26 [id number] Carlita Aguilar MD PAIN OFFICE [address] [place] [address] 08/21/2016 09:37:12 08/21/2016 11:16:14 Lumbosacral radiculitis 84361728 M54.17 Displaceme nt of lumbar intervertebral disc without myelopathy 56540791 M51.26 Lumbosacra l spondylosis without myelopathy 53166957 M47.817 Spinal kj nosis of lumbar region 05947503 M48.06 [id number] Carlita Aguilar MD PAIN OFFICE [address] [place] [address] 11/26/2016 09:05:49 11/26/2016 10:32:43 Lumbosacral radiculitis 71252530 M54.17 Displaceme nt of lumbar intervertebral disc without myelopathy 20020530 M51.26 Lumbosacra l spondylosis without myelopathy 94542860 M47.817 Spinal kj nosis of lumbar region 19490714 M48.06 [id number] Carlita Aguilar MD PAIN OFFICE [address] [place] [address] 03/10/2017 13:13:41 03/11/2017 09:11:35 Lumbosacral radiculitis 25848864 M54.17 Displaceme nt of lumbar intervertebral disc without myelopathy 20020530 M51.26 Lumbosacra l spondylosis without myelopathy 30995311 M47.817 Spinal kj nosis of lumbar region 91680611 M48.06 [id number] Carlita Aguilar MD PAIN OFFICE [address] [place] [address] 06/30/2017 14:07:57 07/03/2017 09:19:34 Lumbosacral radiculitis 41613478 M54.17 Displaceme nt of lumbar intervertebral disc without myelopathy 76122134 M51.26 Lumbosacra l spondylosis without myelopathy 37475686 M47.817 Spinal kj nosis of lumbar region 67640234 M48.062 [id number] Carlita Aguilar MD PAIN OFFICE [address] [place] [address] 11/02/2017 09:59:08 11/02/2017 10:18:49 Lumbosacral radiculitis 89056803 M54.17 Displaceme nt of lumbar intervertebral disc without myelopathy 80501780 M51.26 Lumbosacra l spondylosis without myelopathy 97864559 M47.817 Spinal kj nosis of lumbar region 30542716 M48.062 [id number] Carlita Aguilar MD PAIN OFFICE [address] [employer] [address] [place] [address] 11/24/2017 10:57:35 11/24/2017 14:35:43 Lumbosacral radiculitis 65606121 M54.17 Displaceme nt of lumbar intervertebral disc without myelopathy 09463798 M51.26 Lumbosacra l spondylosis without myelopathy 23825314 M47.817 Spinal kj nosis of lumbar region 55790556 M48.062 [id number] Carlita Aguilar MD PAIN OFFICE [address] [employer] [address] 05/18/2018 09:59:30 05/18/2018 16:10:36 Lumbosacral radiculitis 88227598 M54.17 Displaceme nt of lumbar intervertebral disc without myelopathy 13675513 M51.26 Lumbosacra l spondylosis without myelopathy 38768927 M47.817 Spinal kj nosis of lumbar region 99492802 M48.062 [id number] Carlita Aguilar MD PAIN OFFICE [address] [place] [address] 09/22/2018 09:38:48 09/23/2018 11:34:42 Lumbosacral radiculitis 89445445 M54.17 Displaceme nt of lumbar intervertebral disc without myelopathy 33599933 M51.26 Lumbosacra l spondylosis without myelopathy 43496501 M47.817 Spinal kj nosis of lumbar region 23137535 M48.062 [id number] Carlita Aguilar MD PAIN OFFICE [address] [employer] [place] [address] 01/12/2019 11:04:15 01/12/2019 13:20:35 Lumbosacral radiculitis 35329350 M54.17 Displaceme nt of lumbar intervertebral disc without myelopathy 30346070 M51.26 Lumbosacra l spondylosis without myelopathy 43997845 M47.817 Spinal kj nosis of lumbar region 25981497 M48.062 [id number] Carlita Aguilar MD PAIN OFFICE [address] [place] [address] 02/11/2019 08:47:12 02/28/2019 13:23:31 Lumbosacral radiculitis 59133057 M54.17 Displaceme nt of lumbar intervertebral disc without myelopathy 36257588 1. Lumbosacra l spondylosis without myelopathy 54212042 M47.817 Spinal kj nosis of lumbar region 99655379 M48.062 [id number] Carlita Aguilar MD PAIN OFFICE [address] [place] [address] 04/13/2019 09:43:44 04/20/2019 16:03:11 Lumbosacral radiculitis 27343927 M54.17 Displaceme nt of lumbar intervertebral disc without myelopathy 20020530. Lumbosacra l spondylosis without myelopathy 97073710 M47.817 Spinal kj nosis of lumbar region 52467211 M48.062 13977 Carlita Aguilar MD PAIN OFFICE [address] [place] [address] 06/08/2019 09:39:51 06/10/2019 14:50:31 Lumbosacral radiculitis 53610656 M54.17 Displaceme nt of lumbar intervertebral disc without myelopathy 20020530 M5.26 Lumbosacra l spondylosis without myelopathy 90507166 M47.817 Spinal kj nosis of lumbar region 91231416 M48.062 [id number] Carlita Aguilar MD PAIN OFFICE [address] [place] [address] 08/01/2019 09:43:56 08/05/2019 14:50:16 Lumbosacral radiculitis 79292870 M54.17 Displaceme nt of lumbar intervertebral disc without myelopathy 20020530 M51.26 Lumbosacra l spondylosis without myelopathy 90266243 M47.817 Spinal kj nosis of lumbar region 88041128 M48.062 [id number] Carlita Aguilar MD PAIN OFFICE [address] [facility] [place] [address] 08/31/2019 09:15:58 09/05/2019 11:31:14 Lumbosacral radiculitis 90502371 M54.17 Displaceme nt of lumbar intervertebral disc without myelopathy 23588197 M51.26 Lumbosacra l spondylosis without myelopathy 20373515 M47.817 Spinal kj nosis of lumbar region 82126190 M48.062 [id number] Carlita Aguilar MD PAIN OFFICE [address] [facility] [place] [address] 10/26/2019 10:33:53 10/26/2019 14:04:23 Lumbosacral radiculitis 41688205 M54.17 Displaceme nt of lumbar intervertebral disc without myelopathy 01867292 M51.26 Lumbosacra l spondylosis without myelopathy 06296422 M47.817 Spinal kj nosis of lumbar region 90501511 M48.062 [id number] Carlita Aguilar MD PAIN OFFICE [address] [facility] [place] [address] 02/21/2020 10:01:36 02/21/2020 10:34:34 Lumbosacral radiculitis 15769491 M54.17 Displaceme nt of lumbar intervertebral disc without myelopathy 20020530 M51.26 Lumbosacra l spondylosis without myelopathy 37397773 M47.817 Spinal kj nosis of lumbar region 56924898 M48.062 [id number] Carlita Aguilar MD PAIN OFFICE [address] [facility] [place] [address] 03/26/2020 13:30:06 03/27/2020 14:14:35 Lumbosacral radiculitis 59847570 M54.17 Displaceme nt of lumbar intervertebral disc without myelopathy 81237905 M51.26 Lumbosacra l spondylosis without myelopathy 78747007 M47.817 Spinal kj nosis of lumbar region 98772570 M48.062 69419 Carlita Aguilar MD [facility] PAIN OFFICE [address] [place] [address] 05/09/2020 09:32:27 05/09/2020 15:34:23 Lumbosacral radiculitis 38693133 M54.17 Displaceme nt of lumbar intervertebral disc without myelopathy 71784329 M51.26 Lumbosacra l spondylosis without myelopathy 64672544 M47.817 Spinal kj nosis of lumbar region 72143891 M48.062 97574 Carlita Aguilar MD [facility] PAIN OFFICE [address] [place] [address] 06/13/2020 09:38:23 06/13/2020 10:36:59 Lumbosacral radiculitis 40926025 M54.17 Displaceme nt of lumbar intervertebral disc without myelopathy 99360600 M51.26 Lumbosacra l spondylosis without myelopathy 13403176 M47.817 Spinal kj nosis of lumbar region 96622998 M48.062 [id number] Carlita Aguilar MD [facility] PAIN OFFICE [address] [place] [address] 07/11/2020 09:09:30 07/11/2020 10:56:32 Lumbosacral radiculitis 35924776 M54.17 Displaceme nt of lumbar intervertebral disc without myelopathy 91920921 M51.26 Lumbosacra l spondylosis without myelopathy 36431690 M47.817 Spinal kj nosis of lumbar region 36630082 M48.062 79988 Carlita Aguilar MD [facility] PAIN OFFICE [address] [place] [address] 10/01/2020 15:36:47 10/01/2020 15:48:00 Displacement of lumbar intervertebral disc without myelopathy 24038669 M51.26 Lumbosacra l radiculitis 56460744 M54.17 12244 Carlita Aguilar MD [facility] PAIN OFFICE [address] [facility] [place] [address] 10/03/2020 09:31:03 10/03/2020 10:06:13 Lumbosacral radiculitis 35753138 M54.17 Displaceme nt of lumbar intervertebral disc without myelopathy 87052441 M51.26 Lumbosacra l spondylosis without myelopathy 85802421 M47.817 Spinal kj nosis of lumbar region 41733444 M48.062 52041 Carlita Aguilar MD PAIN OFFICE [address] [employer] [place] [address] 11/22/2020 10:56:55 11/23/2020 10:04:47 Lumbosacral radiculitis 56443457 M54.17 Displaceme nt of lumbar intervertebral disc without myelopathy 30069078 M51.26 Lumbosacra l spondylosis without myelopathy 33303625 M47.817 Spinal kj nosis of lumbar region 78858845 M48.062 70038 Carlita Aguilar MD PAIN OFFICE [address] [place] [address] 12/12/2020 13:06:16 12/12/2020 16:02:14 Lumbosacral radiculitis 20434693 M54.17 Displaceme nt of lumbar intervertebral disc without myelopathy 63507310 M51.26 Lumbosacra l spondylosis without myelopathy 47491009 M47.817 Spinal kj nosis of lumbar region 21164159 M48.062 05538 Carlita Aguilar MD PAIN OFFICE [address] [place] [address] 01/09/2021 14:00:49 01/09/2021 14:07:36 Lumbosacral radiculitis 61385845 M54.17 Displaceme nt of lumbar intervertebral disc without myelopathy 64052894 M51.26 Lumbosacra l spondylosis without myelopathy 61486092 M47.817 Spinal kj nosis of lumbar region 90382262 M48.062 [id number] Carlita Aguilar MD PAIN OFFICE [address] [facility] [place] [address] 05/29/2021 09:55:12 05/29/2021 10:26:38 Lumbosacral radiculitis 41642079 M54.17 Displaceme nt of lumbar intervertebral disc without myelopathy 40751699 M51.26 Lumbosacra l spondylosis without myelopathy 97811697 M47.817 Spinal kj nosis of lumbar region 41132306 M48.062 [id number] Carlita Aguilar MD PAIN OFFICE [address] [place] [address] 06/28/2021 09:03:36 06/28/2021 09:25:12 Lumbosacral radiculitis 50257223 M54.17 Displaceme nt of lumbar intervertebral disc without myelopathy [id number] M51.26 Lumbosacra l spondylosis without myelopathy 57067208 M47.817 Spinal kj nosis of lumbar region 93698321 M48.062 [id number] Carlita Aguilar MD PAIN OFFICE [address] [place] [address] 09/03/2021 13:12:29 09/03/2021 16:09:38 Lumbosacral radiculitis 03031912 M54.17 Displaceme nt of lumbar intervertebral disc without myelopathy 07360108 M51.26 Lumbosacra l spondylosis without myelopathy 15377469 M47.817 Spinal kj nosis of lumbar region 56944974 M48.062 [id number] Carlita Aguilar MD PAIN OFFICE [address] [place] [address] 10/07/2021 09:03:04 10/07/2021 09:22:08 Lumbosacral radiculitis 84000012 M54.17 Displaceme nt of lumbar intervertebral disc without myelopathy 72171027 M51.26 Lumbosacra l spondylosis without myelopathy 98576039 M47.817 Spinal kj nosis of lumbar region 78732334 M48.062 [id number] Carlita Aguilar MD PAIN OFFICE [address] [place] [address] 02/27/2022 14:14:40 02/27/2022 15:01:06 Lumbosacral radiculitis 85292270 M54.17 Displaceme nt of lumbar intervertebral disc without myelopathy 32674557 M51.26 Lumbosacra l spondylosis without myelopathy 19990736 M47.817 Spinal kj nosis of lumbar region 52077397 M48.062 [id number] Carlita Aguilar MD PAIN OFFICE [address] [place] [address] 03/11/2022 14:10:41 03/11/2022 14:44:15 Lumbosacral radiculitis 64709914 M54.17 Displaceme nt of lumbar intervertebral disc without myelopathy 15427682 M51.26 Lumbosacra l spondylosis without myelopathy 96434967 M47.817 Spinal kj nosis of lumbar region 38029013 M48.062 [id number] Carlita Aguilar MD PAIN OFFICE [address] [place] [address] 06/02/2022 14:36:35 06/02/2022 15:13:52 Lumbosacral radiculitis 33784170 M54.17 Displaceme nt of lumbar intervertebral disc without myelopathy 86833077 M51.26 Lumbosacra l spondylosis without myelopathy 39155248 M47.817 Spinal kj nosis of lumbar region 01424251 M48.062 [id number] Carlita Aguilar MD PAIN OFFICE [address] [place] [address] 07/01/2022 10:50:13 07/01/2022 14:03:13 Lumbosacral radiculitis 87277575 M54.17 Displaceme nt of lumbar intervertebral disc without myelopathy 57529003 M51.26 Lumbosacra l spondylosis without myelopathy 19338467 M47.817 Spinal kj nosis of lumbar region 81316628 M48.062 [id number] Carlita Aguilar MD PAIN OFFICE [address] [place] 9 07/29/2022 08:27:40 07/29/2022 09:10:29 Lumbosacral radiculitis 10998993 M54.17 Displaceme nt of lumbar intervertebral disc without myelopathy 68827364 M51.26 Lumbosacra l spondylosis without myelopathy 00736312 M47.817 Spinal kj nosis of lumbar region 42393781 M48.062 [id number] Carlita Aguilar MD [facility] PAIN OFFICE [address] [place] [address] 10/23/2022 08:32:02 10/23/2022 11:04:01 Lumbosacral radiculitis 45231410 M54.17 Displaceme nt of lumbar intervertebral disc without myelopathy 10290982 M51.26 Lumbosacra l spondylosis without myelopathy 94786095 M47.817 Spinal kj nosis of lumbar region 25942346 M48.062 [id number] Carlita Aguilar MD PAIN OFFICE [address] [place] [address] 12/03/2022 08:53:57 12/03/2022 10:54:32 Lumbosacral radiculitis 52702057 M54.17 Displaceme nt of lumbar intervertebral disc without myelopathy 20020530. Lumbosacra l spondylosis without myelopathy 00245522 M47.817 Spinal kj nosis of lumbar region 05342802 M48.062 [id number] Carlita Aguilar MD PAIN OFFICE [address] [place] [address] 02/19/2023 09:18:24 02/19/2023 10:31:40 Spinal stenosis of lumbar region 49961907 M48.062 Displaceme nt of lumbar intervertebral disc without myelopathy 200205301. Lumbosacra l radiculitis 03336087 M54.17 Lumbosacra l spondylosis without myelopathy 22263689 M47.817 [id number] Carlita Aguilar MD PAIN OFFICE [address] [place] [address] 03/25/2023 09:02:29 03/25/2023 11:21:54 Lumbosacral radiculitis 49300658 M54.17 Displaceme nt of lumbar intervertebral disc without myelopathy 75517973 M51. Lumbosacra l spondylosis without myelopathy 37120376 M47.817 Spinal kj nosis of lumbar region 12649400 M48.062 [id number] Carlita Aguilar MD [facility] PAIN OFFICE [address] [place] [address] 06/26/2023 08:48:28 06/26/2023 10:32:50 Spinal stenosis of lumbar region 91800097 M48.062 Displaceme nt of lumbar intervertebral disc without myelopathy 45596627 M51.26 Lumbosacra l radiculitis 06726281 M54.17 Lumbosacra l spondylosis without myelopathy 49752924 M47.817 [id number] Carlita Aguilar MD [facility] PAIN OFFICE [address] [place] [address] 07/15/2023 10:27:39 07/15/2023 15:36:47 Spinal stenosis of lumbar region 27251082 M48.062 Lumbosacra l radiculitis 04921609 M54.17 Displaceme nt of lumbar intervertebral disc without myelopathy 61951515 M51.26 Lumbosacra l spondylosis without myelopathy 68788425 M47.817 [id number] Carlita Aguilar MD [facility] PAIN OFFICE [address] [place] [address] 10/16/2023 08:40:15 10/16/2023 10:13:18 Spinal stenosis of lumbar region 91868261 M48.062 Displaceme nt of lumbar intervertebral disc without myelopathy 46476353 M51.26 Lumbosacra l radiculitis 27233586 M54.17 Lumbosacra l spondylosis without myelopathy 71495099 M47.817 [id number] Carlita Aguilar MD [facility] PAIN OFFICE [address] [place] [address] 12/22/2023 14:38:42 12/22/2023 15:55:19 Spinal stenosis of lumbar region 83322873 M48.062 Lumbosacra l radiculitis 05817362 M54.17 Displaceme nt of lumbar intervertebral disc without myelopathy 27539742 M51.26 Lumbosacra l spondylosis without myelopathy 67802924 M47.817 [id number] Carlita Aguilar MD [facility] PAIN OFFICE [address] [facility] [place] [address] 03/23/2024 14:43:41 03/23/2024 16:19:28 Lumbosacral radiculitis 96851729 M54.17 Displaceme nt of lumbar intervertebral disc without myelopathy 81591112 M51.26 Spinal kj nosis of lumbar region 12699607 M48.062 Lumbosacra l spondylosis without myelopathy 21104148 M47.817 [id number] Carlita Aguilar MD [facility] PAIN OFFICE [address] [place] [address] 04/26/2024 11:20:20 04/26/2024 16:39:44 Spinal stenosis of lumbar region 75545943 M48.062 Lumbosacra l radiculitis 46693691 M54.17 Displaceme nt of lumbar intervertebral disc without myelopathy 21879552 M51.26 Lumbosacra l spondylosis without myelopathy 21303797 M47.817 [id number] Carlita Aguilar MD [facility] PAIN OFFICE [address] [place] [address] 07/28/2024 10:57:06 07/28/2024 16:19:19 Lumbosacral radiculitis 50795328 M54.17 Displaceme nt of lumbar intervertebral disc without myelopathy 59043351 M51.26 Spinal kj nosis of lumbar region 45318922 M48.062 Lumbosacra l spondylosis without myelopathy 00420133 M47.817 [id number] Carlita Aguilar MD [facility] PAIN OFFICE [address] [place] [address] 08/11/2024 10:59:11 08/11/2024 17:07:59 Spinal stenosis of lumbar region 60680255 M48.062 Lumbosacra l radiculitis 94757956 M54.17 Displaceme nt of lumbar intervertebral disc without myelopathy 66332987 M51.26 Lumbosacra l spondylosis without myelopathy 13680513 M47.817 [id number] Carlita Aguilar MD [facility] PAIN OFFICE [address] [place] [address] 11/14/2024 11:07:01 11/14/2024 15:22:28 Lumbosacral radiculitis 10027861 M54.17 Spinal kj nosis of lumbar region 32111693 M48.062 Displaceme nt of lumbar intervertebral disc without myelopathy 16138880 M51.26 Lumbosacra l spondylosis without myelopathy 29311373 M47.817 [id number] Carlita Aguilar MD [facility] PAIN OFFICE [address] [place] [address] 12/14/2024 11:21:01 12/14/2024 16:02:11 Lumbosacral radiculitis 58654639 M54.17 Spinal kj nosis of lumbar region 72913361 M48.062 Displaceme nt of lumbar intervertebral disc without myelopathy 13534240 M51.26 Lumbosacra l spondylosis without myelopathy 61578261 M47.817 Health Concerns Section Related Observation LastModified by Organization Detai ls LastModified Time None Recorded Concern Status LastModified by Organization Details LastModified Time None Recorded Advance Directives Directive None Recorded Payers Encounter Date Sequence Insurance Name Policy Number Policy Chatterjee Covered Member ID Chatterjee Member ID Guarantor Name 04/26/2024 1 [facility] (MEDICAID REPLACEMENT - [place]MO[place] [id number] Codie Fernández 07/28/2024 1 [facility] (MEDICAID REPLACEMENT - [place]MO[place] [id number] Codie Fernández 08/11/2024 1 [facility] (MEDICAID REPLACEMENT - [place]MO) [place] [id number] Codie Fernández 11/14/2024 1 [facility] (MEDICAID REPLACEMENT - [place]MO) [place] [id number] Codie Fernández 12/14/2024 1 [facility] (MEDICAID REPLACEMENT - HMO) [place] [id number] Codie Fernández Notes Date Note Type Note Provider Name and Address Organization Details Recorded Time 04/26/2024 text/html She is here for a lumbar epidural steroid injection under fluoroscopic guidance. Carlita Aguilar MD [address] [facility] , [address], [place], [address], [place] [facility] 04/26/2024 16:43:00 [...] foot surgery on 11/05/2023 and is seeing [facility]. Her gait is altered due to ankle problems and this is impacting her low back pain.She had carpal tunnel surgery in February and May 2023. She had left shoulder replacement. She is doing better with physical therapy for her shoulder. Carlita Aguilar MD [address] [facility] , [address], [place], [address], [place] [facility] 07/29/2024 09:59:27 08/11/2024 text/html She is here for a lumbar epidural steroid injection under fluoroscopic guidance. Carlita Aguilar MD [address] [facility] , [address], [place], [address], [place] [facility] 08/11/2024 17:11:07 [...] foot surgery on 11/05/2023 and is seeing [facility] surgeons. Her gait is altered due to ankle problems and this is impacting her low back pain.She had carpal tunnel surgery in February and May 2023. She had left shoulder replacement. She is doing better with physical therapy for her shoulder. Carlita Aguilar MD [address] [facility] , [address], [place], [address], [facility] - [facility] Management 11/29/2024 15:07:06 12/14/2024 text/html She is here for a lumbar epidural steroid injection under fluoroscopic guidance. Carlita Aguilar MD [address] [facility] , [address], [place], [address], [facility] - Pain Management 12/14/2024 16:10:36 OBGyn Episode No OBEpisode recorded.
--- OUTSIDE RECORDS SUMMARY | 2024-12-21 11:37 | XMS_ITS | Encounter Summary ---
Author Organization [employer] [facility] Address [address] [facility] 7t [place] [address] Care Team Providers Care Architectural Sales Consultant Name Role Phone Unavailable Primary Care Provider Unavailabl e Reason for Visit * Reason Comments Med Refill Encounter Details Date Type Department Care Team (Late st Contact Info) Description 09/30/2022 Refill [facility] ADULT DENTAL [address] [place] [address] Alexus Haney DDS [address] [place], [place] [phone] Pain (Primary Dx) Social History Tobacco Use [...] Description 12/28/2024 9:30 AM EDT Office Visit [facility] ADULT DENTAL [address] [place] [address] Vinicio Quintero DDS [address] [place] [address] 01/17/2025 9:00 AM EDT Office Visit [facility] ADULT DENTAL [address] [place] [address] Melissa Abreu [address] [place] [address] documented as of this encounter Visit Diagnoses Diagnosis Pain- Primary Generalized pain documented in this encounter
--- OUTSIDE RECORDS SUMMARY | 2024-12-21 11:37 | XMS_ITS | Encounter Summary ---
Author Organization [employer] [facility] Address [address] [place] [address] [address] [address] Care Team Providers Care Appeals Manager Name Role Phone Unavailable Primary Care Provider Unavailabl e Reason for Visit * Reason Comments Med Refill Encounter Details Date Type Department Care Team (Late st Contact Info) Description 12/20/2024 Refill [facility] ADULT DENTAL [address] [place] [address] Alexus Haney DDS [address] [place] [address] Social History Tobacco Use Types Packs/Day Years [...] Description 12/28/2024 9:30 AM EDT Office Visit [facility] ADULT DENTAL [address] [place] [address] Vinicio Quintero DDS [address] [place] [address] 01/17/2025 9:00 AM EDT Office Visit [facility] ADULT DENT[facility] [address] [place] [address] Melissa Abreu [address] [place] [address] documented as of this encounter Visit Diagnoses Not on filedocumented in this encounter
--- OUTSIDE RECORDS SUMMARY | 2024-12-21 11:37 | XMS_ITS | Encounter Summary ---
Author Organization [facility] Address [address] [facility] [address] [place] [address] Care Team Providers Care Trial Paralegal Name Role Phone Unavailable Primary Care Provider Unavailabl e Encounter Details Date Type Department Care Team (Latest Contact Info) Description 08/21/2020 Abstract [facility] CONVERSIONS Dental, Provider, DDS Social [...] Description 12/28/2024 9:30 AM EDT Office Visit [facility] ADULT DENTAL [address] [place] [address] Vinicio Quintero DDS [address] [place] [address] 01/17/2025 9:00 AM EDT Office Visit [facility] ADULT DENTAL [address] [place] [address] Brady, Melissa [address] [place] [address] documented as of this encounter Visit Diagnoses Not on filedocumented in this encounter
--- OUTSIDE RECORDS SUMMARY | 2024-12-21 11:37 | XMS_ITS | Encounter Summary ---
Author Organization [email or web address] [facility] Address [address] [facility] 7t [place] [address] Care Team Providers Care Deputy Assessor Name Role Phone Unavailable Primary Care Provider Unavailabl e Encounter Details Date Type Department Care Team (Latest Contact Info) Description 06/25/2021 Abstract [facility] CONVERSIONS Dental, Provider, DDS Social History Tobacco [...] 9:30 AM EDT Office Visit [facility] ADULT DENTAL [address] [place] [address] Vinicio Quintero DDS [address] [place] [address] 01/17/2025 9:00 AM EDT Office Visit [facility] ADULT DENTAL [address] [place] [address] Brady, Melissa [address] [place] [address] documented as of this encounter Visit Diagnoses Not on filedocumented in this encounter
--- OUTSIDE RECORDS SUMMARY | 2024-12-21 11:38 | XMS_ITS | Encounter Summary ---
Author Organization [employer] [facility] Address [address] [place] [address] 7t [place] [address] Care Team Providers Care Truck Driver Instructor Name Role Phone Unavailable Primary Care Provider Unavailabl e Reason for Visit * Reason Comments Med Refill Encounter Details Date Type Department Care Team (Late st Contact Info) Description 07/22/[address] [facility] ADULT DENTAL [address] [place], [place] [phone] Miguel Ángel Chong DMD [address] [place], [place] [phone] Encounter for dental examination Social History Tobacco [...] 9:30 AM EDT Office Visit [facility] ADULT DENTAL [address] [place] [address] Vinicio Quintero DDS [address] [place] [address] 01/17/2025 9:00 AM EDT Office Visit [facility] ADULT DENTAL [address] [place] [address] Melissa Abreu [address] [place] [address] documented as of this encounter Visit Diagnoses Diagnosis Encounter for dental examination documented in this encounter
--- OUTSIDE RECORDS SUMMARY | 2024-12-21 11:38 | XMS_ITS | Encounter Summary ---
Author Organization [employer] Address [address] [facility] 7t [place] [address] Care Team Providers Care Robotics Application Engineer Name Role Phone Unavailable Primary Care Provider Unavailabl e Reason for Visit * Reason Onset Date Comments Med Refill 03/11/2023 Encounter Details Date Type Department Care Team ([facility] st Contact Info) Description 03/11/2023 Telephone [facility] ADULT DENTAL [address] [place], [place] [phone] Alexus Haney, DDS [address] [place], [place] [phone] Med Refill Social History Tobacco Use Types [...] Description 12/28/2024 9:30 AM EDT Office Visit [facility] ADULT DENTAL [address] [place] [address] Vinicio Quintero DDS [address] [place], [place] [phone] 01/17/2025 9:00 AM EDT Office Visit [facility] ADULT DENTAL [address] [place], [place] [phone] Melissa Abreu [address] [place], [place] [phone] documented as of this encounter Visit Diagnoses Not on filedocumented in this encounter
--- OUTSIDE RECORDS SUMMARY | 2024-12-21 11:38 | XMS_ITS | Encounter Summary ---
Author Organization [employer] [facility] Address [address] [place] [address] 7t [place] [address] Care Team Providers Care Physiologist Name Role Phone Unavailable Primary Care Provider Unavailabl e Reason for Visit * Reason Comments Med Refill Encounter Details Date Type Department Care Team (Late st Contact Info) Description 10/21/2023 Refill [facility] ADULT DENTAL [address] [place], [place] [phone] Miguel Ángel Chong DMD [address] [place], [place] [phone] Encounter for dental examination Social History Tobacco [...] Description 12/28/2024 9:30 AM EDT Office Visit [facility] ADULT DENTAL [address] [place] [address] Vinicio Quintero DDS [address] [place] [address] 01/17/2025 9:00 AM EDT Office Visit [facility] ADULT DENTAL [address] [place] [address] Melissa Abreu [address] [place] [address] documented as of this encounter Visit Diagnoses Diagnosis Encounter for dental examination documented in this encounter
--- OUTSIDE RECORDS SUMMARY | 2024-12-21 11:38 | XMS_ITS | Clinical Summary ---
Author Organization [employer] [facility] Address [address] [facility] 7t [place] [address] Care Team Providers Care Account Administrator Name Role Phone Unavailable Primary Care Provider [...] adult 03/07/2017 Overview (07/12/2024): UNTREATED (August 2022) [facility] Home Polysomnogram: Date 02/27/2017; AHI 7, Unclassified apneas 1; Obstructive apneas 19; Central apneas 5; Mixed apneas 0; hypopneas 19; average oxygen saturation 96% (lowest 90% without saturations <88% for 5% or more of study). Treatment study ordered due to intolerance in the past. If insurance declines, will trial CPAP autoset instead. [facility] Polysomnogram treatment study. Date 03/22/2017. SE 87 % SM 91 %; spent 27 % of the study in REM. At the optimal pressure of 9; RDI 2 (AHI 2), Central apneas 2; Obstructive apneas 0; Mixed apneas 0; hypopneas 0; RERAs 0; and, average oxygen saturation was 92%. For the entire study, PLMs ~36. [facility] [place] Polysomnogram: Date 08/11/2019; Wt 200#; BMI 38; [...] Encounters Date Type Department Care Team Description 12/20/2024 Refill [facility] ADULT DENTAL [address] [place] [address] Pisano-ArceoAlexus braxton, DDS 11/14/2024 1:00 PM EDT Office Visit [facility] ADULT DENTAL [address] [place] [address] Pisano-ArceoAlexus braxton, DDS Extensive root caries lesions involving dentin (Primary Dx) 10/11/2024 8:00 AM EST Office Visit [facility] ADULT DENTAL [address] [place] [address] Pisano-ArceoAlexus, DDS Recurrent dental caries extending into dentin [...] Description 12/28/2024 9:30 AM EDT Office Visit [facility] ADULT DENTAL [address] [place] [address] Vinicio Quintero DDS [address] [place] [address] 01/17/2025 9:00 AM EDT Office Visit [facility] ADULT DENTAL [address] [place] [address] Brady, Melissa [address] [place] [address] Health Maintenance Due Date Last Done Comments CT Colonography 1968 Colonoscopy 1968 Colorectal Cancer Screening 1968 Depression Screening 1968 FIT DNA/Cologuard 1968 FIT 1968 FOBT 1968 HIV Screening 1968 Lipid Panel 1968 SDOH Screening 1968 Sigmoidoscopy 1968 Alcohol/Substance Use Screening 1980 Hepatitis C Screening 1986 Hepatitis B Vaccines (1 of 3 - 19+ 3-dose series) 1987 Pap Smear 1989 Cervical Cancer Screening 1998 HPV/Cotest 1998 Mammogram 2008 Pneumococcal Vaccine: 50+ Years (2 of 2 - PCV) 10/03/2016 10/03/2015 COVID-19 Vaccine ( season) 2024 07/09/2022, 10/28/2021, 11/13/2020, Additional history exists Influenza Vaccine (#1) 2024 , 07/10/2022, 05/24/2021, Additional history exists Dental X-Ray: Full Mouth 06/26/2024 06/25/2021 Dental Oral Exam 01/10/2025 07/12/2024, 10/07/2022 Dental Prophylaxis 01/16/2025 07/18/2024, 0 12/23/2023, 11/21/2022 Diabetes: Hemoglobin A1C 11/11/2025 11/11/2024 Tobacco Screening 11/14/2025 11/14/2024 Dental X-Ray: Bitewings [...] Most Recently Relevant to Health Maintenance Insurance [facility] MEDICAID STAND ADULT * Guarantor: Codie Fernández Account Type Relation to Patient Date of Phone Billing Address Personal/Family Self [facility] [place] [address]
--- OUTSIDE RECORDS SUMMARY | 2024-12-21 11:38 | XMS_ITS | Clinical Summary ---
Author Organization [facility] Location Address [address] [place] [address] Phone Care Team Providers Care Stem Roller Name Role Phone Gt Prescott MD Primary Care Provider [phone] Allergies Active Allergy Reactions Criticality Noted Date [...] 1 (one) time each day. 023 Active hydrOXYzine HCL (ATARAX) 25 mg tablet [...] time each day. x2 weeks. 024 Active montelukast (SINGULAIR) 10 mg tabletIndicatio ns:Severe persistent asthma, unspecified whether complicated ([facility] V28) TAKE 1 TABLET BY MOUTH AT BEDTIME FOR 360 DAYS. 90 tablet 3 024 Active Vitamin D3 25 mcg (1,000 unit) capsule TAKE 1 CAPSULE BY MOUTH EVERY DAY 90 capsule 1 025 Active calcium citrate (CALCITRATE) 950 mg (200 mg elemental calcium) tabletIndicatio ns:Obstructive sleep apnea (adult) (pediatric),Sev ere persistent asthma with (acute) exacerbation (CMS/[facility] V28) TAKE 1 TABLET BY MOUTH EVERY [...] EVERY DAY 90 tablet 1 025 Active blood sugar diagnostic (FreeStyle Lite Strips) test strip USE TO CHECK BLOOD SUGAR ONCE DAILY 200 strip 1 025 Active ibuprofen (ADVIL,MOTRIN) 800 mg tablet Take 1 tablet (800 mg total) by mouth every 8 (eight) hours if needed for mild pain. For 30 days 90 tablet 1 025 Active blood sugar diagnostic (FreeStyle Lite Strips) test strip 1 Lancet by extracorporeal route 2 (two) times a day. 024 2024 Discontinued ibuprofen (ADVIL,MOTRIN) 800 mg tablet Take 1 tablet (800 mg total) by mouth every 8 (eight) hours if needed for mild pain. For 30 days 023 2024 Discontinued(R eorder) Active Problems Problem Noted Date Diagnosed Date [...] foot 05/31/2019 Overview (05/26/2024): Surgery by Dr. Anderson, 05/20/2019 Obesity (BMI 30-39.9) 03/03/2019 Overview (05/26/2024): Mar 2017: Sleeve gastrectomy s/p LAPBAND removal Subclinical hypothyroidism 12/13/2018 Pulmonary nodules 05/05/2018 Seasonal allergies 04/28/2018 Severe persistent asthma (CMS/[facility] V28) 8 Spinal stenosis of lumbar region 11/02/2017 Obstructive sleep apnea of adult 03/07/2017 Overview (05/26/2024): UNTREATED (August 2022) [facility] Polysomnogram: Date 02/27/2017; AHI 7, Unclassified apneas 1; Obstructive apneas 19; Central apneas 5; Mixed apneas 0; hypopneas 19; average oxygen saturation 96% (lowest 90% without saturations <88% for 5% or more of study). Treatment study ordered due to intolerance in the past. If insurance declines, will trial CPAP autoset instead. [facility] Polysomnogram treatment study. Date 03/22/2017. SE 87 % SM 91 %; spent 27 % of the study in REM. At the optimal pressure of 9; RDI 2 (AHI 2), Central apneas 2; Obstructive apneas 0; Mixed apneas 0; hypopneas 0; RERAs 0; and, average oxygen saturation was 92%. For the entire study, PLMs ~36. [facility] Polysomnogram: Date 08/11/2019; Wt 200#; BMI 38; [...] mostly hypopneas; without sleep related hypoventilation by 2019 polysomnogram. Low back pain without sciatica 03/05/2016 Overview (05/26/2024): Follows with pain management. She is status post cortisone injection with relief. Diverticulosis 10/30/2014 GERD (gastroesophageal reflux disease) 0 Encounters Date Type Department Care Team Description 11/30/2024 9:00 AM EDT Office Visit Orthopedic Surgery - [place] [address] [facility] [address] [place] [address] Manny Leos MD S/P shoulder replacement, left (Primary Dx) 10/27/2024 8:30 AM EST Office Visit Bariatric Surgery - [place] [address] [place] [address] Mitch Mckinney MD Class 1 obesity due to excess calories with body mass index (BMI) of 30.0 to 30.9 in adult, unspecified whether serious comorbidity present (Primary Dx) 10/18/2024 Telephone Adult Medicine [address] [place] [address] Gt Prescott MD Phyiscian Order (Safety Net Solution ) 09/27/2024 10:30 AM EST Treatment [facility] [address] [place] [address] Rosa Sánchez, OT Status post shoulder replacement, left (Primary Dx) from Last 3 Months Immunizations Name Administration Dates Next Due Moderna SARS-CoV-2 COVID-19, mRNA, LNP-S, preservative free 10/28/2021 Surgical History Surgery Date Site/Laterality Comments ANKLE SURGERY 2010 PROCEDURE: HISTORICAL ANKLE SURGERY; COMMENT: LEFT ANKLE, DR. ANDERSON LAPAROSCOPIC GASTRIC BANDING 2009 PROCEDURE: LAP ADJUSTABLE [...] hiatal hernia OTHER SURGICAL HISTORY 2003 PROCEDURE: SC TOTAL ABDOMINAL HYSTERECT W/WO RMVL TUBE OVARY; [...] 03/07/2017 DX:Obstructive sleep apnea of adult; COMMENT: [facility] Home Polysomnogram: Date 02/27/2017; AHI 7, Unclassified [...] obesity with BMI of 4 0.0-44.9, adult ([facility] V24, [facility] V28) 11/03/2014 DX:Morbid obesity wit h BMI of 40.0-44.9, adult ([facility]) Severe persistent asthma ([facility] V28) 03/08/2018 DX:Severe persistent asthma Allergic conjunctivitis of both eyes 04/28/2018 DX:Allergic conjunctivitis of both eyes Chronic rhinitis 04/28/2018 DX:Chronic rhin itis Total knee replacement status, right 02/01/2020 DX:Total knee replacement status, right; COMMENT: 02/10 COPD (chronic obstructive pu lmonary disease) ([facility] V24, [facility] V28) DX:COPD (chronic o bstructive pulmonary disease) ([facility]) Pulmonary embolism ([facility] V24, [facility] V28) 07/15/2022 DX:Pulmonary embolism ([facility]) Family History Medical History Relation Name Comments [...] 8:30 AM EDT Office Visit Adult Medicine [address] [phone] Donte Patterson PA [address] [place] [address] 02/28/2025 8:00 AM EDT Office Visit Bariatric Surgery [facility] [address] [phone] Mitch Mckinney MD [address] [address] 06/02/2025 9:00 AM EDT Office Visit Orthopedic Surgery [facility] [address] [phone] Leena Obrien PA [address] [address] Health Maintenance Due Date Last Done Comments [...] * Hemoglobin A1c (11/11/2024 1:49 PM EDT) [facility] Hemoglobin A1C 5.7 <6.5 % LAB CHEMISTRY METHOD 11/11/2024 10:08 PM EDT [facility] Mean Bld Glu Estim. 117 mg/dL LAB CHEMISTRY METHOD 11/11/2024 10:08 PM EDT [facility] Blood Venous blood specimen / Unknown Venipuncture / Unknown 11/11/2024 1:49 PM EDT 11/11/2024 1:49 PM EDT Mitch Mckinney MD LAB BLOOD ORDERABLES Final R esult [facility] [address] [place] [address], [place] [phone] * External CT Report (09/27/2024) Only the most recent of2 resultswithin the time period is included. Anatomical Region Laterality Modality Computed Tomogra phy Provider Onbase IMG CT PROCEDURES Final Resul t * Depression Screening (04/26/2024) [facility] Depression Screening abstracted Historical Provider HEALTH MAINTENANCE Final Result * Lipid panel (01/01/2024) [facility] LDL/HDL Ratio 2 0 - 4 Triglycerides 55 0 - 150 mg/dL Cholesterol 194 0 - 200 mg/dL HDL 90 >=40 mg/dL LDL Cholesterol 93 0 - 100 mg/dL Blood Venous blood specimen / Unknown Historical Provider LAB BLOOD ORDERABLES June l Result * Hepatitis C Screening (05/24/2021) [facility] HM Hepatitis C Screening abstracted [facility] Provider [facility] Final Result * Cervical Cancer Screening: HPV (12/24/2020) Pathologist [facility] Cervical Cancer Screening: HPV negative, abstracted [facility] Provider [facility] Final Result * Colonoscopy (07/28/2019) Pathologist [facility] Colonoscopy no interpretation , abstracted Anatomical Region Laterality Modality Other [facility] Final Result * SCR MAMMO BI INCL [...] Most Recently Relevant to Health Maintenance Insurance [facility] Advance Directives Documents on File Type Date Recorded Patient Director Child Expl anation Health Care Decision (hx) 12/19/2014 [...] (hx) 12/15/2014 AD LEE DIRECTIVE Care Teams Stem Roller Relationship Specialty Start Date End Date Gt Prescott MD [address] [place] [id number] PCP - General Internal Medicine 02/21/20
--- OUTSIDE RECORDS SUMMARY | 2024-12-21 11:38 | XMS_ITS | Encounter Summary ---
Author Organization [employer] Address [address] [facility] 7t [place] [address] Care Team Providers Care Corporate Attorney Name Role Phone Unavailable Primary Care Provider Unavailabl e Reason for Visit * Reason Onset Date Comments crown fell off 04/06/2023 Encounter Details Date Type Department Care Team (Late st Contact Info) Description 04/06/[address] [facility] ADULT DENTAL [address] [place], [place] [phone] Alexus Haney DDS [address] [place], [place] [phone] crown fell off Social History Tobacco Use [...] 12/28/2024 9:30 AM EDT Office Visit [facility] ADULT DENTAL [address] [place] [address] Vinicio Quintero DDS [address] [place] [address] 01/17/2025 9:00 AM EDT Office Visit [facility] ADULT DENTAL [address] [place] [address] Melissa Abreu [address] [place] [address] documented as of this encounter Visit Diagnoses Not on filedocumented in this encounter
--- OUTSIDE RECORDS SUMMARY | 2024-12-21 11:38 | XMS_ITS | Encounter Summary ---
Author Organization [employer] [facility] Address [address] [place] [address] 7t [place] [address] Care Team Providers Care Quality Assurance Supervisor Name Role Phone Unavailable Primary Care Provider Unavailabl e Reason for Visit * Reason Comments Med Refill Encounter Details Date Type Department Care Team (Late st Contact Info) Description 12/24/2023 Refill [facility] ADULT DENTAL [address] [place], [place] [phone] Miguel Ángel Chong DMD [address] [place], [place] [phone] Encounter for dental examination Social History Tobacco [...] 9:30 AM EDT Office Visit [facility] ADULT DENTAL [address] [place], [place] [phone] Vinicio Quintero DDS [address] [place], [place] [phone] 01/17/2025 9:00 AM EDT Office Visit [facility] ADULT DENTAL [address] [place] [address] Melissa Abreu [address] [place] [address] documented as of this encounter Visit Diagnoses Diagnosis Encounter for dental examination documented in this encounter
--- OUTSIDE RECORDS SUMMARY | 2024-12-21 11:38 | XMS_ITS | Encounter Summary ---
Author Organization [employer] [facility] Address 75 [facility] 7 [place] [address] Care Team Providers Care Real Estate Subagent Name Role Phone Unavailable Primary Care Provider Unavailabl e Encounter Details Date Type Department Care Team (Late st Contact Info) Description 12/23/2023 Orders Only [facility] ADULT DENTAL [address] [place] [address] Alexus Haney DDS [address] [place], [place] [phone] Social History Tobacco Use Types Packs/Day Years [...] Description 12/28/2024 9:30 AM EDT Office Visit [facility] ADULT DENTAL [address] [place] [address] Vinicio Quintero, DDS [address] [place] [address] 01/17/2025 9:00 AM EDT Office Visit [facility] ADULT DENTAL 230 [place] [address] Melissa Abreu [address] [place] [address] documented as of this encounter Visit Diagnoses Not on filedocumented in this encounter
--- OUTSIDE RECORDS SUMMARY | 2024-12-21 11:38 | XMS_ITS | Encounter Summary ---
Author Organization [employer] [facility] Address [address] [place] [address] 7t [place] [address] Care Team Providers Care Finish Mill Operator Name Role Phone Unavailable Primary Care Provider Unavailabl e Reason for Visit * Reason Comments Med Refill Encounter Details Date Type Department Care Team (Late st Contact Info) Description 08/23/2023 Refill [facility] ADULT DENTAL [address] [place], [place] [phone] Miguel Ángel Chong DMD [address] [place], [place] [phone] Encounter for dental examination Social History Tobacco [...] Telephone Encounter - Alexus Haney DDS - 08/25/2023 3:29 PM EST Approving, but needs appt for additional refills. documented in this encounter Plan of Treatment Upcoming Encounters Date Type Department Care Team (Late st Contact Info) Description 12/28/2024 9:30 AM EDT Office Visit [facility] ADULT DENTAL [address] [place], [place] [phone] Vinicio Quintero DDS [address] [place] [address] 01/17/2025 9:00 AM EDT Office Visit [facility] ADULT DENTAL [address] [place] [address] Melissa Abreu [address] [place] [address] documented as of this encounter Visit Diagnoses Diagnosis Encounter for dental examination documented in this encounter
--- OUTSIDE RECORDS SUMMARY | 2024-12-21 11:38 | XMS_ITS | Clinical Summary ---
Author Organization [employer] [facility] Address [address] [place] [address] Care Team Providers Care Grooving Lathe Tender Name Role Phone Gt Prescott MD Primary Care Provider [phone] Allergies Active Allergy Reactions Criticality Noted Date [...] 210 MG/1.91ML SOSY 0 05/12/2023 Active Tiotropium [place] Monohydrate (Spiriva Respimat) 1.25 MCG/ACT AERS Inhale [...] age to complete this topic Care Teams Grooving Lathe Tender Relationship Specialty Start Date End Date Gt Prescott MD PCP - General Internal Medicine 05/28/23
--- OUTSIDE RECORDS SUMMARY | 2024-12-21 11:38 | XMS_ITS | Encounter Summary ---
Author Organization [employer] [facility] Address 75 [facility] 7 [place] [address] Care Team Providers Care Ride Assembly Supervisor Name Role Phone Unavailable Primary Care Provider Unavailabl e Encounter Details Date Type Department Care Team (Late st Contact Info) Description 04/28/2023 Abstract [facility] ADULT DENTAL [address] [place] [address] Alexus Haney DDS [address] [place], [place] [phone] Social History Tobacco Use Types Packs/Day Years [...] AM EDT Office Visit [facility] ADULT DENTAL [address] [place] [address] Vinicio Quintero, DDS [address] [place] [address] 01/17/2025 9:00 AM EDT Office Visit [facility] ADULT DENTAL [address] [place] [address] Melissa Abreu [address] [place] [address] documented as of this encounter Visit Diagnoses Not on filedocumented in this encounter
--- OUTSIDE RECORDS SUMMARY | 2024-12-21 11:38 | XMS_ITS | Encounter Summary ---
Author Organization [employer] [facility] Address [address] [place] [address] 7t [place] [address] Care Team Providers Care Food Processor Name Role Phone Unavailable Primary Care Provider Unavailabl e Reason for Visit * Reason Comments Med Change Request Encounter Details Date Type Department Care Team (Late st Contact Info) Description 07/26/2024 Refill [facility] ADULT DENTAL 230 [place], [place] [phone] Miguel Ángel Chong DMD [address] [place], [place] [phone] Encounter for dental examination Social History Tobacco [...] Description 12/28/2024 9:30 AM EDT Office Visit [facility] ADULT DENTAL [address] [place] [address] Vinicio Quintero DDS [address] [place] [address] 01/17/2025 9:00 AM EDT Office Visit [facility] ADULT DENTAL [address] [place] [address] Melissa Abreu [address] [place] [address] documented as of this encounter Visit Diagnoses Diagnosis Encounter for dental examination documented in this encounter
--- OUTSIDE RECORDS SUMMARY | 2024-12-21 11:38 | XMS_ITS | Encounter Summary ---
Author Organization [employer] [facility] Address 75 [facility] 7t [place] [address] Care Team Providers Care Garland Machine Operator Name Role Phone Unavailable Primary Care Provider Unavailabl e Reason for Visit * Reason Comments Med Refill Encounter Details Date Type Department Care Team (Late st Contact Info) Description 09/24/2023 Refill [facility] ADULT DENTAL [address] [place] [address] Alexus Haney DDS [address] [place] [address] Encounter for dental examination Social History Tobacco [...] Office Visit [facility] ADULT DENTAL [address] [place] [address] Vinicio Quintero DDS [address] [place] [address] 01/17/2025 9:00 AM EDT Office Visit [facility] ADULT DENTAL [address] [place] [address] Melissa Abreu [address] [place] [address] documented as of this encounter Visit Diagnoses Diagnosis Encounter for dental examination documented in this encounter
--- OUTSIDE RECORDS SUMMARY | 2024-12-21 11:38 | XMS_ITS | Encounter Summary ---
Author Organization [employer] [facility] Address [address] [facility] 7t [place] [address] Care Team Providers Care Contracts Advisor Name Role Phone Unavailable Primary Care Provider Unavailabl e Reason for Visit * Reason Comments Med Refill Encounter Details Date Type Department Care Team (Late st Contact Info) Description 06/24/2023 Refill [facility] ADULT DENTAL [address] [place] [address] Alexus Haney DDS [address] [place] [address] Encounter for dental examination Social History Tobacco [...] Visit [facility] ADULT DENTAL [address] [place] [address] Vinicio Quintero DDS [address] [place] [address] 01/17/2025 9:00 AM EDT Office Visit [facility] ADULT DENTAL [address] [place] [address] Melissa Abreu [address] [place] [address] documented as of this encounter Visit Diagnoses Diagnosis Encounter for dental examination documented in this encounter
--- OUTSIDE RECORDS SUMMARY | 2024-12-21 11:38 | XMS_ITS | Encounter Summary ---
Author Organization [employer] [facility] Address [address] [place] [address] 7t [place] [address] Care Team Providers Care Blade Sharpener Name Role Phone Unavailable Primary Care Provider Unavailabl e Reason for Visit * Reason Comments Med Refill Encounter Details Date Type Department Care Team (Late st Contact Info) Description 06/06/2024 Refill [facility] ADULT DENTAL [address] [place], [place] [phone] Miguel Ángel Chong DMD [address] [place], [place] [phone] Encounter for dental examination Social History Tobacco [...] Office Visit [facility] ADULT DENTAL [address] [place], [place] [phone] Vinicio Quintero DDS [address] [place], [place] [phone] 01/17/2025 9:00 AM EDT Office Visit [facility] ADULT DENTAL [address] [place] [address] Melissa Abreu [address] [place] [address] documented as of this encounter Visit Diagnoses Diagnosis Encounter for dental examination documented in this encounter
--- OUTSIDE RECORDS SUMMARY | 2024-12-21 11:38 | XMS_ITS | Encounter Summary ---
Author Organization [employer] [facility] Address [address] [facility] 7 [place] [address] Care Team Providers Care Crime Lab Technician Name Role Phone Unavailable Primary Care Provider Unavailabl e Encounter Details Date Type Department Care Team (Late st Contact Info) Description 04/28/2023 Abstract [facility] ADULT DENTAL [address] [place] [address] Alexus Haney DDS [address] [place], [place] [phone] Social History Tobacco Use Types Packs/Day Years [...] Description 12/28/2024 9:30 AM EDT Office Visit [facility] ADULT DENTAL [address] [place] [address] Vinicio Quintero, DDS [address] [place] [address] 01/17/2025 9:00 AM EDT Office Visit [facility] ADULT DENTAL [address] [place] [address] Melissa Abreu [address] [place] [address] documented as of this encounter Visit Diagnoses Not on filedocumented in this encounter
--- OUTSIDE RECORDS SUMMARY | 2024-12-21 11:38 | XMS_ITS | Encounter Summary ---
Author Organization [employer] Address 75 [facility] 7t [place] [address] Care Team Providers Care Catastrophe Claims Supervisor Name Role Phone Unavailable Primary Care Provider Unavailabl e Reason for Visit * Reason Onset Date Comments appt 01/19/2024 Encounter Details Date Type Department Care Team (Late st Contact Info) Description 01/19/2024 Telephone [facility] ADULT DENTAL [address] [place], [place] [phone] Alexus Haney, DDS [address] [place], [place] [phone] appt Social History Tobacco Use Types Packs/Day [...] [facility] ADULT DENTAL 230 [place] [address] Vinicio Quintero DDS [address] [place] [address] 01/17/2025 9:00 AM EDT Office Visit [facility] ADULT DENTAL [address] [place], [place] [phone] Melissa Abreu [address] [place] [address] documented as of this encounter Visit Diagnoses Not on filedocumented in this encounter
== END 2024-12-21 11:36 | disposition home or self-care (01) ==
PROVIDERS: Emergency Provider Emergency Medicine; PCP Internal Medicine
DX: R09.1 Pleurisy (principal); J45.901 Unspecified asthma with (acute) exacerbation; J44.9 Chronic obstructive pulmonary disease, unspecified; Z03.818 Encounter for observation for suspected exposure to other biological agents ruled out
CPT/HCPCS: 0241U; 71046; 81001; 94640; 96372; 99283; 99284; J2919

== ENCOUNTER → 2024-12-21 09:16 | Outpatient (BNV) | payer OTHER, SELFPAY | PROVIDERS: PCP Internal Medicine; Visit Provider Radiology Diagnostic Radiology | DX: M47.815 Spondylosis without myelopathy or radiculopathy, thoracolumbar region (principal); M41.35 Thoracogenic scoliosis, thoracolumbar region | CPT/HCPCS: 71046 ==

== ENCOUNTER 2025-01-15 15:07 | Emergency (ER) | payer OTHER, SELFPAY ==
--- NOTE | ~2025-01-15 | CT_ITS ---
CLINICAL HISTORY: fall, ?Head strike, headache CT head without contrast Comparison: None Findings: No acute hemorrhage. No extra-axial fluid collection. No hydrocephalus, mass-effect or herniation. Hair-white differentiation is maintained. White matter is within normal limits for age. No acute orbital pathology. No acute soft tissue abnormality. No fracture. The visualized paranasal sinuses are predominantly clear. The mastoid air cells are clear. Impression: No acute findings. This document has been electronically signed by: Tata Duran MD on 01/15/2025 16:54:58
--- NOTE | ~2025-01-15 | XR_ITS ---
CLINICAL HISTORY: fall, pain Radiographs of the pelvis and right hip, 3 views Comparison: None Findings: No fracture or dislocation. Adjc-nu-lpozjizb degenerative change of the hips. Mild degenerative change of the pubic symphysis and sacroiliac joints. Moderate to severe lower lumbar degenerative change. Vascular calcifications. No radiographically apparent soft tissue swelling. Impression: No acute findings. This document has been electronically signed by: Tata Duran MD on 01/15/2025 16:57:59
--- NOTE | 2025-01-15 15:49 | ED.FALL ---
HPI - Fall General Chief Complaint: Fall Stated Complaint: fell yesterday Time Seen by Provider: 01/15/25 18:17 Source: patient Mode of arrival: ambulatory Limitations: no limitations History of Present Illness ED Provider: lorene thao HPI Narrative: Patient is a 54-year-old female who presents emergency department for evaluation. She reports a mechanical trip and fall yesterday where she fell down onto her knees and hands and subsequently onto her right side. She is not certain whether there was any head strike but she denies any loss of consciousness or use of anticoagulants. She is complaining of a mild headache, no neck pain/ stiffness, dizziness, vision changes. Reports diffuse pain with the right side of her body primarily worse at the right lower back as well as the right hip. Related Data Home Medications ?Medication ?Instructions ?Recorded ?Confirmed azelastine 137 mcg (0.1 %) nasal 2 spray intranasal BID 12/26/21 12/06/24 spray calcium citrate 1 tab PO DAILY 12/26/21 12/06/24 cholecalciferol (vitamin D3) 25 1 tab PO DAILY 12/26/21 12/06/24 mcg (1,000 unit) tablet fluticasone propionate 230 1 puff inhalation BID 12/26/21 12/06/24 mcg-salmeterol 21 mcg/actuation HFA inhaler (Advair HFA) hydroxyzine HCl 25 mg tablet 1 tab PO Q8H PRN itch 12/26/21 12/06/24 ketotifen fumarate 0.025 % (0.035 1 drp ophthalmic (eye) BID PRN itch 12/26/21 12/06/24 %) eye drops loratadine 10 mg tablet 1 tab PO DAILY 12/26/21 12/06/24 montelukast 10 mg tablet 1 tab PO BEDTIME 12/26/21 12/06/24 omeprazole 40 mg capsule,delayed 1 cap PO DAILY@0630 12/26/21 12/06/24 release tiotropium bromide 1.25 2 puff PO DAILY 12/26/21 12/06/24 mcg/actuation mist for inhalation (Spiriva Respimat) folic acid 1 mg tablet 1 mg PO DAILY 07/24/22 12/06/24 tezepelumab-ekko 210 mg/1.91 mL mg subcut 10/15/22 12/06/24 (110 mg/mL) subcutaneous syringe (Tezspire) ibuprofen 800 mg tablet 800 mg PO TID PRN 05/06/23 12/06/24 bupropion HCl 300 mg 24 hr tablet, 300 mg PO DAILY 12/22/23 12/06/24 extended release naltrexone 50 mg tablet 50 mg PO DAILY 12/22/23 12/06/24 Previous Rx's ?Medication ?Instructions ?Recorded guaifenesin 1,200 mg tablet, 1,200 mg PO BID #10 tabs 06/03/23 extended release 12 hr (Mucus Relief ER) benzonatate 100 mg capsule 100 mg PO BID PRN cough #14 caps 03/15/24 albuterol sulfate 90 mcg/actuation 2 inh inhalation Q6H PRN shortness 04/12/24 breath activated powder inhaler of breath or wheezing #1 ea guaifenesin 200 mg/5 mL oral liquid 200 mg (5 mL) PO Q4H PRN cough 04/12/24 #118 mL ipratropium 20 mcg-albuterol 100 1 puff inhalation QID COPD 30 days 11/14/24 mcg/actuation mist for inhalation #4 grams (Combivent Respimat) ipratropium bromide 0.02 % 2.5 ml inhalation QID PRN for 12/20/24 solution for inhalation wheezing #125 mL azithromycin 250 mg tablet See Rx Instructions PO .COMPLEX #6 12/21/24 tabs prednisone 20 mg tablet See Rx Instructions .Route 12/21/24 .COMPLEX 12 days #26 tabs Allergies Allergy/AdvReac Type Severity Reaction Status Date / Time latex [Latex] Allergy Mild UNKNOWN Verified 01/15/25 15:52 cats, pollen, mold Allergy Unknown Unknown Uncoded 12/21/24 09:13 Latex Allergy Unknown Unknown Uncoded 12/21/24 09:13 Review of Systems Review of Systems: Yes all other systems are reviewed and are negative PMFSH Past Medical History Attestation statement: The following information was validated with the patient. Source: old records reviewed Medical History Allergic alveolitis Bronchitis SPARKLE (obstructive sleep apnea) Allergic rhinitis Asthma Pulmonary embolism Pulmonary cavitary lesion COPD (chronic obstructive pulmonary disease) Pulmonary cavitary lesion Asthma Surgical History H/O gastric sleeve History of partial hysterectomy History of surgery on wrist History of ankle surgery History of knee replacement Family History Family History Father Prostate cancer Social History Social History Household Members: Spouse and Family Housing: House Are you a primary hospice care transitions coordinator to a significant other at home: Yes (mother) Do you presently have visiting nurse or other home services: Yes Unable to assess alcohol history related to: Unknown Alcohol intake: never Patient Tobacco Use Status: Never used Tobacco Advance Directives Date on File: 12/26/21 service: No Current occupational status: disabled Physical Exam Vital Signs: Vital Signs: Last Vital Signs Temp 96.6 F L 01/15/25 15:50 Pulse 77 01/15/25 15:50 Resp 18 01/15/25 15:50 BP 147/71 H 01/15/25 15:50 Pulse Ox 100 01/15/25 15:50 O2 Del Method Room Air 01/15/25 15:50 Oxygen Flow Rate 0 01/15/25 15:50 BMI result Body Mass Index 32.3 Appearance: Alert.?Oriented to person, place and time. No acute distress.?Normal affect. Head: Normocephalic Eyes: Pupils equal, round and reactive to light. EOMI. Conjunctiva and sclera normal? No Stroud sign noted. No raccoon eyes noted ENT: No septal hematoma, nares patent bilaterally. External auditory canal normal tympanic membrane pearly hair and intact bilaterally. Dentition normal, no fractured teeth. No lesions or lacerations of oropharynx. Uvula midline. Moist mucous membranes. Neck: Normal inspection.? Neck supple.??No palpable tenderness, step-off, deformities. CVS: Heart sounds normal. Normal heart rate and rhythm.? Pulses normal.?? Respiratory: No respiratory distress.? Lung sounds clear to auscultation bilaterally?? Abdomen: Soft and non-tender. Normoactive bowel sounds. ?? Back: No palpable midline tenderness step-offs or deformities of the thoracic or lumbar spine Skin: Skin warm and dry.? Normal skin color.? ?? Extremities: No lower extremity edema.? Full range of motion to right hip, mild decreased AROM with flexion >90 degrees due to pain. 2+ DP/PT pulse. Full range of motion to bilateral upper extremities and left lower extremity. Neuro: Moves all extremities spontaneously. Sensation intact bilaterally. CN II-XII intact. No focal neuro deficits. Ambulatory with slow steady gait Medical Decision Making Medical Decision Making MDM Narrative: Patient is a 54-year-old female who presents emergency department for evaluation after mechanical trip and fall as per HPI, with resultant headache and possible head strike in addition to right side pain primarily the right hip/buttock. On evaluation has no focal neurological deficits. No use of anticoagulants or known coagulation disorders. Based on physical examination, lower suspicion for ICH, SDH, skull fracture, her CT imaging was obtained is without acute intracranial pathology. All extremities are neurovascularly intact distally range of motion side from old decreased AROM to the right hip. XR was obtained subacute fracture or dislocation. At this time, she is stable for discharge, conservative treatment, outpatient follow-up with primary care provider. All questions answered. Differential Diagnosis Differential Diagnoses: The differential diagnosis associated with the presentation includes (See narrative above) Admission/Observation Consideration of admission/observation: Escalation of care including admission/observation considered (See narrative above) Independent Interpretation I performed an independent interpretation of an: Plain X-Ray (See narrative above) Radiology Impression Discussion of test interpretation with radiology: I have reviewed the radiologist's reading. Radiologist Impression: CT head without contrast Comparison: None Findings: No acute hemorrhage. No extra-axial fluid collection. No hydrocephalus, mass-effect or herniation. Hair-white differentiation is maintained. White matter is within normal limits for age. No acute orbital pathology. No acute soft tissue abnormality. No fracture. The visualized paranasal sinuses are predominantly clear. The mastoid air cells are clear. Impression: No acute findings Radiographs of the pelvis and right hip, 3 views Comparison: None Findings: No fracture or dislocation. Uavt-nz-oysohysl degenerative change of the hips. Mild degenerative change of the pubic symphysis and sacroiliac joints. Moderate to severe lower lumbar degenerative change. Vascular calcifications. No radiographically apparent soft tissue swelling. Impression: No acute findings. Independent Historian Clinical information obtained from an independent historian. History obtained from or confirmed by: Other (Daughter) External Record Review External record reviewed: Outpatient record Prescription Management I considered prescription management with: Pain Medication Chronic Conditions Patient?s care impacted by: Other (see PMFSH section) Discharge Plan Discharge Clinical Impression: Contusion of hip, right, Fall Patient Disposition: Home, Self-Care Instructions: P.R.I.C.E. Treatment (ED), Hip Contusion (ED) Additional Instructions: As discussed, CT of the head did not show any evidence of injury such as fracture or bleeding which is very reassuring. X-ray of the right hip and pelvis does not show evidence of fracture dislocation. Be sure to rest over the next few days, avoid excessive activity. Apply ice to areas of pain for 10-15 minutes 4-6 times daily. You can take ibuprofen 200 mg, 3 tablets (600mg) every 6-8 hours as needed for pain, in addition to Tylenol 500 mg, 2 tablets (1,000mg) every 4-6 hours as needed for pain, but not to exceed 3 doses daily (3,000mg).? Elevate your legs above the level of your chest. Contact your primary care provider to arrange for a follow-up visit. Return with any new or worsening symptoms or concerns Prescriptions: No Action Combivent Respimat 20-100 mcg/actuation mist 1 puff inhalation QID 30 Days Qty: 4 4RF ipratropium bromide 0.02 % solution 2.5 ml inhalation QID PRN (Reason: for wheezing) Qty: 125 3RF ketotifen fumarate 0.025 % (0.035 %) drops 1 drp ophthalmic (eye) BID PRN (Reason: itch) omeprazole 40 mg capsule,delayed release(DR/EC) 1 cap PO DAILY@0630 montelukast 10 mg tablet 1 tab PO BEDTIME hydroxyzine HCl 25 mg tablet 1 tab PO Q8H PRN (Reason: itch) azelastine 137 mcg (0.1 %) aerosol,spray 2 spray intranasal BID loratadine 10 mg tablet 1 tab PO DAILY calcium citrate 200 mg (950 mg) tablet 1 tab PO DAILY Advair HFA 230-21 mcg/actuation HFA aerosol inhaler 1 puff inhalation BID cholecalciferol (vitamin D3) 25 mcg (1,000 unit) tablet 1 tab PO DAILY Spiriva Respimat 1.25 mcg/actuation mist 2 puff PO DAILY guaifenesin [Mucus Relief ER] 1,200 mg tablet extended release 12hr 1,200 mg PO BID Qty: 10 0RF benzonatate 100 mg capsule 100 mg PO BID PRN (Reason: cough) Qty: 14 0RF albuterol sulfate 90 mcg/actuation aerosol powdr breath activated 2 inh inhalation Q6H PRN (Reason: shortness of breath or wheezing) Qty: 1 0RF guaifenesin 200 mg/5 mL liquid 200 mg PO Q4H PRN (Reason: cough) Qty: 118 0RF azithromycin 250 mg tablet See Rx Instructions .ROUTE .COMPLEX Qty: 6 0RF Rx Instructions: For 250 mg dose pack: take 500 mg today (day 1), then 250 mg for 4 days (days 2-5) prednisone 20 mg tablet See Rx Instructions .ROUTE .COMPLEX 12 Days Qty: 26 0RF Rx Instructions: 20 mg orally, Take 3 tablets for 5 days THEN; Take 2 tablets for 4 days THEN; Take 1 tablet for 3 days Tezspire 210 mg/1.91 mL (110 mg/mL) syringe subcut folic acid 1 mg tablet 1 mg PO DAILY ibuprofen 800 mg tablet 800 mg PO TID PRN bupropion HCl 300 mg tablet extended release 24 hr 300 mg PO DAILY naltrexone 50 mg tablet 50 mg PO DAILY Referrals: Gt Prescott III, MD [Primary Care Provider] - Print Language: Maori
[2025-01-15 15:50] VITALS: BP 147/71; PULSE 77; RESP 18; TEMP 35.9; O2SAT 100; BMI 32.3
[2025-01-15 18:51] VITALS: BP 147/71; PULSE 77; RESP 18; TEMP 35.9; O2SAT 100
== END 2025-01-15 18:52 | disposition home or self-care (01) ==
PROVIDERS: Emergency Provider Emergency Medicine; PCP Internal Medicine
DX: S70.01XA Contusion of right hip, initial encounter (principal); M25.551 Pain in right hip; R51.9 Headache, unspecified; X58.XXXA Exposure to other specified factors, initial encounter; W19.XXXA Unspecified fall, initial encounter; Y93.9 Activity, unspecified; Y92.9 Unspecified place or not applicable; Y99.8 Other external cause status; R10.2 Pelvic and perineal pain
CPT/HCPCS: 70450; 73502; 99282; 99284

== ENCOUNTER → 2025-01-15 15:54 | Outpatient (BNV) | payer OTHER, SELFPAY | PROVIDERS: PCP Internal Medicine; Visit Provider Radiology Diagnostic Radiology | DX: R51.9 Headache, unspecified (principal); M25.551 Pain in right hip; W19.XXXA Unspecified fall, initial encounter | CPT/HCPCS: 70450; 73502 ==

== ENCOUNTER 2025-02-13 20:32 | Emergency (ER) | payer OTHER, SELFPAY ==
--- NOTE | ~2025-02-13 | CT_ITS ---
CLINICAL HISTORY: dimer CT angiography chest with contrast. MIP Postprocessing. Comparison: CT/SR - CT CHEST WO IV CON - 09/27/24 07:[address]/OK/SR - CT ANGIO CHEST PE PROTOCOL - 04/12/24 13:45 EDT Findings: Images degraded by respiratory motion. This precludes optimal evaluation of the pulmonary arteries. Given that limitation, no filling defects identified within the main, lobar, and large or segmental pulmonary arteries to suggest pulmonary embolism. The smaller segmental and subsegmental pulmonary arteries are not adequately assessed. Thoracic aorta is nonaneurysmal. Overall heart size within normal limits. No enlarged lymph nodes. Air-filled distention of the distal esophagus with small hiatal hernia. Scattered areas of ground-glass opacity within the lungs are similar to that seen on the patient's prior study. No pleural effusion or pneumothorax. Postsurgical change of the stomach. Fatty infiltration of the pancreas. No free fluid or free air within the upper abdomen. Multilevel degenerative disc disease and degenerative facet disease throughout the thoracolumbar spine. IMPRESSION: 1. No central pulmonary embolus identified given the limitation of respiratory motion. 2. Scattered areas of ground-glass opacity may be related to mild edema, atelectasis, or pneumonitis. This document has been electronically signed by: Vitor Martinez MD on 02/14/2025 00:46:38
[2025-02-13 21:13] VITALS: BP 109/59; PULSE 69; RESP 18; TEMP 36.8; O2SAT 100; BMI 33.1
[2025-02-13 21:49] LABS: MANUAL DIFF FLAG NO
[2025-02-13 21:50] LABS: Basophils Percent Auto 0.9 % (0-2); Eosinophils Absolute Auto 0.2 X10*3/uL (0.0-0.4); Eosinophils Percent Auto 3.8 % (0-4); Hematocrit 31.8 % (37.0-47.0); Hemoglobin 9.8 g/dl (12.0-16.0); Imm Gran Abs Auto 0.01 X10*3/uL (0.00-0.03); Imm Gran Pct Auto 0.2 % (0.0-0.4); Lymphocytes Absolute Auto 1.6 X10*3/uL (1.2-4.9); Lymphocytes Percent Auto 35.4 % (20-40); Mean Corpuscular HGB Conc 30.8 g/dl (31.0-35.0); Mean Corpuscular Hemoglobin 24.6 pg (27.0-33.0); Mean Corpuscular Volume 79.7 fL (80.0-98.0); Mean Platelet Volume 9.4 fL (9.4-12.3); Monocytes Absolute Auto 0.4 X10*3/uL (0.1-1.2); Monocytes Percent Auto 8.8 % (2-11); Neutrophils Absolute Auto 2.3 x10*3/uL (2.0-8.3); Neutrophils Percent Auto 50.9 % (45-73); Platelet Count 333 X10*3/uL (160-400); Red Blood Count 3.99 X10*6/uL (4.20-5.50); Red Cell Distribution Width 16.1 % (11.0-16.0); White Blood Count 4.5 X10*3/uL (4.8-10.8)
[2025-02-13 21:58] LABS: D Dimer High Sensitivity 420 NG/ML
[2025-02-13 22:06] LABS: Alanine Aminotransferase 16 U/L (0-31); Albumin Level 3.9 g/dL (3.5-5.0); Alkaline Phosphatase 75 U/L (39-117); Anion Gap 10 (12-20); Aspartate Amino Transferase 34 U/L (5-31); Bilirubin Total 0.2 mg/dL (0.0-1.0); Blood Urea Nitrogen 23 mg/dL (9-16); Calcium 8.8 mg/dL (8.4-10.2); Carbon Dioxide 24 mmol/L (22-29); Chloride 112 mmol/L (96-108); Creatinine Clr Calc Pharmacy 65.9; Estimated Glomerular Filt Rate > 60; Glucose Random 125 mg/dL (60-115); Potassium 4.1 mmol/L (3.3-5.1); Sodium 142 mmol/L (135-145); Total Protein 6.7 g/dL (6.5-8.0)
[2025-02-13 22:52] VITALS: BP 110/61; PULSE 63; RESP 16; TEMP 36.6; O2SAT 99
--- NOTE | 2025-02-13 23:19 | ED.RECABL ---
HPI - Recheck/Abnormal Lab/Rx General Chief Complaint: Recheck/Abnormal Lab/Rx Stated Complaint: acquisitions librarian sent her over abnormal labs Time Seen by Provider: 02/13/25 22:44 History of Present Illness ED Provider: Jeremie Helton MD HPI narrative: 54-year-old female with shortness of breath for 2 weeks she has a history of asthma COPD. Her acquisitions librarian sent a D-dimer in the outpatient setting which was positive over 400. The patient tells me she has chronic asthma with mild wheezing. She thinks that her routine visit at her acquisitions librarian she was having some heavy breathing upon walking from the chair to the examining table and her allergy doctor decided to send this test off. She has no cough or hemoptysis currently feels well no chest pain no leg swelling she has felt intermittent mild wheezing throughout the week but not actively Related Data Home Medications ?Medication ?Instructions ?Recorded ?Confirmed azelastine 137 mcg (0.1 %) nasal 2 spray intranasal BID 12/26/21 12/06/24 spray calcium citrate 1 tab PO DAILY 12/26/21 12/06/24 cholecalciferol (vitamin D3) 25 1 tab PO DAILY 12/26/21 12/06/24 mcg (1,000 unit) tablet fluticasone propionate 230 1 puff inhalation BID 12/26/21 12/06/24 mcg-salmeterol 21 mcg/actuation HFA inhaler (Advair HFA) hydroxyzine HCl 25 mg tablet 1 tab PO Q8H PRN itch 12/26/21 12/06/24 ketotifen fumarate 0.025 % (0.035 1 drp ophthalmic (eye) BID PRN itch 12/26/21 12/06/24 %) eye drops loratadine 10 mg tablet 1 tab PO DAILY 12/26/21 12/06/24 montelukast 10 mg tablet 1 tab PO BEDTIME 12/26/21 12/06/24 omeprazole 40 mg capsule,delayed 1 cap PO DAILY@0630 12/26/21 12/06/24 release tiotropium bromide 1.25 2 puff PO DAILY 12/26/21 12/06/24 mcg/actuation mist for inhalation (Spiriva Respimat) folic acid 1 mg tablet 1 mg PO DAILY 07/24/22 12/06/24 tezepelumab-ekko 210 mg/1.91 mL mg subcut 10/15/22 12/06/24 (110 mg/mL) subcutaneous syringe (Tezspire) ibuprofen 800 mg tablet 800 mg PO TID PRN 05/06/23 12/06/24 bupropion HCl 300 mg 24 hr tablet, 300 mg PO DAILY 12/22/23 12/06/24 extended release naltrexone 50 mg tablet 50 mg PO DAILY 12/22/23 12/06/24 Previous Rx's ?Medication ?Instructions ?Recorded guaifenesin 1,200 mg tablet, 1,200 mg PO BID #10 tabs 06/03/23 extended release 12 hr (Mucus Relief ER) benzonatate 100 mg capsule 100 mg PO BID PRN cough #14 caps 03/15/24 albuterol sulfate 90 mcg/actuation 2 inh inhalation Q6H PRN shortness 04/12/24 breath activated powder inhaler of breath or wheezing #1 ea guaifenesin 200 mg/5 mL oral liquid 200 mg (5 mL) PO Q4H PRN cough 04/12/24 #118 mL ipratropium 20 mcg-albuterol 100 1 puff inhalation QID COPD 30 days 11/14/24 mcg/actuation mist for inhalation #4 grams (Combivent Respimat) ipratropium bromide 0.02 % 2.5 ml inhalation QID PRN for 12/20/24 solution for inhalation wheezing #125 mL azithromycin 250 mg tablet See Rx Instructions PO .COMPLEX #6 12/21/24 tabs prednisone 20 mg tablet See Rx Instructions .Route 12/21/24 .COMPLEX 12 days #26 tabs Allergies Allergy/AdvReac Type Severity Reaction Status Date / Time latex (Latex) Allergy Mild UNKNOWN Verified 02/13/25 21:17 cats, pollen, mold Allergy Unknown Unknown Uncoded 02/13/25 21:17 Latex Allergy Unknown Unknown Uncoded 02/13/25 21:17 [facility] Past Medical History Medical History Allergic alveolitis Bronchitis SPARKLE (obstructive sleep apnea) Allergic rhinitis Asthma Pulmonary embolism Pulmonary cavitary lesion COPD (chronic obstructive pulmonary disease) Pulmonary cavitary lesion Asthma Surgical History H/O gastric sleeve History of partial hysterectomy History of surgery on wrist History of ankle surgery History of knee replacement Family History Family History Father Prostate cancer Social History Social History Household Members: Spouse and Family Housing: House Are you a primary manager urgent care to a significant other at home: Yes (mother) Do you presently have visiting nurse or other home services: Yes Unable to assess alcohol history related to: Unknown Alcohol intake: never Patient Tobacco Use Status: Never used Tobacco Smoked in Last 30 Days: No Use of substances other than those prescribed or required for medical reasons: No Advance Directives: No Advance Directives Information Provided: Yes Advance Directives Date on File: 12/26/21 Patient : No service: No Current occupational status: disabled Physical Exam Vital Signs: Vital Signs: Last Vital Signs Temp 97.9 F 02/13/25 22:52 Pulse 63 02/13/25 22:52 Resp 16 02/13/25 22:52 BP 110/61 02/13/25 22:52 Pulse Ox 99 02/13/25 22:52 O2 Del Method Room Air 02/13/25 22:52 BMI result Body Mass Index 33.1 Const: Other: EXAM: Gen: Alert, awake, well appearing, well hydrated. Head: Atraumatic Eyes: Anicteric, Normal conjunctiva. ENT: Moist mucosa, no pallor. ? Neck: Supple. Skin: ?No observable rash or bruising on exposed or examined skin Respiratory: Breathing comfortably, No distress.Clear to auscultation bilaterally, symmetric chest expansion, No wheeze, rales, ronchi. Cardiovascular: Regular rate and rhythm. No murmurs or rub. Well perfused periphery, warm extremities. No edema. ? Abdominal: No FOCAL TENDERNESS. Soft, no objective distension. No palpable masses or obvious organomegaly. ?No guarding, no rebound tenderness or other peritoneal findings. : No flank tenderness. Neuro: Alert. Gross movement of all extremities intact. ? Psych: Calm. Cooperative. MSK: No grossly visible deformity. Vital signs: See flowsheet Medications Administered Discontinued Medications Generic Name Dose Route Start Last Admin Trade Name Freq PRN Reason Stop Dose Admin Iohexol 65 ml 02/13/25 23:56 02/13/25 23:57 Iohexol 350 Mg/Ml 100 Ml Infus..Btl IV 02/13/25 23:57 65 ml ONCE ONE Administration Medical Decision Making Medical Decision Making [facility] Narrative: 54-year-old female with history of asthma chronic pulmonary disease history of PE 3 years ago no longer on anticoagulation. D-dimer positive even age adjusted in the outpatient setting. Vital signs stable here no oxygen requirement looks well. No wheeze or respiratory distress. At this time unfortunately despite low suspicion for an acute PE. Lab Data 02/13/25 21:44 02/13/25 21:44 Labs: Lab Results 02/13/25 Range/Units 21:44 WBC 4.5 L (4.8-10.8) X10*3/uL RBC 3.99 L (4.20-5.50) X10*6/uL Hgb 9.8 L (12.0-16.0) g/dl Hct 31.8 L (37.0-47.0) % MCV 79.7 L (80.0-98.0) fL MCH 24.6 L (27.0-33.0) pg MCHC 30.8 L (31.0-35.0) g/dl RDW 16.1 H (11.0-16.0) % Plt Count 333 (160-400) X10*3/uL MPV 9.4 (9.4-12.3) fL Immature Gran % (Auto) 0.2 (0.0-0.4) % Neut % (Auto) 50.9 (45-73) % Lymph % (Auto) 35.4 (20-40) % [place] % (Auto) 8.8 (2-11) % Eos % (Auto) 3.8 (0-4) % Baso % (Auto) 0.9 (0-2) % Lymph # (Auto) 1.6 (1.2-4.9) X10*3/uL [place] # (Auto) 0.4 (0.1-1.2) X10*3/uL Eos # (Auto) 0.2 (0.0-0.4) X10*3/uL Baso # (Auto) 0.0 (0.0-0.2) X10*3/uL Abs Immat Gran (auto) 0.01 (0.00-0.03) X10*3/uL Absolute Neuts (auto) 2.3 (2.0-8.3) x10*3/uL Absolute Nucleated RBC 0.000 (0.0-0.012) X10*3/uL Nucleated RBC % (auto) 0.0 (0.0-0.2) /100WBC D-Dimer High Sensitivty 420 NG/ML Sodium 142 (135-145) mmol/L Potassium 4.1 (3.3-5.1) mmol/L Chloride 112 H (96-108) mmol/L Carbon Dioxide 24 (22-29) mmol/L Anion Gap 10 L (12-20) BUN 23 H (9-16) mg/dL Creatinine 0.91 (0.5-1.4) mg/dL Estim Creat Clear Calc 65.9 Estimated GFR > 60 Random Glucose 125 H (60-115) mg/dL Calcium 8.8 D (8.4-10.2) mg/dL Total Bilirubin 0.2 (0.0-1.0) mg/dL AST 34 H (5-31) U/L ALT 16 (0-31) U/L Alkaline Phosphatase 75 (39-117) U/L Total Protein 6.7 (6.5-8.0) g/dL Albumin 3.9 (3.5-5.0) g/dL Discharge Plan Discharge Clinical Impression: D-dimer, elevated Patient Disposition: Home, Self-Care Instructions: Asthma (ED) Additional Instructions: DISCHARGE DIAGNOSES: Elevation of the D-dimer test probably false-positive HISTORY OF PRESENTATION: Chronic shortness of breath. D-dimer was sent as an outpatient by your acquisitions librarian this was elevated and they sent you to the emergency department EMERGENCY DEPARTMENT COURSE,TESTS, TREATMENTS: While in the ED today you had normal vital signs and oxygen. You looked well and comfortable you had no wheezing on your lung exam. You did not require any treatments. A CT of the chest was performed to exclude blood clot because of the outpatient blood test performed that was positive. This was negative and you did not have a blood clot in your chest per the CT scan DISCHARGE MEDICATIONS: ?[We have made no changes to your regular medication regimen] FOLLOW-UP: ?Call your primary or general physician soon as possible to discuss your symptoms, your ED visit and to discuss follow up plans Call your primary doctor INSTRUCTIONS ?& RETURN PRECAUTIONS: If any symptoms change first call your primary physician, if it is after-hours your primary doctors office should have a provider plant controls specialist you can speak with. If the symptoms are severe or very concerning to you then call 911 or return to the ED. Follow up with your on site coordinator Jeremie Helton MD Emergency Physician [facility] Prescriptions: No Action Combivent Respimat 20-100 mcg/actuation mist 1 puff inhalation QID 30 Days Qty: 4 4RF ipratropium bromide 0.02 % solution 2.5 ml inhalation QID PRN (Reason: for wheezing) Qty: 125 3RF ketotifen fumarate 0.025 % (0.035 %) drops 1 drp ophthalmic (eye) BID PRN (Reason: itch) omeprazole 40 mg capsule,delayed release(DR/EC) 1 cap PO DAILY@0630 montelukast 10 mg tablet 1 tab PO BEDTIME hydroxyzine HCl 25 mg tablet 1 tab PO Q8H PRN (Reason: itch) azelastine 137 mcg (0.1 %) aerosol,spray 2 spray intranasal BID loratadine 10 mg tablet 1 tab PO DAILY calcium citrate 200 mg (950 mg) tablet 1 tab PO DAILY Advair HFA 230-21 mcg/actuation HFA aerosol inhaler 1 puff inhalation BID cholecalciferol (vitamin D3) 25 mcg (1,000 unit) tablet 1 tab PO DAILY Spiriva Respimat 1.25 mcg/actuation mist 2 puff PO DAILY guaifenesin [Mucus Relief ER] 1,200 mg tablet extended release 12hr 1,200 mg PO BID Qty: 10 0RF benzonatate 100 mg capsule 100 mg PO BID PRN (Reason: cough) Qty: 14 0RF albuterol sulfate 90 mcg/actuation aerosol powdr breath activated 2 inh inhalation Q6H PRN (Reason: shortness of breath or wheezing) Qty: 1 0RF guaifenesin 200 mg/5 mL liquid 200 mg PO Q4H PRN (Reason: cough) Qty: 118 0RF azithromycin 250 mg tablet See Rx Instructions .ROUTE .COMPLEX Qty: 6 0RF Rx Instructions: For 250 mg dose pack: take 500 mg today (day 1), then 250 mg for 4 days (days 2-5) prednisone 20 mg tablet See Rx Instructions .ROUTE .COMPLEX 12 Days Qty: 26 0RF Rx Instructions: 20 mg orally, Take 3 tablets for 5 days THEN; Take 2 tablets for 4 days THEN; Take 1 tablet for 3 days Tezspire 210 mg/1.91 mL (110 mg/mL) syringe subcut folic acid 1 mg tablet 1 mg PO DAILY ibuprofen 800 mg tablet 800 mg PO TID PRN bupropion HCl 300 mg tablet extended release 24 hr 300 mg PO DAILY naltrexone 50 mg tablet 50 mg PO DAILY Print Language: Tuvaluan
--- NOTE | 2025-02-13 23:38 | PC.NURSE ---
back from CT
[2025-02-13] MEDS: iohexoL 350 MG/ML 100 ML INFUS..BTL 65 ML IV (23:57)
[2025-02-14 00:39] VITALS: BP 139/60; PULSE 65; RESP 16; TEMP 36.3; O2SAT 96
== END 2025-02-14 00:56 | disposition home or self-care (01) ==
PROVIDERS: Emergency Provider Emergency Medicine; PCP Internal Medicine
DX: R79.1 Abnormal coagulation profile (principal); R79.89 Other specified abnormal findings of blood chemistry; J45.909 Unspecified asthma, uncomplicated; R06.02 Shortness of breath; Z79.899 Other long term (current) drug therapy
CPT/HCPCS: 36415; 71275; 80053; 85025; 85379; 99284; Q9967

== ENCOUNTER → 2025-02-13 22:48 | Outpatient (BNV) | payer OTHER, SELFPAY | PROVIDERS: Emergency Provider Emergency Medicine; PCP Internal Medicine; Visit Provider Radiology Diagnostic Radiology | DX: R91.8 Other nonspecific abnormal finding of lung field (principal) | CPT/HCPCS: 71275 ==

== ENCOUNTER 2025-03-08 10:43 | Outpatient (AMB) | payer OTHER, SELFPAY ==
--- OUTSIDE RECORDS SUMMARY | 2024-06-24 14:30 | XMS_ITS | Encounter Summary ---
Author Organization [facility] Address [address] [place] [address] Care Team Providers Care Rotary Soil Stabilizer Operator Name Role Phone Gt Prescott MD Primary Care Provider [phone] Encounter Details Date Type Department Care Team (Late st Contact Info) Description 06/24/2024 2:30 PM EDT Hospital Encounter TH HISTORIC ENCOUNTERS EASTERN CONVERSION ONLY Manny Leos MD 175 [facility] 160 [place] [address] Social History Tobacco Use Types Packs/Day Years [...] for your loved ones. For example, children's institution attendant or elderly care for an older adult? [...] Care Team (Late st Contact Info) Description 03/20/2025 10:00 AM EDT Evaluation [address] [phone] Talon Pham PTA 03/22/2025 8:30 AM EDT Evaluation [address] [phone] Talon Pham, SECURITY GUARDS DISPATCHER 03/27/2025 8:00 AM EDT Evaluation [facility] [address] [phone] Clare Mukhereje, PT 03/29/2025 8:00 AM EDT Evaluation [facility] [address] [phone] Talon Pham, SECURITY GUARDS DISPATCHER 04/03/2025 8:00 AM EDT Evaluation [facility] [address] [phone] Talon Pham, SECURITY GUARDS DISPATCHER 04/05/2025 8:00 AM EDT Evaluation [facility] [address] [phone] Talon Pham, SECURITY GUARDS DISPATCHER 04/10/2025 8:00 AM EDT Evaluation [address] [phone] Clare Mukherjee, PT 04/27/2025 9:00 AM EDT Nutrition Internal Medicine [facility] 175 [facility] 200 [place] [address] Nicole Abdullahi, RD 175 [place] [phone] 06/02/2025 9:00 AM EDT Office Visit Orthopedic Surgery [facility] 160 175 [facility] 160 [place] [address] Leena Obrien PA [address] [address] 07/25/2025 8:15 AM EST Office Visit Bariatric Surgery [facility] [address] [phone] Mitch Mckinney MD [address] [address] 07/28/2025 9:45 AM EST Office Visit [address] [phone] Gt Prescott MD [address] [place] [address] 01/05/2026 9:00 AM EDT Office Visit [address] [phone] Gt Prescott MD [address] [place] [address] documented as of this encounter Goals Goal [...] on filedocumented in this encounter Care Teams Rotary Soil Stabilizer Operator Relationship Specialty Start Date End Date Gt Prescott MD [address] [place] [phone] PCP - General Internal Medicine 02/21/20 documented as of this encounter
[2025-03-08 10:50] VITALS: PULSE 78; O2SAT 98; BMI 33.5
--- NOTE | 2025-03-08 10:50 | MHC.OFFVIS ---
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 Allergies latex (Latex) Allergy (Mild, Verified 03/08/25 10:56) UNKNOWN cats, pollen, mold Allergy (Unknown, Uncoded 03/08/25 10:56) Unknown Latex Allergy (Unknown, Uncoded 03/08/25 10:56) Unknown Medication List - Last Reconciled 03/08/25 by Khadar Parker MD albuterol sulfate 90 mcg/actuation 2 inhalations inhalation Q6H PRN azelastine 2 sprays intranasal BID azithromycin For 250 mg dose pack: take 500 mg today (day 1), then 250 mg for 4 days (days 2-5) benzonatate 100 mg PO BID PRN bupropion HCl XL 300 mg PO DAILY calcium citrate 1 tab PO DAILY cholecalciferol (vitamin D3) 1 tab PO DAILY fluticasone propion-salmeterol 230-21 mcg/actuation (Advair HFA) 1 puff inhalation BID folic acid 1 mg PO DAILY guaifenesin 200 mg (5 mL) PO Q4H PRN guaifenesin ER (Mucus Relief ER) 1,200 mg PO BID hydroxyzine HCl 1 tab PO Q8H PRN ibuprofen 800 mg PO TID PRN ipratropium bromide 2.5 mL inhalation QID PRN ipratropium-albuterol 20-100 mcg/actuation (Combivent Respimat) 1 puff inhalation QID 30 days ketotifen fumarate 0.025%(0.035%) 1 drp ophthalmic (eye) BID PRN loratadine 1 tab PO DAILY montelukast 1 tab PO BEDTIME naltrexone 50 mg PO DAILY omeprazole 1 cap PO DAILY@0630 prednisone 20 mg orally, Take 3 tablets for 5 days THEN; Take 2 tablets for 4 days THEN; Take 1 tablet for 3 days 12 days tezepelumab-ekko (Tezspire) mg subcut tiotropium bromide 1.25 mcg/actuation (Spiriva Respimat) 2 puffs PO DAILY Do you need a note to return to daycare/school/sports/work: No HPI HPI cough: Details: 54 YEARS OLD FEMALE WITH MULTIPLE MEDICAL PROBLEMS INCLUDING ALLERGIC RHINITIS AND BRONCHIAL ASTHMA, WELL RECURRENT ALVEOLITIS. IS HERE FOR ROUTINE FOLLOW-UP. SHE CONTINUES TO GET SHORT OF BREATH ON MINIMAL WALKING. SHE CONTINUES TO HAVE INTERMITTENT COUGH ESPECIALLY IF SHE TALKS OR LAUGHS. HAS HAD NO RECENT RESPIRATORY INFECTION. SHE HAS HISTORY OF PULMONARY EMBOLISM BUT HER CTA OF THE CHEST IN JANUARY WAS NEGATIVE. SHE HAS HISTORY OF VEXING AND WANING PULMONARY NODULES, CONSIDERED TO BE INFLAMMATORY IN NATURE. SHE ALSO HAS MODERATE CHRONIC ANEMIA. SHE HAS SIGNIFICANT OSTEOARTHRITIS OF THE KNEES AND HAS DIFFICULTY IN WALKING. 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 BUT NOW IT IS DISCONTINUED [facility] Medical History Allergic alveolitis Bronchitis SPARKLE (obstructive sleep apnea) Allergic rhinitis Asthma Pulmonary embolism Pulmonary cavitary lesion COPD (chronic obstructive pulmonary disease) Pulmonary cavitary lesion Asthma Surgical History H/O gastric sleeve History of partial hysterectomy History of surgery on wrist History of ankle surgery History of knee replacement Family History Father Prostate cancer Social History Household Members: Spouse and Family Caregiver staying overnight: No Housing: House Are you a primary progressive care manager to a significant other at home: Yes (mother) Do you presently have visiting nurse or other home services: Yes Unable to assess alcohol history related to: Unknown Alcohol intake: never Patient Tobacco Use Status: Never used Tobacco Advance Directives Date on File: 12/26/21 service: No Current occupational status: disabled Female Reproductive History Menstrual Age of Menarche: 7 Review of Systems Const All systems reviewed & are unremarkable except as noted in HPI and below Eyes Reports no additional complaints ENT Reports no additional complaints Card Denies chest pain, Denies irregular heart rhythm and Denies leg edema Resp Reports as per HPI GI Reports no additional complaints Reports no additional complaints Musc Reports no additional complaints Skin/Breast Reports system reviewed and no additional complaints, except as documented Neuro Reports no additional complaints Psych Reports anxiety and Reports depression Endo Reports no additional complaints Physical Exam Vital Signs: Last Vital Signs Pulse 78 03/08/25 10:50 Pulse Ox 98 03/08/25 10:50 Oxygen Delivery Method Room Air 03/08/25 10:50 BMI result Body Mass Index 41.4 Const General: comfortable (But short of breath on minimal walking and during conversation.), no acute distress, alert and awake Orientation/consciousness: patient oriented x3 HEENT Head: Yes normal to inspection General nose exam: No nasal polyps present and No nasal discharge present Face and sinus: Yes sinuses nontender Mouth: oropharynx normal Throat: Yes posterior oropharynx normal Eyes General: appearance normal, both eyes and all related structures Neck Neck: Yes normal visual inspection, Yes no lymphadenopathy, Yes trachea midline and Yes no JVD Thyroid: Thyroid normal Chest Chest palpation & inspection: normal inspection of the chest, normal palpation of entire chest wall and no tenderness Resp Other: Percussion note resonant, breath sounds are distant but equal on both sides. No audible wheezes . NO CREPITATIONS ARE HEARD. Cardio Palpation: normal PMI Rate: regular rate Rhythm: regular rhythm Heart sounds: no gallops and no murmurs Peripheral pulses: Peripheral pulses 2+ throughout GI Palpation (GI): Soft to palpation, nontender, No hepatosplenomegaly present and no masses Auscultation: normal bowel sounds Back/Spine/Pelvis Thoracic/Lumbar Spine: thoracic and lumbar spine normal to inspection Skin General skin exam: no rashes or lesions noted Neuro General: patient oriented x3 and no focal motor deficits Cranial nerves: Yes CN's II-XII intact bilaterally Extrem General: Yes normal to inspection, Yes no clubbing, cyanosis or edema and Yes no calf tenderness Psych Speech and movement: Normal speech and movement present Results Reviewed Results Reviewed: CTA OF CHEST ON 02/13/25 1. No central pulmonary embolus identified given the limitation of respiratory motion. 2. Scattered areas of ground-glass opacity may be related to mild edema, atelectasis, or pneumonitis. This document has been electronically signed by: Vitor Martinez MD on 02/14/2025 00:46:38 HB 9.8 EIOSINOPHIL COUNT 3.8 NORMAL Assessment & Plan Assessment & Plan (1) COPD (chronic obstructive pulmonary disease): Comment: This patient has been treated for long time as a case of advanced chronic obstructive pulmonary disease/ severe asthma. It seems to be well controlled at this time. She appears to be calm and not anxious at all. Meds . Reviewed in detail Code(s): J44.9 - Chronic obstructive pulmonary disease, unspecified Category: Medical Plan: Continue using Spiriva Respimat 1.25 2 puffs p.o. daily Advair HFA 230-21 1 puff b.i.d. Albuterol HFA 2 puffs Q 4-6 hours p.r.n. Ipratropium bromide 2.5 minutes in the nebulizer Q 4-6 hours p.r.n. at home Come Respimat 20-101 puff Q 4-6 hours p.r.n. Patient was on tress Spire injections but service desk specialist has stopped these ejection (2) Pulmonary nodules: Comment: Previous CT scan of the chest in December 2021 showed multiple pulmonary nodules the largest being [address] SCAN ON 12/10/2022 AND A RECENT CTA SCAN ON 03/15/24 DIFFUSE BRONCHIAL THICKENING CONSISTENT WITH CHRONIC BRONCHITIS. VEXING AND WANING PULMONARY NODULES CONSISTENT WITH, INFLAMMATORY ETIOLOGY. NO CAVITARY LESION WAS NOTED. The last CT scan on 09/27/2024, showed significant improvement and there are no noticeable pulmonary nodules only a few faint ground-glass opacities. There is no cavitary lesion anymore. CTA of chest on 02/13, no evidence of pulmonary embolism. Code(s): R91.8 - Other nonspecific abnormal finding of lung field Category: Medical Plan: I reviewed all these findings with the patient and reassured her. (3) Pulmonary embolism: Comment: Diagnosed to have pulmonary embolism on 06/04/22 No original focus of DVT . Patient completed anticoagulants for almost 8 months and then anticoagulation was stopped . She has had no recurrence. Code(s): I26.99 - Other pulmonary embolism without acute cor pulmonale Category: Medical Plan: Again discussed the results of recentCTA of the chest and reassured the patient. (4) SPARKLE (obstructive sleep apnea): Comment: Patient gives history of diagnosis of SPARKLE, since many years ago. Initial sleep study at [facility] and then following 2 studies at [facility]. After losing significant weight she had stopped using the CPAP, as she did not have any symptoms of SPARKLE. Currently she has gained about. 20 lb of weight but still denies symptoms of SPARKLE. She is being followed at to weight management program of [facility]. Code(s): G47.33 - Obstructive sleep apnea (adult) (pediatric) Category: Medical Plan: Does not need to use the CPAP (5) Allergic alveolitis: Comment: The findings described on CTA of the chest suggest that she gets inflammatory process in the upper lobes, alveolitis/ bronchiolitis. and it is not due to any active bacterial infection. She has no active infection or alveolitis at this time Code(s): J67.9 - Hypersensitivity pneumonitis due to unspecified organic dust Category: Medical Plan: Continue to watch her closely No need of steroids at this time, Will check her every 2 months. Coding Level of Care Code Est Pt Level 4 (08007) Diagnoses COPD (chronic obstructive pulmonary disease) J44.9 Pulmonary nodules R91.8 Pulmonary embolism I26.99 SPARKLE (obstructive sleep apnea) G47.33 Allergic alveolitis J67.9
--- OUTSIDE RECORDS SUMMARY | 2025-03-08 11:27 | XMS_ITS | Clinical Summary ---
Author Organization [facility] Address [address] [place] [address] Care Team Providers Care Museum Exhibit Technician Name Role Phone Gt Prescott MD Primary Care Provider [phone] Allergies Active Allergy Reactions Criticality Noted Date [...] 210 MG/1.91ML SOSY 0 05/12/2023 Active Tiotropium [place] Monohydrate (Spiriva Respimat) 1.25 MCG/ACT AERS Inhale [...] 78 06/19/2023 11:53 AM EDT Temperature 36.1 C (97 F) 06/19/2023 11:53 AM EDT Respiratory Rate - [...] 2024 10/28/2021, 11/13/2020, 10/16/2020 Influenza Vaccine (#1) 2025 2, 05/24/2021, 04/24/2020, Additional history exists Pneumococcal Vaccine Aged Out 10/03/2015 No long er eligible based on patient's age to complete this topic Shingrix-Zoster Vaccine Completed 02/16/2021, 07/11 RSV Ped < 20 months Aged Out No longe r eligible based on patient's age to complete this topic Care Teams Museum Exhibit Technician Relationship Specialty Start Date End Date Gt Prescott MD PCP - General Internal Medicine 05/28/23
--- OUTSIDE RECORDS SUMMARY | 2025-03-08 11:27 | XMS_ITS | Data Portability ---
Author Organization [facility] Pain Managem ent, PAIN OFFICE Address [address] [place] [address] Care Team Providers Care Shoe Sticks Repairer Name Role Phone [facility] Referring Provider [phone] RONALD RM Primary Care Provider [phone] Assessment Encounter Date Assessment Date Assessment LastModified [...] causing mild flattening of the dural sac, ecjq-lb-cjeewyg e right and mild left-sided foraminal stenosis. [...] causing mild flattening of the dural sac, uozv-zo-xytswzo e right and mild left-sided foraminal stenosis. [...] booked after insurance approval. 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 [email or web address] [...] causing mild flattening of the dural sac, nnmr-if-dxwvloy e right and mild left-sided foraminal stenosis. [...] causing mild flattening of the dural sac, mwib-kw-rurmfcm e right and mild left-sided foraminal stenosis. [...] booked after insurance approval. 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 [email or web address] [...] causing mild flattening of the dural sac, qnzc-pi-utapfkh e right and mild left-sided foraminal stenosis. [...] By Organization Details Last Modified Time 04/26/2024 [id number] She was advised to continue activities as tolerated. [email or web address] Not available 04/26/2024 16:35:03 08/11/2024 [id number] She was advised to continue activities as tolerated. [email or web address] Not available 08/11/2024 16:59:30 12/14/2024 [id number] She was advised to continue activities as tolerated. [email or web address] Not available 12/14/2024 12:00:02 Reason for Referral None Reported. Problems Name Problem SNOMED Code Status Onset Date Resolution Date Notes Provider Name and Address Organization Details Recorded Time Low back pain 724134568 Active 2015 Carlita paul MD [address] , [address], [place], [address], [place] [facility] 6 15:50:45 Lumbosacral radiculitis 53539001 Active 2017 Carlita paul MD [address] , [address], [place], [address], [place] [facility] 8 10:17:40 Displacement of lumbar intervertebral disc without myelopathy 96981924 Active 2017 Carlita paul MD [address] , [address], [facility] [place], [address], [place] [facility] 8 10:17:41 Lumbosacral spondylosis without myelopathy 51470112 Active 2017 Carlita paul MD [address] , [address], [facility] [place], [address], [place] [facility] 8 10:17:42 Spinal stenosis of lumbar region 55802031 Active 2017 Carlita paul MD [address] , [address], [facility] [place], [address], [place] [facility] 8 10:17:43 Problem Notes None recorded. Procedures Surgical History Date Name Laterality Status Provider Name and Address Organization Details Recorded Time 12/15/19 25 Lumbar Epidural steroid injection under fluoroscopic guidance completed Carlita Aguilar MD [address] , [address], [place], [address], [place] [facility] 12/14/2024 12:00:56 08/11/20 24 Lumbar Epidural steroid injection under fluoroscopic guidance completed Carlita Aguilar MD [address] , [address], [facility] [place], [address], [place] [facility] 08/11/2024 17:00:18 06/07/20 24 total shoulder replacement completed Carlita Aguilar MD [address] , [address], [facility] [place], [address], [place] [facility] 07/28/2024 11:09:13 04/26/20 24 Lumbar Epidural steroid injection under fluoroscopic guidance completed Carlita Aguilar MD [address] [facility] , [address], [place], [address], [place] [facility] 04/26/2024 16:35:33 12/22/19 24 Lumbar Epidural steroid injection under fluoroscopic guidance completed Carlita Aguilar MD [address] [facility] , [address], [place], [address], [place] [facility] 12/22/2023 15:01:08 07/15/20 23 Lumbar Epidural steroid injection under fluoroscopic guidance completed Carlita Aguilar MD [address] [facility] , [address], [place], [address], [place] [facility] 07/15/2023 14:07:22 03/25/20 23 Lumbar Epidural steroid injection under fluoroscopic guidance completed Carlita Aguilar MD [address] [facility] , [address], [place], [address], [place] [facility] 03/25/2023 10:50:21 12/04/19 23 Lumbar Epidural steroid injection under fluoroscopic guidance completed Carlita Aguilar MD [address] [facility] , [address], [place], [address], [place] [facility] 12/03/2022 10:16:53 07/29/20 22 Lumbar Epidural steroid injection under fluoroscopic guidance completed Carlita Aguilar MD [address] [facility] , [address], [place], [address], [place] [facility] 07/29/2022 09:04:50 03/11/20 22 Lumbar Epidural steroid injection under fluoroscopic guidance completed Carlita Aguilar MD [address] [facility] , [address], [place], [address], [place] [facility] 03/11/2022 14:38:59 09/03/19 22 Radiofrequency of Lumbar/Sacral medial branches supplying the facets under fluoroscopic guidance completed Carlita Aguilar MD [address] [facility] , [address], [place], [address], [place] [facility] 09/03/2021 15:52:43 05/29/20 21 Fluoroscopic Guided Lumbar Facet Steroid Injections of levels completed Carlita Aguilar MD [address] , [address], [place], [address], [place] [facility] 05/29/2021 10:20:51 12/13/19 21 Fluoroscopic Guided Lumbar Facet Steroid Injections of levels completed Carlita Aguilar MD [address] , [address], [place], [address], [place] [facility] 12/12/2020 13:57:08 10/03/19 21 Lumbar Epidural steroid injection under fluoroscopic guidance completed Carlita Aguilar MD [address] , [address], [place], [address], [place] [facility] 10/03/2020 10:00:24 07/11/20 20 Lumbar Epidural steroid injection under fluoroscopic guidance completed Carlita Aguilar MD [address] , [address], [place], [address], [place] [facility] 07/11/2020 10:28:54 06/13/20 20 Fluoroscopic Guided Lumbar Facet Steroid Injections of levels completed Carlita Aguilar MD [address] , [address], [place], [address], [place] [facility] 06/13/2020 10:06:27 02/21/20 20 Lumbar Epidural steroid injection under fluoroscopic guidance completed Carlita Aguilar MD [address] , [address], [place], [address], [place] [facility] 02/21/2020 10:32:02 10/26/19 20 Fluoroscopic Guided Lumbar Facet Steroid Injections of levels completed Carlita Aguilar MD [address] , [address], [place], [address], [place] [facility] 10/26/2019 14:00:13 08/31/19 20 Lumbar Epidural steroid injection under fluoroscopic guidance completed Carlita Aguilar MD [address] , [address], [place], [address], [place] [facility] 09/05/2019 11:29:25 06/08/20 19 Fluoroscopic Guided Lumbar Facet Steroid Injections of levels completed Carlita Aguilar MD [address] , [address], [place], [address], [place] [facility] 06/10/2019 14:46:56 05/20/20 19 arthrodesis of foot completed Carlita Aguilar MD [address] , [address], [place], [address], [place] [facility] 06/08/2019 09:51:34 04/13/20 19 Lumbar Epidural steroid injection under fluoroscopic guidance completed Carlita Aguilar MD [address] , [address], [place], [address], [place] [facility] 04/20/2019 16:00:55 01/13/20 19 Lumbar Epidural steroid injection under fluoroscopic guidance completed Carlita Aguilar MD [address] , [address], [place], [address], [place] [facility] 01/12/2019 13:18:20 09/22/19 19 Lumbar Epidural steroid injection under fluoroscopic guidance completed Carlita Aguilar MD [address] , [address], [place], [address], [place] [facility] 09/23/2018 11:32:09 05/18/20 18 Lumbar Epidural steroid injection under fluoroscopic guidance completed Carlita Aguilar MD [address] , [address], [place], [address], [place] [facility] 05/18/2018 16:07:36 11/25/19 18 Lumbar Epidural steroid injection under fluoroscopic guidance completed Carlita Aguilar MD [address] , [address], [place], [address], [place] [facility] 11/24/2017 11:24:09 06/30/20 17 Lumbar Epidural steroid injection under fluoroscopic guidance completed Carlita Aguilar MD [address] , [address], [place], [address], [place] [facility] 07/03/2017 08:59:37 03/10/20 17 Lumbar Epidural steroid injection under fluoroscopic guidance completed Carlita Aguilar MD [address] , [address], [place], [address], [place] [facility] 03/10/2017 14:35:03 11/27/19 17 Lumbar Epidural steroid injection under fluoroscopic guidance completed Carlita Aguilar MD [address] , [address], [place], [address], [place] [facility] 11/26/2016 10:15:50 07/22/20 16 Lumbar Epidural steroid injection under fluoroscopic guidance completed Carlita Aguilar MD [address] , [address], [place], [address], [place] [facility] 07/22/2016 [...] tunnel surgery completed Carlita Aguilar MD [address] , [address], [place], [address], [place] [facility] 06/26/2023 09:11:01 Imaging Results None recorded. Procedure Notes None recorded. Medical Equipment None Reported. Allergies Allergen ID Allergen Name Allergen Category Reaction Reaction Severity Criticality Documentation Date Start Date Code Code System Note Provider Name and Address Organization Details Recorded Time 35798 latex environme nt,medica tion itching rash Not available Not available Not available 09/22/2018 00541 91 RxNorm Kerrie rutledge [place] [...] 5 mg tablet TAKE DAILY W/FOOD 1 [id number] S,THEN 1/2TAB DAILY X7DAYS, THEN 1/2TAB EVERY [...] IM syringe TO BE ADMINIST ERED BY [facility] FOR IMMUNIZA TION 03/26 completed Not [...] in Arterial blood by Pulse oximetry Systolic And Diastolic Provider Name and Address Organization Details Last Updated DateTime 5 154.94 cm 31.9 kg/m2 22255.1 1 g 71 /min 98 % 98 % 116/81 mm[Hg] Carlita paul MD [facility] [address], [facility] [place], [address], [place] [facility] 5 11:12:48 Date Recorded Body height Heart rate Oxygen saturation Oxygen saturation in Arterial blood by Pulse oximetry Systolic And Diastolic Provider Name and Address Organization Details Last Updated DateTime 5 154.94 cm 78 /min 97 % 97 % 123/70 mm[Hg] Susan Wright [facility] 5 11:40:24 Date Recorded Body height Heart rate Oxygen saturation Oxygen saturation in Arterial blood by Pulse oximetry Systolic And Diastolic Provider Name and Address Organization Details Last Updated DateTime 4 154.94 cm 73 /min 96 % 96 % 118/67 mm[Hg] Almita Black [facility] 4 11:23:25 Date Recorded Body height Body mass index (BMI) Body weight Heart rate Oxygen saturation Oxygen saturation in Arterial blood by Pulse oximetry Systolic And Diastolic Provider Name and Address Organization Details Last Updated DateTime 4 154.94 cm 32.7 kg/m2 53450.4 8 g 69 /min 98 % 98 % 144/69 mm[Hg] Carlita paul MD [address] [facility] , [address], [place], [address], [place] [facility] 4 11:02:55 Date Recorded Body height Heart rate Oxygen saturation Oxygen saturation in Arterial blood by Pulse oximetry Systolic And Diastolic Provider Name and Address Organization Details Last Updated DateTime 4 154.94 cm 68 /min 98 % 98 % 132/73 mm[Hg] Denita hernandez [facility] 4 11:07:24 Social History Question Answer Notes LastModified by Organizat ion Details LastModified Time Tobacco Smoking Status Never Smoker Not Available [employer] 06/08/2020 03:16:12 Which Illicit Or Recreational Drugs Have You Used? No [id number] Information not available 06/08/2020 Education 8 Information no t available 07/09/2016 Live Alone Or With Others? With Others And 3 Children [email or web address] Information not available 07/09/2016 Marital Status [email or web address] Informatio n not available 07/09/2016 What Was The Date Of Your Most Recent Tobacco Screening? 01/12/2019 [id number] Information not available 06/08/2020 Sex: Unknown Functional Status Question Answer Note LastModified by Organization D etails LastModified Time What is your level of alcohol consumption? None [id number] Information not available 06/08/2020 Are you currently employed? No [id number] Information not available 06/08/2020 Mental Status None recorded. Family History Relationship [...] SNOMED-CT Code Diagnosis ICD10 Code Diagnosis Note [id number] Carlita Aguilar MD PAIN OFFICE [address] [place] [address] 07/09/2016 13:59:18 07/13/2016 19:15:18 Lumbosacral radiculitis 42544507 M54.17 Displaceme nt of lumbar intervertebral disc without myelopathy 49479998 M51.26 Lumbosacra l spondylosis without myelopathy 59478933 M47.817 Spinal kj nosis of lumbar region 85193792 M48.06 [id number] Carlita Aguilar MD PAIN OFFICE [address] [place] [address] 07/22/2016 14:36:09 07/23/2016 08:49:04 Lumbosacral radiculitis 75134894 M54.17 Spinal kj nosis of lumbar region 53894109 M48.06 Lumbosacra l spondylosis without myelopathy 41465728 M47.817 Displaceme nt of lumbar intervertebral disc without myelopathy 10144301 M51.26 [id number] Carlita Aguilar MD PAIN OFFICE [address] [place] [address] 08/21/2016 09:37:12 08/21/2016 11:16:14 Lumbosacral radiculitis 53290867 M54.17 Displaceme nt of lumbar intervertebral disc without myelopathy 24906595 M51.26 Lumbosacra l spondylosis without myelopathy 88100522 M47.817 Spinal kj nosis of lumbar region 25628486 M48.06 [id number] Carlita Aguilar MD [facility] PAIN OFFICE [address] [place] [address] 11/26/2016 09:05:49 11/26/2016 10:32:43 Lumbosacral radiculitis 26850204 M54.17 Displaceme nt of lumbar intervertebral disc without myelopathy 19563983 M51.26 Lumbosacra l spondylosis without myelopathy 95962659 M47.817 Spinal kj nosis of lumbar region 36424654 M48.06 [id number] Carlita Aguilar MD PAIN OFFICE [address] [place] [address] 03/10/2017 13:13:41 03/11/2017 09:11:35 Lumbosacral radiculitis 09937526 M54.17 Displaceme nt of lumbar intervertebral disc without myelopathy 42274483 M51.26 Lumbosacra l spondylosis without myelopathy 90212463 M47.817 Spinal kj nosis of lumbar region 22314229 M48.06 99134 Carlita Aguilar MD PAIN OFFICE [address] [place] [address] 06/30/2017 14:07:57 07/03/2017 09:19:34 Lumbosacral radiculitis 02908694 M54.17 Displaceme nt of lumbar intervertebral disc without myelopathy 68158211 M51.26 Lumbosacra l spondylosis without myelopathy 77576956 M47.817 Spinal kj nosis of lumbar region 92720517 M48.062 71367 Carlita Aguilar MD PAIN OFFICE [address] [place] [address] 11/02/2017 09:59:08 11/02/2017 10:18:49 Lumbosacral radiculitis 36791706 M54.17 Displaceme nt of lumbar intervertebral disc without myelopathy 44638312 M51.26 Lumbosacra l spondylosis without myelopathy 70644919 M47.817 Spinal kj nosis of lumbar region 23222867 M48.062 16312 Carlita Aguilar MD [facility] PAIN OFFICE [address] [place] [address] 11/24/2017 10:57:35 11/24/2017 14:35:43 Lumbosacral radiculitis 42485188 M54.17 Displaceme nt of lumbar intervertebral disc without myelopathy 38671933 M51.26 Lumbosacra l spondylosis without myelopathy 51856352 M47.817 Spinal kj nosis of lumbar region 19893744 M48.062 [id number] Carlita Aguilar MD PAIN OFFICE [address] [place] [address] 05/18/2018 09:59:30 05/18/2018 16:10:36 Lumbosacral radiculitis 53730111 M54.17 Displaceme nt of lumbar intervertebral disc without myelopathy 91613475 M51.26 Lumbosacra l spondylosis without myelopathy 28844463 M47.817 Spinal kj nosis of lumbar region 51916973 M48.062 [id number] Carlita Aguilar MD PAIN OFFICE [address] [place] [address] 09/22/2018 09:38:48 09/23/2018 11:34:42 Lumbosacral radiculitis 20541434 M54.17 Displaceme nt of lumbar intervertebral disc without myelopathy 63165634 M51.26 Lumbosacra l spondylosis without myelopathy 28576850 M47.817 Spinal kj nosis of lumbar region 73575823 M48.062 14647 Carlita Aguilar MD PAIN OFFICE [address] [place] [address] 01/12/2019 11:04:15 01/12/2019 13:20:35 Lumbosacral radiculitis 14710327 M54.17 Displaceme nt of lumbar intervertebral disc without myelopathy 88860403 M51.26 Lumbosacra l spondylosis without myelopathy 81011176 M47.817 Spinal kj nosis of lumbar region 91990308 M48.062 [id number] Carlita Aguilar MD PAIN OFFICE [address] [place] [address] 02/11/2019 08:47:12 02/28/2019 13:23:31 Lumbosacral radiculitis 13399038 M54.17 Displaceme nt of lumbar intervertebral disc without myelopathy 83118307 M51. Lumbosacra l spondylosis without myelopathy 54509582 M47.817 Spinal kj nosis of lumbar region 46285524 M48.062 [id number] Carlita Aguilar MD PAIN OFFICE [address] [facility] [place] [address] 04/13/2019 09:43:44 04/20/2019 16:03:11 Lumbosacral radiculitis 55104557 M54.17 Displaceme nt of lumbar intervertebral disc without myelopathy 20020530 M5. Lumbosacra l spondylosis without myelopathy 92133146 M47.817 Spinal kj nosis of lumbar region 72817272 M48.062 [id number] Carlita Aguilar MD PAIN OFFICE [address] [facility] [place] [address] 06/08/2019 09:39:51 06/10/2019 14:50:31 Lumbosacral radiculitis 94075766 M54.17 Displaceme nt of lumbar intervertebral disc without myelopathy 20020530 M51.26 Lumbosacra l spondylosis without myelopathy 42380545 M47.817 Spinal kj nosis of lumbar region 85774187 M48.062 [id number] Carlita Aguilar MD PAIN OFFICE [address] [facility] [place] [address] 08/01/2019 09:43:56 08/05/2019 14:50:16 Lumbosacral radiculitis 52651253 M54.17 Displaceme nt of lumbar intervertebral disc without myelopathy 93219884 M51.26 Lumbosacra l spondylosis without myelopathy 33685076 M47.817 Spinal kj nosis of lumbar region 65142448 M48.062 [id number] Carlita Aguilar MD PAIN OFFICE [address] [facility] [place] [address] 08/31/2019 09:15:58 09/05/2019 11:31:14 Lumbosacral radiculitis 03376010 M54.17 Displaceme nt of lumbar intervertebral disc without myelopathy 34930083 M51.26 Lumbosacra l spondylosis without myelopathy 49637509 M47.817 Spinal kj nosis of lumbar region 62689304 M48.062 [id number] Carlita Aguilar MD PAIN OFFICE [address] [place] [address] 10/26/2019 10:33:53 10/26/2019 14:04:23 Lumbosacral radiculitis 75838956 M54.17 Displaceme nt of lumbar intervertebral disc without myelopathy 99283388 M51. Lumbosacra l spondylosis without myelopathy 35847531 M47.817 Spinal kj nosis of lumbar region 58175732 M48.062 [id number] Carlita Aguilar MD PAIN OFFICE [address] [place] [address] 02/21/2020 10:01:36 02/21/2020 10:34:34 Lumbosacral radiculitis 77352537 M54.17 Displaceme nt of lumbar intervertebral disc without myelopathy 99292824 M51.26 Lumbosacra l spondylosis without myelopathy 85301122 M47.817 Spinal kj nosis of lumbar region 49429602 M48.062 12018 Carlita Aguilar MD PAIN OFFICE [address] [facility] [place] [address] 03/26/2020 13:30:06 03/27/2020 14:14:35 Lumbosacral radiculitis 22361269 M54.17 Displaceme nt of lumbar intervertebral disc without myelopathy 37960114 M51.26 Lumbosacra l spondylosis without myelopathy 98280276 M47.817 Spinal kj nosis of lumbar region 31378067 M48.062 87883 Carlita Aguilar MD PAIN OFFICE [address] [facility] [place] [address] 05/09/2020 09:32:27 05/09/2020 15:34:23 Lumbosacral radiculitis 92398960 M54.17 Displaceme nt of lumbar intervertebral disc without myelopathy 39387496 M51.26 Lumbosacra l spondylosis without myelopathy 00807247 M47.817 Spinal kj nosis of lumbar region 65316406 M48.062 [id number] Carlita Aguilar MD PAIN OFFICE [address] [place] [address] 06/13/2020 09:38:23 06/13/2020 10:36:59 Lumbosacral radiculitis 94555104 M54.17 Displaceme nt of lumbar intervertebral disc without myelopathy 46037990 M51.26 Lumbosacra l spondylosis without myelopathy 31728376 M47.817 Spinal kj nosis of lumbar region 64973118 M48.062 [id number] Carlita Aguilar MD PAIN OFFICE [address] [place] [address] 07/11/2020 09:09:30 07/11/2020 10:56:32 Lumbosacral radiculitis 30352277 M54.17 Displaceme nt of lumbar intervertebral disc without myelopathy 95963516 M51.26 Lumbosacra l spondylosis without myelopathy 63526030 M47.817 Spinal kj nosis of lumbar region 86006247 M48.062 35347 Carlita Aguilar MD PAIN OFFICE [address] [place] [address] 10/01/2020 15:36:47 10/01/2020 15:48:00 Displacement of lumbar intervertebral disc without myelopathy 43881610 M51.26 Lumbosacra l radiculitis 57229703 M54.17 95609 Carlita Aguilar MD [facility] PAIN OFFICE [address] [place] [address] 10/03/2020 09:31:03 10/03/2020 10:06:13 Lumbosacral radiculitis 59221504 M54.17 Displaceme nt of lumbar intervertebral disc without myelopathy 01643979 M51.26 Lumbosacra l spondylosis without myelopathy 63774323 M47.817 Spinal kj nosis of lumbar region 67370221 M48.062 14678 Carlita Aguilar MD [facility] PAIN OFFICE [address] [facility] [place] [address] 11/22/2020 10:56:55 11/23/2020 10:04:47 Lumbosacral radiculitis 13207143 M54.17 Displaceme nt of lumbar intervertebral disc without myelopathy 41153466 M51.26 Lumbosacra l spondylosis without myelopathy 14705316 M47.817 Spinal kj nosis of lumbar region 20772674 M48.062 [id number] Carlita Aguilar MD [facility] PAIN OFFICE [address] [facility] [place] [address] 12/12/2020 13:06:16 12/12/2020 16:02:14 Lumbosacral radiculitis 08358461 M54.17 Displaceme nt of lumbar intervertebral disc without myelopathy 61726310 M51.26 Lumbosacra l spondylosis without myelopathy 70907787 M47.817 Spinal kj nosis of lumbar region 72462140 M48.062 [id number] Carlita Aguilar MD [facility] PAIN OFFICE [address] [place] [address] 01/09/2021 14:00:49 01/09/2021 14:07:36 Lumbosacral radiculitis 24762871 M54.17 Displaceme nt of lumbar intervertebral disc without myelopathy 66400588 M51.26 Lumbosacra l spondylosis without myelopathy 62251872 M47.817 Spinal kj nosis of lumbar region 61475259 M48.062 50896 Carlita Aguilar MD [facility] PAIN OFFICE [address] [facility] [place] [address] 05/29/2021 09:55:12 05/29/2021 10:26:38 Lumbosacral radiculitis 88651520 M54.17 Displaceme nt of lumbar intervertebral disc without myelopathy 86150974 M51.26 Lumbosacra l spondylosis without myelopathy 75723249 M47.817 Spinal kj nosis of lumbar region 68996604 M48.062 79651 Carlita Augilar MD [facility] PAIN OFFICE [address] [facility] [place] [address] 06/28/2021 09:03:36 06/28/2021 09:25:12 Lumbosacral radiculitis 79210818 M54.17 Displaceme nt of lumbar intervertebral disc without myelopathy 77849433 M51.26 Lumbosacra l spondylosis without myelopathy 04645820 M47.817 Spinal kj nosis of lumbar region 79377248 M48.062 [id number] Carlita Aguilar MD PAIN OFFICE [email or web address] [facility] [place] [address] 09/03/2021 13:12:29 09/03/2021 16:09:38 Lumbosacral radiculitis 54377290 M54.17 Displaceme nt of lumbar intervertebral disc without myelopathy 18007232 M51.26 Lumbosacra l spondylosis without myelopathy 87107535 M47.817 Spinal kj nosis of lumbar region 78027443 M48.062 43524 Carlita Aguilar MD PAIN OFFICE [address] [email or web address] [address] 10/07/2021 09:03:04 10/07/2021 09:22:08 Lumbosacral radiculitis 17918369 M54.17 Displaceme nt of lumbar intervertebral disc without myelopathy 95402300 M51.26 Lumbosacra l spondylosis without myelopathy 86216241 M47.817 Spinal kj nosis of lumbar region 73135920 M48.062 [id number] Carlita Aguilar MD PAIN OFFICE [address] [place] [address] 02/27/2022 14:14:40 02/27/2022 15:01:06 Lumbosacral radiculitis 18276667 M54.17 Displaceme nt of lumbar intervertebral disc without myelopathy 22160790 M51.26 Lumbosacra l spondylosis without myelopathy 01600763 M47.817 Spinal kj nosis of lumbar region 84718773 M48.062 [id number] Carlita Aguilar MD PAIN OFFICE [address] [email or web address] [address] 03/11/2022 14:10:41 03/11/2022 14:44:15 Lumbosacral radiculitis 72093307 M54.17 Displaceme nt of lumbar intervertebral disc without myelopathy 95048533 M51.26 Lumbosacra l spondylosis without myelopathy 11872232 M47.817 Spinal kj nosis of lumbar region 21862901 M48.062 68128 Carlita Aguilar MD PAIN OFFICE [address] [place] [address] 06/02/2022 14:36:35 06/02/2022 15:13:52 Lumbosacral radiculitis 00475605 M54.17 Displaceme nt of lumbar intervertebral disc without myelopathy 20020530 M51.26 Lumbosacra l spondylosis without myelopathy 81629022 M47.817 Spinal kj nosis of lumbar region 90709245 M48.062 86230 Carlita Aguilar MD PAIN OFFICE [address] [place] [address] 07/01/2022 10:50:13 07/01/2022 14:03:13 Lumbosacral radiculitis 67657864 M54.17 Displaceme nt of lumbar intervertebral disc without myelopathy 20020530 M51.26 Lumbosacra l spondylosis without myelopathy 41982443 M47.817 Spinal kj nosis of lumbar region 65076009 M48.062 11049 Carlita Aguilar MD PAIN OFFICE [address] [place] [address] 07/29/2022 08:27:40 07/29/2022 09:10:29 Lumbosacral radiculitis 57113592 M54.17 Displaceme nt of lumbar intervertebral disc without myelopathy 17841343 M51.26 Lumbosacra l spondylosis without myelopathy 82496637 M47.817 Spinal kj nosis of lumbar region 48815345 M48.062 56655 Carlita Aguilar MD PAIN OFFICE [address] [place] [address] 10/23/2022 08:32:02 10/23/2022 11:04:01 Lumbosacral radiculitis 31674765 M54.17 Displaceme nt of lumbar intervertebral disc without myelopathy 69013357 M51.26 Lumbosacra l spondylosis without myelopathy 69232301 M47.817 Spinal kj nosis of lumbar region 51287805 M48.062 84243 Carlita Aguilar MD PAIN OFFICE [address] [place] [address] 12/03/2022 08:53:57 12/03/2022 10:54:32 Lumbosacral radiculitis 56562694 M54.17 Displaceme nt of lumbar intervertebral disc without myelopathy 50846793 M51.26 Lumbosacra l spondylosis without myelopathy 03489232 M47.817 Spinal kj nosis of lumbar region 30835022 M48.062 93562 Carlita Aguilar MD PAIN OFFICE [address] [place] [address] 02/19/2023 09:18:24 02/19/2023 10:31:40 Spinal stenosis of lumbar region 22481708 M48.062 Displaceme nt of lumbar intervertebral disc without myelopathy 81372294 M51.26 Lumbosacra l radiculitis 56850285 M54.17 Lumbosacra l spondylosis without myelopathy 69214998 M47.817 91188 Carlita Aguilar MD PAIN OFFICE [address] [place] [address] 03/25/2023 09:02:29 03/25/2023 11:21:54 Lumbosacral radiculitis 91290784 M54.17 Displaceme nt of lumbar intervertebral disc without myelopathy 27692195 M51.26 Lumbosacra l spondylosis without myelopathy 04040863 M47.817 Spinal kj nosis of lumbar region 91287940 M48.062 [id number] Carlita Aguilar MD PAIN OFFICE [address] [place] [address] 06/26/2023 08:48:28 06/26/2023 10:32:50 Spinal stenosis of lumbar region 50219894 M48.062 Displaceme nt of lumbar intervertebral disc without myelopathy 33502044 M51.26 Lumbosacra l radiculitis 48193118 M54.17 Lumbosacra l spondylosis without myelopathy 48667601 M47.817 73527 Carlita Aguilar MD PAIN OFFICE [address] [place] [address] 07/15/2023 10:27:39 07/15/2023 15:36:47 Spinal stenosis of lumbar region 62865648 M48.062 Lumbosacra l radiculitis 24886212 M54.17 Displaceme nt of lumbar intervertebral disc without myelopathy 82599351 M51.26 Lumbosacra l spondylosis without myelopathy 77323227 M47.817 07661 Carlita Aguilar MD PAIN OFFICE [address] [place] [address] 10/16/2023 08:40:15 10/16/2023 10:13:18 Spinal stenosis of lumbar region 98840506 M48.062 Displaceme nt of lumbar intervertebral disc without myelopathy 25832425 M51.26 Lumbosacra l radiculitis 77166283 M54.17 Lumbosacra l spondylosis without myelopathy 44030962 M47.817 55832 Carlita Aguilar MD PAIN OFFICE [address] [place] [address] 12/22/2023 14:38:42 12/22/2023 15:55:19 Spinal stenosis of lumbar region 71391328 M48.062 Lumbosacra l radiculitis 17114612 M54.17 Displaceme nt of lumbar intervertebral disc without myelopathy 60245958 M51.26 Lumbosacra l spondylosis without myelopathy 38875599 M47.817 05765 Carlita Aguilar MD PAIN OFFICE [address] [place] [address] 03/23/2024 14:43:41 03/23/2024 16:19:28 Lumbosacral radiculitis 57415949 M54.17 Displaceme nt of lumbar intervertebral disc without myelopathy 40681014 M51.26 Spinal kj nosis of lumbar region 07724838 M48.062 Lumbosacra l spondylosis without myelopathy 91402544 M47.817 93913 Carlita Aguilar MD PAIN OFFICE [address] [place] [address] 04/26/2024 11:20:20 04/26/2024 16:39:44 Spinal stenosis of lumbar region 55842583 M48.062 Lumbosacra l radiculitis 18560185 M54.17 Displaceme nt of lumbar intervertebral disc without myelopathy 88011639 M51.26 Lumbosacra l spondylosis without myelopathy 79147016 M47.817 78051 Carlita Aguilar MD PAIN OFFICE [address] [place] [address] 07/28/2024 10:57:06 07/28/2024 16:19:19 Lumbosacral radiculitis 02532651 M54.17 Displaceme nt of lumbar intervertebral disc without myelopathy 53378014 M51.26 Spinal kj nosis of lumbar region 39979600 M48.062 Lumbosacra l spondylosis without myelopathy 10325184 M47.817 35588 Carlita Aguilar MD PAIN OFFICE [address] [place] [address] 08/11/2024 10:59:11 08/11/2024 17:07:59 Spinal stenosis of lumbar region 12501569 M48.062 Lumbosacra l radiculitis 79479469 M54.17 Displaceme nt of lumbar intervertebral disc without myelopathy 93130834 M51.26 Lumbosacra l spondylosis without myelopathy 41550599 M47.817 84156 Carlita Aguilar MD PAIN OFFICE [address] [place] [address] 11/14/2024 11:07:01 11/14/2024 15:22:28 Lumbosacral radiculitis 44767818 M54.17 Spinal kj nosis of lumbar region 28766167 M48.062 Displaceme nt of lumbar intervertebral disc without myelopathy 14067391 M51.26 Lumbosacra l spondylosis without myelopathy 73131560 M47.817 [id number] Carlita Aguilar MD PAIN OFFICE [address] [place] [address] 12/14/2024 11:21:01 12/14/2024 16:02:11 Lumbosacral radiculitis 89653032 M54.17 Spinal kj nosis of lumbar region 60467417 M48.062 Displaceme nt of lumbar intervertebral disc without myelopathy 79909485 M51.26 Lumbosacra l spondylosis without myelopathy 83454430 M47.817 Health Concerns Section Related Observation LastModified by Organization Detai ls LastModified Time None Recorded Concern Status LastModified by Organization Details LastModified Time None Recorded Advance Directives Directive None Recorded Payers Insurance Date Sequence Insurance Name Policy Number Policy Chatterjee Covered Member ID Chatterjee Member ID Guarantor Name 09/25/2020 1 [facility] [id number] Codie Fernández [id number] Codie Fernández 09/25/2020 1 [facility] Kitty Fernández [id number] Codie Fernández 09/25/2020 1 [facility] [place] Kitty Fernández [id number] Codie Fernández 12/11/2024 1 [facility] (MEDICAID REPLACEMENT - HMO) [facility] Codie Fernández [id number] Codie Fernández Notes Date Note Type Note Provider Name and Address Organization Details Recorded Time 04/26/2024 text/html She is here for a lumbar epidural steroid injection under fluoroscopic guidance. Carlita Aguilar MD [address] , [address], [place], [address], [facility] Pain Management 04/26/2024 16:43:00 07/28/2024 text/html She [...] foot surgery on 11/05/2023 and is seeing [facility]. Her gait is altered due to ankle problems and this is impacting her low back pain.She had carpal tunnel surgery in February and May 2023. She had left shoulder replacement. She is doing better with physical therapy for her shoulder. Carlita Aguilar MD [address] [facility] , [address], [place], [address], [facility] Pain Management 07/29/2024 09:59:27 08/11/2024 text/html She is here for a lumbar epidural steroid injection under fluoroscopic guidance. Carlita Aguilar MD [address] [facility] [address] [facility] , [address], [place], [address], [facility] Pain Management 08/11/2024 17:11:07 11/14/2024 text/html She [...] foot surgery on 11/05/2023 and is seeing [facility]. Her gait is altered due to ankle problems and this is impacting her low back pain.She had carpal tunnel surgery in February and May 2023. She had left shoulder replacement. She is doing better with physical therapy for her shoulder. Carlita Aguilar MD [address] [facility] , [address], [place], [address], [facility] Pain Management 11/29/2024 15:07:06 12/14/2024 text/html She is here for a lumbar epidural steroid injection under fluoroscopic guidance. Carlita Aguilar MD [address] [place] [address] , [address], [place], [address], [facility] Pain Management 12/14/2024 16:10:36 OBGyn Episode No OBEpisode recorded.
== END 2025-03-08 11:04 | disposition home or self-care (01) ==
LOC: HO.HPS 10:44
PROVIDERS: PCP Internal Medicine; Visit Provider Internal Medicine
DX: J44.9 Chronic obstructive pulmonary disease, unspecified (principal); R91.8 Other nonspecific abnormal finding of lung field; I26.99 Other pulmonary embolism without acute cor pulmonale; G47.33 Obstructive sleep apnea (adult) (pediatric); J67.9 Hypersensitivity pneumonitis due to unspecified organic dust
CPT/HCPCS: 99214

== ENCOUNTER → 2025-03-08 10:43 | Outpatient (BNVA) | payer OTHER, SELFPAY | PROVIDERS: PCP Internal Medicine; Visit Provider Internal Medicine | DX: J44.89 Other specified chronic obstructive pulmonary disease (principal); R91.8 Other nonspecific abnormal finding of lung field; I26.99 Other pulmonary embolism without acute cor pulmonale; G47.33 Obstructive sleep apnea (adult) (pediatric); J67.9 Hypersensitivity pneumonitis due to unspecified organic dust | CPT/HCPCS: 99212 ==

== ENCOUNTER → 2025-03-30 09:00 | Outpatient (BNV) | payer OTHER, SELFPAY | PROVIDERS: PCP Internal Medicine; Visit Provider Radiology Body Imaging | DX: Z12.31 Encounter for screening mammogram for malignant neoplasm of breast (principal) | CPT/HCPCS: 77063; 77067 ==

== ENCOUNTER 2025-03-30 09:03 | Outpatient (REF) | payer OTHER, SELFPAY ==
--- OUTSIDE RECORDS SUMMARY | 2024-06-24 14:30 | XMS_ITS | Encounter Summary ---
Author Organization [facility] Address [address] [place] [address] Care Team Providers Care Human Resources Hr Generalist Name Role Phone Gt Prescott MD Primary Care Provider [phone] Encounter Details Date Type Department Care Team (Late st Contact Info) Description 06/24/2024 2:30 PM EDT Hospital Encounter TH HISTORIC ENCOUNTERS EASTERN CONVERSION ONLY Manny Leos MD 175 [facility] 160 [place] [address] Social History Tobacco Use Types Packs/Day Years [...] for your loved ones. For example, child care sitter or elderly care for an older adult? [...] Care Team (Late st Contact Info) Description 03/31/2025 7:30 AM EDT Treatment [facility] [address] [phone] Clare Mukherjee PT 04/03/2025 8:00 AM EDT Treatment [facility] [address] [phone] Talon Pham, STAFF FIELD ENGINEER 04/05/2025 8:00 AM EDT Treatment [facility] [address] [phone] Talon Pham, STAFF FIELD ENGINEER 04/10/2025 8:00 AM EDT Treatment [facility] [address] [phone] Clare Mukherjee, PT 04/17/2025 8:30 AM EDT Treatment [facility] [address] [phone] Talon Pham, STAFF FIELD ENGINEER 04/20/2025 9:30 AM EDT Treatment [facility] [address] [address] Talon Pham, STAFF FIELD ENGINEER 04/26/2025 8:30 AM EDT Treatment [facility] [address] [phone] Clare Mukherjee, PT 04/27/2025 9:00 AM EDT Nutrition Internal Medicine [facility] 175 [facility] 200 [place] [address] Nicole Abdullahi, RD 175 [place] [phone] 06/02/2025 9:00 AM EDT Office Visit Orthopedic Surgery [facility] [address] [phone] Leena Obrien PA [address] [address] 07/25/2025 8:15 AM EST Office Visit Bariatric Surgery [facility] [address] [phone] Mitch Mckinney MD [address] [address] 07/28/2025 9:45 AM EST Office Visit [address] [phone] Gt Prescott MD [address] [place] [address] 01/05/2026 9:00 AM EDT Office Visit [address] [phone] Gt Prescott MD [address] [place] [address] documented as of this encounter Goals Goal [...] on filedocumented in this encounter Care Teams Human Resources Hr Generalist Relationship Specialty Start Date End Date Gt Prescott MD [address] [place] [id number] PCP - General Internal Medicine 02/21/20 documented as of this encounter
--- OUTSIDE RECORDS SUMMARY | 2025-03-30 09:26 | XMS_ITS ---
Author Name [facility] Organization Unknown Care Team Organization Name Specialty Phone Email Start Date End Da adam [facility] RONALD RM Primary Care 07/01/2022 4
--- OUTSIDE RECORDS SUMMARY | 2025-03-30 09:26 | XMS_ITS | Clinical Summary ---
Author Organization [employer] [facility] Address [address] [place] [address] Care Team Providers Care Stay Cutter Name Role Phone Gt Prescott MD Primary Care Provider [phone] Allergies Active Allergy Reactions Criticality Noted Date [...] 210 MG/1.91ML SOSY 0 05/12/2023 Active Tiotropium Eunice Monohydrate (Spiriva Respimat) 1.25 MCG/ACT AERS Inhale [...] age to complete this topic Care Teams Stay Cutter Relationship Specialty Start Date End Date Gt Prescott MD PCP - General Internal Medicine 05/28/23
--- OUTSIDE RECORDS SUMMARY | 2025-03-30 09:26 | XMS_ITS | Encounter Summary ---
Author Organization [employer] Address [address] [facility] [address] [place] [address] Care Team Providers Care Tattoo Identifier Name Role Phone Unavailable Primary Care Provider Unavailabl e Reason for Visit * Reason Comments Med Refill Encounter Details Date Type Department Care Team (Late st Contact Info) Description 12/20/2024 Refill [facility] [address], [place] [phone] Alexus Haney DDS [address], [place] [phone] Social History Tobacco Use Types Packs/Day Years [...] Telephone Encounter - Alexus Haney DDS - 12/22/2024 3:38 PM EDT Approving, but needs appt for additional refills. documented in this encounter Plan of Treatment Not on file documented as of this encounter Visit Diagnoses Not on filedocumented in this encounter
== END 2025-03-30 09:04 | disposition home or self-care (01) ==
LOC: HO.MAMMO 09:03
PROVIDERS: PCP Internal Medicine; Visit Provider Internal Medicine
DX: Z12.31 Encounter for screening mammogram for malignant neoplasm of breast (principal)
CPT/HCPCS: 77063; 77067

== ENCOUNTER 2025-05-16 14:01 | Outpatient (AMB) | payer OTHER, SELFPAY ==
--- OUTSIDE RECORDS SUMMARY | 2024-06-24 14:30 | XMS_ITS | Encounter Summary ---
Author Organization [facility] Address [address] [place] [address] Care Team Providers Care Child Support Investigator Name Role Phone Gt Prescott MD Primary Care Provider [phone] Encounter Details Date Type Department Care Team (Late st Contact Info) Description 06/24/2024 2:30 PM EDT Hospital Encounter TH HISTORIC ENCOUNTERS EASTERN CONVERSION ONLY Manny Leos MD [address] [place] [phone] Social History Tobacco Use Types Packs/Day [...] care for your loved ones. For example, vocational childcare teacher or elderly care for an older adult? [...] Date Recorded What is your living situation? 0 01/03/2025 Comments Unknown Sex and Gender Information Value Date Recorded Sex Assigned at Not on file Legal Sex Female 5:04 AM EST Gender Identity Not on file Sexual Orientation Not on file documented as of this encounter Plan of Treatment Upcoming Encounters Date Type Department Care Team (Late st Contact Info) Description 06/02/2025 9:00 AM EDT Office Visit Orthopedic Surgery - [place] 160 175 [facility] 160 [place] [phone] Leena Obrien PA 175 [facility] 160 [place] [address] 07/25/2025 8:15 AM EST Office Visit Bariatric Surgery - [place] [address] [facility] [address] [place] [address] Mitch Mckinney MD [address] [place] [phone] 07/28/2025 9:45 AM EST Office Visit Adult [address] [phone] Gt Prescott MD [address] [place] [address] 01/05/2026 9:00 AM EDT Office Visit [address] [phone] Gt Prescott MD [address] [place] [address] documented as of this encounter Goals Goal [...] on filedocumented in this encounter Care Teams Child Support Investigator Relationship Specialty Start Date End Date Gt Prescott MD [address] [place] [phone] PCP - General Internal Medicine 02/21/20 documented as of this encounter
[2025-05-16 14:08] VITALS: BP 130/64; PULSE 74; O2SAT 98; BMI 32.9
--- NOTE | 2025-05-16 14:08 | A.OFFVIS_ITS ---
Vital Signs 05/16/25 14:08 Height 5 ft 1 in Weight 174 lb 2.643 oz BMI 32.9 BP 130/64 Blood Pressure Location Lt brachial Position Sitting Pulse 74 Pulse Source Pulse Oximeter Pulse Oximetry (%) 98 Oxygen Delivery Method Room Air Intake Visit Reasons: cough, wheeze Intake Note: pt is here for sick visit, coughing and wheezing for over a week, no fever, some short of breath with walking. Foam Cutting Supervisor Required: No Allergies latex (Latex) Allergy (Mild, Verified 05/16/25 14:33) UNKNOWN cats, pollen, mold Allergy (Unknown, Uncoded 05/16/25 14:33) Unknown Latex Allergy (Unknown, Uncoded 05/16/25 14:33) Unknown Medication List - Last Reconciled 05/16/25 by Khadar Parker MD albuterol sulfate 90 mcg/actuation 2 inhalations inhalation Q6H PRN azelastine 2 sprays intranasal BID benzonatate 100 mg PO BID PRN bupropion HCl XL 300 mg PO DAILY calcium citrate 1 tab PO DAILY cholecalciferol (vitamin D3) 1 tab PO DAILY fluticasone propion-salmeterol 230-21 mcg/actuation (Advair HFA) 1 puff inhalation BID folic acid 1 mg PO DAILY guaifenesin 200 mg (5 mL) PO Q4H PRN guaifenesin ER (Mucus Relief ER) 1,200 mg PO BID hydroxyzine HCl 1 tab PO Q8H PRN ibuprofen 800 mg PO TID PRN ipratropium bromide 2.5 mL inhalation QID PRN ipratropium-albuterol 20-100 mcg/actuation (Combivent Respimat) 1 puff inhalation QID 30 days ketotifen fumarate 0.025%(0.035%) 1 drp ophthalmic (eye) BID PRN loratadine 1 tab PO DAILY montelukast 1 tab PO BEDTIME naltrexone 50 mg PO DAILY omeprazole 1 cap PO DAILY@0630 tiotropium bromide 1.25 mcg/actuation (Spiriva Respimat) 2 puffs PO DAILY Do you need a note to return to daycare/school/sports/work: No HPI HPI cough, wheeze: Details: THIS 54 YEARS OLD FEMALE IS A CASE OF CHRONIC OBSTRUCTIVE PULMONARY DISEASE, AND IN ADDITION SHE HAS FREQUENT BOUTS OF ACUTE BRONCHITIS/ALVEOLITIS. SHE COMES TODAY FOR AN URGENT VISIT COMPLAINING THAT SHE HAS INCREASED COUGH WITHOUT MUCH EXPECTORATION. SHE FEELS MORE SHORT OF BREATH AND GETS TIRED VERY EASILY. SHE DENIES ANY FEVER OR CHILLS. SHE IS FEELING QUITE WEAK TODAY , AND DOES NOT TALK TOO MUCH. WHILE SITTING SHE DOES NOT SEEM TO BE IN ANY ACUTE DISTRESS. [facility] Medical History Allergic alveolitis Bronchitis SPARKLE (obstructive sleep apnea) Allergic rhinitis Asthma Pulmonary embolism Pulmonary cavitary lesion COPD (chronic obstructive pulmonary disease) Pulmonary cavitary lesion Asthma Surgical History H/O gastric sleeve History of partial hysterectomy History of surgery on wrist History of ankle surgery History of knee replacement Family History Father Prostate cancer Social History Household Members: Spouse and Family Caregiver staying overnight: No Housing: House Are you a primary field care manager to a significant other at home: Yes (mother) Do you presently have visiting nurse or other home services: Yes Alcohol intake: never Patient Tobacco Use Status: Never used Tobacco Advance Directives Date on File: 12/26/21 service: No Current occupational status: disabled Female Reproductive History Menstrual Age of Menarche: 7 Review of Systems Const All systems reviewed & are unremarkable except as noted in HPI and below Eyes Reports no additional complaints ENT Reports no additional complaints Card Denies chest pain, Denies irregular heart rhythm and Denies leg edema Resp Reports as per HPI GI Reports no additional complaints Reports no additional complaints Musc Reports no additional complaints Skin/Breast Reports system reviewed and no additional complaints, except as documented Neuro Reports no additional complaints Psych Reports anxiety and Reports depression Endo Reports no additional complaints Physical Exam Vital Signs: Last Vital Signs Pulse 74 05/16/25 14:08 BP 130/64 05/16/25 14:08 Pulse Ox 98 05/16/25 14:08 Oxygen Delivery Method Room Air 05/16/25 14:08 BMI result Body Mass Index 32.9 Const General: comfortable (But short of breath on minimal walking and during conversation.), no acute distress, alert and awake Orientation/consciousness: patient oriented x3 HEENT Head: Yes normal to inspection General nose exam: No nasal polyps present and No nasal discharge present Face and sinus: Yes sinuses nontender Mouth: oropharynx normal Throat: Yes posterior oropharynx normal Eyes General: appearance normal, both eyes and all related structures Neck Neck: Yes normal visual inspection, Yes no lymphadenopathy, Yes trachea midline and Yes no JVD Thyroid: Thyroid normal Chest Chest palpation & inspection: normal inspection of the chest, normal palpation of entire chest wall and no tenderness Resp Other: Percussion note resonant, breath sounds are distant but equal on both sides. No audible wheezes . NO CREPITATIONS ARE HEARD. Cardio Palpation: normal PMI Rate: regular rate Rhythm: regular rhythm Heart sounds: no gallops and no murmurs Peripheral pulses: Peripheral pulses 2+ throughout GI Palpation (GI): Soft to palpation, nontender, No hepatosplenomegaly present and no masses Auscultation: normal bowel sounds Back/Spine/Pelvis Thoracic/Lumbar Spine: thoracic and lumbar spine normal to inspection Skin General skin exam: no rashes or lesions noted Neuro General: patient oriented x3 and no focal motor deficits Cranial nerves: Yes CN's II-XII intact bilaterally Extrem General: Yes normal to inspection, Yes no clubbing, cyanosis or edema and Yes no calf tenderness Psych Speech and movement: Normal speech and movement present Assessment & Plan Assessment & Plan (1) COPD (chronic obstructive pulmonary disease): Comment: This patient has been treated for long time as a case of advanced chronic obstructive pulmonary disease/asthma. It seems to be well controlled at this time. SHE COMES FOR AN URGENT VISIT BECAUSE COMPLAINING OF INCREASED COUGH FOR 1 WEEK, AND SHE HAS GENERALIZED WEAKNESS. NO FEVER OR CHILLS She CLINICALLY I THINK SHE HAS AN ACUTE BRONCHITIS. SHE IS ALSO PRONE TO HAVE ACUTE ALVEOLITIS . Code(s): J44.9 - Chronic obstructive pulmonary disease, unspecified Category: Medical Plan: CHEST X-RAY IS ORDERED. I WOULD ALSO CHECK CBC WITH DIFF, SED RATE AND CRP LEVEL . IN THE MEANTIME I A.M. STARTING HER ON PREDNISONE 20 MG B.I.D. FOR 5 DAYS. AND DOXYCYCLINE 100 B.I.D. FOR 1 WEEK. Continue regularmeds including Advair 230-211 puff b.i.d., ipratropium-albuterol 20-100 mcg ( Combivent Respimat ) 1 inhalation Q 4-6 hours p.r.n. (2) Bronchitis: Comment: SEE THE NOTE UNDER COPD Code(s): J40 - Bronchitis, not specified as acute or chronic Category: Medical Plan: UNDER COPD (3) Allergic rhinitis: Comment: This patient does have symptoms of chronic allergic rhinitis, with intermittent flare ups She has been under care of allergy specialists, At present her symptoms are minimal and seem to be better controlled. Code(s): J30.9 - Allergic rhinitis, unspecified Category: Medical Plan: Continue loratadine 1 tablet daily as needed. Continue montelukast 10 mg daily Orders: Orders Complete Blood Count Auto Diff Today J40 - Bronchitis, not specified as acute or chronic, J44.9 - Chronic obstructive pulmonary disease, unspecified Erythrocyte Sedimentation Rate Today J40 - Bronchitis, not specified as acute or chronic, J44.9 - Chronic obstructive pulmonary disease, unspecified XR chest 2V Today J40 - Bronchitis, not specified as acute or chronic, J44.9 - Chronic obstructive pulmonary disease, unspecified CRP High Sensitivity Today J40 - Bronchitis, not specified as acute or chronic, J44.9 - Chronic obstructive pulmonary disease, unspecified, J67.9 - Hypersensitivity pneumonitis due to unspecified organic dust Coding Level of Care Code Est Pt Level 3 (54806) Diagnoses COPD (chronic obstructive pulmonary disease) J44.9 Bronchitis J40 Allergic rhinitis J30.9
--- OUTSIDE RECORDS SUMMARY | 2025-05-16 17:17 | XMS_ITS | Clinical Summary ---
Author Organization [facility] [place] [address] Phone Care Team Providers Care Service Bar Cashier Name Role Phone Gt Prescott MD Primary Care Provider [phone] Allergies Active Allergy Reactions Criticality Noted Date Comments Cat Dander 07/08/2010 Latex Itching,Rash High 11/30/2006 Mold 08/13/2010 Pollen Extracts 11/25/2010 Medications acetaminophen (TYLENOL) 500 mg tablet Take 1 tablet (500 mg total) by mouth 3 (three) times a day if needed for mild pain. 03/02/20 23 Active azelastine (ASTELIN) 137 mcg (0.1 %) nasal spray Administer 2 sprays into each nostril 2 (two) times a day. 09/15/19 23 Active EPINEPHrine (EpiPen 2-Alexis) 0.3 mg/0.3 mL injection Inject 0.3 mL (0.3 mg total) as directed if needed for anaphylaxis. 02/08/20 21 Active fluticasone propion-salmeter oL (Advair HFA) 230-21 mcg/actuation inhaler Inhale 1 puff by mouth 2 (two) times a day. 06/14/20 23 Active FREESTYLE LANCETS MISC 1 Lancet by extracorporeal route 1 (one) time each day. 07/10/20 23 Active ipratropium (ATROVENT) 0.02 % nebulizer solution Take 2.5 mL (0.5 mg total) by nebulization 4 (four) times a day if needed. wheeze 09/12/19 23 Active ipratropium-albu teroL (Combivent Respimat) 20-100 mcg/actuation inhaler Inhale 1 puff by mouth every 6 (six) hours if needed for wheezing. ) for up to 30 days 05/18/20 23 Active tiotropium (Spiriva Respimat) 1.25 mcg/actuation inhalation spray Inhale 2 puffs by mouth 1 (one) time each day. 09/09/19 24 Active tezepelumab-ekko (Tezspire) Inject 1.91 mL (210 mg total) under the skin. 09/22/19 23 Active montelukast (SINGULAIR) 10 mg tabletIndication s:Severe persistent asthma, unspecified whether complicated (CMS/[facility] V28) TAKE 1 TABLET BY MOUTH AT BEDTIME FOR 360 DAYS. 90 tablet 3 07/29/20 24 Active Vitamin D3 25 mcg (1,000 unit) capsule TAKE 1 CAPSULE BY MOUTH EVERY DAY 90 capsule 1 09/19/19 25 Active buPROPion XL (Wellbutrin XL) 300 mg 24 hr tabletIndication s:Class 1 obesity due to excess calories with body mass index (BMI) of 30.0 to 30.9 in adult, unspecified whether serious comorbidity present Take 1 tablet (300 mg total) by mouth 1 (one) time each day. Do not crush, chew, or split. 30 each 2 10/28/19 25 Active folic acid (FOLVITE) 1 mg tablet TAKE 1 TABLET BY MOUTH EVERY DAY 90 tablet 1 11/18/19 25 Active loratadine (CLARITIN) 10 mg tablet TAKE 1 TABLET BY MOUTH EVERY DAY 90 tablet 1 11/18/19 25 Active blood sugar diagnostic (FreeStyle Lite Strips) test strip USE TO CHECK BLOOD SUGAR ONCE DAILY 200 strip 1 12/21/19 25 Active hydrOXYzine HCL (ATARAX) 25 mg tablet TAKE 1 TABLET BY MOUTH EVERY 8 HOURS NEEDED FOR ITCHING 270 tablet 12/27/19 25 Active calcium citrate (CALCITRATE) 950 mg (200 mg elemental calcium) tabletIndication s:Obstructive sleep apnea (adult) (pediatric),[place] re persistent asthma with (acute) exacerbation (CMS/[facility]ER[facility] V28) TAKE 1 TABLET BY MOUTH EVERY DAY 90 tablet 1 01/10/20 25 Active omeprazole (PriLOSEC) [address] capsule TAKE 1 CAPSULE BY MOUTH EVERY DAY 90 capsule 1 02/07/20 25 Active cyclobenzaprine (FLEXERIL) 5 mg tablet TAKE 1 TABLET BY MOUTH 3 TIMES A DAY IF NEEDED FOR MUSCLE SPASMS. 30 tablet 03/06/20 25 Active ibuprofen (ADVIL,MOTRIN) 800 mg tablet TAKE 1 TABLET (800 MG TOTAL) BY MOUTH EVERY 8 (EIGHT) HOURS IF NEEDED FOR MILD PAIN. FOR 30 DAYS 90 tablet 1 04/05/20 25 Active Active Problems Problem Noted Date Diagnosed Date [...] Right carpal tunnel syndrome 11/10/2022 Pulmonary embolism ([facility] V24, [facility] V28) Prediabetes 02/04/2022 PLMD (periodic limb movement disorder) 9 Acquired pes planus of right foot 05/31/2019 Overview (05/26/2024): Surgery by Dr. Anderson, 05/20/2019 Obesity (BMI 30-39.9) 03/03/2019 Overview (05/26/2024): Mar 2017: Sleeve gastrectomy s/p LAPBAND removal Subclinical hypothyroidism 12/13/2018 Pulmonary nodules 05/05/2018 Seasonal allergies 04/28/2018 Severe persistent asthma ([facility] V28) 8 Spinal stenosis of lumbar region 11/02/2017 Obstructive sleep apnea of adult 03/07/2017 Overview (05/26/2024): UNTREATED (August 2022) [facility] Home Polysomnogram: Date 02/27/2017; AHI 7, Unclassified apneas 1; Obstructive apneas 19; Central apneas 5; Mixed apneas 0; hypopneas 19; average oxygen saturation 96% (lowest 90% without saturations <88% for 5% or more of study). Treatment study ordered due to intolerance in the past. If insurance declines, will trial CPAP autoset instead. [facility] Polysomnogram treatment study. Date 03/22/2017. SE 87 % SM 91 %; spent 27 % of the study in REM. At the optimal pressure of 9; RDI 2 (AHI 2), Central apneas 2; Obstructive apneas 0; Mixed apneas 0; hypopneas 0; RERAs 0; and, average oxygen saturation was 92%. For the entire study, PLMs ~36. [facility] Polysomnogram: Date 08/11/2019; Wt 200#; BMI 38; [...] Encounters Date Type Department Care Team Description 04/20/2025 9:30 AM EDT Treatment [address] [phone] Talon Pham PTA [place], initial encounter (Primary Dx) 04/17/2025 8:30 AM EDT Treatment [address] [phone] Talon Pham PTA [place], initial encounter (Primary Dx); Muscle spasm 04/10/2025 8:00 AM EDT Treatment [address] [phone] Clare Mukherjee, PT [place], initial encounter (Primary Dx); Muscle spasm 04/05/2025 8:00 AM EDT Treatment [address] [phone] Talon Pham PTA [place], initial encounter (Primary Dx); Muscle spasm 03/31/2025 7:30 AM EDT Treatment [address] [phone] Clare Mukherjee, PT [place], initial encounter (Primary Dx); Muscle spasm 03/27/2025 8:00 AM EDT Treatment [address] [phone] Clare Mukherjee, PT [place], initial encounter (Primary Dx); Muscle spasm 03/16/2025 Telephone Adult Medicine [facility] [address] [place] [phone] Gt Prescott MD 02/28/2025 8:00 AM EDT Office Visit Bariatric Surgery - [place] [address] [place] [address] Mitch Mckinney MD Class 1 obesity due to excess calories with body mass index (BMI) of 34.0 to 34.9 in adult, unspecified whether serious comorbidity present (Primary Dx) 02/16/2025 3:00 PM EDT Evaluation [facility] Outpatient Rehabilitation [facility] [address] [place] [address] Clare Mukherjee PT [place], initial encounter; Muscle spasm from Last 3 Months Immunizations Name Administration [...] hiatal hernia OTHER SURGICAL HISTORY 2003 PROCEDURE: NE TOTAL ABDOMINAL HYSTERECT W/WO RMVL TUBE OVARY; [...] 03/07/2017 DX:Obstructive sleep apnea of adult; COMMENT: [facility] Home Polysomnogram: Date 02/27/2017; AHI 7, [...] obesity with BMI of 4 0.0-44.9, adult ([facility] V24, [facility] V28) 11/03/2014 DX:Morbid obesity wit h BMI of 40.0-44.9, adult ([facility]) Severe persistent asthma ([facility] V28) 03/08/2018 DX:Severe persistent asthma Allergic conjunctivitis of both eyes 04/28/2018 DX:Allergic conjunctivitis of both eyes Chronic rhinitis 04/28/2018 DX:Chronic rhin itis Total knee replacement status, right 02/01/2020 DX:Total knee replacement status, right; COMMENT: 02/10 COPD (chronic obstructive pu lmonary disease) ([facility] V24, [facility] V28) DX:COPD (chronic o bstructive pulmonary disease) ([facility]) Pulmonary embolism ([facility] V24, [facility] V28) 07/15/2022 DX:Pulmonary embolism (HCC) Family History [...] for your loved ones. For example, child & adolescent psychiatrist or elderly care for an older adult? [...] Sign Reading Time Taken Comments Blood Pressure 167/92 02/28/2025 7:59 AM EDT Pulse 80 02/28/2025 7:59 AM EDT Temperature 36.7 C (98 F) 02/28/2025 7:59 AM EDT Respiratory Rate 14 01/25/2025 8:30 AM EDT Oxygen Saturation 98% 01/25/2025 8:30 AM EDT Inhaled Oxygen Concentration - - Weight 82.6 kg (182 lb) 02/28/2025 7:59 AM EDT Height 154.9 cm (5' 1 ) 02/28/2025 7:59 AM EDT Body Mass Index 34.39 02/28/2025 7:59 AM EDT Plan of Treatment Upcoming Encounters Date Type Department Care Team (Late st Contact Info) Description 06/02/2025 9:00 AM EDT Office Visit Orthopedic Surgery [facility] [address] [facility] [address] [place] [phone] Leena Obrien PA [address] [facility] [address] [place] [address] 07/25/2025 8:15 AM EST Office Visit Bariatric Surgery [facility] [address] [facility] [address] [place] [phone] Mitch Mckinney MD [address] [place] [phone] 07/28/2025 9:45 AM EST Office Visit Adult Medicine [address] [phone] Gt Prescott MD [address] [place] [address] 01/05/2026 9:00 AM EDT Office Visit Adult Medicine [facility] [address] [place], [place] [phone] Gt Prescott MD [address] [place] [address] Health Maintenance Due Date Last Done Comments Hepatitis B Vaccines (1 of 3 - 19+ 3-dose series) 1987 Pneumococcal Vaccine: 50+ Years (2 of 2 - PCV) 10/03/2016 10/03/2015 Breast Cancer Screening 07/20/2020 07/20/2018, 05/07 HIV Screening 08/02/2022 COVID-19 Vaccine ( - season) 2025 07/09/2022, 10/28/2021, 11/13/2020, Additional history exists Influenza Vaccine (#1) 2025 , 07/10/2022, 05/24/2021, Additional history exists Cervical Cancer Screening: HPV 12/24/2025 12/24/2020 Social Influencers of Health Screening 01/03/2026 01/03/2025 Cholesterol Screening (Lipid Panel) 12/31/2028 01/01/2024, 01/01/2024 Colorectal Cancer Screening: Colonoscopy 07/28/2029 07/28/2019 DTaP,Tdap,and Td Vaccines (6 - Td or Tdap) 11/04/2034 11/04/2024, 11/03/2023, 03/07/2013, Additional history exists Zoster Vaccines Completed 02/16/2021, 07/11/2020 Hepatitis C Screening Completed 05/24/2021 Depression Screening Completed 01/03/2025, 04/26/20 24 HIB Vaccines Aged Out No longer eligi [...] Procedure Name Priority Date/Time Associated Diagnosis Comments DEPRESSION SCREENING Routine 04/26/2024 LIPID PANEL Routine 01/01/2024 HEPATITIS C SCREENING Routine 05/24/2021 HPV Routine 12/24/2020 COLONOSCOPY Routine 07/28/2019 SCR MAMMO BI INCL CAD Routine 07/20/2018 8:05 AM EST Encounter for screening mammogram for malignant neoplasm of breast from Last 3 Months or Most Recently Relevant to Health Maintenance Results * Depression Screening (04/26/2024) [facility] Depression Screening abstracted Result [facility] Final Result * Lipid panel (01/01/2024) [facility] LDL/HDL Ratio 2 0 - 4 Triglycerides 55 0 - 150 mg/dL Cholesterol 194 0 - 200 mg/dL HDL 90 >=40 mg/dL LDL Cholesterol 93 0 - 100 mg/dL Blood Venous blood specimen / Unknown Result [facility] LAB BLOOD ORDERABLES June l Result * Hepatitis C Screening (05/24/2021) [facility] Hepatitis C Screening abstracted Result [facility] Final Result * Cervical Cancer Screening: HPV (12/24/2020) [facility] Cervical Cancer Screening: HPV negative, abstracted Result [facility] Final Result * Colonoscopy (07/28/2019) [facility] Colonoscopy no interpretation , abstracted Anatomical Region Laterality Modality Other Result [facility] Final Result * SCR MAMMO BI INCL [...] Most Recently Relevant to Health [place] [id number] [facility] Advance Directives Documents on File Type Date Recorded Patient Tour Sales Representative Expl anation Health Care Decision (hx) 12/19/2014 [...] (hx) 12/15/2014 AD LEE DIRECTIVE Care Teams Service Bar Cashier Relationship Specialty Start Date End Date Gt Prescott MD [address] [place] [phone] PCP - General Internal Medicine 02/21/20
--- OUTSIDE RECORDS SUMMARY | 2025-05-16 17:17 | XMS_ITS | Encounter Summary ---
Author Organization [facility] Address [address] [facility] 7t [place] [address] Care Team Providers Care Janitor Custodian Name Role Phone Unavailable Primary Care Provider Unavailabl e Encounter Details Date Type Department Care Team (Latest Contact Info) Description 06/25/2021 Abstract [facility] Dental, Provider, DDS Social History Tobacco [...] as of this encounter Plan of Treatment Not on file documented as of this encounter Visit Diagnoses Not on filedocumented in this encounter
--- OUTSIDE RECORDS SUMMARY | 2025-05-16 17:17 | XMS_ITS | Encounter Summary ---
Author Organization [employer] Address [address] [facility] 7t [place] [address] Care Team Providers Care Financial Administrative Assistant Name Role Phone Unavailable Primary Care Provider Unavailabl e Reason for Visit * Reason Comments Med Refill Encounter Details Date Type Department Care Team (Late st Contact Info) Description 09/24/2023 Refill [facility] ADULT DENTAL [address] [place], [place] [phone] Alexus Haney, DDS [address] [place], [place] [phone] Encounter for dental examination Social History Tobacco [...]
--- OUTSIDE RECORDS SUMMARY | 2025-05-16 17:17 | XMS_ITS | Encounter Summary ---
Author Organization [facility] Address [address] [facility] [address] [place] [address] Care Team Providers Care Dredging Inspector Name Role Phone Unavailable Primary Care Provider Unavailabl e Reason for Visit * Reason Comments Med Refill Encounter Details Date Type Department Care Team (Late st Contact Info) Description 01/24/[address] [facility] ADULT DENTAL [address] [place], [place] [phone] Miguel Ángel Chong DMD [address] [place], [place] [phone] Encounter for dental examination Social History Tobacco [...] Encounter - Miguel Ángel Chong DMD - 01/24/2025 1:17 PM EDT Approving, but needs appt for additional refills. documented in this encounter Plan of Treatment Not on file documented as of this encounter Visit Diagnoses Diagnosis Encounter for dental examination documented in this encounter
--- OUTSIDE RECORDS SUMMARY | 2025-05-16 17:17 | XMS_ITS | Encounter Summary ---
Author Organization [employer] Address [address] [facility] [address] [place] [address] Care Team Providers Care Water Project Manager Name Role Phone Unavailable Primary Care Provider Unavailabl e Reason for Visit * Reason Comments Med Refill Encounter Details Date Type Department Care Team (Late st Contact Info) Description 08/23/2023 Refill [facility] ADULT DENTAL [address] [place], [place] [phone] Miguel Ángel Chong, AMOS [address] [place], [place] [phone] Encounter for dental examination Social History Tobacco [...]
--- OUTSIDE RECORDS SUMMARY | 2025-05-16 17:17 | XMS_ITS | Encounter Summary ---
Author Organization [employer] [facility] Address [address] [facility] [address]t [place] [address] Care Team Providers Care Shuttle Car Operator Name Role Phone Unavailable Primary Care Provider Unavailabl e Reason for Visit * Reason Comments Med Refill Encounter Details Date Type Department Care Team (Late st Contact Info) Description 06/06/2024 Refill [facility] ADULT DENTAL [address] [place], [place] [phone] Miguel Ángel Chong DMD [address] [place], [place] [phone] Encounter for dental examination Social History Tobacco [...]
--- OUTSIDE RECORDS SUMMARY | 2025-05-16 17:17 | XMS_ITS | Clinical Summary ---
Author Organization [employer] Address [address] [facility] 7t [place] [address] Care Team Providers Care News Assistant Name Role Phone Unavailable Primary Care [...] PUFF BY MOUTH TWICE A DAY 09/27/19 Active fluticasone-salm eterol (AirDuo RespiClick) 232-14 MCG/ACT inhaler fluticasone 232 mcg-salmeterol 14 mcg/actuation breath activated powdr Active folic acid (Folvite) 1 MG tablet Take 1,000 mcg by mouth in the morning. 10/04/19 Active hydrOXYzine HCl (Atarax) 25 MG tablet [...] NOT SWALLOW. 473 mL 06/07/20 24 Active acetaminophen (Tylenol 8 Hour) 650 MG ER tablet TAKE 1 TAB BY MOUTH EVERY 8 HOURS IF NEEDED FOR MODERATE PAIN FOR 10 DAYS. DO NOT CRUSH/CHEW/SPLIT 15 tablet 12/23/19 25 Active amoxicillin (Amoxil) 500 MG capsule TAKE 4 CAPSULES OF AMOXICILLIN 1 HOUR PRIOR DENTAL PROCEDURE 12 capsule 12/23/19 25 Active Denta 5000 Plus 1.1 % creamIndications :Encounter for dental examination APPLY A PEA SIZE AMOUNT ON TOOTHBRUSH, BRUSH TEETH THREE TIMES A DAY 51 g 02/29/20 25 Active Active Problems Problem Noted Date Diagnosed Date Status post shoulder replacement, left Closed fracture of tooth 06/24/2024 Class 1 [...] adult 03/07/2017 Overview (07/12/2024): UNTREATED (August 2022) [facility] Home Polysomnogram: Date 02/27/2017; AHI 7, Unclassified apneas 1; Obstructive apneas 19; Central apneas 5; Mixed apneas 0; hypopneas 19; average oxygen saturation 96% (lowest 90% without saturations <88% for 5% or more of study). Treatment study ordered due to intolerance in the past. If insurance declines, will trial CPAP autoset instead. [facility] Polysomnogram treatment study. Date 03/22/2017. SE 87 % SM 91 %; spent 27 % of the study in REM. At the optimal pressure of 9; RDI 2 (AHI 2), Central apneas 2; Obstructive apneas 0; Mixed apneas 0; hypopneas 0; RERAs 0; and, average oxygen saturation was 92%. For the entire study, PLMs ~36. [facility] Polysomnogram: Date 08/11/2019; Wt 200#; BMI [...] Encounters Date Type Department Care Team Description 02/27/2025 Refill [facility] ADULT DENTAL [address] [place] [address] Miguel Ángel Chong DMD Encounter for dental examination from Last 3 Months Immunizations Immunization Administration Dates Next Due INFLUENZA INJECTABLE QUADRIV [...] Panel 1968 SDOH Screening 1968 Sigmoidoscopy 1968 Disability Screening 1968 Alcohol/Substance Use Screening 1980 Hepatitis C Screening 1986 Hepatitis B Vaccines (1 of 3 - 19+ 3-dose series) 1987 Pap Smear 1989 Cervical Cancer Screening 1998 HPV/Cotest 1998 Mammogram 2008 Pneumococcal Vaccine: 50+ Years (2 of 2 - PCV) 10/03/2016 10/03/2015 Dental X-Ray: Full Mouth 06/26/2024 06/25/2021 Dental Oral Exam 01/10/2025 07/12/2024, 10/07/2022 Dental Prophylaxis 01/16/2025 07/18/2024, 0 12/23/2023, 11/21/2022 COVID-19 Vaccine ( season) 2025 07/09/2022, 10/28/2021, 11/13/2020, Additional history exists Influenza Vaccine (#1) 2025 , 07/10/2022, 05/24/2021, Additional history exists Diabetes: Hemoglobin A1C 11/11/2025 11/11/2024 Tobacco Screening [...] Procedure Name Priority Date/Time Associated Diagnosis Comments BITEWING - SINGLE RADIOGRAPHIC IMAGE Routine 11/14/2024 1:00 PM EDT PROPHYLAXIS - ADULT Routine 07/18/2024 1 1:00 AM EST Dental plaque PERIODIC ORAL EVALUATION - ESTABLISHED PATIENT Routine 07/12/2024 10:00 AM EST Encounter for dental examination Dental caries Need for full coverage dental crown from Last 3 Months or Most Recently Relevant to Health Maintenance Insurance [facility] MEDICAID STAND ADULT
--- OUTSIDE RECORDS SUMMARY | 2025-05-16 17:17 | XMS_ITS | Encounter Summary ---
Author Organization [facility] Address [address] [facility] [address]t [place] [address] Care Team Providers Care Motor Tune Up Specialist Name Role Phone Unavailable Primary Care Provider Unavailabl e Encounter Details Date Type Department Care Team (Late st Contact Info) Description 04/28/2023 Abstract [facility] ADULT DENTAL [address] [place], [place] [phone] Alexus Haney DDS [address] [place], [place] [phone] Social History Tobacco Use Types Packs/Day Years [...]
--- OUTSIDE RECORDS SUMMARY | 2025-05-16 17:17 | XMS_ITS | Encounter Summary ---
Author Organization [employer] Address [address] [facility] [address]t [place] [address] Care Team Providers Care Repair Mechanic Name Role Phone Unavailable Primary Care Provider Unavailabl e Encounter Details Date Type Department Care Team (Latest Contact Info) Description 08/21/2020 Abstract [facility] Dental, Provider, DDS Social [...]
--- OUTSIDE RECORDS SUMMARY | 2025-05-16 17:17 | XMS_ITS | Encounter Summary ---
Author Organization [employer] [facility] Address [address] [facility] 7t [place] [address] Care Team Providers Care Land Surveyor Assistant Name Role Phone Unavailable Primary Care Provider Unavailabl e Encounter Details Date Type Department Care Team (Late st Contact Info) Description 04/28/2023 Abstract [facility] ADULT DENTAL [address] [place], [place] [phone] Alexus Haney DDS [address] [place], [place] [phone] Social History Tobacco Use Types Packs/Day Years [...]
--- OUTSIDE RECORDS SUMMARY | 2025-05-16 17:17 | XMS_ITS | Encounter Summary ---
Author Organization [employer] [facility] Address [address] [facility] [address]t [place] [address] Care Team Providers Care Big Data Engineer Name Role Phone Unavailable Primary Care Provider Unavailabl e Reason for Visit * Reason Comments Med Refill Encounter Details Date Type Department Care Team (Late st Contact Info) Description 10/21/2023 Refill [facility] ADULT DENTAL [address] [place], [place] [phone] Miguel Ángel Chong DMD [address] [place], [place] [phone] Encounter for dental examination Social History Tobacco [...]
--- OUTSIDE RECORDS SUMMARY | 2025-05-16 17:17 | XMS_ITS | Encounter Summary ---
Author Organization [employer] [facility] Address [address] [facility] [address]t [place] [address] Care Team Providers Care Public Works Commissioner Name Role Phone Unavailable Primary Care Provider Unavailabl e Reason for Visit * Reason Comments Med Refill Encounter Details Date Type Department Care Team (Late st Contact Info) Description 12/24/2023 Refill [facility] ADULT DENTAL [address] [place], [place] [phone] Miguel Ángel Chong DMD [address] [place], [place] [phone] Encounter for dental examination Social History Tobacco [...]
--- OUTSIDE RECORDS SUMMARY | 2025-05-16 17:17 | XMS_ITS | Encounter Summary ---
Author Organization [employer] Address [address] [facility] 7t [place] [address] Care Team Providers Care Political Science Research Assistant Name Role Phone Unavailable Primary Care Provider Unavailabl e Reason for Visit * Reason Onset Date Comments crown fell off 04/06/2023 Encounter Details Date Type Department Care Team (Late st Contact Info) Description 04/06/2023 Telephone [facility] ADULT DENTAL [address] [place], [place] [phone] Alexus Haney DDS [address] [place], [place] [phone] crown fell off Social History Tobacco Use [...]
--- OUTSIDE RECORDS SUMMARY | 2025-05-16 17:17 | XMS_ITS | Encounter Summary ---
Author Organization [employer] Address [address] [facility] [address] [place] [address] Care Team Providers Care Fish Flipper Name Role Phone Unavailable Primary Care Provider Unavailabl e Reason for Visit * Reason Comments Med Refill Encounter Details Date Type Department Care Team (Late st Contact Info) Description 09/30/2022 Refill [facility] ADULT DENTAL [address] [place] [address] Alexus Haney DDS [address] [place], [place] [phone] Pain (Primary Dx) Social History Tobacco Use [...]
--- OUTSIDE RECORDS SUMMARY | 2025-05-16 17:17 | XMS_ITS | Encounter Summary ---
Author Organization [employer] Address [address] [facility] [address]t [place] [address] Care Team Providers Care Cover Inspector Name Role Phone Unavailable Primary Care Provider Unavailabl e Reason for Visit * Reason Onset Date Comments Med Refill 03/11/2023 Encounter Details Date Type Department Care Team (Late st Contact Info) Description 03/11/2023 Telephone [facility] ADULT DENTAL [address] [place], [place] [phone] Alexus Haney, DDS [address] [place], [place] [phone] Med Refill Social History Tobacco Use Types [...]
--- OUTSIDE RECORDS SUMMARY | 2025-05-16 17:17 | XMS_ITS | Encounter Summary ---
Author Organization [employer] Address [address] [facility] 7t [place] [address] Care Team Providers Care Chef De Froid Name Role Phone Unavailable Primary Care Provider Unavailabl e Reason for Visit * Reason Comments Med Refill Encounter Details Date Type Department Care Team (Late st Contact Info) Description 07/22/2023 Refill [facility] ADULT DENTAL [address] [place], [place] [phone] Miguel Ángel Chong DMD [address] [place], [place] [phone] Encounter for dental examination Social History Tobacco [...]
--- OUTSIDE RECORDS SUMMARY | 2025-05-16 17:17 | XMS_ITS | Encounter Summary ---
Author Organization [employer] Address [address] [facility] [address] [place] [address] Care Team Providers Care Seo Analyst Name Role Phone Unavailable Primary Care Provider Unavailabl e Encounter Details Date Type Department Care Team (Latest Contact Info) Description 04/15/2019 Abstract [facility] Dental, Provider, DDS Social [...]
--- OUTSIDE RECORDS SUMMARY | 2025-05-16 17:17 | XMS_ITS | Encounter Summary ---
Author Organization [facility] [facility] [employer] Address [address] [facility] 7t [place] [address] Care Team Providers Care Plant Operations Worker Name Role Phone Unavailable Primary Care Provider Unavailabl e Encounter Details Date Type Department Care Team (Late st Contact Info) Description 08/20/2022 Abstract [facility] ADULT DENTAL [address] [place], [place] [phone] Alexus Haney DDS [address] [place], [place] [phone] Social History Tobacco Use Types Packs/Day Years [...]
--- OUTSIDE RECORDS SUMMARY | 2025-05-16 17:17 | XMS_ITS | Encounter Summary ---
Author Organization [employer] Address [address] [facility] [address]t [place] [address] Care Team Providers Care Oceanographic Meteorologist Name Role Phone Unavailable Primary Care Provider Unavailabl e Reason for Visit * Reason Comments Med Refill Encounter Details Date Type Department Care Team (Late st Contact Info) Description 12/20/2024 Refill [facility] ADULT DENTAL [address] [place], [place] [phone] Alexus Haney DDS [address] [place], [place] [phone] Social History Tobacco Use Types Packs/Day Years [...]
--- OUTSIDE RECORDS SUMMARY | 2025-05-16 17:17 | XMS_ITS | Encounter Summary ---
Author Organization [employer] Address [address] [facility] 7t [place] [address] Care Team Providers Care Garnett Mechanic Name Role Phone Unavailable Primary Care Provider Unavailabl e Reason for Visit * Reason Onset Date Comments appt 01/19/2024 Encounter Details Date Type Department Care Team (Late st Contact Info) Description 01/19/2024 Telephone [facility] ADULT DENTAL [address] [place], [place] [phone] Alexus Haney, DDS [address] [place], [place] [phone] appt Social History Tobacco Use Types Packs/Day [...]
--- OUTSIDE RECORDS SUMMARY | 2025-05-16 17:17 | XMS_ITS | Encounter Summary ---
Author Organization [employer] Address [address] [facility] [address] [place] [address] Care Team Providers Care Research Coordinator Name Role Phone Unavailable Primary Care Provider Unavailabl e Reason for Visit * Reason Comments Med Refill Encounter Details Date Type Department Care Team (Late st Contact Info) Description 06/24/2023 Refill [facility] ADULT DENTAL [address] [place], [place] [phone] Alexus Haney, DDS [address] [place], [place] [phone] Encounter for dental examination Social History Tobacco [...]
--- OUTSIDE RECORDS SUMMARY | 2025-05-16 17:17 | XMS_ITS | Clinical Summary ---
Author Organization [facility] Address [address] [place] [address] Care Team Providers Care Dry Cleaning Checker Name Role Phone Gt Prescott MD Primary Care Provider [phone] Allergies Active Allergy Reactions Criticality Noted Date [...] 210 MG/1.91ML SOSY 0 05/12/2023 Active Tiotropium [place] Monohydrate (Spiriva Respimat) 1.25 MCG/ACT AERS Inhale [...] 03/07/2023 03/07/2013, 04/11/2009 COVID-19 Vaccine ( season) 2025 10/28/2021, 11/13/2020, 10/16/2020 Influenza Vaccine (#1) 2025 2, 05/24/2021, 04/24/2020, Additional history exists Pneumococcal Vaccine Aged Out 10/03/2015 No long er eligible based on patient's age to complete this topic Shingrix-Zoster Vaccine Completed 02/16/2021, 07/11 RSV Ped < 20 months Aged Out No longe r eligible based on patient's age to complete this topic Care Teams Dry Cleaning Checker Relationship Specialty Start Date End Date Gt Prescott MD PCP - General Internal Medicine 05/28/23
--- OUTSIDE RECORDS SUMMARY | 2025-05-16 17:17 | XMS_ITS | Encounter Summary ---
Author Organization [facility] [facility] Address [address] [facility] [address] [place] [address] Care Team Providers Care Missileman Name Role Phone Unavailable Primary Care Provider Unavailabl e Reason for Visit * Reason Comments Med Change Request Encounter Details Date Type Department Care Team (Late st Contact Info) Description 07/26/2024 Refill [facility] ADULT DENTAL [address] [place], [place] [phone] Miguel Ángel Chong DMD [address] [place], [place] [phone] Encounter for dental examination Social History Tobacco [...]
--- OUTSIDE RECORDS SUMMARY | 2025-05-16 17:17 | XMS_ITS | Encounter Summary ---
Author Organization [employer] [facility] Address [address] [facility] [address] [place] [address] Care Team Providers Care Lease Administrator Name Role Phone Unavailable Primary Care Provider Unavailabl e Reason for Visit * Reason Comments Med Refill Encounter Details Date Type Department Care Team (Late st Contact Info) Description 02/27/2025 Refill [facility] ADULT DENTAL [address] [place], [place] [phone] Miguel Ángel Chong DMD [address] [place], [place] [phone] Encounter for dental examination Social History Tobacco [...] Encounter - Miguel Ángel Chong DMD - 02/28/2025 1:08 PM EDT Approving, but needs appt for additional refills. documented in this encounter Plan of Treatment Not on file documented as of this encounter Visit Diagnoses Diagnosis Encounter for dental examination documented in this encounter
--- OUTSIDE RECORDS SUMMARY | 2025-05-16 17:17 | XMS_ITS | Encounter Summary ---
Author Organization [employer] Address [address] [facility] [address] [place] [address] Care Team Providers Care Roofing Sales Representative Name Role Phone Unavailable Primary Care Provider Unavailabl e Encounter Details Date Type Department Care Team (Late st Contact Info) Description 12/23/2023 Orders Only [facility] ADULT DENTAL [address] [place], [place] [phone] Alexus Haney, DDS [address] [place], [place] [phone] Social History Tobacco Use Types Packs/Day Years [...]
== END 2025-05-16 14:29 | disposition home or self-care (01) ==
LOC: HO.HPS 14:01
PROVIDERS: PCP Internal Medicine; Visit Provider Internal Medicine
DX: J44.9 Chronic obstructive pulmonary disease, unspecified (principal); J40 Bronchitis, not specified as acute or chronic; J30.9 Allergic rhinitis, unspecified
CPT/HCPCS: 99213

== ENCOUNTER 2025-05-16 14:01 | Outpatient (REF) | payer OTHER, SELFPAY ==
--- NOTE | ~2025-05-16 | XR_ITS ---
EXAMINATION: XR CHEST CLINICAL INFORMATION: J44.9 - Chronic obstructive pulmonary disease, unspecified COMPARISON: 12/21/2024. TECHNIQUE: 2 views of the chest were obtained. FINDINGS: The cardiac, hilar, and mediastinal contours are normal. The lungs are clear bilaterally. There is no pneumothorax or pleural effusion. There is no focal osseous or soft tissue abnormality. There is a mild S-shaped scoliosis of thoracic spine with associated degenerative changes. Left shoulder reverse arthroplasty noted. XR/XR chest 2V IMPRESSION: No active pulmonary disease. Electronically signed by: Toby Stubbs MD 05/16/2025 03:50 PM EDT
[2025-05-16 14:50] LABS: MANUAL DIFF FLAG NO
[2025-05-16 15:15] LABS: Hematocrit 30.5 % (37.0-47.0); Hemoglobin 9.1 g/dl (12.0-16.0); Imm Gran Abs Auto 0.07 X10*3/uL (0.00-0.03); Imm Gran Pct Auto 0.7 % (0.0-0.4); Lymphocytes Absolute Auto 1.3 X10*3/uL (1.2-4.9); Mean Corpuscular HGB Conc 29.8 g/dl (31.0-35.0); Mean Corpuscular Hemoglobin 23.4 pg (27.0-33.0); Mean Corpuscular Volume 78.4 fL (80.0-98.0); NRBC Abs Auto 0.000 X10*3/uL (0.0-0.012); NRBC Pct Auto 0.0 /100WBC (0.0-0.2); Platelet Count 334 X10*3/uL (160-400); Red Blood Count 3.89 X10*6/uL (4.20-5.50); White Blood Count 10.7 X10*3/uL (4.8-10.8)
== END 2025-05-16 14:02 | disposition home or self-care (01) ==
LOC: HO.XRAY 14:01
PROVIDERS: PCP Internal Medicine; Visit Provider Internal Medicine
DX: J44.89 Other specified chronic obstructive pulmonary disease (principal); J30.9 Allergic rhinitis, unspecified; Z79.899 Other long term (current) drug therapy
CPT/HCPCS: 36415; 71046; 85025; 85652; 86141; 99212

== ENCOUNTER → 2025-05-16 14:51 | Outpatient (BNV) | payer OTHER, SELFPAY | PROVIDERS: PCP Internal Medicine; Visit Provider Radiology Diagnostic Radiology | DX: R05.9 Cough, unspecified (principal) | CPT/HCPCS: 71046 ==

== ENCOUNTER 2025-05-23 04:49 | Emergency (ER) | payer OTHER, SELFPAY ==
[2025-05-23] VITALS (9 sets, daily range): BP systolic 114–161; BP diastolic 64–80; PULSE 65–78; RESP 16–23; TEMP 36.1–36.7; O2SAT 95–100; BMI 33.1; BMI 32.5
--- NOTE | 2025-05-23 | ECG_ITS ---
Test Reason : chest pain Blood Pressure : */* mmHG Vent. Rate : 59 BPM Atrial Rate : 59 BPM P-R Int : 170 ms QRS Dur : 94 ms QT Int : 438 ms P-R-T Axes : -2 19 29 degrees QTcB Int : 433 ms Sinus bradycardia Septal infarct , age undetermined Abnormal ECG When compared with ECG of 12-Apr-2024 10:57, Septal infarct is now Present Referred By: Generic ED Physician Electronically Signed By: CRYSTAL SOLANO
--- NOTE | ~2025-05-23 | CT_ITS ---
EXAMINATION: CT ANGIOGRAM CHEST CLINICAL INFORMATION: Chest pain. COMPARISON: February 13, 2025. TECHNIQUE: Multiple axial images were obtained through the chest after the administration of 85 mL of Omnipaque 350 intravenous contrast. Extensive vascular post-processing including two-dimensional and three-dimensional reformatted images were created and reviewed on an independent workstation. SmartPrep technique. This CT examination was performed using dose optimization techniques as appropriate, variously including the following: *Automated exposure control *Adjustment of mA and/or kV according to patient size (this includes techniques or standardized protocols for targeted exams where dose is matched to indication/reason for exam; i.e. extremities or head) *Use of iterative reconstruction technique. DLP: 295 mGy centimeter. FINDINGS: Main pulmonary artery or its main left and right branches and subsegmental pulmonary branches demonstrated normal patency without intraluminal filling defects. Poor evaluation of the thoracic aorta demonstrated no gross aneurysm or overt dissection. Calcified plaques in the coronary arteries. Pulmonary patchy groundglass, lower lung lobes and to a lesser extent upper lung lobes. 6.4 mm noncalcified pulmonary nodule anterior segment right upper lung lobe. There are less than 5 mm pulmonary nodules both lungs. No hyperinflation. No pleural effusion. No pneumothorax. No pneumomediastinum. No pericardial effusion. No calcified pleural plaques. Prominent left heart chambers. Subcentimeter mediastinal lymph nodes. The thyroid gland is not enlarged. Hiatal hernia, small to moderate volume. Sutures along the lateral wall of the stomach. Multilevel spondylosis and kyphotic deformity apex at T8. Dextroconvex curvature of the mid lower thoracic spine and levoconvex curvature at the cervical thoracic junction. Degenerative changes in the right shoulder. No acute rib fracture. CT/CT angio chest PE protocol IMPRESSION: No acute pulmonary artery emboli. Acute multifocal airspace disease with associated subcentimeter pulmonary nodules. Acute inflammatory versus granulomatous disease cannot be excluded. Concerning hypertensive cardiomyopathy. Coronary artery disease. Status post gastric sleeve. Scoliosis and multilevel spondylosis. Fleischner guidelines were followed. Electronically signed by: Adalberto Saravia MD 05/23/2025 09:42 AM EDT
--- NOTE | ~2025-05-23 | CT_ITS ---
EXAMINATION: CT ABDOMEN AND PELVIS WITH CONTRAST CLINICAL INFORMATION: Lower abdominal pain. COMPARISON: October 27, 2014. TECHNIQUE: Multidetector volumetric images were obtained from the superior aspect of the liver through the pubic symphysis following administration 85 mL of Omnipaque 350 intravenous contrast. Sagittal and coronal reformatted images were obtained on the technologist's workstation. Oral contrast: No This CT examination was performed using dose optimization techniques as appropriate, variously including the following: *Automated exposure control *Adjustment of mA and/or kV according to patient size (this includes techniques or standardized protocols for targeted exams where dose is matched to indication/reason for exam; i.e. extremities or head) *Use of iterative reconstruction technique. DLP: 635.03 mGy centimeter. FINDINGS: LUNG BASES: Pulmonary patchy groundglass. LIVER, GALLBLADDER, AND BILIARY TREE: Liver measures 15 cm. Mild prominent intrahepatic biliary ductal system. The main portal veins, and hepatic veins are patent. No gross focal mass. Gallbladder is contracted without pericholecystic fluid collection or gallbladder wall thickening. Common bile duct measures 5 mm with an abrupt pencil shaped morphology at the junction with the second portion of the duodenum. PANCREAS: Decreased enhancement pattern and attenuation with peripancreatic edema pattern. No fluid collections. No main pancreatic ductal dilatation. SPLEEN: 8 cm. No focal lesion. Punctate calcifications in the periphery of the parenchyma. ADRENAL GLANDS: No nodular lesions. KIDNEYS AND URETERS: No hydronephrosis. No gross nephrolithiasis. Subcentimeter cyst in the right kidney. Normal enhancement pattern of the renal parenchyma. lobulations. The ureter is not enlarged. BLADDER: Fluid-filled. GASTROINTESTINAL TRACT: Collapsed appearance of the transverse and left hemicolon. Scattered diverticula in the left hemicolon. Questionable intestinal wall thickening, left hemicolon and transverse colon. Appendix is normal. No pneumatosis intestinalis. No intestinal obstruction pattern. No pneumoperitoneum. No fluid collections in the peritoneal cavity. No gross ascites. Sutures along the lateral wall of the stomach. Hiatal hernia, small to moderate volume. ABDOMINAL WALL: Status post mesh placement in the periumbilical region. LYMPH NODES: No specific prominent mesenteric and retroperitoneal. VASCULAR: Mixed plaques throughout the abdominal aorta wall and iliac arteries without aneurysm or dissection. Calcified plaques in the mesenteric arteries the origin of the main renal arteries and to the femoral arteries. PELVIC VISCERA: Absent uterus versus atrophy. OSSEOUS STRUCTURES: Multilevel spondylosis resulting in grade 1 anterolisthesis L5-S1. Degenerative changes in the sacroiliac joints and both hips. A shaped curvature of the lumbar spine. Spina bifida occulta, S1. CT/CT abdomen pelvis w IV con IMPRESSION: Concerning acute pancreatitis in the correct clinical settings. Mild prominent biliary ductal system. Diverticular disease. Questionable acute colitis versus collapsed transverse and left hemicolon. Atherosclerosis disease. Status post gastric sleeve. Hiatal hernia, small to moderate volume. Please refer to the CT chest for additional findings. Fleischner guidelines were followed. Electronically signed by: Adalberto Saravia MD 05/23/2025 09:54 AM EDT
[2025-05-23 05:27] LABS: Hematocrit 32.2 % (37.0-47.0); Hemoglobin 10.0 g/dl (12.0-16.0); Imm Gran Abs Auto 0.25 X10*3/uL (0.00-0.03); Imm Gran Pct Auto 2.4 % (0.0-0.4); Lymphocytes Absolute Auto 2.5 X10*3/uL (1.2-4.9); MANUAL DIFF FLAG NO; Mean Corpuscular HGB Conc 31.1 g/dl (31.0-35.0); Mean Corpuscular Hemoglobin 23.6 pg (27.0-33.0); Mean Corpuscular Volume 75.9 fL (80.0-98.0); NRBC Abs Auto 0.000 X10*3/uL (0.0-0.012); NRBC Pct Auto 0.0 /100WBC (0.0-0.2); Platelet Count 353 X10*3/uL (160-400); Red Blood Count 4.24 X10*6/uL (4.20-5.50); White Blood Count 10.6 X10*3/uL (4.8-10.8)
[2025-05-23 05:47] LABS: Alanine Aminotransferase 7 U/L (0-31); Albumin Level 3.5 g/dL (3.5-5.0); Alkaline Phosphatase 79 U/L (39-117); Anion Gap 14 (12-20); Aspartate Amino Transferase 21 U/L (5-31); Blood Urea Nitrogen 14 mg/dL (9-16); Calcium 8.7 mg/dL (8.4-10.2); Carbon Dioxide 23 mmol/L (22-29); Chloride 106 mmol/L (96-108); Creatinine Clr Calc Pharmacy 77.9; Estimated Glomerular Filt Rate > 60; Lipase 10 U/L (8-78); Magnesium 1.8 mg/dL (1.6-2.6); Potassium 3.7 mmol/L (3.3-5.1); Sodium 139 mmol/L (135-145); Total Protein 6.3 g/dL (6.5-8.0)
[2025-05-23 06:03] LABS: IDNOW Serial# 55D5AD1C; Influenza B2 Negative (Negative)
[2025-05-23 06:04] LABS: COVID-19 Test Negative (Negative); IDNOW Serial# 58CA691E
--- NOTE | 2025-05-23 07:14 | PC.NURSE ---
accepted care of pt.Pt still vomiting and provider aware- awaiting eval and new orders. Pt VSS- O2 sat 100% but pt asking for breathing tx. Provider also aware. Pt very anxious.
[2025-05-23] MEDS: Albuterol Sulfate (0.083%) 2.5 MG/3 ML VIAL.NEB INHALE (07:50)
--- NOTE | 2025-05-23 08:02 | ED.GENADULT ---
HPI - General Adult General Chief complaint: Nausea/Vomiting/Diarrhea Stated complaint: N/V/D + ABD PAIN Time Seen by Provider: 05/23/25 07:23 Source: patient Mode of arrival: ambulatory Limitations: no limitations History of Present Illness ED Provider: Daryl Flanagan HPI narrative: 55-year-old female history of PE, asthma, COPD, pneumonia presents to ED for lower abdominal pain, diarrhea, nausea vomiting since last night. Patient has secondary complaint presently is chest pain with shortness of breath. Patient denies any fever, chills, recent antibiotics or recent hospital admission Related Data Home Medications ?Medication ?Instructions ?Recorded ?Confirmed azelastine 137 mcg (0.1 %) nasal 2 spray intranasal BID 12/26/21 05/16/25 spray calcium citrate 1 tab PO DAILY 12/26/21 05/16/25 cholecalciferol (vitamin D3) 25 1 tab PO DAILY 12/26/21 05/16/25 mcg (1,000 unit) tablet fluticasone propionate 230 1 puff inhalation BID 12/26/21 05/16/25 mcg-salmeterol 21 mcg/actuation HFA inhaler (Advair HFA) hydroxyzine HCl 25 mg tablet 1 tab PO Q8H PRN itch 12/26/21 05/16/25 ketotifen fumarate 0.025 % (0.035 1 drp ophthalmic (eye) BID PRN itch 12/26/21 05/16/25 %) eye drops loratadine 10 mg tablet 1 tab PO DAILY 12/26/21 05/16/25 montelukast 10 mg tablet 1 tab PO BEDTIME 12/26/21 05/16/25 omeprazole 40 mg capsule,delayed 1 cap PO DAILY@0630 12/26/21 05/16/25 release tiotropium bromide 1.25 2 puff PO DAILY 12/26/21 05/16/25 mcg/actuation mist for inhalation (Spiriva Respimat) folic acid 1 mg tablet 1 mg PO DAILY 07/24/22 05/16/25 ibuprofen 800 mg tablet 800 mg PO TID PRN 05/06/23 05/16/25 bupropion HCl 300 mg 24 hr tablet, 300 mg PO DAILY 12/22/23 05/16/25 extended release naltrexone 50 mg tablet 50 mg PO DAILY 12/22/23 05/16/25 Previous Rx's ?Medication ?Instructions ?Recorded guaifenesin 1,200 mg tablet, 1,200 mg PO BID #10 tabs 06/03/23 extended release 12 hr (Mucus Relief ER) benzonatate 100 mg capsule 100 mg PO BID PRN cough #14 caps 03/15/24 albuterol sulfate 90 mcg/actuation 2 inh inhalation Q6H PRN shortness 04/12/24 breath activated powder inhaler of breath or wheezing #1 ea guaifenesin 200 mg/5 mL oral liquid 200 mg (5 mL) PO Q4H PRN cough 04/12/24 #118 mL ipratropium 20 mcg-albuterol 100 1 puff inhalation QID COPD 30 days 11/14/24 mcg/actuation mist for inhalation #4 grams (Combivent Respimat) ipratropium bromide 0.02 % 2.5 ml inhalation QID PRN for 12/20/24 solution for inhalation wheezing #125 mL doxycycline hyclate 100 mg tablet 100 mg PO BID BRONCHITIS 7 days 05/17/25 #14 tabs prednisone 20 mg tablet 20 mg PO BID COPD EXCERBATION 5 05/17/25 days #10 tabs Allergies Allergy/AdvReac Type Severity Reaction Status Date / Time latex (Latex) Allergy Mild UNKNOWN Verified 05/23/25 04:59 cats, pollen, mold Allergy Unknown Unknown Uncoded 05/23/25 04:59 Latex Allergy Unknown Unknown Uncoded 05/23/25 04:59 Review of Systems Review of Systems: Abdominal pain diarrhea, vomiting now chest Yes all other systems are reviewed and are negative PMFSH Past Medical History Medical History Allergic alveolitis Bronchitis SPARKLE (obstructive sleep apnea) Allergic rhinitis Asthma Pulmonary embolism Pulmonary cavitary lesion COPD (chronic obstructive pulmonary disease) Pulmonary cavitary lesion Asthma Surgical History H/O gastric sleeve History of partial hysterectomy History of surgery on wrist History of ankle surgery History of knee replacement Family History Family History Father Prostate cancer Social History Social History Household Members: Spouse and Family Caregiver staying overnight: No Housing: House Are you a primary home health care case manager to a significant other at home: Yes (mother) Do you presently have visiting nurse or other home services: Yes Alcohol intake: never Patient Tobacco Use Status: Never used Tobacco Advance Directives Date on File: 12/26/21 service: No Current occupational status: disabled Physical Exam ED Vital Signs: Vital Signs - 24 hr 05/23/25 04:56 05/23/25 06:00 05/23/25 07:15 Temperature 96.9 F 97.1 F Pulse Rate 67 65 65 Respiratory Rate 22 H 18 23 H Blood Pressure 161/80 H 154/78 H Pulse Oximetry 100 100 100 Oxygen Delivery Method Room Air Room Air Room Air 05/23/25 07:52 05/23/25 09:36 05/23/25 10:15 Temperature 97.8 F Pulse Rate 70 68 70 Respiratory Rate 18 18 18 Blood Pressure 152/80 H 148/78 H Pulse Oximetry 95 95 Oxygen Delivery Method Room Air Room Air 05/23/25 12:00 05/23/25 13:50 05/23/25 15:47 Temperature 98.0 F 98.1 F 98.1 F Pulse Rate 78 70 70 Respiratory Rate 16 22 H 22 H Blood Pressure 114/64 128/76 128/76 Pulse Oximetry 98 96 96 Oxygen Delivery Method Room Air Room Air Room Air BMI result Body Mass Index 32.5 Const General: cooperative, healthy appearing, comfortable, no acute distress, well developed, alert, awake and Physically active Orientation/consciousness: patient oriented x3 HENMT Head: Yes normal to inspection, Yes No palpable skull fracture present, Yes normocephalic and Yes atraumatic Eyes General: appearance normal, both eyes and all related structures Neck Neck: Yes normal visual inspection, Yes full ROM, Yes no lymphadenopathy, Yes no meningeal signs, Yes trachea midline, Yes supple, No anterior neck swelling and No tender Chest Chest palpation & inspection: normal inspection of the chest and normal palpation of entire chest wall Resp Effort & Inspection: normal respiratory effort and able to speak in complete sentences Auscultation: clear to auscultation bilaterally Cardio Jugular venous distension: no JVD Heart sounds: S1 normal heart sound present and S2 normal heart sound present GI Inspection: Yes normal to inspection Palpation (GI): Soft to palpation, not firm, Tenderness to palpation present (GI) in the LLQ and in the RLQ, no guarding and not rigid General: Yes no CVA tenderness Back/Spine/Pelvis Back: no CVA tenderness and No back tenderness Skin General skin exam: no rashes or lesions noted, elasticity normal and turgor normal Neuro General: patient oriented x3, gait normal, tone normal, moves all extremities, Normal light touch and pain sensation, no meningeal signs, no focal motor deficits, CN's II-XI intact bilaterally and normal sensation to monofilament Extrem General: Yes normal to inspection, Yes full ROM and Yes capillary refill normal Psych Appearance: grossly normal, well kempt and not disheveled Medications Administered Discontinued Medications Generic Name Dose Route Start Last Admin Trade Name Freq PRN Reason Stop Dose Admin Albuterol Sulfate 2.5 mg 05/23/25 07:48 05/23/25 07:50 Albuterol Sulfate (0.083%) 2.5 Mg/3 Ml Vial.Neb INHALE 05/23/25 07:49 2.5 mg ONCE ONE Administration Aspirin 325 mg 05/23/25 14:46 05/23/25 15:08 Aspirin Enteric Coated 325 Mg Tablet. PO 05/23/25 14:47 325 mg ONCE ONE Administration Diphenhydramine HCl 50 mg 05/23/25 07:34 05/23/25 08:07 Diphenhydramine Hcl 50 Mg/Ml Vial IVPUSH 05/23/25 07:35 50 mg ONCE ONE Administration Haloperidol Lactate 5 mg 05/23/25 07:34 05/23/25 08:09 Haloperidol Lactate 5 Mg/Ml Vial IM 05/23/25 07:35 5 mg STAT STA Administration Heparin Sodium (Porcine) 4,000 unit 05/23/25 12:51 05/23/25 13:24 Heparin Sodium,Porcine 5,000 Unit/Ml Vial IVPUSH 05/23/25 12:52 4,000 unit ONCE ONE Administration Heparin Sodium/Sodium Chloride 25,000 unit in 250 mls @ 0 mls/hr 05/23/25 13:00 05/23/25 13:25 Heparin Sodium,Porcine/1/2ns IVCONT 12 units/kg/hr .Q0M GIUSEPPE 9.37 mls/hr Protocol Administration Per Protocol Iohexol 100 ml 05/23/25 08:51 05/23/25 08:51 Iohexol 350 Mg/Ml 100 Ml Infus..Btl IV 05/23/25 08:52 85 ml ONCE ONE Administration Ondansetron HCl 4 mg 05/23/25 05:35 05/23/25 05:40 Ondansetron Hcl 4 Mg/2 Ml Vial IVPUSH 05/23/25 05:36 4 mg ONCE ONE Administration Ondansetron HCl 4 mg 05/23/25 07:34 05/23/25 08:13 Ondansetron Hcl 4 Mg/2 Ml Vial IVPUSH 05/23/25 07:35 4 mg ONCE ONE Administration Medical Decision Making Medical Decision Making MDM Narrative: 55-year-old female presents to the ED with lower abdominal pain with diarrhea, vomiting since last night. Patient denies any new antibiotics, hospital admission no recent travel. Pain now is having chest pain and the shortness of breath. Positive for lower abdominal tenderness on palpation. Labs were ordered Zofran given. Another round of Zofran with Benadryl and Haldol ordered. Abdominal CT scan ordered. UTI history of PE and chest pain although not hypoxic was sent for chest AAA rule out PE. 10:51pm: Patient's 1st troponin came back positive. Patient's chest CTA came back negative for PE but does show possible multiple focal area disease which can be due to guarding [employer] versus airspace disease. Patient denies any URI symptoms. Abdominal CT scan she states acute pancreatitis in the right setting although patient has no elevated lipase or liver enzymes. Patient feeling better. Cat scan also shows colitis. We will do p.o. challenge. Patient denies any history of pancreatitis. 12:39pm: Patient's 2nd troponin increased to 797 from 31. Patient is presently asymptomatic has no chest pain or shortness of breath. Repeat EKG shows no new changes. Consulting Dr. Pandya of Cardiology. Waiting for recommendations. Patient passed p.o. challenge. Patient ate in crackers and drank soda. Clinically physical exam does not indicate pancreatitis. 3:27pm: Case was accepted by Dr. Bazan of [facility] cardiology for admission to [facility] but there were no beds available tonight and there are multiple transfers and head of patient to be brought to [facility]. Most likely patient will not come over to [facility] until tomorrow. Spoke with covering tools developer Dr. Pandya who recommended [facility] be contacted for transfer. Case accepted by Dr. Alarcon of [facility] emergency room. Case was discussed with cardiology HARJINDER Alexander who also accepted the case. Patient is agreeable with plan. Differential Diagnosis Differential Diagnoses: The differential diagnosis associated with the presentation includes (NSTEMI, pancreatitis, cholecystitis.) Admission/Observation Consideration of admission/observation: Escalation of care including admission/observation considered Consult Healthcare Provider Management of the patient was discussed with: Gunite Nozzle Operator ([facility] Cardiology Dr. Pandya, Dr. Banks [facility], Dr. Grady brooker Cardiology, HARJINDER Alexander brooker Cardiology. ) Lab Data MDM Lab Attestation statement: I reviewed the patient's lab results. 05/23/25 13:15 05/23/25 05:23 Labs: Lab Results 05/23/25 05/23/25 05/23/25 Range/Units 05:23 05:30 11:51 WBC 10.6 (4.8-10.8) X10*3/uL RBC 4.24 (4.20-5.50) X10*6/uL Hgb 10.0 L (12.0-16.0) g/dl Hct 32.2 L (37.0-47.0) % MCV 75.9 L (80.0-98.0) fL MCH 23.6 L (27.0-33.0) pg MCHC 31.1 (31.0-35.0) g/dl RDW 17.2 H (11.0-16.0) % Plt Count 353 (160-400) X10*3/uL MPV 9.3 L (9.4-12.3) fL Immature Gran % (Auto) 2.4 H (0.0-0.4) % Neut % (Auto) 65.2 (45-73) % Lymph % (Auto) 23.6 (20-40) % [place] % (Auto) 6.6 (2-11) % Eos % (Auto) 1.8 (0-4) % Baso % (Auto) 0.4 (0-2) % Lymph # (Auto) 2.5 (1.2-4.9) X10*3/uL [place] # (Auto) 0.7 (0.1-1.2) X10*3/uL Eos # (Auto) 0.2 (0.0-0.4) X10*3/uL Baso # (Auto) 0.0 (0.0-0.2) X10*3/uL Abs Immat Gran (auto) 0.25 H (0.00-0.03) X10*3/uL Absolute Neuts (auto) 6.9 (2.0-8.3) x10*3/uL Absolute Nucleated RBC 0.000 (0.0-0.012) X10*3/uL Nucleated RBC % (auto) 0.0 (0.0-0.2) /100WBC PT (10.9-12.4) SEC INR (0.9-1.1) APTT (26.7-34.1) SEC Sodium 139 (135-145) mmol/L Potassium 3.7 (3.3-5.1) mmol/L Chloride 106 (96-108) mmol/L Carbon Dioxide 23 (22-29) mmol/L Anion Gap 14 (12-20) BUN 14 (9-16) mg/dL Creatinine 0.76 (0.5-1.4) mg/dL Estim Creat Clear Calc 77.9 Estimated GFR > 60 Random Glucose 160 H (60-115) mg/dL Calcium 8.7 (8.4-10.2) mg/dL Magnesium 1.8 (1.6-2.6) mg/dL Total Bilirubin 0.3 (0.0-1.0) mg/dL AST 21 (5-31) U/L ALT 7 (0-31) U/L Alkaline Phosphatase 79 (39-117) U/L Troponin I High Sens 31.5 H D 797.7 H* D (<3.5-17.0) ng/L NT-Pro-B Natriuret Pep 347.8 H (<300) pg/mL Total Protein 6.3 L (6.5-8.0) g/dL Albumin 3.5 (3.5-5.0) g/dL Lipase 10 (8-78) U/L Beta HCG, Quant 3 mIU/mL COVID-19 (NEIL) Negative (Negative) COVID-19 Clin Com See Note Influenza Type A (MELISSA) Negative (Negative) Influenza Type B (MELISSA) Negative (Negative) Influenza A & B Note See Note 05/23/25 Range/Units 13:15 WBC 11.4 H (4.8-10.8) X10*3/uL RBC 4.22 (4.20-5.50) X10*6/uL Hgb 9.9 L (12.0-16.0) g/dl Hct 32.8 L (37.0-47.0) % MCV 77.7 L (80.0-98.0) fL MCH 23.5 L (27.0-33.0) pg MCHC 30.2 L (31.0-35.0) g/dl RDW 17.2 H (11.0-16.0) % Plt Count 313 (160-400) X10*3/uL MPV 9.8 (9.4-12.3) fL Immature Gran % (Auto) (0.0-0.4) % Neut % (Auto) (45-73) % Lymph % (Auto) (20-40) % [place] % (Auto) (2-11) % Eos % (Auto) (0-4) % Baso % (Auto) (0-2) % Lymph # (Auto) (1.2-4.9) X10*3/uL [place] # (Auto) (0.1-1.2) X10*3/uL Eos # (Auto) (0.0-0.4) X10*3/uL Baso # (Auto) (0.0-0.2) X10*3/uL Abs Immat Gran (auto) (0.00-0.03) X10*3/uL Absolute Neuts (auto) (2.0-8.3) x10*3/uL Absolute Nucleated RBC 0.000 (0.0-0.012) X10*3/uL Nucleated RBC % (auto) 0.0 (0.0-0.2) /100WBC PT 11.9 (10.9-12.4) SEC INR 1.0 (0.9-1.1) APTT 28.5 (26.7-34.1) SEC Sodium (135-145) mmol/L Potassium (3.3-5.1) mmol/L Chloride (96-108) mmol/L Carbon Dioxide (22-29) mmol/L Anion Gap (12-20) BUN (9-16) mg/dL Creatinine (0.5-1.4) mg/dL Estim Creat Clear Calc Estimated GFR Random Glucose (60-115) mg/dL Calcium (8.4-10.2) mg/dL Magnesium (1.6-2.6) mg/dL Total Bilirubin (0.0-1.0) mg/dL AST (5-31) U/L ALT (0-31) U/L Alkaline Phosphatase (39-117) U/L Troponin I High Sens (<3.5-17.0) ng/L NT-Pro-B Natriuret Pep (<300) pg/mL Total Protein (6.5-8.0) g/dL Albumin (3.5-5.0) g/dL Lipase (8-78) U/L Beta HCG, Quant mIU/mL COVID-19 (NEIL) (Negative) COVID-19 Clin Com Influenza Type A (MELISSA) (Negative) Influenza Type B (MELISSA) (Negative) Influenza A & B Note Independent Interpretation I performed an independent interpretation of an: Ultrasound and CT Scan Interpretation: [address] [address] [address] Scan Report Signed Patient: Codie Fernández MR#: [id number] : 1970 Acct:[id number] Age/Sex: 55 / F ADM Date: 05/23/25 Loc: .ED Attending Dr: Ordering Physician: Daryl Flanagan Date of Service: 05/23/25 Procedure(s): CT angio chest PE protocol Accession Number(s): [id number] cc: Daryl Flanagan; Gt Prescott III, MD~ Report Number: [id number]: Total DLP = 0.00 mGy-cm Reason for Exam: Chest pain EXAMINATION: CT ANGIOGRAM CHEST CLINICAL INFORMATION: Chest pain. COMPARISON: February 13, 2025. TECHNIQUE: Multiple axial images were obtained through the chest after the administration of 85 mL of Omnipaque 350 intravenous contrast. Extensive vascular post-processing including two-dimensional and three-dimensional reformatted images were created and reviewed on an independent workstation. SmartPrep technique. This CT examination was performed using dose optimization techniques as appropriate, variously including the following: *Automated exposure control *Adjustment of mA and/or kV according to patient size (this includes techniques or standardized protocols for targeted exams where dose is matched to indication/reason for exam; i.e. extremities or head) *Use of iterative reconstruction technique. DLP: 295 mGy centimeter. FINDINGS: Main pulmonary artery or its main left and right branches and subsegmental pulmonary branches demonstrated normal patency without intraluminal filling defects. Poor evaluation of the thoracic aorta demonstrated no gross aneurysm or overt dissection. Calcified plaques in the coronary arteries. Pulmonary patchy groundglass, lower lung lobes and to a lesser extent upper lung lobes. 6.4 mm noncalcified pulmonary nodule anterior segment right upper lung lobe. There are less than 5 mm pulmonary nodules both lungs. No hyperinflation. No pleural effusion. No pneumothorax. No pneumomediastinum. No pericardial effusion. No calcified pleural plaques. Prominent left heart chambers. Subcentimeter mediastinal lymph nodes. The thyroid gland is not enlarged. Hiatal hernia, small to moderate volume. Sutures along the lateral wall of the stomach. Multilevel spondylosis and kyphotic deformity apex at T8. Dextroconvex curvature of the mid lower thoracic spine and levoconvex curvature at the cervical thoracic junction. Degenerative changes in the right shoulder. No acute rib fracture. CT/CT angio chest PE protocol IMPRESSION: No acute pulmonary artery emboli. Acute multifocal airspace disease with associated subcentimeter pulmonary nodules. Acute inflammatory versus granulomatous disease cannot be excluded. Concerning hypertensive cardiomyopathy. Coronary artery disease. Status post gastric sleeve. Scoliosis and multilevel spondylosis. Fleischner guidelines were followed. Electronically signed by: Adalberto Saravia MD 05/23/2025 09:42 AM EDT Dictated By: Adalberto Manrique MD Signed By: <Electronically signed by Adalberto Silverio MD in OV> 05/23/2542 DD/ 5 TD/TT: 05/23/25930 Shelter Case Manager: [address] [address] [address] Scan Report Signed Patient: Codie Fernández MR#: [id number] : 1970 Acct:[id number] Age/Sex: 55 / F ADM Date: 05/23/25 Loc: HO.ED Attending Dr: Ordering Physician: Daryl Flanagan Date of Service: 05/23/25 Procedure(s): CT abdomen pelvis w IV con Accession Number(s): [id number] cc: Daryl Flanagan; Gt Prescott III, MD~ Report Number: [id number]: Total DLP = 951.00 mGy-cm Reason for Exam: lower abdominal pain, diarrhea EXAMINATION: CT ABDOMEN AND PELVIS WITH CONTRAST CLINICAL INFORMATION: Lower abdominal pain. COMPARISON: October 27, 2014. TECHNIQUE: Multidetector volumetric images were obtained from the superior aspect of the liver through the pubic symphysis following administration 85 mL of Omnipaque 350 intravenous contrast. Sagittal and coronal reformatted images were obtained on the technologist's workstation. Oral contrast: No This CT examination was performed using dose optimization techniques as appropriate, variously including the following: *Automated exposure control *Adjustment of mA and/or kV according to patient size (this includes techniques or standardized protocols for targeted exams where dose is matched to indication/reason for exam; i.e. extremities or head) *Use of iterative reconstruction technique. DLP: 635.03 mGy centimeter. FINDINGS: LUNG BASES: Pulmonary patchy groundglass. LIVER, GALLBLADDER, AND BILIARY TREE: Liver measures 15 cm. Mild prominent intrahepatic biliary ductal system. The main portal veins, and hepatic veins are patent. No gross focal mass. Gallbladder is contracted without pericholecystic fluid collection or gallbladder wall thickening. Common bile duct measures 5 mm with an abrupt pencil shaped morphology at the junction with the second portion of the duodenum. PANCREAS: Decreased enhancement pattern and attenuation with peripancreatic edema pattern. No fluid collections. No main pancreatic ductal dilatation. SPLEEN: 8 cm. No focal lesion. Punctate calcifications in the periphery of the parenchyma. ADRENAL GLANDS: No nodular lesions. KIDNEYS AND URETERS: No hydronephrosis. No gross nephrolithiasis. Subcentimeter cyst in the right kidney. Normal enhancement pattern of the renal parenchyma. lobulations. The ureter is not enlarged. BLADDER: Fluid-filled. GASTROINTESTINAL TRACT: Collapsed appearance of the transverse and left hemicolon. Scattered diverticula in the left hemicolon. Questionable intestinal wall thickening, left hemicolon and transverse colon. Appendix is normal. No pneumatosis intestinalis. No intestinal obstruction pattern. No pneumoperitoneum. No fluid collections in the peritoneal cavity. No gross ascites. Sutures along the lateral wall of the stomach. Hiatal hernia, small to moderate volume. ABDOMINAL WALL: Status post mesh placement in the periumbilical region. LYMPH NODES: No specific prominent mesenteric and retroperitoneal. VASCULAR: Mixed plaques throughout the abdominal aorta wall and iliac arteries without aneurysm or dissection. Calcified plaques in the mesenteric arteries the origin of the main renal arteries and to the femoral arteries. PELVIC VISCERA: Absent uterus versus atrophy. OSSEOUS STRUCTURES: Multilevel spondylosis resulting in grade 1 anterolisthesis L5-S1. Degenerative changes in the sacroiliac joints and both hips. A shaped curvature of the lumbar spine. Spina bifida occulta, S1. CT/CT abdomen pelvis w IV con IMPRESSION: Concerning acute pancreatitis in the correct clinical settings. Mild prominent biliary ductal system. Diverticular disease. Questionable acute colitis versus collapsed transverse and left hemicolon. Atherosclerosis disease. Status post gastric sleeve. Hiatal hernia, small to moderate volume. Please refer to the CT chest for additional findings. Fleischner guidelines were followed. Electronically signed by: Adalberto Saravia MD 05/23/2025 09:54 AM EDT RP Radiology Impression Discussion of test interpretation with radiology: I have reviewed the radiologist's reading. Independent Historian Clinical information obtained from an independent historian. History obtained from or confirmed by: Other (patient) Critical Care Time Critical Care Time Critical Care Time: Yes Total Critical Care Time: 60 Attestation: 55 yold female positive forSTEMI. Ceramic Design Engineer Mumtaz was consulted who recommended Heparin Drip, ASA, and echo. Patient started on heparin drip and given aspirin. patient transferred to [facility]. Discharge Plan Discharge Clinical Impression: Non-ST elevation LA (NSTEMI) Patient Disposition: Xfer Acute [facility] Transfer Details: [facility] Prescriptions: No Action Combivent Respimat 20-100 mcg/actuation mist 1 puff inhalation QID 30 Days Qty: 4 4RF ipratropium bromide 0.02 % solution 2.5 ml inhalation QID PRN (Reason: for wheezing) Qty: 125 3RF prednisone 20 mg tablet 20 mg PO BID 5 Days Qty: 10 0RF doxycycline hyclate 100 mg tablet 100 mg PO BID 7 Days Qty: 14 0RF ketotifen fumarate 0.025 % (0.035 %) drops 1 drp ophthalmic (eye) BID PRN (Reason: itch) omeprazole 40 mg capsule,delayed release(DR/EC) 1 cap PO DAILY@0630 montelukast 10 mg tablet 1 tab PO BEDTIME hydroxyzine HCl 25 mg tablet 1 tab PO Q8H PRN (Reason: itch) azelastine 137 mcg (0.1 %) aerosol,spray 2 spray intranasal BID loratadine 10 mg tablet 1 tab PO DAILY calcium citrate 200 mg (950 mg) tablet 1 tab PO DAILY Advair HFA 230-21 mcg/actuation HFA aerosol inhaler 1 puff inhalation BID cholecalciferol (vitamin D3) 25 mcg (1,000 unit) tablet 1 tab PO DAILY Spiriva Respimat 1.25 mcg/actuation mist 2 puff PO DAILY guaifenesin [Mucus Relief ER] 1,200 mg tablet extended release 12hr 1,200 mg PO BID Qty: 10 0RF benzonatate 100 mg capsule 100 mg PO BID PRN (Reason: cough) Qty: 14 0RF albuterol sulfate 90 mcg/actuation aerosol powdr breath activated 2 inh inhalation Q6H PRN (Reason: shortness of breath or wheezing) Qty: 1 0RF guaifenesin 200 mg/5 mL liquid 200 mg PO Q4H PRN (Reason: cough) Qty: 118 0RF folic acid 1 mg tablet 1 mg PO DAILY ibuprofen 800 mg tablet 800 mg PO TID PRN bupropion HCl 300 mg tablet extended release 24 hr 300 mg PO DAILY naltrexone 50 mg tablet 50 mg PO DAILY Interventions: Acute Care Transfer Worksheet (ED) Last Done: 05/23/25 15:47 Discharge Date/Time: 05/23/25 16:15 Print Language: Malay
[2025-05-23] MEDS: iohexoL 350 MG/ML 100 ML INFUS..BTL IV (08:51)
--- NOTE | 2025-05-23 09:24 | PC.NURSE ---
Pt calm and resting with eyes closed- no longer vomiting nor C/O SOB.
--- NOTE | 2025-05-23 10:16 | PC.NURSE ---
Lab called to clarify why Troponin has not resulted yet- It was seen but never added so They are adding it on now.
[2025-05-23 10:35] LABS: Troponin-I High Sensitivity 31.5 ng/L (<3.5-17.0)
[2025-05-23 12:20] LABS: Troponin-I High Sensitivity 797.7 ng/L (<3.5-17.0)
--- NOTE | 2025-05-23 12:20 | ECG_ITS ---
Test Reason : REPEAT EKG Blood Pressure : */* mmHG Vent. Rate : 68 BPM Atrial Rate : 68 BPM P-R Int : 172 ms QRS Dur : 84 ms QT Int : 450 ms P-R-T Axes : 36 24 27 degrees QTcB Int : 478 ms Normal sinus rhythm Septal infarct (cited on or before 23-May-2025) Abnormal ECG When compared with ECG of 23-May-2025 05:08, No significant change was found Referred By: Daryl Flanagan Electronically Signed By: CRYSTAL SOLANO
--- NOTE | 2025-05-23 12:45 | CA_ITS ---
Transthoracic Echocardiogram Patient (Last, First, Middle): Codie Fernández, Gender: F Date of : 1970 Age: 55 Procedure Date: 05/23/2025 Procedure Type: Transthoracic Echocardiogram Location: ER Height: 154.94 cm Weight: 79.38 kg BSA: 1.78 m2 Heart Rate: bpm BP: 119 / 65 mmHg [employer]: Referring MD: Daryl GRANDE Symptoms: positive troponin. Abnormal wall abnormalities Study Quality: Adequate ECG Rhythm: Sinus Conclusions: - The left ventricular systolic function is moderately decreased. The calculated ejection fraction is 35% by biplane method. - The anteroseptal wall, the apex, and apical lateral segments are akinetic. - No obvious valvular pathology seen on this study. Findings Procedure Information Contrast agent, definity, is being given per protocol without apparent complications. Left Ventricle Normal left ventricular cavity size. There is mildly increased left ventricular wall thickness. The left ventricular systolic function is moderately decreased. The calculated ejection fraction is 35% by biplane method. There is evidence of regional wall motion abnormalities. Diastolic function is normal for age. Wall Motion Rest Echo Findings The anteroseptal wall, the apex, and apical lateral segments are akinetic. Atria Both atria are normal in size. Aortic Valve There is a normal trileaflet aortic valve. There is no aortic valve stenosis. There is no aortic valve regurgitation. Mitral Valve The mitral valve appears normal. There is no mitral valve regurgitation. There is no mitral valve stenosis. Pulmonic Valve The pulmonic valve is likely normal. There is trace pulmonic valve regurgitation. Tricuspid Valve Normal tricuspid valve structure. There is trace tricuspid valve regurgitation. There is no evidence of pulmonary hypertension. Great Vessels The asc aorta is normal in size. Venous The inferior vena cava is normal in size and collapses greater than 50% with inspiration. Pericardium/Pleural There is no evidence of pericardial effusion. Prior Study Comparison Changes noted compared to prior study dated: 01/06/2022. LVEF reduced; new wall motion abnormalities. Recommendations, Care & Conclusions No obvious valvular pathology seen on this study. Measurements 2D Linear Measurements IVSd: 1.04 0.6-0.9/0.6-1.0 cm LVIDd: 4.48 3.9-5.3/4.2-5.9 cm LVIDd Index: 2.52 2.4-3.2/2.2-3.1 cm/m2 LVIDs: 3.35 2.0-3.6 cm LVPWd: 1.08 0.7-1.1 cm Ao Root: 3.10 2.1-3.5 cm LA Diam: 3.60 2.7-3.8/3.0-4.0 cm LAIDs Index: 2.02 1.5-2.3 cm/m2 LV Mass: 205.48 67-162/88-224 g LV Mass Index: 115.44 43-95/49-115 g/m2 LVOT Diam: 2.50 3.0+(-)1.3 cm 2D Systolic Function EF 4C: 37.70 >55% EF 2C: 31.10 >55% EF BiP: 35.40 >55% Mitral Valve MV Pk E: 0.66 MV PK A: 0.78 MV Decel Time: 149.00 E/A: 0.80 E'Lateral: 5.87 E'Medial: 5.33 E/E' Med: 12.40 E/E' Lat: 11.30 PHT: 44.00 MVA PHT: 5.00 Decel Williamson: 4.43 Aortic Valve AoV Pk Santo: 1.42 AoV Mn Santo: 0.93 AoV VTI: 0.33 AoV Pk Grad: 8.00 Aov Mn Grad: 4.00 MINNIE Cont.VTI: 4.22 LVOT LVOT Pk Santo: 1.16 LVOT Mn Santo: 0.81 LVOT VTI: 0.28 LVOT Pk Grad: 5.00 LVOT Mn Grad: 3.00 LVOT Diam: 2.50 LVOT Area: 4.91 Diastolic Function MV Pk E: 0.66 MV Pk A: 0.78 E/A: 0.80 E'Medial: 5.33 E/E' Med: 12.40 E' Laterial: 5.87 E/E' Lat: 11.30 Right Ventricle TAPSE (mm): 27.00 TVS' Santo: 16.00 Tricuspid Valve TR Pk Santo: 2.36 TR Pk Grad: 22.00 RA Press: 3.00 RVSP: 25.00 Great Vessels Aorta Ao Root-2D: 3.10 2.0-3.7 cm Ao Asc: 3.10 2.1-3.4 cm Pulmonary Valve PV Pk Santo: 1.05 Peak PV Grad: 4.00 Updated in Other Vendor System with Status of Final Giovanny Pandya MD electronically signed on 05/23/2025 2:18:41 PM with status of Final
[2025-05-23 13:22] LABS: Hematocrit 32.8 % (37.0-47.0); Hemoglobin 9.9 g/dl (12.0-16.0); Mean Corpuscular HGB Conc 30.2 g/dl (31.0-35.0); Mean Corpuscular Hemoglobin 23.5 pg (27.0-33.0); Mean Corpuscular Volume 77.7 fL (80.0-98.0); NRBC Abs Auto 0.000 X10*3/uL (0.0-0.012); NRBC Pct Auto 0.0 /100WBC (0.0-0.2); Platelet Count 313 X10*3/uL (160-400); Red Blood Count 4.22 X10*6/uL (4.20-5.50); White Blood Count 11.4 X10*3/uL (4.8-10.8)
[2025-05-23] MEDS: Heparin Sodium,Porcine/1/2NS 25,000 UNIT/250 ML IV.SOLN 9.37 UNIT IVCONT (13:25)
[2025-05-23 13:26] LABS: INTERNATIONAL NORM RATIO 1.0 (0.9-1.1); Prothrombin Time 11.9 SEC (10.9-12.4)
--- NOTE | 2025-05-23 13:45 | PC.NURSE ---
Troponin level drawn at 11:51AM, elevated result 797.7. Heparin drip ordered & initiated at 12 units/kg/hr via pump, witnessed by Nicole Cervantes RN at bedside. Infusing via 20g IV in left AC. ECHO performed at bedside, report/review pending.
[2025-05-23 13:50] LABS: Partial Thromboplastin Time 28.5 SEC (26.7-34.1)
[2025-05-23] MEDS: Aspirin Enteric Coated 325 MG TABLET.DR PO (15:08)
--- NOTE | 2025-05-23 15:16 | PC.NURSE ---
Accepted by [facility] ER, accepting MD: Dr. Grady.
[2025-05-23 15:22] LABS: NT Pro B Type Natriuretic Pept 347.8 pg/mL (<300)
--- NOTE | 2025-05-23 16:15 | PC.NURSE ---
[facility] at bedside. Transporting patient to [facility] ED. Heparin drip continues infusing at 12 units/kg/hr, as ordered, initiated at 13:25.
== END 2025-05-23 16:15 | disposition short-term general hospital (02) ==
PROVIDERS: Physician Assistant; Emergency Provider Emergency Medicine; PCP Internal Medicine
DX: I21.4 Non-ST elevation (NSTEMI) myocardial infarction (principal); R11.2 Nausea with vomiting, unspecified; R19.7 Diarrhea, unspecified; R10.30 Lower abdominal pain, unspecified; K44.9 Diaphragmatic hernia without obstruction or gangrene; R07.9 Chest pain, unspecified; R94.31 Abnormal electrocardiogram [ECG] [EKG]; J44.9 Chronic obstructive pulmonary disease, unspecified; Z03.818 Encounter for observation for suspected exposure to other biological agents ruled out
CPT/HCPCS: 36415; 71275; 74177; 80053; 83690; 83735; 83880; 84484; 84702; 85025; 85027; 85610; 85730; 87502; 87635; 93005; 93306; 94640; 96365; 96366; 96372; 96375; 96376; 99285; J1200; J1630; J1644; J2405; Q9957; Q9967

== ENCOUNTER → 2025-05-23 07:41 | Outpatient (BNV) | payer OTHER, SELFPAY | PROVIDERS: Emergency Provider Emergency Medicine; PCP Internal Medicine; Visit Provider Radiology Diagnostic Radiology | DX: K57.90 Diverticulosis of intestine, part unspecified, without perforation or abscess without bleeding (principal); K44.9 Diaphragmatic hernia without obstruction or gangrene; R91.8 Other nonspecific abnormal finding of lung field; I25.10 Atherosclerotic heart disease of native coronary artery without angina pectoris; M47.814 Spondylosis without myelopathy or radiculopathy, thoracic region; M41.84 Other forms of scoliosis, thoracic region | CPT/HCPCS: 71275; 74177 ==

== ENCOUNTER → 2025-05-23 12:45 | Outpatient (BNV) | payer OTHER, SELFPAY | PROVIDERS: Emergency Provider Emergency Medicine; PCP Internal Medicine; Visit Provider Internal Medicine | DX: I51.89 Other ill-defined heart diseases (principal); R00.1 Bradycardia, unspecified; I25.2 Old myocardial infarction | CPT/HCPCS: 93010; 93306 ==

== ENCOUNTER 2025-05-29 04:07 | Inpatient (IN) | payer OTHER, SELFPAY ==
--- OUTSIDE RECORDS SUMMARY | 2024-06-24 14:30 | XMS_ITS | Encounter Summary ---
Author Organization [facility] Address [address] [place] [address] Care Team Providers Care Sliver Former Name Role Phone Gt Prescott MD Primary Care Provider [phone] Encounter Details Date Type Department Care Team (Late st Contact Info) Description 06/24/2024 2:30 PM EDT Hospital Encounter TH HISTORIC ENCOUNTERS EASTERN CONVERSION ONLY Manny Leos MD [address] [place] [phone] Social History Tobacco Use Types Packs/Day Years [...] Record ed Within the last 3 months, ho w many times did you visit the [...] care for your loved ones. For example, child and adolescent psychologist or elderly care for an older adult? [...] Care Team (Late st Contact Info) Description 06/02/2025 9:00 AM EDT Office Visit Orthopedic Surgery - [place] [address] [facility] 160 [place] [phone] Leena Obrien, PA 175 [facility] 160 [place] [address] 06/07/2025 8:00 AM EDT Treatment [facility] [place] 175 [facility] [address] [place] [address] Clare Mukherjee, PT 07/25/2025 8:15 AM EST Office Visit Bariatric Surgery - [place] [facility] [address] [place] [address] Mitch Mckinney MD [address] [place] [phone] 07/28/2025 9:45 AM EST Office Visit Adult [address] [phone] Gt Prescott MD [address] [place] [address] 01/05/2026 9:00 AM EDT Office Visit [address] [phone] Gt Prescott MD [address] [place] [address] documented as of this encounter Goals Goal Patient Goal Type Associated Problems Recent Progress Patient-Stated? Author Pt goal General On track(07/04/20 24 1:42 PM EST) Yes Rosa Sánchez, OT Note: Use LUE for activity again st visits General On track(08/11/20 24 3:52 PM EST) Yes Rosa Sánchez, OT [...] BADL/IADL 09/27/24 MET for restored indep (drive. Cook, clean) Note pt initially planned to return to prior living situation but has opted to stay w/ daughter instead, however she can do all desired tasks there w/out assist documented as of this encounter Visit Diagnoses Not on filedocumented in this encounter Care Teams Sliver Former Relationship Specialty Start Date End Date Gt Prescott MD [address] [place] [phone] PCP - General Internal Medicine 02/21/20 documented as of this encounter
--- OUTSIDE RECORDS SUMMARY | 2025-05-23 17:23 | XMS_ITS | Encounter Summary ---
Author Organization [facility] Address [address] [place] [address] Care Team Providers Care Paramedic Instructor Name Role Phone System, Provider Not In Primary Care Provider Un available Gt Prescott MD Primary Care Provider [phone] Reason for Referral * Cardiology (Routine) - Authorized Specialty Diagnoses / Procedures Referred By Contact Referred To Contact Cardiovascular Disease / Cardiac Rehabilitation Diagnoses NSTEMI (non-ST elevated myocardial infarction) (HCC) Nicholas Hill MD [address] [place] [address] Phone: tel: fax: [facility] at [address] [place] [phone] Phone: tel: fax: Referral ID Status Reason Start Date Expiration Date Visits Requested Visits Authorized [id number] Authorized Support Services 05/26/2025 05/27/2026 1 1 Question Answer Indication for Cardiac Rehab Angioplasty/Stent Is the patient medically cleared to start cardiac rehab? Yes Cardiac rehab may start: Today * Cardiology (Routine) - Closed Specialty Diagnoses / Procedures Referred By Contact Referred To Contact Cardiovascular Disease / Cardiac Rehabilitation Diagnoses NSTEMI (non-ST elevated myocardial infarction) (HCC) Violet Arthur MD [address] [place] [address] Phone: tel: fax: Referral ID Status Reason Start Date Expiration Date V isits Requested Visits Authorized [id number] Closed Support Services 05/24/2025 05/25/2026 1 1 Question Answer Indication for Cardiac Rehab Angioplasty/Stent Is the patient medically cleared to start cardiac rehab? No The patient needs to be cleared by: Outpatient certified technician specialist Reason for Visit * Reason Comments Chest Pain * Auth/Cert Specialty Diagnoses / Procedures Referred By Contac t Referred To Contact Diagnoses NSTEMI (non-ST elevated myocardial infarction) (HCC) NSTEMI Procedures N/A Referral ID Status Reason Start Date Expiration Date Visits Re quested Visits Authorized [id number] 1 1 Encounter Details Date Type Department Care Team (Latest Contact Info) Description 05/23/2025 5:23 PM EDT - 05/26/2025 3:44 PM EDT Hospital Encounter [address] [id number] Zuhair Laura MD [address] [place] [address] Guerrero Estrada MD [address] [place] [address] Rajinder Davis MD [address] [place] [address] Nicholas Hill MD [address] [place] [id number] NSTEMI (non-ST elevated myocardial infarction) (HCC) (Primary Dx); Chest pain, unspecified; Nausea & vomiting; Diarrhea; At risk for abuse of opiates Discharge Disposition: Home or Self Care Social History Tobacco Use Types Packs/Day Years Used Date Smoking Tobacco: Never Assessed [facility] Utilities Answer Date Recorded In the past 12 months has [employer], oil, or water [employer] threatened to shut off services in your home? No 05/24/2025 Overall Financial Resource Strain (CARDIA) Answe r Date Recorded How hard is it for you to pa y for the very basics like food, housing, medical care, and heating? Not hard at all 05/24/2025 Hunger Vital Sign Answer Date Recorded Within the past 12 months, y ou worried that your food would run out before you got the money to buy more. Never true 05/24/20 25 Within the past 12 months, t he food you bought just didn't last and you didn't have money to get more. Never true 05/24/2025 PRAPARE - Transportation Answer Date Re corded In the past 12 months, has l ack of transportation kept you from medical appointments or from getting medications? No 08/2024 In the past 12 months, has l ack of transportation kept you from meetings, work, or from getting things needed for daily living? No 05/24/2025 Housing Stability Vital Sign Answer Luis e Recorded In the last 12 months, was t here a time when you were not able to pay the mortgage or rent on time? No 05/24/2025 In the past 12 months, how m any times have you moved where you were living? 0 05/24/2025 At any time in the past 12 m [facility], were you homeless or living in a jail (including now)? No 05/24/2025 Comments Unknown Sex and Gender Information Value Date Recorded Sex Assigned at Female 05/23/2025 5:47 PM EDT Legal Sex Female 7:08 PM EST Gender Identity Female 05/23/2025 5:47 PM EDT Sexual Orientation Heterosexual (straight) 05/23 5:47 PM EDT documented as of this encounter Last Filed Vital Signs Vital Sign Reading Time Taken Comments Blood Pressure 135/66 05/26/2025 9:01 AM EDT Pulse 62 05/26/2025 9:01 AM EDT Temperature 36.5 C (97.7 F) 05/26/2025 8:00 AM EDT Respiratory Rate 18 05/26/2025 8:00 AM EDT Oxygen Saturation 97% 05/26/2025 8:00 AM EDT Inhaled Oxygen Concentration - - Weight 76.4 kg (168 lb 6.9 oz) 05/26/2025 3:00 A M EDT Height 154.9 cm (5' 1 ) 05/24/2025 2:57 PM EDT Body Mass Index 31.82 05/24/2025 2:57 PM EDT documented in this encounter Discharge Summaries * Nicholas Hill MD - 05/26/2025 1:49 PM EDT Cardiology Hospitalist Discharge Summary Patient Demographics Name: Codie Fernández Date of : 1970 Age: 55 y.o. Allergies[1] Admission Date: 05/23/2025 Discharge Provider: Nicholas Hill MD Primary Care Physician at Discharge: Gt Prescott MD Discharge Date: 05/26/2025 Active/Discharge Diagnoses Principal Problem: NSTEMI (non-ST elevated myocardial infarction) (HCC) (POA: Yes) Active Problems: Type 2 diabetes mellitus without complication, without long-term current use of insulin (HCC) (POA:Unknown) Primary hypertension (POA: Unknown) Anemia in other chronic diseases classified elsewhere (POA: Unknown) Resolved Problems: History of present illness: Codie Fernández is a 55-year-old female w/ past medical history asthma, and COPD, presenting to theemergency department as a transfer from [facility] for concern of NSTEMI. Last evening around 11 PM, she developed acute onset nausea and vomiting associated with lower substernal chest pain. Initial EKG showed no acute ST-segment changes. Her nausea was managed with Zofran 4 mg x2, Benadryl, and Haldol. CTA chest was negative for acute pathology, while CT abdomen/pelvis revealed findings concerning for possible colitis and acute pancreatitis in the appropriate setting, though lipase and liver enzymes were not elevated. Her initial high-sensitivity troponin was 31, and although dis charge was initially considered, a repeat troponin returned at 797, prompting transfer for cardiology evaluation. She received aspirin 324 mg prior to transfer and was started on a heparin drip. In addition, workup at OSH showed LVEF 35% on TTE. On arrival, patient reported mild substernal chest pain but denied nausea, shortness of breath, or abdominal pain. Hospital Course: Of note, per chart review patient was diagnosed with possible PE back in 2021 patient presented to [facility] for respiratory illness, underwent CTA which showed a right filling defect, howeverit was thought to be likely an artifact. Repeat scan a couple weeks later was unremarkable. 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 Wilks, who had low suspicion for PE. AC discontinued. The patient was seen by general cardiology and recommended invasive approach. On [facility] patient had distal RCA disease and had PCI with ZORAIDA which was well- tolerated. Patient will continue with DAPT withaspirin and Brilinta for 12 months, high intensity statin therapy and her metoprolol will be changed to succinate 25 mg daily. Will resume losartan 25 mg daily. Repeat comprehensive TTE demonstrates preserved EF 66% with normal GLS, hypokinesis in the mid to basal inferoseptum and basal inferior segments, this is likely from the RCA. Her metabolic panel demonstrates an LDL of 92 with a hemoglobin A1c of 7.7. Aggressive risk factor modification with tight blood sugar control and blood pressure control recommended, diet and exercise as well as weight loss. Will be referred to cardiac rehab. Follow-up primary care provider within 1 week follow-up with general cardiology within 2 weeks in [facility]. Discharge Medications New Medications Sig aspirin enteric coated 81 MG EC tablet Commonly known as: ECOTRIN LOW STRENGTH Take 1 tablet (81 mg total) by mouth daily. Quantity: 30 tablet atorvastatin 80 MG tablet Commonly known as: LIPITOR Take 1 tablet (80 mg total) by mouth daily. Quantity: 90 tablet losartan 50 MG tablet Commonly known as: COZAAR Start taking on: May 27, 2025 Take 1 tablet (50 mg total) by mouth daily. Do not start before May 27, 2025. Quantity: 90 tablet metoPROLOL SUCCINATE 25 MG 24 hr tablet Commonly known as: TOPROL-XL Take 1 tablet (25 mg total) by mouth daily. Quantity: 30 tablet naloxone 4 mg/0.1 mL Liqd nasal spray device Commonly known as: NARCAN [place] contents (4mg) into one nostril once. May repeat every 2 to 3 minutes in alternating nostrils. Call 911 immediately after use. Quantity: 0.2 mL ticagrelor 90 MG tablet Commonly known as: BRILINTA Take 1 tablet (90 mg total) by mouth 2 (two) times a day. Quantity: 60 tablet Medications To Continue Sig Advair HFA 230-21 MCG/ACT inhaler Generic drug: fluticasone-salmeterol Inhale 1 puff 2 times a day. buPROPion 300 MG 24 hr tablet Commonly known as: WELLBUTRIN XL Take 1 tablet (300 mg total) by mouth every morning. calcium citrate 950 (200 Ca) MG tablet Commonly known as: CALCITRATE Take 1 tablet (950 mg total) by mouth daily. Combivent Respimat 20-100 MCG/ACT inhaler Generic drug: ipratropium-albuterol Inhale 1 puff 4 (four) times a day. D 1000 25 MCG (1000 UT) capsule Generic drug: cholecalciferol Take 1 capsule (1,000 Units total) by mouth daily. Denta 5000 Plus 1.1 % Crea Generic drug: SODIUM FLUORIDE (DENTAL GEL) APPLY A PEA SIZE AMOUNT ON TOOTHBRUSH, BRUSH TEETH THREE TIMES A DAY folic acid 1 MG tablet Commonly known as: FOLVITE Take 1 tablet (1,000 mcg total) by mouth daily. hydrOXYzine HCl 25 MG tablet Commonly known as: ATARAX Take 1 tablet (25 mg total) by mouth 3 times daily (every 8 hours) as needed for itching. ipratropium 0.02 % nebulizer solution Commonly known as: ATROVENT Take 2.5 mL (0.5 mg total) by nebulization 4 (four) times a day as needed for wheezing or shortnessof breath. montelukast 10 MG tablet Commonly known as: SINGULAIR Take 1 tablet (10 mg total) by mouth nightly. naltrexone 50 MG tablet Commonly known as: REVIA Take 1 tablet (50 mg total) by mouth daily. OMEprazole 40 MG capsule Commonly known as: PriLOSEC Take 1 capsule (40 mg total) by mouth every morning before breakfast. predniSONE 20 MG tablet Commonly known as: DELTASONE Take 1 tablet (20 mg total) by mouth 2 (two) times a day. For 5 days (end 05/22/25) Stopped Medications doxycycline 100 MG tablet Commonly known as: VIBRA-TABS ibuprofen 800 mg tablet Commonly known as: MOTRIN Procedure and Studies during Hospitalization/Data: Surgical/Procedural Cases on this Admission Case IDs Date Procedure Surgeon Location Status [id number] 05/24/25 CORONARY ANGIO W/LV Violet Arthur MD [employer] SUPERVISOR Comp Results from last 7 days Lab Units 05/25/25 0755 05/24/25 0747 05/23/25 1819 WHITE BLOOD CELL COUNT Thou/uL 8.7 7.1 10.1 HEMOGLOBIN g/dL 9.9* 9.6* 9.8* HEMATOCRIT % 33.8* 32.1* 32.9* PLATELET COUNT Thou/uL 386 327 371 Results from last 7 days Lab Units 05/25/25 0755 05/24/25 0747 05/23/25 1819 SODIUM mmol/L 137 138 137 POTASSIUM mmol/L 4.1 4.2 4.1 CHLORIDE mmol/L 101 103 101 CO2 mmol/L 24 26 24 BUN mg/dL 14 13 11 CREATININE mg/dL 0.82 0.99 0.86 CALCIUM mg/dL 8.9 8.7 8.8 Imaging: Echocardiogram (TTE) Comprehensive (Contrast PRN) Result Date: 05/26/2025 The left ventricle is moderately dilated. Left ventricular systolic function is normal. The quantitative EF is 66% by 3D imaging, and 66% by 2D Hernandes biplane. Global longitudinal strain is -18.3%. There is hypokinesis of the mid to basal inferoseptum and the basal inferior segments. Diastolic function is indeterminate. Right ventricular systolic function is normal. There are no hemodynamically significant valvular abnormalities noted. There is a minimal pericardial effusion.There is a left pleural effusion. There is no previous study for comparison in our system. CARDIAC CATHETERIZATION Result Date: 05/24/2025 Table formatting from the original result was not included. Images from the original result were not included. [facility] Heart & Vascular [place] at [facility] - Cardiac Catheterization Laboratory PATIENT DEMOGRAPHIC INFORMATION Name: Codie Fernández : 1970 55 y.o. Sex: female Gender: female Procedure Date: 05/24/2025 Referring Physician: Guerrero Estrada PCP: Provider Not In System PROCEDURE: Procedures: * CORONARY ANGIO W/LV * ZORAIDA PLACEMENT, 1ST ARTERY * IVUS 1ST VESSEL Dual Hose Cementer: Violet Arthur MD Fellow: Luis Alberto Pereira MD Booking Police Officer(s): none Indications for Procedure: NSTEMI PCI Indication: NSTEMI CONCLUSIONS/RECOMMENDATIONS Access with IVUS guided PCI of thedistal RCA with a 2.75 mm x 28 mm Synergy XD ZORAIDA that was postdilated with a 3 mm NC balloon. Normal LVEDP. No gradient on pullback. RRA precaution. Continue aspirin 81 mg daily and ticagrelor 90 mg twice daily. High-dose statin and beta-elier as tolerated. Check 2D echo. Continue aggressive riskfactor modification. PROCEDURE FINDINGS Pressures Site LV 116 mmHg/3 mmHg 14 mmHg AO 119 mmHg/59 mmHg 83 mmHg AV Gradient 0 mmHg CLINICAL HISTORY 55- year-old female with a PMH of asthma, (HTN, PE, SPARKLE on CPAP,Obesity s/p gastric banding & sleeve noted who was admitted to the hospital due to new onset cardiomyopathy and uptrending troponin. PROCEDURE/INTERVENTION Access Site: Right radial artery Sheath Size: 6F Slender Catheters used: JR4, JL3.5, JR 4 Guide Comments: N/A Hemostasis Method: Compressive band Intervention: After administration of additional heparin the RCA was engaged with aJR 4 guiding catheter, a short run- through wire was used to traverse the lesion and placed into theRPDA. The lesion was predilated with a 2.5 mm balloon. Thereafter a IVUS was performed using an [place] eye IVUS catheter that showed a fibrofatty plaque with a distal reference diameter of 2.75 mm andproximal reference diameter of 3 mm. Thereafter, a 2.75 mm x 28 millimeter Synergy XD ZORAIDA was deployed across the lesion at nominal pressure. Next a 3 mm noncompliant balloon was used to post dilate the proximal and mid segment of the stent. Final angiography revealed excellent result without spasmdissection or thrombus. IMPLANTS Implant Name Type Inv. Item Serial No. Mechanical Integrity Specialist Lot No. LRB No. Used Action [id number] CORONARY STENT SYSTEM SYNERGY XD MR 2.75MM 28MM DELIVERY SYS - [id number] Stent [id number] CORONARY STENT SYSTEM SYNERGY XD MR 2.75MM 28MM DELIVERY [employer] [id number] N/A 1 Implanted Complications: None Anesthesia: The procedure was performed under moderate conscious sedation by an independent trained observer (RN) and supervised by the under signed attending MD. See meds list. Sedation Time: 39 minutes 57 seconds Contrast Used: Med Administrations and Associated Flowsheet Values (last 24 hours) Date/Time Action Medication Dose 05/24/25 1119 Given iohexol (OMNIPAQUE) 350 mg/mL injection 80 mL Estimated Blood Loss: 5 mL Verbal Orders and Supervisory Attestation: As the attending physician, I verify I was present throughout the entire procedure and provided physician orders as documented in the specialty electronic documentation system. Furthermore I directly supervised all non physicians providers who assisted me during the procedure Georgiana accept delegation of supervisory responsibility for all post procedure patient care activity related to this patient that I request from a [facility] PA/BRASS INSTRUMENT REPAIR TECHNICIAN/fellow/staff member. 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) Exam Occurrence: Initial exam Indication(s) for Exam: Chest Pain, Abnormal ECG Views Obtained: Parasternal long-axis, Parasternal short-axis, Apical 4-chamber Findings and Interpretation: Cardiac Activity: Present Pericardium: No p ericardial effusion LV function (estimated EF): Decreased (30-50% EF) Regional Wall Motion Abnormality?: Septal regional wall motion abnormality, Anterior regional wall motion abnormality Other findings:: There is an apical abnormality in the setting of potential takotsubo cardiomyopathy but given elevated troponin and chest pain, likely will need consideration for LHC. RV: Normal Aortic Root: <4 cm Medical Decision Making: All focused emergency ultrasounds are limited exams. Comprehensive studies should be obtained for further evaluation as clinically indicated. Attending Signature: I have personally performed or supervised the performance of the ultrasound, reviewed the images as archived, and agree with the findings and impression as documented Electronically signed by Zuhair aLuraMay 23, 2025 at 9:20 PM US Heart Archive for reference only Result Date: 05/23/2025 This study has been auto finalized and does not contain a result. Activity: See discharge instructions Followup: See discharge instructions Recommended Tests to be done as an outpatient: none Physical Exam: Vitals: 05/26/25 0901 BP: 135/66 Pulse: 62 Resp: Temp: SpO2: Weight: Height: Intake/Output Summary (Last 24 hours) at 05/26/2025 1353 Last data filed at 05/26/2025 1348 Gross per 24 hour Intake 494 ml Output -- Net 494 ml Constitutional:-awake, alert, oriented in no distress SKIN: Inspection of the skin reveals no rashes, ulcerations or petechiae. HEENT:-Normocephalic, Atraumatic,PEERLA, EOMI, no conjuctival jaundice or erythema noted,Mucous membranes moist, External ears w/o mass. External Ears w/o lesion, Nose w/o mass or lesion, Oropharynx w/o erythema, Oropharynx w/o edema. Neck:-Supple, no JVD, no carotid bruits, no thyroid masses or lymphadenopathy, trachea in the middle. Chest:-CTA, no wheezes, no rales, no rhonchi, equal breath sounds. CVS:-RRR, normal S1, normal S2, no S3, no S$, no click, gallops or murmurs, carotid upstroke is 2+ bilaterally with no bruit Abd:-soft, NT, BS active, no rebound, rigidity or guarding, no hernias, no venous distension, no bruits audible Extr:-well perfused, no edema, no cyanosis, no calf tenderness. Neurological Normal gait, No focal deficit, Normal speech, Normal tone, Strength equal bilateral, Reflexes equal bilateral, Sensation intact, Cranial nerves intact. Musculoskeletal:-No deformities. Skin:-No bruises, no echymosis, no petechias. Condition on Discharge: stable Discharge Disposition: home Time to coordinate discharge > 35 minutes Patient has been explained discharge planning and medication side effect. Patient understands and have appropriate follow-ups. Nicholas Hill MD 05/26/2025 1:53 PM CC: Gt Prescott MD [1] Allergies Allergen Reactions Latex Rash/Dermatitis documented in this encounter Medications at Time of Discharge Advair HFA 230-21 MCG/ACT inhaler Inhale 1 puff 2 times a day. aspirin enteric coated (ECOTRIN LOW STRENGTH) 81 MG EC tabletIndication s:NSTEMI (non-ST elevated myocardial infarction) (HCC) Take 1 tablet (81 mg total) by mouth daily. 30 tablet 05/26/2025 atorvastatin (LIPITOR) 80 MG tabletIndication s:NSTEMI (non-ST elevated myocardial infarction) (HCC) Take 1 tablet (80 mg total) by mouth daily. 90 tablet 3 05/26/2025 6 buPROPion (WELLBUTRIN XL) 300 MG 24 hr tablet Take 1 tablet (300 mg total) by mouth every morning. 10/27/2024 calcium citrate (CALCITRATE) 950 (200 Ca) MG tablet Take 1 tablet (950 mg total) by mouth daily. cholecalciferol (D 1000) 1000 units capsule Take 1 capsule (1,000 Units total) by mouth daily. 09/19/2024 Combivent Respimat 20-100 MCG/ACT inhaler Inhale 1 puff 4 (four) times a day. Denta 5000 Plus 1.1 % Cream APPLY A PEA SIZE AMOUNT ON TOOTHBRUSH, BRUSH TEETH THREE TIMES A DAY 02/28/2025 folic acid (FOLVITE) 1 MG tablet Take 1 tablet (1,000 mcg total) by mouth daily. hydrOXYzine HCl (ATARAX) 25 MG tablet Take 1 tablet (25 mg total) by mouth 3 times daily (every 8 hours) as needed for itching. 12/26/2024 ipratropium (ATROVENT) 0.02 % nebulizer solution Take 2.5 mL (0.5 mg total) by nebulization 4 (four) times a day as needed for wheezing or shortness of breath. 03/06/2025 losartan (COZAAR) 50 MG tabletIndication s:NSTEMI (non-ST elevated myocardial infarction) ([facility]) Take 1 tablet (50 mg total) by mouth daily. Do not start before May 27, 2025. 90 tablet 3 05/27/2025 6 metoPROLOL SUCCINATE (TOPROL-XL) 25 MG 24 hr tabletIndication s:NSTEMI (non-ST elevated myocardial infarction) ([facility]) Take 1 tablet (25 mg total) by mouth daily. 30 tablet 05/26/2025 5 montelukast (SINGULAIR) 10 MG tablet Take 1 tablet (10 mg total) by mouth nightly. naloxone (NARCAN) 4 mg/0.1 mL Liquid nasal spray deviceIndication s:At risk for abuse of opiates [place] contents (4mg) into one nostril once. May repeat every 2 to 3 minutes in alternating nostrils. Call 911 immediately after use. 0.2 mL 05/26/2025 naltrexone (REVIA) 50 MG tablet Take 1 tablet (50 mg total) by mouth daily. OMEprazole (PriLOSEC) 40 MG capsule Take 1 capsule (40 mg total) by mouth every morning before breakfast. predniSONE (DELTASONE) 20 MG tablet Take 1 tablet (20 mg total) by mouth 2 (two) times a day. For 5 days (end 05/22/25) 2025 ticagrelor (BRILINTA) 90 MG tabletIndication s:NSTEMI (non-ST elevated myocardial infarction) (HCC) Take 1 tablet (90 mg total) by mouth 2 (two) times a day. 60 tablet 05/26/2025 documented as of this encounter Progress Notes * Nicole Noble RN - 05/26/2025 2:19 PM EDT 05/26/25 1400 Plan Plan Home Routine Patient/Family in Agreement with Plan yes Final Discharge Disposition Code 01 - home or self-care Final Case Management Care Plan Note Summary: Per provider, patient is medically ready to transition home. Confirmed that patient is able to obtain medications/food/necessities post discharge. Final Destination: Home Routine Plan for home support/Caregiver/responsible person: Spouse Follow-up provider appointment: Per AVS Equipment Ordered and Given at Discharge: None Final Discharge Transportation: Family * Marcia Mayfield DO - 05/26/2025 12:35 PM EDT VOLUNTEER RECRUITMENT COORDINATOR SERVICE FOLLOW UP Chief Complaint: NSTEMI Assessment & Plan Assessment Codie Fernández is a 55 y.o. female with Pmhx significant for prior PE (2021), HTN, SPARKLE on CPAP, obesity s/p prior gastric sleeve and band procedure recently started on GLP-1 agonist who [facility] on [facility]23 with abdominal pain and was transferred to for management of NSTEMI in setting of elevated hs-Tn with no ECG changes. She underwent coronary angiogram s/p PCI with ZORAIDA to distal RCA, tolerated well. No acute events overnight. LVEDP not elevated on [facility]. Plan - TTE on 05/26 shows an EF of 66% with moderately dilated LV, hypokinesis of the mid to basal inferoseptum and basal inferior segment. Normal RV systolic function with no hemodynamically significant valvular abnormalities. Left lower effusion minimal pericardial effusion. - Continue DAPT (asa and brilinta) - for CAD management continue high intensity statin, metoprolol succinate 25 mg daily. - Continue losartan 25 mg daily. -Her A1c is 7.7% she would likely benefit from Jardiance as well for GDMT this can be started today. - She needs risk factor modification for her diabetes and hyperlipidemia. -She will follow outpatient with settlement technician clinic for further monitoring until he establishes care in [place]. -Rest of care per primary team. She is okay to be discharged from cardiology perspective today. Discussed with attending. Plan is not finalized until attending attestation. Sign Marcia Chaparro, DO 05/26/2025 12:35 PM Available via [email or web address] Text 16/03 at Heavy Truck Mechanic Consult Service Subjective Acute events overnight, chest pain-free. Eager to go home. Objective Telemetry Reviewed: No issues Last Vitals Pulse:62,Resp:18,BP:135/66,SpO2:97 %,Weight:76.4 kg (168 lb 6.9 oz) Temp Last 24 hrs: Temp Min: 97.7 ??F (36.5 ??C) Max: 98.3 ??F (36.8 ??C) Intake/Output Summary (Last 24 hours) at 05/26/2025 1235 Last data filed at 05/26/2025 1025 Gross per 24 hour Intake 614 ml Output -- Net 614 ml Physical Exam GENERAL: No acute distress. HENT: Anicteric. PERRLA. Moist oral membranes. NECK: No carotid bruits. JVP normal CHEST: Clear to auscultation bilaterally. CARDIAC: Regular rate and rhythm. Nondisplaced PMI. No M/R/G. VASCULAR: + DP pulses. EXTREMITIES: Warm, well-perfused. No edema. NEURO: Alert. No focal deficits appreciated. Medications Medications Scheduled Medication Ordered Dose/Rate, Route, Frequency Last Action aspirin enteric coated (ECOTRIN LOW STRENGTH) tablet 81 mg 81 mg, PO, Daily Given, 81 mg at 05/26 901 atorvastatin (LIPITOR) tablet 80 mg 80 mg, PO, Daily Given, 80 mg at 05/26 901 docusate sodium (COLACE) capsule 100 mg 100 mg, PO, BID Given, 100 mg at 05/25 2058 fluticasone-vilanterol (BREO ELLIPTA) 100-25 MCG/ACT inhaler 1 puff 1 puff, IN, Daily Given, 1 puff at 05/26 903 folic acid (FOLVITE) tablet 1,000 mcg 1,000 mcg, PO, Daily Given, 1,000 mcg at 05/26 902 insulin lispro (HumaLOG/ADMELOG) 100 units/mL injection 1-5 Units 1-5 Units, SC, TID with meals Ordered losartan (COZAAR) tablet 50 mg 50 mg, PO, Daily Ordered metoPROLOL SUCCINATE (TOPROL-XL) 24 hr tablet 25 mg 25 mg, PO, Daily Given, 25 mg at 05/26 901 montelukast (SINGULAIR) tablet 10 mg 10 mg, PO, Nightly Given, 10 mg at 05/25 2058 naltrexone (REVIA) tablet 50 mg 50 mg, PO, Daily Given, 50 mg at 05/26 902 PANTOprazole (PROTONIX) EC tablet 40 mg 40 mg, PO, BID Given, 40 mg at 05/26 901 polyethylene glycol (miraLAx) packet 17 g 17 g, PO, Daily Given, 17 g at 05/25 1705 ticagrelor (BRILINTA) tablet 90 mg 90 mg, PO, BID Given, 90 mg at 05/26 901 PRN Medication Ordered Dose/Rate, Route, Frequency Last Action acetaminophen (TYLENOL) tablet 650 mg 650 mg, PO, Q6H PRN Ordered dextrose 50 % solution 12.5 g (Or Linked Group #1) 12.5 g, IV, Q15 Min PRN Ordered dextrose 50 % solution 25 g (Or Linked Group #1) 25 g, IV, Q15 Min PRN Ordered glucagon (GLUCAGEN) injection 1 mg (Or Linked Group #1) 1 mg, IM, Daily PRN Ordered glucose (GLUTOSE 15) 40 % oral gel 37.5 g (Or Linked Group #1) 1 Tube, PO, Q15 Min PRN Ordered glucose (GLUTOSE 15) 40 % oral gel 75 g (Or Linked Group #1) 2 Tube, PO, Q15 Min PRN Ordered hydrOXYzine HCl (ATARAX) tablet 25 mg 25 mg, PO, Q8H PRN Ordered ipratropium-albuterol (DUONEB) 0.5-2.5 mg/3 mL nebulizer solution 3 mL 3 mL, NEBULIZATION, Q4H PRN Given, 3 mL at 05/25 0637 naloxone (NARCAN) 0.4 mg/mL injection 0.4 mg 0.4 mg, IV, Q5 Min PRN Ordered ondansetron (ZOFRAN) injection 4 mg 4 mg, IV, Q6H PRN Ordered Relevant data reviewed Results from last 7 days Lab Units 05/26/25 1201 05/26/25 0810 05/25/25 2119 05/25/25 0835 05/25/25 0755 05/24/25 1343 05/24/25 0747 05/24/25 0721 05/23/25 1819 SODIUM mmol/L -- -- -- -- 137 -- 138 -- 137 POTASSIUM mmol/L -- -- -- -- 4.1 -- 4.2 -- 4.1 CHLORIDE mmol/L -- -- -- -- 101 -- 103 -- 101 CO2 mmol/L -- -- -- -- 24 -- 26 -- 24 BUN mg/dL -- -- -- -- 14 -- 13 -- 11 CREATININE mg/dL -- -- -- -- 0.82 -- 0.99 -- 0.86 CALCIUM mg/dL -- -- -- -- 8.9 -- 8.7 -- 8.8 GLUCOSE mg/dL -- -- -- -- 115* -- 80 -- 78 GLUCOSE, POC mg/dL 89 81 111* < > -- < > -- < > -- EGFR -- -- -- -- 83 -- 67 -- 79 ALBUMIN g/dL -- -- -- -- 3.4* -- -- -- 3.5 PROTEIN, TOTAL g/dL -- -- -- -- 6.4 -- -- -- 6.4 BILIRUBIN TOTAL mg/dL -- -- -- -- 0.4 -- -- -- 0.4 ALK PHOS U/L -- -- -- -- 80 -- -- -- 87 ALT U/L -- -- -- -- 15 -- -- -- 15 AST U/L -- -- -- -- 36 -- -- -- 28 < > = values in this interval not displayed. Lab Results Component Value Date MG 2.0 05/23/2025 Results from last 7 days Lab Units 05/25/25 0755 05/24/25 0747 05/23/25 1819 WHITE BLOOD CELL COUNT Thou/uL 8.7 7.1 10.1 HEMOGLOBIN g/dL 9.9* 9.6* 9.8* HEMATOCRIT % 33.8* 32.1* 32.9* PLATELET COUNT Thou/uL 386 327 371 NEUTROS PCT % 68.6 -- 67.8 LYMPHS PCT % 20.6 -- 21.1 MONOS PCT % 6.1 -- 7.4 EOS PCT % 2.5 -- 1.5 BASOS PCT % 0.6 -- 0.5 Lab Results Component Value Date HSTNT 93 (HH) 05/24/2025 HSTNT 136 (HH) 05/23/2025 Lab Results Component Value Date PROBNP 2,273 (H) 05/24/2025 Imaging Studies All appropriate imaging studies within the past 24 hours reviewed (actual images) No results found. Consider removing the Comprehensive Echo and ordering a limited Echo. Most recent Echo Impression results: Date of Result: No results found for this or any previous visit. Cosigned by Rajni Hahn MD at 05/26/2025 2:14 PM EDT Associated attestation - Rajni Hahn MD - 05/26/2025 2:14 PM EDT I have personally interviewed and examined the patient and reviewed Dr. Mayfield's (Resident/Fellow) note. I agree with the history, exam, assessment and plan as detailed in the Resident/Fellow's note with the following additions/exceptions/observations. Patient doing relatively well postoperatively. Transthoracic echocardiogram shows improved LVEF with residual wall motion abnormalities in the mid to apical septum. Agree with GDMT detailed below. Sign: Rajni Hahn MD 05/26/2025 2:08 PM * Camilo Simon, MED STUDENT - 05/26/2025 8:27 AM EDT Cardiology Progress Note Principal Problem: NSTEMI (non-ST elevated myocardial infarction) (HCC) (POA: Yes) Active Problems: Type 2 diabetes mellitus without complication, without long-term current use of insulin (HCC) (POA:Unknown) Primary hypertension (POA: Unknown) Anemia in other chronic diseases classified elsewhere (POA: Unknown) Resolved Problems: Assessment & Plan Assessment 55 yo female w PMHx of DMII, SPARKLE on CPAP, HTN was transferred to for NSTEMI, now s/p PCI w distal RCA ZORAIDA placement on 05/24. TTE this morning showed EF 66%, moderately dilated LV, hypokinesis in mid to basal inferoseptal andbasal inferior segments. Plan - Increase Losartan to 50 mg daily - c/w brilinta 90 mg BID, Aspirin 81 mg daily - c/w metoprolol succ 25 mg daily- c/w lipitor 80 mg daily. - F/u with our clinic outpatient until she establishes care back home in [place]. Subjective 55 yo female w PMHx of DMII, SPARKLE on CPAP, HTN was tranferred to for NSTEMI, now s/p PCI w distalRCA ZORAIDA placement on 05/24. No events overnight, this morning pt had no complaints, she was asking when can she go home. Objective Last Vitals Pulse:(!) 57,Resp:18,BP:(!) 118/56,SpO2:97 %,Weight:76.4 kg (168 lb 6.9 oz) Temp Last 24 hrs: Temp Min: 97.7 ??F (36.5 ??C) Max: 98.3 ??F (36.8 ??C) Intake/Output Summary (Last 24 hours) at 05/26/2025 0869 Last data filed at 05/25/2025 1807 Gross per 24 hour Intake 610 ml Output -- Net 610 ml Physical Exam General appearance: alert, appears stated age, and cooperative Lungs: clear to auscultation bilaterally Heart: regular rate and rhythm, S1, S2 normal, no murmur, click, rub or gallop Extremities: extremities normal, atraumatic, no cyanosis or edema, mild bruising and edema at access site on R wrist. Sign ROYA Garcia STUDENT 05/26/2025 8:27 AM Cosigned by Marcia Mayfield DO at 05/26/2025 1:43 PM EDT Associated attestation - Marcia Mayfield DO - 05/26/2025 1:43 PM EDT Client Insights Consultant Inpatient Attestation I have personally interviewed and examined the patient and reviewed the medical student note for teaching purposes. See my separate note for that day for assessment/plan Sign Marcia Mayfield DO Available on [employer] 05/26/25 1:43 PM * Nicholas Hill MD - 05/25/2025 1:48 PM EDT Progress Note Hospital Day: 3, Admit Date: 05/23/2025 Assessment and plan: Ms. Fernández is a 55 y.o. female with history of hypertension, prior PE in 2021, SPARKLE on CPAP, prior gastric sleeve and band procedure recently started on GLP-1 agonist admitted with non-STEMI found to have distal RCA disease treated with PCI with ZORAIDA. Outside TTE demonstrates moderately diminished EF. Assessment & Plan NSTEMI (non-ST elevated myocardial infarction) (HCC) At OSH patient noted to have rise in trops from 31 --> 797, repeat in our ED 136 -->93. In addition TTE showed newly reduced EF of 35% and imaging with findings consistent with possible Takutsubo versus dominant RCA lesion. Patient denies any recent significant stressors in her life, however was recently treated for suspected asthma exacerbation. -S/p PCI with ZORAIDA to RCA, normal LV EDP - Continue DAPT with aspirin/ticagrelor - High intensity statin therapy - Change Lopressor to Toprol-XL 25 mg daily - Resume losartan 25 mg daily - Comprehensive TTE to reassess EF and WMA's - Continue aggressive risk factor modification Type 2 diabetes mellitus without complication, without long-term current use of insulin (HCC) -A1c 7.7 -Diabetic diet, weight loss and exercise program - Resume GLP-1 agonist at the discharge Primary hypertension -2 g sodium diet - Resume losartan 25 mg daily and continue Toprol-XL Anemia in other chronic diseases classified elsewhere -Microcytic and hypochromic - Will need iron supplementation - Anemia is multifactorial I have updated the Patient and addressed their concerns. Disposition:-pending TTE Quality metrics: # Telemetry: Active Telemetry Order Indication - Cardiac (Non-Rhythm Related) Chest pain/NC/ACS Continue Telemetry?: Yes Cardiac (Non-Rhythm Related) # Diet: Diet Cardiac; 2 gm NA (Low Sodium); Low Fat (50gmfat, Low Chol, Low Sat Fat) # Code status: Full Code # Valladares catheter: No Active Urethral Catheter (Valladares) Order # Central lines: # Expected Date of Discharge: 05/25/2025 {Click to update EAMON: [id number]} VTE Time Out IMPROVE SCORE: 0 (05/23/2025 9:31 PM) Interpretation - Low Risk Chemical Prophylaxis Low VTE risk ticagrelor (BRILINTA) tablet 90 mg Oral 2 times daily aspirin enteric coated (ECOTRIN LOW STRENGTH) tablet 81 mg Oral Daily Heparin (Porcine) in NaCl, Heparin Sodium (Porcine) 5000 Units Last dose 05/24/2025 10:37 AM Heparin Sodium (Porcine) 3000 Units Last dose 05/24/2025 10:46 AM Heparin Sodium (Porcine) 2000 Units Last dose 05/24/2025 11:05 AM Mechanical Prophylaxis SCDs are ordered - Bilateral (Knee High) Subjective: Chief complaint Chief Complaint Patient presents with Chest Pain Patient is being seen for acute medical problems and follow-up for chronic medical issues as mentioned in the assessment and plan above. # Event overnight: No acute events reported Ms. Fernández was seen earlier today. she reported feeling well and denies any chest pressure or pain or shortness of breath NSR :sinus bradycardia Objective: Last 3 Filed Values 05/25/25 0639 05/25/25 0749 05/25/25 1143 BP: (!) 106/54 135/65 Pulse: 66 72 Resp: 18 18 Temp: 97.6 ??F (36.4 ??C) 97.7 ??F (36.5 ??C) TempSrc: Tympanic Tympanic SpO2: 99% 100% 100% SpO2 Min: 97 % Max: 100 % O2 Device: room air (none) Flow (L/min) (Oxygen Therapy): 2 Weight: on admission: 78.1 kg (172 lb 2.9 oz), (05/23/2025 5:37 PM) Recent: 76.1 kg (167 lb 12.3 oz), (05/25/2025 5:41 AM) Last Documented Bowel Movement - Intake/Output Summary (Last 24 hours) at 05/25/2025 1348 Last data filed at 05/25/2025 1336 Gross per 24 hour Intake 970 ml Output -- Net 970 ml Constitutional:-awake, alert, oriented in no distress SKIN: Inspection of the skin reveals no rashes, ulcerations or petechiae. HEENT:-Normocephalic, Atraumatic,PEERLA, EOMI, no conjuctival jaundice or erythema noted,Mucous membranes moist, External ears w/o mass. External Ears w/o lesion, Nose w/o mass or lesion, Oropharynx w/o erythema, Oropharynx w/o edema. Neck:-Supple, no JVD, no carotid bruits, no thyroid masses or lymphadenopathy, trachea in the middle. Chest:-CTA, no wheezes, no rales, no rhonchi, equal breath sounds. CVS:-RRR, normal S1, normal S2, no S3, no S$, no click, gallops or murmurs, carotid upstroke is 2+ bilaterally with no bruit Abd:-soft, NT, BS active, no rebound, rigidity or guarding, no hernias, no venous distension, no bruits audible Extr:-well perfused, no edema, no cyanosis, no calf tenderness. Neurological Normal gait, No focal deficit, Normal speech, Normal tone, Strength equal bilateral, Reflexes equal bilateral, Sensation intact, Cranial nerves intact. Musculoskeletal:-No deformities. Skin:-No bruises, no echymosis, no petechias. Scheduled medications 05/25/25 1:48 PM As needed medications: aspirin enteric coated, 81 mg, Oral, Daily atorvastatin, 80 mg, Oral, Daily fluticasone-vilanterol, 1 puff, Inhalation, Daily folic acid, 1,000 mcg, Oral, Daily insulin lispro, 1-5 Units, Subcutaneous, TID with meals losartan, 25 mg, Oral, Daily metoPROLOL SUCCINATE, 25 mg, Oral, Daily montelukast, 10 mg, Oral, Nightly naltrexone, 50 mg, Oral, Daily PANTOprazole, 40 mg, Oral, BID ticagrelor, 90 mg, Oral, BID acetaminophen glucose OR glucose OR dextrose OR dextrose OR glucagon hydrOXYzine HCl ipratropium-albuterol naloxone ondansetron Current infusions: Diagnostic studies: I have reviewed the labs and ordered new labs if needed. Recent Labs 05/23/25181805/24/2547 05/25/25 0755 WBC 10.1 7.1 8.7 HGB 9.8* 9.6* 9.9* HCT 32.9* 32.1* 33.8* PLT 371 327 386 Recent Labs 05/23/25181805/24/2547 05/25/25 0755 NA 137 138 137 K 4.1 4.2 4.1 CO2 24 26 24 CL 101 103 101 BUN 11 13 14 CREAT 0.86 0.99 0.82 CALCIUM 8.8 8.7 8.9 MG 2.0 -- -- BILITOT 0.4 -- 0.4 ALKPHOS 87 -- 80 AST 28 -- 36 ALT 15 -- 15 ALBUMIN 3.5 -- 3.4* Recent Labs 05/23/251818 PTT 72* INR 1.0 No results for input(s): SARSCOV2 , INFLAV , INFLBV in the last 72 hours. Blood Culture Results Since Admission No results found for this visit on 05/23/25. Urine Culture Results Since Admission No results found for this visit on 05/23/25. Imaging Studies: No images to review. Nicholas Hill MD Relevant data reviewed Labs and Radiology Notable labs are: No results found for: CK , JAI , TNI , BNP Lab Results Component Value Date PROBNP 2,273 (H) 05/24/2025 No results found for: JAI , TNI Lab Results Component Value Date WBC 8.7 05/25/2025 HGB 9.9 (L) 05/25/2025 HCT 33.8 (L) 05/25/2025 PLT 386 05/25/2025 Lab Results Component Value Date NA 137 05/25/2025 K 4.1 05/25/2025 CL 101 05/25/2025 CO2 24 05/25/2025 BUN 14 05/25/2025 CREAT 0.82 05/25/2025 GLUC 87 05/25/2025 GLUC 115 (H) 05/25/2025 Lab Results Component Value Date TSH 4.75 (H) 05/23/2025 Imaging Studies CARDIAC CATHETERIZATION Result Date: 05/24/2025 Table formatting from the original result was not included. Images from the original result were not included. [facility] Heart & Vascular [place] at [facility] - Cardiac Catheterization Laboratory PATIENT DEMOGRAPHIC INFORMATION Name: Codie Fernández : 1970 55 y.o. Sex: female Gender: female Procedure Date: 05/24/2025 Referring Physician: Guerrero Estrada PCP: Provider Not In System PROCEDURE: Procedures: * CORONARY ANGIO W/LV * ZORAIDA PLACEMENT, 1ST ARTERY * IVUS 1ST VESSEL Dual Hose Cementer: Violet Arthur MD Fellow: Luis Alberto Pereira MD Booking Police Officer(s): none Indications for Procedure: NSTEMI PCI Indication: NSTEMI CONCLUSIONS/RECOMMENDATIONS Access with IVUS guided PCI of thedistal RCA with a 2.75 mm x 28 mm Synergy XD ZORAIDA that was postdilated with a 3 mm NC balloon. Normal LVEDP. No gradient on pullback. RRA precaution. Continue aspirin 81 mg daily and ticagrelor 90 mg twice daily. High-dose statin and beta-elier as tolerated. Check 2D echo. Continue aggressive riskfactor modification. PROCEDURE FINDINGS Pressures Site LV 116 mmHg/3 mmHg 14 mmHg AO 119 mmHg/59 mmHg 83 mmHg AV Gradient 0 mmHg CLINICAL HISTORY 55- year-old female with a PMH of asthma, (HTN, PE, SPARKLE on CPAP,Obesity s/p gastric banding & sleeve noted who was admitted to the hospital due to new onset cardiomyopathy and uptrending troponin. PROCEDURE/INTERVENTION Access Site: Right radial artery Sheath Size: 6F Slender Catheters used: JR4, JL3.5, JR 4 Guide Comments: N/A Hemostasis Method: Compressive band Intervention: After administration of additional heparin the RCA was engaged with aJR 4 guiding catheter, a short run- through wire was used to traverse the lesion and placed into theRPDA. The lesion was predilated with a 2.5 mm balloon. Thereafter a IVUS was performed using an [place] eye IVUS catheter that showed a fibrofatty plaque with a distal reference diameter of 2.75 mm andproximal reference diameter of 3 mm. Thereafter, a 2.75 mm x 28 millimeter Synergy XD ZORAIDA was deployed across the lesion at nominal pressure. Next a 3 mm noncompliant balloon was used to post dilate the proximal and mid segment of the stent. Final angiography revealed excellent result without spasmdissection or thrombus. IMPLANTS Implant Name Type Inv. Item Serial No. Mechanical Integrity Specialist Lot No. LRB No. Used Action [id number] CORONARY STENT SYSTEM SYNERGY XD MR 2.75MM 28MM DELIVERY SYS - [id number] Stent [id number] CORONARY STENT SYSTEM SYNERGY XD MR 2.75MM 28MM DELIVERY SYS [employer] [id number] N/A 1 Implanted Complications: None Anesthesia: The procedure was performed under moderate conscious sedation by an independent trained observer (RN) and supervised by the under signed attending MD. See meds list. Sedation Time: 39 minutes 57 seconds Contrast Used: Med Administrations and Associated Flowsheet Values (last 24 hours) Date/Time Action Medication Dose 05/24/25 1119 Given iohexol (OMNIPAQUE) 350 mg/mL injection 80 mL Estimated Blood Loss: 5 mL Verbal Orders and Supervisory Attestation: As the attending physician, I verify I was present throughout the entire procedure and provided physician orders as documented in the specialty electronic documentation system. Furthermore I directly supervised all non physicians providers who assisted me during the procedure [place] accept delegation of supervisory responsibility for all post procedure patient care activity related to this patient that I request from a [facility] PA/BRASS INSTRUMENT REPAIR TECHNICIAN/fellow/staff member. 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) Exam Occurrence: Initial exam Indication(s) for Exam: Chest Pain, Abnormal ECG Views Obtained: Parasternal long-axis, Parasternal short-axis, Apical 4-chamber Findings and Interpretation: Cardiac Activity: Present Pericardium: No pericardial effusion LV function (estimated EF): Decreased (30-50% EF) Regional Wall Motion Abnormality?: Septal regional wall motion abnormality, Anterior regional wall motion abnormality Other findings:: There is an apical abnormality in the setting of potential takotsubo cardiomyopathy but givenelevated troponin and chest pain, likely will need consideration for LHC. RV: Normal Aortic Root: <4 cm Medical Decision Making: All focused emergency ultrasounds are limited exams. Comprehensivestudies should be obtained for further evaluation as clinically indicated. Attending Signature: I have personally performed or supervised the performance of the ultrasound, reviewed the images as archived, and agree with the findings and impression as documented Electronically signed by Zuhair Laura on Friday, May 23, 2025 at 9:20 PM US Heart Archive for reference only Result Date: 05/23/2025 This study has been auto finalized and does not contain a result. * Marcia Mayfield DO - 05/25/2025 7:57 AM EDT VOLUNTEER RECRUITMENT COORDINATOR SERVICE FOLLOW UP Chief Complaint: NSTEMI Assessment & Plan Assessment Codie Fernández is a 55 y.o. female with Pmhx significant for prior PE (2021), HTN, SPARKLE on CPAP, obesity s/p prior gastric sleeve and band procedure recently started on GLP-1 agonist who presented toOSH on 05/23 with abdominal pain and was transferred to for management of NSTEMI in setting of elevated hs-Tn with no ECG changes. She underwent coronary angiogram s/p PCI with ZORAIDA to distal RCA, tolerated well. No acute events overnight. LVEDP not elevated on LHC. Plan - comprehensive TTE ordered for today. - Continue DAPT (asa and brilinta) - for CAD management continue high intensity statin, can change her Lopressor to metoprolol succinate 25 mg daily. - Blood pressure is well-controlled can also resume losartan 25 mg daily. - Formal echo to be done today, will follow results. Echo from outside hospital is concerning for reduced LV systolic function with hypokinesis of apical inferior septal wall of entire apex and inferoseptal wall and mid region, anteroseptal wall mid region. Further uptitration of GDMT pending TTE. - She needs risk factor modification for her diabetes and hyperlipidemia. -She will follow outpatient with settlement technician clinic. -Rest of care per primary team Discussed with attending. Plan is not finalized until attending attestation. Sign Marcia Mayfield, DO 05/25/2025 7:58 AM Available via [employer] 16/03 at Heavy Truck Mechanic Consult Service Subjective No acute events overnight. Patient has remained chest pain-free. Objective Telemetry Reviewed: No issues Last Vitals Pulse:66,Resp:18,BP:(!) 106/54,SpO2:100 %,Weight:76.1 kg (167 lb 12.3 oz) Temp Last 24 hrs: Temp Min: 97.1 ??F (36.2 ??C) Max: 98.6 ??F (37 ??C) Intake/Output Summary (Last 24 hours) at 05/25/2025 0752 Last data filed at 05/25/2025 0207 Gross per 24 hour Intake 1307.55 ml Output 5 ml Net 1302.55 ml Physical Exam GENERAL: No acute distress. HENT: Anicteric. PERRLA. Moist oral membranes. NECK: No carotid bruits. JVP normal CHEST: Clear to auscultation bilaterally. CARDIAC: Regular rate and rhythm. Nondisplaced PMI. No M/R/G. VASCULAR: + DP pulses. EXTREMITIES: Warm, well-perfused. No edema. NEURO: Alert. No focal deficits appreciated. Medications Medications Scheduled Medication Ordered Dose/Rate, Route, Frequency Last Action aspirin enteric coated (ECOTRIN LOW STRENGTH) tablet 81 mg 81 mg, PO, Daily Ordered atorvastatin (LIPITOR) tablet 80 mg 80 mg, PO, Daily Given, 80 mg at 05/24 0725 fluticasone-vilanterol (BREO ELLIPTA) 100-25 MCG/ACT inhaler 1 puff 1 puff, IN, Daily Ordered folic acid (FOLVITE) tablet 1,000 mcg 1,000 mcg, PO, Daily Given, 1,000 mcg at 05/24 1756 insulin lispro (HumaLOG/ADMELOG) 100 units/mL injection 1-5 Units 1-5 Units, SC, TID with meals Ordered metoPROLOL TARTRATE (LOPRESSOR) tablet 12.5 mg 12.5 mg, PO, Q12H GIUSEPPE Given, 12.5 mg at 05/24 2105 montelukast (SINGULAIR) tablet 10 mg 10 mg, PO, Nightly Given, 10 mg at 05/24 2104 naltrexone (REVIA) tablet 50 mg 50 mg, PO, Daily Given, 50 mg at 05/24 725 PANTOprazole (PROTONIX) EC tablet 40 mg 40 mg, PO, BID Given, 40 mg at 05/24 2104 ticagrelor (BRILINTA) tablet 90 mg 90 mg, PO, BID Given, 90 mg at 05/24 2104 PRN Medication Ordered Dose/Rate, Route, Frequency Last Action acetaminophen (TYLENOL) tablet 650 mg 650 mg, PO, Q6H PRN Ordered dextrose 50 % solution 12.5 g (Or Linked Group #1) 12.5 g, IV, Q15 Min PRN Ordered dextrose 50 % solution 25 g (Or Linked Group #1) 25 g, IV, Q15 Min PRN Ordered glucagon (GLUCAGEN) injection 1 mg (Or Linked Group #1) 1 mg, IM, Daily PRN Ordered glucose (GLUTOSE 15) 40 % oral gel 37.5 g (Or Linked Group #1) 1 Tube, PO, Q15 Min PRN Ordered glucose (GLUTOSE 15) 40 % oral gel 75 g (Or Linked Group #1) 2 Tube, PO, Q15 Min PRN Ordered hydrOXYzine HCl (ATARAX) tablet 25 mg 25 mg, PO, Q8H PRN Ordered ipratropium-albuterol (DUONEB) 0.5-2.5 mg/3 mL nebulizer solution 3 mL 3 mL, NEBULIZATION, Q4H PRN Given, 3 mL at 05/25 06 naloxone (NARCAN) 0.4 mg/mL injection 0.4 mg 0.4 mg, IV, Q5 Min PRN Ordered ondansetron (ZOFRAN) injection 4 mg 4 mg, IV, Q6H PRN Ordered Relevant data reviewed Results from last 7 days Lab Units 05/25/25 0230 05/25/25 0202 05/24/25 2100 05/24/25 1343 05/24/25 0747 05/24/25 0721 05/23/25 1819 SODIUM mmol/L -- -- -- -- 138 -- 137 POTASSIUM mmol/L -- -- -- -- 4.2 -- 4.1 CHLORIDE mmol/L -- -- -- -- 103 -- 101 CO2 mmol/L -- -- -- -- 26 -- 24 BUN mg/dL -- -- -- -- 13 -- 11 CREATININE mg/dL -- -- -- -- 0.99 -- 0.86 CALCIUM mg/dL -- -- -- -- 8.7 -- 8.8 GLUCOSE mg/dL -- -- -- -- 80 -- 78 GLUCOSE, POC mg/dL 118* 77 82 < > -- < > -- EGFR -- -- -- -- 67 -- 79 ALBUMIN g/dL -- -- -- -- -- -- 3.5 PROTEIN, TOTAL g/dL -- -- -- -- -- -- 6.4 BILIRUBIN TOTAL mg/dL -- -- -- -- -- -- 0.4 ALK PHOS U/L -- -- -- -- -- -- 87 ALT U/L -- -- -- -- -- -- 15 AST U/L -- -- -- -- -- -- 28 < > = values in this interval not displayed. Lab Results Component Value Date MG 2.0 05/23/2025 Results from last 7 days Lab Units 05/24/25 0747 05/23/25 1819 WHITE BLOOD CELL COUNT Thou/uL 7.1 10.1 HEMOGLOBIN g/dL 9.6* 9.8* HEMATOCRIT % 32.1* 32.9* PLATELET COUNT Thou/uL 327 371 NEUTROS PCT % -- 67.8 LYMPHS PCT % -- 21.1 MONOS PCT % -- 7.4 EOS PCT % -- 1.5 BASOS PCT % -- 0.5 Lab Results Component Value Date HSTNT 93 () 05/24/2025 HSTNT 136 (HH) 05/23/2025 Lab Results Component Value Date PROBNP 2,273 (H) 05/24/2025 Imaging Studies All appropriate imaging studies within the past 24 hours reviewed (actual images) No results found. Consider removing the Comprehensive Echo and ordering a limited Echo. Most recent Echo Impression results: Date of Result: No results found for this or any previous visit. Cosigned by Rajni Hahn MD at 05/26/2025 8:57 AM EDT Associated attestation - Rajni Hahn MD - 05/26/2025 8:57 AM EDT I have personally interviewed and examined the patient and reviewed Dr. Mayfield's (Resident/Fellow) note. I agree with the history, exam, assessment and plan as detailed in the Resident/Fellow's note with the following additions/exceptions/observations. Patient feeling well, status post PCI to distal RCA. This been resolution of symptoms of chest discomfort, nausea and vomiting. Continue DAPT with aspirin and Brilinta. Continue high intensity statin therapy. Sign: Rajni Hahn MD 05/25/2025 3:00 PM * Aleksandra Marti RN - 05/24/2025 3:53 PM EDT 05/24/25 1547 General Information Admission Type inpatient Arrived From Hospital Initial Information Source of Information patient;health record Patient Aware of Diagnosis yes Designated Caregiver for Discharge Coordination Do You Have a Designated Caregiver for Discharge? yes Designated Caregiver's Name Rosalva Guptadavid Caregiver's Relationship to Patient children's zoo caretaker's Living Environment People in Home spouse;child(scarlett), adult Current Living Arrangements other (see comments) ([facility] home) Primary Care Provided by self Provides Primary Care For no one Family Caregiver if Needed child(scarlett), adult Family Caregiver Names Rosalva Quality of Family Relationships helpful;involved;supportive Able to Return to Prior Arrangements yes Relationship/Environment Primary Source of Support/Comfort spouse;child(scarlett) Primary Roles/Responsibilities caregiver 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(s) Resource/Environmental Concerns Resource/Environmental Concerns home accessibility Home Accessibility Concerns stairs to enter home Transportation Concerns none Disability/Function Hearing Difficulty or Deaf no Visual Difficulty or Blind yes Vision Management glasses Difficulty Concentrating, Remembering or Making Decisions no Communication Difficulty no Eating/Swallowing Difficulty no Walking or Climbing Stairs Difficulty yes Walking or Climbing Stairs ambulation difficulty, requires equipment Mobility Management rw Dressing/Bathing Difficulty no Equipment Currently Used at Home walker, rolling Financial Resource Strain How hard is it for you to pay for the very basics like food, housing, medical care, and heating? Not hard Do you have any concerns about your current source of income or benefits No Living Arrangement Living arrangement: Children;Spouse Type of residence: Other ([facility] home - rental) Housing Stability In the last 12 months, was there a time when you were not able to pay the mortgage or rent on time?N In the past 12 months, how many times have you moved where you were living? 0 At any time in the past 12 months, were you homeless or living in a jail (including now)? N Food Insecurity Within the past 12 months, you worried that your food would run out before you got the money to buymore. Never true Within the past 12 months, the food you bought just didn't last and you didn't have money to get more. Never true Do you receive any assistance with food at this time? Y If so, from which agency/organization? SNAP Transportation Needs In the past 12 months, has lack of transportation kept you from medical appointments or from getting medications? no In the past 12 months, has lack of transportation kept you from meetings, work, or from getting things needed for daily living? No Utilities In the past 12 months has the [employer], [employer], [employer], or water [employer] threatened to shut off services in your home? No Interpersonal Safety Within the last year, have you been humiliated or emotionally abused in other ways by anyone? No Within the last year, have you been kicked, hit, slapped, or otherwise physically hurt by anyone? No Discharge Needs Assessment Readmission Within the Last 30 Days no previous admission in last 30 days Concerns to be Addressed denies needs/concerns at this time Patient/Family Anticipates Transition to home with family Patient/Family Anticipated Services at Transition outpatient care Transportation Anticipated family or friend will provide Anticipated Changes Related to Illness none Equipment Needed After Discharge none Plan Plan home w/ family Patient/Family in Agreement with Plan yes documented in this encounter H&P Notes * July Rosen MD - 05/23/2025 8:33 PM EDT MEDICINE H&P Admit Date: 05/23/2025 5:23 PM Patient's Primary Care Provider: Provider Not In System Principal Problem: NSTEMI (non-ST elevated myocardial infarction) (HCC) (POA: Yes) Resolved Problems: Assessment & Plan 55 y.o. female with PMHx of HTN, SPARKLE on CPAP, obesity s/p gastric banding and sleeve admitted for mgmt of NSTEMI and new systolic HF. NSTEMI New Systolic HF reduced EF 35% Atypical Chest Pain Concern for possible Stress Induced Cardiomyopathy (Takutsubo) Home Meds: n.a At OSH patient noted to have rise in trops from 31 --> 797, repeat in our ED 136 -->93. In addition TTE showed newly reduced EF of 35% and imaging with findings consistent with Takutsubo. Patient denies any recent significant stressors in her life, however was recently treated for suspected asthma exacerbation. 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 Unable to review images. No prior to compare. CTAs are not the best modality to diagnose nodules as contrast can reduce specificity and increases sensitivity. Patient does not have a significant pack year smoking history. Has recent hx of URI. Plan: - Recommend non urgent repeat CT scan without contrast, this can be done on an outpatient Abdominal Pain Nausea/Vomiting GERD Home Meds: Omeprazole Prior to admission had multiple episodes of non bilious non bloody vomiting, substernal chest pain/LUQ pain. Denies radiation to the back. Initial concerns for pancreatitis/colitis given CT findings and abdominal pain. Lipase was negative. Patient tolerating PO. No recurring episodes of vomiting. Endorses nausea Plan: - Continue PPI equivalent while IP - Zofran PRN Obesity Prediabetes Hx of Gastric Band 2009 Hx Sleeve Gastrectomy 2017 Home Meds: Naltrexone 50 mg + Buproprion Last document 5.7% 6mo ago Patient was planned to start mounjaro, however insurance company denied use for weight loss Plan: - Obtain A1c - Hypoglycemia protocol - ISS + POCT FS ACHS Subclinical Hypothyroidism Home Meds: n.a Plan: - Repeat TSH + T4 Microcytic Anemia Hg 9.8, MCV 78, MCH 23.6, RDW 17% Plan: - Obtain Iron studies - Consider IV iron during admission VTE Time Out IMPROVE SCORE: 0 (05/23/2025 9:31 PM) Interpretation - Low Risk Chemical Prophylaxis heparin (porcine) IV infusion 25,000 units in 500 mL 0.45% NaCl (premix) Intravenous Continuous heparin (porcine) 1000 unit/mL injection 2,300 Units Intravenous Every 6 hours PRN Mechanical Prophylaxis SCDs are ordered - Bilateral (Knee High) Diet: Clears past midnight Tele: T Valladares: N GI ppx: Y, home medication Code: FULL Dispo: General Medicine Subjective Chief Complaint Patient complains of: Chest pain, abdominal pain, N/V History of Present Illness Codie Fernández w/ past medical history asthma, and COPD, presenting to the emergency department asa transfer from [facility] for concern of NSTEMI. Last evening around 11 PM, she developed acute onset nausea and vomiting associated with lower substernal chest pain. Initial EKG showed no acute ST- segment changes. Her nausea was managed with Zofran 4 mg x2, Benadryl, and Haldol. CTA chest was negative for acute pathology, while CT abdomen/pelvis revealed findings concerning for possible colitis and acute pancreatitis in the appropriate setting, though lipase and liver enzymes werenot elevated. Her initial high-sensitivity troponin was 31, and although discharge was initially considered, a repeat troponin returned at 797, prompting transfer for cardiology evaluation. She received aspirin 324 mg prior to transfer and was started on a heparin drip. In addition, workup at OSH showed LVEF 35% on TTE. On arrival, patient reported mild substernal chest pain but denied nausea, shortness of breath, or abdominal pain. Of note, per chart review patient was diagnosed with possible PE back in 2021 patient presented to [facility] for respiratory illness, underwent CTA which showed a right filling defect, howeverit was thought to be likely an artifact. Repeat scan a couple weeks later was unremarkable. 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 Wilks, who had low suspicion for PE. AC discontinued. Patient also noted recent course of prednisone and doxycyline for suspected URI/PNA and asthma exacerbation. ED Course Vitals: Afrebrile, IA 67, RR 14, BP 123/73, Spo2 100% on RA Pertinent Labs: WBC 10.1, H/H 9.8/32.9, MCV 79, plt 371, Na 137, K 4.1, bicarb 24, AG 12, Cr 0.86 Trop 31 --> 700 -->136 Imaging: ECG: NSR Interventions: Continued on heparin drip Medicine Evaluation At time of evaluation patient resting comfortably in stretcher. Denies any ongoing abdominal discomfort or chest pain. Ascertained CODE STATUS with patient at bedside patient wishes to be FULL CODE at this time Review of Systems Review of Systems Constitutional: Negative for activity change, appetite change, fatigue and fever. HENT: Negative. Eyes: Negative. Respiratory: Negative. Cardiovascular: Positive for chest pain. Gastrointestinal: Positive for nausea and vomiting. Endocrine: Negative. Genitourinary: Negative. Musculoskeletal: Positive for back pain. Allergic/Immunologic: Negative. Neurological: Negative. Hematological: Negative. Psychiatric/Behavioral: Negative. Objective Past History No past medical history on file. No past surgical history on file. No family history on file. Social History Tobacco Use Smoking status: Not on file Smokeless tobacco: Not on file Substance Use Topics Alcohol use: Not on file Allergies Allergies[1] Home Medications (Not in a hospital admission) Physical Exam Patient Vitals for the past 8 hrs: BP Temp Temp src Pulse Resp SpO2 Weight 05/23/252031 (!) 101/51 97.8 ??F (36.6 ??C) Temporal 62 16 99 % -- 05/23/25 1825 105/60 -- -- 68 16 99 % -- 05/23/25 1737 -- -- -- -- -- -- 78.1 kg (172 lb 2.9 oz) 05/23/25 1719 123/73 97.8 ??F (36.6 ??C) Tympanic 67 14 100 % -- No intake or output data in the 24 hours ending 05/23/252202 Physical Exam Constitutional: General: She is not in acute distress. Appearance: She is obese. She is not ill-appearing. HENT: Mouth/Throat: Mouth: Mucous membranes are dry. Cardiovascular: Rate and Rhythm: Normal rate and regular rhythm. Pulses: Normal pulses. Heart sounds: Normal heart sounds. Pulmonary: Effort: Pulmonary effort is normal. Breath sounds: Normal breath sounds. Abdominal: General: Bowel sounds are normal. Palpations: Abdomen is soft. Tenderness: There is no guarding or rebound. Skin: General: Skin is warm. Capillary Refill: Capillary refill takes less than 2 seconds. Neurological: General: No focal deficit present. Mental Status: She is alert. ECG: Recent Results (from the past 8760 hours) 10 Min ECG 12 lead Collection Time: 05/23/25 5:25 PM Result Value Status Ventricular rate 69 Final Atrial rate 69 Final P-R interval 162 Final QRS duration 78 Final Q-T interval 446 Final QTC calculation (Bazett) 478 Final P axis 27 Final R axis 8 Final T axis 18 Final Narrative Normal sinus rhythm Septal infarct , age undetermined Abnormal ECG No previous ECGs available Confirmed by MD Alexandr, Erik ([id number]) on 05/23/2025 9:16:25 PM Relevant data reviewed Labs Notable labs are: White Blood Cell Count Date Value Ref Range Status 05/23/2025 10.1 4.0 - 11.0 Thou/uL Final Hemoglobin Date Value Ref Range Status 05/23/2025 9.8 (L) 11.7 - 15.7 g/dL Final Hematocrit Date Value Ref Range Status 05/23/2025 32.9 (L) 35.0 - 47.0 % Final Platelet Count Date Value Ref Range Status 05/23/2025 371 150 - 450 Thou/uL Final Lab Results Component Value Date NA 137 05/23/2025 K 4.1 05/23/2025 CL 101 05/23/2025 CO2 24 05/23/2025 BUN 11 05/23/2025 CREAT 0.86 05/23/2025 GLUC 78 05/23/2025 Imaging Studies Ed Performed Us Cardiac Limited Final Result Plan Discussed with Attending Physician Dr. Sean Rosen MD Internal Medicine, PGY-2 Available on [place]-text and [employer] [1] Allergies Allergen Reactions Latex Rash/Dermatitis Cosigned by Guerrero Estrada MD at 05/24/2025 4:18 AM EDT Associated attestation - Guerrero Estrada MD - 05/24/2025 4:18 AM EDT Attending Physician Attestation Level of Participation I have personally interviewed and examined the patient and reviewed Dr. Rosen's note. I agree withthe history, exam, assessment and plan as detailed in the resident's note with the following additions/exceptions/observations: 55-year-old female with history of gastric sleeve and [facility]. Patient initially presented to outside hospital with complaint of nausea, vomiting, upper abdominaldiscomfort. CT scan was concerning for possible pancreatitis in the appropriate setting and colitis. Troponins were elevated at [facility]. Also TTE was performed showing LVEF 35% with anteriorseptal wall, the apex, and apical lateral segments are akinetic. Started on heparin drip and transferred to [facility]. Currently asymptomatic. Denies prior cardiac disease, but has 2 brothers who have had open heart surgery. She is of [place] descent. Initial troponin here 136-> 93. Continue ASA, heparin drip. Interventional cardiology consult placed for the morning. In regards to possible pancreatitis on CT: Lipase at outside hospital was negative, currently does not have any pain. LFTs here are normal. Can monitor symptoms for now. Guerrero Estrada MD [facility]- Internal Medicine documented in this encounter Consult Notes * Roxanne Blanco MD - 05/23/2025 10:31 PM EDTAssociated Order(s): IP CONSULT TO CARDIOLOGY Images from the original note were not included. CARDIOLOGY FELLOWS SERVICE CONSULT NOTE Date of Consult: 05/24/2025 Patient's Primary Care Physician: Provider Not In System Physician Requesting Consult: Dr. Liset Estrada Primary Classics Teacher: NA Reason for Consultation: NSTEMI Admit Date: 05/23/2025 5:23 PM Assessment & Plan Assessment Codie Fernández is a 55F with hx of prior PE (2021), HTN, SPARKLE on CPAP, obesity s/p prior gastric sleeve and band procedure recently started on GLP-1 agonist who presented to OSH on 05/23 with abdominal pain and was transferred to for management of NSTEMI. Problem List NSTEMI, chest pain atypical/noncardiac New systolic heart failure, HFrEF (LVEF 30s?), Takutsubo's, NYHA II, warm and slightly wet Obesity s/p multiple surgical interventions, on bupropion and naltrexone Prior PE, questionable diagnosis, potentially artifact, no longer on AC Longstanding asthma and allergies Unable to review CTA from OSH to assess for coronary artery calcification. Preliminary review of TTE from OSH is concerning for reduced LV systolic function with a/hypokinesis of apical inferoseptal wall, entire apex, inferoseptal wall in mid region, anteroseptal wall mid region, could be consistent with LAD infarct versus Takotsubo if no obstructive coronary artery disease is seen. As she is not actively having chest pain, is electrically and hemodynamically stable, she does not need urgent angiography at this time. Plan - Follow-up TTE - Follow-up repeat HST until downtrending and proBNP - Obtain A1c and lipid panel for risk stratification - Consult interventional cardiology [ordered] - Continue with ASA, high intensity statin - Can start low-dose metoprolol to tartrate 12.5 twice daily - STAT EKG if + chest pain - SL NTG PRN for chest pain - Continue with heparin GTT - N.p.o. 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 Ten days prior to admission, patient experienced shortness of breath and received prednisone and antibiotics for presumed asthma flare. 2 days prior to presentation, she was abruptly awoken in the middle of the night with significant abdominal pain and nausea with ongoing dry heaving and occasional episodes of diarrhea. This continued all throughout yesterday and with the episodes of dry heaving, she reported sharp substernal chest pain. She did not experience the chest pain outside of these vomiting/dry heaving episodes. With this, she also endorsed difficulty breathing precipitated by coughing in the setting of repeated dry heaving/vomiting. With the exception of prednisone and antibiotics, she denies any recent medication changes, denies any B/L LE edema, abdominal pain, loss of appetite, nausea, vomiting, chest pain or orthopnea in this time. Denies EtOH and tobacco use. Both her brothers had open heart surgery for which she believes they received stents in their 60s, but her mother and father do not have a history of CAD/CVA. Workup at OSH notable for pancreatitis and colitis seen on CT A/P, CTA negative for PE, and lab work showed HST of 31 --> 797. Initial EKG showed sinus bradycardia, but repeat showed normal sinus with no ischemic changes. She was loaded with ASA, started on heparin gtt. TTE suggestive of LVEF 35%, and transferred to for further cardiac evaluation She is vitally stable with HR in 60s. Lab work here notable for microcytic anemia, otherwise unremarkable. Kidney function is at baseline. Initial HST elevated to 136, awaiting repeat. EKG here showsNSR HR 69, no significant ischemic changes. Review of Systems Review of systems negative unless stated above. Objective No past medical history on file. No past surgical history on file. No family history on file. Social History[1] Medications Prior to Admission Medications: Prescriptions Prior to Admission[2] Current Medications / MAR: Medications Scheduled Medication Ordered Dose/Rate, Route, Frequency Last Action aspirin enteric coated (ECOTRIN LOW STRENGTH) tablet 81 mg 81 mg, PO, Daily Ordered atorvastatin (LIPITOR) tablet 80 mg 80 mg, PO, Daily Given, 80 mg at 05/24 0725 insulin lispro (HumaLOG/ADMELOG) 100 units/mL injection 1-5 Units 1-5 Units, SC, TID with meals Ordered metoPROLOL TARTRATE (LOPRESSOR) tablet 12.5 mg 12.5 mg, PO, Q12H [facility] Ordered montelukast (SINGULAIR) tablet 10 mg 10 mg, PO, Nightly Given, 10 mg at 05/23 2223 naltrexone (REVIA) tablet 50 mg 50 mg, PO, Daily Given, 50 mg at 05/24 725 PANTOprazole (PROTONIX) EC tablet 40 mg 40 mg, PO, BID Given, 40 mg at 05/24 725 ticagrelor (BRILINTA) tablet 90 mg 90 mg, PO, BID Ordered Continuous Medication Ordered Dose/Rate, Route, Frequency Last Action sodium chloride 0.9% (NS) infusion 3 mL/kg/hr, IV, Continuous Ordered PRN Medication Ordered Dose/Rate, Route, Frequency Last Action acetaminophen (TYLENOL) tablet 650 mg 650 mg, PO, Q6H PRN Ordered dextrose 50 % solution 12.5 g (Or Linked Group #1) 12.5 g, IV, Q15 Min PRN Ordered dextrose 50 % solution 25 g (Or Linked Group #1) 25 g, IV, Q15 Min PRN Ordered glucagon (GLUCAGEN) injection 1 mg (Or Linked Group #1) 1 mg, IM, Daily PRN Ordered glucose (GLUTOSE 15) 40 % oral gel 37.5 g (Or Linked Group #1) 1 Tube, PO, Q15 Min PRN Ordered glucose (GLUTOSE 15) 40 % oral gel 75 g (Or Linked Group #1) 2 Tube, PO, Q15 Min PRN Ordered ipratropium-albuterol (DUONEB) 0.5-2.5 mg/3 mL nebulizer solution 3 mL 3 mL, NEBULIZATION, Q4H PRN Ordered naloxone (NARCAN) 0.4 mg/mL injection 0.4 mg 0.4 mg, IV, Q5 Min PRN Ordered ondansetron (ZOFRAN) injection 4 mg 4 mg, IV, Q6H PRN Ordered Allergies[3] Last Vitals Pulse:(!) 55,Resp:(!) 9,BP:135/67,SpO2:100 %,Weight:78.3 kg (172 lb 9.9 oz) Temp Last 24 hrs: Temp Min: 97.1 ??F (36.2 ??C) Max: 97.8 ??F (36.6 ??C) Intake/Output Summary (Last 24 hours) at 05/24/2025 1138 Last data filed at 05/24/2025 1113 Gross per 24 hour Intake -- Output 5 ml Net -5 ml Physical Exam Physical Exam Vitals and nursing note reviewed. Constitutional: Appearance: Normal appearance. She is obese. Neck: Comments: JVD 1 inch above clavicle Cardiovascular: Rate and Rhythm: Normal rate and regular rhythm. Pulses: Normal pulses. Heart sounds: Normal heart sounds. No murmur heard. Pulmonary: Effort: Pulmonary effort is normal. No respiratory distress. Breath sounds: Normal breath sounds. Musculoskeletal: Comments: Trace/1+ bilateral lower extremity edema extending up to mid shins Skin: General: Skin is warm and dry. Capillary Refill: Capillary refill takes less than 2 seconds. Neurological: Mental Status: She is alert. Relevant data reviewed: Results from last 7 days Lab Units 05/24/25 0747 05/24/25 0721 05/23/25 1819 SODIUM mmol/L 138 -- 137 POTASSIUM mmol/L 4.2 -- 4.1 CHLORIDE mmol/L 103 -- 101 CO2 mmol/L 26 -- 24 BUN mg/dL 13 -- 11 CREATININE mg/dL 0.99 -- 0.86 CALCIUM mg/dL 8.7 -- 8.8 GLUCOSE mg/dL 80 -- 78 GLUCOSE, POC mg/dL -- 94 -- EGFR 67 -- 79 ALBUMIN g/dL -- -- 3.5 PROTEIN, TOTAL g/dL -- -- 6.4 BILIRUBIN TOTAL mg/dL -- -- 0.4 ALK PHOS U/L -- -- 87 ALT U/L -- -- 15 AST U/L -- -- 28 Lab Results Component Value Date MG 2.0 05/23/2025 Results from last 7 days Lab Units 05/24/25 0747 05/23/25 1819 WHITE BLOOD CELL COUNT Thou/uL 7.1 10.1 HEMOGLOBIN g/dL 9.6* 9.8* HEMATOCRIT % 32.1* 32.9* PLATELET COUNT Thou/uL 327 371 NEUTROS PCT % -- 67.8 LYMPHS PCT % -- 21.1 MONOS PCT % -- 7.4 EOS PCT % -- 1.5 BASOS PCT % -- 0.5 Lab Results Component Value Date HSTNT 93 (HH) 05/24/2025 HSTNT 136 (HH) 05/23/2025 Lab Results Component Value Date PROBNP 2,273 (H) 05/24/2025 Lab Results Component Value Date HGBA1C 7.7 (H) 05/23/2025 Lab Results Component Value Date CHOL 183 05/24/2025 Lab Results Component Value Date HDL 79 05/24/2025 No results found for: LDLCALC Lab Results Component Value Date TRIG 62 05/24/2025 No results found for: CHOLHDL ECG: TELE: unable to load as patient is in the ED, but review of tele shows NSR in 60s. No significant ectopy noted. Imaging Studies: No results found. Consider removing the Comprehensive Echo and ordering a limited Echo. Most recent Echo Impression results: Date of Result: No results found for this or any previous visit. [1] [2] Medications Prior to Admission Medication Sig Dispense Refill Last Dose/Taking buPROPion (WELLBUTRIN XL) 300 MG 24 hr tablet Take 1 tablet (300 mg total) by mouth every morning. Taking cholecalciferol (D 1000) 1000 units capsule Take 1 capsule (1,000 Units total) by mouth daily. Taking Denta 5000 Plus 1.1 % Cream APPLY A PEA SIZE AMOUNT ON TOOTHBRUSH, BRUSH TEETH THREE TIMES A DAY Taking doxycycline (VIBRA-TABS) 100 MG tablet Take 1 tablet (100 mg total) by mouth 2 (two) times a day. Taking hydrOXYzine HCl (ATARAX) 25 MG tablet Take 1 tablet (25 mg total) by mouth 3 times daily (every 8 hours) as needed for itching. Taking As Needed ipratropium (ATROVENT) 0.02 % nebulizer solution Take 2.5 mL (0.5 mg total) by nebulization 4 (four) times a day as needed for wheezing or shortness of breath. Taking As Needed predniSONE (DELTASONE) 20 MG tablet Take 1 tablet (20 mg total) by mouth 2 (two) times a day. For 5days (end 05/22/25) Taking Advair HFA 230-21 MCG/ACT inhaler Inhale 1 puff 2 times a day. calcium citrate (CALCITRATE) 950 (200 Ca) MG tablet Take 1 tablet (950 mg total) by mouth daily. Combivent Respimat 20-100 MCG/ACT inhaler Inhale 1 puff 4 (four) times a day. folic acid (FOLVITE) 1 MG tablet Take 1 tablet (1,000 mcg total) by mouth daily. ibuprofen (MOTRIN) 800 mg tablet Take 1 tablet (800 mg total) by mouth 3 times daily (every 8 hours) as needed for mild pain. montelukast (SINGULAIR) 10 MG tablet Take 1 tablet (10 mg total) by mouth nightly. naltrexone (REVIA) 50 MG tablet Take 1 tablet (50 mg total) by mouth daily. OMEprazole (PriLOSEC) 40 MG capsule Take 1 capsule (40 mg total) by mouth every morning before breakfast. [3] Allergies Allergen Reactions Latex Rash/Dermatitis Cosigned by Rajni Hahn MD at 05/24/2025 12:31 PM EDT Associated attestation - Rajni Hahn MD - 05/24/2025 12:31 PM EDT I have personally interviewed and examined the patient and reviewed Dr. Blanco's (Resident/Fellow) note. I agree with the history, exam, assessment and plan as detailed in the Resident/Fellow's note with the following additions/exceptions/observations. 55-year-old female with a history of obesity status post prior gastric sleeve and band procedure who presented to outside hospital with nausea vomiting and chest pain. High-sensitivity troponin is elevated. No definite ECG changes suggestive of ischemia. Transthoracic echocardiogram performed at outside hospital shows regional wall motion abnormality with akinesis of the apex, apical septum and apical inferior wall. Given risk factors, she was evaluated further with left heart catheterization and patient is now status post PCI to the distal RCA. Will obtain a formal transthoracic echocardiogram here. Continue DAPT with aspirin and ticagrelor. Continue high intensity statin therapy with atorvastatin 80 mg daily. She will need cardiac rehabilitation postdischarge and close outpatient follow-up with cardiology. Sign: Rajni Hahn MD 05/24/2025 12:21 PM documented in this encounter ED Notes * Varinder Khan RN - 05/24/2025 10:07 AM EDT Patient well appearing. To cathodic protection technician at this time with this RN. Varinder Khan RN 05/24/25 1007 * Varinder Khan RN - 05/24/2025 9:50 AM EDT XA therapeutic, heparin continued at current rate Varinder Khan RN 05/24/25 0950 * Varinder Khan RN - 05/24/2025 9:48 AM EDT Patient resting in HB continues to deny complaints at this time. No chest pain or SOB. No headachesor dizziness. Patient not in any acute distress. Plan for cathodic protection technician Varinder Khan RN 05/24/25 0949 * Varinder Khan RN - 05/24/2025 7:32 AM EDT Patient A&ox4 resting in HB. Reports L knee pain at this time but no other complaints. No headaches or dizziness. No N/V/D. Denies chest pain or SOB. RR is even and unlabored on room air. Plan for repeat labs and cathodic protection technician. Varinder Khan RN 05/24/25 0733 * Meena Brown RN - 05/24/2025 7:00 AM EDT Report given to Varinder WARREN and care transferred at this time. Meena Brown RN 05/24/25 0700 * Varinder Khan RN - 05/24/2025 7:00 AM EDT I have acknowledged/accepted the hand off of care for this patient from KELVIN Robledo. We have verifiedthe telemetry order, leads are on the patient, alarms on, and a SB rhythm. Varinder Khan RN 05/24/25 0700 * Meena Brown RN - 05/24/2025 5:09 AM EDT Pt resting comfortably in HB. Appears in nad. Breathing with ease. Rr even and unlabored. Denies any complaints att. Heparin titrated to 10 att. Plans for admission Meena Brown RN 05/24/25 0510 * Meena Brown RN - 05/24/2025 3:11 AM EDT Pt resting comfortably in HB. Appears in nad. Phlebotomy notified of need for antixa draw. Pt denies any complaints. Breathing with ease. Rr even and unlabored. Plans for admission Meena Brown RN 05/24/25 0511 * Meena Brown RN - 05/24/2025 1:57 AM EDT Pt resting comfortably in HB. Appears in nad. Breathing with ease. Rr even and unlabored. Denies any acute complaints. Plans for admission Meena Brown RN 05/24/25 0158 * Meena Brown RN - 05/23/2025 11:34 PM EDT Pt resting comfortably in HB. Appears in nad. Breathing with ease. Rr even and unlabored. Heparin remains infusing. Pt denies jiang, n/v, dizziness, n/t, abd pain, cp, sob. Pt reports feeling tired. Call palmer within reach. Plans for admission Meena Brown RN 05/23/25 [id number] * Jess Seals RN - 05/23/2025 11:14 PM EDT Report given to Meena WARREN and care transferred at this time. Jess Seals RN 05/23/25 4679 * Meena Brown RN - 05/23/2025 11:14 PM EDT I have acknowledged/accepted the hand off of care for this patient. Meena Brown RN 05/23/25 7765 * Jess Seals RN - 05/23/2025 10:25 PM EDT Pt resting on HB in NAD. RR even and unlabored on room air. Plan for ip admit. Bed locked and in lowest position. Call palmer within reach. Jess Seals RN 05/23/25 8670 * Zuhair Laura MD - 05/23/2025 9:32 PM EDT History of Present Illness: Codie Fernández is a 55 y.o. female transfer him outside hospital with nausea, vomiting, diarrhea, possible acute colitis and pancreatitis and currently does not have any symptoms. Physical Exam: Constitutional: Well-appearing, in no apparent respiratory distress. Does not appear ill Head: Atraumatic Eyes: EOMI, Conjunctivae Clear, No Icterus Ear, Nose, Mouth, Throat: Grossly normal inspection. Handling secretions normally. Neck: Supple. Normal ROM. Cardiovascular: Normal rate. Respiratory: No respiratory distress noted. No tachypnea noted. Gastrointestinal: Non-distended abdomen. Flat. Musculoskeletal: Grossly normal range of motion. Skin: Normal for age and race. No rash noted. Neurologic: Alert and appropriate, no apparent acute CN deficits. Medical Decision Making (MDM) DDx: Patient overall well-appearing, has elevated troponins, bedside ultrasound does demonstrate a wall motion abnormality around the apex suggestive of stress- induced cardiomyopathy and patient is asymptomatic now, but ultimately will need admission for consideration of left heart cath. Zuhair Laura MD 05/23/25 9:32 PM Please contact via Support Your App or at extension [phone] with any questions or concerns. This report was generated using [employer] software. Although every attempt has been made by the provider to proofread this document, occasional misspellings and typographical errors may still be present. Zuhair Laura MD 05/23/252138 * Jess Seals RN - 05/23/2025 8:23 PM EDT Med titrated per protocol and anti xa ordered per heparin protocol. Jess Seals RN 05/23/252023 * Rangel Richardson RN - 05/23/2025 6:15 PM EDT Antixa started at same rate from OSH Rangel Richardson RN 05/23/25 181 documented in this encounter Miscellaneous Notes * Plan of Care - Marisol Avila RN - 05/26/2025 5:07 AM EDT Progress: no change Outcome Evaluation: A&Ox4. Denies SOB or CP. Medicated per OCT. RRA CDI. Plan for echo. Safety maintained. Call palmer within reach. Marisol Avila 05/26/2025 5:07 AM * Plan of Care - Jen Blevins RN - 05/25/2025 9:29 PM EDT Patient alert and oriented X4, SR on telemetry, on room air. Pt awaits echo. Pt had no complaints of chest pain today. Pt educated about salt and fluid relationship in the body, fluid management, and heart failure zones and symptoms. Pt taught about the GDMT and what meds help with. Heart failure workbook provided to pt and family members, and a swedish language HF workbook for pt's , who often prepares food for pt. Bowel regimen received, pt's last BM LINUX ENGINEER. Miralax given. Pt's family to bedside again today. Jen blevins 05/25/2025 9:29 PM * Assessment & Plan Note - Nicholas Hill MD - 05/25/2025 2:08 PM EDTAssociated Problem(s): NSTEMI (non-ST elevated myocardial infarction) (HCC) At OSH patient noted to have rise in trops from 31 --> 797, repeat in our ED 136 -->93. In addition TTE showed newly reduced EF of 35% and imaging with findings consistent with possible Takutsubo versus dominant RCA lesion. Patient denies any recent significant stressors in her life, however was recently treated for suspected asthma exacerbation. -S/p PCI with ZORAIDA to RCA, normal LV EDP - Continue DAPT with aspirin/ticagrelor - High intensity statin therapy - Change Lopressor to Toprol-XL 25 mg daily - Resume losartan 25 mg daily - Comprehensive TTE to reassess EF and WMA's - Continue aggressive risk factor modification * Assessment & Plan Note - Nicholas Hill MD - 05/25/2025 2:08 PM EDTAssociated Problem(s): Type 2 diabetes mellitus without complication, without long-term current useof insulin (HCC) -A1c 7.7 -Diabetic diet, weight loss and exercise program - Resume GLP-1 agonist at the discharge * Assessment & Plan Note - Nicholas Hill MD - 05/25/2025 2:08 PM EDTAssociated Problem(s): Primary hypertension -2 g sodium diet - Resume losartan 25 mg daily and continue Toprol-XL * Assessment & Plan Note - Nicholas Hill MD - 05/25/2025 2:08 PM EDTAssociated Problem(s): Anemia in other chronic diseases classified elsewhere -Microcytic and hypochromic - Will need iron supplementation - Anemia is multifactorial * Case Coordination-Payor Communication - Laxmi Hay RN - 05/25/2025 12:44 PM EDT Continued Stay Review Date: 05/25/2025 Clinical Update: She underwent coronary angiogram s/p PCI with ZORAIDA to distal RCA, tolerated well. No acute events overnight. LVEDP not elevated on LHC. CARDIOLOGY PLAN: - comprehensive TTE ordered for today. - Continue DAPT (asa and brilinta) - for CAD management continue high intensity statin, can change her Lopressor to metoprolol succinate 25 mg daily. - Blood pressure is well-controlled can also resume losartan 25 mg daily. - Formal echo to be done today, will follow results. Echo from outside hospital is concerning for reduced LV systolic function with hypokinesis of apical inferior septal wall of entire apex and inferoseptal wall and mid region, anteroseptal wall mid region. Further uptitration of GDMT pending TTE. - She needs risk factor modification for her diabetes and hyperlipidemia INTERNAL MED PLAN: NSTEMI (non-ST elevated myocardial infarction) (HCC) At OSH patient noted to have rise in trops from 31 --> 797, repeat in our ED 136 -->93. In addition TTE showed newly reduced EF of 35% and imaging with findings consistent with possible Takutsubo versus dominant RCA lesion. Patient denies any recent significant stressors in her life, however was recently treated for suspected asthma exacerbation. -S/p PCI with ZORAIDA to RCA, normal LV EDP - Continue DAPT with aspirin/ticagrelor - High intensity statin therapy - Change Lopressor to Toprol-XL 25 mg daily - Resume losartan 25 mg daily - Comprehensive TTE to reassess EF and WMA's - Continue aggressive risk factor modification Type 2 diabetes mellitus without complication, without long-term current use of insulin (HCC) -A1c 7.7 -Diabetic diet, weight loss and exercise program - Resume GLP-1 agonist at the discharge Primary hypertension -2 g sodium diet - Resume losartan 25 mg daily and continue Toprol-XL Anemia in other chronic diseases classified elsewhere -Microcytic and hypochromic - Will need iron supplementation - Anemia is multifactorial Vitals: Date/Time Temp Pulse Resp BP SpO2 O2 Device 05/25/25 1143 97.7 (36.5) 72 18 135/65 100 room air (none) 05/25/25 0749 97.6 (36.4) 66 18 106/54 Abnormal 100 room air (none) 05/25/25 0639 -- -- -- -- 99 room air (none) 05/24/25 2336 97.1 (36.2) 54 Abnormal 16 136/67 100 room air (none) 05/24/25 2102 -- 63 16 128/61 97 room air (none) 05/24/25 2013 -- -- -- -- 98 room air (none) 05/24/25 1920 97.3 (36.3) -- 14 -- 98 room air (none) 05/24/25 1700 -- 58 Abnormal -- 127/62 -- room air (none) 05/24/25 1630 -- 58 Abnormal -- 131/65 -- room air (none) 05/24/25 1600 -- 57 Abnormal -- 127/68 -- room air (none) 05/24/25 1530 -- 56 Abnormal -- 119/63 -- -- 05/24/25 1500 -- 56 Abnormal -- -- 99 room air (none) Meds/Treatments: ASA PO, Lipitor 80mg PO, Humalog subcutaneous, Losartan 25mg PO, Toprol-XL 25mg PO, Revia 50mg PO, Brilinta 90mg PO BID, Duoneb Labs/Diagnostics: H/H: 9.9/ 33.8 Bed Type: Telemetry D/C Plan: Ongoing care Sign Laxmi Hay RN 05/25/2025 12:45 PM * Case Coordination-Payor Communication - Nahomy Tellez - 05/25/2025 9:08 AM EDT Per [facility] General Statutes Sec: [id number]: Notification of determination communicated within 2business days of receipt of all information necessary to complete the review. Please fax authorization determination to [phone] or call [phone] * Case Coordination-Payor Communication - Laxmi Hay RN - 05/25/2025 8:21 AM EDT Admission Note Type: (Inpt/Obsv): Inpatient Date of Admission: 05/23/2025 Admitting Dx: NSTEMI (non-ST elevated myocardial infarction) (HCC) [I21.4] PMH: No past medical history on file. HPI: 55 y/o female. Codie Fernández w/ past medical history asthma, and COPD, presenting to the emergency department as a transfer from [facility] for concern of NSTEMI. Last evening around 11PM, she developed acute onset nausea and vomiting associated with lower substernal chest pain. Initial EKG showed no acute ST-segment changes. Her nausea was managed with Zofran 4 mg x2, Benadryl, and Haldol. CTA chest was negative for acute pathology, while CT abdomen/pelvis revealed findings concerning for possible colitis and acute pancreatitis in the appropriate setting, though lipase and liver enzymes were not elevated. Her initial high-sensitivity troponin was 31, and although discharge was initially considered, a repeat troponin returned at 797, prompting transfer for cardiology evaluation. She received aspirin 324 mg prior to transfer and was started on a heparin drip. In addition, workup at OSH showed LVEF 35% on TTE. On arrival, patient reported mild substernal chest pain but den ied nausea, shortness of breath, or abdominal pain. Of note, per chart review patient was diagnosed with possible PE back in 2021 patient presented to [facility] for respiratory illness, underwent CTA which showed a right filling defect, howeverit was thought to be likely an artifact. Repeat scan a couple weeks later was unremarkable. 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 Wilks, who had low suspicion for PE. AC discontinued. Vitals: 05/23/25 22:22:55 -- 63 16 138/61 100 room air (none) 05/23/25 2210 -- 65 16 127/68 100 room air (none) 05/23/25 2032 97.8 (36.6) 62 16 101/51 Abnormal 99 room air (none) 05/23/25 18:25:54 -- 68 16 105/60 99 room air (none) 05/23/25 1719 97.8 (36.6) 67 14 123/73 100 -- Labs/Diagnostics: H/H:9.8/ 32.9 TROP T: 136 Orders/Treatment Plan: NSTEMI New Systolic HF reduced EF 35% Atypical Chest Pain Concern for possible Stress Induced Cardiomyopathy (Takutsubo) Home Meds: n.a At OSH patient noted to have rise in trops from 31 --> 797, repeat in our ED 136 -->93. In addition TTE showed newly reduced EF of 35% and imaging with findings consistent with Takutsubo. Patient denies any recent significant stressors in her life, however was recently treated for suspected asthma exacerbation. 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 Unable to review images. No prior to compare. CTAs are not the best modality to diagnose nodules as contrast can reduce specificity and increases sensitivity. Patient does not have a significant pack year smoking history. Has recent hx of URI. Plan: - Recommend non urgent repeat CT scan without contrast, this can be done on an outpatient Abdominal Pain Nausea/Vomiting GERD Home Meds: Omeprazole Prior to admission had multiple episodes of non bilious non bloody vomiting, substernal chest pain/LUQ pain. Denies radiation to the back. Initial concerns for pancreatitis/colitis given CT findings and abdominal pain. Lipase was negative. Patient tolerating PO. No recurring episodes of vomiting. Endorses nausea Plan: - Continue PPI equivalent while IP - Zofran PRN Obesity Prediabetes Hx of Gastric Band 2009 Hx Sleeve Gastrectomy 2017 Home Meds: Naltrexone 50 mg + Buproprion Last document 5.7% 6mo ago Patient was planned to start mounjaro, however insurance company denied use for weight loss Plan: - Obtain A1c - Hypoglycemia protocol - ISS + POCT FS ACHS Subclinical Hypothyroidism Home Meds: n.a Plan: - Repeat TSH + T4 Microcytic Anemia Hg 9.8, MCV 78, MCH 23.6, RDW 17% Plan: - Obtain Iron studies CARDIOLOGY PLAN: - Follow-up TTE - Follow-up repeat HST until downtrending and proBNP - Obtain A1c and lipid panel for risk stratification - Consult interventional cardiology [ordered] - Continue with ASA, high intensity statin - Can start low-dose metoprolol to tartrate 12.5 twice daily - STAT EKG if + chest pain - SL NTG PRN for chest pain - Continue with heparin GTT - N.p.o. after midnight - Continue to monitor on tele - Keep K > 4 and Mg > 2 Medications: Lopressor 12.5mg PO Q12H, Heparin IV Cont Bed Type: Telemetry Continued Stay Review Date: 05/24/2025 Clinical Update: Barriers to patient transition/ medical necessity requiring continued inpatient stay: PCI PLAN: NSTEMI (non-ST elevated myocardial infarction) (HCC) At OSH patient noted to have rise in trops from 31 --> 797, repeat in our ED 136 -->93. In addition TTE showed newly reduced EF of 35% and imaging with findings consistent with Takutsubo. Patient denies any recent significant stressors in her life, however was recently treated for suspected asthma exacerbation. Plan: - Cath this AM - ear mold laboratory technician diet protocol (clears past midnight) - Continue heparin gtt - Start metoprolol 12.5 tartrate BD (hold for hypotension/bradycardia) - Obtain lipid panel - Start high intensity statin - Start ASA 81 - Sublingual nitroglycerin for chest pain - Obtain proBNP COPD Asthma SPARKLE on CPAP Home Meds: Advair + Spiriva + Montelukast Plan: - Continue home meds during admission - Duo nebs PRN Pulmonary Nodules Plan: - Recommend outpatient follow-up Abdominal Pain Nausea/Vomiting GERD Home Meds: Omeprazole Prior to admission had multiple episodes of non bilious non bloody vomiting, substernal chest pain/LUQ pain. Denies radiation to the back. Initial concerns for pancreatitis/colitis given CT findings and abdominal pain. Lipase was negative. Patient tolerating PO. No recurring episodes of vomiting. Endorses nausea. The patient likely had viral colitis given her history of diarrhea, vomiting and nausea for the past week. Plan: - Continue PPI equivalent while IP - Zofran PRN Obesity Diabetes Hx of Gastric Band 2009 Hx Sleeve Gastrectomy 2017 Home Meds: Naltrexone 50 mg + Buproprion A1c this admission 7.7 Patient was planned to start mounjaro, however insurance company denied use for weight loss Plan: - Hypoglycemia protocol - ISS + POCT FS ACHS Subclinical Hypothyroidism Home Meds: n.a Plan: TSH 4.75, T4 is 1.26. NTD Microcytic Anemia Hg 9.8, MCV 78, MCH 23.6, RDW 17% Plan: - Obtain Iron studies - Consider IV iron during admission Vitals: 05/24/25 2336 97.1 (36.2) 54 Abnormal 16 136/67 100 room air (none) 05/24/25 2102 -- 63 16 128/61 97 room air (none) 05/24/25 2013 -- -- -- -- 98 room air (none) 05/24/25 1920 97.3 (36.3) -- 14 -- 98 room air (none) 05/24/25 1700 -- 58 Abnormal -- 127/62 -- room air (none) 05/24/25 1630 -- 58 Abnormal -- 131/65 -- room air (none) 05/24/25 1600 -- 57 Abnormal -- 127/68 -- room air (none) 05/24/25 1530 -- 56 Abnormal -- 119/63 -- -- 05/24/25 1500 -- 56 Abnormal -- -- 99 room air (none) 05/24/25 1457 98.6 (37) 56 Abnormal 18 116/57 Abnormal 99 -- 05/24/25 1430 -- 61 14 108/58 Abnormal 98 room air (none) 05/24/25 1415 -- 60 16 118/63 98 room air (none) 05/24/25 1400 -- 58 Abnormal 14 124/59 98 room air (none) 05/24/25 1345 -- 57 Abnormal 17 126/68 100 nasal cannula 05/24/25 1300 -- 56 Abnormal 20 100/53 Abnormal 99 nasal cannula 05/24/25 1230 -- 56 Abnormal 18 108/55 Abnormal 99 nasal cannula 05/24/25 1200 -- 61 17 134/65 99 nasal cannula 05/24/25 1145 -- 61 14 118/63 100 nasal cannula 05/24/25 1130 -- 52 Abnormal 14 130/68 100 nasal cannula 05/24/25 1120 -- 55 Abnormal 9 Abnormal 135/67 100 room air (none) 05/24/25 1116 -- 55 Abnormal 13 118/65 100 room air (none) 05/24/25 1031 -- 56 Abnormal 17 132/72 100 room air (none) 05/24/25 0906 97.3 (36.3) 58 Abnormal 18 108/74 96 room air (none) 05/24/25 07:28:01 97.1 (36.2) 64 18 105/55 Abnormal 98 room air (none) 05/24/25 0501 -- 56 Abnormal 17 121/69 99 room air (none) 05/24/25 0151 97.5 (36.4) 55 Abnormal 16 103/60 97 room air (none) Meds/Treatments: ASA PO, Lipitor 80mg PO, Vibramycin 100mg PO, Lopressor 12.5mg PO Q12H, Brilinta 90mg PO BID, NS 234.9 ml/hr IV, Heparin IV Cont Labs/Diagnostics: H/H: 9.6/ 32.1 TROP T: 93 DELTA CHANGE: 43 PROBNP: 2,273 CARDIAC CATH: Access with IVUS guided PCI of the distal RCA with a 2.75 mm x 28 mm Synergy XD ZORAIDA that was postdilated with a 3 mm NC balloon. Normal LVEDP. No gradient on pullback. Bed Type: Telemetry D/C Plan: Ongoing care Sign Laxmi Hay RN 05/25/2025 8:24 AM * Plan of Care - Juana Peters RN - 05/25/2025 6:46 AM EDT Pt AXOX4. C/o some SOB at start of shift. RT called and PRN duoneb was given with good effect. RRA CDI, no c/o pain. Plan for echo today and d/c. Juana Peters 05/25/2025 6:46 AM * Plan of Care - Jen Blevins RN - 05/24/2025 9:11 PM EDT Patient is alert and oriented X4, SR on telemetry, on room air. Pt admitted to floor from cathodic protection technician post procedure. Pt's radial access band removed by cathodic protection technician staff before arriving to floor. RRA site CDI, no bleeding or hematoma. Plan is for echo and to discharge. Pt's family at bedside post cath. Jen blevins 05/24/2025 9:11 PM * Assessment & Plan Note - Debra Gallardo MD - 05/24/2025 4:36 PM EDT Associated Problem(s): NSTEMI (non-ST elevated myocardial infarction) (HCC) At OSH patient noted to have rise in trops from 31 --> 797, repeat in our ED 136 -->93. In addition TTE showed newly reduced EF of 35% and imaging with findings consistent with Takutsubo. Patient denies any recent significant stressors in her life, however was recently treated for suspected asthma exacerbation. Plan: - Cath this AM - ear mold laboratory technician diet protocol (clears past midnight) - Continue heparin gtt - Start metoprolol 12.5 tartrate BD (hold for hypotension/bradycardia) - Obtain lipid panel - Start high intensity statin - Start ASA 81 - Sublingual nitroglycerin for chest pain - Obtain proBNP * Plan of Care - Aleksandra Marti RN - 05/24/2025 3:53 PM EDT Initial Case Management Care Plan Note Assessment completed with patient and and adult daughter @ bedside, medical record review and discussion with clinical team. CC met with the patient using social distancing. Provided a Case Coordination packet with contact information, CC pamphlet and Your Next Step: Care Outside the Hospital brochure to the patient Transfer from [facility] - [facility] - cardiac cath completed PMH: obesity status post prior gastric sleeve and band procedure Summary: Resides w/ and 41 yo son in rented [place], steps 3 steps to enter, stays on first level. States is independent w/ ADL's - does use a rw, states drives and her drives, denies issues getting groceries or medications. Anticipated transition plan: Home w/ family support - may stay at daughter's house at [place] Caregiver/responsible person supports: family supportive PCP: Updated in Epic-Type Provider name Dr. Gt Prescott Anticipated transportation: family Referrals made: None Barriers to discharge: cardiac clearance Aleksandra Marti 05/24/2025 3:53 PM Problem: Adult Inpatient Plan of Care Goal: Readiness for Transition of Care Intervention: Mutually Develop Transition Plan Flowsheets (Taken 05/24/2025 7284) Anticipated Changes Related to Illness: none Equipment Currently Used at Home: walker, rolling Equipment Needed After Discharge: none Readmission Within the Last 30 Days: no previous admission in last 30 days Transportation Anticipated: family or friend will provide Transportation Concerns: none Concerns to be Addressed: denies needs/concerns at this time Patient/Family Anticipated Services at Transition: outpatient care Patient/Family Anticipates Transition to: home with family * Medical Student - ROYA Bower STUDENT - 05/24/2025 7:31 AM EDT Images from the original note were not included. Interventional Cardiology / Cardiac Catheterization History and Physical Consult Date of Consult: 05/24/2025 Patient's Primary Care Provider: Provider Not In System Physician Requesting Consult: Gabrielle Rosen MD Reason for Consultation: Chest pain Name: Codie Fernández Age: 55 y.o. Sex: female Race and Ethnicity Race Other Ethnic Group or Active Problems: -NSTEMI Allergies: Latex. Denies any shellfish, shell fish containing products or contrast dye allergies. Assessment & Plan Assessment Codie Fernández is a 55- year-old female with a PMH of asthma, (HTN, PE, SPARKLE on CPAP,Obesity s/p gastric banding & sleeve noted elsewhere in chart, patient denies any other history outside of asthma and knee/shoulder repair surgeries), who came in with c/o abdominal pain transitioned to substernal chest pain. Patient transferred from outside hospital for concern of new [facility], [facility] & NSTEMI management. Planned Cardiac Cath for further evaluation. Plan: - Proceed with Cardiac Catheterization. -Continue Heparin Infusion until Angiogram is done. - On Aspirin 81mg Daily. I have personally reviewed with the patient, the medical history, labs, previous testing and testing results consisting of EKG), and have requested/obtained records to review. ClCl: 77 Risk of any post PCI MAGALIE 7.5%; risk of post PCI MAGALIE requiring dialysis 0.04% Maximum Predicted Contrast 284.9 1. Start IV Hydration. Clear liquid diet ok, no solids. 2. Please hold nephrotoxic medications pre procedure. 3. The patient is taking anticoagulation Heparin gtt Last dose: Currently infusing. 4. In the event patient needs transfusion, patient agreeable to receive blood transfusion. The reason for the procedure, the alternatives (medical therapy, other non- invasive imaging tests) to the procedure and the risks were discussed. The details of the procedure were discussed, benefitsand risks explained include approximately a 1% risk of major complications including , heart attack, stroke, and bleeding/blood transfusion, vascular complications/perforation, loss of limb, need for emergency bypass or vascular surgery, allergic reactions, adverse reaction to contrast or sedation, emergency defibrillation, endotracheal intubation, renal insufficiency or failure, small risk of temporary or permanent hemodialysis, etc. In the setting of a PCI, the need for prolonged dual antiplatelet therapy with heightened risk of bleeding and needing to defer elective surgery was all discussed with the patient. All questions answered, the patient wishes to proceed. Please contact the cathodic protection technician if the patient develops intractable chest pain, clinical instability, or dynamic ECG changes. Total amount of time spent on visit: 60 min Subjective Chief Complaint : Chest pain History of Present Illness Codie Fernández is a 55- year-old female with a PMH of asthma, (HTN, PE, SPARKLE on CPAP,Obesity s/p gastric banding & sleeve noted elsewhere in chart, patient denies any other history outside of asthma and knee/shoulder repair surgeries), who came in with c/o abdominal pain transitioned to substernal chest pain.Transferred from outside hospital to [facility] due to rising Troponins 31-----> 79. Additional testing at outside hospital showed newly reduced EF of 35%, imaging and findings consistent with Cardiomyopathy. Per patient, she had a 3 day history of N/V with diffused abdominal pain which transitioned to substernal non radiating stabbing chest pain. Pain , was constant, without any aggravating or relieving factors. She stated she has never had any pain like this before. She currently endorses orthopnea when laying flat that is tolerable & SOB with exertion, relieved with rest (newsince being hospitalized). Does not currently endorse N/V chest pain/discomfort, fevers or chills.Patient denies any emotional stressors, endorses having a recent asthma exacerbation with ? PNA one week prior, treated with prednisone/doxycycline per patient. Past History No past medical history on file. No past surgical history on file. No family history on file. Social History Tobacco Use Smoking status: Not on file Smokeless tobacco: Not on file Substance Use Topics Alcohol use: Not on file Review of Systems Review of Systems Constitutional: Negative for chills and fatigue. Respiratory: Positive for shortness of breath. Cardiovascular: Positive for leg swelling. Gastrointestinal: Negative for nausea and vomiting. Objective Medications Current Outpatient Medications Medication Instructions Advair HFA 230-21 MCG/ACT inhaler 1 puff, Inhalation, 2 times daily buPROPion (WELLBUTRIN XL) 300 mg, Every morning calcium citrate (CALCITRATE) 950 (200 Ca) MG tablet 1 tablet, Oral, Daily Combivent Respimat 20-100 MCG/ACT inhaler 1 puff, Inhalation, 4 times daily D 1000 1,000 Units, Daily Denta 5000 Plus 1.1 % Cream APPLY A PEA SIZE AMOUNT ON TOOTHBRUSH, BRUSH TEETH THREE TIMES A DAY doxycycline (VIBRA-TABS) 100 mg, 2 times daily folic acid (FOLVITE) 1,000 mcg, Oral, Daily hydrOXYzine HCl (ATARAX) 25 mg, Every 8 hours PRN ibuprofen (MOTRIN) 800 mg, Oral, Every 8 hours PRN ipratropium (ATROVENT) 0.5 mg, 4 times daily PRN montelukast (SINGULAIR) 10 mg, Oral, Nightly naltrexone (REVIA) 50 mg, Oral, Daily OMEprazole (PRILOSEC) 40 mg, Oral, Daily before breakfast predniSONE (DELTASONE) 20 mg, 2 times daily Physical Exam Vitals: 05/23/25 2222 05/24/25 0151 05/24/25 0501 05/24/25 0728 BP: 138/61 103/60 121/69 (!) 105/55 BP Location: Left arm Left arm Right arm Right arm Patient Position: Lying Lying Lying Lying Pulse: 63 (!) 55 (!) 56 64 Resp: 16 16 17 18 Temp: 97.5 ??F (36.4 ??C) 97.1 ??F (36.2 ??C) TempSrc: Tympanic Tympanic SpO2: 100% 97% 99% 98% Weight: No intake or output data in the 24 hours ending 05/24/25 0731 Physical Exam Constitutional: Appearance: Normal appearance. HENT: Head: Normocephalic and atraumatic. Mouth/Throat: Mouth: Mucous membranes are moist. Eyes: Extraocular Movements: Extraocular movements intact. Pupils: Pupils are equal, round, and reactive to light. Neck: Vascular: No JVD. Cardiovascular: Rate and Rhythm: Normal rate. Chest Wall: PMI is not displaced. Pulses: Normal pulses. Heart sounds: Normal heart sounds. Pulmonary: Effort: Pulmonary effort is normal. Breath sounds: Normal breath sounds. Abdominal: General: Bowel sounds are normal. Palpations: Abdomen is soft. Tenderness: There is no abdominal tenderness. Musculoskeletal: Cervical back: Normal range of motion. Right lower le+ Pitting Edema present. Left lower le+ Pitting Edema present. Skin: Capillary Refill: Capillary refill takes less than 2 seconds. Neurological: General: No focal deficit present. Mental Status: She is alert and oriented to person, place, and time. Mental status is at baseline. Psychiatric: Mood and Affect: Mood normal. Mallampati Score: I (soft palate, uvula, fauces, and tonsillar pillars visible) ASA PHYSICAL STATUS CLASSIFICATION SYSTEM ASA 1 - Normal health patient Relevant data reviewed: Labs, Notes, Meds Lab Results Component Value Date/Time HSTNT 93 () 05/24/2025 12:17 AM EK05/24/2025: 05/23/25 Component Name Reference Units Result Value Ventricular rate BPM 69 Atrial rate BPM 69 P-R interval ms 162 QRS duration ms 78 Q-T interval ms 446 QTC calculation (Bazett) ms 478 P axis degrees 27 R axis degrees 8 T axis degrees 18 Narrative & Impression Normal sinus rhythm Septal infarct , age undetermined Abnormal ECG No previous ECGs available Labs: HS Trop Lab Results Component Value Date/Time HSTNT 93 () 05/24/2025 12:17 AM Latest Reference Range & Units 05/24/25 07:47 Anion Gap 7 - 17 9 BUN 8 - 21 mg/dL 13 Creatinine 0.40 - 1.10 mg/dL 0.99 Bun / Creat Ratio 10.0 - 25.0 Ratio 13 Glucose 65 - 99 mg/dL 80 Calcium 8.7 - 10.5 mg/dL 8.7 eGFR >59 67 Folate >7.2 ng/mL 17.9 Vitamin B12 243 - 894 pg/mL 346 Total Iron Binding Capacity 100 - 400 ug/dL 287 UIBC 112 - 346 ug/dL 182 Iron 59 - 151 ug/dL 105 Iron Sat 20 - 50 % 37 Ferritin 30 - 400 ug/L 20 (L) (L): Data is abnormally low Latest Reference Range & Units 05/24/25 00:17 High Sensitivity Troponin T <15 ng/L 93 (HH) Delta (Change) <3 43 (H) proBNP, N-terminal <125 pg/mL 2,273 (H) (): Data is critically high (H): Data is abnormally high Latest Reference Range & Units 05/24/25 07:47 Cholesterol <200 mg/dL 183 Triglycerides <150 mg/dL 62 HDL >39 mg/dL 79 Estimated LDL <130 mg/dL 92 CHOL/HDL Ratio 0.0 - 5.0 Ratio 2.3 Latest Reference Range & Units 05/24/25 07:47 White Blood Cell Count 4.0 - 11.0 Thou/uL 7.1 Red Blood Cell Count 4.00 - 5.40 Mil/uL 3.99 (L) Hemoglobin 11.7 - 15.7 g/dL 9.6 (L) Hematocrit 35.0 - 47.0 % 32.1 (L) MCV 80 - 100 fL 81 MCH 27.0 - 31.0 pg 24.1 (L) MCHC 30.0 - 36.0 g/dL 29.9 (L) RDW 11.5 - 14.5 % 17.5 (H) Platelet Count 150 - 450 Thou/uL 327 MPV 7.5 - 12.5 fL 9.7 (L): Data is abnormally low (H): Data is abnormally high Imaging Studies: None Echo done at previous outside hospital. Time spent at the bedside reviewing previous records, performing H&P, physical assessment, and educated on cardiac Executive Vice President And Chief Operating Officer procedure was approximately 60 minutes The following information is collected for participation in the [employer] CATH/PCI Registry (ACCNCDR) and is used for submission of data and may not be entirely consistent with the clinical evaluation. ACC-NCDR CathPCI V5 Collection Form History and Risk Factors Hypertension: No Dyslipidemia: No Diabetes mellitus: No Diabetes therapy: None Hx of CAD: Yes Prior NC: No Prior CABG: No Prior diagnostic cath: No Prior PCI: No Currently on dialysis: No Cerebrovascular disease: No Peripheral arterial disease: No Chronic lung disease: Yes Tobacco use: Never Clinical frailty score: Well Pre-Procedure Information Prior heart failure: No Electrocardiac assessment method: ECG The assessment result was abnormal. - No new antiarrhythmic therapy was received prior to evaluation within the cathodic protection technician. Abnormal assessment findings include: other electrocardiac abnormality T wave flattening in inferior leads, SB. Recent stress test performed: No Cardiac CTA performed: No Calcium score assessed: No LVEF assessed: No Indications and Presentation Indication(s) for cathodic protection technician visit: ACS less than or equal to 24 hours, suspected CAD and cardiomyopathy Chest pain symptom assessment: Atypical angina Cardiovascular instability: No - Ventricular support was not required. PCI Procedure Staged PCI: No Pre-Procedure Mediations Aspirin: Yes COLLEEN Inhibitor: No Angiotensin II receptor elier: No Beta elier: Contraindication - Not on beta elier, bradycardic Calcium channel blocking agent: No Long acting nitrate: No Non-statin: No Ranolazine: No Sacubitril and valsartan: No Antiarrhythmic agent other: No Kexin type 9 inhibitor: No Sign: Danielle Vasquez MED STUDENT 05/24/2025 7:31 AM Cosigned by Violet Arthur MD at 05/25/2025 5:05 PM EDT * ACP (Advance Care Planning) - July Rosen MD - 05/23/2025 9:48 PM EDT Discussed CODE STATUS with patient at bedsides. Patient wishes to be full code at this time July Rosen MD Internal Medicine, PGY-2 Available on [place]-[employer] and [employer] * Plan of Care - Lizzie Alexander PA-C - 05/23/2025 3:25 PM EDT ACS-NSTEMI TRANSFER NOTE SITUATION I was called by provider Daryl Flanagan PA-C from [facility] in regards to Codie Fernández to be transferred to the [facility] for ACS- NSTEMI TRANSFER. They are requesting the transfer to [facility] for procedural intervention which is not available in their facility. Patient was seen in the Outside hospital/ clinic for abdominal pain, N/V/D BACKGROUND Past Medical History: Codie Fernández has no past medical history on file. Past Surgical History: Codie Fernández has no past surgical history on file. Allergies: Codie Fernández has no allergies on file. ASSESSMENT Codie Fenrández is a 55-year-old female with past medical history of HTN, PE, and asthma who presented to [facility] today with abdominal pain, nausea, vomiting, and diarrhea. EKG on presentation sinus bradycardia with no acute ischemic changes per sending provider. CTA negative for PE,abdominal CT showed concern for pancreatitis and colitis. Labs significant for high- sensitivity troponin 31-->797, and normal lipase. Patient was loaded with aspirin and started on heparin prior to transfer. Echocardiogram at outside hospital showed LVEF 35%, full report pending. This provider contacted echo department at outside hospital who will be sending disc along with patient upon transfer. Patient passed p.o. trial, reportedly low concern for pancreatitis/colitis. She received Benadryl, Haldol, and Zofran with resolution of abdominal pain and is currently resting comfortably at thistime. Repeat EKG normal sinus with no acute ischemic changes. Reportedly vitally stable, not overtly overloaded on exam per sending provider with proBNP pending. Plan for ED to ED transfer for or further workup of acute HFrEF and NSTEMI. Patient is being transferred due to suspected ACS. Contact [facility] on arrival -Troponin at OSH: 31--797 -ECG Findings at OSH: Normal sinus rhythm with no acute ischemic changes per sending provider -Active Chest Pain: No -Antianginals: None -On Heparin Infusion at OSH: Yes -Received Aspirin 324 mg at OSH within past 24hrs: Yes -On Beta elier at OSH: No Patient has been accepted for ED to ED transfer for further workup and triage by ED ACS-NSTEMI RECOMMENDATIONS Obtain STAT ECG, serial troponin x2, place on telemetry and evaluate for chest pain or anginal equivalent as soon as patient arrives to [facility]. Contact the above mentioned group(s) on-call for consultation and disposition. 3. ACS patients should be admitted to a Cardiology bed location. 4. If having refractory or recurrent chest pain, repeat ECG (to assess for progression to STEMI), troponin, need for escalation of antianginals (consider IV nitroglycerin) and contact on-call Cardiology and Interventional Cardiology to assess if patient needs urgent coronary intervention or escalation in level of care. Patient requirements: Telemetry: YES Isolation: none Precautions: none Private Room: No Special Needs: none Lizzie Alexander PA-C Date: 05/23/2025 Time: 3:27 PM documented in this encounter Plan of Treatment Scheduled Orders Name Type Priority Associated Diagnoses Orde r Schedule 10 Min ECG 12 lead ECG ED Critical Once for 1 Occurrences starting 05/23/2025 until 05/23/2025 ECG 12 lead - post PCI procedure on arrival to floor ECG Routine Once for 1 Occur rences starting 05/24/2025 until 05/24/2025 Scheduled Referrals Name Type Priority Associated Diagnoses Order Schedule Amb Referral to Cardiac Rehabilitation Outpatient Referral Routine NSTEMI (non-ST elevated myocardial infarction) ([facility]) Ordered: 05/24/2025 Amb Referral to Cardiac Rehabilitation Outpatient Referral Routine NSTEMI (non-ST elevated myocardial infarction) ([facility]) Ordered: 05/26/2025 documented as of this encounter Procedures Procedure Name Priority Date/Time Associated Diagnosis Comments POCT GLUCOSE, FINGERSTICK (CHARGE) Routine 05/26/2025 12:01 PM EDT ECHOCARDIOGRAM (TTE) COMPREHENSIVE (CONTRAST PRN) Routine 05/26/2025 10:25 AM EDT POCT GLUCOSE, FINGERSTICK (CHARGE) Routine 05/26/2025 8:10 AM EDT POCT GLUCOSE, FINGERSTICK (CHARGE) Routine 05/25/2025 9:19 PM EDT POCT GLUCOSE, FINGERSTICK (CHARGE) Routine 05/25/2025 5:07 PM EDT POCT GLUCOSE, FINGERSTICK (CHARGE) Routine 05/25/2025 12:15 PM EDT POCT GLUCOSE, FINGERSTICK (CHARGE) Routine 05/25/2025 8:35 AM EDT COMPLETE BLOOD COUNT, WITH DIFFERENTIAL Routine 05/25/2025 7:55 AM EDT COMPREHENSIVE METABOLIC PANEL Routine 05/25/2025 7:55 AM EDT POCT GLUCOSE, FINGERSTICK (CHARGE) Routine 05/25/2025 2:30 AM EDT POCT GLUCOSE, FINGERSTICK (CHARGE) Routine 05/25/2025 2:02 AM EDT POCT GLUCOSE, FINGERSTICK (CHARGE) Routine 05/24/2025 9:00 PM EDT POCT GLUCOSE, FINGERSTICK (CHARGE) Routine 05/24/2025 4:56 PM EDT POCT GLUCOSE, FINGERSTICK (CHARGE) Routine 05/24/2025 1:43 PM EDT ISTAT ACTIVATED CLOTTING TIME, CELITE (CHARGE) Routine 05/24/2025 11:23 AM EDT CARDIAC CATHETERIZATION Routine 05/24/2025 11:16 AM EDT CARDIAC CATHETERIZATION Routine 05/24/2025 11:16 AM EDT CARDIAC CATHETERIZATION Routine 05/24/2025 11:16 AM EDT ISTAT ACTIVATED CLOTTING TIME, CELITE (CHARGE) Routine 05/24/2025 11:04 AM EDT ABO CONFIRMATION Routine 05/24/2025 11:0 0 AM EDT TYPE AND SCREEN Routine 05/24/2025 10:45 AM EDT IRON AND TOTAL IRON BINDING CAPACITY STAT 05/24/2025 7:47 AM EDT HEPARIN ASSAY (ANTI-XA) STAT 05/24/2025 7:47 AM EDT COMPLETE BLOOD COUNT, WITHOUT DIFFERENTIAL STAT 05/24/2025 7:47 AM EDT T4, FREE STAT 05/24/2025 7:47 AM EDT FOLATE LEVEL STAT 05/24/2025 7:47 AM EDT FERRITIN STAT 05/24/2025 7:47 AM EDT VITAMIN B12 STAT 05/24/2025 7:47 AM EDT LIPID PANEL Routine 05/24/2025 7:47 AM EDT BASIC METABOLIC PANEL STAT 05/24/2025 7:47 AM EDT POCT GLUCOSE, FINGERSTICK (CHARGE) Routine 05/24/2025 7:21 AM EDT HEPARIN ASSAY (ANTI-XA) STAT 05/24/2025 2:40 AM EDT HIGH SENSITIVITY TROPONIN T CARD 05/24/2025 12:17 AM EDT PROBNP, N-TERMINAL CARD 05/24/2025 12 :17 AM EDT T4, FREE CARD 05/24/2025 12:17 AM EDT ED PERFORMED US CARDIAC LIMITED STAT 05/23/2025 8:44 PM EDT Chest pain, unspecified HIGH SENSITIVITY TROPONIN T Routine 05/23/2025 6:19 PM EDT HEMOGLOBIN A1C WITH ESTIMATED AVERAGE GLUCOSE STAT 05/23/2025 6:19 PM EDT COMPLETE BLOOD COUNT, WITH DIFFERENTIAL STAT 05/23/2025 6:19 PM EDT PARTIAL THROMBOPLASTIN TIME (PTT) STAT 05/23/2025 6:19 PM EDT PROTIME-INR STAT 05/23/2025 6:19 PM EDT HEPARIN ASSAY (ANTI-XA) Routine 05/23/2025 6:19 PM EDT TSH, HIGHLY SENSITIVE STAT 05/23/2025 6:19 PM EDT MAGNESIUM STAT 05/23/2025 6:19 PM EDT COMPREHENSIVE METABOLIC PANEL STAT 05/23/2025 6:19 PM EDT ECG 12-LEAD ED Critical 05/23/2025 5:25 PM EDT documented in this encounter Results * POCT Glucose, Fingerstick (05/26/2025 12:01 PM EDT) POC Glucose 89 65 - 99 mg/dL 05/26/2025 12:02 PM EDT Blood specimen / Unknown 05/26/2025 12:01 PM EDT 05/26/2025 12:02 PM EDT us Zuhair Laura MD POINT OF CARE TEST ORDERABLES Fi nal Result HOSPITAL LAB See Below * ECHOCARDIOGRAM COMPREHENSIVE WITH CONTRAST (05/26/2025 10:25 AM EDT) LV seay vol 3D 126.0 mL LV Diastolic Volume 134 mL LV sys vol 3D 43.0 mL LV Systolic Volume 45 mL IVS (F:0.6-0.9, M:0.6-1.0) 1.0 cm IVS Mean (F:0.6-0.9, M:0.6-1.0) 1.0 cm LVIDD (F:3.8-5.2, M:4.2-5.8) 4.8 cm LVIDD Mean (F:3.8-5.2, M:4.2-5.8) 4.8 cm LVIDS (F:2.2-3.5, M:2.5-4.0) 3.3 cm LVIDS (F:2.2-3.5, M:2.5-4.0) 3.3 cm LVOT diameter 2.3 cm LVOT diameter mean 2.3 cm LVOT mn grad mean 2.0 mmHg LVOT VTI MEAN 21.1 cm LVOT mn grad 2.0 mmHg LVOT VTI 21.1 cm LVOT peak roxanna 1.1 m/s LVOT peak roxanna mean 1.1 m/s PW (F:0.6-0.9, M:0.6-1.0) 1.0 cm PW Mean (F:0.6-0.9, M:0.6-1.0) 1.0 cm MV E' Lateral Velocity 7.40 cm/s MV E' Lateral Velocity Mean 7.40 cm/s MV E' Septal Velocity 5.66 cm/s MV E' Septal Velocity Mean 5.66 cm/s LA sup-inf (apical 2-ch view) 5.52 cm LA volume 54.5 mL RA area 13.2 cm2 RA 2D Volume 33.4 mL Ao peak roxanna 1.1 m/s Ao peak roxanna mean 1.1 m/s Sinuses of Valsalva 3.6 cm Sinuses of Valsalva Mean 3.6 cm Ascending aorta 3.3 cm Ascending aorta mean 3.3 cm E wave decelartion time 345 ms E wave decelartion time mean 345 ms MV stenosis pressure 1/2 time mean 101 ms MV stenosis pressure 1/2 time 101 ms MV Peak A-Wave 79.1 cm/s MV Peak A-Wave Mean 79.1 cm/s MV Peak E-Wave 63.4 cm/s MV Peak E-Wave Mean 63.4 cm/s Pulmonic Valve Regurgitant End Diastolic Velocity 0.5 m/s Pulmonic Valve Regurgitant End Diastolic Velocity Mean 0.6 m/s PV PEAK VELOCITY 1.1 m/s PV PEAK VELOCITY Mean 0.9 m/s RVOT peak VTI Mean 15.2 cm RVOT peak VTI 15.2 cm RV Free wall pk S' 18.0 cm/s RV Free wall pk S' Mean 18.0 cm/s Tapse 2.1 cm Tapse Mean 2.1 cm Heart Rate 62 bpm BP Systolic 135 mmHg BP Diastolic 66 mmHg Height 61.00 inches Weight 168.00 lbs LV Mass Index (F:43-95, M:49-115) 97.0 g/m2 LA Volume Index (16-34) 31.1 mL/m2 LV Diastolic Volume Index (F:29-61, M:35-75) 76.4 mL/m2 LV Systolic Volume Index (F:8-24, M:11-31) 25.7 mL/m2 E/E' ratio 8.57 AV peak gradient 4.8 mmHg LVOT stroke volume 88 mL LVOT area 4.2 cm2 E/A ratio 0.80 MV valve area p 1/2 method 2.18 cm2 AV LVOT peak gradient 4.8 mmHg SVI 48 mL/m2 Ascending aorta Index 1.9 cm/m2 Sinuses of Valsalva Index 2.1 cm/m2 EF - 3D Echo 66 % LV mass 170.2 g Hernandes BP EF (55-75) 66 % LA Volume Index 19.0 mL/m2 E/E' Average 9.9 E/E' Septal 11.2 E/E' Lateral 8.6 LVOT SI 49.95 mL/m2 LV RWT 0.42 Left Ventricular Cardiac Index 3.1 L/min/m2 Left Ventricular Cardiac Output 5.4 L/min BSA 1.75 m2 PV peak gradient 4.8 mmHg Est. RA pres 3 mmHg IVC Inspiration Diameter 0.0 cm IVC Expiration Diameter 1.9 cm IVCPERCENTCOLLAPSE 1.00 % PA EDP 4.0 mmHg GLS 18.3 % Anatomical Region Laterality Modality Heart Ultrasound Narrative 05/26/2025 11:03 AM EDT The left ventricle is moderately dilated. Left ventricular systolic function is normal. The quantitative EF is 66% by 3D imaging, and 66% by 2D Hernandes biplane. Global longitudinal strain is -18.3%. There is hypokinesis of the mid to basal inferoseptum and the basal inferior segments. Diastolic function is indeterminate. Right ventricular systolic function is normal. There are no hemodynamically significant valvular abnormalities noted. There is a minimal pericardial effusion.There is a left pleural effusion. There is no previous study for comparison in our system. Technical Details Definity contrast was used during the study. Overall the study quality was adequate. The study was technically difficult due to patient's body habitus. 3D echocardiographic imaging of left ventricle structure and function was performed demonstrating the following study findings. Left Ventricle The left ventricle is moderately dilated. Wall thickness is normal. Left ventricular systolic function is normal. The quantitative EF is 66% by 3D imaging, and 66% by 2D Hernandes biplane. Global longitudinal strain is -18.3%. There is hypokinesis of the mid to basal inferoseptum and the basal inferior segments. Diastolic function is indeterminate. Cardiac output is normal. The Doppler derived cardiac output is 5.4 L/min and cardiac index is 3.1 L/min/m2. Right Ventricle Right ventricle was not well visualized. Right ventricular systolic function is normal. Left Atrium Left atrial size is normal. Right Atrium Right atrial size is normal. Based on IVC diameter and collapse, right atrial pressure is estimated to be normal (3 mmHg). Mitral Valve The mitral valve is structurally normal. There is trace mitral regurgitation. Tricuspid Valve The tricuspid valve is structurally normal. There is no tricuspid regurgitation. The absence of sufficient tricuspid regurgitation precludes estimation of right ventricular systolic pressure. Aortic Valve The aortic valve is tricuspid. There is no aortic regurgitation or stenosis. Pulmonic Valve The pulmonic valve was not well visualized. There is mild pulmonic regurgitation. Ascending Aorta The aortic root and ascending aorta are normal in dimension. Pericardium There is a minimal pericardial effusion.There is a left pleural effusion. Prior Study There is no previous study for comparison in our system. Wall Scoring Baseline Score Index: 2.00 The following segments are hypokinetic: basal inferoseptal, basal inferior and mid inferoseptal. Rajinder Davis MD CV ECHO ORDERABLES Final Result * POCT Glucose, Fingerstick (05/26/2025 8:10 AM EDT) POC Glucose 81 65 - 99 mg/dL 05/26/2025 8:10 AM EDT Blood specimen / Unknown 05/26/2025 8:10 AM EDT 05/26/2025 8:11 AM EDT Zuhair Laura MD POINT OF CARE TEST ORDERABLES Fi nal Result HOSPITAL LAB See Below * (ABNORMAL) POCT Glucose, Fingerstick (05/25/2025 9:19 PM EDT) POC Glucose 111(H) 65 - 99 mg/dL 05/25/2025 9:19 PM EDT Blood specimen / Unknown 05/25/2025 9:19 PM EDT 05/25/2025 9:20 PM EDT Zuhair Laura MD POINT OF CARE TEST ORDERABLES Fi nal Result HOSPITAL LAB See Below * POCT Glucose, Fingerstick (05/25/2025 5:07 PM EDT) POC Glucose 82 65 - 99 mg/dL 05/25/2025 5:09 PM EDT Blood specimen / Unknown 05/25/2025 5:07 PM EDT 05/25/2025 5:09 PM EDT us Zuhair Laura MD POINT OF CARE TEST ORDERABLES Fi nal Result Performing Organization Address [facility] LAB See Below * POCT Glucose, Fingerstick (05/25/2025 12:15 PM EDT) POC Glucose 87 65 - 99 mg/dL 05/25/2025 12:16 PM EDT Blood specimen / Unknown 05/25/2025 12:15 PM EDT 05/25/2025 12:16 PM EDT us Zuhair Laura MD POINT OF CARE TEST ORDERABLES Fi nal Result Performing Organization Address [facility] LAB See Below * (ABNORMAL) POCT Glucose, Fingerstick (05/25/2025 8:35 AM EDT) POC Glucose 114(H) 65 - 99 mg/dL 05/25/2025 8:36 AM EDT Blood specimen / Unknown 05/25/2025 8:35 AM EDT 05/25/2025 8:36 AM EDT us Zuhair Laura MD POINT OF CARE TEST ORDERABLES Fi nal Result Performing Organization Address [facility] LAB See Below * (ABNORMAL) Comprehensive Metabolic Panel (05/25/2025 7:55 AM EDT) Glucose 115(H) 65 - 99 mg/dL 05/25/2025 10:11 AM EDT [facility] Comment:Fasting: <100 mg/dL, Non-Fasting: <200 mg/dL (ADA 2005) Blood Urea Nitrogen (BUN) 14 8 - 21 mg/dL 05/25/2025 10:11 AM EDT [facility] Creatinine 0.82 0.40 - 1.10 mg/dL 05/25/2025 10:11 AM [facility] eGFR 83 >59 05/25/2025 10:11 AM [facility] Comment:CKD-EPI (2020) in mL /min/1.73 sq meters. Sodium 137 136 - 145 mmol/L 05/25/2025 10:11 AM [facility] Potassium 4.1 3.4 - 5.3 mmol/L 05/25/2025 10:11 AM [facility] Comment:Specimen hemolyzed. Results may be artifactually elevated. Chloride 101 98 - 107 mmol/L 05/25/2025 10:11 AM [facility] CO2 24 22 - 33 mmol/L 05/25/2025 10:11 AM [facility] Calcium 8.9 8.7 - 10.5 mg/dL 05/25/2025 10:11 AM [facility] Alkaline Phosphatase 80 32 - 122 U/L 05/25/2025 10:11 AM [facility] Aspartate Aminotrans (AST) 36 10 - 50 U/L 05/25/2025 10:11 AM [facility] Comment:Specimen hemolyzed. Results may be artifactually elevated. Alanine Aminotrans (ALT) 15 10 - 50 U/L 05/25/2025 10:11 AM [facility] Bilirubin, Total 0.4 0.2 - 1.0 mg/dL 05/25/2025 10:11 AM [facility] Protein, Total 6.4 6.3 - 8.3 g/dL 05/25/2025 10:11 AM [facility] Albumin 3.4(L) 3.5 - 5.0 g/dL 05/25/2025 10:11 AM [facility] BUN/Creatinine Ratio 17 10.0 - 25.0 Ratio 05/25/2025 10:11 AM [facility] Globulin 3.0 1.5 - 3.9 g/dL 05/25/2025 10:11 AM [facility] Albumin/Globulin Ratio 1.1 1.0 - 3.0 Ratio 05/25/2025 10:11 AM [facility] Anion Gap 12 7 - 17 05/25/2025 10:11 AM [facility] Blood Blood specimen / Unknown 05/25/2025 7:55 AM EDT 05/25/2025 9:14 AM EDT Rajinder Davis MD LAB BLOOD ORDERABLES June channing Result [address] [address], [address] [address] * (ABNORMAL) Complete Blood Count, with Differential (05/25/2025 7:55 AM EDT) White Blood Cell Count 8.7 4.0 - 11.0 Thou/uL 05/25/2025 9:48 AM [facility] Platelet Count 386 150 - 450 Thou/uL 05/25/2025 9:48 AM [facility] Hemoglobin 9.9(L) 11.7 - 15.7 g/dL 05/25/2025 9:48 AM [facility] Hematocrit 33.8(L) 35.0 - 47.0 % 05/25/2025 9:48 AM [facility] Red Blood Cell Count 4.21 4.00 - 5.40 Mil/uL 05/25/2025 9:48 AM [facility] MCV 80 80 - 100 fL 05/25/2025 9:48 AM [facility] MCH 23.5(L) 27.0 - 31.0 pg 05/25/2025 9:48 AM [facility] MCHC 29.3(L) 30.0 - 36.0 g/dL 05/25/2025 9:48 AM [facility] RDW 17.8(H) 11.5 - 14.5 % 05/25/2025 9:48 AM [facility] MPV 10.2 7.5 - 12.5 fL 05/25/2025 9:48 AM [facility] Neutrophils Auto 68.6 % 05/25/20 9:48 AM [facility] Immature Granulocytes 1.6 % 05/25/2025 9:48 AM [facility] Lymphocytes Auto 20.6 % 05/25/20 9:48 AM EDT [facility] Monocytes Auto 6.1 % 05/25/2025 9:48 AM EDT [facility] Eosinophils Auto 2.5 % 05/25/20 9:48 AM EDT [facility] Basophils Auto 0.6 % 05/25/2025 9:48 AM EDT [facility] Abs Neutrophils Auto 5.99 2.00 - 7.50 Thou/uL 05/25/2025 9:48 AM EDT [facility] Abs Immature Granulocytes 0.14(H) 0.00 - 0.10 Thou/uL 05/25/2025 9:48 AM EDT [facility] Abs Lymphocytes Auto 1.80 1.50 - 4.50 Thou/uL 05/25/2025 9:48 AM EDT [facility] Abs Monocytes Auto 0.53 0.20 - 1.50 Thou/uL 05/25/2025 9:48 AM EDT [facility] Abs Eosinophils Auto 0.22 0.00 - 0.70 Thou/uL 05/25/2025 9:48 AM EDT [facility] Abs Basophils Auto 0.05 0.00 - 0.20 Thou/uL 05/25/2025 9:48 AM EDT [facility] Blood Blood specimen / Unknown 05/25/2025 7:55 AM EDT 05/25/2025 9:14 AM EDT us Rajinder Davis MD LAB BLOOD [place] [address], [address] [address] * (ABNORMAL) POCT Glucose, Fingerstick (05/25/2025 2:30 AM EDT) POC Glucose 118(H) 65 - 99 mg/dL 05/25/2025 2:30 AM EDT Blood specimen / Unknown 05/25/2025 2:30 AM EDT 05/25/2025 2:31 AM EDT Zuhair Laura MD POINT OF CARE TEST ORDERABLES Fi nal Result Performing Organization Address [facility] Phone [facility] LAB See Below * POCT Glucose, Fingerstick (05/25/2025 2:02 AM EDT) POC Glucose 77 65 - 99 mg/dL 05/25/2025 2:10 AM EDT Blood specimen / Unknown 05/25/2025 2:02 AM EDT 05/25/2025 2:10 AM EDT us Zuhair Laura MD POINT OF CARE TEST ORDERABLES Fi nal Result Performing Organization Address [facility] LAB See Below * POCT Glucose, Fingerstick (05/24/2025 9:00 PM EDT) POC Glucose 82 65 - 99 mg/dL 05/24/2025 9:00 PM EDT Blood specimen / Unknown 05/24/2025 9:00 PM EDT 05/24/2025 9:01 PM EDT us Zuhair Laura MD POINT OF CARE TEST ORDERABLES Fi nal Result Performing Organization Address [facility] LAB See Below * POCT Glucose, Fingerstick (05/24/2025 4:56 PM EDT) POC Glucose 78 65 - 99 mg/dL 05/24/2025 4:58 PM EDT Blood specimen / Unknown 05/24/2025 4:56 PM EDT 05/24/2025 4:58 PM EDT us Zuhair Laura MD POINT OF CARE TEST ORDERABLES Fi nal Result Performing Organization Address [facility] LAB See Below * POCT Glucose, Fingerstick (05/24/2025 1:43 PM EDT) POC Glucose 95 65 - 99 mg/dL 05/24/2025 1:48 PM EDT Blood specimen / Unknown 05/24/2025 1:43 PM EDT 05/24/2025 1:48 PM EDT us Zuhair Laura MD POINT OF CARE TEST ORDERABLES Fi nal Result HOSPITAL LAB See Below * (ABNORMAL) ISTAT Activated Clotting Time, Celite (05/24/2025 11:23 AM EDT) Activated Clotting Time (Celite), I-STAT 315(H) 84 - 139 seconds 05/25/2025 6:40 AM EDT Blood specimen / Unknown 05/24/2025 11:23 AM EDT 05/25/2025 6:40 AM EDT us Nicholas Hill MD POCT ORDERABLES - DEVICE Final R esult Performing Organization Address City/[facility] Co de Phone Number HOSPITAL LAB See Below * CC CORONARY ANGIO W/LV, CC ZORAIDA PLACEMENT, 1ST ARTERY, CC IVUS 1ST VESSEL (05/24/2025 11:16 AM EDT) Anatomical Region Laterality Modality Radiographic Fanta ging Narrative 05/24/2025 5:56 PM EDT Table formatting from the original result was not included. Images from the original result were not included. [facility] Heart & Vascular [place] at [facility] - Cardiac Catheterization Laboratory PATIENT DEMOGRAPHIC INFORMATION Name: Codie Fernández : 1970 55 y.o. Sex: female Gender: female Procedure Date: 05/24/2025 Referring Physician: Guerrero Estrada PCP: Provider Not In System PROCEDURE: Procedures: * CORONARY ANGIO W/LV * ZORAIDA PLACEMENT, 1ST ARTERY * IVUS 1ST VESSEL Dual Hose Cementer: Violet Arthur MD Fellow: Luis Alberto Pereira MD Booking Police Officer(s): none Indications for Procedure: NSTEMI PCI Indication: NSTEMI CONCLUSIONS/RECOMMENDATIONS Access with IVUS guided PCI of the distal RCA with a 2.75 mm x 28 mm Synergy XD ZORAIDA that was postdilated with a 3 mm NC balloon. Normal LVEDP. No gradient on pullback. RRA precaution. Continue aspirin 81 mg daily and ticagrelor 90 mg twice daily. High-dose statin and beta-elier as tolerated. Check 2D echo. Continue aggressive risk factor modification. PROCEDURE FINDINGS Pressures Site LV 116 mmHg/3 mmHg 14 mmHg AO 119 mmHg/59 mmHg 83 mmHg AV Gradient 0 mmHg CLINICAL HISTORY 55- year-old female with a PMH of asthma, (HTN, PE, SPARKLE on CPAP,Obesity s/p gastric banding & sleeve noted who was admitted to the hospital due to new onset cardiomyopathy and uptrending troponin. PROCEDURE/INTERVENTION Access Site: Right radial artery Sheath Size: 6F Slender Catheters used: JR4, JL3.5, JR 4 Guide Comments: N/A Hemostasis Method: Compressive band Intervention: After administration of additional heparin the RCA was engaged with a JR 4 guiding catheter, a short run-through wire was used to traverse the lesion and placed into the RPDA. The lesion was predilated with a 2.5 mm balloon. Thereafter a IVUS was performed using an [place]aja eye IVUS catheter that showed a fibrofatty plaque with a distal reference diameter of 2.75 mm and proximal reference diameter of 3 mm. Thereafter, a 2.75 mm x 28 millimeter Synergy XD ZORAIDA was deployed across the lesion at nominal pressure. Next a 3 mm noncompliant balloon was used to post dilate the proximal and mid segment of the stent. Final angiography revealed excellent result without spasm dissection or thrombus. IMPLANTS Implant Name Type Inv. Item Serial No. Mechanical Integrity Specialist Lot No. LRB No. Used Action [id number] CORONARY STENT SYSTEM SYNERGY XD MR 2.75MM 28MM DELIVERY SYS - [id number] Stent [id number] CORONARY STENT SYSTEM SYNERGY XD MR 2.75MM 28MM DELIVERY SYS [employer] [id number] N/A 1 Implanted Complications: None Anesthesia: The procedure was performed under moderate conscious sedation by an independent trained observer (RN) and supervised by the under signed attending MD. See meds list. Sedation Time: 39 minutes 57 seconds Contrast Used: Med Administrations and Associated Flowsheet Values (last 24 hours) Date/Time Action Medication Dose 05/24/25 1119 Given iohexol (OMNIPAQUE) 350 mg/mL injection 80 mL Estimated Blood Loss: 5 mL Verbal Orders and Supervisory Attestation: As the attending physician, I verify I was present throughout the entire procedure and provided physician orders as documented in the specialty electronic documentation system. Furthermore I directly supervised all non physicians providers who assisted me during the procedure and I accept delegation of supervisory responsibility for all post procedure patient care activity related to this patient that I request from a [facility] PA/BRASS INSTRUMENT REPAIR TECHNICIAN/fellow/staff member. Fellow : Luis Alberto Pereira MD Attending: Violet Arthur MD [facility] Heart & Vascular [place] 05/24/2025 11:35 AM Cardiac Protocol CAD Percutaneous Procedure Cardiovascular Instability: No Cardiovascular Instability Type: Ventricular Support Used: Ventricular Support Type: Ventricular Support Timing: Mechanical Support Type: Stress Test Performed: Stress Test Type: Most Recent Stress Test Date: Stress Test Results: Risk/Extent of Ischemia: NYHA HF Class: class III Arterial Cross Over: No Staged PCI?: No CAHP Score: Exact CAHP Score: CSHA Clinical Frailty Score: vulnerable Cardiac Arrest Out of Healthcare Facility: Cardiac Arrest at Transferring Healthcare Facility: Chest Pain Symptom Assessment: typical angina PCI Status: Urgent PCI Indication: non-STEMI. Indications for Executive Vice President And Chief Operating Officer Visit: ACS > 24 hours us Violet Arthur MD CV CARDIAC CATH ORDERABLES Final Result * (ABNORMAL) ISTAT Activated Clotting Time, Celite (05/24/2025 11:04 AM EDT) Activated Clotting Time (Celite), I-STAT 273(H) 84 - 139 seconds 05/25/2025 6:40 AM EDT Blood specimen / Unknown 05/24/2025 11:04 AM EDT 05/25/2025 6:40 AM EDT us Nicholas Hill MD POCT ORDERABLES - DEVICE Final R esult HOSPITAL LAB See Below * ABO Confirmation (05/24/2025 11:00 AM EDT) ABO/Rh O POSITIVE 05/24/2025 12:11 PM EDT [facility] Blood specimen / Unknown 05/24/2025 11:00 AM EDT 05/24/2025 11:24 AM EDT us Zuhair Laura MD BLOOD BANK TEST ORDERABLES Final Result Performing Organization Address City/[facility]/[place] [address], [place] [address] * Type and Screen (05/24/2025 10:45 AM EDT) ABO/Rh O POSITIVE 05/24/2025 12:23 PM EDT [facility] Antibody Screen NEGATIVE 12:23 PM EDT [facility] Specimen Expiration 05/27/2025 05/24/2025 12:23 PM EDT [facility] Blood Blood specimen / Unknown 05/24/2025 10:45 AM EDT 05/24/2025 11:24 AM EDT Violet Arthur MD BLOOD BANK TEST ORDERABLES Final Result Performing Organization Address [facility] [place] [address], [place] [address] * LIPID PANEL (05/24/2025 7:47 AM EDT) Cholesterol, Total 183 <200 mg/dL 2024 9:16 AM [facility] Triglycerides 62 <150 mg/dL 05/24/2025 9:16 AM [facility] Cholesterol, HDL 79 >39 mg/dL 05/24/20 9:16 AM [facility] Estimated LDL 92 <130 mg/dL 05/24/2025 9:16 AM [facility] Comment: Estimated LDL was calculated using the Friedewald equation NCEP Guidelines: < 100 mg/dL Optimal 100 - 129 mg/dL Near Optimal/Above Optimal 130 - 159 mg/dL Borderline High 160 - 189 mg/dL High >/= 190 mg/dL Very High Cholesterol/HDL Ratio 2.3 0.0 - 5.0 Ratio 05/24/2025 9:16 AM [facility] Comment: Relative Risk Ratio - Male Ratio - Female 0.5 3.4 3.3 1.0 5.0 4.4 2.0 9.6 7.1 3.0 23.4 11.0 05/24/2025 7:47 AM EDT 05/24/2025 8:29 AM EDT Guerrero Estrada MD LAB BLOOD ORDERABLES Final Resu lt Performing Organization Address City/[facility] Co de Phone Number [address] [address], [address] [address] * Heparin Assay (Anti Xa) (05/24/2025 7:47 AM EDT) Anti Xa 0.46 IU/mL 05/24/2025 9:25 AM EDT [facility] Comment: (NOTE) Heparin Thromboembolic/Standard/Full Dose Protocol: Therapeutic Range: Age 18+: 0.30 - 0.70 IU/mL Age 0 - 17: 0.35 - 0.70 IU/mL Heparin Cardiac/Low Dose Protocol: Therapeutic Range: 0.30 - 0.50 IU/mL Low Molecular Weight Heparin: Therapeutic Range: Age 18+: 0.50 - 1.09 IU/mL for twice daily dosing (or adjusted to daily for poor renal function) Age 18+: 1.00 - 2.00 IU/mL for once daily dosing Age 0-17: 0.50 - 1.00 IU/mL Anticoagulant HEPARIN, LOW MOLECULAR WEIGHT 05/24/2025 5:09 AM EDT [facility] Blood Blood specimen / Unknown 05/24/2025 7:47 AM EDT 05/24/2025 8:30 AM EDT Bill Pratt MD LAB BLOOD ORDERABLES Final Resu lt Performing Organization Address City/[facility]/ZIP Co de Phone Number [address] [address], [address] [address] * T4, Free (05/24/2025 7:47 AM EDT) T4, Free 1.17 0.80 - 1.90 ng/dL 05/24/2025 9:16 AM EDT [facility] Blood Blood specimen / Unknown 05/24/2025 7:47 AM EDT 05/24/2025 8:29 AM EDT us Guerrero Estarda MD LAB BLOOD ORDERABLES Final Resu lt Performing Organization Address City/[facility]/[place] [address], [address] [address] * Vitamin B12 (05/24/2025 7:47 AM EDT) Vitamin B12 346 243 - 894 pg/mL 05/24/2025 9:16 AM EDT [facility] Blood Blood specimen / Unknown 05/24/2025 7:47 AM EDT 05/24/2025 8:29 AM EDT us Guerrero Estrada MD LAB BLOOD ORDERABLES Final Resu lt Performing Organization Address [facility] [place] [address], [address] [address] * Iron and Total Iron Binding Capacity (05/24/2025 7:47 AM EDT) Iron 105 59 - 151 ug/dL 05/24/2025 9:16 AM EDT [facility] UIBC 182 112 - 346 ug/dL 05/24/2025 9:16 AM EDT [facility] Total Iron Binding Capacity 287 100 - 400 ug/dL 05/24/2025 9:16 AM EDT [facility] Iron Sat 37 20 - 50 % 05/24/2025 9:16 AM EDT [facility] Blood Blood specimen / Unknown 05/24/2025 7:47 AM EDT 05/24/2025 8:29 AM EDT us Guerrero Estrada MD LAB BLOOD ORDERABLES Final Resu lt Performing Organization Address City/[facility]/[place] [address], [address] [address] * (ABNORMAL) Ferritin (05/24/2025 7:47 AM EDT) Ferritin 20(L) 30 - 400 ug/L 05/24/2025 9:16 AM [facility] Blood Blood specimen / Unknown 05/24/2025 7:47 AM EDT 05/24/2025 8:29 AM EDT Guerrero Estrada MD LAB BLOOD ORDERABLES Final Resu lt [address] [address], [address] [address] * Basic Metabolic Panel (05/24/2025 7:47 AM EDT) Glucose 80 65 - 99 mg/dL 05/24/2025 9:16 AM [facility] Comment:Fasting: <100 mg/dL, Non-Fasting: <200 mg/dL (ADA 2005) Blood Urea Nitrogen (BUN) 13 8 - 21 mg/dL 05/24/2025 9:16 AM [facility] Creatinine 0.99 0.40 - 1.10 mg/dL 05/24/2025 9:16 AM [facility] eGFR 67 >59 05/24/2025 9:16 AM [facility] Comment:CKD-EPI (2020) in mL /min/1.73 sq meters. Sodium 138 136 - 145 mmol/L 05/24/2025 9:16 AM [facility] Potassium 4.2 3.4 - 5.3 mmol/L 05/24/2025 9:16 AM [facility] Chloride 103 98 - 107 mmol/L 05/24/2025 9:16 AM [facility] CO2 26 22 - 33 mmol/L 05/24/2025 9:16 AM [facility] Anion Gap 9 7 - 17 05/24/2025 9:16 AM [facility] Calcium 8.7 8.7 - 10.5 mg/dL 05/24/2025 9:16 AM [facility] BUN/Creatinine Ratio 13 10.0 - 25.0 Ratio 05/24/2025 9:16 AM EDT [facility] Blood Blood specimen / Unknown 05/24/2025 7:47 AM EDT 05/24/2025 8:29 AM EDT us Guerrero Estrada MD LAB BLOOD ORDERABLES Final Resu lt Performing Organization Address [facility] [place] [address], [place] [address] * Folate Level (05/24/2025 7:47 AM EDT) Folate, Serum 17.9 >7.2 ng/mL 05/24/2025 9:28 AM [facility] Blood Blood specimen / Unknown 05/24/2025 7:47 AM EDT 05/24/2025 8:29 AM EDT us Guerrero Estrada MD LAB BLOOD ORDERABLES Final Resu lt Performing Organization Address [facility] [place] [address], [place] [address] * (ABNORMAL) Complete Blood Count WITHOUT Differential - Early AM (05/24/2025 7:47 AM EDT) White Blood Cell Count 7.1 4.0 - 11.0 Thou/uL 05/24/2025 8:44 AM [facility] Platelet Count 327 150 - 450 Thou/uL 05/24/2025 8:44 AM [facility] Hemoglobin 9.6(L) 11.7 - 15.7 g/dL 05/24/2025 8:44 AM [facility] Hematocrit 32.1(L) 35.0 - 47.0 % 05/24/2025 8:44 AM [facility] Red Blood Cell Count 3.99(L) 4.00 - 5.40 Mil/uL 05/24/2025 8:44 AM [facility] MCV 81 80 - 100 fL 05/24/2025 8:44 AM EDT [facility] MCH 24.1(L) 27.0 - 31.0 pg 05/24/2025 8:44 AM EDT [facility] MCHC 29.9(L) 30.0 - 36.0 g/dL 05/24/2025 8:44 AM EDT [facility] RDW 17.5(H) 11.5 - 14.5 % 05/24/2025 8:44 AM EDT [facility] MPV 9.7 7.5 - 12.5 fL 05/24/2025 8:44 AM EDT [facility] Blood Blood specimen / Unknown 05/24/2025 7:47 AM EDT 05/24/2025 8:29 AM EDT Guerrero Estrada MD LAB BLOOD ORDERABLES Final Resu lt Performing Organization Address [facility]/[place] [address], [place] [address] * POCT Glucose, Fingerstick (05/24/2025 7:21 AM EDT) POC Glucose 94 65 - 99 mg/dL 05/24/2025 7:21 AM EDT Blood specimen / Unknown 05/24/2025 7:21 AM EDT 05/24/2025 7:22 AM EDT Zuhair Laura MD POINT OF CARE TEST ORDERABLES Fi nal Result HOSPITAL LAB See Below * Heparin Assay (Anti-Xa) (05/24/2025 2:40 AM EDT) Anti Xa 0.52 IU/mL 05/24/2025 3:26 AM EDT [facility] Comment: (NOTE) Heparin Thromboembolic/Standard/Full Dose Protocol: Therapeutic Range: Age 18+: 0.30 - 0.70 IU/mL Age 0 - 17: 0.35 - 0.70 IU/mL Heparin Cardiac/Low Dose Protocol: Therapeutic Range: 0.30 - 0.50 IU/mL Low Molecular Weight Heparin: Therapeutic Range: Age 18+: 0.50 - 1.09 IU/mL for twice daily dosing (or adjusted to daily for poor renal function) Age 18+: 1.00 - 2.00 IU/mL for once daily dosing Age 0-17: 0.50 - 1.00 IU/mL Anticoagulant IV HEPARIN, UNFRACTIONATED 05/23/2025 8:21 PM EDT [facility] Blood Blood specimen / Unknown 05/24/2025 2:40 AM EDT 05/24/2025 3:05 AM EDT us Guerrero Estrada MD LAB BLOOD ORDERABLES Final Resu lt Performing Organization Address City/[facility]/[place] [address], [place] [address] * (ABNORMAL) proBNP, N-terminal (05/24/2025 12:17 AM EDT) proBNP, N-terminal 2,273(H) <125 pg/mL 05/24/2025 4:37 AM EDT [facility] 05/24/2025 12:1 7 AM EDT 05/24/2025 12:23 AM EDT us Guerrero Estrada MD LAB BLOOD [place] [address], [place] [address] * T4, FREE (05/24/2025 12:17 AM EDT) T4, Free 1.26 0.80 - 1.90 ng/dL 05/24/2025 4:37 AM EDT [facility] 05/24/2025 12:1 7 AM EDT 05/24/2025 12:23 AM EDT us Guerrero Estrada MD LAB BLOOD ORDERABLES Final Resu lt Performing Organization Address City/[facility] Co de Phone Number [address] [address], [address] [address] * (ABNORMAL) High Sensitivity Troponin T (Once) (05/24/2025 12:17 AM EDT) High Sensitivity Troponin T 93(HH) <15 ng/L 05/24/2025 12:50 AM EDT [facility] Comment:Recurring Critical R esult. Previously phoned. Delta (Change) 43(H) <3 05/24/2025 12:50 AM EDT [facility] Comment:Decreased Blood Blood specimen / Unknown 05/24/2025 12:17 AM EDT 05/24/2025 12:23 AM EDT Guerrero Estrada MD LAB BLOOD ORDERABLES Final Resu lt Performing Organization Address [facility] Co de Phone Number [address] [address], [address] [id number] * Ed Performed Us Cardiac Limited (05/23/2025 8:44 PM EDT) Anatomical Region Laterality Modality Ultrasound 05/23/2025 8:34 PM EDT Narrative 05/23/2025 9:20 PM EDT Cardiac ( ED) Exam Information: Exam Category: Diagnostic ([employer]) Exam Occurrence: Initial exam Indication(s) for Exam: Chest Pain, Abnormal ECG Views Obtained: Parasternal long-axis, Parasternal short-axis, Apical 4-chamber Findings and Interpretation: Cardiac Activity: Present Pericardium: No pericardial effusion LV function (estimated EF): Decreased (30-50% EF) Regional Wall Motion Abnormality?: Septal regional wall motion abnormality, Anterior regional wall motion abnormality Other findings:: There is an apical abnormality in the setting of potential takotsubo cardiomyopathy but given elevated troponin and chest pain, likely will need consideration for LHC. RV: Normal Aortic Root: <4 cm Medical Decision Making: All focused emergency ultrasounds are limited exams. Comprehensive studies should be obtained for further evaluation as clinically indicated. Attending Signature: I have personally performed or supervised the performance of the ultrasound, reviewed the images as archived, and agree with the findings and impression as documented Electronically signed by Zuhair Laura on Friday, May 23, 2025 at 9:20 PM Procedure Note Zuhair Laura MD - 05/23/2025 Cardiac ( ED) Exam Information: Exam Category: Diagnostic ([employer]) Exam Occurrence: Initial exam Indication(s) for Exam: Chest Pain, Abnormal ECG Views Obtained: Parasternal long-axis, Parasternal short-axis, Apical 4-chamber Findings and Interpretation: Cardiac Activity: Present Pericardium: No pericardial effusion LV function (estimated EF): Decreased (30-50% EF) Regional Wall Motion Abnormality?: Septal regional wall motionabnormality, Anterior regional wall motion abnormality Other findings:: There is an apical abnormality in the setting ofpotential takotsubo cardiomyopathy but given elevated troponin and chestpain, likely will need consideration for LHC. RV: Normal Aortic Root: <4 cm Medical Decision Making: All focused emergency ultrasounds are limited exams. Comprehensive studies should be obtained for further evaluation asclinically indicated. Attending Signature: I have personally performed or supervised theperformance of the ultrasound, reviewed the images as archived, and agreewith the findings and impression as documented Electronically signed by Zuhair Laura on Friday, May 23, 2025 at 9:20PM us Zuhair Laura MD IMG US ORDERABLES Final Result * (ABNORMAL) Hemoglobin A1C with Estimated Average Glucose (05/23/2025 6:19 PM EDT) Hemoglobin A1C 7.7(H) <5.7 % 05/24/2025 1:26 AM EDT [facility] Comment: A1c% Interpretation 5.7 - 6.0 Increase risk of diabetes 6.1 - 6.4 Higher risk of diabetes > or = 6.5 Consistent with diabetes Diabetes Care, 33(Supp 1):S1-S61, 2009 Estimated Average Glucose 174 mg/dL 05/24/2025 1:26 AM EDT [facility] Blood specimen / Unknown 05/23/2025 6:19 PM EDT 05/23/2025 6:54 PM EDT us Zuhair Laura MD LAB BLOOD ORDERABLES Final Resul t Performing Organization Address City/[facility]/[place] [address], [place] [address] * (ABNORMAL) TSH, HIGHLY SENSITIVE (05/23/2025 6:19 PM EDT) TSH, Highly Sensitive 4.75(H) 0.27 - 4.20 mIU/L 05/23/2025 11:03 PM EDT [facility] 05/23/2025 6:19 PM EDT 05/23/2025 6:54 PM EDT us Zuhair Laura MD LAB BLOOD ORDERABLES Final Resul t Performing Organization Address [facility] [place] [address], [place] [address] * Heparin Assay (Anti-Xa) (05/23/2025 6:19 PM EDT) Anti Xa 0.57 IU/mL 05/23/2025 7:14 PM EDT [facility] Comment: (NOTE) Heparin Thromboembolic/Standard/Full Dose Protocol: Therapeutic Range: Age 18+: 0.30 - 0.70 IU/mL Age 0 - 17: 0.35 - 0.70 IU/mL Heparin Cardiac/Low Dose Protocol: Therapeutic Range: 0.30 - 0.50 IU/mL Low Molecular Weight Heparin: Therapeutic Range: Age 18+: 0.50 - 1.09 IU/mL for twice daily dosing (or adjusted to daily for poor renal function) Age 18+: 1.00 - 2.00 IU/mL for once daily dosing Age 0-17: 0.50 - 1.00 IU/mL Anticoagulant IV HEPARIN, UNFRACTIONATED 05/23/2025 6:54 PM EDT [facility] 05/23/2025 6:19 PM EDT 05/23/2025 6:54 PM EDT us Zuhair Laura MD LAB BLOOD ORDERABLES Final Resul t Performing Organization Address City/[facility] [place] [address], [place] [address] * (ABNORMAL) High Sensitivity Troponin T (05/23/2025 6:19 PM EDT) Pathologist [facility] High Sensitivity Troponin T 136(HH) <15 ng/L 05/23/2025 7:37 PM EDT [facility] Delta (Change) NO PREVIOUS RESULT <3 05/23/2025 7:37 PM EDT [facility] 05/23/2025 6:19 PM EDT 05/23/2025 6:54 PM EDT us Zuhair Laura MD LAB BLOOD ORDERABLES Final Resul t Performing Organization Address [facility] [place] [address], [place] [address] * (ABNORMAL) Partial Thromboplastin Time (PTT) (05/23/2025 6:19 PM EDT) Pathologist [facility] Anticoagulant IV HEPARIN, UNFRACTIONATED 05/23/2025 5:45 PM EDT [facility] Partial Thromboplastin Time (PTT) 72(H) 25 - 36 seconds 05/23/2025 7:14 PM EDT [facility] Blood Blood specimen / Unknown 05/23/2025 6:19 PM EDT 05/23/2025 6:54 PM EDT us Zuhair Laura MD LAB BLOOD ORDERABLES Final Resul t Performing Organization Address City/[facility] [place] [address], [place] [address] * Protime-INR (05/23/2025 6:19 PM EDT) Anticoagulant IV HEPARIN, UNFRACTIONATED 05/23/2025 5:45 PM EDT [facility] Prothrombin Time (PT) 12.0 10.0 - 13.5 seconds 05/23/2025 7:14 PM EDT [facility] INR 1.0 05/23/2025 7:14 PM EDT [facility] Comment:INR Therapeutic Rang es: Standard dose anticoagulant 2.0 to 3.0, High dose anticoagulant 2.5-3.5. Blood Blood specimen / Unknown 05/23/2025 6:19 PM EDT 05/23/2025 6:54 PM EDT us Zuhair Laura MD LAB BLOOD ORDERABLES Final Resul t Performing Organization Address City/[facility]/[place] [address], [place] [address] * Magnesium (05/23/2025 6:19 PM EDT) Magnesium 2.0 1.6 - 2.7 mg/dL 05/23/2025 7:37 PM EDT [facility] Blood Blood specimen / Unknown 05/23/2025 6:19 PM EDT 05/23/2025 6:54 PM EDT us Zuhair Laura MD LAB BLOOD ORDERABLES Final Resul t Performing Organization Address [facility] [place] [address], [place] [address] * Comprehensive Metabolic Panel (05/23/2025 6:19 PM EDT) Glucose 78 65 - 99 mg/dL 05/23/2025 7:37 PM EDT [facility] Comment:Fasting: <100 mg/dL, Non-Fasting: <200 mg/dL (ADA 2005) Blood Urea Nitrogen (BUN) 11 8 - 21 mg/dL 05/23/2025 7:37 PM EDT [facility] Creatinine 0.86 0.40 - 1.10 mg/dL 05/23/2025 7:37 PM EDT [facility] eGFR 79 >59 05/23/2025 7:37 PM [facility] Comment:CKD-EPI (2020) in mL /min/1.73 sq meters. Sodium 137 136 - 145 mmol/L 05/23/2025 7:37 PM [facility] Potassium 4.1 3.4 - 5.3 mmol/L 05/23/2025 7:37 PM [facility] Chloride 101 98 - 107 mmol/L 05/23/2025 7:37 PM [facility] CO2 24 22 - 33 mmol/L 05/23/2025 7:37 PM [facility] Calcium 8.8 8.7 - 10.5 mg/dL 05/23/2025 7:37 PM [facility] Alkaline Phosphatase 87 32 - 122 U/L 05/23/2025 7:37 PM [facility] Aspartate Aminotrans (AST) 28 10 - 50 U/L 05/23/2025 7:37 PM [facility] Alanine Aminotrans (ALT) 15 10 - 50 U/L 05/23/2025 7:37 PM [facility] Bilirubin, Total 0.4 0.2 - 1.0 mg/dL 05/23/2025 7:37 PM [facility] Protein, Total 6.4 6.3 - 8.3 g/dL 05/23/2025 7:37 PM [facility] Albumin 3.5 3.5 - 5.0 g/dL 05/23/2025 7:37 PM [facility] BUN/Creatinine Ratio 13 10.0 - 25.0 Ratio 05/23/2025 7:37 PM [facility] Globulin 2.9 1.5 - 3.9 g/dL 05/23/2025 7:37 PM [facility] Albumin/Globulin Ratio 1.2 1.0 - 3.0 Ratio 05/23/2025 7:37 PM [facility] Anion Gap 12 7 - 17 05/23/2025 7:37 PM [facility] Blood Blood specimen / Unknown 05/23/2025 6:19 PM EDT 05/23/2025 6:54 PM EDT us Zuhair Laura MD LAB BLOOD ORDERABLES Final Resul t [facility] [address] [place] [address], [facility] [address] [place] [address] * (ABNORMAL) Complete Blood Count, with Differential (05/23/2025 6:19 PM EDT) White Blood Cell Count 10.1 4.0 - 11.0 Thou/uL 05/23/2025 7:12 PM EDT [facility] Platelet Count 371 150 - 450 Thou/uL 05/23/2025 7:12 PM [facility] Hemoglobin 9.8(L) 11.7 - 15.7 g/dL 05/23/2025 7:12 PM [facility] Hematocrit 32.9(L) 35.0 - 47.0 % 05/23/2025 7:12 PM [facility] Red Blood Cell Count 4.15 4.00 - 5.40 Mil/uL 05/23/2025 7:12 PM [facility] MCV 79(L) 80 - 100 fL 05/23/2025 7:12 PM [facility] MCH 23.6(L) 27.0 - 31.0 pg 05/23/2025 7:12 PM [facility] MCHC 29.8(L) 30.0 - 36.0 g/dL 05/23/2025 7:12 PM [facility] RDW 17.1(H) 11.5 - 14.5 % 05/23/2025 7:12 PM [facility] MPV 10.1 7.5 - 12.5 fL 05/23/2025 7:12 PM EDT [facility] Neutrophils Auto 67.8 % 05/23/20 7:12 PM EDT [facility] Immature Granulocytes 1.7 % 05/23/2025 7:12 PM [facility] Lymphocytes Auto 21.1 % 05/23/20 7:12 PM [facility] Monocytes Auto 7.4 % 05/23/2025 7:12 PM [facility] Eosinophils Auto 1.5 % 05/23/20 7:12 PM [facility] Basophils Auto 0.5 % 05/23/2025 7:12 PM EDT [facility] Abs Neutrophils Auto 6.82 2.00 - 7.50 Thou/uL 05/23/2025 7:12 PM EDT [facility] Abs Immature Granulocytes 0.17(H) 0.00 - 0.10 Thou/uL 05/23/2025 7:12 PM EDT [facility] Abs Lymphocytes Auto 2.12 1.50 - 4.50 Thou/uL 05/23/2025 7:12 PM EDT [facility] Abs Monocytes Auto 0.74 0.20 - 1.50 Thou/uL 05/23/2025 7:12 PM EDT [facility] Abs Eosinophils Auto 0.15 0.00 - 0.70 Thou/uL 05/23/2025 7:12 PM EDT [facility] Abs Basophils Auto 0.05 0.00 - 0.20 Thou/uL 05/23/2025 7:12 PM EDT [facility] Blood Blood specimen / Unknown 05/23/2025 6:19 PM EDT 05/23/2025 6:54 PM EDT us Zuhair Laura MD LAB BLOOD [place] [address], [address] [address] * 10 Min ECG 12 lead (05/23/2025 5:25 PM EDT) Ventricular rate 69 BPM EKG [facility] Atrial rate 69 BPM EKG [facility] P-R interval 162 ms EKG [facility] QRS duration 78 ms EKG [facility] Q-T interval 446 ms EKG [facility] QTC calculation (Bazett) 478 ms EKG [facility] P axis 27 degrees EKG [facility] R axis 8 degrees EKG [facility] T axis 18 degrees EKG [facility] 05/23/2025 5:25 PM EDT Narrative EKG [facility] - 05/23/2025 9:16 PM EDT Normal sinus rhythm Septal infarct , age undetermined Abnormal ECG No previous ECGs available Confirmed by MD Strange Shishir ([id number]) on 05/23/2025 9:16:25 PM Procedure Note Erik Strange MD - 05/23/2025 Normal sinus rhythm Septal infarct , age undetermined Abnormal ECG No previous ECGs available Confirmed by MD Strange Shishir ([id number]) on 05/23/2025 9:16:25 PM Bill Pratt MD ECG ORDERABLES Final Result EKG [facility] documented in this encounter Visit Diagnoses Diagnosis NSTEMI (non-ST elevated myocardial infarction) (HCC)- Primary Acute myocardial infarction, subendocardial infarction, episode of care unspecified Chest pain, unspecified NSTEMI (non-ST elevated myocardial infarction) (HCC) Acute myocardial infarction, subendocardial infarction, episode of care unspecified Nausea & vomiting Nausea with vomiting Diarrhea At risk for abuse of opiates Type 2 diabetes mellitus without complication, without long-term current use of insulin (HCC) Primary hypertension Unspecified essential hypertension Anemia in other chronic diseases classified elsewhere documented in this encounter Admitting Diagnoses Diagnosis NSTEMI (non-ST elevated myocardial infarction) (HCC) Acute myocardial infarction, subendocardial infarction, episode of care unspecified documented in this encounter Administered Medications Inactive Administered Medications - up to 1 most recent administrations Medication Order MAR Action Action Date Dose Rate Site sodium chloride 0.9% (NS) infusion 3 mL/kg/hr 78.3 kg (234.9 mL/hr), Intravenous, Continuous, Starting on Thu05/24/25 at 1200, For 4 hours, Do not modify orders without contacting interventional cardiology attending and/or fellow. Rate/Dose Verify 05/24/2025 1:00 PM EDT 3 mL/kg/hr 234.9 mL/hr acetaminophen (TYLENOL) tablet 650 mg 650 mg, Oral, Every 6 hours PRN, mild pain 1-3, fever greater than 100.4 degrees F, Starting on Thu05/23/25 at 2149 aspirin enteric coated (ECOTRIN LOW STRENGTH) tablet 81 mg 81 mg, Oral, Daily, First dose on Thu05/24/25 at 0900, Do not crush, chew, or split tablet. Given 05/24/2025 7:25 AM EDT 81 mg aspirin enteric coated (ECOTRIN LOW STRENGTH) tablet 81 mg 81 mg, Oral, Daily, First dose (after last modification) on Thu05/25/25 at 0900, Do not crush, chew, or split tablet. Given 05/26/2025 9:01 AM EDT 81 mg atorvastatin (LIPITOR) tablet 80 mg 80 mg, Oral, Daily, First dose on Thu05/24/25 at 0900 Given 05/26/2025 9:01 AM EDT 80 mg dextrose 50 % solution 12.5 g 12.5 g, Intravenous, Every 15 min PRN, low blood sugar, between 50 and 69 mg/dL, Starting on Thu05/24/25 at 0159, For patient with IV access who is NPO or unable to swallow. See Hypoglycemia Management guideline. dextrose 50 % solution 25 g 25 g, Intravenous, Every 15 min PRN, low blood sugar, less than 50 mg/dL, Starting on Thu05/24/25 at 0159, For patient with IV access who is NPO or unable to swallow. See Hypoglycemia Management guideline. docusate sodium (COLACE) capsule 100 mg 100 mg, Oral, 2 times daily, First dose on Thu05/25/25 at 2100 Given 05/25/2025 8:58 PM EDT 100 mg doxycycline (VIBRAMYCIN) capsule 100 mg 100 mg, Oral, Once, On Thu05/24/25 at 1600, For 1 dose, All antimicrobials used at [facility] require an indication. Please complete the following documentation. Bacterial Infection Documented, Type of Therapy: Continued from [facility], Indication: Cellulitis Given 05/24/2025 5:56 PM EDT 100 mg fluticasone-vilanterol (BREO ELLIPTA) 100-25 MCG/ACT inhaler 1 puff 1 puff, Inhalation, Daily, First dose on Thu05/25/25 at 0900, Rinse mouth with water after inhalation and spit. Given 05/26/2025 9:03 AM EDT 1 puff folic acid (FOLVITE) tablet 1,000 mcg 1,000 mcg, Oral, Daily, First dose on Thu05/24/25 at 1600 Given 05/26/2025 9:02 AM EDT 1,000 mcg glucagon (GLUCAGEN) injection 1 mg 1 mg, Intramuscular, Daily PRN, low blood sugar, for Blood Glucose LESS than 70 mg/dL and NPO and no IV access, Starting on Thu05/24/25 at 0159, Glucagon may be repeated x 1 (for a total of 2 doses per hypoglycemic event) if patient remains hypoglycemic after first dose. Do not use with hepatic disease or alcohol intoxication. See Hypoglycemia Management guideline. Reconstitute vial with 1 mL sterile water for injection. glucose (GLUTOSE 15) 40 % oral gel 37.5 g 37.5 g (1 Tube), Oral, Every 15 min PRN, low blood sugar, between 50 and 69 mg/dL, Starting on Thu05/24/25 at 0159, Juice or soda is preferred for alert patients (4 oz juice or 6 oz soda). Use glucose gel for patients with fluid restriction. See Hypoglycemia Management guideline. Each 37.5 gram tube of glucose 40 % = 15 grams of glucose. glucose (GLUTOSE 15) 40 % oral gel 75 g 75 g (2 Tube), Oral, Every 15 min PRN, low blood sugar, less than 50 mg/dL, Starting on Thu05/24/25 at 0159, Juice or soda is preferred for alert patients (8 oz juice or 12 oz soda). Use glucose gel for patients with fluid restriction. See Hypoglycemia Management guideline. Each 37.5 gram tube of glucose 40 % = 15 grams of glucose. heparin (porcine) IV infusion 25,000 units in 500 mL 0.45% NaCl (premix) 18.744 mL/hr (12 Units/kg/hr 78.1 kg), Intravenous, Continuous, Starting on Thu05/23/25 at 1745, HEPARIN CARDIAC/LOW DOSE PROTOCOL: Initial Infusion Dose: See dose above, MAX initial dose 1,000 units/hr (83 kg and above) Dose adjustment instructions: - Obtain a Heparin Anti-factor Xa (Anti-Xa) level 6 hours after start of infusion and 6 hours after every dose change. - Once patient is within therapeutic range for two consecutive Anti-Xa measurements, then obtain Anti-Xa daily with AM labs until infusion is discontinued. When heparin infusion is interrupted: - For less than or equal to 90 minutes: ~ Restart heparin infusion at the most recent dose and draw Anti-Xa level in 6 hours from restart. ~ No bolus required. Adjust per protocol. - For greater than 90 minutes or if heparin interruption for unknown time period: ~ Draw stat Anti-Xa level (Do not adjust infusion dose based on this Anti-Xa result). ~ Restart heparin infusion at most recent dose (most recent dose may be anytime during the patient's current admission). ~ Notify licensed practioner regarding interruption and discuss if IV bolus is necessary; licensed practioner to consider ordering IV bolus if greater than 6 hours heparin interruption. ~ Draw Anti-Xa in 6 hours and proceed per protocol. - Document all pertinent communications with providers in the patient's record. - Adjust infusion based on Anti-Xa result per Cardiac/Low Dose protocol table: Concentration = 50 units/mL, Indication for Anticoagulation: Acute NC Rate Change - High Risk Medication 05/24/2025 4:59 AM EDT 10 Units/kg/hr 15.62 mL/hr insulin lispro (HumaLOG/ADMELOG) 100 units/mL injection 1-5 Units 1-5 Units, Subcutaneous, 3 times daily with meals, First dose on Thu05/24/25 at 0800, DO NOT HOLD IF NPO Notify provider if Blood Glucose LESS than 70 For BG 141-190 administer 1 unit For BG 191-240 administer 2 units For BG 241-290 administer 3 units For BG 291-340 administer 4 units For BG MORE than 340, administer 5 units AND notify provider ipratropium-albuterol (DUONEB) 0.5-2.5 mg/3 mL nebulizer solution 3 mL 3 mL, Nebulization, Every 4 hours PRN, wheezing, shortness of breath, Starting on Thu05/23/25 at 2141, Albuterol expressed in base strength. Albuterol sulfate 3 mg = albuterol (base) 2.5 mg., Albuterol or Duoneb Indication: COPD, Asthma Given 05/25/2025 6:37 AM EDT 3 mL losartan (COZAAR) tablet 25 mg 25 mg, Oral, Daily, First dose on Drea 05/25/25 at 0900, Hold for SBP less than 100 mmHg. Notify provider if a dose is held. Given 05/26/2025 9:01 AM EDT 25 mg losartan (COZAAR) tablet 50 mg 50 mg, Oral, Daily, First dose (after last modification) on 05/27/25 at 0900, Hold for SBP less than 100 mmHg. Notify provider if a dose is held. metoPROLOL SUCCINATE (TOPROL-XL) 24 hr tablet 25 mg 25 mg, Oral, Daily, First dose on Thu05/25/25 at 0900, Hold for HR less than 45 bpm and/or SBP less than 90 mmHg. Notify provider if a dose is held. *DO NOT CHEW OR CRUSH* Given 05/26/2025 9:01 AM EDT 25 mg metoPROLOL TARTRATE (LOPRESSOR) tablet 12.5 mg 12.5 mg, Oral, Every 12 hours scheduled, First dose on Thu05/23/25 at 2148, Hold for HR less than 45 bpm and/or SBP less than 90 mmHg. Notify provider if a dose is held., On hold since Thu05/24/2025 at 0246 until manually unheld Given 05/23/2025 10:23 PM EDT 12.5 mg metoPROLOL TARTRATE (LOPRESSOR) tablet 12.5 mg 12.5 mg, Oral, Every 12 hours scheduled, First dose (after last modification) on Thu05/24/25 at 2100, Hold for HR less than 45 bpm and/or SBP less than 90 mmHg. Notify provider if a dose is held. Given 05/24/2025 9:05 PM EDT 12.5 mg montelukast (SINGULAIR) tablet 10 mg 10 mg, Oral, Nightly, First dose on Thu05/23/25 at 2142 Given 05/25/2025 8:58 PM EDT 10 mg naloxone (NARCAN) 0.4 mg/mL injection 0.4 mg 0.4 mg, Intravenous, Every 5 min PRN, opioid reversal, respiratory depression, Starting on Thu05/24/25 at 1133, If respiratory rate is less than 8 breaths/minute or patient is difficult to arouse. Stop all narcotics and contact provider. naltrexone (REVIA) tablet 50 mg 50 mg, Oral, Daily, First dose on Thu05/24/25 at 0900 Given 05/26/2025 9:02 AM EDT 50 mg ondansetron (ZOFRAN) injection 4 mg 4 mg, Intravenous, Every 6 hours PRN, nausea, vomiting, Starting on Thu05/24/25 at 1133 PANTOprazole (PROTONIX) EC tablet 40 mg 40 mg, Oral, 2 times daily, First dose on Thu05/23/25 at 2142, *DO NOT CHEW OR CRUSH* Given 05/26/2025 9:01 AM EDT 40 mg perflutren lipid microsphere (DEFINITY) 1.3 mL in sodium chloride (NS) 0.9 % 10 mL 0.5-8 mL, Intravenous, Once in imaging, other, Starting on Thu05/26/25 at 0954, For 1 dose, Document total dose administered per policy Given 05/26/2025 10:25 AM EDT 4 mL polyethylene glycol (miraLAx) packet 17 g 17 g, Oral, Daily, First dose on Thu05/25/25 at 1630, Stir and dissolve in 4-8 oz of fluids. Given 05/25/2025 5:05 PM EDT 17 g ticagrelor (BRILINTA) tablet 90 mg 90 mg, Oral, 2 times daily, First dose on Thu05/24/25 at 2100, Do not administer with aspirin doses greater than 81 mg. Given 05/26/2025 9:01 AM EDT 90 mg documented in this encounter Active and Recently Administered Medications Times are shown in EDT. Scheduled Medication Order 05/24/2025 05/25/2025 05/26/2025 aspirin enteric coated (ECOTRIN LOW STRENGTH) tablet 81 mg (CANCELED) 81 mg, Oral, Daily, First dose on Thu05/24/25 at 0900, Do not crush, chew, or split tablet. 0725 (Given - Provider: Varinder Khan RN)1024 (MAR Hold - Provider: Automatic Transfer Provider - Reason: Unreviewed Transfer Orders)1131 (MAR Unhold - Provider: Luis Alberto Pereira MD) aspirin enteric coated (ECOTRIN LOW STRENGTH) tablet 81 mg 81 mg, Oral, Daily, First dose (after last modification) on Thu05/25/25 at 0900, Do not crush, chew, or split tablet. 1140 (Given - Provider: Jen Blevins RN) 0901 (Given - Provider: Jazmyne Colbert RN) atorvastatin (LIPITOR) tablet 80 mg 80 mg, Oral, Daily, First dose on Thu05/24/25 at 0900 0725 (Given - Provider: Varinder Khan RN)1024 (MAR Hold - Provider: Automatic Transfer Provider - Reason: Unreviewed Transfer Orders)1133 (MAR Unhold - Provider: Gayle Lee RN) 1142 (Given - Provider: Jen Blevins RN) 0901 (Given - Provider: Jazmyne Colbert, RN) docusate sodium (COLACE) capsule 100 mg 100 mg, Oral, 2 times daily, First dose on Thu05/25/25 at 2100 2058 (Given - Provider: Marisol Avila RN) 0903 (Not Given - Provider: Jazmyne Colbert RN - Reason: Dose held per order parameters) doxycycline (VIBRAMYCIN) capsule 100 mg (COMPLETED) 100 mg, Oral, Once, On Thu05/24/25 at 1600, For 1 dose, All antimicrobials used at [facility] require an indication. Please complete the following documentation. Bacterial Infection Documented, Type of Therapy: Continued from [facility], Indication: Cellulitis 1755 (Given - Provider: Jen Blevins RN) fluticasone-vilanterol (BREO ELLIPTA) 100-25 MCG/ACT inhaler 1 puff 1 puff, Inhalation, Daily, First dose on Thu05/25/25 at 0900, Rinse mouth with water after inhalation and spit. 1152 (Given - Provider: Jen Blevins RN) 0903 (Given - Provider: Jazmyne Colbert RN) folic acid (FOLVITE) tablet 1,000 mcg 1,000 mcg, Oral, Daily, First dose on Thu05/24/25 at 1600 1756 (Given - Provider: Jen Blevins RN) 1143 (Given - Provider: Jen Blevins RN) 0902 (Given - Provider: Jazmyne Colbert RN) insulin lispro (HumaLOG/ADMELOG) 100 units/mL injection 1-5 Units 1-5 Units, Subcutaneous, 3 times daily with meals, First dose on Thu05/24/25 at 0800, DO NOT HOLD IF NPO Notify provider if Blood Glucose LESS than 70 For BG 141-190 administer 1 unit For BG 191-240 administer 2 units For BG 241-290 administer 3 units For BG 291-340 administer 4 units For BG MORE than 340, administer 5 units AND notify provider 0725 (Not Given - Provider: Varinder Khan RN - Reason: Dose held per order parameters - Comment: bg [phone] (MAR Hold - Provider: Automatic Transfer Provider - Reason: Unreviewed Transfer Orders)1133 (MAR Unhold - Provider: Gayle Lee RN)1300 (Not Given - Provider: Isabella Pastor RN - Reason: Dose held per order parameters)1735 (Not Given - Provider: Jen Blevins RN - Reason: Dose held per order parameters) 0840 (Not Given - Provider: Nick Christian RN - Reason: Dose held per order parameters)1219 (Not Given - Provider: Jen Blevins RN - Reason: Dose held per order parameters)1700 (Due) 0855 (Not Given - Provider: Jazmyne Colbert RN - Reason: Dose held per order parameters)1314 (Not Given - Provider: Nelli Baca RN - Reason: Dose held per order parameters) losartan (COZAAR) tablet 25 mg (CANCELED) 25 mg, Oral, Daily, First dose on Drea 05/25/25 at 0900, Hold for SBP less than 100 mmHg. Notify provider if a dose is held. 1141 (Given - Provider: Jen Blevins RN) 0901 (Given - Provider: Jazmyne Colbert RN) losartan (COZAAR) tablet 50 mg 50 mg, Oral, Daily, First dose (after last modification) on 05/27/25 at 0900, Hold for SBP less than 100 mmHg. Notify provider if a dose is held. metoPROLOL SUCCINATE (TOPROL-XL) 24 hr tablet 25 mg 25 mg, Oral, Daily, First dose on Drea 05/25/25 at 0900, Hold for HR less than 45 bpm and/or SBP less than 90 mmHg. Notify provider if a dose is held. *DO NOT CHEW OR CRUSH* 1142 (Given - Provider: Jen Blevins RN) 0901 (Given - Provider: Jazmyne Colbert, RN) metoPROLOL TARTRATE (LOPRESSOR) tablet 12.5 mg (CANCELED) 12.5 mg, Oral, Every 12 hours scheduled, First dose (after last modification) on Thu05/24/25 at 2100, Hold for HR less than 45 bpm and/or SBP less than 90 mmHg. Notify provider if a dose is held. 0246 (Provider Held - Provider: Luis Alberto Pereira MD - Reason: Change in vital signs)1131 (Provider Unheld - Provider: Luis Alberto Pereira MD - Reason: Change in vital signs)2104 (Given - Provider: Juana Peters, RN) montelukast (SINGULAIR) tablet 10 mg 10 mg, Oral, Nightly, First dose on Thu05/23/25 at 2142 1024 (OCT Hold - Provider: Automatic Transfer Provider - Reason: Unreviewed Transfer Orders)1133 (MAR Unhold - Provider: Gayle Lee RN)2103 (Given - Provider: Juana Peters RN) 2057 (Given - Provider: Marisol Avila, RN) naltrexone (REVIA) tablet 50 mg 50 mg, Oral, Daily, First dose on Thu05/24/25 at 0900 0725 (Given - Provider: Varinder Khan, KELVIN)1024 (OCT Hold - Provider: Automatic Transfer Provider - Reason: Unreviewed Transfer Orders)1133 (MAR Unhold - Provider: Gayle Lee RN) 1142 (Given - Provider: Jen Blevins RN) 0902 (Given - Provider: Jazmyne Colbert RN) PANTOprazole (PROTONIX) EC tablet 40 mg 40 mg, Oral, 2 times daily, First dose on Thu05/23/25 at 2142, *DO NOT CHEW OR CRUSH* 0725 (Given - Provider: Varinder Khan, KELVIN)1024 (OCT Hold - Provider: Automatic Transfer Provider - Reason: Unreviewed Transfer Orders)1133 (MAR Unhold - Provider: Gayle Lee RN)2103 (Given - Provider: Juana Peters RN) 1142 (Given - Provider: Jen Blevins RN)2057 (Given - Provider: Marisol Avila, KELVIN) 0901 (Given - Provider: Jazmyne Colbert, RN) polyethylene glycol (miraLAx) packet 17 g 17 g, Oral, Daily, First dose on Thu05/25/25 at 1630, Stir and dissolve in 4-8 oz of fluids. 1705 (Given - Provider: Jen Blevins RN) 0903 (Not Given - Provider: Jazmyne Colbert, KELVIN - Reason: Patient/family refused) ticagrelor (BRILINTA) tablet 90 mg 90 mg, Oral, 2 times daily, First dose on Thu05/24/25 at 2100, Do not administer with aspirin doses greater than 81 mg. 1450 (OCT Hold - Provider: Automatic Transfer Provider - Reason: Unreviewed Transfer Orders)1543 (OCT Unhold - Provider: Debra Gallardo MD)2104 (Given - Provider: Juana Peters, RN) 1143 (Given - Provider: Jen Blevins, RN)205 (Given - Provider: Marisol Avila, RN) 0901 (Given - Provider: Jazmyne Colbert RN) Continuous Medication Order 05/24/2025 05/25/2025 05/26/2025 sodium chloride 0.9% (NS) infusion () 3 mL/kg/hr 78.3 kg (234.9 mL/hr), Intravenous, Continuous, Starting on Thu05/24/25 at 1200, For 4 hours, Do not modify orders without contacting interventional cardiology attending and/or fellow. 1151 (New Bag - Provider: Gayle Lee RN)1300 (Rate/Dose Verify - Provider: Isabella Pastor RN)1450 (OCT Hold - Provider: Automatic Transfer Provider - Reason: Unreviewed Transfer Orders)1543 ([facility] Unhold - Provider: Debra Gallardo MD) heparin (porcine) IV infusion 25,000 units in 500 mL 0.45% NaCl (premix) (CANCELED) 18.744 mL/hr (12 Units/kg/hr 78.1 kg), Intravenous, Continuous, Starting on Thu05/23/25 at 1745, HEPARIN CARDIAC/LOW DOSE PROTOCOL: Initial Infusion Dose: See dose above, MAX initial dose 1,000 units/hr (83 kg and above) Dose adjustment instructions: - Obtain a Heparin Anti-factor Xa (Anti-Xa) level 6 hours after start of infusion and 6 hours after every dose change. - Once patient is within therapeutic range for two consecutive Anti-Xa measurements, then obtain Anti-Xa daily with AM labs until infusion is discontinued. When heparin infusion is interrupted: - For less than or equal to 90 minutes: ~ Restart heparin infusion at the most recent dose and draw Anti-Xa level in 6 hours from restart. ~ No bolus required. Adjust per protocol. - For greater than 90 minutes or if heparin interruption for unknown time period: ~ Draw stat Anti-Xa level (Do not adjust infusion dose based on this Anti-Xa result). ~ Restart heparin infusion at most recent dose (most recent dose may be anytime during the patient's current admission). ~ Notify licensed practioner regarding interruption and discuss if IV bolus is necessary; licensed practioner to consider ordering IV bolus if greater than 6 hours heparin interruption. ~ Draw Anti-Xa in 6 hours and proceed per protocol. - Document all pertinent communications with providers in the patient's record. - Adjust infusion based on Anti-Xa result per Cardiac/Low Dose protocol table: Concentration = 50 units/mL, Indication for Anticoagulation: Acute NC 0459 (Rate Change - High Risk Medication - Provider: Meena Brown RN)0708 (Handoff - Provider: Varinder Khan, KELVIN)1150 (Stopped - Provider: Gayle Lee RN) PRN Medication Order 05/24/2025 05/25/2025 05/26/2025 sodium chloride 0.9% (NS) infusion (COMPLETED) Continuous PRN, Starting on Thu05/24/25 at 1031, Intra-Procedure (Cath) 1031 (New Bag - Provider: Douglas Ta, KELVIN)1151 (Stopped - Provider: Isabella Pastor RN - Comment: see cath log) acetaminophen (TYLENOL) tablet 650 mg 650 mg, Oral, Every 6 hours PRN, mild pain 1-3, fever greater than 100.4 degrees F, Starting on Thu05/23/25 at 2149 1024 (OCT Hold - Provider: Automatic Transfer Provider - Reason: Unreviewed Transfer Orders)1133 (OCT Unhold - Provider: Gayle Lee RN) dextrose 50 % solution 12.5 g(Linked Group 1) 12.5 g, Intravenous, Every 15 min PRN, low blood sugar, between 50 and 69 mg/dL, Starting on Thu05/24/25 at 0159, For patient with IV access who is NPO or unable to swallow. See Hypoglycemia Management guideline. 1024 (OCT Hold - Provider: Automatic Transfer Provider - Reason: Unreviewed Transfer Orders)1133 (OCT Unhold - Provider: Gayle Lee RN) dextrose 50 % solution 25 g(Linked Group 1) 25 g, Intravenous, Every 15 min PRN, low blood sugar, less than 50 mg/dL, Starting on Thu05/24/25 at 0159, For patient with IV access who is NPO or unable to swallow. See Hypoglycemia Management guideline. 1024 ([facility] Hold - Provider: Automatic Transfer Provider - Reason: Unreviewed Transfer Orders)1133 ([facility] Unhold - Provider: Gayle Lee RN) fentaNYL 100 MCG/2ML injection (CANCELED) As needed, Starting on Thu05/24/25 at 1036, Intra-Procedure (Cath) 1036 (Given - Provider: Douglas aT RN)1106 (Given - Provider: Douglas Ta RN) glucagon (GLUCAGEN) injection 1 mg(Linked Group 1) 1 mg, Intramuscular, Daily PRN, low blood sugar, for Blood Glucose LESS than 70 mg/dL and NPO and no IV access, Starting on Thu05/24/25 at 0159, Glucagon may be repeated x 1 (for a total of 2 doses per hypoglycemic event) if patient remains hypoglycemic after first dose. Do not use with hepatic disease or alcohol intoxication. See Hypoglycemia Management guideline. Reconstitute vial with 1 mL sterile water for injection. 1024 ([facility] Hold - Provider: Automatic Transfer Provider - Reason: Unreviewed Transfer Orders)1133 ([facility] Unhold - Provider: Gayle Lee RN) glucose (GLUTOSE 15) 40 % oral gel 37.5 g(Linked Group 1) 37.5 g (1 Tube), Oral, Every 15 min PRN, low blood sugar, between 50 and 69 mg/dL, Starting on Thu05/24/25 at 0159, Juice or soda is preferred for alert patients (4 oz juice or 6 oz soda). Use glucose gel for patients with fluid restriction. See Hypoglycemia Management guideline. Each 37.5 gram tube of glucose 40 % = 15 grams of glucose. 1024 ([facility] Hold - Provider: Automatic Transfer Provider - Reason: Unreviewed Transfer Orders)1133 ([facility] Unhold - Provider: Gayle Lee RN) glucose (GLUTOSE 15) 40 % oral gel 75 g(Linked Group 1) 75 g (2 Tube), Oral, Every 15 min PRN, low blood sugar, less than 50 mg/dL, Starting on Thu05/24/25 at 0159, Juice or soda is preferred for alert patients (8 oz juice or 12 oz soda). Use glucose gel for patients with fluid restriction. See Hypoglycemia Management guideline. Each 37.5 gram tube of glucose 40 % = 15 grams of glucose. 1024 (OCT Hold - Provider: Automatic Transfer Provider - Reason: Unreviewed Transfer Orders)1133 (OCT Unhold - Provider: Gayle Lee RN) heparin (porcine) 1000 unit/mL injection (CANCELED) As needed, Starting on Thu05/24/25 at 1037, Intra-Procedure (Cath) 1037 (Given - Provider: Luis Alberto Pereira MD) heparin (porcine) 1000 unit/mL injection (CANCELED) As needed, Starting on Thu05/24/25 at 1046, Intra-Procedure (Cath) 1046 (Given - Provider: Douglas Ta RN) heparin (porcine) 1000 unit/mL injection (CANCELED) As needed, Starting on Thu05/24/25 at 1105, Intra-Procedure (Cath) 1105 (Given - Provider: Douglas Ta RN) hydrOXYzine HCl (ATARAX) tablet 25 mg 25 mg, Oral, Every 8 hours PRN, itching, Starting on Thu05/24/25 at 1543 iohexol (OMNIPAQUE) 350 mg/mL injection (CANCELED) As needed, Starting on Thu05/24/25 at 1119, Intra-Procedure (Cath) 1119 (Given - Provider: Violet Arthur MD) ipratropium-albuterol (DUONEB) 0.5-2.5 mg/3 mL nebulizer solution 3 mL 3 mL, Nebulization, Every 4 hours PRN, wheezing, shortness of breath, Starting on Thu05/23/25 at 2141, Albuterol expressed in base strength. Albuterol sulfate 3 mg = albuterol (base) 2.5 mg., Albuterol or Duoneb Indication: COPD, Asthma 1024 (OCT Hold - Provider: Automatic Transfer Provider - Reason: Unreviewed Transfer Orders)1133 (OCT Unhold - Provider: Gayle Lee RN)2012 (Given - Provider: Dayan Bee, PILLOW CLEANER) 0637 (Given - Provider: Ozzy Gutierrez, LUIS) lidocaine (XYLOCAINE) 2 % injection (CANCELED) As needed, Starting on Thu05/24/25 at 1035, Intra-Procedure (Cath) 1035 (Given - Provider: Luis Alberto Pereira MD) midazolam (VERSED) 1 mg/mL injection (CANCELED) As needed, Starting on Thu05/24/25 at 1036, Intra-Procedure (Cath) 1036 (Given - Provider: Douglas Ta, KELVIN)1106 (Given - Provider: Douglas Ta, KELVIN) naloxone (NARCAN) 0.4 mg/mL injection 0.4 mg 0.4 mg, Intravenous, Every 5 min PRN, opioid reversal, respiratory depression, Starting on Thu05/24/25 at 1133, If respiratory rate is less than 8 breaths/minute or patient is difficult to arouse. Stop all narcotics and contact provider. 1450 (OCT Hold - Provider: Automatic Transfer Provider - Reason: Unreviewed Transfer Orders)1543 (OCT Unhold - Provider: Debra Gallardo MD) nitroGLYCERCIN 100 mcg/mL injection (CANCELED) As needed, Starting on Thu05/24/25 at 1038, Intra-Procedure (Cath) 1038 (Given - Provider: Luis Alberto Pereira MD)1101 (Given - Provider: Violet Arthur MD) ondansetron (ZOFRAN) injection 4 mg 4 mg, Intravenous, Every 6 hours PRN, nausea, vomiting, Starting on Thu05/24/25 at 1133 1450 (OCT Hold - Provider: Automatic Transfer Provider - Reason: Unreviewed Transfer Orders)1543 (OCT Unhold - Provider: Debra Gallardo MD) perflutren lipid microsphere (DEFINITY) 1.3 mL in sodium chloride (NS) 0.9 % 10 mL (COMPLETED) 0.5-8 mL, Intravenous, Once in imaging, other, Starting on Thu05/26/25 at 0954, For 1 dose, Document total dose administered per policy 1025 (Given - Provider: Smita Quintero RDCS) ticagrelor (BRILINTA) tablet (CANCELED) As needed, Starting on Thu05/24/25 at 1051, Intra-Procedure (Cath) 1051 (Given - Provider: Douglas Ta RN) verapamil (ISOPTIN) injection (CANCELED) As needed, Starting on Thu05/24/25 at 1038, Intra-Procedure (Cath) 1038 (Given - Provider: Luis Alberto Pereira MD) Linked Groups Order Group 1: glucose (GLUTOSE 15) 40 % oral gel 37.5 gJump to med 37.5 g (1 Tube), Oral, Every 15 min PRN, low blood sugar, between 50 and 69 mg/dL, Starting on Thu05/24/25 at 0159, Juice or soda is preferred for alert patients (4 oz juice or 6 oz soda). Use glucose gel for patients with fluid restriction. See Hypoglycemia Management guideline. Each 37.5 gram tube of glucose 40 % = 15 grams of glucose. Or glucose (GLUTOSE 15) 40 % oral gel 75 gJump to med 75 g (2 Tube), Oral, Every 15 min PRN, low blood sugar, less than 50 mg/dL, Starting on Thu05/24/25 at 0159, Juice or soda is preferred for alert patients (8 oz juice or 12 oz soda). Use glucose gel for patients with fluid restriction. See Hypoglycemia Management guideline. Each 37.5 gram tube of glucose 40 % = 15 grams of glucose. Or dextrose 50 % solution 12.5 gJump to med 12.5 g, Intravenous, Every 15 min PRN, low blood sugar, between 50 and 69 mg/dL, Starting on Thu05/24/25 at 0159, For patient with IV access who is NPO or unable to swallow. See Hypoglycemia Management guideline. Or dextrose 50 % solution 25 gJump to med 25 g, Intravenous, Every 15 min PRN, low blood sugar, less than 50 mg/dL, Starting on Thu05/24/25 at 0159, For patient with IV access who is NPO or unable to swallow. See Hypoglycemia Management guideline. Or glucagon (GLUCAGEN) injection 1 mgJump to med 1 mg, Intramuscular, Daily PRN, low blood sugar, for Blood Glucose LESS than 70 mg/dL and NPO and no IV access, Starting on Thu05/24/25 at 0159, Glucagon may be repeated x 1 (for a total of 2 doses per hypoglycemic event) if patient remains hypoglycemic after first dose. Do not use with hepatic disease or alcohol intoxication. See Hypoglycemia Management guideline. Reconstitute vial with 1 mL sterile water for injection. documented in this encounter Care Teams Paramedic Instructor Relationship Specialty Start Date End Date System, Provider Not In PCP - General 05/23/25 05/23/25 Gt Prescott MD [address] [place] [address] PCP - General Internal Medicine 05/24/25 documented as of this encounter
--- OUTSIDE RECORDS SUMMARY | 2025-05-23 21:25 | XMS_ITS | Encounter Summary ---
Author Organization [facility] Address [address] [place] [address] Care Team Providers Care Braided Rug Maker Name Role Phone System, Provider Not In Primary Care Provider Un available Reason for Visit * Auth/Cert Specialty Diagnoses / Procedures Referred By Holly t Referred To Contact Diagnoses NSTEMI (non-ST elevated myocardial infarction) (HCC) NSTEMI Procedures N/A Referral ID Status Reason Start Date Expiration Date Visits Re quested Visits Authorized [id number] 1 1 Encounter Details Date Type Department Care Team (Late st Contact Info) Description 05/23/2025 9:25 PM EDT Ancillary Procedure [facility] Emergency Department [address] [place] [id number] Zuhair Laura MD [address] [place] [address] Social History Tobacco Use Types Packs/Day Years Used Date Smoking Tobacco: Never Assessed [facility] Utilities Answer Date Recorded In the past 12 months has [employer], gas, oil, or water [employer] threatened to shut off services in your [...] any time in the past 12 m [facility], were you homeless or living in a senior living (including now)? No 05/24/2025 Comments Unknown Sex and Gender Information Value Date Recorded Sex Assigned at Female 05/23/2025 5:47 PM EDT Legal Sex Female 7:08 PM EST Gender Identity Female 05/23/2025 5:47 PM EDT Sexual Orientation Heterosexual (straight) 05/23 5:47 PM EDT documented as of this encounter Plan of Treatment Not on file documented as of this encounter Procedures Procedure Name Priority Date/Time Associated Diagnosis Comments ED PERFORMED US CARDIAC LIMITED STAT 05/23/2025 8:44 PM EDT Chest pain, unspecified documented in this encounter Results * Ed Performed Us Cardiac Limited (05/23/2025 8:44 PM EDT) Anatomical Region Laterality Modality Ultrasound 05/23/2025 8:34 PM EDT Narrative 05/23/2025 9:20 PM EDT Cardiac ( ED) Exam Information: Exam Category: Diagnostic (Hussein) Exam Occurrence: Initial exam Indication(s) for Exam: [...] ( ED) Exam Information: Exam Category: Diagnostic (Hussein) Exam Occurrence: Initial exam Indication(s) for Exam: [...] Laura MD IMG US ORDERABLES Final Result documented in this encounter Visit Diagnoses Not on filedocumented in this encounter Care Teams Braided Rug Maker Relationship Specialty Start Date End Date System, Provider Not In PCP - General 05/23/25 05/23/25 documented as of this encounter
--- OUTSIDE RECORDS SUMMARY | 2025-05-24 10:17 | XMS_ITS | Encounter Summary ---
Author Organization [facility] Address [address] [place] [address] Care Team Providers Care Combination Presser Name Role Phone Gt Prescott MD Primary Care Provider [phone] Reason for Visit * Reason Comments Chest Pain * Auth/Cert Specialty Diagnoses / Procedures Referred By Holly t Referred To Contact Diagnoses NSTEMI (non-ST elevated myocardial infarction) (HCC) NSTEMI Procedures N/A Referral ID Status Reason Start Date Expiration Date Visits Re quested Visits Authorized [id number] 1 1 Encounter Details Date Type Department Care Team (Late st Contact Info) Description 05/24/2025 10:17 AM EDT - 05/24/2025 11:27 AM EDT Surgery [facility] Heart & Vascular [place] [facility] - Cardiac Catheterization Laboratory [address] [place] [id number] Violet Arthur MD 85 [facility] [address] [place] [id number] CORONARY ANGIO W/LV Social History Tobacco Use Types Packs/Day Years Used Date Smoking Tobacco: Never Assessed [facility] Utilities Answer Date Recorded In the past 12 months has [employer], gas, oil, or water company threatened to shut off services in your [...] money to buy more. Never true 05/24/20 Within the past 12 months, t he [...] any time in the past 12 m [facility], were you homeless or living in a alf (including now)? No 05/24/2025 Comments Unknown Sex and Gender Information Value Date Recorded Sex Assigned at Female 05/23/2025 5:47 PM EDT Legal Sex Female 7:08 PM EST Gender Identity Female 05/23/2025 5:47 PM EDT Sexual Orientation Heterosexual (straight) 05/23 5:47 PM EDT documented as of this encounter Last Filed Vital Signs Vital Sign Reading Time Taken Comments Blood Pressure 135/67 05/24/2025 11:20 AM EDT Pulse 55 05/24/2025 11:20 AM EDT Temperature 36.3 C (97.3 F) 05/24/2025 9:06 AM EDT Respiratory Rate 9 05/24/2025 11:20 AM EDT Oxygen Saturation 100% 05/24/2025 11:20 AM EDT Inhaled Oxygen Concentration - - Weight 78.3 kg (172 lb 9.9 oz) 05/24/2025 8:26 A M EDT Height 154.9 cm (5' 1 ) 05/24/2025 10:31 AM EDT Body Mass Index 31.82 05/24/2025 2:57 [...] to theemergency department as a transfer from [facility] for concern of NSTEMI. Last evening [...] PE back in 2021 patient presented to [facility] for respiratory illness, underwent CTA which showed a right filling defect, howeverit was thought to be likely an artifact. Repeat scan a couple weeks later was unremarkable. During that time patient was started on AC, udnerwent DVT studies, which were ultimately negative and was evaluated by cataract lens generator, Dr. Wilks, who had low suspicion for PE. AC discontinued. The patient was seen by general cardiology and recommended invasive approach. On [facility] patient had distal RCA disease and had [...] with general cardiology within 2 weeks in [facility]. Discharge Medications New Medications Sig [...] nasal spray device Commonly known as: NARCAN Oldfield contents (4mg) into one nostril once. May [...] Case IDs Date Procedure Surgeon Location Status [id number] 05/24/25 CORONARY ANGIO W/LV Violet Arthur MD [facility]ANNER Comp Results from last 7 days Lab [...] from the original result were not included. [facility] Heart & Vascular [place] [facility] - Cardiac Catheterization Laboratory PATIENT DEMOGRAPHIC INFORMATION Name: Codie Fernández : 1970 55 y.o. Sex: female Gender: female Procedure Date: 05/24/2025 Referring Physician: Guerrero Estrada PCP: Provider Not In System PROCEDURE: Procedures: * CORONARY ANGIO W/LV * ZORAIDA PLACEMENT, 1ST ARTERY * IVUS 1ST VESSEL Marketing Trainee: Violet Arthur MD Fellow: Luis Alberto Pereira MD Track Repairer(s): none Indications for Procedure: NSTEMI PCI Indication: [...] JL3.5, JR 4 Guide Comments: N/A Hemostasis Method:Compressive band Intervention: After administration of additional heparin the RCA was engaged with a JR 4 guiding catheter, a short run-through wire was used to traverse the lesion and placed into the RPDA. The lesion was predilated with a 2.5 mm balloon. Thereafter a IVUS was performed using an Weavly eye IVUS catheter that showed a fibrofatty plaque with a distal reference diameter of 2.75 mm and proximal reference diameter of 3 mm. Thereafter, a 2.75 mm x 28 millimeter Synergy XD ZORAIDA was deployed across the lesion at nominal pressure. Next a 3 mm noncompliant balloon was used to post dilatethe proximal and mid segment of the stent. Final angiography revealed excellent result without spasm dissection or thrombus. IMPLANTS Implant Name Type Inv. Item Serial No. Estimating Engineer Lot No. LRB No. Used Action [id number] CORONARY STENT SYSTEM SYNERGY XD MR 2.75MM 28MM DELIVERY SYS - [id number] Stent [id number] CORONARY STENT SYSTEM SYNERGY XD MR 2.75MM 28MM DELIVERY SYS [employer] [id number] N/A 1 Implanted Complications: None Anesthesia: The [...] this patient that I request from a [facility] PA/EXECUTIVE DIRECTOR OF MARKETING/fellow/staff member. Fellow : Luis Alberto Pereira MD Attending: Violet Arthur MD [facility] Heart & Vascular [place] 05/24/2025 11:35 AM Ed Performed Us Cardiac Limited Result Date: 05/23/2025 Cardiac ( ED) Exam Information: Exam Category: Diagnostic (Manager Marketing Communications) Exam Occurrence: Initial exam Indication(s) for Exam: [...] by mouth daily. 90 tablet 3 05/26/2025 buPROPion (WELLBUTRIN XL) 300 MG 24 hr [...] elevated myocardial infarction) (HCC) Take 1 tablet (50 mg total) by mouth daily. Do not start before May 27, 2025. 90 tablet 3 05/27/2025 6 metoPROLOL SUCCINATE (TOPROL-XL) 25 MG 24 hr tabletIndication s:NSTEMI (non-ST elevated myocardial infarction) (HCC) Take 1 tablet (25 mg total) by mouth daily. 30 tablet 05/26/2025 5 montelukast (SINGULAIR) 10 MG tablet Take 1 tablet (10 mg total) by mouth nightly. naloxone (NARCAN) 4 mg/0.1 mL Liquid nasal spray deviceIndication s:At risk for abuse of opiates Oldfield contents (4mg) into one nostril once. May [...] Mayfield DO - 05/26/2025 12:35 PM EDT BLEACH BOILER FILLER SERVICE FOLLOW UP Chief Complaint: NSTEMI Assessment & Plan Assessment Codie Fernández is a 55 y.o. female with Pmhx significant for prior PE (2021), HTN, SPARKLE on CPAP, obesity s/p prior gastric sleeve and band procedure recently started on GLP-1 agonist who presented toO on 05/23 with abdominal pain and was transferred to for management of NSTEMI in setting of elevated hs-Tn with no ECG changes. She underwent coronary angiogram s/p PCI with ZORAIDA to distal RCA, tolerated well. No acute events overnight. LVEDP not elevated on [facility]. Plan - TTE on 05/26 shows an [...] and hyperlipidemia. -She will follow outpatient with [facility] for further monitoring until he establishes care in [place]. -Rest of care per primary team. She is okay to be discharged from cardiology perspective today. Discussed with attending. Plan is not finalized until attending attestation. Sign Trivoli Chaparro, DO 05/26/2025 12:35 PM Available via Zipmark Text 16/03 at Traffic Police Officer Consult Service Subjective Acute events overnight, chest [...] Hahn MD 05/26/2025 2:08 PM * Camilo Simon MED STUDENT - 05/26/2025 8:27 AM EDT [...] until she establishes care back home in [place]. Subjective 55 yo female w PMHx of [...] Intake/Output Summary (Last 24 hours) at 05/26/2025 0845 Last data filed at 05/25/2025 1807 Gross [...] Mayfield DO - 05/26/2025 1:43 PM EDT Special Librarian Inpatient Attestation I have personally interviewed and [...] complication, without long-term current use of insulin ([facility]) -A1c 7.7 -Diabetic diet, weight loss and [...] Order Indication - Cardiac (Non-Rhythm Related) Chest pain/PR/ACS Continue Telemetry?: Yes Cardiac (Non-Rhythm Related) # Diet: Diet Cardiac; 2 gm NA (Low Sodium); Low Fat (50gmfat, Low Chol, Low Sat Fat) # Code status: Full Code # Valladares catheter: No Active Urethral Catheter (Valladares) Order # Central lines: # Expected Date of Discharge: 05/25/2025 {Click to update EAMON: [id number]} VTE Time Out IMPROVE SCORE: 0 (05/23/2025 [...] ordered new labs if needed. Recent Labs 05/23/25 1819 05/24/25 0747 05/25/25 0755 WBC 10.1 7.1 8.7 HGB 9.8* 9.6* 9.9* HCT 32.9* 32.1* 33.8* PLT 371 327 386 Recent Labs 05/23/25 1819 05/24/25 0747 05/25/25 0755 NA 137 138 137 K [...] from the original result were not included. [facility] Heart & Vascular [place] [facility] - Cardiac Catheterization Laboratory PATIENT DEMOGRAPHIC INFORMATION Name: Codie Fernández : 1970 55 y.o. Sex: female Gender: female Procedure Date: 05/24/2025 Referring Physician: Guerrero Estrada PCP: Provider Not In System PROCEDURE: Procedures: * CORONARY ANGIO W/LV * ZORAIDA PLACEMENT, 1ST ARTERY * IVUS 1ST VESSEL Marketing Trainee: Violet Arthur MD Fellow: Luis Alberto Pereira MD Track Repairer(s): none Indications for Procedure: NSTEMI PCI Indication: [...] Thereafter a IVUS was performed using an Weavly eye IVUS catheter that showed a fibrofatty [...] Implant Name Type Inv. Item Serial No. Estimating Engineer Lot No. LRB No. Used Action [id number] CORONARY STENT SYSTEM SYNERGY XD MR 2.75MM 28MM DELIVERY SYS - [id number] Stent [id number] CORONARY STENT SYSTEM SYNERGY XD MR 2.75MM 28MM DELIVERY SYS [employer] [id number] N/A 1 Implanted Complications: None Anesthesia: The [...] this patient that I request from a [facility] PA/EXECUTIVE DIRECTOR OF MARKETING/fellow/staff member. Fellow : Luis Alberto Pereira MD Attending: Violet Arthur MD [facility] Heart & Vascular [place] 05/24/2025 11:35 AM Ed Performed Us Cardiac [...] chest pain, likely will need consideration for C. RV: Normal Aortic Root: <4 cm Medical [...] Mayfield DO - 05/25/2025 7:57 AM EDT BLEACH BOILER FILLER SERVICE FOLLOW UP Chief Complaint: NSTEMI Assessment [...] acute events overnight. LVEDP not elevated on [facility]. Plan - comprehensive TTE ordered for today. [...] and hyperlipidemia. -She will follow outpatient with associate professor of biology clinic. -Rest of care per primary team Discussed with attending. Plan is not finalized until attending attestation. Sign Marcia Mayfield DO 05/25/2025 7:58 AM Available via Eldorado Text 16/03 at Traffic Police Officer Consult Service Subjective No acute events overnight. Patient has remained chest pain-free. Objective Telemetry Reviewed: No issues Last Vitals Pulse:66,Resp:18,BP:(!) 106/54,SpO2:100 %,Weight:76.1 kg (167 lb 12.3 oz) Temp Last 24 hrs: Temp Min: 97.1 ??F (36.2 ??C) Max: 98.6 ??F (37 ??C) Intake/Output Summary (Last 24 hours) at 05/25/2025 0758 Last data filed at 05/25/2025 0207 Gross [...] PO, Daily Given, 80 mg at 05/24 07 fluticasone-vilanterol (BREO ELLIPTA) 100-25 MCG/ACT inhaler 1 puff 1 puff, IN, Daily Ordered folic acid (FOLVITE) tablet 1,000 mcg 1,000 mcg, PO, Daily Given, 1,000 mcg at 05/24 175 insulin lispro (HumaLOG/ADMELOG) 100 units/mL injection 1-5 [...] RN - 05/24/2025 3:53 PM EDT 05/24/25 9326 General Information Admission Type inpatient Arrived From Hospital Initial Information Source of Information patient;health record Patient Aware of Diagnosis yes Designated Caregiver for Discharge Coordination Do You Have a Designated Caregiver for Discharge? yes Designated Caregiver's Name Rosalva Delaney Caregiver's Relationship to Patient child support specialist's Living Environment People in Home spouse;child(scarlett), adult Current Living Ar[facility]ements [facility] ([facility] comments[facility] Primary Care Provided by self Provides [...] Living arrangement: Children;Spouse Type of residence: Other (town home - rental) Housing Stability In the last 12 months, was there a time when you were not able to pay the mortgage or rent on time?N In the past 12 months, how many times have you moved where you were living? 0 At any time in the past 12 months, were you homeless or living in a alf (including now)? 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 Last evening [...] PE back in 2021 patient presented to [facility] for respiratory illness, underwent CTA which showed a right filling defect, howeverit was thought to be likely an artifact. Repeat scan a couple weeks later was unremarkable. During that time patient was started on AC, udnerwent DVT studies, which were ultimately negative and was evaluated by cataract lens generator, Dr. Wilks, who had low suspicion for PE. AC discontinued. Patient also noted recent course of prednisone and doxycyline for suspected URI/PNA and asthma exacerbation. ED Course Vitals: Afrebrile, PA 67, RR 14, BP 123/73, Spo2 100% [...] output data in the 24 hours ending 05/23/25 2203 Physical Exam Constitutional: General: She is not [...] ECGs available Confirmed by MD Alexandr, Erik ([id number]) on 05/23/2025 9:16:25 PM Relevant data reviewed [...] Rosen MD Internal Medicine, PGY-2 Available on Eldorado-text and Tanneru [1] Allergies Allergen Reactions Latex [...] of gastric sleeve and [facility]. Patient initially presented to outside hospital with complaint of nausea, vomiting, upper abdominaldiscomfort. CT scan was concerning for possible pancreatitis in the appropriate setting and colitis. Troponins were elevated at [facility]. Also TTE was performed showing LVEF 35% with anteriorseptal wall, the apex, and apical lateral segments are akinetic. Started on heparin drip and transferred to [facility]. Currently asymptomatic. Denies prior cardiac disease, but has 2 brothers who have had open heart surgery. She is of [place] descent. Initial troponin here 136-> 93. Continue ASA, heparin drip. Interventional cardiology consult placed for the morning. In regards to possible pancreatitis on CT: Lipase at outside hospital was negative, currently does not have any pain. LFTs here are normal. Can monitor symptoms for now. Guerrero Estrada MD [facility]- Internal Medicine documented in this encounter Consult Notes * Roxanne Blanco MD - 05/23/2025 10:31 PM EDTAssociated Order(s): IP CONSULT TO CARDIOLOGY Images from the original note were not included. CARDIOLOGY FELLOWS SERVICE CONSULT NOTE Date of Consult: 05/24/2025 Patient's Primary Care Physician: Provider Not In System Physician Requesting Consult: Dr. Liset Estrada Primary Mainframe Software Developer: NA Reason for Consultation: NSTEMI Admit Date: [...] Blanco MD 05/24/2025 11:38 AM Available via Eldorado Text 16/03 at Traffic Police Officer Consult Service Subjective Chief Complaint Abdominal pain [...] yesterday and with the episodes of dry heaving,she reported sharp substernal chest pain. She did [...] PO, Daily Given, 80 mg at 05/24 725 insulin lispro (HumaLOG/ADMELOG) 100 units/mL injection 1-5 Units 1-5 Units, SC, TID with meals Ordered metoPROLOL TARTRATE (LOPRESSOR) tablet 12.5 mg 12.5 mg, PO, Q12H [facility] Ordered montelukast (SINGULAIR) tablet 10 mg 10 mg, PO, Nightly Given, 10 mg at 05/23 2223 naltrexone (REVIA) tablet 50 mg 50 mg, PO, Daily Given, 50 mg at 05/24 725 PANTOprazole (PROTONIX) EC tablet 40 mg 40 mg, PO, BID Given, 40 mg at 05/24 0725 ticagrelor (BRILINTA) tablet 90 mg 90 mg, [...] 10:07 AM EDT Patient well appearing. To cardiac cath lab manager at this time with this RN. Varinder [...] not in any acute distress. Plan for cardiac cath lab manager Varinder Khan RN 05/24/25 0949 * Varinder Khan RN - 05/24/2025 7:32 AM EDT Patient A&ox4 resting in HB. Reports L knee pain at this time but no other complaints. No headaches or dizziness. No N/V/D. Denies chest pain or SOB. RR is even and unlabored on room air. Plan for repeat labs and cardiac cath lab manager. Varinder Khan RN 05/24/25 0733 * Meena Brown RN - 05/24/2025 7:00 AM EDT Report given to Varinder WARREN and care transferred at this time. Meena Brown RN 05/24/25 07 * Varinder Khan RN - 05/24/2025 7:00 AM EDT I have acknowledged/accepted the hand off of care for this patient from KELVIN Robledo. We have verifiedthe telemetry order, leads are on the patient, alarms on, and a SB rhythm. Varinder Khan RN 05/24/25 07 * Meena Brown RN - 05/24/2025 5:09 [...] Plans for admission Meena Brown RN 05/23/25 7254 * Jess Seals RN - 05/23/2025 11:14 PM EDT Report given to Meena WARREN and care transferred at this time. Jess Seals RN 05/23/259 * Meena Brown RN - 05/23/2025 11:14 PM EDT I have acknowledged/accepted the hand off of care for this patient. Meena Brown RN 05/23/252313 * Jess Seals RN - 05/23/2025 10:25 PM EDT Pt resting on HB in NAD. RR even and unlabored on room air. Plan for ip admit. Bed locked and in lowest position. Call palmer within reach. Jess Seals RN 05/23/252 * Zuhari Laura MD - 05/23/2025 9:32 PM EDT [...] MD 05/23/25 9:32 PM Please contact via TigerText or at extension [phone] with any questions or concerns. This report was generated using Unity 4 Humanity Dictation software. Although every attempt has been made [...] same rate from OSH Rangel Richardson RN 05/23/251815 documented in this encounter Miscellaneous Notes * [...] to pt and family members, and a [place] citizen language HF workbook for pt's , who often prepares food for pt. 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 Miralax given. Pt's family to bedside again [...] * Assessment & Plan Note - Nicholas Hlil MD - 05/25/2025 2:08 PM EDTAssociated Problem(s): [...] complication, without long-term current use of insulin ([facility]) -A1c 7.7 -Diabetic diet, weight loss and [...] Tellez - 05/25/2025 9:08 AM EDT Per State of [place] General Statutes Sec: 38a-226c: Notification of determination communicated within 2business days of receipt of all information necessary to complete the review. Please fax authorization determination to [phone] or call [phone] * Case Coordination-Payor Communication - Laxmi Hay RN - 05/25/2025 8:21 AM EDT Admission Note Type: (Inpt/Obsv): Inpatient Date of Admission: 05/23/2025 Admitting Dx: NSTEMI (non-ST elevated myocardial infarction) (HCC) [I21.4] PMH: No past medical history on file. HPI: 55 y/o female. Codie Fernández w/ past medical history asthma, and COPD, presenting to the emergency department as a transfer from [facility] for concern of NSTEMI. Last evening [...] PE back in 2021 patient presented to [facility] for respiratory illness, underwent CTA which showed a right filling defect, howeverit was thought to be likely an artifact. Repeat scan a couple weeks later was unremarkable. During that time patient was started on AC, udnerwent DVT studies, which were ultimately negative and was evaluated by cataract lens generator, Dr. 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 Plan: - Cath this AM - oil field laborer diet protocol (clears past midnight) - Continue [...] PRN Obesity Diabetes Hx of Gastric Band 2010 Hx Sleeve Gastrectomy 2017 Home Meds: Naltrexone [...] start of shift. RT called and PRN duangellab was given with good effect. RRA CDI, no c/o pain. Plan for echo today and d/c. Juana Peters 05/25/2025 6:46 AM * Plan of Care - Jen Blevins RN - 05/24/2025 9:11 PM EDT Patient is alert and oriented X4, SR on telemetry, on room air. Pt admitted to floor from cardiac cath lab manager post procedure. Pt's radial access band removed by cardiac cath lab manager staff before arriving to floor. RRA site [...] exacerbation. 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 Planned Cardiac [...] patient wishes to proceed. Please contact the cardiac cath lab manager if the patient develops intractable chest pain, [...] substernal chest pain.Transferred from outside hospital to [facility] due to rising Troponins 31-----> 79. Additional [...] Lab Results Component Value Date/Time HSTNT 93 (HH) 05/24/2025 12:17 AM EK05/24/2025: 05/23/25 Component Name [...] High Sensitivity Troponin T <15 ng/L 93 () Delta (Change) <3 43 (H) proBNP, N-terminal [...] H&P, physical assessment, and educated on cardiac Video Game Producer procedure was approximately 60 minutes The following information is collected for participation in the [employer] CATH/PCI Registry (ACCNCDR) and is used for submission of data and may not be entirely consistent with the clinical evaluation. ACC-NCDR CathPCI V5 Collection Form History and Risk Factors Hypertension: No Dyslipidemia: No Diabetes mellitus: No Diabetes therapy: None Hx of CAD: Yes Prior PR: No Prior CABG: No Prior diagnostic cath: No Prior PCI: No Currently on dialysis: No Cerebrovascular disease: No Peripheral arterial disease: No Chronic lung disease: Yes Tobacco use: Never Clinical frailty score: Well Pre-Procedure Information Prior heart failure: No Electrocardiac assessment method: ECG The assessment result was abnormal. - No new antiarrhythmic therapy was received prior to evaluation within the cardiac cath lab manager. Abnormal assessment findings include: other electrocardiac abnormality T wave flattening in inferior leads, SB. Recent stress test performed: No Cardiac CTA performed: No Calcium score assessed: No LVEF assessed: No Indications and Presentation Indication(s) for cardiac cath lab manager visit: ACS less than or equal to [...] Rosen MD Internal Medicine, PGY-2 Available on Eldorado-text and Haiku * Plan of Care - Lizzie Alexander PA-C - 05/23/2025 3:25 PM EDT ACS-NSTEMI TRANSFER NOTE SITUATION I was called by provider Daryl Flanagan PA-C from [facility] in regards to Codie Fernández to be transferred to the [facility] for ACS- NSTEMI TRANSFER. They are requesting the transfer to [facility] for procedural intervention which is not available in their facility. Patient was seen in the Outside hospital/ clinic for abdominal pain, N/V/D BACKGROUND Past Medical History: Codie Fernández has no past medical history on file. Past Surgical History: Codie Fernández has no past surgical history on file. Allergies: Codie Fernández has no allergies on file. ASSESSMENT Codie Fernández is a 55-year-old female with past medical history of HTN, PE, and asthma who presented to [facility] today with abdominal pain, nausea, vomiting, [...] equivalent as soon as patient arrives to [facility]. Contact the above mentioned group(s) on-call [...] NSTEMI (non-ST elevated myocardial infarction) (HCC) Ordered: 05/24/2025 Amb Referral to Cardiac Rehabilitation [...] ORDERABLES Fi nal Result Performing Organization Address [facility] See Below * POCT Glucose, Fingerstick (05/25/2025 12:15 PM EDT) POC Glucose 87 65 - 99 mg/dL 05/25/2025 12:16 PM EDT Blood specimen / Unknown 05/25/2025 12:15 PM EDT 05/25/2025 12:16 PM EDT us Zuhair Laura MD POINT OF CARE TEST ORDERABLES Fi nal Result Performing Organization Address [facility] See Below * (ABNORMAL) POCT Glucose, Fingerstick (05/25/2025 8:35 AM EDT) POC Glucose 114(H) 65 - 99 mg/dL 05/25/2025 8:36 AM EDT Blood specimen / Unknown 05/25/2025 8:35 AM EDT 05/25/2025 8:36 AM EDT us Zuhair Laura MD POINT OF CARE TEST ORDERABLES Fi nal Result Performing Organization Address [facility] LAB See Below * (ABNORMAL) Comprehensive Metabolic Panel (05/25/2025 7:55 AM EDT) Glucose 115(H) 65 - 99 mg/dL 05/25/2025 10:11 AM EDT [facility] Comment:Fasting: <100 mg/dL, Non-Fasting: <200 mg/dL (ADA 2004) Blood Urea Nitrogen (BUN) 14 8 - 21 mg/dL 05/25/2025 10:11 AM T [facility] Creatinine 0.82 0.40 - 1.10 mg/dL 05/25/2025 10:11 AM [facility] eGFR 83 >59 05/25/2025 10:11 AM T [facility] Comment:CKD-EPI (2020) in mL /min/1.73 sq meters. Sodium 137 136 - 145 mmol/L 05/25/2025 10:11 AM [facility] Potassium 4.1 3.4 - 5.3 mmol/L 05/25/2025 10:11 AM [facility] Comment:Specimen hemolyzed. Results may be artifactually elevated. Chloride 101 98 - 107 mmol/L 05/25/2025 10:11 AM [facility] CO2 24 22 - 33 mmol/L 05/25/2025 10:11 AM [facility] Calcium 8.9 8.7 - 10.5 mg/dL 05/25/2025 10:11 AM [facility] Alkaline Phosphatase 80 32 - 122 U/L 05/25/2025 10:11 AM [facility] Aspartate Aminotrans (AST) 36 10 - 50 U/L 05/25/2025 10:11 AM [facility] Comment:Specimen hemolyzed. Results may be artifactually elevated. Alanine Aminotrans (ALT) 15 10 - 50 U/L 05/25/2025 10:11 AM [facility] Bilirubin, Total 0.4 0.2 - 1.0 mg/dL 05/25/2025 10:11 AM [facility] Protein, Total 6.4 6.3 - 8.3 g/dL 05/25/2025 10:11 AM [facility] Albumin 3.4(L) 3.5 - 5.0 g/dL 05/25/2025 10:11 AM [facility] BUN/Creatinine Ratio 17 10.0 - 25.0 Ratio 05/25/2025 10:11 AM [facility] Globulin 3.0 1.5 - 3.9 g/dL 05/25/2025 10:11 AM [facility] Albumin/Globulin Ratio 1.1 1.0 - 3.0 Ratio 05/25/2025 10:11 AM [facility] Anion Gap 12 7 - 17 05/25/2025 10:11 AM [facility] Blood Blood specimen / Unknown 05/25/2025 7:55 AM EDT 05/25/2025 9:14 AM EDT us Rajinder Davis MD LAB BLOOD ORDERABLES June channing Result [facility] [address] [place] [address], [facility] [address] [place] [address] * (ABNORMAL) Complete Blood Count, with Differential (05/25/2025 7:55 AM EDT) White Blood Cell Count 8.7 4.0 - 11.0 Thou/uL 05/25/2025 9:48 AM [facility] Platelet Count 386 150 - 450 Thou/uL 05/25/2025 9:48 AM [facility] Hemoglobin 9.9(L) 11.7 - 15.7 g/dL 05/25/2025 9:48 AM [facility] Hematocrit 33.8(L) 35.0 - 47.0 % 05/25/2025 9:48 AM [facility] Red Blood Cell Count 4.21 4.00 - 5.40 Mil/uL 05/25/2025 9:48 AM [facility] MCV 80 80 - 100 fL 05/25/2025 9:48 AM [facility] MCH 23.5(L) 27.0 - 31.0 pg 05/25/2025 9:48 AM [facility] MCHC 29.3(L) 30.0 - 36.0 g/dL 05/25/2025 9:48 AM [facility] RDW 17.8(H) 11.5 - 14.5 % 05/25/2025 9:48 AM [facility] MPV 10.2 7.5 - 12.5 fL 05/25/2025 9:48 AM [facility] Neutrophils Auto 68.6 % 05/25/20 9:48 AM [facility] Immature Granulocytes 1.6 % 05/25/2025 9:48 AM [facility] Lymphocytes Auto 20.6 % 05/25/20 9:48 AM [facility] Monocytes Auto 6.1 % 05/25/2025 9:48 AM [facility] Eosinophils Auto 2.5 % 05/25/20 9:48 AM [facility] Basophils Auto 0.6 % 05/25/2025 9:48 AM EDT [facility] Abs Neutrophils Auto 5.99 2.00 - 7.50 Thou/uL 05/25/2025 9:48 AM EDT [facility] Abs Immature Granulocytes 0.14(H) 0.00 - 0.10 Thou/uL 05/25/2025 9:48 AM EDT [facility] Abs Lymphocytes Auto 1.80 1.50 - 4.50 Thou/uL 05/25/2025 9:48 AM EDT [facility] Abs Monocytes Auto 0.53 0.20 - 1.50 Thou/uL 05/25/2025 9:48 AM EDT [facility] Abs Eosinophils Auto 0.22 0.00 - 0.70 Thou/uL 05/25/2025 9:48 AM EDT [facility] Abs Basophils Auto 0.05 0.00 - 0.20 Thou/uL 05/25/2025 9:48 AM EDT [facility] Blood Blood specimen / Unknown 05/25/2025 7:55 AM EDT 05/25/2025 9:14 AM EDT Rajinder Davis MD LAB BLOOD [place] [address], [place] [address] * (ABNORMAL) POCT Glucose, Fingerstick (05/25/2025 2:30 [...] 2:02 AM EDT 05/25/2025 2:10 AM EDT Result Jeffrey Laura MD POINT OF CARE TEST ORDERABLES Fi nal Result Performing Organization Address [facility] LAB See Below * POCT Glucose, Fingerstick (05/24/2025 9:00 PM EDT) POC Glucose 82 65 - 99 mg/dL 05/24/2025 9:00 PM EDT Blood specimen / Unknown 05/24/2025 9:00 PM EDT 05/24/2025 9:01 PM EDT Result Jeffrey Laura MD POINT OF CARE TEST ORDERABLES Fi nal Result Performing Organization Address [facility] LAB See Below * POCT Glucose, Fingerstick (05/24/2025 4:56 PM EDT) POC Glucose 78 65 - 99 mg/dL 05/24/2025 4:58 PM EDT Blood specimen / Unknown 05/24/2025 4:56 PM EDT 05/24/2025 4:58 PM EDT us Zuhair Laura MD POINT OF CARE TEST ORDERABLES Fi nal Result Performing Organization Address [facility] LAB See Below * POCT Glucose, Fingerstick [...] DEVICE Final R esult Performing Organization Address [facility] Co de Phone Number HOSPITAL LAB See Below * CC CORONARY ANGIO W/LV, CC ZORAIDA PLACEMENT, 1ST ARTERY, CC IVUS 1ST VESSEL (05/24/2025 11:16 AM EDT) Anatomical Region Laterality Modality Radiographic Fanta ging Narrative 05/24/2025 5:56 PM EDT Table formatting from the original result was not included. Images from the original result were not included. [facility] Heart & Vascular [place] [facility] - Cardiac Catheterization Laboratory PATIENT DEMOGRAPHIC INFORMATION Name: Codie Fernández : 1970 55 y.o. Sex: female Gender: female Procedure Date: 05/24/2025 Referring Physician: Guerrero Estrada PCP: Provider Not In System PROCEDURE: Procedures: * CORONARY ANGIO W/LV * ZORAIDA PLACEMENT, 1ST ARTERY * IVUS 1ST VESSEL Marketing Trainee: Violet Arthur MD Fellow: Luis Alberto Pereira MD Track Repairer(s): none Indications for Procedure: NSTEMI PCI Indication: [...] Thereafter a IVUS was performed using an A.C. Moore IVUS catheter that showed a fibrofatty plaque [...] Implant Name Type Inv. Item Serial No. Estimating Engineer Lot No. LRB No. Used Action [id number] CORONARY STENT SYSTEM SYNERGY XD MR 2.75MM 28MM DELIVERY SYS - [id number] Stent [id number] CORONARY STENT SYSTEM SYNERGY XD MR 2.75MM 28MM DELIVERY SYS 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 Fellow : Luis Alberto Pereira MD Attending: Violet Arthur MD [facility] [place] 05/24/2025 11:35 AM Cardiac Protocol CAD Percutaneous [...] Status: Urgent PCI Indication: non-STEMI. 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 Blood specimen / Unknown 05/24/2025 11:00 AM EDT 05/24/2025 11:24 AM EDT us Zuhair Laura MD BLOOD BANK TEST ORDERABLES Final Result Performing Organization Address [facility]/[place] [address], [address] [address] * Type and Screen (05/24/2025 10:45 AM EDT) ABO/Rh O POSITIVE 05/24/2025 12:23 PM EDT [facility] Antibody Screen NEGATIVE 12:23 PM EDT [facility] Specimen Expiration 05/27/2025 05/24/2025 12:23 PM EDT [facility] Blood Blood specimen / Unknown 05/24/2025 10:45 AM EDT 05/24/2025 11:24 AM EDT us Violet Arthur MD BLOOD BANK TEST ORDERABLES Final Result Performing Organization Address City/State/[facility] [place] [address], [place] [address] * LIPID PANEL (05/24/2025 7:47 AM EDT) Cholesterol, Total 183 <200 mg/dL 2024 9:16 AM [facility] Triglycerides 62 <150 mg/dL 05/24/2025 9:16 AM [facility] Cholesterol, HDL 79 >39 mg/dL 05/24/20 9:16 AM [facility] Estimated LDL 92 <130 mg/dL 05/24/2025 9:16 AM [facility] Comment: Estimated LDL was calculated using the Friedewald equation NCEP Guidelines: < 100 mg/dL Optimal 100 - 129 mg/dL Near Optimal/Above Optimal 130 - 159 mg/dL Borderline High 160 - 189 mg/dL High >/= 190 mg/dL Very High Cholesterol/HDL Ratio 2.3 0.0 - 5.0 Ratio 05/24/2025 9:16 AM [facility] Comment: Relative Risk Ratio - Male Ratio - Female 0.5 3.4 3.3 1.0 5.0 4.4 2.0 9.6 7.1 3.0 23.4 11.0 05/24/2025 7:47 AM EDT 05/24/2025 8:29 AM EDT us Guerrero Estrada MD LAB BLOOD ORDERABLES Final Resu lt Performing Organization Address City/[facility]/ZIP Co de Phone Number [address] [address], [address] [address] * Heparin Assay (Anti Xa) (05/24/2025 7:47 AM EDT) Anti Xa 0.46 IU/mL 05/24/2025 9:25 AM EDT [facility] Comment: (NOTE) Heparin Thromboembolic/Standard/Full Dose Protocol: [...] LOW MOLECULAR WEIGHT 05/24/2025 5:09 AM EDT [facility] Blood Blood specimen / Unknown 05/24/2025 7:47 AM EDT 05/24/2025 8:30 AM EDT us Bill Pratt MD LAB BLOOD ORDERABLES Final Resu lt Performing Organization Address City/[facility]/ZIP Co de Phone Number [address] [address], [address] [address] * T4, Free (05/24/2025 7:47 AM EDT) T4, Free 1.17 0.80 - 1.90 ng/dL 05/24/2025 9:16 AM EDT [facility] Blood Blood specimen / Unknown 05/24/2025 7:47 AM EDT 05/24/2025 8:29 AM EDT us Guerrero Estrada MD LAB BLOOD ORDERABLES Final Resu lt Performing Organization Address City/[facility]/ZIP Co de Phone Number [address] [address], [address] [address] * Vitamin B12 (05/24/2025 7:47 AM EDT) Vitamin B12 346 243 - 894 pg/mL 05/24/2025 9:16 AM EDT [facility] Blood Blood specimen / Unknown 05/24/2025 7:47 AM EDT 05/24/2025 8:29 AM EDT us Guerrero Estrada MD LAB BLOOD ORDERABLES Final Resu lt Performing Organization Address [facility] Co de Phone Number [address] [address], [address] [address] * Iron and Total Iron Binding Capacity (05/24/2025 7:47 AM EDT) Iron 105 59 - 151 ug/dL 05/24/2025 9:16 AM EDT [facility] UIBC 182 112 - 346 ug/dL 05/24/2025 9:16 AM EDT [facility] Total Iron Binding Capacity 287 100 - 400 ug/dL 05/24/2025 9:16 AM EDT [facility] Iron Sat 37 20 - 50 % 05/24/2025 9:16 AM EDT [facility] Blood Blood specimen / Unknown 05/24/2025 7:47 AM EDT 05/24/2025 8:29 AM EDT us Guerrero Estrada MD LAB BLOOD ORDERABLES Final Resu lt Performing Organization Address City/[facility]/ZIP Co de Phone Number [address] [address], [address] [address] * (ABNORMAL) Ferritin (05/24/2025 7:47 AM EDT) Ferritin 20(L) 30 - 400 ug/L 05/24/2025 9:16 AM [facility] Blood Blood specimen / Unknown 05/24/2025 7:47 AM EDT 05/24/2025 8:29 AM EDT Guerrero Estrada MD LAB BLOOD ORDERABLES Final Resu lt [address] [address], [address] [address] * Basic Metabolic Panel (05/24/2025 7:47 AM EDT) Glucose 80 65 - 99 mg/dL 05/24/2025 9:16 AM [facility] Comment:Fasting: <100 mg/dL, Non-Fasting: <200 mg/dL (ADA 2004) Blood Urea Nitrogen (BUN) 13 8 - 21 mg/dL 05/24/2025 9:16 AM [facility] Creatinine 0.99 0.40 - 1.10 mg/dL 05/24/2025 9:16 AM [facility] eGFR 67 >59 05/24/2025 9:16 AM [facility] Comment:CKD-EPI (2020) in mL /min/1.73 sq meters. Sodium 138 136 - 145 mmol/L 05/24/2025 9:16 AM [facility] Potassium 4.2 3.4 - 5.3 mmol/L 05/24/2025 9:16 AM [facility] Chloride 103 98 - 107 mmol/L 05/24/2025 9:16 AM [facility] CO2 26 22 - 33 mmol/L 05/24/2025 9:16 AM [facility] Anion Gap 9 7 - 17 05/24/2025 9:16 AM [facility] Calcium 8.7 8.7 - 10.5 mg/dL 05/24/2025 9:16 AM [facility] BUN/Creatinine Ratio 13 10.0 - 25.0 Ratio 05/24/2025 9:16 AM [facility] Blood Blood specimen / Unknown 05/24/2025 7:47 AM EDT 05/24/2025 8:29 AM EDT us Guerrero Estrada MD LAB BLOOD ORDERABLES Final Resu lt Performing Organization Address City/[facility]/[place] [address], [address] [address] * Folate Level (05/24/2025 7:47 AM EDT) Pathologist [facility] Folate, Serum 17.9 >7.2 ng/mL 05/24/2025 9:28 AM EDT [facility] Blood Blood specimen / Unknown 05/24/2025 7:47 AM EDT 05/24/2025 8:29 AM EDT us Guerrero Estrada MD LAB BLOOD ORDERABLES Final Resu lt Performing Organization Address [facility] [place] [address], [address] [address] * (ABNORMAL) Complete Blood Count WITHOUT Differential - Early AM (05/24/2025 7:47 AM EDT) [facility] White Blood Cell Count 7.1 4.0 - 11.0 Thou/uL 05/24/2025 8:44 AM [facility] Platelet Count 327 150 - 450 Thou/uL 05/24/2025 8:44 AM [facility] Hemoglobin 9.6(L) 11.7 - 15.7 g/dL 05/24/2025 8:44 AM [facility] Hematocrit 32.1(L) 35.0 - 47.0 % 05/24/2025 8:44 AM [facility] Red Blood Cell Count 3.99(L) 4.00 - 5.40 Mil/uL 05/24/2025 8:44 AM T [facility] MCV 81 80 - 100 fL 05/24/2025 8:44 AM [facility] MCH 24.1(L) 27.0 - 31.0 pg 05/24/2025 8:44 AM EDT [facility] MCHC 29.9(L) 30.0 - 36.0 g/dL 05/24/2025 8:44 AM EDT [facility] RDW 17.5(H) 11.5 - 14.5 % 05/24/2025 8:44 AM EDT [facility] MPV 9.7 7.5 - 12.5 fL 05/24/2025 8:44 AM EDT [facility] Blood Blood specimen / Unknown 05/24/2025 7:47 AM EDT 05/24/2025 8:29 AM EDT us Guerrero Estrada MD LAB BLOOD ORDERABLES Final Resu lt Performing Organization Address [facility]/[place] [address], [place] [address] * POCT Glucose, Fingerstick (05/24/2025 7:21 AM EDT) POC Glucose 94 65 - 99 mg/dL 05/24/2025 7:21 AM EDT Blood specimen / Unknown 05/24/2025 7:21 AM EDT 05/24/2025 7:22 AM EDT us Zuhair Laura MD POINT OF CARE TEST ORDERABLES Fi nal Result Performing Organization Address City/[facility]/ZIP Co de Phone Number HOSPITAL LAB See Below * Heparin Assay (Anti-Xa) (05/24/2025 2:40 AM EDT) Anti Xa 0.52 IU/mL 05/24/2025 3:26 AM EDT [facility] Comment: (NOTE) Heparin Thromboembolic/Standard/Full Dose Protocol: [...] IV HEPARIN, UNFRACTIONATED 05/23/2025 8:21 PM EDT [facility] Blood Blood specimen / Unknown 05/24/2025 2:40 AM EDT 05/24/2025 3:05 AM EDT us Guerrero Estrada MD LAB BLOOD ORDERABLES Final Resu lt Performing Organization Address City/[facility]/[place] [address], [place] [address] * (ABNORMAL) proBNP, N-terminal (05/24/2025 12:17 AM EDT) proBNP, N-terminal 2,273(H) <125 pg/mL 05/24/2025 4:37 AM EDT [facility] 05/24/2025 12:1 7 AM EDT 05/24/2025 12:23 AM EDT us Guerrero Estrada MD LAB BLOOD ORDERABLES Final Resu lt Performing Organization Address [facility] [place] [address], [address] [address] * T4, FREE (05/24/2025 12:17 AM EDT) T4, Free 1.26 0.80 - 1.90 ng/dL 05/24/2025 4:37 AM EDT [facility] 05/24/2025 12:1 7 AM EDT 05/24/2025 12:23 AM EDT us Guerrero Estrada MD LAB BLOOD ORDERABLES Final Resu lt Performing Organization Address [facility] [place] [address], [address] [address] * (ABNORMAL) High Sensitivity Troponin T (Once) (05/24/2025 12:17 AM EDT) High Sensitivity Troponin T 93(HH) <15 ng/L 05/24/2025 12:50 AM EDT [facility] Comment:Recurring Critical R esult. Previously phoned. Delta (Change) 43(H) <3 05/24/2025 12:50 AM EDT [facility] Comment:Decreased Blood Blood specimen / Unknown 05/24/2025 12:17 AM EDT 05/24/2025 12:23 AM EDT Guerrero Estrada MD LAB BLOOD ORDERABLES Final Resu lt [address] [address], [address] [address] * Ed Performed [facility] (05/23/2025 8:44 PM EDT) Anatomical Region Laterality Modality Ultrasound 05/23/2025 8:34 PM EDT Narrative 05/23/2025 9:20 PM EDT Cardiac ( ED) Exam Information: Exam Category: Diagnostic (Manager Marketing Communications) Exam Occurrence: Initial exam Indication(s) for Exam: [...] 7.7(H) <5.7 % 05/24/2025 1:26 AM EDT [facility] Comment: A1c% Interpretation 5.7 - 6.0 Increase risk of diabetes 6.1 - 6.4 Higher risk of diabetes > or = 6.5 Consistent with diabetes Diabetes Care, 33(Supp 1):S1-S61, 2009 Estimated Average Glucose 174 mg/dL 05/24/2025 1:26 AM EDT [facility] Blood specimen / Unknown 05/23/2025 6:19 PM EDT 05/23/2025 6:54 PM EDT us Zuhair Laura MD LAB BLOOD [place] [address], [address] [address] * (ABNORMAL) TSH, HIGHLY SENSITIVE (05/23/2025 6:19 PM EDT) TSH, Highly Sensitive 4.75(H) 0.27 - 4.20 mIU/L 05/23/2025 11:03 PM EDT [facility] 05/23/2025 6:19 PM EDT 05/23/2025 6:54 PM EDT us Zuhair Laura MD LAB BLOOD ORDERABLES Final Resul t Performing Organization Address City/[facility]/[place] [address], [place] [address] * Heparin Assay (Anti-Xa) (05/23/2025 6:19 PM EDT) Pathologist [facility] Anti Xa 0.57 IU/mL 05/23/2025 7:14 PM EDT [facility] Comment: (NOTE) Heparin Thromboembolic/Standard/Full Dose Protocol: [...] IV HEPARIN, UNFRACTIONATED 05/23/2025 6:54 PM EDT [facility] 05/23/2025 6:19 PM EDT 05/23/2025 6:54 PM EDT us Zuhair Laura MD LAB BLOOD [place] [address], [address] [address] * (ABNORMAL) High Sensitivity Troponin T (05/23/2025 6:19 PM EDT) [facility] High Sensitivity Troponin T 136(HH) <15 ng/L 05/23/2025 7:37 PM EDT [facility] Delta (Change) NO PREVIOUS RESULT <3 05/23/2025 7:37 PM EDT [facility] 05/23/2025 6:19 PM EDT 05/23/2025 6:54 PM EDT us Zuhair Laura MD LAB BLOOD ORDERABLES Final Resul t Performing Organization Address City/[facility]/[place] [address], [place] [address] * (ABNORMAL) Partial Thromboplastin Time (PTT) (05/23/2025 6:19 PM EDT) [facility] Anticoagulant IV HEPARIN, UNFRACTIONATED 05/23/2025 5:45 PM EDT [facility] Partial Thromboplastin Time (PTT) 72(H) 25 - 36 seconds 05/23/2025 7:14 PM EDT [facility] Blood Blood specimen / Unknown 05/23/2025 6:19 PM EDT 05/23/2025 6:54 PM EDT us Zuhair Laura MD LAB BLOOD ORDERABLES Final Resul t Performing Organization Address City/[facility]/[place] [address], [place] [address] * Protime-INR (05/23/2025 6:19 PM EDT) [facility] Anticoagulant IV HEPARIN, UNFRACTIONATED 05/23/2025 5:45 PM EDT [facility] Prothrombin Time (PT) 12.0 10.0 - 13.5 seconds 05/23/2025 7:14 PM EDT [facility] INR 1.0 05/23/2025 7:14 PM EDT [facility] Comment:INR Therapeutic Rang es: Standard dose anticoagulant 2.0 to 3.0, High dose anticoagulant 2.5-3.5. Blood Blood specimen / Unknown 05/23/2025 6:19 PM EDT 05/23/2025 6:54 PM EDT us Zuhair Laura MD LAB BLOOD ORDERABLES Final Resul t Performing Organization Address City/[facility] [place] [address], [place] [address] * Magnesium (05/23/2025 6:19 PM EDT) Magnesium 2.0 1.6 - 2.7 mg/dL 05/23/2025 7:37 PM EDT [facility] Blood Blood specimen / Unknown 05/23/2025 6:19 PM EDT 05/23/2025 6:54 PM EDT us Zuhair Laura MD LAB BLOOD ORDERABLES Final Resul t Performing Organization Address [facility] [place] [address], [place] [address] * Comprehensive Metabolic Panel (05/23/2025 6:19 PM EDT) Glucose 78 65 - 99 mg/dL 05/23/2025 7:37 PM T [facility] Comment:Fasting: <100 mg/dL, Non-Fasting: <200 mg/dL (ADA 2005) Blood Urea Nitrogen (BUN) 11 8 - 21 mg/dL 05/23/2025 7:37 PM EDT [facility] Creatinine 0.86 0.40 - 1.10 mg/dL 05/23/2025 7:37 PM T [facility] eGFR 79 >59 05/23/2025 7:37 PM T [facility] Comment:CKD-EPI (2020) in mL /min/1.73 sq meters. Sodium 137 136 - 145 mmol/L 05/23/2025 7:37 PM EDT [facility] Potassium 4.1 3.4 - 5.3 mmol/L 05/23/2025 7:37 PM [facility] Chloride 101 98 - 107 mmol/L 05/23/2025 7:37 PM [facility] CO2 24 22 - 33 mmol/L 05/23/2025 7:37 PM [facility] Calcium 8.8 8.7 - 10.5 mg/dL 05/23/2025 7:37 PM [facility] Alkaline Phosphatase 87 32 - 122 U/L 05/23/2025 7:37 PM [facility] Aspartate Aminotrans (AST) 28 10 - 50 U/L 05/23/2025 7:37 PM [facility] Alanine Aminotrans (ALT) 15 10 - 50 U/L 05/23/2025 7:37 PM [facility] Bilirubin, Total 0.4 0.2 - 1.0 mg/dL 05/23/2025 7:37 PM [facility] Protein, Total 6.4 6.3 - 8.3 g/dL 05/23/2025 7:37 PM [facility] Albumin 3.5 3.5 - 5.0 g/dL 05/23/2025 7:37 PM [facility] BUN/Creatinine Ratio 13 10.0 - 25.0 Ratio 05/23/2025 7:37 PM [facility] Globulin 2.9 1.5 - 3.9 g/dL 05/23/2025 7:37 PM [facility] Albumin/Globulin Ratio 1.2 1.0 - 3.0 Ratio 05/23/2025 7:37 PM [facility] Anion Gap 12 7 - 17 05/23/2025 7:37 PM [facility] Blood Blood specimen / Unknown 05/23/2025 6:19 PM EDT 05/23/2025 6:54 PM EDT us Zuhair Laura MD LAB BLOOD ORDERABLES Final Resul t [address] [address], [address] [id number] * (ABNORMAL) Complete Blood Count, with Differential (05/23/2025 6:19 PM EDT) White Blood Cell Count 10.1 4.0 - 11.0 Thou/uL 05/23[facility]2025 7[facility] Platelet Count 371 150 - 450 Thou/uL 05/23/2025 7:12 PM [facility] Hemoglobin 9.8(L) 11.7 - 15.7 g/dL 05/23/2025 7:12 PM [facility] Hematocrit 32.9(L) 35.0 - 47.0 % 05/23/2025 7:12 PM [facility] Red Blood Cell Count 4.15 4.00 - 5.40 Mil/uL 05/23/2025 7:12 PM [facility] MCV 79(L) 80 - 100 fL 05/23/2025 7:12 PM [facility] MCH 23.6(L) 27.0 - 31.0 pg 05/23/2025 7:12 PM [facility] MCHC 29.8(L) 30.0 - 36.0 g/dL 05/23/2025 7:12 PM [facility] RDW 17.1(H) 11.5 - 14.5 % 05/23/2025 7:12 PM [facility] MPV 10.1 7.5 - 12.5 fL 05/23/2025 7:12 PM [facility] Neutrophils Auto 67.8 % 05/23[facility]20 7[facility] Immature Granulocytes 1.7 % 05/23/2025 7:12 PM [facility] Lymphocytes Auto 21.1 % 05/23/20 7:12 PM [facility] Monocytes Auto 7.4 % 05/23/2025 7:12 PM [facility] Eosinophils Auto 1.5 % 05/23/20 7:12 PM [facility] Basophils Auto 0.5 % 05/23/2025 7:12 PM [facility] Abs Neutrophils Auto 6.82 2.00 - 7.50 Thou/uL 05/23/2025 7:12 PM [facility] Abs Immature Granulocytes 0.17(H) 0.00 - 0.10 Thou/uL 05/23/2025 7:12 PM EDT [facility] Abs Lymphocytes Auto 2.12 1.50 - 4.50 Thou/uL 05/23/2025 7:12 PM EDT [facility] Abs Monocytes Auto 0.74 0.20 - 1.50 Thou/uL 05/23/2025 7:12 PM EDT [facility] Abs Eosinophils Auto 0.15 0.00 - 0.70 Thou/uL 05/23/2025 7:12 PM EDT [facility] Abs Basophils Auto 0.05 0.00 - 0.20 Thou/uL 05/23/2025 7:12 PM EDT [facility] Blood Blood specimen / Unknown 05/23/2025 6:19 PM EDT 05/23/2025 6:54 PM EDT us Zuhair Laura MD LAB BLOOD [place] [address], [address] [id number] * 10 Min ECG 12 lead (05/23/2025 5:25 PM EDT) Ventricular rate 69 BPM EKG [facility] Atrial rate 69 BPM EKG [facility] P-R interval 162 ms EKG [facility] QRS duration 78 ms EKG [facility] Q-T interval 446 ms EKG [facility] QTC calculation (Bazett) 478 ms EKG [facility] P axis 27 degrees EKG [facility] R axis 8 degrees EKG [facility] T axis 18 degrees EKG [facility] 05/23/2025 5:25 PM EDT Narrative EKG [facility] - 05/23/2025 9:16 PM EDT Normal sinus rhythm Septal infarct , age undetermined Abnormal ECG No previous ECGs available Confirmed by MD Strange Shishir ([id number]) on 05/23/2025 9:16:25 PM Procedure Note Eirk Strange MD - 05/23/2025 Normal sinus rhythm Septal infarct , age undetermined Abnormal ECG No previous ECGs available Confirmed by MD Strange Shishir ([id number]) on 05/23/2025 9:16:25 PM us Bill Pratt MD ECG ORDERABLES Final Result EKG [facility] documented in this encounter Visit Diagnoses Not on filedocumented in this encounter Admitting Diagnoses Diagnosis NSTEMI (non-ST elevated myocardial infarction) (HCC) Acute myocardial infarction, subendocardial infarction, episode of care unspecified documented in this encounter Administered Medications Inactive Administered Medications - up to 1 most recent administrations Medication Order MAR Action Action Date Dose Rate Site sodium chloride 0.9% (NS) infusion Continuous PRN, Starting on Thu05/24/25 at 1031, Intra-Procedure (Cath) New Bag 05/24/2025 10:31 AM EDT 100 mL/hr 100 mL/hr acetaminophen (TYLENOL) tablet 650 mg 650 mg, Oral, Every 6 hours PRN, mild pain 1-3, fever greater than 100.4 degrees F, Starting on Thu05/23/25 at 2149 aspirin enteric coated (ECOTRIN LOW STRENGTH) tablet 81 mg 81 mg, Oral, Daily, First dose (after last modification) on Drea 05/25/25 at 0900, Do not crush, chew, or [...] Given 05/25/2025 8:58 PM EDT 100 mg fentaNYL 100 MCG/2ML injection As needed, Starting on Thu05/24/25 at 1036, Intra-Procedure (Cath) Given 05/24/2025 11:06 AM EDT 25 mcg fluticasone-vilanterol (BREO ELLIPTA) 100-25 MCG/ACT inhaler 1 [...] = 15 grams of glucose. heparin (porcine) 1000 unit/mL injection As needed, Starting on Thu05/24/25 at 1037, Intra-Procedure (Cath) Given 05/24/2025 10:37 AM EDT 5,000 Units Right Arm heparin (porcine) 1000 unit/mL injection As needed, Starting on Thu05/24/25 at 1046, Intra-Procedure (Cath) Given 05/24/2025 10:46 AM EDT 3,000 Units heparin (porcine) 1000 unit/mL injection As needed, Starting on Thu05/24/25 at 1105, Intra-Procedure (Cath) Given 05/24/2025 11:05 AM EDT 2,000 Units insulin lispro (HumaLOG/ADMELOG) 100 units/mL injection 1-5 [...] 340, administer 5 units AND notify provider iohexol (OMNIPAQUE) 350 mg/mL injection As needed, Starting on Thu05/24/25 at 1119, Intra-Procedure (Cath) Given 05/24/2025 11:19 AM EDT 80 mL ipratropium-albuterol (DUONEB) 0.5-2.5 mg/3 mL nebulizer solution 3 mL 3 mL, Nebulization, Every 4 hours PRN, wheezing, shortness of breath, Starting on Thu05/23/25 at 2141, Albuterol expressed in base strength. Albuterol sulfate 3 mg = albuterol (base) 2.5 mg., Albuterol or Duoneb Indication: COPD, Asthma Given 05/25/2025 6:37 AM EDT 3 mL lidocaine (XYLOCAINE) 2 % injection As needed, Starting on Thu05/24/25 at 1035, Intra-Procedure (Cath) Given 05/24/2025 10:35 AM EDT 5 mL Right Radial losartan (COZAAR) tablet 50 mg 50 mg, [...] Given 05/26/2025 9:01 AM EDT 25 mg midazolam (VERSED) 1 mg/mL injection As needed, Starting on Thu05/24/25 at 1036, Intra-Procedure (Cath) Given 05/24/2025 11:06 AM EDT 0.5 mg montelukast (SINGULAIR) tablet 10 mg 10 [...] Given 05/26/2025 9:02 AM EDT 50 mg nitroGLYCERCIN 100 mcg/mL injection As needed, Starting on Thu05/24/25 at 1038, Intra-Procedure (Cath) Given 05/24/2025 11:01 AM EDT 200 mcg Right Arm ondansetron (ZOFRAN) injection 4 mg 4 mg, Intravenous, Every 6 hours PRN, nausea, vomiting, Starting on Thu05/24/25 at 1133 PANTOprazole (PROTONIX) EC tablet 40 mg 40 mg, Oral, 2 times daily, First dose on Thu05/23/25 at 2142, *DO NOT CHEW OR CRUSH* Given 05/26/2025 9:01 AM EDT 40 mg polyethylene glycol (miraLAx) packet 17 g 17 [...] Given 05/26/2025 9:01 AM EDT 90 mg ticagrelor (BRILINTA) tablet As needed, Starting on Thu05/24/25 at 1051, Intra-Procedure (Cath) Given 05/24/2025 10:51 AM EDT 180 mg verapamil (ISOPTIN) injection As needed, Starting on Thu05/24/25 at 1038, Intra-Procedure (Cath) Given 05/24/2025 10:38 AM EDT 5 mg Right Arm documented in this encounter Active and Recently Administered Medications Times are shown in EDT. Scheduled Medication Order 05/24/2025 05/25/2025 05/26/2025 aspirin enteric coated (ECOTRIN LOW STRENGTH) tablet 81 mg (CANCELED) 81 mg, Oral, Daily, First dose on Thu05/24/25 at 0900, Do not crush, chew, or split tablet. 0725 (Given - Provider: Varinder Khan RN)1024 (OCT Hold - Provider: Automatic Transfer Provider - Reason: Unreviewed Transfer Orders)1131 (OCT Unhold - Provider: Luis Alberto Pereira MD) aspirin enteric coated (ECOTRIN LOW STRENGTH) tablet 81 mg 81 mg, Oral, Daily, First dose (after last modification) on Drea 05/25/25 at 0900, Do not crush, chew, or split tablet. 1140 (Given - Provider: Jen Blevins RN) 0901 (Given - Provider: Jazmyne Colbert RN) atorvastatin (LIPITOR) tablet 80 mg 80 mg, Oral, Daily, First dose on Thu05/24/25 at 0900 0725 (Given - Provider: Varinder Khan RN)1024 (OCT Hold - Provider: Automatic Transfer Provider - Reason: Unreviewed Transfer Orders)1133 (MAR Unhold - Provider: Gayle Lee RN) 1142 (Given - Provider: Jen Blevins RN) 0901 (Given - Provider: Jazmyne Colbert, KELVIN) docusate sodium (COLACE) capsule 100 mg 100 mg, Oral, 2 times daily, First dose on Drea 05/25/25 at 2100 2058 (Given - Provider: Marisol Avila RN) 0903 (Not Given - Provider: Jazmyne Colbert RN - Reason: Dose held per order parameters) doxycycline (VIBRAMYCIN) capsule 100 mg (COMPLETED) 100 mg, Oral, Once, On Thu05/24/25 at 1600, For 1 dose, All antimicrobials used at [facility] require an indication. Please complete the following documentation. Bacterial Infection Documented, Type of Therapy: Continued from [facility], Indication: Cellulitis 1755 (Given - Provider: Jen Blevins RN) fluticasone-vilanterol (BREO ELLIPTA) 100-25 MCG/ACT inhaler 1 puff 1 puff, Inhalation, Daily, First dose on Thu05/25/25 at 0900, Rinse mouth with water after inhalation and spit. 1152 (Given - Provider: Jen Blevins RN) 0903 (Given - Provider: Jazmyne Colbert, KELVIN) folic acid (FOLVITE) tablet 1,000 mcg 1,000 mcg, Oral, Daily, First dose on Thu05/24/25 at 1600 1756 (Given - Provider: Jne Blevins RN) 1143 (Given - Provider: Jen Blevins RN) 0902 (Given - Provider: Jazmyne Colbert, KELVIN) insulin lispro (HumaLOG/ADMELOG) 100 units/mL injection 1-5 [...] RN) 0901 (Given - Provider: Jazmyne Colbert, KELVIN) losartan (COZAAR) tablet 50 mg 50 mg, [...] 1142 (Given - Provider: Jen Blevins RN) 09 (Given - Provider: Jazmyne Colbert, KELVIN) metoPROLOL TARTRATE (LOPRESSOR) tablet 12.5 mg (CANCELED) [...] Pereira MD - Reason: Change in vital signs)2105 (Given - Provider: Juana Peters RN) montelukast (SINGULAIR) tablet 10 mg 10 mg, Oral, Nightly, First dose on Thu05/23/25 at 2142 1024 (MAR Hold - Provider: Automatic Transfer Provider - Reason: Unreviewed Transfer Orders)1133 (OCT Unhold - Provider: Gayle Lee, RN)2103 (Given - Provider: Juana Peters, KELVIN) 2057 (Given - Provider: Marisol Avila, KELVIN) naltrexone (REVIA) tablet 50 mg 50 mg, Oral, Daily, First dose on Thu05/24/25 at 0900 0725 (Given - Provider: Varinder Khan, KELVIN)1024 (OCT Hold - Provider: Automatic Transfer Provider - Reason: Unreviewed Transfer Orders)1133 (OCT Unhold - Provider: Gayle Lee RN) 1142 (Given - Provider: Jen Blevins RN) 0902 (Given - Provider: Jazmyne Colbert, KELVIN) PANTOprazole (PROTONIX) EC tablet 40 mg 40 mg, Oral, 2 times daily, First dose on Thu05/23/25 at 2142, *DO NOT CHEW OR CRUSH* 0725 (Given - Provider: Varinder Khan, KELVIN)1024 (OCT Hold - Provider: Automatic Transfer Provider - Reason: Unreviewed Transfer Orders)1133 (OCT Unhold - Provider: Gayle Lee RN)2103 (Given [...] 0903 (Not Given - Provider: Jazmyne Colbert, RN - Reason: Patient/family refused) ticagrelor (BRILINTA) tablet 90 mg 90 mg, Oral, 2 times daily, First dose on Thu05/24/25 at 2100, Do not administer with aspirin doses greater than 81 mg. 1450 (OCT Hold - Provider: Automatic Transfer Provider - Reason: Unreviewed Transfer Orders)1543 (OCT Unhold - Provider: Debra Gallardo MD)210 (Given - Provider: Juana Peters RN) 1143 (Given - Provider: Jen Blevins RN)2057 (Given - Provider: Marisol Avila, RN) 09 (Given - Provider: Jazmyne Colbert, KELVIN) Continuous Medication Order 05/24/2025 05/25/2025 05/26/2025 sodium chloride 0.9% (NS) infusion () 3 mL/kg/hr 78.3 kg (234.9 mL/hr), Intravenous, Continuous, Starting on Thu05/24/25 at 1200, For 4 hours, Do not modify orders without contacting interventional cardiology attending and/or fellow. 1151 (New Bag - Provider: Gayle Lee, KELVIN)1300 (Rate/Dose Verify - Provider: Isabella Pastor, KELVIN)1450 (OCT Hold - Provider: Automatic Transfer Provider - Reason: Unreviewed Transfer Orders)1543 (MAR Unhold - Provider: Debra Gallardo MD) heparin [...] = 50 units/mL, Indication for Anticoagulation: Acute PR 0459 (Rate Change - High Risk Medication - Provider: Meena Brown, RN)0708 (Handoff - Provider: Varinder Khan RN)1150 (Stopped - Provider: Gayle Lee RN) PRN [...] (OCT Unhold - Provider: Gayle Lee RN) fentaNYL 100 MCG/2ML injection (CANCELED) As needed, Starting on Thu05/24/25 at 1036, Intra-Procedure (Cath) 1036 (Given - Provider: Douglas Ta RN)1106 (Given - Provider: Douglas Ta RN) [...] 1 mL sterile water for injection. 1024 ([facility] Hold - Provider: Automatic Transfer Provider - Reason: Unreviewed Transfer Orders)1133 ([facility] Unhold - Provider: Gayle Lee RN) glucose [...] % = 15 grams of glucose. 1024 ([facility] Hold - Provider: Automatic Transfer Provider - Reason: Unreviewed Transfer Orders)1133 ([facility] Unhold - Provider: Gayle Lee RN) glucose [...] % = 15 grams of glucose. 1024 ([facility] Hold - Provider: Automatic Transfer Provider - Reason: Unreviewed Transfer Orders)1133 ([facility] Unhold - Provider: Gayle Lee RN) heparin [...] Orders)1133 (MAR Unhold - Provider: Gayle Lee RN)2012 (Given - Provider: Dayan Bee, HOGSHEAD WRECKER) 0637 (Given - Provider: Ozzy Gutierrez, LUIS) lidocaine (XYLOCAINE) 2 % injection (CANCELED) As needed, Starting on Thu05/24/25 at 1035, Intra-Procedure (Cath) 1035 (Given - Provider: Luis Alberto Pereira MD) midazolam (VERSED) 1 mg/mL injection (CANCELED) As needed, Starting on Thu05/24/25 at 1036, Intra-Procedure (Cath) 1036 (Given - Provider: Douglas Ta RN)1106 (Given - Provider: Douglas Ta RN) naloxone (NARCAN) 0.4 mg/mL injection 0.4 mg [...] per policy 1025 (Given - Provider: Smita Quintero, STEVEN) ticagrelor (BRILINTA) tablet (CANCELED) As needed, Starting [...] and 69 mg/dL, Starting on Thu05/24/25 at 015, For patient with IV access who is NPO or unable to swallow. See Hypoglycemia Management guideline. Or dextrose 50 % solution 25 gJump to med 25 g, Intravenous, Every 15 min PRN, low blood sugar, less than 50 mg/dL, Starting on Thu05/24/25 at 015, For patient with IV access who is NPO or unable to swallow. See Hypoglycemia Management guideline. Or glucagon (GLUCAGEN) injection 1 mgJump to med 1 mg, Intramuscular, Daily PRN, low blood sugar, for Blood Glucose LESS than 70 mg/dL and NPO and no IV access, Starting on Thu05/24/25 at 015, Glucagon may be repeated x 1 (for a total of 2 doses per hypoglycemic event) if patient remains hypoglycemic after first dose. Do not use with hepatic disease or alcohol intoxication. See Hypoglycemia Management guideline. Reconstitute vial with 1 mL sterile water for injection. documented in this encounter Care Teams Combination Presser Relationship Specialty Start Date End Date Gt Prescott MD [address] [place] [id number] PCP - General Internal Medicine 05/24/25 documented as of this encounter
[2025-05-29] VITALS (12 sets, daily range): BP systolic 133–178; BP diastolic 57–84; PULSE 60–68; RESP 12–20; TEMP 36.2–36.8; O2SAT 97–100; BMI 29.8
--- NOTE | ~2025-05-29 | CT_ITS ---
CLINICAL HISTORY: AMS CT of the head without intravenous contrast Comparison: CT/SR - CT HEAD/BRAIN WO IV CON - 01/15/25 16:10 EDT Findings: The ventricles and sulci are prominent, consistent with generalized cerebral parenchymal volume loss. The ventricles are symmetric and the basilar cisterns are intact. Mild periventricular, deep and subcortical white matter hypodensities are nonspecific but statistically reflect the sequela of chronic small vessel ischemic change.Stable mildly enlarged partially empty sella. No intracranial hemorrhage, extra-axial fluid collection, midline shift or mass-effect is evident. No evidence of acute large vessel or territorial ischemia. Brainstem and cerebellum unremarkable. Vascular calcifications indicate intracranial atherosclerosis. The imaged portion of the paranasal sinuses are clear. No mastoid effusions are demonstrated. The orbital contents are unremarkable. Calvarium is intact. Impression: 1. No CT evidence of acute intracranial abnormality. 2. Cerebral volume loss, intracranial atherosclerotic disease and mild sequela of chronic small vessel ischemic disease. This document has been electronically signed by: Cb Montana MD on 05/29/2025 05:33:03
--- NOTE | ~2025-05-29 | CT_ITS ---
CLINICAL HISTORY: aphasia CT angiography head with IV contrast. 3-D postprocessing Comparison: CT/SR - CT HEAD/BRAIN WO IV CON - 05/29/25 04:[address]/SR - CT HEAD/BRAIN WO IV CON - 01/15/25 16:10 EDT Findings: Angiographic images of the head: The terminal portion of both internal carotid arteries are patent. The anterior and middle cerebral arteries are patent along their proximal aspects. Equivocal paucity of a tributary off the M2 segment on the left frontal lobe correlate with MRI with diffusion-weighted sequences. Posteriorly within the head, the intradural vertebral arteries, basilar artery and cheesemaking laborer are patent. No aneurysm or arteriovenous shunting lesion is appreciated. Impression: 1. No proximal occlusive disease although there is equivocal paucity of a tributary off the M2 segment left frontal lobe. MRI of the brain with diffusion-weighted sequences is recommended. 2. No intracranial aneurysm or AVM. 3. Unremarkable CT enhancement of the brain parenchyma. CT angiography neck with contrast. 3-D postprocessing Comparison: CT/SR - CT HEAD/BRAIN WO IV CON - 05/29/25 04:[address]/SR - CT HEAD/BRAIN WO IV CON - 01/15/25 16:10 EDT Findings: Angiographic images of the neck: The bilateral common carotid arteries are patent. Both carotid bulbs are widely patent. Both ICAs follow normal course and caliber through their distal cervical segments. Posteriorly within the neck, the vertebral arteries are codominant with patent origins. Both vessels follow normal course and caliber through their suboccipital segments. Clear paranasal sinuses. No mastoid effusions. Adenoids are not enlarged. Normal Fossa of Rosenmuller. Epiglottis and palatine tonsils are not enlarged. No subglottic masses. Normal thyroid gland. Osseous structures intact. Lung apices unremarkable. Impression: 1. There is no stenosis of the right common carotid artery bifurcation and proximal right internal carotid artery based on NASCET criteria. 2. There is no stenosis of the left common carotid artery bifurcation and proximal left internal carotid artery based on NASCET criteria. 3. Wide patency of the cervical vertebral arteries. This document has been electronically signed by: Cb Montana MD on 05/29/2025 07:42:38
--- NOTE | ~2025-05-29 | MR_ITS ---
CLINICAL HISTORY: Expressive aphasia, ?CVA MR Brain without gadolinium Comparison: CT/SR - CT ANGIO HEAD NECK - 05/29/25 06:[address]/SR - CT HEAD/BRAIN WO IV CON - 05/29/25 04:33 EDT Findings: There is left frontal lobe restricted diffusion with associated T2/FLAIR hyperintensity suggesting acute infarct. There is also punctate restricted diffusions in the right frontal lobe ( series 6, image 20 and 21). Scattered T2/FLAIR hyperintensities in the deep white matter, nonspecific, however may represent sequela of chronic microvascular ischemic disease. No intra-axial mass or hemorrhage. No midline shift. No hydrocephalus. Vascular flow voids are intact. The orbits are normal. The sinuses and mastoid air cells are clear. No focal bone lesion. IMPRESSION: Acute infarct in the left frontal lobe as well as punctate infarcts in the right frontal lobe. This document has been electronically signed by: Hoa Levine MD on 05/29/2025 19:57:43
--- NOTE | 2025-05-29 04:18 | ECG_ITS ---
Test Reason : AMS Blood Pressure : */* mmHG Vent. Rate : 65 BPM Atrial Rate : 65 BPM P-R Int : 174 ms QRS Dur : 82 ms QT Int : 416 ms P-R-T Axes : 16 21 40 degrees QTcB Int : 432 ms Normal sinus rhythm Normal ECG When compared with ECG of 23-May-2025 12:25, Criteria for Septal infarct are no longer Present Referred By: Barbi Green Electronically Signed By: ALTHEA QUIROZ MD
[2025-05-29 04:36] LABS: Hematocrit 34.5 % (37.0-47.0); Hemoglobin 10.8 g/dl (12.0-16.0); Imm Gran Abs Auto 0.06 X10*3/uL (0.00-0.03); Imm Gran Pct Auto 0.8 % (0.0-0.4); Lymphocytes Absolute Auto 1.6 X10*3/uL (1.2-4.9); MANUAL DIFF FLAG NO; Mean Corpuscular HGB Conc 31.3 g/dl (31.0-35.0); Mean Corpuscular Hemoglobin 24.0 pg (27.0-33.0); Mean Corpuscular Volume 76.7 fL (80.0-98.0); NRBC Abs Auto 0.000 X10*3/uL (0.0-0.012); NRBC Pct Auto 0.0 /100WBC (0.0-0.2); Platelet Count 354 X10*3/uL (160-400); Red Blood Count 4.50 X10*6/uL (4.20-5.50); White Blood Count 7.9 X10*3/uL (4.8-10.8)
[2025-05-29 04:41] LABS: INTERNATIONAL NORM RATIO 1.0 (0.9-1.1); Prothrombin Time 11.3 SEC (10.9-12.4)
[2025-05-29 04:58] LABS: Alanine Aminotransferase 15 U/L (0-31); Albumin Level 3.7 g/dL (3.5-5.0); Alkaline Phosphatase 77 U/L (39-117); Anion Gap 11 (12-20); Aspartate Amino Transferase 33 U/L (5-31); Blood Urea Nitrogen 22 mg/dL (9-16); Calcium 8.9 mg/dL (8.4-10.2); Carbon Dioxide 23 mmol/L (22-29); Chloride 109 mmol/L (96-108); Creatinine Clr Calc Pharmacy 63.9; Estimated Glomerular Filt Rate > 60; Magnesium 1.9 mg/dL (1.6-2.6); Potassium 4.3 mmol/L (3.3-5.1); Sodium 139 mmol/L (135-145); Total Protein 6.8 g/dL (6.5-8.0)
[2025-05-29 04:59] LABS: Troponin-I High Sensitivity 14.0 ng/L (<3.5-17.0)
--- OUTSIDE RECORDS SUMMARY | 2025-05-29 05:17 | XMS_ITS | Encounter Summary ---
Author Organization [employer] Address [address] [place] [address] Care Team Providers Care Access Rep Name Role Phone Unavailable Primary Care Provider Unavailabl e Reason for Visit * Reason Comments Med Refill Encounter Details Date Type Department Care Team (Late st Contact Info) Description 12/20/2024 Refill [facility] [address], [place] [phone] Alexus Haney DDS [address], [place] [phone] Social History Tobacco Use Types Packs/Day Years [...]
--- OUTSIDE RECORDS SUMMARY | 2025-05-29 05:17 | XMS_ITS | Clinical Summary ---
Author Organization Formerly [facility] Address [address] [place] [address] Care Team Providers Care Configuration Management Specialist Name Role Phone Gt Prescott MD Primary Care Provider [phone] Allergies Active Allergy Reactions Criticality Noted Date Comments Latex Rash/Dermatitis Medium 05/23/2025 Medications buPROPion (WELLBUTRIN XL) 300 MG 24 hr tablet Take 1 tablet (300 mg total) by mouth every morning. 5 Active ipratropium (ATROVENT) 0.02 % nebulizer solution Take 2.5 mL (0.5 mg total) by nebulization 4 (four) times a day as needed for wheezing or shortness of breath. 5 Active montelukast (SINGULAIR) 10 MG tablet Take 1 tablet (10 mg total) by mouth nightly. Active OMEprazole (PriLOSEC) 40 MG capsule Take 1 capsule (40 mg total) by mouth every morning before breakfast. Active naltrexone (REVIA) 50 MG tablet Take 1 tablet (50 mg total) by mouth daily. Active calcium citrate (CALCITRATE) 950 (200 Ca) MG tablet Take 1 tablet (950 mg total) by mouth daily. Active cholecalcifero l (D 1000) 1000 units capsule Take 1 capsule (1,000 Units total) by mouth daily. 5 Active Advair HFA 230-21 MCG/ACT inhaler Inhale 1 puff 2 times a day. Active folic acid (FOLVITE) 1 MG tablet Take 1 tablet (1,000 mcg total) by mouth daily. Active hydrOXYzine HCl (ATARAX) 25 MG tablet Take 1 tablet (25 mg total) by mouth 3 times daily (every 8 hours) as needed for itching. 5 Active Combivent Respimat 20-100 MCG/ACT inhaler Inhale 1 puff 4 (four) times a day. Active predniSONE (DELTASONE) 20 MG tablet Take 1 tablet (20 mg total) by mouth 2 (two) times a day. For 5 days (end 05/22/25) 5 Active Denta 5000 Plus 1.1 % Cream APPLY A PEA SIZE AMOUNT ON TOOTHBRUSH, BRUSH TEETH THREE TIMES A DAY 5 Active aspirin enteric coated (ECOTRIN LOW STRENGTH) 81 MG EC tabletIndicati ons:NSTEMI (non-ST elevated myocardial infarction) (HCC) Take 1 tablet (81 mg total) by mouth daily. 30 tablet 5 Active atorvastatin (LIPITOR) 80 MG tabletIndicati ons:NSTEMI (non-ST elevated myocardial infarction) (HCC) Take 1 tablet (80 mg total) by mouth daily. 90 tablet 3 5 026 Active metoPROLOL SUCCINATE (TOPROL-XL) 25 MG 24 hr tabletIndicati ons:NSTEMI (non-ST elevated myocardial infarction) (HCC) Take 1 tablet (25 mg total) by mouth daily. 30 tablet 5 025 Active ticagrelor (BRILINTA) 90 MG tabletIndicati ons:NSTEMI (non-ST elevated myocardial infarction) (HCC) Take 1 tablet (90 mg total) by mouth 2 (two) times a day. 60 tablet 5 Active losartan (COZAAR) 50 MG tabletIndicati ons:NSTEMI (non-ST elevated myocardial infarction) (HCC) Take 1 tablet (50 mg total) by mouth daily. Do not start before May 27, 2025. 90 tablet 3 5 026 Active naloxone (NARCAN) 4 mg/0.1 mL Liquid nasal spray deviceIndicati ons:At risk for abuse of opiates [place] contents (4mg) into one nostril once. May repeat every 2 to 3 minutes in alternating nostrils. Call 911 immediately after use. 0.2 mL 5 Active tiotropium (Spiriva Respimat) 1.25 MCG/ACT inhalation Inhale 1 puff daily. Discontin ued(Med List Clean-up/ Old Med - No E-Cancel/ No AVS) doxycycline (VIBRA-TABS) 100 MG tablet Take 1 tablet (100 mg total) by mouth 2 (two) times a day. 5 025 Discontin ued(Stop Taking at Discharge ) ibuprofen (MOTRIN) 800 mg tablet Take 1 tablet (800 mg total) by mouth 3 times daily (every 8 hours) as needed for mild pain. 025 Discontin ued(Stop Taking at Discharge ) Active Problems Problem Noted Date Diagnosed Date Type 2 diabetes mellitus wit hout complication, without long-term current use of insulin 05/25/2025 Assessment & Plan (05/25/2025 2:08 PM EDT): -A1c 7.7 -Diabetic diet, weight loss and exercise program - Resume GLP-1 agonist at the discharge Primary hypertension 05/25/2025 Assessment & Plan (05/25/2025 2:08 PM EDT): -2 g sodium diet - Resume losartan 25 mg daily and continue Toprol-XL Anemia in other chronic diseases classified else where 05/25/2025 Assessment & Plan (05/25/2025 2:08 PM EDT): -Microcytic and hypochromic - Will need iron supplementation - Anemia is multifactorial NSTEMI (non-ST elevated myocardial infarction) 0 05/23/2025 Assessment & Plan (05/25/2025 2:08 PM EDT): At OSH patient noted to have rise [...] WMA's - Continue aggressive risk factor modification Assessment & Plan (05/24/2025 4:36 PM EDT): At OSH patient noted to have rise in trops from 31 --> 797, repeat in our ED 136 -->93. In addition TTE showed newly reduced EF of 35% and imaging with findings consistent with [place]. Patient denies any recent significant stressors in her life, however was recently treated for suspected asthma exacerbation. Plan: - Cath this AM - soap slabber diet protocol (clears past midnight) - Continue heparin gtt - Start metoprolol 12.5 tartrate BD (hold for hypotension/bradycardia) - Obtain lipid panel - Start high intensity statin - Start ASA 81 - Sublingual nitroglycerin for chest pain - Obtain proBNP Encounters Date Type Department Care Team Description 05/24/2025 10:17 AM EDT - 05/24/2025 11:27 AM EDT Surgery [facility] Heart [facility] V[facility] at [facility] - Cardiac Catheterization Laboratory [address] [place] [phone] Violet Arthur MD CORONARY ANGIO W/LV 05/23/2025 9:25 PM EDT Ancillary Procedure [facility] Emergency Department [address] [place] [phone] Zuhair Laura MD 05/23/2025 6:20 PM EDT Ancillary Procedure [facility] [address] [place] [phone] Provider, File Room 05/23/2025 5:23 PM EDT - 05/26/2025 3:44 PM EDT Hospital Encounter [place] [address] [address] [place] [phone] Zuhair aLura MD Joseph, Kesley, MD Gionfriddo, Robert J, MD Rossi, Victor, MD NSTEMI (non-ST elevated myocardial infarction) (HCC) (Primary Dx); Chest pain, unspecified; Nausea & vomiting; Diarrhea; At risk for abuse of opiates Discharge Disposition: Home or Self Care 05/23/2025 Orders Only [facility] [address] [place] [address] Provider, File Room 05/23/2025 Travel from Last 3 Months Social History Tobacco Use Types Packs/Day Years Used Date Smoking Tobacco: Never Assessed [facility] Utilities Answer Date Recorded In the past 12 months has th e electric, gas, oil, or water company threatened [...] any time in the past 12 [facility], were you homeless or living in a fpc (including now)? No 05/24/2025 Comments Unknown Sex and Gender Information Value Date Recorded Sex Assigned at Female 05/23/2025 5:47 PM EDT Legal Sex Female 7:08 PM EST Gender Identity Female 05/23/2025 5:47 PM EDT Sexual Orientation Heterosexual (straight) 05/23 5:47 PM EDT Last Filed Vital Signs Vital Sign [...] Mass Index 31.82 05/24/2025 2:57 PM EDT Plan of Treatment Health Maintenance Due Date Last Done Comments Hepatitis C Virus Screening 1968 Foot Exam 1978 Ophthalmology Exam 1978 HIV Screening 1981 Microalbumin/Creatinine Rati o Urine 1986 DTaP/Tdap/Td Vaccines (1 - Tdap) 1987 Hepatitis B Vaccines (1 of 3 - 19+ 3-dose series) 1987 Pneumococcal Vaccines 50+ (1 of 2 - PCV) 1987 Pap Smear (Ages 21-65) 1989 Mammogram 2008 Colonoscopy 2013 Zoster (Shingles) Vaccine (1 of 2) 2018 Influenza Vaccine 03/24/2025 07/10/2022, , 04/24/2020, Additional history exists COVID-19 Vaccine (2024-2 6 season) 2025 07/09/2022, 10/28/2021, 11/13/2020, Additional history exists Hemoglobin A1C 11/20/2025 05/23/2025, 11/11/2024 Lipid Panel 05/24/2026 05/24/2025 Creatinine with GFR 05/25/2026 05/25/2025, 05/24/2025, 05/23/2025 Medical Devices Implanted Type Area Certified Wellness Program Coordinator Device Identifier Shelf Expiration Date Model / Serial / Lot [id number] Coronary Stent System Synergy Xd Mr 2.75mm 28mm Delivery [facility] - [id number] Implanted:Qty : 1 on 05/24/2025 by Violet Arthur MD at [facility] Stent N/A: Coronary [employer] KERI [id number] 09/20/2026 [id number] / / [id number] Description:RCA Procedures Procedure Name Priority Date/Time Associated Diagnosis [...] FINGERSTICK (CHARGE) Routine 05/25/2025 8:35 AM EDT COMPREHENSIVE METABOLIC PANEL Routine 05/25/2025 7:55 AM EDT COMPLETE BLOOD COUNT, WITH DIFFERENTIAL Routine 05/25/2025 7:55 AM EDT POCT GLUCOSE, [...] AND SCREEN Routine 05/24/2025 10:45 AM EDT LIPID PANEL Routine 05/24/2025 7:47 AM EDT HEPARIN ASSAY (ANTI-XA) STAT 05/24/2025 7:47 AM EDT T4, FREE STAT 05/24/2025 7:47 AM EDT VITAMIN B12 STAT 05/24/2025 7:47 AM EDT IRON AND TOTAL IRON BINDING CAPACITY STAT 05/24/2025 7:47 AM EDT FERRITIN STAT 05/24/2025 7:47 AM EDT BASIC METABOLIC PANEL STAT 05/24/2025 7:47 AM EDT FOLATE LEVEL STAT 05/24/2025 7:47 AM EDT COMPLETE BLOOD COUNT, WITHOUT DIFFERENTIAL STAT 05/24/2025 7:47 AM EDT POCT GLUCOSE, FINGERSTICK (CHARGE) Routine 05/24/2025 7:21 AM EDT HEPARIN ASSAY (ANTI-XA) STAT 05/24/2025 2:40 AM EDT PROBNP, N-TERMINAL CARD 05/24/2025 12 :17 AM EDT T4, FREE CARD 05/24/2025 12:17 AM EDT HIGH SENSITIVITY TROPONIN T CARD 05/24/2025 12:17 AM EDT ED PERFORMED US CARDIAC LIMITED STAT 05/23/2025 8:44 PM EDT Chest pain, unspecified HEMOGLOBIN A1C WITH ESTIMATED AVERAGE GLUCOSE STAT 05/23/2025 6:19 PM EDT TSH, HIGHLY SENSITIVE STAT 05/23/2025 6:19 PM EDT HEPARIN ASSAY (ANTI-XA) Routine 05/23/2025 6:19 PM EDT HIGH SENSITIVITY TROPONIN T Routine 05/23/2025 6:19 PM EDT PARTIAL THROMBOPLASTIN TIME (PTT) STAT 05/23/2025 6:19 PM EDT PROTIME-INR STAT 05/23/2025 6:19 PM EDT MAGNESIUM STAT 05/23/2025 6:19 PM EDT COMPREHENSIVE METABOLIC PANEL STAT 05/23/2025 6:19 PM EDT COMPLETE BLOOD COUNT, WITH DIFFERENTIAL STAT 05/23/2025 6:19 PM EDT US HEART ARCHIVE FOR REFERENCE ONLY Routine 05/23/2025 6:18 PM EDT ECG 12-LEAD ED Critical 05/23/2025 5:25 PM EDT from Last 3 Months Results * POCT Glucose, Fingerstick (05/26/2025 12:01 PM EDT) Only the most recent of12 resultswithin the time period is included. POC Glucose 89 65 - 99 mg/dL [...] basal inferoseptal, basal inferior and mid inferoseptal. us Rajinder Davis MD CV ECHO ORDERABLES Final Result * (ABNORMAL) Complete Blood Count, with Differential (05/25/2025 7:55 AM EDT) Only the most recent of2 resultswithin the time period is included. White Blood Cell Count 8.7 4.0 - 11.0 Thou/uL 05/25/2025 9:[address] [facility] Platelet Count 386 150 - 450 Thou/uL 05/25/2025 9:48 AM [facility] Hemoglobin 9.9(L) 11.7 - 15.7 g/dL 05/25/2025 9:48 AM [facility] Hematocrit 33.8(L) 35.0 - 47.0 % 05/25/2025 9:48 AM [facility] Red Blood Cell Count 4.21 4.00 - 5.40 Mil/uL 05/25/2025 9:48 AM [facility] MCV 80 80 - 100 fL 05/25/2025 9:48 AM [facility] MCH 23.5(L) 27.0 - 31.0 pg 05/25/2025 9:48 AM [facility] MCHC 29.3(L) 30.0 - 36.0 g/dL 05/25/2025 9:48 AM [facility] RDW 17.8(H) 11.5 - 14.5 % 05/25/2025 9:48 AM [facility] MPV 10.2 7.5 - 12.5 fL 05/25/2025 9:48 AM [facility] Neutrophils Auto 68.6 % 05/[facility] Immature Granulocytes 1.6 % 05/25/2025 9:48 AM [facility] Lymphocytes Auto 20.6 % 05/25/20 9:48 AM [facility] Monocytes Auto 6.1 % 05/25/2025 9:48 AM [facility] Eosinophils Auto 2.5 % 05/25/20 9:48 AM [facility] Basophils Auto 0.6 % 05/25/2025 9:48 AM [facility] Abs Neutrophils Auto 5.99 2.00 - 7.50 Thou/uL 05/25/2025 9:48 AM [facility] Abs Immature Granulocytes 0.14(H) 0.00 - 0.10 Thou/uL 05/25/2025 [facility] Abs Lymphocytes Auto 1.80 1.50 - 4.50 Thou/uL 05/25/2025 9:48 AM [facility] Abs Monocytes Auto 0.53 0.20 - 1.50 Thou/uL 05/25/2025 9:48 AM [facility] Abs Eosinophils Auto 0.22 0.00 - 0.70 Thou/uL 05/25/2025 9:[facility] Abs Basophils Auto 0.05 0.00 - 0.20 Thou/uL 05/25/2025 9:48 AM [facility] Blood Blood specimen / Unknown 05/25/2025 7:55 AM EDT 05/25/2025 9:14 AM EDT Rajinder Davis MD LAB BLOOD ORDERAB[place] [address], [address] [address] * (ABNORMAL) Comprehensive Metabolic Panel (05/25/2025 7:55 AM EDT) Only the most recent of2 resultswithin the time period is included. Glucose 115(H) 65 - 99 mg/dL 05/25/2025 10:11 AM [facility] Comment:Fasting: <100 mg/dL, Non-Fasting: <200 mg/dL (ADA 2004) Blood Urea Nitrogen (BUN) 14 8 - 21 mg/dL 05/25/2025 10:11 AM [facility] Creatinine 0.82 0.40 - 1.10 mg/dL 05/25/2025 10:11 AM [facility] eGFR 83 >59 05/25/2025 10:11 AM [facility] Comment:CKD-EPI (2020) in mL /min/1.73 sq meters. Sodium 137 136 - 145 mmol/L 05/25/2025 10:11 AM [facility] Potassium 4.1 3.4 - 5.3 mmol/L 05/25/2025 10:11 AM [facility] Comment:Specimen hemolyzed. Results may be artifactually elevated. Chloride 101 98 - 107 mmol/L 05/25/2025 10:11 AM [facility] CO2 24 22 - 33 mmol/L 05/25/2025 10:11 AM [facility] Calcium 8.9 8.7 - 10.5 mg/dL 05/25/2025 10:11 AM [facility] Alkaline Phosphatase 80 32 - 122 U/L 05/25/2025 10:11 AM [facility] Aspartate Aminotrans (AST) 36 10 - 50 U/L 05/25/2025 10:11 AM [facility] Comment:Specimen hemolyzed. Results may be artifactually elevated. Alanine Aminotrans (ALT) 15 10 - 50 U/L 05/25/2025 10:11 AM [facility] Bilirubin, Total 0.4 0.2 - 1.0 mg/dL 05/25/2025 10:11 AM [facility] Protein, Total 6.4 6.3 - 8.3 g/dL 05/25/2025 10:11 AM [facility] Albumin 3.4(L) 3.5 - 5.0 g/dL 05/25/2025 10:11 AM EDT [facility] BUN/Creatinine Ratio 17 10.0 - 25.0 Ratio 05/25/2025 10:11 AM EDT [facility] Globulin 3.0 1.5 - 3.9 g/dL 05/25/2025 10:11 AM EDT [facility] Albumin/Globulin Ratio 1.1 1.0 - 3.0 Ratio 05/25/2025 10:11 AM EDT [facility] Anion Gap 12 7 - 17 05/25/2025 10:11 AM EDT [facility] Blood Blood specimen / Unknown 05/25/2025 7:55 AM EDT 05/25/2025 9:14 AM EDT us Rajinder Davis MD LAB BLOOD ORDERABLES June l Result Performing Organization Address City/[facility]/[place] [address], [place] [address] * (ABNORMAL) ISTAT Activated Clotting Time, Celite (05/24/2025 11:23 AM EDT) Only the most recent of2 resultswithin the time period is included. Activated Clotting Time (Celite), I-STAT 315(H) 84 - 139 seconds 05/25/2025 6:40 AM EDT Blood specimen / Unknown 05/24/2025 11:23 AM EDT 05/25/2025 6:40 AM EDT us Nicholas Hill MD POCT ORDERABLES - DEVICE Final R esult HOSPITAL LAB See Below * CC CORONARY ANGIO W/LV, CC ZORAIDA PLACEMENT, 1ST ARTERY, CC IVUS 1ST VESSEL (05/24/2025 11:16 AM EDT) Anatomical Region Laterality Modality Radiographic Fanta ging Narrative 05/24/2025 5:56 PM EDT Table formatting from the original result was not included. Images from the original result were not included. [facility] Heart & Vascular [facility] at [facility] - Cardiac Catheterization Laboratory PATIENT DEMOGRAPHIC INFORMATION Name: Codie Fernández : 1970 55 y.o. Sex: female Gender: female Procedure Date: 05/24/2025 Referring Physician: Guerrero Estrada PCP: Provider Not In System PROCEDURE: Procedures: * CORONARY ANGIO W/LV * ZORAIDA PLACEMENT, 1ST ARTERY * IVUS 1ST VESSEL Reference Test Clerk: Violet Arthur MD Fellow: Luis Alberto Pereira MD Endless Track Vehicle Mechanic(s): none Indications for Procedure: NSTEMI PCI Indication: [...] Thereafter a IVUS was performed using an [employer] eye IVUS catheter that showed a fibrofatty [...] Implant Name Type Inv. Item Serial No. Certified Wellness Program Coordinator Lot No. LRB No. Used Action [id number] CORONARY STENT SYSTEM SYNERGY XD MR 2.75MM 28MM DELIVERY SYS - [id number] Stent [id number] CORONARY STENT SYSTEM SYNERGY XD MR 2.75MM 28MM DELIVERY SYS [employer] KERI [id number] N/A 1 Implanted Complications: None Anesthesia: The [...] this patient that I request from a [facility] PA/AGITATOR OPERATOR/fellow/staff member. Fellow : Luis Alberto Pereira MD Attending: Violet Arthur MD [facility] Heart [facility] V[facility] 05/24/2025 11:35 AM Cardiac Protocol CAD Percutaneous [...] Status: Urgent PCI Indication: non-STEMI. Indications for Pressed Or Blown Glass Worker Visit: ACS > 24 hours us Violet Arthur MD CV CARDIAC CATH ORDERABLES Final Result * ABO Confirmation (05/24/2025 11:00 AM EDT) ABO/Rh O POSITIVE 05/24/2025 12:11 PM EDT [facility] Blood specimen / Unknown 05/24/2025 11:00 AM EDT 05/24/2025 11:24 AM EDT us Zuhair Laura MD BLOOD BANK TEST ORDERABLES Final Result Performing Organization Address City/[facility] Co de Phone Number [address] [address], [address] [address] * Type and Screen (05/24/2025 10:45 AM EDT) ABO/Rh O POSITIVE 05/24/2025 12:23 PM EDT [facility] Antibody Screen NEGATIVE 12:23 PM EDT [facility] Specimen Expiration 05/27/2025 05/24/2025 12:23 PM EDT [facility] Blood Blood specimen / Unknown 05/24/2025 10:45 AM EDT 05/24/2025 11:24 AM EDT us Violet Arthur MD BLOOD BANK TEST ORDERABLES Final Result Performing Organization Address City/[facility] Co de Phone Number [address] [address], [address] [address] * Iron and Total Iron Binding Capacity (05/24/2025 7:47 AM EDT) Iron 105 59 - 151 ug/dL 05/24/2025 9:16 AM EDT [facility] UIBC 182 112 - 346 ug/dL 05/24/2025 9:16 AM EDT [facility] Total Iron Binding Capacity 287 100 - 400 ug/dL 05/24/2025 9:16 AM EDT [facility] Iron Sat 37 20 - 50 % 05/24/2025 9:16 AM EDT [facility] Blood Blood specimen / Unknown 05/24/2025 7:47 AM EDT 05/24/2025 8:29 AM EDT us Guerrero Estrada MD LAB BLOOD ORDERABLES Final Resu lt Performing Organization Address City/[facility]/ZIP Co de Phone Number [address] [address], [address] [address] * Heparin Assay (Anti Xa) (05/24/2025 7:47 AM EDT) Only the most recent of3 resultswithin the time period is included. Anti Xa 0.46 IU/mL 05/24/2025 9:25 AM EDT [facility] Comment: (NOTE) Heparin Thromboembolic/Standard/Full Dose Protocol: [...] LOW MOLECULAR WEIGHT 05/24/2025 5:09 AM EDT [facility] Blood Blood specimen / Unknown 05/24/2025 7:47 AM EDT 05/24/2025 8:30 AM EDT us Bill Pratt MD LAB BLOOD ORDERABLES Final Resu lt Performing Organization Address City/[facility]/ZIP Co de Phone Number [address] [address], [address] [address] * (ABNORMAL) Complete Blood Count WITHOUT Differential - Early AM (05/24/2025 7:47 AM EDT) White Blood Cell Count 7.1 4.0 - 11.0 Thou/uL 05/24/2025 8:44 AM EDT [facility] Platelet Count 327 150 - 450 Thou/uL 05/24/2025 8:44 AM EDT [facility] Hemoglobin 9.6(L) 11.7 - 15.7 g/dL 05/24/2025 8:44 AM EDT [facility] Hematocrit 32.1(L) 35.0 - 47.0 % 05/24/2025 8:[address] [facility] Red Blood Cell Count 3.99(L) 4.00 - 5.40 Mil/uL 05/24/2025 8:44 AM [facility] MCV 81 80 - 100 fL 05/24/2025 8:44 AM [facility] MCH 24.1(L) 27.0 - 31.0 pg 05/24/2025 8:44 AM EDT [facility] MCHC 29.9(L) 30.0 - 36.0 g/dL 05/24/2025 8:44 AM [facility] RDW 17.5(H) 11.5 - 14.5 % 05/24/2025 8:44 AM EDT [facility] MPV 9.7 7.5 - 12.5 fL 05/24/2025 8:44 [facility] Blood Blood specimen / Unknown 05/24/2025 7:47 AM EDT 05/24/2025 8:29 AM EDT us Guerrero Estrada MD LAB BLOOD ORDERABLES Final Resu lt Performing Organization Address [facility]/[place] [address], [place] [address] * T4, Free (05/24/2025 7:47 AM EDT) Only the most recent of2 resultswithin the time period is included. T4, Free 1.17 0.80 - 1.90 ng/dL 05/24/2025 9:16 AM EDT [facility] Blood Blood specimen / Unknown 05/24/2025 7:47 AM EDT 05/24/2025 8:29 AM EDT us Guerrero Estrada MD LAB BLOOD ORDERABLES Final Resu lt Performing Organization Address City/[facility]/[place] [address], [address] [address] * Folate Level (05/24/2025 7:47 AM EDT) Folate, Serum 17.9 >7.2 ng/mL 05/24/2025 9:28 AM EDT [facility] Blood Blood specimen / Unknown 05/24/2025 7:47 AM EDT 05/24/2025 8:29 AM EDT us Guerrero Estrada MD LAB BLOOD ORDERABLES Final Resu lt Performing Organization Address City/[facility]/ZIP Co de Phone Number [address] [address], [address] [address] * (ABNORMAL) Ferritin (05/24/2025 7:47 AM EDT) Ferritin 20(L) 30 - 400 ug/L 05/24/2025 9:16 AM EDT [facility] Blood Blood specimen / Unknown 05/24/2025 7:47 AM EDT 05/24/2025 8:29 AM EDT us Guerrero Estrada MD LAB BLOOD ORDERABLES Final Resu lt Performing Organization Address City/[facility]/ZIP Co de Phone Number [address] [address], [address] [address] * Vitamin B12 (05/24/2025 7:47 AM EDT) Vitamin B12 346 243 - 894 pg/mL 05/24/2025 9:16 AM EDT [facility] Blood Blood specimen / Unknown 05/24/2025 7:47 AM EDT 05/24/2025 8:29 AM EDT us Guerrero Estrada MD LAB BLOOD ORDERABLES Final Resu lt Performing Organization Address City/[facility]/ZIP Co de Phone Number [address] [address], [address] [address] * LIPID PANEL (05/24/2025 7:47 AM EDT) Cholesterol, Total 183 <200 mg/dL 2024 9:16 AM [facility] Triglycerides 62 <150 mg/dL 05/24/2025 9:16 AM [facility] Cholesterol, HDL 79 >39 mg/dL 05/24/20 9:16 AM [facility] Estimated LDL 92 <130 mg/dL 05/24/2025 9:16 AM [facility] Comment: Estimated LDL was calculated using the Friedewald equation NCEP Guidelines: < 100 mg/dL Optimal 100 - 129 mg/dL Near Optimal/Above Optimal 130 - 159 mg/dL Borderline High 160 - 189 mg/dL High >/= 190 mg/dL Very High Cholesterol/HDL Ratio 2.3 0.0 - 5.0 Ratio 05/24/2025 9:16 AM [facility] Comment: Relative Risk Ratio - Male Ratio - Female 0.5 3.4 3.3 1.0 5.0 4.4 2.0 9.6 7.1 3.0 23.4 11.0 05/24/2025 7:47 AM EDT 05/24/2025 8:29 AM EDT us Guerrero Estrada MD LAB BLOOD ORDERABLES Final Resu lt [address] [address], [address] [address] * Basic Metabolic Panel (05/24/2025 7:47 AM EDT) Glucose 80 65 - 99 mg/dL 05/24/2025 9:16 AM [facility] Comment:Fasting: <100 mg/dL, Non-Fasting: <200 mg/dL (ADA 2005) Blood Urea Nitrogen (BUN) 13 8 - 21 mg/dL 05/24/2025 9:16 AM [facility] Creatinine 0.99 0.40 - 1.10 mg/dL 05/24/2025 9:16 AM [facility] eGFR 67 >59 05/24/2025 9:16 AM [facility] Comment:CKD-EPI (2020) in mL /min/1.73 sq meters. Sodium 138 136 - 145 mmol/L 05/24/2025 9:16 AM [facility] Potassium 4.2 3.4 - 5.3 mmol/L 05/24/2025 9:16 AM [facility] Chloride 103 98 - 107 mmol/L 05/24/2025 9:16 AM [facility] CO2 26 22 - 33 mmol/L 05/24/2025 9:16 AM [facility] Anion Gap 9 7 - 17 05/24/2025 9:16 AM [facility] Calcium 8.7 8.7 - 10.5 mg/dL 05/24/2025 9:16 AM [facility] BUN/Creatinine Ratio 13 10.0 - 25.0 Ratio 05/24/2025 9:16 AM [facility] Blood Blood specimen / Unknown 05/24/2025 7:47 AM EDT 05/24/2025 8:29 AM EDT us Guerrero Estrada MD LAB [place]LOOD [place] [address], [place] [address] * (ABNORMAL) High Sensitivity Troponin T (Once) (05/24/2025 12:17 AM EDT) Only the most recent of2 resultswithin the time period is included. High Sensitivity Troponin T 93(HH) <15 ng/L 05/24/2025 12:50 AM [facility] Comment:Recurring Critical R esult. Previously phoned. Delta (Change) 43(H) <3 05/24/2025 12:50 AM [facility] Comment:Decreased Blood Blood specimen / Unknown 05/24/2025 12:17 AM EDT 05/24/2025 12:23 AM EDT us Guerrero Estrada MD LAB BLOOD ORDERABLES Final Resu lt Performing Organization Address City/[facility]/ZIP Co de Phone Number [address] [address], [address] [address] * (ABNORMAL) proBNP, N-terminal (05/24/2025 12:17 AM EDT) proBNP, N-terminal 2,273(H) <125 pg/mL 05/24/2025 4:37 AM EDT [facility] 05/24/2025 12:1 7 AM EDT 05/24/2025 12:23 AM EDT us Guerrero Estrada MD LAB BLOOD ORDERABLES Final Resu lt Performing Organization Address [facility] [facility] Co de Phone Number [address] [address], [address] [address] * Ed Performed [employer] (05/23/2025 [...] 7.7(H) <5.7 % 05/24/2025 1:26 AM EDT [facility] Comment: A1c% Interpretation 5.7 - 6.0 Increase risk of diabetes 6.1 - 6.4 Higher risk of diabetes > or = 6.5 Consistent with diabetes Diabetes Care, 33(Supp 1):S1-S61, 2009 Estimated Average Glucose 174 mg/dL 05/24/2025 1:26 AM EDT [facility] Blood specimen / Unknown 05/23/2025 6:19 PM EDT 05/23/2025 6:54 PM EDT us Zuhair Laura MD LAB BLOOD ORDERABLES Final Resul t [address] [address], [address] [address] * (ABNORMAL) Partial Thromboplastin Time (PTT) (05/23/2025 6:19 PM EDT) Anticoagulant IV HEPARIN, UNFRACTIONATED 05/23/2025 5:45 PM EDT [facility] Partial Thromboplastin Time (PTT) 72(H) 25 - 36 seconds 05/23/2025 7:14 PM EDT [facility] Blood Blood specimen / Unknown 05/23/2025 6:19 PM EDT 05/23/2025 6:54 PM EDT us Zuhair Laura MD LAB BLOOD ORDERABLES Final Resul t Performing Organization Address [facility] [place] [address], [place] [address] * Protime-INR (05/23/2025 6:19 PM EDT) Anticoagulant IV HEPARIN, UNFRACTIONATED 05/23/2025 5:45 PM EDT [facility] Prothrombin Time (PT) 12.0 10.0 - 13.5 seconds 05/23/2025 7:14 PM EDT [facility] INR 1.0 05/23/2025 7:14 PM EDT [facility] Comment:INR Therapeutic Rang es: Standard dose anticoagulant 2.0 to 3.0, High dose anticoagulant 2.5-3.5. Blood Blood specimen / Unknown 05/23/2025 6:19 PM EDT 05/23/2025 6:54 PM EDT us Zuhair Laura MD LAB BLOOD ORDERABLES Final Resul t Performing Organization Address [facility] [place] [place] [address], [address] [address] * (ABNORMAL) TSH, HIGHLY SENSITIVE (05/23/2025 6:19 PM EDT) [facility] TSH, Highly Sensitive 4.75(H) 0.27 - 4.20 mIU/L 05/23/2025 11:03 PM EDT [facility] 05/23/2025 6:19 PM EDT 05/23/2025 6:54 PM EDT us Zuhair Laura MD LAB BLOOD ORDERABLES Final Resul t Performing Organization Address [facility] [place] [address], [place] [address] * Magnesium (05/23/2025 6:19 PM EDT) [facility] Magnesium 2.0 1.6 - 2.7 mg/dL 05/23/2025 7:37 PM EDT [facility] Blood Blood specimen / Unknown 05/23/2025 6:19 PM EDT 05/23/2025 6:54 PM EDT us Zuhair Laura MD LAB BLOOD ORDERABLES Final Resul t Performing Organization Address [facility] [place] [place] [address], [place] [address] * [place] Heart Archive for reference only (05/23/2025 6:18 PM EDT) Griselda DAVILA - 05/23/2025 6:18 PM EDT This study has been auto finalized and does not contain a result. us File Room Provider IMG DIGITIZE FILMS Final Resu lt Performing Organization Address [facility] Co de Phone Number [place] [phone] * 10 Min ECG 12 lead (05/23/2025 5:25 PM EDT) [facility] Ventricular rate 69 BPM EKG [facility] Atrial rate 69 BPM EKG [facility] P-R interval 162 ms EKG [facility] QRS duration 78 ms EKG [facility] Q-T interval 446 ms EKG [facility] QTC calculation (Bazett) 478 ms EKG [facility] P axis 27 degrees EKG [facility] R axis 8 degrees EKG [facility] T axis 18 degrees EKG [facility] 05/23/2025 5:25 PM EDT Narrative EKG [facility] - 05/23/2025 9:16 PM EDT Normal sinus rhythm Septal infarct , age undetermined Abnormal ECG No previous ECGs available Confirmed by MD Strange Shishir ([id number]) on 05/23/2025 9:16:25 PM Procedure Note Erik Strange MD - 05/23/2025 Normal sinus rhythm Septal infarct , age undetermined Abnormal ECG No previous ECGs available Confirmed by MD Strange Shishir ([id number]) on 05/23/2025 9:16:25 PM us Bill Pratt MD ECG ORDERABLES Final Result [facility] from Last 3 Months Insurance MEDICAID OUT OF STATE [facility] Advance Directives * Full Code (Latest Code Status on File) Date Activated Date Inactivated Comments 05/23/2025 9:39 PM Question Answer Comments Decision Thoroughly Discussed with: Patient Care Teams Configuration Management Specialist Relationship Specialty Start Date End Date Gt Prescott MD [address] [place] [address] PCP - General Internal Medicine 05/24/25
--- OUTSIDE RECORDS SUMMARY | 2025-05-29 05:18 | XMS_ITS | Encounter Summary ---
Author Organization [employer] Address [address] [facility] [address] [place] [address] Care Team Providers Care C++ Professor Name Role Phone Unavailable Primary Care Provider Unavailabl e Reason for Visit * Reason Comments Med Refill Encounter Details Date Type Department Care Team (Late st Contact Info) Description 10/21/2023 Refill [facility] [address], [place] [phone] Miguel Ángel Chong DMD [address], [place] [phone] Encounter for dental examination Social History Tobacco [...]
--- OUTSIDE RECORDS SUMMARY | 2025-05-29 05:18 | XMS_ITS | Encounter Summary ---
Author Organization [employer] Address [address] [facility] [address] [place] [address] Care Team Providers Care Cake Froster Name Role Phone Unavailable Primary Care Provider Unavailabl e Reason for Visit * Reason Onset Date Comments Med Refill 03/11/2023 Encounter Details Date Type Department Care Team (Late st Contact Info) Description 03/11/2023 Telephone [facility] [address] [place], [place] [phone] Alexus Haney, DDS [address], [place] [phone] Med Refill Social History Tobacco Use Types [...]
--- OUTSIDE RECORDS SUMMARY | 2025-05-29 05:18 | XMS_ITS | Data Portability ---
Author Organization [facility] Pain Managem ent, PAIN OFFICE Address [address] [facility] [place] [address] Care Team Providers Care Fire Investigator Name Role Phone TEAM REH[facility] &WELLNESS Referring [...] causing mild flattening of the dural sac, udwu-uh-plldwje e right and mild left-sided foraminal stenosis. [...] She will follow up in ten weeks [email or web address] Not available 08/11/2024 17:00:50 11/14/2024 11/14/2024 Codie [...] causing mild flattening of the dural sac, dvjw-kr-xrztqaf e right and mild left-sided foraminal stenosis. [...] booked after insurance approval. She needs a wheelchair van driver on the day of the procedure. [...] causing mild flattening of the dural sac, jczh-dt-vlzrdgm e right and mild left-sided foraminal stenosis. [...] ten weeks [email or web address] Not available 12/14/2024 12:01:23 03/20/2025 03/20/2025 Codie Fernández is a 54 year old [...] causing mild flattening of the dural sac, rbgk-eh-mipadsg e right and mild left-sided foraminal stenosis. [...] booked after insurance approval. She needs a wheelchair van driver on the day of the procedure. [email or web address] Not available 03/20/2025 10:16:43 03/28/2025 03/28/2025 Codie Fernández is a 54 year old [...] causing mild flattening of the dural sac, dtex-ec-qswzgse e right and mild left-sided foraminal stenosis. [...] up in ten weeks [email or web address] Not available 03/28/2025 10:57:31 Plan of Treatment Reminders Order Date Submit [...] By Organization Details Last Modified Time 08/11/2024 73106 She was advised to continue activities as tolerated. [email or web address] Not available 08/11/2024 16:59:30 12/14/2024 40044 She was advised to continue activities as tolerated. [email or web address] Not available 12/14/2024 12:00:02 03/28/2025 60106 She was advised to continue activities as tolerated. [email or web address] Not available 03/28/2025 10:57:34 Reason for Referral None Reported. Problems Name Problem SNOMED Code Status Onset Date Resolution Date Notes Provider Name and Address Organization Details Recorded Time Low back pain 463718082 Active 2015 Carlita paul MD [address], [facility] [place], [address], [place] [facility] 6 15:50:45 Lumbosacral radiculitis 55313165 Active 2017 Carlita paul MD [address], [facility] [place], [address], [place] [facility] 8 10:17:40 Displacement of lumbar intervertebral disc without myelopathy 45691884 Active 2017 Carlita paul MD [address], [facility] [place], [address], [place] [facility] 8 10:17:41 Lumbosacral spondylosis without myelopathy 14837054 Active 2017 Carlita paul MD [address], [facility] [place], [address], [place] [facility] 8 10:17:42 Spinal stenosis of lumbar region 65738137 Active 2017 Carlita paul MD [address], [facility] [place], [address], [place] [facility] 8 10:17:43 Problem Notes None recorded. Procedures Surgical History Date Name Laterality Status Provider Name and Address Organization Details Recorded Time 03/28/20 25 Lumbar Epidural steroid injection under fluoroscopic guidance completed Carlita Aguilar MD [address] , [address], [place], [address], [place] [facility] 03/28/2025 10:58:05 12/15/19 25 Lumbar Epidural steroid injection under fluoroscopic guidance completed Carlita Aguilar MD [address], [place], [address], [place] [facility] 12/14/2024 12:00:56 08/11/20 24 Lumbar Epidural steroid injection under fluoroscopic guidance completed Carlita Aguilar MD [address], [place], [address], [place] [facility] 08/11/2024 17:00:18 06/07/20 24 total shoulder replacement completed Carlita Aguilar MD [address] , [address], [place], [address], [place] [facility] 07/28/2024 11:09:13 04/26/20 24 Lumbar Epidural steroid injection under fluoroscopic guidance completed Carlita Aguilar MD [address], [place], [address], [place] [facility] 04/26/2024 16:35:33 12/22/19 24 Lumbar Epidural steroid injection under fluoroscopic guidance completed Carlita Aguilar MD [address], [place], [address], [place] [facility] 12/22/2023 15:01:08 07/15/20 23 Lumbar Epidural steroid injection under fluoroscopic guidance completed Carlita Aguilar MD [address], [place], [address], [place] [facility] 07/15/2023 14:07:22 03/25/20 23 Lumbar Epidural steroid injection under fluoroscopic guidance completed Carlita Aguilar MD [address] [employer] [facility] , [address], [place], [address], [place] [facility] 03/25/2023 10:50:21 12/04/19 23 Lumbar Epidural steroid injection under fluoroscopic guidance completed Carlita Aguilar MD [address], [place], [address], [place] [facility] 12/03/2022 10:16:53 07/29/20 22 Lumbar Epidural steroid injection under fluoroscopic guidance completed Carlita Aguilar MD [address], [place], [address], [place] [facility] 07/29/2022 09:04:50 03/11/20 22 Lumbar Epidural steroid injection under fluoroscopic guidance completed Carlita Aguilar MD [address], [place], [address], [place] [facility] 03/11/2022 14:38:59 09/03/19 22 Radiofrequency of Lumbar/Sacral medial branches supplying the facets under fluoroscopic guidance completed Carlita Aguilar MD [address], [place], [address], [place] [facility] 09/03/2021 15:52:43 05/29/20 21 Fluoroscopic Guided Lumbar Facet Steroid Injections of levels completed Carlita Aguilar MD [address], [place], [address], [place] [facility] 05/29/2021 10:20:51 12/13/19 21 Fluoroscopic Guided Lumbar Facet Steroid Injections of levels completed Carlita Aguilar MD [address], [place], [address], [place] [facility] 12/12/2020 13:57:08 10/03/19 21 Lumbar Epidural steroid injection under fluoroscopic guidance completed Carlita Aguilar MD [address], [place], [address], [place] [facility] 10/03/2020 10:00:24 07/11/20 20 Lumbar Epidural steroid injection under fluoroscopic guidance completed Carlita Aguilar MD [address], [place], [address], [place] [facility] 07/11/2020 10:28:54 06/13/20 20 Fluoroscopic Guided Lumbar Facet Steroid Injections of levels completed Carlita Aguilar MD [address], [place], [address], [place] [facility] 06/13/2020 10:06:27 02/21/20 20 Lumbar Epidural steroid injection under fluoroscopic guidance completed Carlita Aguilar MD [address], [place], [address], [place] [facility] 02/21/2020 10:32:02 10/26/19 20 Fluoroscopic Guided Lumbar Facet Steroid Injections of levels completed Carlita Aguilar MD [address], [place], [address], [place] [facility] 10/26/2019 14:00:13 08/31/19 20 Lumbar Epidural steroid injection under fluoroscopic guidance completed Carlita Aguilar MD [address], [place], [address], [place] [facility] 09/05/2019 11:29:25 06/08/20 19 Fluoroscopic Guided Lumbar Facet Steroid Injections of levels completed Carlita Aguilar MD [address], [place], [address], [place] [facility] 06/10/2019 14:46:56 05/20/20 19 arthrodesis of foot completed Carlita Aguilar MD [address], [place], [address], [place] [facility] 06/08/2019 09:51:34 04/13/20 19 Lumbar Epidural steroid injection under fluoroscopic guidance completed Carlita Aguilar MD [address], [place], [address], [place] [facility] 04/20/2019 16:00:55 01/13/20 19 Lumbar Epidural steroid injection under fluoroscopic guidance completed Carlita Aguilar MD [address], [place], [address], [place] [facility] 01/12/2019 13:18:20 09/22/19 19 Lumbar Epidural steroid injection under fluoroscopic guidance completed Carlita Aguilar MD [address], [place], [address], [place] [facility] 09/23/2018 11:32:09 05/18/20 18 Lumbar Epidural steroid injection under fluoroscopic guidance completed Carlita Aguilar MD [address], [place], [address], [place] [facility] 05/18/2018 16:07:36 11/25/19 18 Lumbar Epidural steroid injection under fluoroscopic guidance completed Carlita Aguilar MD [address], [place], [address], [place] [facility] 11/24/2017 11:24:09 06/30/20 17 Lumbar Epidural steroid injection under fluoroscopic guidance completed Carlita Aguilar MD [address] , [address], [place], [address], [place] [facility] 07/03/2017 08:59:37 03/10/20 17 Lumbar Epidural steroid injection under fluoroscopic guidance completed Carlita Aguilar MD [address] [facility] , [address], [place], [address], [place] [facility] 03/10/2017 14:35:03 11/27/19 17 Lumbar Epidural steroid injection under fluoroscopic guidance completed Carlita Aguilar MD [address] , [address], [place], [address], [place] [facility] 11/26/2016 10:15:50 07/22/20 16 Lumbar Epidural steroid injection under fluoroscopic guidance completed Carlita Aguilar MD [address] [facility] , [address], [place], [address], [place] [facility] 07/22/2016 15:04:33 Joint Replacement completed Kerrie Oates [facility] 07/09/2016 14:28:12 Other completed Kerrie Oates [facility] 07/09/2016 14:29:02 Hernia Repair completed Kerrie Oates [facility] 07/09/2016 14:29:39 Other completed Kerrie Oatse [facility] 07/09/2016 14:30:26 Hysterectomy completed Kerrie Oates [facility] 07/09/2016 14:30:57 Other completed Kerrie Oates [facility] 07/09/2016 14:32:02 Carpal tunnel surgery completed Carlita Aguilar MD [address] , [address], [place], [address], [place] [facility] 06/26/2023 09:11:01 Imaging Results None recorded. Procedure Notes None recorded. Medical Equipment None Reported. Allergies Allergen ID Allergen Name Allergen Category Reaction Reaction Severity Criticality Documentation Date Start Date Code Code System Note Provider Name and Address Organization Details Recorded Time 58061 latex environme nt,medica tion itching rash Not available Not available Not available 09/22/2018 24786 91 RxNorm Kerrie Oates aamir, [place] [facility] 9 09:44:39 [...] SHARAN 1 HOUR PRIOR DENTAL PROCEDUR E 03/17 completed Not Available Not Available Not Available [...] 1 TABLET DAILY FOR 4 DAYS DIRECTED 03/17 completed Not Available Not Available Not Available ibuprofen 800 mg tablet TAKE 1 TABLET (800 MG TOTAL) BY MOUTH EVERY 8 (EIGHT) HOURS IF NEEDED FOR MILD PAIN. FOR 30 DAYS active Not Available Not [...] e 50 mg tablet TAKE 1 TABLET (50 MG TOTAL) BY MOUTH 1 (ONE) TIME EACH DAY. FOR 30 DAYS active Not Available Not [...] e 20 mg tablet TAKE 3 TABLETS ORAL DAILY FOR 5 DAYS THEN TAKE 2 TABLETS FOR 4 DAYS THEN TAKE 1 TABLET FOR 3 DAYS 03/20 completed Not Available Not Available Not Available prednison e 5 mg tablet TAKE DAILY W/FOOD 1 LUQR3ANS S,THEN 1/2TAB DAILY X7DAYS, THEN 1/2TAB EVERY [...] bromide 0.02 % solution for inhalatio n USE 1 VIAL VIA NEBULIZE R INHALED 4 TIMES A DAY NEEDED FOR [...] t Available cyclobenz aprine 5 mg tablet TAKE 1 TABLET BY MOUTH 3 TIMES A DAY IF NEEDED FOR MUSCLE SPASMS. active Not Available Not Available No t Available Stool Softener- Laxative 8.6 mg-50 mg [...] mg/1.91 mL (110 mg/mL) subcutane ous syringe 03/20 completed Not Available Not Available Not Available Vitals Date Recorded Body height Body mass index (BMI) Body weight Heart rate Oxygen saturation Oxygen saturation in Arterial blood by Pulse oximetry Pain severity - 0-10 verbal numeric rating [Score] - Reported Systolic And Diastolic Provider Name and Address Organization Details Last Updated DateTime 5 154.94 cm 31.9 kg/m2 93629.1 1 g 71 /min 98 % 98 % 3 116/81 mm[Hg] Carlita paul MD [address] , [address], [place], [address], [place] [facility] 5 11:12:48 Date Recorded Body height Pain severity - 0-10 verbal numeric rating [Score] - Reported Heart rate Oxygen saturation Oxygen saturation in Arterial blood by Pulse oximetry Systolic And Diastolic Provider Name and Address Organization Details Last Updated DateTime 5 154.94 cm 4 78 /min 97 % 97 % 123/70 mm[Hg] Susan Wright [facility] 5 11:40:24 Date Recorded Body height Body mass index (BMI) Body weight Heart rate Oxygen saturation Oxygen saturation in Arterial blood by Pulse oximetry Pain severity - 0-10 verbal numeric rating [Score] - Reported Systolic And Diastolic Provider Name and Address Organization Details Last Updated DateTime 5 154.94 cm 33.1 kg/m2 44898.6 6 g 67 /min 100 % 100 % 6 122/77 mm[Hg] Carlita paul MD [address] [facility] , [address], [place], [address], [place] [facility] 5 09:48:01 Date Recorded Body height Heart rate Oxygen saturation Oxygen saturation in Arterial blood by Pulse oximetry Systolic And Diastolic Provider Name and Address Organization Details Last Updated DateTime 5 154.94 cm 74 /min 98 % 98 % 148/77 mm[Hg] Almita Sofia [facility] 5 10:38:39 Date Recorded Body height Heart rate Oxygen saturation Oxygen saturation in Arterial blood by Pulse oximetry Pain severity - 0-10 verbal numeric rating [Score] - Reported Systolic And Diastolic Provider Name and Address Organization Details Last Updated DateTime 4 154.94 cm 68 /min 98 % 98 % 3 132/73 mm[Hg] Denita hernandez [facility] - [facility] 4 11:07:24 Social History Question Answer Notes LastModified by Organizat ion Details LastModified Time Tobacco Smoking Status Never Smoker Not Available [employer] 06/08/2020 03:16:12 Which Illicit Or Recreational Drugs Have You Used? No [id number] Information not available 06/08/2020 Education 8 Information no t available 07/09/2016 Live Alone Or With Others? With Others And 3 Children Information not available 07/09/2016 Marital Status [email or web address] Informatio n not available 07/09/2016 What Was The Date Of Your Most Recent Tobacco Screening? 01/12/2019 [id number] Information not available 06/08/2020 Sex: Unknown Functional Status Question Answer Note LastModified by Organization D etails LastModified Time What is your level of alcohol consumption? None [id number] Information not available 06/08/2020 Are you currently employed? No [id number] Information not available 06/08/2020 Mental Status None [...] Diagnosis SNOMED-CT Code Diagnosis ICD10 Code Diagnosis IMO Codes Diagnosis Note [id number] Carlita Aguilar MD PAIN OFFICE [address] [place] [address] 07/09/2016 13:59:18 07/13/2016 19:15:18 Lumbosacral radiculitis 68067763 M54.17 Displaceme nt of lumbar intervertebral disc without myelopathy 58737480 M51.26 Lumbosacra l spondylosis without myelopathy 53222268 M47.817 Spinal kj nosis of lumbar region 92346170 M48.06 [id number] Carlita Aguilar MD PAIN OFFICE [address] [place] [address] 07/22/2016 14:36:09 07/23/2016 08:49:04 Lumbosacral radiculitis 58964338 M54.17 Spinal kj nosis of lumbar region 71036752 M48.06 Lumbosacra l spondylosis without myelopathy 25400364 M47.817 Displaceme nt of lumbar intervertebral disc without myelopathy 87175773 M51.26 [id number] Carlita Aguilar MD PAIN OFFICE [address] [place] [address] 08/21/2016 09:37:12 08/21/2016 11:16:14 Lumbosacral radiculitis 93250763 M54.17 Displaceme nt of lumbar intervertebral disc without myelopathy 61290651 M51.26 Lumbosacra l spondylosis without myelopathy 13482728 M47.817 Spinal kj nosis of lumbar region 28555806 M48.06 [id number] Carlita Aguilar MD PAIN OFFICE [address] [place] [address] 11/26/2016 09:05:49 11/26/2016 10:32:43 Lumbosacral radiculitis 15996497 M54.17 Displaceme nt of lumbar intervertebral disc without myelopathy 88242730 M51.26 Lumbosacra l spondylosis without myelopathy 36831070 M47.817 Spinal kj nosis of lumbar region 61825979 M48.06 [id number] Carlita Aguilar MD PAIN OFFICE [address] [place] [address] 03/10/2017 13:13:41 03/11/2017 09:11:35 Lumbosacral radiculitis 43120432 M54.17 Displaceme nt of lumbar intervertebral disc without myelopathy 18542443 M51.26 Lumbosacra l spondylosis without myelopathy 90093414 M47.817 Spinal kj nosis of lumbar region 78616220 M48.06 [id number] Carlita Aguilar MD PAIN OFFICE [address] [place] [address] 06/30/2017 14:07:57 07/03/2017 09:19:34 Lumbosacral radiculitis 13008616 M54.17 Displaceme nt of lumbar intervertebral disc without myelopathy 14518112 1. Lumbosacra l spondylosis without myelopathy 82480142 M47.817 Spinal kj nosis of lumbar region 53472475 M48.062 [id number] Carlita Aguilar MD PAIN OFFICE [address] [place] [address] 11/02/2017 09:59:08 11/02/2017 10:18:49 Lumbosacral radiculitis 77295869 M54.17 Displaceme nt of lumbar intervertebral disc without myelopathy 20020530. Lumbosacra l spondylosis without myelopathy 25674641 M47.817 Spinal kj nosis of lumbar region 91071877 M48.062 [id number] Carlita Aguilar MD PAIN OFFICE [address] [place] [address] 11/24/2017 10:57:35 11/24/2017 14:35:43 Lumbosacral radiculitis 57995124 M54.17 Displaceme nt of lumbar intervertebral disc without myelopathy 20020530. Lumbosacra l spondylosis without myelopathy 69115586 M47.817 Spinal kj nosis of lumbar region 08352297 M48.062 [id number] Carlita Aguilar MD PAIN OFFICE [address] [place] [address] 05/18/2018 09:59:30 05/18/2018 16:10:36 Lumbosacral radiculitis 94095879 M54.17 Displaceme nt of lumbar intervertebral disc without myelopathy 20020530. Lumbosacra l spondylosis without myelopathy 44003499 M47.817 Spinal kj nosis of lumbar region 45890332 M48.062 [id number] Carlita Aguilar MD PAIN OFFICE [address] [place] [address] 09/22/2018 09:38:48 09/23/2018 11:34:42 Lumbosacral radiculitis 93985072 M54.17 Displaceme nt of lumbar intervertebral disc without myelopathy 20020530. Lumbosacra l spondylosis without myelopathy 13159995 M47.817 Spinal jk nosis of lumbar region 13128546 M48.062 [id number] Carlita Aguilar MD [facility] PAIN OFFICE [address] [place] [address] 01/12/2019 11:04:15 01/12/2019 13:20:35 Lumbosacral radiculitis 82776755 M54.17 Displaceme nt of lumbar intervertebral disc without myelopathy 47225957 M51.26 Lumbosacra l spondylosis without myelopathy 65080060 M47.817 Spinal kj nosis of lumbar region 11948667 M48.062 [id number] Carlita Aguilar MD PAIN OFFICE [address] [place] [address] 02/11/2019 08:47:12 02/28/2019 13:23:31 Lumbosacral radiculitis 54877904 M54.17 Displaceme nt of lumbar intervertebral disc without myelopathy 03198912 M51.26 Lumbosacra l spondylosis without myelopathy 17993798 M47.817 Spinal kj nosis of lumbar region 81224282 M48.062 [id number] Carlita Aguilar MD PAIN OFFICE [address] [place] [address] 04/13/2019 09:43:44 04/20/2019 16:03:11 Lumbosacral radiculitis 40035252 M54.17 Displaceme nt of lumbar intervertebral disc without myelopathy 18310701 M51.26 Lumbosacra l spondylosis without myelopathy 66432827 M47.817 Spinal kj nosis of lumbar region 82825713 M48.062 [id number] Carlita Aguilar MD PAIN OFFICE [address] [place] [address] 06/08/2019 09:39:51 06/10/2019 14:50:31 Lumbosacral radiculitis 05020634 M54.17 Displaceme nt of lumbar intervertebral disc without myelopathy 17948174 M51.26 Lumbosacra l spondylosis without myelopathy 78490162 M47.817 Spinal kj nosis of lumbar region 48722413 M48.062 [id number] Carlita Aguilar MD [facility] PAIN OFFICE [address] [facility] [place] [address] 08/01/2019 09:43:56 08/05/2019 14:50:16 Lumbosacral radiculitis 40603166 M54.17 Displaceme nt of lumbar intervertebral disc without myelopathy 48823449 M51.26 Lumbosacra l spondylosis without myelopathy 08916674 M47.817 Spinal kj nosis of lumbar region 19011484 M48.062 [id number] Carlita Aguilar MD PAIN OFFICE [address] [facility] [place] [address] 08/31/2019 09:15:58 09/05/2019 11:31:14 Lumbosacral radiculitis 04276673 M54.17 Displaceme nt of lumbar intervertebral disc without myelopathy 89855837 M51.26 Lumbosacra l spondylosis without myelopathy 57713394 M47.817 Spinal kj nosis of lumbar region 41055099 M48.062 06987 Carlita Aguilar MD PAIN OFFICE [address] [place] [address] 10/26/2019 10:33:53 10/26/2019 14:04:23 Lumbosacral radiculitis 70080583 M54.17 Displaceme nt of lumbar intervertebral disc without myelopathy 42497218 M51.26 Lumbosacra l spondylosis without myelopathy 66853351 M47.817 Spinal kj nosis of lumbar region 65024739 M48.062 [id number] Carlita Aguilar MD [facility] PAIN OFFICE [address] [place] [address] 02/21/2020 10:01:36 02/21/2020 10:34:34 Lumbosacral radiculitis 88417164 M54.17 Displaceme nt of lumbar intervertebral disc without myelopathy 33682767 M51.26 Lumbosacra l spondylosis without myelopathy 08841917 M47.817 Spinal kj nosis of lumbar region 98549659 M48.062 [id number] Carlita Aguilar MD [facility] PAIN OFFICE [address] [facility] [address] 03/26/2020 13:30:06 03/27/2020 14:14:35 Lumbosacral radiculitis 20283572 M54.17 Displaceme nt of lumbar intervertebral disc without myelopathy 67576814 M51.26 Lumbosacra l spondylosis without myelopathy 62615821 M47.817 Spinal kj nosis of lumbar region 32376337 M48.062 [id number] Carlita Aguilar MD PAIN OFFICE [address] [facility] [place] [address] 05/09/2020 09:32:27 05/09/2020 15:34:23 Lumbosacral radiculitis 35818070 M54.17 Displaceme nt of lumbar intervertebral disc without myelopathy 20020530 M5. Lumbosacra l spondylosis without myelopathy 15343786 M47.817 Spinal kj nosis of lumbar region 06958941 M48.062 [id number] Carlita Aguilar MD PAIN OFFICE [address] [facility] [place] [address] 06/13/2020 09:38:23 06/13/2020 10:36:59 Lumbosacral radiculitis 76824943 M54.17 Displaceme nt of lumbar intervertebral disc without myelopathy 20020530 M5.26 Lumbosacra l spondylosis without myelopathy 40550912 M47.817 Spinal kj nosis of lumbar region 26982236 M48.062 [id number] Carlita Aguilar MD PAIN OFFICE [address] [facility] [place] [address] 07/11/2020 09:09:30 07/11/2020 10:56:32 Lumbosacral radiculitis 63417959 M54.17 Displaceme nt of lumbar intervertebral disc without myelopathy 07603902 M51.26 Lumbosacra l spondylosis without myelopathy 64941015 M47.817 Spinal kj nosis of lumbar region 68969866 M48.062 [id number] Carlita Aguilar MD PAIN OFFICE [address] [facility] [place] [address] 10/01/2020 15:36:47 10/01/2020 15:48:00 Displacement of lumbar intervertebral disc without myelopathy 21790289 M51.26 Lumbosacra l radiculitis 52649208 M54.17 [id number] Carlita Aguilar MD PAIN OFFICE [address] [address] 10/03/2020 09:31:03 10/03/2020 10:06:13 Lumbosacral radiculitis 43244819 M54.17 Displaceme nt of lumbar intervertebral disc without myelopathy 30632803 M51.26 Lumbosacra l spondylosis without myelopathy 67422955 M47.817 Spinal kj nosis of lumbar region 05023855 M48.062 [id number] Carlita Aguilar MD PAIN OFFICE [address] [place] [address] 11/22/2020 10:56:55 11/23/2020 10:04:47 Lumbosacral radiculitis 59427504 M54.17 Displaceme nt of lumbar intervertebral disc without myelopathy 20444323 M51. Lumbosacra l spondylosis without myelopathy [id number] M47.817 Spinal kj nosis of lumbar region 93726888 M48.062 [id number] Carlita Aguilar MD PAIN OFFICE [address] [place] [address] 12/12/2020 13:06:16 12/12/2020 16:02:14 Lumbosacral radiculitis 46772273 M54.17 Displaceme nt of lumbar intervertebral disc without myelopathy 20020530 M51.26 Lumbosacra l spondylosis without myelopathy 96945077 M47.817 Spinal kj nosis of lumbar region 93646872 M48.062 66615 Carlita Aguilar MD PAIN OFFICE [address] [place] [address] 01/09/2021 14:00:49 01/09/2021 14:07:36 Lumbosacral radiculitis 80670866 M54.17 Displaceme nt of lumbar intervertebral disc without myelopathy 20020530 M51.26 Lumbosacra l spondylosis without myelopathy 64465774 M47.817 Spinal kj nosis of lumbar region 67076112 M48.062 38611 Carlita Aguilar MD PAIN OFFICE [address] [place] [address] 05/29/2021 09:55:12 05/29/2021 10:26:38 Lumbosacral radiculitis 02348893 M54.17 Displaceme nt of lumbar intervertebral disc without myelopathy 25042455 M51.26 Lumbosacra l spondylosis without myelopathy 59733994 M47.817 Spinal kj nosis of lumbar region 72296788 M48.062 41314 Carlita Aguilar MD PAIN OFFICE [address] [place] [address] 06/28/2021 09:03:36 06/28/2021 09:25:12 Lumbosacral radiculitis 18279600 M54.17 Displaceme nt of lumbar intervertebral disc without myelopathy 20020530 M51.26 Lumbosacra l spondylosis without myelopathy 51493785 M47.817 Spinal kj nosis of lumbar region 13732293 M48.062 32089 Carlita Aguilar MD PAIN OFFICE [address] [place] [address] 09/03/2021 13:12:29 09/03/2021 16:09:38 Lumbosacral radiculitis 60450731 M54.17 Displaceme nt of lumbar intervertebral disc without myelopathy 20020530 M51.26 Lumbosacra l spondylosis without myelopathy 23009589 M47.817 Spinal kj nosis of lumbar region 15466690 M48.062 83318 Carlita Aguilar MD PAIN OFFICE [address] [place] [address] 10/07/2021 09:03:04 10/07/2021 09:22:08 Lumbosacral radiculitis 24201183 M54.17 Displaceme nt of lumbar intervertebral disc without myelopathy 25742257 M51.26 Lumbosacra l spondylosis without myelopathy 46496515 M47.817 Spinal kj nosis of lumbar region 47256038 M48.062 39959 Carlita Aguilar MD [facility] PAIN OFFICE [address] [place] [address] 02/27/2022 14:14:40 02/27/2022 15:01:06 Lumbosacral radiculitis 41921179 M54.17 Displaceme nt of lumbar intervertebral disc without myelopathy 23417700 M51.26 Lumbosacra l spondylosis without myelopathy 63357910 M47.817 Spinal kj nosis of lumbar region 76208362 M48.062 97970 Carlita Aguilar MD SV PAIN OFFICE [address] [place] [address] 03/11/2022 14:10:41 03/11/2022 14:44:15 Lumbosacral radiculitis 90930790 M54.17 Displaceme nt of lumbar intervertebral disc without myelopathy 58114650 M51.26 Lumbosacra l spondylosis without myelopathy 24742160 M47.817 Spinal kj nosis of lumbar region 03511895 M48.062 31921 Carlita Aguilar MD SV PAIN OFFICE [address] [place] [address] 06/02/2022 14:36:35 06/02/2022 15:13:52 Lumbosacral radiculitis 04722576 M54.17 Displaceme nt of lumbar intervertebral disc without myelopathy 57294433 M51. Lumbosacra l spondylosis without myelopathy 94110599 M47.817 Spinal kj nosis of lumbar region 44780438 M48.062 72999 Carlita Aguilar MD SV PAIN OFFICE [address] [place] [address] 07/01/2022 10:50:13 07/01/2022 14:03:13 Lumbosacral radiculitis 75720005 M54.17 Displaceme nt of lumbar intervertebral disc without myelopathy 74814200 M51.26 Lumbosacra l spondylosis without myelopathy 97778171 M47.817 Spinal kj nosis of lumbar region 13035124 M48.062 54426 Carlita Aguilar MD [facility] PAIN OFFICE [address] [place] [address] 07/29/2022 08:27:40 07/29/2022 09:10:29 Lumbosacral radiculitis 92519491 M54.17 Displaceme nt of lumbar intervertebral disc without myelopathy 32842925 M51.26 Lumbosacra l spondylosis without myelopathy 86103528 M47.817 Spinal kj nosis of lumbar region 65049767 M48.062 98560 Carlita Aguilar MD [facility] PAIN OFFICE [address] [place] [address] 10/23/2022 08:32:02 10/23/2022 11:04:01 Lumbosacral radiculitis 61348034 M54.17 Displaceme nt of lumbar intervertebral disc without myelopathy 21243130 M51.26 Lumbosacra l spondylosis without myelopathy 66343358 M47.817 Spinal kj nosis of lumbar region 92999073 M48.062 35503 Carlita Aguilar MD [facility] PAIN OFFICE [address] [facility] [place] [address] 12/03/2022 08:53:57 12/03/2022 10:54:32 Lumbosacral radiculitis 77604869 M54.17 Displaceme nt of lumbar intervertebral disc without myelopathy 69041020 M51.26 Lumbosacra l spondylosis without myelopathy 97704850 M47.817 Spinal kj nosis of lumbar region 73788734 M48.062 73309 Carlita Aguilar MD [facility] PAIN OFFICE [address] [facility] [place] [address] 02/19/2023 09:18:24 02/19/2023 10:31:40 Spinal stenosis of lumbar region 75045695 M48.062 Displaceme nt of lumbar intervertebral disc without myelopathy 34996116 M51.26 Lumbosacra l radiculitis 65088063 M54.17 Lumbosacra l spondylosis without myelopathy 33969615 M47.817 27229 Carlita Aguilar MD [facility] PAIN OFFICE [address] [place] [address] 03/25/2023 09:02:29 03/25/2023 11:21:54 Lumbosacral radiculitis 58719451 M54.17 Displaceme nt of lumbar intervertebral disc without myelopathy 28850907 M51.26 Lumbosacra l spondylosis without myelopathy 35890369 M47.817 Spinal kj nosis of lumbar region 07675276 M48.062 87451 Carlita Aguilar MD [facility] PAIN OFFICE [address] [place] [address] 06/26/2023 08:48:28 06/26/2023 10:32:50 Spinal stenosis of lumbar region 52760714 M48.062 Displaceme nt of lumbar intervertebral disc without myelopathy 70368738 M51.26 Lumbosacra l radiculitis 92361751 M54.17 Lumbosacra l spondylosis without myelopathy 87305013 M47.817 07646 Carlita Aguilar MD [facility] PAIN OFFICE [address] [place] [address] 07/15/2023 10:27:39 07/15/2023 15:36:47 Spinal stenosis of lumbar region 84255090 M48.062 Lumbosacra l radiculitis 92065983 M54.17 Displaceme nt of lumbar intervertebral disc without myelopathy 40864856 M51.26 Lumbosacra l spondylosis without myelopathy 59347287 M47.817 78853 Carlita Aguilar MD SV PAIN OFFICE [address] [place] [address] 10/16/2023 08:40:15 10/16/2023 10:13:18 Spinal stenosis of lumbar region 19205292 M48.062 Displaceme nt of lumbar intervertebral disc without myelopathy 24237575 M51.26 Lumbosacra l radiculitis 44982993 M54.17 Lumbosacra l spondylosis without myelopathy 14462901 M47.817 26553 Carlita Aguilar MD [facility] PAIN OFFICE [address] [place] [address] 12/22/2023 14:38:42 12/22/2023 15:55:19 Spinal stenosis of lumbar region 55622536 M48.062 Lumbosacra l radiculitis 57159285 M54.17 Displaceme nt of lumbar intervertebral disc without myelopathy 89889089 M51.26 Lumbosacra l spondylosis without myelopathy 93245590 M47.817 06730 Carlita Aguilar MD PAIN OFFICE [address] [facility] [place] [address] 03/23/2024 14:43:41 03/23/2024 16:19:28 Lumbosacral radiculitis 88636199 M54.17 Displaceme nt of lumbar intervertebral disc without myelopathy 35890167 M51.26 Spinal kj nosis of lumbar region 35558851 M48.062 Lumbosacra l spondylosis without myelopathy 31813316 M47.817 54476 Carlita Aguilar MD PAIN OFFICE [address] [place] [address] 04/26/2024 11:20:20 04/26/2024 16:39:44 Spinal stenosis of lumbar region 23389240 M48.062 Lumbosacra l radiculitis 59175076 M54.17 Displaceme nt of lumbar intervertebral disc without myelopathy 99027854 M51.26 Lumbosacra l spondylosis without myelopathy 97767486 M47.817 75566 Carlita Aguilar MD PAIN OFFICE [address] [place] [address] 07/28/2024 10:57:06 07/28/2024 16:19:19 Lumbosacral radiculitis 98219634 M54.17 Displaceme nt of lumbar intervertebral disc without myelopathy 62970020 M51.26 Spinal kj nosis of lumbar region 12234077 M48.062 Lumbosacra l spondylosis without myelopathy 65520509 M47.817 10533 Carlita Aguilar MD PAIN OFFICE [address] [place] [address] 08/11/2024 10:59:11 08/11/2024 17:07:59 Spinal stenosis of lumbar region 84722386 M48.062 Lumbosacra l radiculitis 77592365 M54.17 Displaceme nt of lumbar intervertebral disc without myelopathy 73739194 M51.26 Lumbosacra l spondylosis without myelopathy 79426022 M47.817 [id number] Carlita Aguilar MD PAIN OFFICE [address] [place] [address] 11/14/2024 11:07:01 11/14/2024 15:22:28 Lumbosacral radiculitis 50884871 M54.17 Spinal kj nosis of lumbar region 07845871 M48.062 Displaceme nt of lumbar intervertebral disc without myelopathy 96835630 M51.26 Lumbosacra l spondylosis without myelopathy 88791583 M47.817 38790 Carliat Aguilar MD PAIN OFFICE [address] [place] [address] 12/14/2024 11:21:01 12/14/2024 16:02:11 Lumbosacral radiculitis 35659502 M54.17 Spinal kj nosis of lumbar region 32959632 M48.062 Displaceme nt of lumbar intervertebral disc without myelopathy 85239814 M51.26 Lumbosacra l spondylosis without myelopathy 28376582 M47.817 [id number] Carlita Aguilar MD PAIN OFFICE [address] [address] 03/20/2025 09:41:23 03/20/2025 10:26:17 Lumbosacral radiculitis 31403934 M54.17 Spinal kj nosis of lumbar region 69319221 M48.062 Displaceme nt of lumbar intervertebral disc without myelopathy 76670101 M51.26 Lumbosacra l spondylosis without myelopathy 35656209 M47.817 65503 Carlita Aguilar MD PAIN OFFICE [address] [place] [address] 03/28/2025 10:15:36 03/28/2025 11:44:42 Spinal stenosis of lumbar region 69879524 M48.062 Lumbosacra l radiculitis 31392677 M54.17 Displaceme nt of lumbar intervertebral disc without myelopathy 55681036 M51.26 Lumbosacra l spondylosis without myelopathy 82095524 M47.817 Health Concerns Section Related Observation LastModified by Organization Detai ls LastModified Time None Recorded Concern Status LastModified by Organization Details LastModified Time None Recorded Advance Directives Directive None Recorded Payers Insurance Date Sequence Insurance Name Policy Number Policy Chatterjee Covered Member ID Chatterjee Member ID Guarantor Name 09/25/2020 1 [facility] [id number] Codie Fernández [id number] Codie Fernández 09/25/2020 1 [facility] Kitty Fernández [id number] Codie Fernández 09/25/2020 1 [facility] (O) Kitty Fernández [id number] Codie Fernández 03/25/2025 1 [facility] - [facility] (MEDICAID REPLACEMENT - HMO) [facility] Codie Fernández [id number] Codie Fernández Notes Date Note Type Note Provider Name and Address Organization Details Recorded Time 08/11/2024 text/html She is here for a lumbar epidural steroid injection under fluoroscopic guidance. Carlita Aguilar MD [address] [place] [address] , [address], [place], [address], [place] [facility] 08/11/2024 17:11:07 [...] foot surgery on 11/05/2023 and is seeing [facility]. Her gait is altered due to ankle problems and this is impacting her low back pain.She had carpal tunnel surgery in February and May 2023. She had left shoulder replacement. She is doing better with physical therapy for her shoulder. Carlita Aguilar MD [address] [facility] , [address], [place], [address], [place] [facility] 11/29/2024 15:07:06 12/14/2024 text/html She is here for a lumbar epidural steroid injection under fluoroscopic guidance. Carlita Aguilar MD [address] [facility] , [address], [place], [address], [place] [facility] 12/14/2024 16:10:36 03/20/2025 text/html She is here for a follow up. She was last seen for a Lumbar epidural steroid injection under fluoroscopic guidance on 12/14/2024. She reports 90% pain benefit for 2 [...] foot surgery on 11/05/2023 and is seeing [facility]. Her gait is altered due to ankle problems and this is impacting her low back pain.She had carpal tunnel surgery in February and May 2023. She had left shoulder replacement. She is doing better with physical therapy for her shoulder.Her sister in law recently due to stomach cancer and she has to travel to [place] Carlita Aguilar MD [address] , [address], [place], [address], [place] [facility] 03/20/2025 10:35:25 03/28/2025 text/html She is here for a lumbar epidural steroid injection under fluoroscopic guidance. Carlita Aguilar MD [address] , [address], [place], [address], [place] [facility] 03/28/2025 11:47:12 OBGyn Episode No OBEpisode recorded.
--- OUTSIDE RECORDS SUMMARY | 2025-05-29 05:18 | XMS_ITS | Encounter Summary ---
Author Organization [employer] Address [address] [facility] 7t [place] [address] Care Team Providers Care Machine Adjuster Leader Case Trim Name Role Phone Unavailable Primary Care Provider Unavailabl e Reason for Visit * Reason Comments Med Change Request Encounter Details Date Type Department Care Team (Late st Contact Info) Description 07/26/[address] [facility] ADULT DENTAL [address] [place], [place] [phone] Miguel Ángel Chong DMD [address], [place] [phone] Encounter for dental examination Social History Tobacco [...]
--- OUTSIDE RECORDS SUMMARY | 2025-05-29 05:18 | XMS_ITS | Clinical Summary ---
Author Organization [facility] Location Address [address] [place] [address] Phone Care Team Providers Care Inspector Tester Sorter Name Role Phone Gt Prescott MD Primary Care Provider [phone] Allergies Active Allergy Reactions Criticality Noted Date [...] tabletIndication s:Severe persistent asthma, unspecified whether complicated (CMS/[facility] V28) TAKE 1 TABLET BY MOUTH AT [...] (pediatric),[place] re persistent asthma with (acute) exacerbation (CMS/[facility] V28) TAKE 1 TABLET BY MOUTH EVERY [...] Right carpal tunnel syndrome 11/10/2022 Pulmonary embolism ([facility] V24, [facility] V28) Prediabetes 02/04/2022 PLMD (periodic limb movement disorder) 9 Acquired pes planus of right foot 05/31/2019 Overview (05/26/2024): Surgery by Dr. Batres, 05/20/2019 Obesity (BMI 30-39.9) 03/03/2019 Overview (05/26/2024): Mar 2017: Sleeve gastrectomy s/p LAPBAND removal Subclinical hypothyroidism 12/13/2018 Pulmonary nodules 05/05/2018 Seasonal allergies 04/28/2018 Severe persistent asthma ([facility] V28) 8 Spinal stenosis of lumbar region 11/02/2017 Obstructive sleep apnea of adult 03/07/2017 Overview (05/26/2024): UNTREATED (August 2022) [facility] Home Polysomnogram: Date 02/27/2017; AHI 7, Unclassified apneas 1; Obstructive apneas 19; Central apneas 5; Mixed apneas 0; hypopneas 19; average oxygen saturation 96% (lowest 90% without saturations <88% for 5% or more of study). Treatment study ordered due to intolerance in the past. If insurance declines, will trial CPAP autoset instead. [facility] Polysomnogram treatment study. Date 03/22/2017. SE 87 % SM 91 %; spent 27 % of the study in REM. At the optimal pressure of 9; RDI 2 (AHI 2), Central apneas 2; Obstructive apneas 0; Mixed apneas 0; hypopneas 0; RERAs 0; and, average oxygen saturation was 92%. For the entire study, PLMs ~36. [facility] Polysomnogram: Date 08/11/2019; Wt 200#; [...] Team Description 04/20/2025 9:30 AM EDT Treatment [address] [address] Talon Pham PTA Fall, initial encounter (Primary Dx) 04/17/2025 8:30 AM EDT Treatment [address] [address] Talon Pham PTA Fall, initial encounter (Primary Dx); Muscle spasm 04/10/2025 8:00 AM EDT Treatment [address] [address] Clare Mukherjee, PT Fall, initial encounter (Primary Dx); Muscle spasm 04/05/2025 8:00 AM EDT Treatment [address] [address] Talon Pham PTA [place], initial encounter (Primary Dx); Muscle spasm 03/31/2025 7:30 AM EDT Treatment [address] [address] Clare Mukherjee, PT Fall, initial encounter (Primary Dx); Muscle spasm 03/27/2025 8:00 AM EDT Treatment [address] [address] Clare Mukherjee, PT [place], initial encounter (Primary Dx); Muscle spasm 03/16/2025 Telephone Adult Medicine [address] [address] Gt Prescott MD 02/28/2025 8:00 AM EDT Office Visit Bariatric Surgery - [facility] [address] [facility] [address] [place] [address] Mitch Mckinney MD Class 1 obesity due to excess calories with body mass index (BMI) of 34.0 to 34.9 in adult, unspecified whether serious comorbidity present (Primary Dx) from Last 3 Months Immunizations Immunization Administration Dates Next Due Moderna SARS-CoV-2 COVID-19, [...] hiatal hernia OTHER SURGICAL HISTORY 2003 PROCEDURE: [place] TOTAL ABDOMINAL HYSTERECT W/WO RMVL TUBE OVARY; [...] 03/07/2017 DX:Obstructive sleep apnea of adult; COMMENT: [facility] Home Polysomnogram: Date 02/27/2017; AHI 7, Unclassified [...] obesity with BMI of 4 0.0-44.9, adult ([facility] V24, [facility] V28) 11/03/2014 DX:Morbid obesity wit h BMI of 40.0-44.9, adult ([facility]) Severe persistent asthma ([facility] V28) 03/08/2018 DX:Severe persistent asthma Allergic conjunctivitis of both eyes 04/28/2018 DX:Allergic conjunctivitis of both eyes Chronic rhinitis 04/28/2018 DX:Chronic rhin itis Total knee replacement status, right 02/01/2020 DX:Total knee replacement status, right; COMMENT: 02/10 COPD (chronic obstructive pu lmonary disease) ([facility] V24, [facility] V28) DX:COPD (chronic o bstructive pulmonary disease) ([facility]) Pulmonary embolism ([facility] V24, [facility] V28) 07/15/2022 DX:Pulmonary embolism ([facility]) Family History Medical History Relation Name Comments [...] care for your loved ones. For example, early childhood special educator or elderly care for an older adult? [...] Orthopedic Surgery [facility] [address] [facility] 160 [place] [address] Leena Obrien PA [address] [facility] 160 [place] [address] 06/07/2025 8:00 AM EDT Treatment [facility] Outpatient Rehabilitation [facility] [address] [facility] 350 [place] [phone] Clare Mukherjee, BASIL 07/25/2025 8:15 AM EST Office Visit Bariatric Surgery [facility] [address] [facility] 120 [place] [phone] Mitch Mckinney MD [address] [place] [phone] 07/28/2025 9:45 AM EST Office Visit Adult Medicine [address] [phone] Gt Prescott MD [address] [place] [phone] 01/05/2026 9:00 AM EDT Office Visit Adult Medicine [facility] [address] [place] [address] Gt Prescott MD [address] [place] [address] Health Maintenance Due Date Last Done Comments Hepatitis B Vaccines (1 of 3 - 19+ 3-dose series) 1987 Pneumococcal Vaccine: 50+ Years (2 of 2 - PCV) 10/03/2016 10/03/2015 Breast Cancer Screening 07/20/2020 07/20/2018, 05/07 HIV Screening 08/02/2022 COVID-19 Vaccine ( season) 2025 07/09/2022, 10/28/2021, 11/13/2020, Additional history exists Influenza Vaccine (#1) 2025 , 07/10/2022, 05/24/2021, Additional history exists Cervical Cancer Screening: HPV 12/24/2025 12/24/2020 Social Influencers of Health Screening 01/03/2026 01/03/2025 Cholesterol Screening (Lipid Panel) 12/31/2028 01/01/2024, 01/01/2024 Colorectal Cancer Screening: Colonoscopy 07/28/2029 07/28/2019 DTaP,Tdap,and Td Vaccines (6 - Td or Tdap) 11/04/2034 11/04/2024, 11/03/2023, 03/07/2013, Additional history exists RSV Immunization Adult Patients (1 - 1-dose 75+ series) 2043 Zoster Vaccines Completed 02/16/2021, 07/11/2020 Hepatitis C Screening Completed 05/24/2021 Depression Screening Completed 01/03/2025, 04/26/20 HIB Vaccines Aged Out No longer eligi [...] Health Maintenance Results * Depression Screening (04/26/2024) [facility] Depression Screening abstracted Result [facility] HEALTH MAINTENANCE Final Result * Lipid panel (01/01/2024) [facility] LDL/HDL Ratio 2 0 - 4 Triglycerides 55 0 - 150 mg/dL Cholesterol 194 0 - 200 mg/dL HDL 90 >=40 mg/dL LDL Cholesterol 93 0 - 100 mg/dL Blood Venous blood specimen / Unknown Result [facility] Provider LAB BLOOD ORDERABLES June l Result * Hepatitis C Screening (05/24/2021) [facility] Hepatitis C Screening abstracted Result [facility] Final Result * Cervical Cancer Screening: HPV (12/24/2020) [facility] Cervical Cancer Screening: HPV negative, abstracted Result [facility] Final Result * Colonoscopy (07/28/2019) [facility] Colonoscopy no interpretation , abstracted Anatomical Region Laterality Modality Other Result [facility] Provider HEALTH MAINTENANCE Final Result * SCR MAMMO BI INCL [...] Most Recently Relevant to Health Maintenance Insurance [facility] Advance Directives Documents on File Type Date Recorded Patient Public Works Supervisor Expl anation Health Care Decision (hx) 12/19/2014 [...] (hx) 12/15/2014 AD LEE DIRECTIVE Care Teams Inspector Tester Sorter Relationship Specialty Start Date End Date Gt Prescott MD [address] [place] [phone] PCP - General Internal Medicine 02/21/20
--- OUTSIDE RECORDS SUMMARY | 2025-05-29 05:18 | XMS_ITS | Encounter Summary ---
Author Organization [employer] [facility] Address [address] [facility] 7t [place] [address] Care Team Providers Care Residential Coordinator Name Role Phone Unavailable Primary Care [...]
--- OUTSIDE RECORDS SUMMARY | 2025-05-29 05:18 | XMS_ITS | Encounter Summary ---
Author Organization [employer] Address [address] [facility] 7t [place] [address] Care Team Providers Care Regional Hr Manager Name Role Phone Unavailable Primary Care Provider Unavailabl e Reason for Visit * Reason Onset Date Comments appt 01/19/2024 Encounter Details Date Type Department Care Team (Late st Contact Info) Description 01/19/2024 Telephone [facility] ADULT DENTAL [address] [place], [place] [phone] Alexus Haney, DDS [address], [place] [phone] appt Social History Tobacco Use Types Packs/Day [...]
--- OUTSIDE RECORDS SUMMARY | 2025-05-29 05:18 | XMS_ITS | Encounter Summary ---
Author Organization [employer] Address [address] [facility] 7t [place] [address] Care Team Providers Care Tester Electronic Scale Name Role Phone Unavailable Primary Care Provider Unavailabl e Encounter Details Date Type Department Care Team (Latest Contact Info) Description 08/21/2020 Abstract C CONVERSIONS Dental, Provider, DDS Social History Tobacco [...]
--- OUTSIDE RECORDS SUMMARY | 2025-05-29 05:18 | XMS_ITS | Encounter Summary ---
Author Organization [employer] Address [address] [facility] 7t [place] [address] Care Team Providers Care Cutting Machine Fixer Name Role Phone Unavailable Primary Care Provider Unavailabl e Encounter Details Date Type Department Care Team (Late st Contact Info) Description 04/28/2023 Abstract [facility] ADULT DENTAL [address] [place], [place] [phone] Alexus Haney DDS [address] [place], [place] [phone] Social History Tobacco Use Types Packs/Day Years [...]
--- OUTSIDE RECORDS SUMMARY | 2025-05-29 05:18 | XMS_ITS | Encounter Summary ---
Author Organization [facility] Address [address] [facility] 7t [place] [address] Care Team Providers Care Chief Green Officer Name Role Phone Unavailable Primary Care Provider Unavailabl e Reason for Visit * Reason Comments Med Refill Encounter Details Date Type Department Care Team (Late st Contact Info) Description 06/06/2024 Refill [facility] ADULT DENTAL [address] [place], [place] [phone] Miguel Ángel Chong DMD [address] [place], [place] [phone] Encounter for dental examination Social History Tobacco [...]
--- OUTSIDE RECORDS SUMMARY | 2025-05-29 05:18 | XMS_ITS | Encounter Summary ---
Author Organization [employer] Address [address] [facility] 7t [place] [address] Care Team Providers Care Senior Storage Engineer Name Role Phone Unavailable Primary Care Provider Unavailabl e Reason for Visit * Reason Comments Med Refill Encounter Details Date Type Department Care Team (Late st Contact Info) Description 08/23/2023 Refill [facility] ADULT DENTAL [address] [place], [place] [phone] Miguel Ángel Chong, AMOS [address] [place], [place] [phone] Encounter for dental examination Social History Tobacco [...]
--- OUTSIDE RECORDS SUMMARY | 2025-05-29 05:18 | XMS_ITS | Encounter Summary ---
Author Organization [employer] [facility] Address [address] [facility] 7t [place] [address] Care Team Providers Care Cotton Feeder Name Role Phone Unavailable Primary Care Provider Unavailabl e Reason for Visit * Reason Comments Med Refill Encounter Details Date Type Department Care Team (Late st Contact Info) Description 02/27/2025 Refill [facility] ADULT DENTAL [address] [place], [place] [phone] Miguel Ángel Chong DMD [address] [place], [place] [phone] Encounter for dental examination Social History Tobacco [...]
--- OUTSIDE RECORDS SUMMARY | 2025-05-29 05:18 | XMS_ITS | Encounter Summary ---
Author Organization [employer] Address [address] [facility] [address]t [place] [address] Care Team Providers Care Nail Mill Worker Name Role Phone Unavailable Primary Care Provider Unavailabl e Reason for Visit * Reason Comments Med Refill Encounter Details Date Type Department Care Team (Late st Contact Info) Description 09/24/2023 Refill [facility] ADULT DENTAL [address] [place], [place] [phone] Alexus Haney, DDS [address] [place], [place] [phone] Encounter for dental examination Social History Tobacco [...]
--- OUTSIDE RECORDS SUMMARY | 2025-05-29 05:18 | XMS_ITS | Encounter Summary ---
Author Organization [employer] [facility] Address [address] [facility] 7t [place] [address] Care Team Providers Care Marketing Operations Intern Name Role Phone Unavailable Primary Care Provider Unavailabl e Reason for Visit * Reason Comments Med Refill Encounter Details Date Type Department Care Team (Late st Contact Info) Description 01/24/2025 Refill [facility] ADULT DENTAL [address] [place], [place] [phone] Miguel Ángel Chong DMD [address] [place], [place] [phone] Encounter for dental examination Social History Tobacco [...]
--- OUTSIDE RECORDS SUMMARY | 2025-05-29 05:18 | XMS_ITS | Encounter Summary ---
Author Organization [employer] Address [address] [facility] 7t [place] [address] Care Team Providers Care Banana Handler Name Role Phone Unavailable Primary Care Provider Unavailabl e Encounter Details Date Type Department Care Team (Late st Contact Info) Description 12/23/2023 Orders Only [facility] ADULT DENTAL [address] [place], [place] [phone] Alexus Haney, DDS [address] [place], [place] [phone] Social History Tobacco Use Types Packs/Day Years [...]
--- OUTSIDE RECORDS SUMMARY | 2025-05-29 05:18 | XMS_ITS | Encounter Summary ---
Author Organization [employer] Address [address] [facility] 7t [place] [address] Care Team Providers Care Clam Dredger Name Role Phone Unavailable Primary Care Provider Unavailabl e Encounter Details Date Type Department Care Team (Late st Contact Info) Description 08/20/2022 Abstract [facility] ADULT DENTAL [address] [place], [place] [phone] Alexus Haney DDS [address] [place], [place] [phone] Social History Tobacco Use Types Packs/Day Years [...]
--- OUTSIDE RECORDS SUMMARY | 2025-05-29 05:18 | XMS_ITS | Encounter Summary ---
Author Organization [employer] Address [address] [facility] 7t [place] [address] Care Team Providers Care Timekeeper Name Role Phone Unavailable Primary Care Provider Unavailabl e Reason for Visit * Reason Comments Med Refill Encounter Details Date Type Department Care Team (Late st Contact Info) Description 09/30/2022 Refill [facility] ADULT DENTAL [address] [place] [address] Alexus Haney DDS [address] [place], [place] [phone] Pain (Primary Dx) Social History Tobacco Use [...]
--- OUTSIDE RECORDS SUMMARY | 2025-05-29 05:18 | XMS_ITS | Encounter Summary ---
Author Organization [employer] Address [address] [facility] [address]t [place] [address] Care Team Providers Care Skin Care Specialist Name Role Phone Unavailable Primary Care Provider Unavailabl e Reason for Visit * Reason Comments Med Refill Encounter Details Date Type Department Care Team (Late st Contact Info) Description 06/24/2023 Refill [facility] ADULT DENTAL [address] [place], [place] [phone] Alexus Haney, DDS [address] [place], [place] [phone] Encounter for dental examination Social History Tobacco [...]
--- OUTSIDE RECORDS SUMMARY | 2025-05-29 05:18 | XMS_ITS | Encounter Summary ---
Author Organization [facility] Address [address] [facility] 7t [place] [address] Care Team Providers Care Blow Mold Operator Name Role Phone Unavailable Primary Care Provider Unavailabl e Reason for Visit * Reason Comments Med Refill Encounter Details Date Type Department Care Team (Late st Contact Info) Description 12/24/2023 Refill [facility] ADULT DENTAL [address] [place], [place] [phone] Miguel Ángel Chong DMD [address] [place], [place] [phone] Encounter for dental examination Social History Tobacco [...]
--- OUTSIDE RECORDS SUMMARY | 2025-05-29 05:18 | XMS_ITS | Encounter Summary ---
Author Organization [employer] Address [address] [facility] 7t [place] [address] Care Team Providers Care Home Health Care Case Manager Name Role Phone Unavailable Primary Care Provider Unavailabl e Encounter Details Date Type Department Care Team (Late st Contact Info) Description 04/28/2023 Abstract [facility] ADULT DENTAL [address] [place], [place] [phone] Alexus Haney DDS [address] [place], [place] [phone] Social History Tobacco Use Types Packs/Day Years [...]
--- OUTSIDE RECORDS SUMMARY | 2025-05-29 05:18 | XMS_ITS | Clinical Summary ---
Author Organization [employer] [facility] Address [address] [place] [address] Care Team Providers Care Interlocking And Signal Mechanic Name Role Phone Gt Prescott MD Primary Care Provider [phone] Allergies Active Allergy Reactions Criticality Noted Date [...] 210 MG/1.91ML SOSY 0 05/12/2023 Active Tiotropium Minetto Monohydrate (Spiriva Respimat) 1.25 MCG/ACT AERS Inhale [...] age to complete this topic Care Teams Interlocking And Signal Mechanic Relationship Specialty Start Date End Date Gt Prescott MD PCP - General Internal Medicine 05/28/23
--- OUTSIDE RECORDS SUMMARY | 2025-05-29 05:18 | XMS_ITS | Encounter Summary ---
Author Organization [employer] Address [address] [facility] [address] [place] [address] Care Team Providers Care Forester Silviculture Name Role Phone Unavailable Primary Care Provider [...]
--- OUTSIDE RECORDS SUMMARY | 2025-05-29 05:18 | XMS_ITS | Encounter Summary ---
Author Organization [employer] Address [address] [facility] 7t [place] [address] Care Team Providers Care Room Server Name Role Phone Unavailable Primary Care Provider Unavailabl e Reason for Visit * Reason Onset Date Comments crown fell off 04/06/2023 Encounter Details Date Type Department Care Team (Late st Contact Info) Description 04/06/2023 Telephone [facility] ADULT DENTAL [address] [place], [place] [phone] Alexus Haney DDS [address] [place], [place] [phone] crown fell off Social History Tobacco Use [...]
--- OUTSIDE RECORDS SUMMARY | 2025-05-29 05:18 | XMS_ITS | Encounter Summary ---
Author Organization [employer] Address [address] [facility] [address]t [place] [address] Care Team Providers Care Pet Food Deboner Name Role Phone Unavailable Primary Care Provider Unavailabl e Reason for Visit * Reason Comments Med Refill Encounter Details Date Type Department Care Team (Late st Contact Info) Description 07/22/2023 Refill [facility] ADULT DENTAL [address] [place], [place] [phone] Miguel Ángel Chong DMD [address] [place], [place] [phone] Encounter for dental examination Social History Tobacco [...]
--- OUTSIDE RECORDS SUMMARY | 2025-05-29 05:18 | XMS_ITS | Clinical Summary ---
Author Organization [employer] Address [address] [facility] [address] [place] [address] Care Team Providers Care Animal Husbandry Technician Name Role Phone Unavailable Primary Care [...] adult 03/07/2017 Overview (07/12/2024): UNTREATED (August 2022) [facility] Home Polysomnogram: Date 02/27/2017; AHI 7, Unclassified apneas 1; Obstructive apneas 19; Central apneas 5; Mixed apneas 0; hypopneas 19; average oxygen saturation 96% (lowest 90% without saturations <88% for 5% or more of study). Treatment study ordered due to intolerance in the past. If insurance declines, will trial CPAP autoset instead. [facility] Polysomn[place] treatment study. Date 03/22/2017. SE 87 % SM 91 %; spent 27 % of the study in REM. At the optimal pressure of 9; RDI 2 (AHI 2), Central apneas 2; Obstructive apneas 0; Mixed apneas 0; hypopneas 0; RERAs 0; and, average oxygen saturation was 92%. For the entire study, PLMs ~36. [facility] Polysomnogram: Date 08/11/2019; Wt 200#; BMI 38; [...] Type Department Care Team Description 02/27/2025 Refill [facility] ADULT DENTAL [address] [place] [address] Miguel Ángel Chong DMD Encounter for dental [...] Most Recently Relevant to Health Maintenance Insurance [facility] MEDICAID STAND ADULT
--- NOTE | 2025-05-29 05:25 | PC.NURSE ---
pt resting comfortably in room with family. remains nonverbal at this time. pt did shake her head no when asked if she was in pain, or if she needed anything.
[2025-05-29 05:51] LABS: Free T4 (Free Thyroxine) 0.92 ng/dL (0.71-1.85)
[2025-05-29] MEDS: iohexoL 350 MG/ML 100 ML INFUS..BTL 75 ML IV (06:38)
--- NOTE | 2025-05-29 06:48 | ED.AMS ---
HPI - Altered Mental Status General Chief Complaint: Altered Mental Status Stated Complaint: AMS Time Seen by Provider: 05/29/25 04:17 Source: family, EMS and old records reviewed Mode of arrival: EMS Limitations: altered mental status History of Present Illness ED Provider: Dr. Barbi Green HPI narrative: 55-year-old female with a history of COPD, recent NSTEMI on Brilinta presenting via EMS from home with altered mental status. EMS reports that they were called to the home by the family for the patient being altered, unable to speak. She is normally conversational and ambulatory at baseline. She has never had issues with expressive aphasia before. Reportedly went to bed around 9:00 p.m. which was her last known well on 05/28/2025. Approximately 6 hours later at around 3:00 a.m., reports hearing her ?scream ?. Found her in her room, crying but unable to talk. She was able to ambulate from her bed to the stretcher per EMS. Vital signs and blood sugar were normal. Has no history of psychiatric disease, stroke or seizure disorders. Has been taking all of her medications, which have recently changed since her discharge from the hospital last week. No reported trauma. Patient is unable to give any history secondary to her altered mental status. Related Data Home Medications ?Medication ?Instructions ?Recorded ?Confirmed calcium citrate 200 mg PO DAILY 12/26/21 05/29/25 cholecalciferol (vitamin D3) 25 25 mcg PO DAILY 12/26/21 05/29/25 mcg (1,000 unit) tablet fluticasone propionate 230 1 puff inhalation BID 12/26/21 05/29/25 mcg-salmeterol 21 mcg/actuation HFA inhaler (Advair HFA) hydroxyzine HCl 25 mg tablet 1 tab PO Q8H PRN itch 12/26/21 05/29/25 montelukast 10 mg tablet 10 mg PO BEDTIME 12/26/21 05/29/25 omeprazole 40 mg capsule,delayed 40 mg PO DAILY@0630 12/26/21 05/29/25 release folic acid 1 mg tablet 1 mg PO DAILY 07/24/22 05/29/25 bupropion HCl 300 mg 24 hr tablet, 300 mg PO DAILY 12/22/23 05/29/25 extended release naltrexone 50 mg tablet 50 mg PO DAILY 12/22/23 05/29/25 aspirin 81 mg tablet,delayed 81 mg PO DAILY 05/29/25 05/29/25 release atorvastatin 80 mg tablet 80 mg PO DAILY 05/29/25 05/29/25 losartan 50 mg tablet 50 mg PO DAILY 05/29/25 05/29/25 metoprolol succinate 25 mg 25 mg PO DAILY 05/29/25 05/29/25 tablet,extended release 24 hr naloxone 4 mg/actuation nasal spray 4 mg intranasal Q2M PRN Opioid 05/29/25 05/29/25 Overdose ticagrelor 90 mg tablet (Brilinta) 90 mg PO BID 05/29/25 05/29/25 Previous Rx's ?Medication ?Instructions ?Recorded ipratropium 20 mcg-albuterol 100 1 puff inhalation QID COPD 30 days 11/14/24 mcg/actuation mist for inhalation #4 grams (Combivent Respimat) ipratropium bromide 0.02 % 2.5 ml inhalation QID PRN for 12/20/24 solution for inhalation wheezing #125 mL Allergies Allergy/AdvReac Type Severity Reaction Status Date / Time latex (Latex) Allergy Mild UNKNOWN Verified 05/29/25 04:35 cats, pollen, mold Allergy Unknown Unknown Uncoded 05/29/25 04:35 Latex Allergy Unknown Unknown Uncoded 05/29/25 04:35 Review of Systems Review of Systems: Yes Unobtainable due to mental status PMFSH Past Medical History Medical History Allergic alveolitis Bronchitis SPARKLE (obstructive sleep apnea) Allergic rhinitis Asthma Pulmonary embolism Pulmonary cavitary lesion COPD (chronic obstructive pulmonary disease) Pulmonary cavitary lesion Asthma Surgical History H/O gastric sleeve History of partial hysterectomy History of surgery on wrist History of ankle surgery History of knee replacement Family History Family History Father Prostate cancer Social History Social History Household Members: Spouse and Children Caregiver staying overnight: No Housing: House Are you a primary daycare provider to a significant other at home: Yes (mother) Do you presently have visiting nurse or other home services: No Alcohol intake: never Patient Tobacco Use Status: Never used Tobacco Advance Directives Date on File: 12/26/21 service: No Current occupational status: disabled Physical Exam ED Exam Exam: GENERAL: Chronically ill-appearing, GCS 15, expressive aphasia SKIN: Normal skin color for ethnicity, warm, dry, no rashes noted. HEENT: Normocephalic, atraumatic, no stridor, posterior oropharynx nonerythematous, EOMI. NECK: Soft, supple, full ROM, midline structures nontender, no step-offs, no deformities, no lymphadenopathy. CHEST: Heart regular rate and rhythm, no murmurs, symmetric chest rise and fall. PULMONARY: Clear to auscultation bilaterally, no labored breathing, no wheezes/rhales/ rhonchi. ABDOMINAL: Soft, nondistended, nontender, positive bowel sounds in all quadrants. : Deferred. MUSCULOSKELETAL: Normal tone, full range of motion, no deformities, no peripheral edema. NEURO: Alert and oriented to person, moves all extremities equally, expressive aphasia, slight facial droop on the right, otherwise cranial nerves II-XII intact. PSYCHIATRIC: Tearful, expressive aphasia Vital Signs: Vital Signs - 24 hr 05/29/25 04:34 05/29/25 05:24 05/29/25 07:22 Temperature 98.0 F Pulse Rate 63 60 61 Respiratory Rate 20 16 12 Blood Pressure 144/78 H 141/60 H 153/74 H Pulse Oximetry 99 100 97 Oxygen Delivery Method Room Air Room Air Room Air BMI result Body Mass Index 29.8 NIH Stroke Scale Internal: Initial- Upon Arrival Time: 04:15 Level of Consciousness: Alert Level of Consciousness Questions: Answers both questions correctly Level of Consciousness Commands: Performs both tasks correctly Best Gaze: Normal Visual: No visual loss Facial Palsy: Minor paralyis Motor Arm (Right): No drift Motor Arm (Left): No drift Motor Leg (Right): No drift Motor Leg (Left): No drift Limb Ataxia: Absent Sensory: Normal Best Language: Mute, global aphasia Dysarthia: Severe dysarthria Extinction and Inattention: No abnormality Score: 6 Course Course Course Narrative: CTA negative, PO aspirin given, admit to hospitalist, symptoms still present Laura Red DO 05/29/25 0748 Medications Administered Generic Name Dose Route Start Last Admin Trade Name Freq PRN Reason Stop Dose Admin Albuterol/Ipratropium 3 ml 05/29/25 13:00 05/29/25 20:12 Albuterol/Iprat 2.5/0.5mg 3 Ml Ampul.Neb INHALE 3 ml RQID GIUSEPPE Administration Enoxaparin Sodium 40 mg 05/29/25 09:00 05/29/25 10:04 Enoxaparin Sodium 40 Mg/0.4 Ml Syringe SUBCUT 40 mg Q24H GIUSEPPE Administration Fluticasone/Vilanterol 1 puff 05/29/25 13:00 05/29/25 12:51 Fluticasone/Vilanterol 200/25 Blst.W.Dev INHALE Not Given RDAILY GIUSEPPE Dextrose/Lactated Ringer's 1,000 mls @ 100 mls/hr 05/29/25 13:15 05/29/25 16:23 D5lr IVCONT 100 mls/hr .Q10H GIUSEPPE Administration Sodium Chloride 3 ml 05/29/25 16:00 05/29/25 17:11 0.9 % Sodium Chloride Flush 3 Ml Syringe IVFLUSH Not Given QSHIFT [facility] Discontinued Medications Generic Name Dose Route Start Last Admin Trade Name Freq PRN Reason Stop Dose Admin Aspirin 81 mg 05/29/25 07:46 05/29/25 08:36 Aspirin 81 Mg Tab.Chew PO 05/29/25 07:47 81 mg ONCE ONE Administration Iohexol 75 ml 05/29/25 06:37 05/29/25 06:38 Iohexol 350 Mg/Ml 100 Ml Infus..Btl IV 05/29/25 06:38 75 ml ONCE ONE Administration Montelukast Sodium 10 mg 05/29/25 21:00 05/29/25 19:49 Montelukast Sodium 10 Mg Tablet PO Not Given BEDTIME GIUSEPPE Ticagrelor 90 mg 05/29/25 21:00 05/29/25 19:49 Ticagrelor 90 Mg Tablet PO Not Given BID [facility] Medical Decision Making Medical Decision Making [facility] Narrative: Patient presents today with a chief complaint of altered mental status. Differential diagnosis for AMS is incredibly broad and includes infection, intracranial process such as hemorrhage, stroke or mass, electrolyte abnormality, hypercarbia, hypoxia, toxic encephalopathy, among many others. Broad-based workup was initiated to further evaluate the etiology of patient's symptoms based on the above exam and history. Upon arrival to the emergency department, patient is out of the window for TNK administration. Her NIHSS is 6 for expressive aphasia, dysarthria and a slight right-sided facial droop. She is on a blood thinner without any reports of trauma. We will order CT brain to evaluate for bleed given her recent cardiac catheterization. 5:59 AM 05/29/2025 (Dr. Barbi Green, Florin.O.) Family reports that her facial droop may be baseline for her. She has very minor flattening of the nasolabial fold on that side. At this point, patient is more alert but still unable to speak. She has severe dysarthria and expressive aphasia. I worry that she is having a stroke. We will obtain a CTA to evaluate further. Family reports she has been taking all of her blood thinners including Brilinta as prescribed. She remains outside of the window for TNK but may be in a window for treatment for large vessel occlusion 7:34 AM 05/29/2025 (Dr. Barbi Green, D.O.) signing out ot oncoming provider pending CTA result and final disposition. Differential Diagnosis Differential Diagnoses: The differential diagnosis associated with the presentation includes (as above) Admission/Observation Consideration of admission/observation: Escalation of care including admission/observation considered Consult Healthcare Provider Management of the patient was discussed with: Hospitalist Lab Data MDM Lab Attestation statement: I reviewed the patient's lab results. 05/29/25 04:31 05/29/25 04:31 Labs: Lab Results 05/29/25 Range/Units 04:31 WBC 7.9 (4.8-10.8) X10*3/uL RBC 4.50 (4.20-5.50) X10*6/uL Hgb 10.8 L (12.0-16.0) g/dl Hct 34.5 L (37.0-47.0) % MCV 76.7 L (80.0-98.0) fL MCH 24.0 L (27.0-33.0) pg MCHC 31.3 (31.0-35.0) g/dl RDW 18.2 H (11.0-16.0) % Plt Count 354 (160-400) X10*3/uL MPV 9.7 (9.4-12.3) fL Immature Gran % (Auto) 0.8 H (0.0-0.4) % Neut % (Auto) 67.1 (45-73) % Lymph % (Auto) 20.1 (20-40) % [place] % (Auto) 7.8 (2-11) % Eos % (Auto) 3.6 (0-4) % Baso % (Auto) 0.6 (0-2) % Lymph # (Auto) 1.6 (1.2-4.9) X10*3/uL [place] # (Auto) 0.6 (0.1-1.2) X10*3/uL Eos # (Auto) 0.3 (0.0-0.4) X10*3/uL Baso # (Auto) 0.1 (0.0-0.2) X10*3/uL Abs Immat Gran (auto) 0.06 H (0.00-0.03) X10*3/uL Absolute Neuts (auto) 5.3 (2.0-8.3) x10*3/uL Absolute Nucleated RBC 0.000 (0.0-0.012) X10*3/uL Nucleated RBC % (auto) 0.0 (0.0-0.2) /100WBC PT 11.3 (10.9-12.4) SEC INR 1.0 (0.9-1.1) Sodium 139 (135-145) mmol/L Potassium 4.3 (3.3-5.1) mmol/L Chloride 109 H (96-108) mmol/L Carbon Dioxide 23 (22-29) mmol/L Anion Gap 11 L (12-20) BUN 22 H (9-16) mg/dL Creatinine 0.95 (0.5-1.4) mg/dL Estim Creat Clear Calc 63.9 Estimated GFR > 60 Random Glucose 89 (60-115) mg/dL Calcium 8.9 (8.4-10.2) mg/dL Magnesium 1.9 (1.6-2.6) mg/dL Total Bilirubin 0.4 (0.0-1.0) mg/dL AST 33 H (5-31) U/L ALT 15 (0-31) U/L Alkaline Phosphatase 77 (39-117) U/L Troponin I High Sens 14.0 D (<3.5-17.0) ng/L Total Protein 6.8 (6.5-8.0) g/dL Albumin 3.7 (3.5-5.0) g/dL Triglycerides 73 (<150) mg/dL Cholesterol 172 (<200) mg/dL LDL Cholesterol, Calc 86 (<100) mg/dL HDL Cholesterol 72 (>40) mg/dL TSH 5.51 H (0.32-4.0) uIU/mL Free T4 0.92 (0.71-1.85) ng/dL Ethyl Alcohol < 10 mg/dL Independent Interpretation I performed an independent interpretation of an: EKG Interpretation: My independent interpretation of the ECG reveals normal sinus rhythm with rate of 65, normal axis, normal intervals, no ST elevations or depressions to suggest ischemic changes, relatively unchanged from previous on 05/23/2025. Radiology Impression Discussion of test interpretation with radiology: I have reviewed the radiologist's reading. Radiologist Impression: CT of the head without intravenous contrast Comparison: CT/SR - CT HEAD/BRAIN WO IV CON - 01/15/25 16:10 EDT Findings: The ventricles and sulci are prominent, consistent with generalized cerebral parenchymal volume loss. The ventricles are symmetric and the basilar cisterns are intact. Mild periventricular, deep and subcortical white matter hypodensities are nonspecific but statistically reflect the sequela of chronic small vessel ischemic change.Stable mildly enlarged partially empty sella. No intracranial hemorrhage, extra-axial fluid collection, midline shift or mass-effect is evident. No evidence of acute large vessel or territorial ischemia. Brainstem and cerebellum unremarkable. Vascular calcifications indicate intracranial atherosclerosis. The imaged portion of the paranasal sinuses are clear. No mastoid effusions are demonstrated. The orbital contents are unremarkable. Calvarium is intact. Impression: 1. No CT evidence of acute intracranial abnormality. 2. Cerebral volume loss, intracranial atherosclerotic disease and mild sequela of chronic small vessel ischemic disease. This document has been electronically signed by: Cb Montana MD on 05/29/2025 05:33:03 Independent Historian Clinical information obtained from an independent historian. History obtained from or confirmed by: Spouse, EMS and Other (daughter) External Record Review External record reviewed: Inpatient record Chronic Conditions Patient?s care impacted by: Other (COPD, ACS) Critical Care Time Critical Care Time Critical Care Time: Yes Total Critical Care Time: 40 Attestation: CRITICAL CARE TIME: 40 minutes of critical care time was spent in direct patient care at the bedside or in the immediate area with this patient. Critical care was necessary to treat or prevent imminent or life-threatening deterioration of the following conditions acute neurologic deficits due to CVA. This patient is high risk for decompensation and/or . This time was spent assessing and managing the patient, interpreting labs and imaging, coordinating care with other medical providers, gathering history from either the patient, their representatives, EMS or chart review, and discussing management with admitting team. Discharge Plan Discharge Clinical Impression: Expressive aphasia Patient Disposition: Admitted As Inpatient Interventions: Admission Worksheet (ED) Last Done: 05/29/25 16:37 Discharge Date/Time: 05/29/25 17:35
--- NOTE | 2025-05-29 07:22 | PC.NURSE ---
Accepted care of pt. Pt sitting up on bed with family at [address] Pt denies having to urinate at this time with a nod. Pt only answers with nodding head. Pt reaches finger out when I approached with O2 sat probe, Pt seems A&O but remains nonverbal. NSR on monitor- Other VSS.
--- NOTE | 2025-05-29 07:54 | PM.IMHP ---
History of Present Illness Date of Service: 05/29/25 Attending physician on admission: Derek George Chief Complaint: Difficulty speaking Pt is a 55-year-old female with a PMH significant for?COPD not on home O2, recent NSTEMI (04/2025) s/p stenting on Brilinta, and GERD who presents to the ED with?difficulty speaking since early this morning. Pt is currently unable to speak and hx is thus obtained from family who was at bedside. Pt was in her normal state of health last night when she went to bed between 21:00-22:00. Pt awoke at approximately 03:00 moaning and crying out. Was unable to form words but could follow commands. Had difficulty moving right upper extremity, but was able to walk to the stretcher when EMS arrived. No hx of similar episodes in the past. No hx of smoking. Of note, pt presented to the ED last week complaining of chest pain and was transferred to [facility] due to NSTEMI. Underwent cardiac catheterization and apparently had 1 stent placed though official records from [place] still pending. In the ED pt was mildly hypertensive at 153/74, vitals otherwise stable. Labs were significant for stable microcytic anemia of 10.8/34.5, TSH 5.51 with free T4 WNL at 0.92, and troponin 14.0. CTA of head negative for acute intracranial abnormality, though showing cerebral volume loss, intracranial atherosclerotic disease, and mild sequela chronic small-vessel ischemic disease. CTA of head/neck?showing wide patency of cervical vertebral arteries without significant stenosis in the neck. EKG demonstrated normal sinus rhythm without evidence of significant ST elevations or depressions. Pt was treated in the ED with aspirin. Pt is admitted to the hospital for treatment and further evaluation of continued expressive aphasia concerning for acute CVA vs TIA. Review of Systems Review of Systems: Yes Unobtainable due to mental status [facility] Medical History Allergic alveolitis Bronchitis SPARKLE (obstructive sleep apnea) Allergic rhinitis Asthma Pulmonary embolism Pulmonary cavitary lesion COPD (chronic obstructive pulmonary disease) Pulmonary cavitary lesion Asthma Family History Father Prostate cancer Surgical History H/O gastric sleeve History of partial hysterectomy History of surgery on wrist History of ankle surgery History of knee replacement Social History Household Members: Spouse and Family Housing: House Are you a primary care management coordinator to a significant other at home: Yes (mother) Do you presently have visiting nurse or other home services: Yes Alcohol intake: never Patient Tobacco Use Status: Never used Tobacco Smoked in Last 30 Days: No Use of substances other than those prescribed or required for medical reasons: No Advance Directives: No Advance Directives Information Provided: No Advance Directives Date on File: 12/26/21 service: No Current occupational status: disabled Meds Allergies Allergy/AdvReac Type Severity Reaction Status Date / Time latex (Latex) Allergy Mild UNKNOWN Verified 05/29/25 04:35 cats, pollen, mold Allergy Unknown Unknown Uncoded 05/29/25 04:35 Latex Allergy Unknown Unknown Uncoded 05/29/25 04:35 Home Medications ?Medication ?Instructions ?Recorded ?Confirmed ?Last Taken ?Type azelastine 137 mcg (0.1 %) nasal 2 spray intranasal BID 12/26/21 05/16/25 01/01/22 History spray calcium citrate 1 tab PO DAILY 12/26/21 05/16/25 12/26/21 History cholecalciferol (vitamin D3) 25 1 tab PO DAILY 12/26/21 05/16/25 01/01/22 History mcg (1,000 unit) tablet fluticasone propionate 230 1 puff inhalation BID 12/26/21 05/16/25 01/01/22 History mcg-salmeterol 21 mcg/actuation HFA inhaler (Advair HFA) hydroxyzine HCl 25 mg tablet 1 tab PO Q8H PRN itch 12/26/21 05/16/25 Unknown History loratadine 10 mg tablet 1 tab PO DAILY 12/26/21 05/16/25 01/01/22 History montelukast 10 mg tablet 1 tab PO BEDTIME 12/26/21 05/16/25 12/25/21 History omeprazole 40 mg capsule,delayed 1 cap PO DAILY@0630 12/26/21 05/16/25 01/01/22 History release folic acid 1 mg tablet 1 mg PO DAILY 07/24/22 05/16/25 Unknown History ibuprofen 800 mg tablet 800 mg PO TID PRN 05/06/23 05/16/25 Unknown History bupropion HCl 300 mg 24 hr tablet, 300 mg PO DAILY 12/22/23 05/16/25 Unknown History extended release naltrexone 50 mg tablet 50 mg PO DAILY 12/22/23 05/16/25 Unknown History aspirin 81 mg tablet,delayed 81 mg PO DAILY 05/29/25 Unknown History release atorvastatin 80 mg tablet 80 mg PO DAILY 05/29/25 Unknown History losartan 50 mg tablet 50 mg PO DAILY 05/29/25 Unknown History metoprolol succinate 25 mg 25 mg PO DAILY 05/29/25 Unknown History tablet,extended release 24 hr ticagrelor 90 mg tablet (Brilinta) 90 mg PO BID 05/29/25 Unknown History Physical Exam Vital Signs and Narrative: Vital Signs: Last Vital Signs Temp 98.0 F 05/29/25 04:34 Pulse 61 05/29/25 07:22 Resp 12 05/29/25 07:22 BP 153/74 H 05/29/25 07:22 Pulse Ox 97 05/29/25 07:22 O2 Del Method Room Air 05/29/25 07:22 BMI result Body Mass Index 29.8 General: Awake and alert. Following commands but unable to speak. In no acute distress Resp: CTA bilaterally CVS: S1, S2, RRR GI: +BS, NT, no distention Skin: Warm, dry Neuro: Follows basic commands but slow to respond especially with RUE. RUE weakness compared to left. Strength of lower extremities appears preserved and symmetric. Sensation to light touch intact bilaterally. Negative pronator drift. Unable to smile, stick out tongue, or form words. Can nod or shake head to yes/no questions though does so slowly. Extremities: No edema Psych: Appropriate affect Results Labs 05/29/25 04:31 05/29/25 04:31 Labs: Laboratory Results - last 24 hr 05/29/25 04:31 MCV 76.7 L MCH 24.0 L MCHC 31.3 RDW 18.2 H Plt Count 354 MPV 9.7 Immature Gran % (Auto) 0.8 H Neut % (Auto) 67.1 Lymph % (Auto) 20.1 [place] % (Auto) 7.8 Eos % (Auto) 3.6 Baso % (Auto) 0.6 Lymph # (Auto) 1.6 [place] # (Auto) 0.6 Eos # (Auto) 0.3 Baso # (Auto) 0.1 Abs Immat Gran (auto) 0.06 H Absolute Neuts (auto) 5.3 Absolute Nucleated RBC 0.000 Nucleated RBC % (auto) 0.0 PT 11.3 INR 1.0 Anion Gap 11 L Estim Creat Clear Calc 63.9 Estimated GFR > 60 Random Glucose 89 Calcium 8.9 Magnesium 1.9 Total Bilirubin 0.4 AST 33 H ALT 15 Alkaline Phosphatase 77 Troponin I High Sens 14.0 D Total Protein 6.8 Albumin 3.7 TSH 5.51 H Free T4 0.92 Ethyl Alcohol < 10 Assessment and Plan (1) Expressive aphasia: Status: Acute Plan Pt is a 55-year-old female with a PMH significant for?COPD not on home O2, recent NSTEMI (04/2025) s/p stenting on Brilinta, and GERD who presents to the ED with?difficulty speaking since early this morning. Pt is admitted to the hospital for treatment and further evaluation of continued expressive aphasia concerning for acute CVA vs TIA. Expressive aphasia LKWT 21:00; woke at 3:00 unable to speak, difficulty moving RUE Concerning for acute CVA CT of head showing cerebral volume loss and intracranial atherosclerotic disease but no acute intracranial abnormality; CTA of head/neck negative MRI of head/brain Continue aspirin, ticagrelor, statin Echocardiogram on 05/23 LVEF 35%, and with akinetic anteroseptal wall, apex, and apical lateral segments Neurology consult Lipid panel PT/OT and speech evaluation Monitor on telemetry CAD/hx of NSTEMI s/p stenting last week at [facility] aspirin, Brilinta Check [facility] records Subclinical hypothyroidism TSH elevated at 5.51 with free T4 WNL at 0.92 No indication for treatment at this time Follow up with PCP in 3-6 months for repeat labs COPD Not in acute exacerbation HTN Hold antihypertensives for now for permissive hypertension GERD Continue omerprazole Full Code Attending:?Dr. George DVT Prophylaxis: Lovenox Pt will require a hospitalization of at least two nights for treatment of?expressive aphasia concerning for acute CVA. pt require continuous cardiac monitoring, neurological checks, and additional workup including MRI and Neurology and PT/OT/ peech consultation. Quality Stroke Does the patient have a stroke diagnosis?: No VTE Prior VTE?: No VTE Risk Level:: Medical - moderate - high VTE Device Contraindication: Treatment Not Indicated VTE Drug Contraindication: N/A - Med Ordered
[2025-05-29 08:25] LABS: Cholesterol 172 mg/dL (<200); HDL Cholesterol 72 mg/dL (>40); Triglycerides 73 mg/dL (<150)
[2025-05-29 08:35] LABS: Venous Blood Gas Refer to POC result
[2025-05-29 08:38] LABS: VBG HCO3 23 mmol/L (22-26); VBG O2 % Saturation 78.0 %
--- NOTE | 2025-05-29 10:03 | PM.NEUROCN ---
History of Present Illness Data of Consult Service Date: 05/29/25 Primary Care Provider: Gt Prescott III, MD HPI Reason for consult: Difficulty speaking 55 years old woman with COPD and recent VT with stenting procedure done woke up when apparently could not speak and started crying. She was also noted to have some right-sided weakness and was brought to hospital. She was initially put on stroke protocol but because of significant time delay she was not a candidate for TNK. CTA was done that did not reveal any large vessel disease to intervene. She was also on blood thinners after recent stenting. Review of Systems Review of Systems: Recent cardiac stenting [facility] Past Medical History Medical History Allergic alveolitis Bronchitis SPARKLE (obstructive sleep apnea) Allergic rhinitis Asthma Pulmonary embolism Pulmonary cavitary lesion COPD (chronic obstructive pulmonary disease) Pulmonary cavitary lesion Asthma Family History Family History Father Prostate cancer Surgical History Surgical History H/O gastric sleeve History of partial hysterectomy History of surgery on wrist History of ankle surgery History of knee replacement Social History Social History Household Members: Spouse and Family Housing: House Are you a primary adult care provider to a significant other at home: Yes (mother) Do you presently have visiting nurse or other home services: Yes Alcohol intake: never Patient Tobacco Use Status: Never used Tobacco Smoked in Last 30 Days: No Use of substances other than those prescribed or required for medical reasons: No Advance Directives: No Advance Directives Information Provided: No Advance Directives Date on File: 12/26/21 service: No Current occupational status: disabled Meds Allergies Allergy/AdvReac Type Severity Reaction Status Date / Time latex (Latex) Allergy Mild UNKNOWN Verified 05/29/25 04:35 cats, pollen, mold Allergy Unknown Unknown Uncoded 05/29/25 04:35 Latex Allergy Unknown Unknown Uncoded 05/29/25 04:35 Active Medications: Current Medications Acetaminophen (Acetaminophen 325 Mg Tablet) 650 mg PO Q6H PRN PRN Reason: Pain, Mild 1-3,fever,headache Calcium Carbonate (Calcium Carbonate 750 Mg Tab.Chew) 750 mg PO Q4H PRN PRN Reason: Heartburn Enoxaparin Sodium (Enoxaparin Sodium 40 Mg/0.4 Ml Syringe) 40 mg SUBCUT Q24H [facility] Magnesium Hydroxide (Milk Of Magnesia 30 Ml Oral.Susp) 30 ml PO DAILY PRN PRN Reason: Constipation Melatonin (Melatonin 3 Mg Tablet) 6 mg PO BEDTIME PRN PRN Reason: Insomnia Ondansetron HCl (Ondansetron Hcl 4 Mg/2 Ml Vial) 4 mg IVPUSH Q8H PRN PRN Reason: Nausea and Vomiting Sodium Chloride (0.9 % Sodium Chloride Flush 3 Ml Syringe) 3 ml IVFLUSH QSHIFT [facility] Home Medications ?Medication ?Instructions ?Recorded ?Confirmed ?Last Taken ?Type azelastine 137 mcg (0.1 %) nasal 2 spray intranasal BID 12/26/21 05/16/25 01/01/22 History spray calcium citrate 1 tab PO DAILY 12/26/21 05/16/25 12/26/21 History cholecalciferol (vitamin D3) 25 1 tab PO DAILY 12/26/21 05/16/25 01/01/22 History mcg (1,000 unit) tablet fluticasone propionate 230 1 puff inhalation BID 12/26/21 05/16/25 01/01/22 History mcg-salmeterol 21 mcg/actuation HFA inhaler (Advair HFA) hydroxyzine HCl 25 mg tablet 1 tab PO Q8H PRN itch 12/26/21 05/16/25 Unknown History loratadine 10 mg tablet 1 tab PO DAILY 12/26/21 05/16/25 01/01/22 History montelukast 10 mg tablet 1 tab PO BEDTIME 12/26/21 05/16/25 12/25/21 History omeprazole 40 mg capsule,delayed 1 cap PO DAILY@0630 12/26/21 05/16/25 01/01/22 History release folic acid 1 mg tablet 1 mg PO DAILY 07/24/22 05/16/25 Unknown History ibuprofen 800 mg tablet 800 mg PO TID PRN 05/06/23 05/16/25 Unknown History bupropion HCl 300 mg 24 hr tablet, 300 mg PO DAILY 12/22/23 05/16/25 Unknown History extended release naltrexone 50 mg tablet 50 mg PO DAILY 12/22/23 05/16/25 Unknown History aspirin 81 mg tablet,delayed 81 mg PO DAILY 05/29/25 Unknown History release atorvastatin 80 mg tablet 80 mg PO DAILY 05/29/25 Unknown History losartan 50 mg tablet 50 mg PO DAILY 05/29/25 Unknown History metoprolol succinate 25 mg 25 mg PO DAILY 05/29/25 Unknown History tablet,extended release 24 hr ticagrelor 90 mg tablet (Brilinta) 90 mg PO BID 05/29/25 Unknown History Physical Exam Vital Signs: Vital Signs: Last Vital Signs Temp 98.2 F 05/29/25 08:30 Pulse 66 05/29/25 08:30 Resp 16 05/29/25 08:30 BP 137/60 05/29/25 08:30 Pulse Ox 97 05/29/25 08:30 O2 Del Method Room Air 05/29/25 08:30 BMI result Body Mass Index 29.8 Neuro: Other: She is alert and awake made eye contact. Spontaneity and fluency of speech were minimal. She could not tell me her last name. She was following one-step commands. When asked to repeat ?123 she did it in soft voice. She was unable to name simple objects such as food or a watch. There was mild right-sided facial flatness. Right plantars was extensor. Results Labs 05/29/25 04:31 05/29/25 04:31 Labs: Short CBC 05/29/25 Range/Units 04:31 WBC 7.9 (4.8-10.8) X10*3/uL Hgb 10.8 L (12.0-16.0) g/dl Hct 34.5 L (37.0-47.0) % Plt Count 354 (160-400) X10*3/uL BMP 05/29/25 04:31 Sodium 139 Potassium 4.3 Chloride 109 H Carbon Dioxide 23 BUN 22 H Creatinine 0.95 Calcium 8.9 Liver Function 05/29/25 Range/Units 04:31 Total Bilirubin 0.4 (0.0-1.0) mg/dL AST 33 H (5-31) U/L ALT 15 (0-31) U/L Alkaline Phosphatase 77 (39-117) U/L Albumin 3.7 (3.5-5.0) g/dL Head CT revealed minimal area of hypodensity in left frontal lobe while CTA did not reveal any large vessel disease. EKG revealed normal sinus rhythm Assessment and Plan (1) Expressive aphasia: Status: Acute 55 years old woman with coronary artery disease status post stenting few days ago came to hospital with new onset of difficulty speaking. On examination she has mostly motor aphasia with right extensor plantars are and minimal right-sided facial flatness. Likely etiology was a stroke or ischemic infarction though she unfortunately could not be treated with TNK or intra-arterial measures. Other possibility could include seizure disorder or encephalitis but that seems less likely. My recommendation is to obtain a noncontrast MRI of brain for definition and if that is negative also an EEG. Procedures Date of Service Date of Service: 05/29/25
--- NOTE | 2025-05-29 10:25 | PHA.MEDREC ---
Addendum entered by Ward Leggett PharmD 05/29/25 10:36: reviewed Original Note: Pharmacy Consult ? Medication Reconciliation Pharmacy has completed the medication reconciliation. Spoke with pt family (daughter) at bedside (pt was sleepy and not alert at the time of interaction) and they had given nurse paperwork from patient most recent medical visit from [facility] 05/26 and we were able to utilize to confirm med rec. Pt daughter asked pt if she took her medications yesterday and pt shook head yes.
--- NOTE | 2025-05-29 10:57 | PC.NURSE ---
Pt VS remain stable pt still communicates appropriately via nodding head still unable to speak although she appears to be trying when asked questions. NAD No complaints.
--- NOTE | 2025-05-29 12:50 | PC.NURSE ---
swallow screen done by Bryan WARREN at 8:35 today- pt passed.
[2025-05-29] MEDS: Albuterol/Iprat 2.5/0.5MG 3 ML AMPUL.NEB INHALE ×2 (12:57→20:12)
--- NOTE | 2025-05-29 14:22 | MHC.SL.SWA ---
Speech Pathologist Impression: Dysphagia unspecified in setting of oromotor deficits that interfere with consistent mobility Risk of Aspiration Due to: New onset dysarthria/aphonia Undetermined etiology - seizures vs encephalitis vs CVA Dysphasia Diet Status: NPO strict, oral swabs for moisture Liquid Consistency and Strategies for Safe Swallow: Liquid Intake Recommendation: NPO Liquid Intake Strategies: Solid Food Consistency: Dietary Recommendations: NPO Additional Modifications to Solid Foods: Oral Medication Intake: NPO Please contact the pharmacy regarding appropriate crushable or liquid drug formulations that are available whenever modified delivery is recommended. Compensatory Strategies and Precautions to be Taken for Safe Swallow: Supervision While Eating and Drinking for Safe Swallow: PO with WHITEPRINTING MACHINE OPERATOR Foods to Avoid: Swallowing Recommended Treatments: Recommendation for Speech: Inpatient Speech Therapy Comment: Oromotor functioning of lip, tongue, jaw and vocal cord mobility is inconsistent and weak. Pt unable to depress jaw fully and unable to elicit rotary chew volitionally. Tongue protrusion slow and graded. Pt unable to lateralize tongue to L or R upon initial attempts, slight lateralization observed with tactile stroke to outer cheek. Pt did not show routing reflex. Pt able to round lips but with slow and graded movement. Voicing is produced inconsistently, once when pt laughed (though quality was glottal), and once when pt stated 'yes' in response to RT, who arrived at the end of swallow evaluation to give pt treatment. Pt unable to elevated uvula on volitional 'ah' as aphonia occurred. Dyspraxia of OM movements evident at this time. Trials were minimal, one ice chip, which pt allowed to melt, showing adequate anterior control, no loss of fluid, and delayed trigger of swallow upon AP transit. Tongue weakness evident in transit phase, with poor laryngeal elevation. Pt coughed after 30 seconds post swallow with ice chip trial. Tsp of NTL presented, improved anterior to posterior transit timing and trigger of pharyngeal swallow observed. Pt tolerated a second tsp of NTL with similar timing and coordination, no overt s/s of aspiration. Pt took one cup sip of NTL, with anterior loss of fluid, delayed laryngeal elevation and cough upon completion of swallow. Pt coughed x2 with efficient clearance, as at this moment RT arrived and asked pt a question, to which pt answered 'yes' with voicing absent of wetness or strain. WHITEPRINTING MACHINE OPERATOR discontinued trials d/t variability of pt oropharyngeal coordination. WHITEPRINTING MACHINE OPERATOR provided education to pt and family at bedside. RN and MD [facility], repeat swallow evaluation daily, anticipate pt status will improve but risk for aspiration is elevated at this time. Frequency/Duration: Daily M-F Date Range for Service Req: Timeline to reassess: Crane Rigger Clinican/Clinical Fellow: No Supervisory Statement: I have reviewed and agree with the student/clinical fellow's documentation: N/A Speech Language Pathologist: Shannen Brito M.S., CCC-WHITEPRINTING MACHINE OPERATOR
--- NOTE | 2025-05-29 14:25 | MHC.SLORD ---
Speech Language Pathology Order Status: Cognitive/language evaluation to be conducted when appropriate. Pt currently aphonic, with good non-verbal communication through eye gaze, turning/shaking head, confirming yes or no given extra time to respond, and intermittent smiling/laughing. Pt currently NPO d/t significant variability in oropharyngeal efficiency. ROAD GANG SUPERVISOR following and treating daily, will assess pt for differential diagnosis of dysarthria and aphasia when indicated.
[2025-05-29 15:19] LABS: Appearance Urine Clear; Glucose Urine UA Negative (Negative); PH 6.5 (5.0-9.0); Specific Gravity - Urine >= 1.030 (1.005-1.025)
[2025-05-29 15:31] LABS: Cannabinoid Screen Urine Not Detected (Not Detect)
[2025-05-29] MEDS: Dextrose 5 % and Lactated Ring 1,000 ML 100 ML IVCONT (16:23)
--- NOTE | 2025-05-29 16:32 | HO.NURTONUR ---
Pt was seen here last week and then transferred to [facility] for an NSTEMI and cardiac stent placement. Today family called EMS around 0400 c/o pt unable to speak. LKWT was 2100. Pt is alert, and can answer questions by shaking head yes/no. Pt is also ambulatory without diff. No further neuro deficits noted. CT negative, scheduled for MRI this evening, MRI screening done. Speech performed swallow eval and failed; suspects apraxia. Hospitalist PA aware and all oral meds should be on hold. Family at bedside.
[2025-05-30] VITALS (9 sets, daily range): BP systolic 115–166; BP diastolic 60–86; PULSE 58–79; RESP 14–18; TEMP 36.2–36.7; O2SAT 92–99
[2025-05-30] MEDS: Dextrose 5 % and Lactated Ring 1,000 ML 100 ML IVCONT ×2 (01:42→13:43)
[2025-05-30] MEDS: Albuterol/Iprat 2.5/0.5MG 3 ML AMPUL.NEB INHALE ×4 (07:46→20:40)
[2025-05-30] MEDS: Fluticasone/Vilanterol 200/25 BLST.W.DEV 1 PUFF INHALE (07:47)
--- NOTE | 2025-05-30 07:54 | P.PNIM_ITS ---
Subjective Subjective Date of Service: 05/30/25 Interval History: Pt continues to has significant expressive aphasia Unable to speak fluently, difficulty word finding Can repeat 1 or 2 words in a whisper Able to follow commands MRI positive for acute infarct in the left frontal lobe as well as punctate infarcts in the right frontal lobe Review of Systems Pt reports no other acute medical complaints Physical Exam 2 Exam: Exam: General: Awake and alert. Following commands but unable to speak fluently. In no acute distress Resp: CTA bilaterally CVS: S1, S2, RRR GI: +BS, NT, no distention Skin: Warm, dry Neuro: Follows basic commands. Improved functionality of RUE. Strength of lower extremities preserved and symmetric. Sensation to light touch intact bilaterally. Negative pronator drift. Unable to smile, stick out tongue, or form words. Can nod or shake head to yes/no questions though does so slowly. Extremities: No edema Psych: Calm, cooperative Vital Signs: Vital Signs: Last Vital Signs Temp 97.3 F 05/30/25 07:21 Pulse 68 05/30/25 07:48 Resp 14 05/30/25 07:48 BP 166/86 H 05/30/25 07:21 Pulse Ox 99 05/30/25 07:21 O2 Del Method Room Air 05/30/25 07:21 BMI result Body Mass Index 29.8 Objective Data Active Medications Albuterol/Ipratropium (Albuterol/Iprat 2.5/0.5mg 3 Ml Ampul.Neb) 3 ml INHALE RQID [facility] Last Admin: 05/30/25 07:46 Dose: 3 ml Documented By: MARLYN Aspirin (Aspirin 300 Mg Supp.Rect) 300 mg NM DAILY [facility] Enoxaparin Sodium (Enoxaparin Sodium 40 Mg/0.4 Ml Syringe) 40 mg SUBCUT Q24H [facility] Last Admin: 05/29/25 10:04 Dose: 40 mg Documented By: JENNIFER Fluticasone/Vilanterol (Fluticasone/Vilanterol 200/25 Blst.W.Dev) 1 puff INHALE RDAILY [facility] Last Admin: 05/30/25 07:47 Dose: 1 puff Documented By: MARLYN Dextrose/Lactated Ringer's (D5lr) 1,000 mls @ 100 mls/hr IVCONT .Q10H [facility] Last Admin: 05/30/25 01:42 Dose: 100 mls/hr Documented By: DIMA Ipratropium [place] (Ipratropium [place] 0.5 Mg/2.5 Ml Solution) 0.5 mg INHALE QID PRN PRN Reason: for wheezing Naloxone HCl (Naloxone Hcl Nasal 4 Mg Ruffin) 4 mg NOSTRILALT Q2M PRN PRN Reason: Opioid Overdose Ondansetron HCl (Ondansetron Hcl 4 Mg/2 Ml Vial) 4 mg IVPUSH Q8H PRN PRN Reason: Nausea and Vomiting Sodium Chloride (0.9 % Sodium Chloride Flush 3 Ml Syringe) 3 ml IVFLUSH QSHIFT [facility] Last Admin: 05/30/25 01:43 Dose: Not Given Documented By: DIMA Non-Admin Reason: IV Running Labs 05/29/25 04:31 05/29/25 04:31 Labs: Laboratory Results - last 24 hr 05/29/25 05/29/25 05/29/25 04:31 08:32 15:10 VBG pH 7.43 VBG pCO2 35 VBG pO2 50 VBG HCO3 23 VBG O2 Saturation 78.0 VBG Base Excess 0.1 Triglycerides 73 Cholesterol 172 LDL Cholesterol, Calc 86 HDL Cholesterol 72 Urine Color Yellow Urine Appearance Clear Urine pH 6.5 Ur Specific Richardson >= 1.030 H Urine Protein Trace Urine Glucose (UA) Negative Urine Ketones Negative Urine Blood Negative Urine Nitrite Negative Ur Leukocyte Esterase Negative Urine Opiates Screen Not Detected Ur Buprenorphine Scrn Not Detected Ur Oxycodone Screen Not Detected Urine Methadone Screen Not Detected Urine Fentanyl Screen Not Detected Ur Barbiturates Screen Not Detected Ur Phencyclidine Scrn Not Detected Ur Amphetamines Screen Not Detected U Benzodiazepines Scrn Not Detected Urine Cocaine Screen Not Detected U Marijuana (THC) Screen Not Detected Assessment and Plan (1) Acute CVA (cerebrovascular accident): Status: Acute Plan Pt is a 55-year-old female with a PMH significant for?COPD not on home O2, recent NSTEMI (04/2025) s/p stenting on Brilinta, and GERD who presents to the ED with?difficulty speaking since early this morning. Pt is admitted to the hospital for treatment and further evaluation of continued expressive aphasia concerning for acute CVA vs TIA. Acute CVA with expressive aphasia LKWT 21:00; woke at 3:00 unable to speak, difficulty moving RUE CT of head showing cerebral volume loss and intracranial atherosclerotic disease but no acute intracranial abnormality; CTA of head/neck negative MRI of head/brain positive for acute infarct in left frontal lobe as well as punctate infarcts in right frontal lobe Continue aspirin, ticagrelor, statin Echocardiogram on 05/23 LVEF 35%, and with akinetic anteroseptal wall, apex, and apical lateral segments Neurology consult Lipid panel WNL OT recommends STR Monitor on telemetry Diet INSPECTOR FLOOR recommend Chopped/Advanced (NDD3) diet with Thin Liquids Pills whole in puree CAD/hx of NSTEMI s/p stenting last week at [facility] Contiune aspirin, Brilinta Check records Subclinical hypothyroidism TSH elevated at 5.51 with free T4 WNL at 0.92 No indication for treatment at this time Follow up with PCP in 3-6 months for repeat labs COPD Not in acute exacerbation HTN Hold antihypertensives for now for permissive hypertension GERD Continue omerprazole Full Code Attending:?Dr. George DVT Prophylaxis: Lovenox Pt will require continued hospitalization for monitoring of p.o. intake as diet is advanced. Pt will continue to work with speech and OT, and will likely be discharged tomorrow or the next day to STR. Quality Stroke Does the patient have a stroke diagnosis?: Yes Reason for No Anti-thrombotic by Day Two: N/A - Med Ordered VTE Prior VTE?: No VTE Risk Level:: Medical - moderate - high VTE Device Contraindication: Treatment Not Indicated VTE Drug Contraindication: N/A - Med Ordered
--- NOTE | 2025-05-30 11:43 | MHC.CM.PN ---
EMR REVIEWED, PT W/CVA, CM MET W/PT AND ELOISA GILLIAM AT BEDSIDE, PT GIVES CONSENT VIA NODDING FOR ELOISA TO ANSWER QUESTIONS D/T PT'S LACK OF SPEECH, PT ALSO NODS AND SHAKES HER HEAD NO AND NODS YES WELL. PT LIVES W/ELOISA AND JOON SON. PT USES A CANE AND HAS A WALKER AT HOME, HAS 12 NEUROLOGY DIRECTOR HRS PER [facility] HOWEVER PT/ELOISA UNABLE TO RECALL NAME OF AGENCY, PT ALSO HAS RN VISITS EVERY 2MOS WHICH IS LIKELY A NURSE CM. PT'S GOAL IS HOME W/SERVICES, FAMILY WILL TRANSPORT. PCP ON FILE VERIFIED AND PT REPORTS HER HCP IS ELOISA GILLIAM [phone], COPY TO BE REQUESTED FROM [facility].
--- NOTE | 2025-05-30 15:28 | MHC.SL.SWA ---
Speech Pathologist Impression: Risk of Aspiration Due to: Dysphasia Diet Status: Recommend UPGRADE diet from NPO to CHOPPED/ADVANCED (NDD3) with THIN liquids, pills whole in puree. Liquid Consistency and Strategies for Safe Swallow: Liquid Intake Recommendation: Thin Liquid Intake Strategies: Small Sips Solid Food Consistency: Dietary Recommendations: Chopped/Advanced (NDD3) Additional Modifications to Solid Foods: Oral Medication Intake: Whole with Puree Please contact the pharmacy regarding appropriate crushable or liquid drug formulations that are available whenever modified delivery is recommended. Compensatory Strategies and Precautions to be Taken for Safe Swallow: Sitting Upright (90 deg) Liquids from Cup Liquids from Straw Small Bites and Sips Alternate Liquids/Solids Supervision While Eating and Drinking for Safe Swallow: Tray Set Up Foods to Avoid: Too large pieces of food, tough, difficult to chew solids. Swallowing Recommended Treatments: Compens. Strategy Educat. Recommendation for Speech: Inpatient Speech Therapy Comment: Patient seen this morning for re-assessment of swallow. Patient had several family members present, was seated in chair beside bed, had just been seen by PT. Patient continued to be completely non-verbal today, had been trying to communicate by writing, but this had proved a challenge. Patient however was clearly understanding and processing all that was being said, responding very reliably to y/n questions. Oral motor was re-assessed: Patient continues with mild unilateral facial droop on right side, with mildly reduced labial ROM; Lingual ROM/Strength WFL today. Patient was asked to vocalize, was hesitant about this, but then produced clear voicing on ah. Patient given water by tsp and independent cup sip, with patient producing timely oral and pharyngeal phases of swallow, laryngeal elevation WFL and with evident swallow trigger (timely). Patient given bites of pudding, with patient feeding self a bite, again timely oral and pharyngeal phases of swallow. Patient given cracker in puree (crushed and in small pieces), on both textures she produced a slow munching pattern, appeared to not thoroughly chew, swallowing some pieces without completely masticating. However swallow was timely, no clinical signs of aspiration. Recommend UPGRADE diet from NPO to CHOPPED/ADVANCED (NDD3) with THIN liquids, pills whole in puree. Patient presents as able to be independent with meal, may need some assistance with tray set up. MD RD notified by secure text, RN in person. EMAIL MARKETER returned later in the day to adjust white board in room, at that time, patient had finished lunch, EMAIL MARKETER noted patient ate everything on plate, with family reporting she ate well. Frequency/Duration: Daily M-F Date Range for Service Req: Timeline to reassess: Instructor Weaving Clinican/Clinical Fellow: No Supervisory Statement: I have reviewed and agree with the student/clinical fellow's documentation: N/A Speech Language Pathologist: Filomena Alonso M.A., CCC-EMAIL MARKETER
--- NOTE | 2025-05-30 16:29 | MHC.STROKE ---
Met with patient in 472. Family at bedside. Plan of care discussed with patient/family Continues with expressive aphasia. Seen by Speech Stroke Education provided. Pamphlet given to both patient and family members All questions addressed. We discussed patient's medical history including recent STENT placement at . We reviewed medications. We discussed social hx (non smoker, non drinker). We also reviewed diet and exercise. Communication board offered to patient to ease with communication at this time. Stroke Resources provided to patient/family members.
[2025-05-31] VITALS (9 sets, daily range): BP systolic 133–163; BP diastolic 69–82; PULSE 62–86; RESP 16–18; TEMP 36.1–36.7; O2SAT 95–99
[2025-05-31] MEDS: Dextrose 5 % and Lactated Ring 1,000 ML 100 ML IVCONT (00:17)
[2025-05-31 07:23] LABS: Anion Gap 10 (12-20); Blood Urea Nitrogen 8 mg/dL (9-16); Calcium 8.7 mg/dL (8.4-10.2); Carbon Dioxide 25 mmol/L (22-29); Chloride 109 mmol/L (96-108); Creatinine Clr Calc Pharmacy 75.0; Estimated Glomerular Filt Rate > 60; Potassium 4.0 mmol/L (3.3-5.1); Sodium 140 mmol/L (135-145)
[2025-05-31] MEDS: Fluticasone/Vilanterol 200/25 BLST.W.DEV 1 PUFF INHALE (07:48)
[2025-05-31] MEDS: Albuterol/Iprat 2.5/0.5MG 3 ML AMPUL.NEB INHALE ×2 (07:48→20:46)
[2025-05-31] MEDS: buPROPion HCl XL 300 MG TAB.ER.24H PO (07:58)
[2025-05-31] MEDS: Metoprolol Succinate ER 25 MG TAB.ER.24H PO (07:58)
--- NOTE | 2025-05-31 09:29 | MHC.CM.PN ---
Addendum entered by Enedelia Adams RN 05/31/25 13:55: PER CONVERSATION WITH OT, PATIENT CAN DC HOME WITH [facility], FOLLOWED BY OUTPATIENT SERVICES (CURRENT RECOMMENDATIONS). [facility] MADE AWARE VIA [facility]. Original Note: PER REVIEW OF CHART, PLAN WILL BE DC HOME TODAY OR TOMORROW WITH RESUMPTION OF [facility]. CM FOLLOWING AND WILL UPDATE AGENCY FOLLOWING MEDICAL ROUNDS.
--- NOTE | 2025-05-31 14:13 | MHC.SLORD ---
Speech Language Pathology Order Status: Pt not seen by AIRCRAFT DESIGNER 05/31.
--- NOTE | 2025-05-31 19:12 | HO.PM.IMPN ---
Subjective Subjective Date of Service: 05/31/25 Interval History: Continues to have significant expressive aphasia, but able to now say a few words such as ?thank you? Improved function of right upper extremity, now almost back to baseline Asks to be placed on a pureed diet which she is better able to swallow Has been cleared by OT for discharge home with services Review of Systems Review of Systems: Yes all other systems are reviewed and are negative Physical Exam Exam: Exam: General: Awake and alert. Resting comfortably in recliner by bedside. In no acute distress Resp: CTA bilaterally CVS: S1, S2, RRR GI: +BS, NT, no distention Skin: Warm, dry Neuro: Follows commands. Improved functionality of RUE, now nearly back to baseline. Chef & Owner strength of right hand mildly decreased. Strength of lower extremities preserved and symmetric. Sensation to light touch intact bilaterally. Negative pronator drift. Now able to smile and stick out tongue; tongue with deviation to the right. Able to speak a few words slowly. Extremities: No edema Psych: Calm, cooperative. Appears more interactive and engaged today. Vital Signs: Vital Signs: Last Vital Signs Temp 97.3 F 05/31/25 15:06 Pulse 71 05/31/25 15:06 Resp 18 05/31/25 15:06 BP 133/73 05/31/25 15:06 Pulse Ox 96 05/31/25 15:06 O2 Del Method Room Air 05/31/25 15:06 BMI result Body Mass Index 29.8 Objective Data Active Medications Albuterol/Ipratropium (Albuterol/Iprat 2.5/0.5mg 3 Ml Ampul.Neb) 3 ml INHALE RQID [facility] Last Admin: 05/31/25 15:16 Dose: Not Given Documented By: MARLYN Non-Admin Reason: Patient Refused Aspirin (Aspirin 81 Mg Tab.Chew) 81 mg PO DAILY [facility] Last Admin: 05/31/25 07:58 Dose: 81 mg Documented By: FELIPE Atorvastatin Calcium (Atorvastatin Calcium 80 Mg Tablet) 80 mg PO DAILY [facility] Last Admin: 05/31/25 07:58 Dose: 80 mg Documented By: FELIPE Bupropion HCl (Bupropion Hcl Xl 300 Mg Tab.Er.24h) 300 mg PO DAILY [facility] Last Admin: 05/31/25 07:58 Dose: 300 mg Documented By: FELIPE Enoxaparin Sodium (Enoxaparin Sodium 40 Mg/0.4 Ml Syringe) 40 mg SUBCUT Q24H [facility] Last Admin: 05/31/25 07:57 Dose: 40 mg Documented By: FELIPE Fluticasone/Vilanterol (Fluticasone/Vilanterol 200/25 Blst.W.Dev) 1 puff INHALE RDAILY [facility] Last Admin: 05/31/25 07:48 Dose: 1 puff Documented By: MARLYN Folic Acid (Folic Acid 1 Mg Tablet) 1 mg PO DAILY [facility] Last Admin: 05/31/25 07:58 Dose: 1 mg Documented By: FELIPE Ipratropium Runn[place] (Ipratropium R[place] 0.5 Mg/2.5 Ml Solution) 0.5 mg INHALE QID PRN PRN Reason: for wheezing Metoprolol Succinate (Metoprolol Succinate Er 25 Mg Tab.Er.24h) 25 mg PO DAILY [facility]; Protocol Last Admin: 05/31/25 07:58 Dose: 25 mg Documented By: FELIPE Montelukast Sodium (Montelukast Sodium 10 Mg Tablet) 10 mg PO BEDTIME [facility] Last Admin: 05/30/25 21:34 Dose: 10 mg Documented By: MAURICIO Naloxone HCl (Naloxone Hcl Nasal 4 Mg [place]) 4 mg NOSTRILALT Q2M PRN PRN Reason: Opioid Overdose Naltrexone HCl (Naltrexone Hcl 50 Mg Tablet) 50 mg PO DAILY [facility] Last Admin: 05/31/25 07:58 Dose: 50 mg Documented By: FELIPE Omeprazole (Omeprazole 40 Mg Capsule.) 40 mg PO DAILY@0630 [facility] Last Admin: 05/31/25 06:10 Dose: 40 mg Documented By: MAURICOI Ondansetron HCl (Ondansetron Hcl 4 Mg/2 Ml Vial) 4 mg IVPUSH Q8H PRN PRN Reason: Nausea and Vomiting Sodium Chloride (0.9 % Sodium Chloride Flush 3 Ml Syringe) 3 ml IVFLUSH QSHIFT [facility] Last Admin: 05/31/25 17:36 Dose: Not Given Documented By: FELIPE Non-Admin Reason: Previously Administered Ticagrelor (Ticagrelor 90 Mg Tablet) 90 mg PO BID [facility] Last Admin: 05/31/25 07:58 Dose: 90 mg Documented By: FELIPE Labs 05/29/25 04:31 05/31/25 06:16 Labs: Laboratory Results - last 24 hr 05/31/25 06:16 Anion Gap 10 L Estim Creat Clear Calc 75.0 Estimated GFR > 60 Fasting Glucose 92 Calcium 8.7 Assessment and Plan (1) Acute CVA (cerebrovascular accident): Status: Acute (2) Expressive aphasia: Status: Acute Plan Pt is a 55-year-old female with a PMH significant for?COPD not on home O2, recent NSTEMI (04/2025) s/p stenting on Brilinta, and GERD who presents to the ED with?difficulty speaking since early this morning. Pt is admitted to the hospital for treatment and further evaluation of continued expressive aphasia concerning for acute CVA vs TIA. Acute CVA with expressive aphasia LKWT 21:00; woke at 3:00 unable to speak, difficulty moving RUE CT of head showing cerebral volume loss and intracranial atherosclerotic disease but no acute intracranial abnormality; CTA of head/neck negative MRI of head/brain positive for acute infarct in left frontal lobe as well as punctate infarcts in right frontal lobe Continue aspirin, ticagrelor, statin Echocardiogram on 05/23 LVEF 35%, and with akinetic anteroseptal wall, apex, and apical lateral segments Neurology consulted Lipid panel WNL Has been cleared by PT with no services; speech and OT recommend home with services Monitor on telemetry Diet CHANNEL MARKETING MANAGER recommend Chopped/Advanced (NDD3) diet with Thin Liquids and pills whole in puree Pt prefers pureed diet as it is easier to swallow CAD/hx of NSTEMI s/p stenting last week at [facility] aspirin, Brilinta Check [facility] records Subclinical hypothyroidism TSH elevated at 5.51 with free T4 WNL at 0.92 No indication for treatment at this time Follow up with PCP in 3-6 months for repeat labs COPD Not in acute exacerbation HTN Hold antihypertensives for now for permissive hypertension GERD Continue omerprazole Full Code Attending:?Dr. George DVT Prophylaxis: Lovenox Pt will require continued hospitalization for monitoring of p.o. intake as diet is advanced. Pt will continue to work with speech and OT, and will likely be discharged home with services tomorrow. Quality Stroke Does the patient have a stroke diagnosis?: Yes Reason for No Anti-thrombotic by Day Two: N/A - Med Ordered VTE Prior VTE?: No VTE Risk Level:: Medical - moderate - high VTE Device Contraindication: Treatment Not Indicated VTE Drug Contraindication: N/A - Med Ordered
[2025-05-31] MEDS: 0.9 % Sodium Chloride Flush 3 ML SYRINGE IVFLUSH (21:18)
[2025-06-01 04:00] VITALS: BP 151/72; PULSE 62; RESP 16; TEMP 36.3; O2SAT 98
[2025-06-01 07:13] LABS: Anion Gap 11 (12-20); Blood Urea Nitrogen 9 mg/dL (9-16); Calcium 9.0 mg/dL (8.4-10.2); Carbon Dioxide 25 mmol/L (22-29); Chloride 109 mmol/L (96-108); Creatinine Clr Calc Pharmacy 76.8; Estimated Glomerular Filt Rate > 60; Potassium 4.2 mmol/L (3.3-5.1); Sodium 141 mmol/L (135-145)
[2025-06-01 07:40] VITALS: BP 143/77; PULSE 88; RESP 18; TEMP 36.2; O2SAT 97
[2025-06-01] MEDS: Fluticasone/Vilanterol 200/25 BLST.W.DEV 1 PUFF INHALE (08:17)
[2025-06-01] MEDS: Albuterol/Iprat 2.5/0.5MG 3 ML AMPUL.NEB INHALE (08:17)
[2025-06-01 08:20] VITALS: PULSE 88; RESP 16
[2025-06-01] MEDS: Metoprolol Succinate ER 25 MG TAB.ER.24H PO (09:27)
[2025-06-01] MEDS: buPROPion HCl XL 300 MG TAB.ER.24H PO (09:27)
--- NOTE | 2025-06-01 10:42 | MHC.CM.PN ---
Plan is home today with [facility] services. Family to transport at time of DC. RN aware of plan.
[2025-06-01 11:38] VITALS: BP 149/77; PULSE 63; RESP 20; TEMP 36.1; O2SAT 98
--- NOTE | 2025-06-01 14:05 | PM.DS ---
DS: Providers Provider Date of Service: 06/01/25 Date of admission: 05/29/25 07:54 Date of discharge: 06/01/25 Primary care physician: Gt Prescott III, MD Consults: 05/29/25 08:51 Consult to Neurology Routine Consulting Provider: [facility] Reason for consultation: Continued expressive aphasia, ?CVA DS: Diagnosis Discharge Diagnosis (1) Acute CVA (cerebrovascular accident): Status: Acute (2) Expressive aphasia: Status: Acute DS: Summary Hospital Course Hospital Course: From admission HPI: Date of Service: 05/29/25 Attending physician on admission: Derek George Chief Complaint: Difficulty speaking Pt is a 55-year-old female with a PMH significant for?COPD not on home O2, recent NSTEMI (04/2025) s/p stenting on Brilinta, and GERD who presents to the ED with?difficulty speaking since early this morning. Pt is currently unable to speak and hx is thus obtained from family who was at bedside. Pt was in her normal state of health last night when she went to bed between 21:00-22:00. Pt awoke at approximately 03:00 moaning and crying out. Was unable to form words but could follow commands. Had difficulty moving right upper extremity, but was able to walk to the stretcher when EMS arrived. No hx of similar episodes in the past. No hx of smoking. Of note, pt presented to the ED last week complaining of chest pain and was transferred to [facility] due to NSTEMI. Underwent cardiac catheterization and apparently had 1 stent placed though official records from [place] still pending. In the ED pt was mildly hypertensive at 153/74, vitals otherwise stable. Labs were significant for stable microcytic anemia of 10.8/34.5, TSH 5.51 with free T4 WNL at 0.92, and troponin 14.0. CTA of head negative for acute intracranial abnormality, though showing cerebral volume loss, intracranial atherosclerotic disease, and mild sequela chronic small-vessel ischemic disease. CTA of head/neck?showing wide patency of cervical vertebral arteries without significant stenosis in the neck. EKG demonstrated normal sinus rhythm without evidence of significant ST elevations or depressions. Pt was treated in the ED with aspirin. Pt is admitted to the hospital for treatment and further evaluation of continued expressive aphasia concerning for acute CVA vs TIA. Hospital course: Pt was admitted to the hospital for persistent expressive aphasia in the setting of likely acute CVA vs TIA. Pt was seen and evaluated by Neurology and underwent an MRI which showed an acute infarct in the left frontal lobe as well as punctate infarcts in the right frontal lobe. She failed her initial WEAPONS SYSTEM INSTRUMENT MECHANIC evaluatation and was made NPO and was set to undergo PPN. However, patient's swallowing improved and diet was advanced to.Chopped/Advanced (NDD3) with thin liquids and pills whole in puree. Pt, however preferred a pureed diet she reported it was easier for her to swallow. Pt was also seen and evaluated by PT/OT who recommended home with services. Pt never experienced any significant lower extremity weakness, and was able to ambulate throughout hospital stay. Right upper extremity weakness and difficulty grasping objects improved during stay, and was almost back to baseline at time of discharge. Speech with minimal improvement, though pt was able to speak 1 or 2 words at a time, though very slowly and quietly. She will be discharged home without medication changes as she is already on dual antiplatelet therapy with aspirin and Brilinta, as well as atorvastatin 80 mg daily. Additional details of hospital stay as indicated below. Acute CVA with expressive aphasia LKWT 21:00; woke at 3:00 unable to speak, difficulty moving RUE CT of head showing cerebral volume loss and intracranial atherosclerotic disease but no acute intracranial abnormality; CTA of head/neck negative MRI of head/brain positive for acute infarct in left frontal lobe as well as punctate infarcts in right frontal lobe Continue aspirin, ticagrelor, statin Echocardiogram on 05/23 LVEF 35%, and with akinetic anteroseptal wall, apex, and apical lateral segments Neurology consulted Lipid panel WNL Has been cleared by PT with no services; speech and OT recommend home with services Monitor on telemetry Diet WEAPONS SYSTEM INSTRUMENT MECHANIC recommend Chopped/Advanced (NDD3) diet with Thin Liquids and pills whole in puree Pt prefers pureed diet as it is easier to swallow CAD/hx of NSTEMI s/p stenting last week at [facility] aspirin, Brilinta Check [facility] records Subclinical hypothyroidism TSH elevated at 5.51 with free T4 WNL at 0.92 No indication for treatment at this time Follow up with PCP in 3-6 months for repeat labs COPD Not in acute exacerbation HTN Hold antihypertensives for now for permissive hypertension GERD Continue omerprazole Time Attestation Discharge Coordination Time (in mins): 38 Quality: Safe Use of Opioids Does Pt have an Active Cancer Diagnosis on the Problem List?: No Quality: Stroke Does the patient have a stroke diagnosis?: Yes Reason for No Anti-thrombotic at DC: N/A - Med Ordered Reason for No Anticoagulant at DC: N/A - Med Ordered Reason Not Initiating IV-Tpa: Contraindicated (Outside of tNK therapeutic window; recent NM) Reason for No Anti-thrombotic by Day Two: N/A - Med Ordered Reason for No Statin at DC: N/A - Med Ordered Physical Exam Exam: Exam: General: Awake and alert. Resting comfortably in recliner by bedside. In no acute distress Resp: CTA bilaterally CVS: S1, S2, RRR GI: +BS, NT, no distention Skin: Warm, dry Neuro: Follows commands. Improved functionality of RUE, now nearly back to baseline. Medical Equipment Repair Technician strength of right hand nearly symmetric with left. Strength of lower extremities preserved and symmetric. Sensation to light touch intact bilaterally. Negative pronator drift. Now able to smile and stick out tongue; tongue with deviation to the right. Able to speak a few words slowly. Extremities: No edema Psych: Calm, cooperative. Appears interactive and engaged. Vital Signs: Vital Signs: Last Vital Signs Temp 96.9 F 06/01/25 11:38 Pulse 63 06/01/25 11:38 Resp 20 06/01/25 11:38 BP 149/77 H 06/01/25 11:38 Pulse Ox 98 06/01/25 11:38 O2 Del Method Room Air 06/01/25 11:38 BMI result Body Mass Index 29.8 DS: Data Data Completed and Pending Labs on day of discharge: Laboratory Results - last 24 hr 06/01/25 06:33 Hold Purple Top SEE NOTE Sodium 141 Potassium 4.2 Chloride 109 H Carbon Dioxide 25 Anion Gap 11 L BUN 9 Creatinine 0.79 Estim Creat Clear Calc 76.8 Estimated GFR > 60 Fasting Glucose 84 Calcium 9.0 Discharge Plan Discharge Anticipated Discharge Date/Time: 06/01/25 13:44 Patient Disposition: Home Health Service Discharge Diagnosis: Acute CVA Referrals: [facility] [Outside] - 1 Week Gt Prescott III, MD [Primary Care Provider, Medical] - 1 Week Mac Mcclain MD [Physician, Neurology] - 1 Week Referral Note: F/U for acute CVA with residual expressive aphasia Discharge Medications: Continued Combivent Respimat 20-100 mcg/actuation mist 1 puff inhalation QID 30 Days Qty: 4 4RF ipratropium bromide 0.02 % solution 2.5 ml inhalation QID PRN (Reason: for wheezing) Qty: 125 3RF omeprazole 40 mg capsule,delayed release(DR/EC) 40 mg PO DAILY@0630 montelukast 10 mg tablet 10 mg PO BEDTIME hydroxyzine HCl 25 mg tablet 1 tab PO Q8H PRN (Reason: itch) calcium citrate 200 mg (950 mg) tablet 200 mg PO DAILY fluticasone propion-salmeterol [Advair HFA] 230-21 mcg/actuation HFA aerosol inhaler 1 puff inhalation BID cholecalciferol (vitamin D3) 25 mcg (1,000 unit) tablet 25 mcg PO DAILY losartan 50 mg tablet 50 mg PO DAILY atorvastatin 80 mg tablet 80 mg PO DAILY aspirin 81 mg tablet,delayed release (DR/EC) 81 mg PO DAILY metoprolol succinate 25 mg tablet extended release 24 hr 25 mg PO DAILY ticagrelor [Brilinta] 90 mg tablet 90 mg PO BID naloxone 4 mg/actuation spray,non-aerosol 4 mg intranasal Q2M PRN (Reason: Opioid Overdose) folic acid 1 mg tablet 1 mg PO DAILY bupropion HCl 300 mg tablet extended release 24 hr 300 mg PO DAILY naltrexone 50 mg tablet 50 mg PO DAILY Discharge Orders: Discharge Order (Routine); Ordered 06/01/25 Ordered By: Tara Hahn Activity on Discharge: As tolerated Stand Alone Forms: Patient Portal Discharge page Print Language: Icelandic Care Plan Goals: See below Health Concerns: Acute cerebrovascular accident Expressive aphasia Right-sided weakness CAD Plan of Treatment: You were admitted to the hospital for expressive aphasia and upper right arm weakness. You were seen and evaluated by Neurology and underwent an MRI which found an acute stroke in the left and right frontal lobes. You were seen and evaluated by speech who made you NPO after you failed your initial swallow evaluation, but soon upgraded to chopped/advanced diet with regular thin liquids and pills in puree. However, he preferred to have your food pureed which he reported was easier to swallow. You were also seen and evaluated by Physical therapy and Occupational therapy who recommended being sent home with services. You did show some improvement while in the hospital, including almost complete resolution of upper right arm weakness. You also had some improvement to your speech and were able to speak a few words at a time upon discharge. You will be discharged home with services for both VNA, PT/OT, and speech therapy. -- continue previous prescriptions of aspirin 81 mg daily, atorvastatin 80 mg daily, and Brilinta 90 mg twice a day -- continue a pureed diet, regular liquids, and pills in puree; speech will continue to evaluate your ability to swallow as you undergo therapy -- you will have home services for nursing, physical therapy, occupational therapy, and speech -- follow up with Dr. Mcclain in Neurology in 1-2 weeks for acute stroke follow up -- follow up with both PCP and Cardiology in 1-2 weeks -- continue all of your other home medications Assessment: See discharge summary
--- NOTE | 2025-06-01 14:23 | P.F2F_ITS ---
Service Date Service Date: 06/01/25 Encounter Date of encounter: 06/01/25 Reasons for Services Signs and symptoms assessed: Expressive aphasia. Recent acute CVA. Right upper extremity weakness. Reason for physical therapy: home safety and mobility and ADL training Reason for occupational therapy: home safety and mobility, therapeutic exercises and ADL training Reason for speech therapy: swallowing impairment and speech impairment Homebound: Leaving the home is medically contraindicated at this time without the asist of a device and/or another person due th the listed conditions above and below. Reason homebound: unsteady gait / fall risk and weakness related to hospital stay Certification: Based on the above findings, I certify that this patient is confined to the home and needs intermittent nursing home care, physical therapy and/or speech therapy, or continues to need occupational therapy. The patient is under my care, and I have initiated the establishment of the plan of care. The patient will be followed by a physician who will periodically review the plan of care. Time Spent With Patient Time: Total time managing care of this patient today ____ minutes.
[2025-06-01] MEDS: 0.9 % Sodium Chloride Flush 3 ML SYRINGE IVFLUSH (14:25)
== END 2025-06-01 14:56 | disposition home health service (06) | DRG 45 ==
LOC: HO.ED 07:48 → HO.EDOVER 08:14 → HO.IMC 16:29
PROVIDERS: Admitting Provider Student in an Organized Health Care Education/Training Program; Emergency Provider Emergency Medicine; PCP Internal Medicine; Visit Provider Student in an Organized Health Care Education/Training Program
DX: I63.9 Cerebral infarction, unspecified (principal); R47.01 Aphasia; E03.8 Other specified hypothyroidism; I25.10 Atherosclerotic heart disease of native coronary artery without angina pectoris; G83.21 Monoplegia of upper limb affecting right dominant side; J44.9 Chronic obstructive pulmonary disease, unspecified; R29.706 NIHSS score 6; I10 Essential (primary) hypertension; I25.2 Old myocardial infarction; Z79.51 Long term (current) use of inhaled steroids; Z79.82 Long term (current) use of aspirin; Z79.899 Other long term (current) drug therapy
CPT/HCPCS: 36415; 70450; 70496; 70498; 70551; 80048; 80053; 80061; 80307; 81003; 82803; 83735; 84439; 84443; 84484; 85025; 85610; 92526; 92610; 93005; 94640; 97116; 97162; 97166; 97535; 99285; J1650; Q9967

== ENCOUNTER → 2025-05-29 04:18 | Outpatient (BNV) | payer OTHER, SELFPAY | PROVIDERS: Emergency Provider Emergency Medicine; PCP Internal Medicine; Visit Provider Radiology Diagnostic Radiology | DX: G31.89 Other specified degenerative diseases of nervous system (principal); I67.2 Cerebral atherosclerosis; I69.314 Frontal lobe and executive function deficit following cerebral infarction; R47.9 Unspecified speech disturbances; I67.82 Cerebral ischemia | CPT/HCPCS: 70450; 70496; 70498; 70551 ==

== ENCOUNTER → 2025-05-29 04:18 | Outpatient (BNV) | payer OTHER, SELFPAY | PROVIDERS: Admitting Provider Student in an Organized Health Care Education/Training Program; Emergency Provider Emergency Medicine; PCP Internal Medicine; Visit Provider Internal Medicine Cardiovascular Disease | DX: R41.82 Altered mental status, unspecified (principal) | CPT/HCPCS: 93010 ==

== ENCOUNTER → 2025-05-29 07:54 | Outpatient (BNV) | payer OTHER, SELFPAY | PROVIDERS: Admitting Provider Student in an Organized Health Care Education/Training Program; Emergency Provider Emergency Medicine; PCP Internal Medicine; Visit Provider Student in an Organized Health Care Education/Training Program | DX: I63.9 Cerebral infarction, unspecified (principal) | CPT/HCPCS: 99223; 99232; 99233 ==

== ENCOUNTER → 2025-05-29 07:54 | Outpatient (BNV) | payer OTHER, SELFPAY | PROVIDERS: Admitting Provider Student in an Organized Health Care Education/Training Program; Emergency Provider Emergency Medicine; PCP Internal Medicine; Visit Provider Psychiatry & Neurology Neurology | DX: R47.01 Aphasia (principal) | CPT/HCPCS: 99222 ==

== ENCOUNTER 2025-06-07 14:37 | Outpatient (AMB) | payer OTHER, SELFPAY ==
--- NOTE | 2025-06-07 14:42 | A.OFFVIS_ITS ---
Intake Visit Reasons: f/u hosp d/c for stroke seen in consult 05/29 Allergies latex (Latex) Allergy (Mild, Verified 05/29/25 04:35) UNKNOWN cats, pollen, mold Allergy (Unknown, Uncoded 05/29/25 04:35) Unknown Latex Allergy (Unknown, Uncoded 05/29/25 04:35) Unknown HPI Comments Details: The patient is a 55-year-old female presenting with expressive aphasia following a left frontal ischemic stroke. She experienced a moderate-sized ischemic infarction affecting the left frontal lobe, attributed to a cardioembolic source. This event has resulted in significant language production difficulties, characterized by diminished spontaneity and fluency, though she can state her name and repeat simple words. Her comprehension remains relatively intact, noted to be at a 10th-grade level. The patient denies any recent large muscle issues but reports occasional dizziness and breathlessness upon standing. Her medical history includes a cardiac stenting procedure, for which she is taking Brilinta along with aspirin as part of her prescribed cardiology protocol to prevent further thromboembolic events. The patient has not formally pursued speech therapy, though advised, but engages in reading aloud to improve her language abilities. [facility] Medical History Allergic alveolitis Bronchitis SPARKLE (obstructive sleep apnea) Allergic rhinitis Asthma Pulmonary embolism Pulmonary cavitary lesion COPD (chronic obstructive pulmonary disease) Pulmonary cavitary lesion Asthma Surgical History H/O gastric sleeve History of partial hysterectomy History of surgery on wrist History of ankle surgery History of knee replacement Family History Father Prostate cancer Social History Household Members: Spouse and Children Caregiver staying overnight: No Housing: House Are you a primary after school caregiver to a significant other at home: Yes (mother) Do you presently have visiting nurse or other home services: No Alcohol intake: never Patient Tobacco Use Status: Never used Tobacco Advance Directives Date on File: 12/26/21 service: No Current occupational status: disabled Female Reproductive History Menstrual Age of Menarche: 7 Review of Systems Const Details: - Neurological: Reports difficulty with spontaneous speech and fluency, comprehension at 10th-grade level; denies new large muscle issues. - Cardiovascular: Denies large muscle involvement; reports dizziness and breathlessness upon standing. - Hematologic: Reports taking Brilinta and aspirin. Physical Exam Neuro Other: Mental Status: Alert and awake with significantly reduced spontaneity and fluency of speech. She was able to see her 1st and last name and repeat simple words such as ?1, 2, and 3?. Cranial Nerves: CN II: Visual abrams full to confrontation, visual acuity intact. CN III, IV, : Pupils equal, round, reactive to light and accommodation. Extraocular movements are normal. CN V: Facial sensation is normal. CN VII: Facial movements symmetrical. CN VIII: Hearing intact to bedside conversation is normal. CN IX, X: Palate elevates symmetrically. CN XI: Shoulder shrug and head turn symmetrical. CN XII: Tongue midline without atrophy or fasciculations. Coordination: [id number]-sp-[id number] and [id number] testing normal. No dysmetria. Gait and Station: No obvious gait abnormality. No ataxia or instability. Extrapyramidal: Full facial expressions and blinking. No rigidity. Movements are appropriate with no tremor or abnormality. Speech: Normal; no dysarthria or tremor. Assessment & Plan Assessment & Plan (1) Expressive aphasia: Comment: MRI brain WO at [facility] [place] 2025: Left frontal cortical mod sized embolic looking infarct CTA brain and neck at [facility] [place] in May 2025: [place] Code(s): R47.01 - Aphasia Category: Medical (2) Embolic cerebral infarction: Code(s): I63.40 - Cerebral infarction due to embolism of unspecified cerebral artery Category: Medical Qualifiers: Laterality of affected vessel: left Precerebral and cerebral artery: middle cerebral artery Qualified Code(s): I63.412 - Cerebral infarction due to embolism of left middle cerebral artery Plan 55 years old woman with cardioembolic moderate size left frontal cerebral ischemic infarction resulting in moderate expressive aphasia. She is able to say her name and repeat simple words but spontaneity and fluency of speech or significantly diminished. Comprehension is intact. She is advised to continue with speech therapy and tried to read loudly as an exercise. As far as prevention of further stroke is concerned, CTA did not reveal any large vessel lesion. As per cardiology protocol, she is taking Brilinta and aspirin. Orders: Referrals Speech and Hearing Referral R47.01 - Aphasia Coding Level of Care Code Est Pt Level 4 (15093) Diagnoses Expressive aphasia R47.01 Cerebral infarction due to embolism of left middle cerebral artery I63.412 Laterality of affected vessel: left Precerebral and cerebral artery: middle cerebral artery
--- OUTSIDE RECORDS SUMMARY | 2025-06-07 18:19 | XMS_ITS | Clinical Summary ---
Author Organization [facility] Address [address] [place] [address] Care Team Providers Care Supervisor Hard Candy Name Role Phone Gt Prescott MD Primary Care Provider [phone] Allergies Active Allergy Reactions Criticality Noted Date [...] 210 MG/1.91ML SOSY 0 05/12/2023 Active Tiotropium [place] Monohydrate (Spiriva Respimat) 1.25 MCG/ACT AERS Inhale [...] age to complete this topic Care Teams Supervisor Hard Candy Relationship Specialty Start Date End Date Gt Prescott MD PCP - General Internal Medicine 05/28/23
--- OUTSIDE RECORDS SUMMARY | 2025-06-07 18:19 | XMS_ITS | Encounter Summary ---
Author Organization [employer] Address [address] [facility] [address] [place] [address] Care Team Providers Care Pan Shaker Name Role Phone Unavailable Primary Care Provider Unavailabl e Reason for Visit * Reason Onset Date Comments Med Refill 03/11/2023 Encounter Details Date Type Department Care Team (Late st Contact Info) Description 03/11/2023 Telephone [facility] ADULT DENTAL [address], [place] [phone] Alexus Haney, DDS [address], [place] [phone] Med Refill Social History Tobacco Use Types [...]
--- OUTSIDE RECORDS SUMMARY | 2025-06-07 18:19 | XMS_ITS | Encounter Summary ---
Author Organization [employer] Address [address] [facility] [address]t [place] [address] Care Team Providers Care Sleeve Setter Lockstitch Name Role Phone Unavailable Primary Care Provider Unavailabl e Reason for Visit * Reason Comments Med Refill Encounter Details Date Type Department Care Team (Late st Contact Info) Description 07/22/2023 Refill [facility] ADULT DENTAL [address] [place], [place] [phone] Miguel Ángel Chong DMD [address] [place], [place] [phone] Encounter for dental examination Social History Tobacco [...]
--- OUTSIDE RECORDS SUMMARY | 2025-06-07 18:19 | XMS_ITS | Encounter Summary ---
Author Organization [employer] Address [address] [facility] [address] [place] [address] Care Team Providers Care Child Care Sitter Name Role Phone Unavailable Primary Care Provider Unavailabl e Reason for Visit * Reason Comments Med Refill Encounter Details Date Type Department Care Team (Late st Contact Info) Description 08/23/2023 Refill [facility] ADULT DENTAL [address] [place], [place] [phone] Miguel Ángel Chong, AMOS [address] [place], [place] [phone] Encounter for dental examination Social History Tobacco [...]
--- OUTSIDE RECORDS SUMMARY | 2025-06-07 18:19 | XMS_ITS | Encounter Summary ---
Author Organization [facility] Address [address] [facility] [address] [place] [address] Care Team Providers Care Front Tender Name Role Phone Unavailable Primary Care Provider Unavailabl e Reason for Visit * Reason Comments Med Refill Encounter Details Date Type Department Care Team (Late st Contact Info) Description 01/24/2025 Refill [facility] ADULT DENTAL [address] [place], [place] [phone] Miguel Ángel Chong DMD [address] [place], [place] [phone] Encounter for dental examination Social History Tobacco [...]
--- OUTSIDE RECORDS SUMMARY | 2025-06-07 18:19 | XMS_ITS | Encounter Summary ---
Author Organization [employer] Address [address] [facility] [address] [place] [address] Care Team Providers Care Toy Designer Name Role Phone Unavailable Primary Care Provider Unavailabl e Encounter Details Date Type Department Care Team (Late st Contact Info) Description 04/28/2023 Abstract [facility] ADULT DENTAL [address] [place], [place] [phone] Alexus Haney DDS [address] [place], [place] [phone] Social History Tobacco Use Types Packs/Day Years [...]
--- OUTSIDE RECORDS SUMMARY | 2025-06-07 18:19 | XMS_ITS | Encounter Summary ---
Author Organization [employer] Address [address] [facility] [address] [place] [address] Care Team Providers Care Chick Room Supervisor Name Role Phone Unavailable Primary Care Provider Unavailabl e Reason for Visit * Reason Comments Med Refill Encounter Details Date Type Department Care Team (Late st Contact Info) Description 06/24/2023 Refill [facility] ADULT DENTAL [address] [place], [place] [phone] Alexus Haney, DDS [address] [place], [place] [phone] Encounter for dental examination Social History Tobacco [...]
--- OUTSIDE RECORDS SUMMARY | 2025-06-07 18:19 | XMS_ITS | Encounter Summary ---
Author Organization [employer] Address [address] [facility] [address] [place] [address] Care Team Providers Care Locator Name Role Phone Unavailable Primary Care Provider Unavailabl e Reason for Visit * Reason Comments Med Refill Encounter Details Date Type Department Care Team (Late st Contact Info) Description 09/24/2023 Refill [facility] ADULT DENTAL [address] [place], [place] [phone] Alexus Haney, DDS [address] [place], [place] [phone] Encounter for dental examination Social History Tobacco [...]
--- OUTSIDE RECORDS SUMMARY | 2025-06-07 18:19 | XMS_ITS | Encounter Summary ---
Author Organization [employer] Address [address] [facility] [address] [place] [address] Care Team Providers Care Senior Oracle Soa Developer Name Role Phone Unavailable Primary Care Provider Unavailabl e Encounter Details Date Type Department Care Team (Late st Contact Info) Description 04/28/2023 Abstract [facility] ADULT DENTAL [address] [place], [place] [phone] Alexus Haney DDS [address] [place], [place] [phone] Social History Tobacco Use Types Packs/Day Years [...]
--- OUTSIDE RECORDS SUMMARY | 2025-06-07 18:19 | XMS_ITS | Encounter Summary ---
Author Organization [employer] Address [address] [facility] [address] [place] [address] Care Team Providers Care Computational Geneticist Name Role Phone Unavailable Primary Care Provider Unavailabl e Reason for Visit * Reason Comments Med Refill Encounter Details Date Type Department Care Team (Late st Contact Info) Description 12/20/2024 Refill [facility] ADULT DENTAL [address] [place], [place] [phone] Alexus Haney DDS [address] [place], [place] [phone] Social History Tobacco Use Types Packs/Day Years [...]
--- OUTSIDE RECORDS SUMMARY | 2025-06-07 18:19 | XMS_ITS | Encounter Summary ---
Author Organization [employer] Address [address] [facility] [address] [place] [address] Care Team Providers Care Boat Engine Mechanic Name Role Phone Unavailable Primary Care Provider Unavailabl e Reason for Visit * Reason Onset Date Comments crown fell off 04/06/2023 Encounter Details Date Type Department Care Team (Late st Contact Info) Description 04/06/[address] [facility] ADULT DENTAL [address] [place], [place] [phone] Alexus Haney DDS [address] [place], [place] [phone] crown fell off Social History Tobacco Use [...]
--- OUTSIDE RECORDS SUMMARY | 2025-06-07 18:19 | XMS_ITS | Encounter Summary ---
Author Organization [employer] Address [address] [facility] [address] [place] [address] Care Team Providers Care Tanning Wheel Operator Name Role Phone Unavailable Primary Care Provider Unavailabl e Reason for Visit * Reason Comments Med Refill Encounter Details Date Type Department Care Team (Late st Contact Info) Description 10/21/2023 Refill [facility] ADULT DENTAL [address] [place], [place] [phone] Miguel Ángel Chong DMD [address] [place], [place] [phone] Encounter for dental examination Social History Tobacco [...]
--- OUTSIDE RECORDS SUMMARY | 2025-06-07 18:20 | XMS_ITS | Encounter Summary ---
Author Organization [employer] Address [address] [facility] [address] [place] [address] Care Team Providers Care Earth Moving Technician Name Role Phone Unavailable Primary Care [...]
--- OUTSIDE RECORDS SUMMARY | 2025-06-07 18:20 | XMS_ITS | Data Portability ---
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 [...] causing mild flattening of the dural sac, yrrp-gm-iodpbjq e right and mild left-sided foraminal stenosis. [...] booked after insurance approval. 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 [...] causing mild flattening of the dural sac, jbdt-qn-noooidk e right and mild left-sided foraminal stenosis. [...] booked after insurance approval. 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 [...] By Organization Details Last Modified Time 08/11/2024 [id number] She was advised to continue activities as tolerated. [email or web address] Not available 08/11/2024 16:59:30 12/14/2024 [id number] She was advised to continue activities as tolerated. [email or web address] Not available 12/14/2024 12:00:02 03/28/2025 [id number] She was advised to continue activities as tolerated. [email or web address] Not available 03/28/2025 10:57:34 Reason for Referral None Reported. Problems Name Problem SNOMED Code Status Onset Date Resolution Date Notes Provider Name and Address Organization Details Recorded Time Low back pain 449400452 Active 2015 Carlita paul MD [address] , [address], [facility] [place], [address], [place] [facility] 6 15:50:45 Lumbosacral radiculitis 40061421 Active 2017 Carlita paul MD [address] , [address], [facility] [place], [address], [place] [facility] 8 10:17:40 Displacement of lumbar intervertebral disc without myelopathy 92052980 Active 2017 Carlita paul MD [address] , [address], [facility] [place], [address], [place] [facility] 8 10:17:41 Lumbosacral spondylosis without myelopathy 84911496 Active 2017 Carlita paul MD [address] , [address], [facility] [place], [address], [place] [facility] 8 10:17:42 Spinal stenosis of lumbar region 18900071 Active 2017 Carlita paul MD [address] , [address], [facility] [place], [address], [place] [facility] 8 10:17:43 Problem Notes None recorded. Procedures Surgical History Date Name Laterality Status Provider Name and Address Organization Details Recorded Time 03/28/20 25 Lumbar Epidural steroid injection under fluoroscopic guidance completed Carlita Aguilar MD [address] , [address], [place], [address], [place] [facility] 03/28/2025 10:58:05 12/15/19 25 Lumbar Epidural steroid injection under fluoroscopic guidance completed Carlita Aguilar MD [address] , [address], [place], [address], [place] [facility] 12/14/2024 12:00:56 08/11/20 24 Lumbar Epidural steroid injection under fluoroscopic guidance completed Carlita Aguilar MD [address] , [address], [place], [address], [place] [facility] 08/11/2024 17:00:18 06/07/20 24 total shoulder replacement completed Carlita Aguilar MD [address] , [address], [place], [address], [place] [facility] 07/28/2024 11:09:13 04/26/20 24 Lumbar Epidural steroid injection under fluoroscopic guidance completed Carlita Aguilar MD [address] , [address], [place], [address], [place] [facility] 04/26/2024 16:35:33 12/22/19 24 Lumbar Epidural steroid injection under fluoroscopic guidance completed Carlita Aguilar MD [address] , [address], [place], [address], [place] [facility] 12/22/2023 15:01:08 07/15/20 23 Lumbar Epidural steroid injection under fluoroscopic guidance completed Carlita Aguilar MD [address] , [address], [place], [address], [place] [facility] 07/15/2023 14:07:22 03/25/20 23 Lumbar Epidural steroid injection under fluoroscopic guidance completed Carlita Aguilar MD [address] [facility] , [address], [place], [address], [place] [facility] 03/25/2023 10:50:21 12/04/19 23 Lumbar Epidural steroid injection under fluoroscopic guidance completed Carlita Aguilar MD [address] , [address], [place], [address], [place] [facility] 12/03/2022 10:16:53 07/29/20 22 Lumbar Epidural steroid injection under fluoroscopic guidance completed Carlita Aguilar MD [address] , [address], [place], [address], [place] [facility] 07/29/2022 09:04:50 03/11/20 22 Lumbar Epidural steroid injection under fluoroscopic guidance completed Carlita Aguilar MD [address] , [address], [place], [address], [place] [facility] 03/11/2022 14:38:59 09/03/19 22 Radiofrequency of Lumbar/Sacral medial branches supplying the facets under fluoroscopic guidance completed Carlita Aguilar MD [address] , [address], [place], [address], [place] [facility] 09/03/2021 15:52:43 05/29/20 21 Fluoroscopic Guided Lumbar Facet Steroid Injections of levels completed Carlita Aguilar MD [address] , [address], [place], [address], [place] [facility] 05/29/2021 10:20:51 12/13/19 21 Fluoroscopic Guided Lumbar Facet Steroid Injections of levels completed Carlita Aguilar MD [address] , [address], [place], [address], [place] [facility] 12/12/2020 13:57:08 10/03/19 21 Lumbar Epidural steroid injection under fluoroscopic guidance completed Carlita Aguilar MD [address] , [address], [place], [address], [place] [facility] 10/03/2020 10:00:24 07/11/20 20 Lumbar Epidural steroid injection under fluoroscopic guidance completed Carlita Aguilar MD [address] , [address], [place], [address], [place] [facility] 07/11/2020 10:28:54 06/13/20 20 Fluoroscopic Guided Lumbar Facet Steroid Injections of levels completed Carlita Aguilar MD [address] , [address], [place], [address], [place] [facility] 06/13/2020 10:06:27 02/21/20 20 Lumbar Epidural steroid injection under fluoroscopic guidance completed Carlita Aguilar MD [address] , [address], [place], [address], [place] [facility] 02/21/2020 10:32:02 10/26/19 20 Fluoroscopic Guided Lumbar Facet Steroid Injections of levels completed Carlita Aguilar MD [address] , [address], [place], [address], [place] [facility] 10/26/2019 14:00:13 08/31/19 20 Lumbar Epidural steroid injection under fluoroscopic guidance completed Carlita Aguilar MD [address] , [address], [place], [address], [place] [facility] 09/05/2019 11:29:25 06/08/20 19 Fluoroscopic Guided Lumbar Facet Steroid Injections of levels completed Carlita Aguilar MD [address] , [address], [place], [address], [place] [facility] 06/10/2019 14:46:56 05/20/20 19 arthrodesis of foot completed Carlita Aguilar MD [address] , [address], [place], [address], [place] [facility] 06/08/2019 09:51:34 04/13/20 19 Lumbar Epidural steroid injection under fluoroscopic guidance completed Cralita Aguilar MD [address] , [address], [place], [address], [place] [facility] 04/20/2019 16:00:55 01/13/20 19 Lumbar Epidural steroid injection under fluoroscopic guidance completed Carlita Aguilar MD [address] , [address], [place], [address], [place] [facility] 01/12/2019 13:18:20 09/22/19 19 Lumbar Epidural steroid injection under fluoroscopic guidance completed Carlita Aguilar MD [address] , [address], [place], [address], [place] [facility] 09/23/2018 11:32:09 05/18/20 18 Lumbar Epidural steroid injection under fluoroscopic guidance completed Carlita Aguilar MD [address] , [address], [place], [address], [place] [facility] 05/18/2018 16:07:36 11/25/19 18 Lumbar Epidural steroid injection under fluoroscopic guidance completed Carlita Aguilar MD [address] , [address], [place], [address], [place] [facility] 11/24/2017 11:24:09 06/30/20 17 Lumbar Epidural steroid injection under fluoroscopic guidance completed Carlita Aguilar MD [address] , [address], [place], [address], [place] [facility] 07/03/2017 08:59:37 03/10/20 17 Lumbar Epidural steroid injection under fluoroscopic guidance completed Carlita Aguilar MD [address] [facility] , [address], [place], [address], [place] [facility] 03/10/2017 14:35:03 11/27/19 17 Lumbar Epidural steroid injection under fluoroscopic guidance completed Carlita Aguilar MD [address] , [address], [place], [address], [place] [facility] 11/26/2016 10:15:50 07/22/20 16 Lumbar Epidural steroid injection under fluoroscopic guidance completed Carlita Aguilar MD [address] [facility] , [address], [place], [address], [place] [facility] 07/22/2016 [...] MD [address] , [address], [place], [address], [place] [facility] 06/26/2023 09:11:01 Imaging Results None recorded. Procedure Notes None recorded. Medical Equipment None Reported. Allergies Allergen ID Allergen Name Allergen Category Reaction Reaction Severity Criticality Documentation Date Start Date Code Code System Note Provider Name and Address Organization Details Recorded Time 10481 latex environme nt,medica tion itching rash Not available Not available Not available 09/22/2018 23348 91 RxNorm Kerrie Oates a[place], [place] - [...] 5 mg tablet TAKE DAILY W/FOOD 1 [id number] S,THEN 1/2TAB DAILY X7DAYS, THEN 1/2TAB EVERY [...] Updated DateTime 5 154.94 cm 31.9 kg/m2 03249.1 1 g 71 /min 98 % 98 % 3 116/81 mm[Hg] Carlita paul MD [address] , [address], [place], [address], [place] [facility] 5 [...] Updated DateTime 5 154.94 cm 33.1 kg/m2 53940.6 6 g 67 /min 100 % 100 % 6 122/77 mm[Hg] Carlita paul MD [address] [facility] , [address], [place], [address], [place] [facility] 5 [...] Or Recreational Drugs Have You Used? No [id number] Information not available 06/08/2020 Education 8 Information no t available 07/09/2016 Live Alone Or With Others? With Others And 3 Children Information not available 07/09/2016 Marital Status [email or web address] Informatio n not available 07/09/2016 What Was The Date Of Your Most Recent Tobacco Screening? 01/12/2019 [id number] Information not available 06/08/2020 Sex: Unknown Functional Status Question Answer Note LastModified by Organization D etails LastModified Time What is your level of alcohol consumption? None [id number] Information not available 06/08/2020 Are you currently employed? No [id number] Information not available 06/08/2020 Mental Status None [...] ICD10 Code Diagnosis IMO Codes Diagnosis Note [id number] Carlita Aguilar MD PAIN OFFICE [address] [place] [address] 07/09/2016 13:59:18 07/13/2016 19:15:18 Lumbosacral radiculitis 61751657 M54.17 Displaceme nt of lumbar intervertebral disc without myelopathy 39353714 M51.26 Lumbosacra l spondylosis without myelopathy 44369526 M47.817 Spinal kj nosis of lumbar region 63138211 M48.06 [id number] Carilta Aguilar MD PAIN OFFICE [address] [place] [address] 07/22/2016 14:36:09 07/23/2016 08:49:04 Lumbosacral radiculitis 86678552 M54.17 Spinal kj nosis of lumbar region 41896076 M48.06 Lumbosacra l spondylosis without myelopathy 71419301 M47.817 Displaceme nt of lumbar intervertebral disc without myelopathy 53746370 M51.26 [id number] Carlita Aguilar MD PAIN OFFICE [address] [place] [address] 08/21/2016 09:37:12 08/21/2016 11:16:14 Lumbosacral radiculitis 98301714 M54.17 Displaceme nt of lumbar intervertebral disc without myelopathy 39020363 M51.26 Lumbosacra l spondylosis without myelopathy 57079584 M47.817 Spinal kj nosis of lumbar region 67122036 M48.06 [id number] Carlita Aguilar MD PAIN OFFICE [address] [place] [address] 11/26/2016 09:05:49 11/26/2016 10:32:43 Lumbosacral radiculitis 92753850 M54.17 Displaceme nt of lumbar intervertebral disc without myelopathy 65673757 M51.26 Lumbosacra l spondylosis without myelopathy 42085904 M47.817 Spinal kj nosis of lumbar region 65419105 M48.06 [id number] Carlita Aguilar MD PAIN OFFICE [address] [place] [address] 03/10/2017 13:13:41 03/11/2017 09:11:35 Lumbosacral radiculitis 51809742 M54.17 Displaceme nt of lumbar intervertebral disc without myelopathy 21709774 M51.26 Lumbosacra l spondylosis without myelopathy 46819570 M47.817 Spinal kj nosis of lumbar region 93419338 M48.06 [id number] Carlita Aguilar MD PAIN OFFICE [address] [place] [address] 06/30/2017 14:07:57 07/03/2017 09:19:34 Lumbosacral radiculitis 22601770 M54.17 Displaceme nt of lumbar intervertebral disc without myelopathy 96385995 1. Lumbosacra l spondylosis without myelopathy 72153534 M47.817 Spinal kj nosis of lumbar region 73723385 M48.062 [id number] Carlita Aguilar MD PAIN OFFICE [address] [email or web address] [address] 11/02/2017 09:59:08 11/02/2017 10:18:49 Lumbosacral radiculitis 78094217 M54.17 Displaceme nt of lumbar intervertebral disc without myelopathy 20020530. Lumbosacra l spondylosis without myelopathy 93055498 M47.817 Spinal kj nosis of lumbar region 60459449 M48.062 [id number] Carlita Aguilar MD PAIN OFFICE [address] [email or web address] [address] 11/24/2017 10:57:35 11/24/2017 14:35:43 Lumbosacral radiculitis 94950939 M54.17 Displaceme nt of lumbar intervertebral disc without myelopathy 20020530. Lumbosacra l spondylosis without myelopathy 68279763 M47.817 Spinal kj nosis of lumbar region 50429677 M48.062 [id number] Carlita Aguilar MD PAIN OFFICE [address] [email or web address] [address] 05/18/2018 09:59:30 05/18/2018 16:10:36 Lumbosacral radiculitis 77786955 M54.17 Displaceme nt of lumbar intervertebral disc without myelopathy 20020530. Lumbosacra l spondylosis without myelopathy 14357787 M47.817 Spinal kj nosis of lumbar region 97444597 M48.062 [id number] Carlita Aguilar MD PAIN OFFICE [address] [email or web address] [address] 09/22/2018 09:38:48 09/23/2018 11:34:42 Lumbosacral radiculitis 97548593 M54.17 Displaceme nt of lumbar intervertebral disc without myelopathy 20020530. Lumbosacra l spondylosis without myelopathy 72744034 M47.817 Spinal kj nosis of lumbar region 90355928 M48.062 [id number] Carlita Aguilar MD [facility] PAIN OFFICE [address] [email or web address] [address] 01/12/2019 11:04:15 01/12/2019 13:20:35 Lumbosacral radiculitis 48188072 M54.17 Displaceme nt of lumbar intervertebral disc without myelopathy 41671796 M51.26 Lumbosacra l spondylosis without myelopathy 21578558 M47.817 Spinal kj nosis of lumbar region 12415828 M48.062 [id number] Carlita Aguilar MD PAIN OFFICE [address] [email or web address] [address] 02/11/2019 08:47:12 02/28/2019 13:23:31 Lumbosacral radiculitis 08703316 M54.17 Displaceme nt of lumbar intervertebral disc without myelopathy 56980107 M51.26 Lumbosacra l spondylosis without myelopathy 23898625 M47.817 Spinal kj nosis of lumbar region 36495943 M48.062 [id number] Carlita Aguilar MD PAIN OFFICE [address] [email or web address] [address] 04/13/2019 09:43:44 04/20/2019 16:03:11 Lumbosacral radiculitis 16601073 M54.17 Displaceme nt of lumbar intervertebral disc without myelopathy 76467421 M51.26 Lumbosacra l spondylosis without myelopathy 53803118 M47.817 Spinal kj nosis of lumbar region 74886097 M48.062 [id number] Carlita Aguilar MD PAIN OFFICE [email or web address] [place] [address] 06/08/2019 09:39:51 06/10/2019 14:50:31 Lumbosacral radiculitis 92813436 M54.17 Displaceme nt of lumbar intervertebral disc without myelopathy 35138099 M51.26 Lumbosacra l spondylosis without myelopathy 18479265 M47.817 Spinal kj nosis of lumbar region 04718468 M48.062 [id number] Carlita Aguilar MD [facility] PAIN OFFICE [address] [facility] [place] [address] 08/01/2019 09:43:56 08/05/2019 14:50:16 Lumbosacral radiculitis 89873832 M54.17 Displaceme nt of lumbar intervertebral disc without myelopathy 41883296 M51.26 Lumbosacra l spondylosis without myelopathy 21109261 M47.817 Spinal kj nosis of lumbar region 91912817 M48.062 [id number] Carlita Aguilar MD PAIN OFFICE [address] [facility] [place] [address] 08/31/2019 09:15:58 09/05/2019 11:31:14 Lumbosacral radiculitis 07302165 M54.17 Displaceme nt of lumbar intervertebral disc without myelopathy 43551807 M51.26 Lumbosacra l spondylosis without myelopathy 88236901 M47.817 Spinal kj nosis of lumbar region 77249834 M48.062 14157 Carlita Aguilar MD PAIN OFFICE [address] [place] [address] 10/26/2019 10:33:53 10/26/2019 14:04:23 Lumbosacral radiculitis 15967569 M54.17 Displaceme nt of lumbar intervertebral disc without myelopathy 42348989 M51.26 Lumbosacra l spondylosis without myelopathy 83623745 M47.817 Spinal kj nosis of lumbar region 14996184 M48.062 [id number] Carlita Aguilar MD SV PAIN OFFICE [address] [place] [address] 02/21/2020 10:01:36 02/21/2020 10:34:34 Lumbosacral radiculitis 32277632 M54.17 Displaceme nt of lumbar intervertebral disc without myelopathy 38378656 M51.26 Lumbosacra l spondylosis without myelopathy 59562361 M47.817 Spinal kj nosis of lumbar region 10663635 M48.062 [id number] Carlita Aguilar MD [facility] PAIN OFFICE [address] [facility] [place] [address] 03/26/2020 13:30:06 03/27/2020 14:14:35 Lumbosacral radiculitis 76005381 M54.17 Displaceme nt of lumbar intervertebral disc without myelopathy 68248475 M51.26 Lumbosacra l spondylosis without myelopathy 16427031 M47.817 Spinal kj nosis of lumbar region 91180057 M48.062 [id number] Carlita Aguilar MD PAIN OFFICE [address] [facility] [place] [address] 05/09/2020 09:32:27 05/09/2020 15:34:23 Lumbosacral radiculitis 36631687 M54.17 Displaceme nt of lumbar intervertebral disc without myelopathy 20020530 M5. Lumbosacra l spondylosis without myelopathy 92537726 M47.817 Spinal kj nosis of lumbar region 37936593 M48.062 [id number] Carlita Aguilar MD PAIN OFFICE [email or web address] [facility] [place] [address] 06/13/2020 09:38:23 06/13/2020 10:36:59 Lumbosacral radiculitis 58802825 M54.17 Displaceme nt of lumbar intervertebral disc without myelopathy 20020530 M5.26 Lumbosacra l spondylosis without myelopathy 82092586 M47.817 Spinal kj nosis of lumbar region 98091811 M48.062 [id number] Carlita Aguilar MD PAIN OFFICE [email or web address] [facility] [place] [address] 07/11/2020 09:09:30 07/11/2020 10:56:32 Lumbosacral radiculitis 49614777 M54.17 Displaceme nt of lumbar intervertebral disc without myelopathy 58949917 M51.26 Lumbosacra l spondylosis without myelopathy 91603605 M47.817 Spinal kj nosis of lumbar region 99232521 M48.062 [id number] Carlita Aguilar MD PAIN OFFICE [address] [facility] [place] [address] 10/01/2020 15:36:47 10/01/2020 15:48:00 Displacement of lumbar intervertebral disc without myelopathy 05893134 M51.26 Lumbosacra l radiculitis 79806330 M54.17 66051 Carlita Aguilar MD PAIN OFFICE [address] [place] [address] 10/03/2020 09:31:03 10/03/2020 10:06:13 Lumbosacral radiculitis 22054001 M54.17 Displaceme nt of lumbar intervertebral disc without myelopathy 38646495 M51.26 Lumbosacra l spondylosis without myelopathy 75029406 M47.817 Spinal kj nosis of lumbar region 37972552 M48.062 36315 Carlita Aguilar MD PAIN OFFICE [address] [address] 11/22/2020 10:56:55 11/23/2020 10:04:47 Lumbosacral radiculitis 10501638 M54.17 Displaceme nt of lumbar intervertebral disc without myelopathy 47084895 M51. Lumbosacra l spondylosis without myelopathy 21484213 M47.817 Spinal kj nosis of lumbar region 14790566 M48.062 [id number] Carlita Aguilar MD PAIN OFFICE [address] [address] 12/12/2020 13:06:16 12/12/2020 16:02:14 Lumbosacral radiculitis 02709768 M54.17 Displaceme nt of lumbar intervertebral disc without myelopathy 20020530 M51.26 Lumbosacra l spondylosis without myelopathy 67588365 M47.817 Spinal kj nosis of lumbar region 89616614 M48.062 [id number] Carlita Aguilar MD PAIN OFFICE [address] [place] [address] 01/09/2021 14:00:49 01/09/2021 14:07:36 Lumbosacral radiculitis 07198215 M54.17 Displaceme nt of lumbar intervertebral disc without myelopathy 20020530 M51.26 Lumbosacra l spondylosis without myelopathy 29216863 M47.817 Spinal kj nosis of lumbar region 11817461 M48.062 13582 Carlita Aguilar MD PAIN OFFICE [address] [email or web address] [address] 05/29/2021 09:55:12 05/29/2021 10:26:38 Lumbosacral radiculitis 33856731 M54.17 Displaceme nt of lumbar intervertebral disc without myelopathy 27786485 M51.26 Lumbosacra l spondylosis without myelopathy 06086261 M47.817 Spinal kj nosis of lumbar region 79168354 M48.062 07609 Carlita Aguilar MD PAIN OFFICE [address] [email or web address] [address] 06/28/2021 09:03:36 06/28/2021 09:25:12 Lumbosacral radiculitis 53829203 M54.17 Displaceme nt of lumbar intervertebral disc without myelopathy 20020530 M51.26 Lumbosacra l spondylosis without myelopathy 19480981 M47.817 Spinal kj nosis of lumbar region 56254964 M48.062 [id number] Carlita Aguilar MD PAIN OFFICE [address] [email or web address] [address] 09/03/2021 13:12:29 09/03/2021 16:09:38 Lumbosacral radiculitis 11099947 M54.17 Displaceme nt of lumbar intervertebral disc without myelopathy 20020530 M51.26 Lumbosacra l spondylosis without myelopathy 47454879 M47.817 Spinal kj nosis of lumbar region 27482541 M48.062 94596 Carlita Aguilar MD PAIN OFFICE [address] [email or web address] [address] 10/07/2021 09:03:04 10/07/2021 09:22:08 Lumbosacral radiculitis 35818386 M54.17 Displaceme nt of lumbar intervertebral disc without myelopathy 52731706 M51.26 Lumbosacra l spondylosis without myelopathy 98896740 M47.817 Spinal kj nosis of lumbar region 14663308 M48.062 [id number] Carlita Aguilar MD [facility] PAIN OFFICE [address] [place] [address] 02/27/2022 14:14:40 02/27/2022 15:01:06 Lumbosacral radiculitis 30389605 M54.17 Displaceme nt of lumbar intervertebral disc without myelopathy 62414932 M51.26 Lumbosacra l spondylosis without myelopathy 37508660 M47.817 Spinal kj nosis of lumbar region 54935352 M48.062 [id number] Carlita Aguilar MD SV PAIN OFFICE [address] [place] [address] 03/11/2022 14:10:41 03/11/2022 14:44:15 Lumbosacral radiculitis 36843609 M54.17 Displaceme nt of lumbar intervertebral disc without myelopathy 25157562 M51.26 Lumbosacra l spondylosis without myelopathy 56742842 M47.817 Spinal kj nosis of lumbar region 62724070 M48.062 16025 Carlita Aguilar MD SV PAIN OFFICE [address] [place] [address] 06/02/2022 14:36:35 06/02/2022 15:13:52 Lumbosacral radiculitis 44839328 M54.17 Displaceme nt of lumbar intervertebral disc without myelopathy 97645821 M51. Lumbosacra l spondylosis without myelopathy 28047073 M47.817 Spinal kj nosis of lumbar region 76268673 M48.062 [id number] Carlita Aguilar MD SV PAIN OFFICE [address] [place] [address] 07/01/2022 10:50:13 07/01/2022 14:03:13 Lumbosacral radiculitis 37774898 M54.17 Displaceme nt of lumbar intervertebral disc without myelopathy 29913585 M51.26 Lumbosacra l spondylosis without myelopathy 00887661 M47.817 Spinal kj nosis of lumbar region 39446560 M48.062 [id number] Carlita Aguilar MD [facility] PAIN OFFICE [address] [place] [address] 07/29/2022 08:27:40 07/29/2022 09:10:29 Lumbosacral radiculitis 35940400 M54.17 Displaceme nt of lumbar intervertebral disc without myelopathy 54743567 M51.26 Lumbosacra l spondylosis without myelopathy 48857778 M47.817 Spinal kj nosis of lumbar region 81194208 M48.062 93305 Carlita Aguilar MD [facility] [address] [place] [address] 10/23/2022 08:32:02 10/23/2022 11:04:01 Lumbosacral radiculitis 62051324 M54.17 Displaceme nt of lumbar intervertebral disc without myelopathy 66663688 M51.26 Lumbosacra l spondylosis without myelopathy 11643578 M47.817 Spinal kj nosis of lumbar region 18655489 M48.062 [id number] Carlita Aguilar MD [facility] [address] [facility] [place] [address] 12/03/2022 08:53:57 12/03/2022 10:54:32 Lumbosacral radiculitis 64790435 M54.17 Displaceme nt of lumbar intervertebral disc without myelopathy 58672039 M51.26 Lumbosacra l spondylosis without myelopathy 14749926 M47.817 Spinal kj nosis of lumbar region 69747055 M48.062 [id number] Carlita Aguilar MD [facility] [address] [facility] [place] [address] 02/19/2023 09:18:24 02/19/2023 10:31:40 Spinal stenosis of lumbar region 27708144 M48.062 Displaceme nt of lumbar intervertebral disc without myelopathy 31131713 M51.26 Lumbosacra l radiculitis 32369272 M54.17 Lumbosacra l spondylosis without myelopathy 83785634 M47.817 63223 Carlita Aguilar MD [facility] [address] [place] [address] 03/25/2023 09:02:29 03/25/2023 11:21:54 Lumbosacral radiculitis 44824655 M54.17 Displaceme nt of lumbar intervertebral disc without myelopathy 39869310 M51.26 Lumbosacra l spondylosis without myelopathy 92938759 M47.817 Spinal kj nosis of lumbar region 89108668 M48.062 45736 Carlita Aguilar MD [facility] [address] [place] [address] 06/26/2023 08:48:28 06/26/2023 10:32:50 Spinal stenosis of lumbar region 48871782 M48.062 Displaceme nt of lumbar intervertebral disc without myelopathy 95542045 M51.26 Lumbosacra l radiculitis 94747076 M54.17 Lumbosacra l spondylosis without myelopathy 90291755 M47.817 53457 Carlita Aguilar MD [facility] [address] [place] [address] 07/15/2023 10:27:39 07/15/2023 15:36:47 Spinal stenosis of lumbar region 42984871 M48.062 Lumbosacra l radiculitis 69151168 M54.17 Displaceme nt of lumbar intervertebral disc without myelopathy 34982143 M51.26 Lumbosacra l spondylosis without myelopathy 20020109 M47.817 25856 Carlita Aguilar MD [facility] [address] [place] [address] 10/16/2023 08:40:15 10/16/2023 10:13:18 Spinal stenosis of lumbar region 55918167 M48.062 Displaceme nt of lumbar intervertebral disc without myelopathy 79877467 M51.26 Lumbosacra l radiculitis 84348467 M54.17 Lumbosacra l spondylosis without myelopathy 99960114 M47.817 70035 Carlita Aguilar MD [facility] [address] [place] [address] 12/22/2023 14:38:42 12/22/2023 15:55:19 Spinal stenosis of lumbar region 91485307 M48.062 Lumbosacra l radiculitis 12853814 M54.17 Displaceme nt of lumbar intervertebral disc without myelopathy 58926853 M51.26 Lumbosacra l spondylosis without myelopathy 37513033 M47.817 38536 Carlita Aguilar MD PAIN OFFICE [address] [facility] [place] [address] 03/23/2024 14:43:41 03/23/2024 16:19:28 Lumbosacral radiculitis 18648763 M54.17 Displaceme nt of lumbar intervertebral disc without myelopathy 34093793 M51.26 Spinal kj nosis of lumbar region 95194399 M48.062 Lumbosacra l spondylosis without myelopathy 76957514 M47.817 [id number] Carlita Aguilar MD PAIN OFFICE [address] [place] [address] 04/26/2024 11:20:20 04/26/2024 16:39:44 Spinal stenosis of lumbar region 13190331 M48.062 Lumbosacra l radiculitis 84632524 M54.17 Displaceme nt of lumbar intervertebral disc without myelopathy 75216589 M51.26 Lumbosacra l spondylosis without myelopathy 05565288 M47.817 81905 Carlita Aguilar MD PAIN OFFICE [address] [place] [address] 07/28/2024 10:57:06 07/28/2024 16:19:19 Lumbosacral radiculitis 90630408 M54.17 Displaceme nt of lumbar intervertebral disc without myelopathy 63576144 M51.26 Spinal kj nosis of lumbar region 72662532 M48.062 Lumbosacra l spondylosis without myelopathy 11169578 M47.817 64944 Carlita Aguilar MD PAIN OFFICE [address] [place] [address] 08/11/2024 10:59:11 08/11/2024 17:07:59 Spinal stenosis of lumbar region 88667086 M48.062 Lumbosacra l radiculitis 07445317 M54.17 Displaceme nt of lumbar intervertebral disc without myelopathy 85825895 M51.26 Lumbosacra l spondylosis without myelopathy 24026375 M47.817 [id number] Carlita Aguilar MD PAIN OFFICE [address] [place] [address] 11/14/2024 11:07:01 11/14/2024 15:22:28 Lumbosacral radiculitis 03986651 M54.17 Spinal kj nosis of lumbar region 30211311 M48.062 Displaceme nt of lumbar intervertebral disc without myelopathy 87135779 M51.26 Lumbosacra l spondylosis without myelopathy 58262014 M47.817 68847 Carlita Aguilar MD PAIN OFFICE [address] [place] [address] 12/14/2024 11:21:01 12/14/2024 16:02:11 Lumbosacral radiculitis 97417623 M54.17 Spinal kj nosis of lumbar region 80334163 M48.062 Displaceme nt of lumbar intervertebral disc without myelopathy 22541157 M51.26 Lumbosacra l spondylosis without myelopathy 98521656 M47.817 62872 Carlita Aguilar MD PAIN OFFICE [address] [place] [address] 03/20/2025 09:41:23 03/20/2025 10:26:17 Lumbosacral radiculitis 04239419 M54.17 Spinal kj nosis of lumbar region 83156054 M48.062 Displaceme nt of lumbar intervertebral disc without myelopathy 65081376 M51.26 Lumbosacra l spondylosis without myelopathy 71703255 M47.817 36625 Carlita Aguilar MD PAIN OFFICE [address] [place] [address] 03/28/2025 10:15:36 03/28/2025 11:44:42 Spinal stenosis of lumbar region 96653182 M48.062 Lumbosacra l radiculitis 50053849 M54.17 Displaceme nt of lumbar intervertebral disc without myelopathy 49550171 M51.26 Lumbosacra l spondylosis without myelopathy 65167887 M47.817 Health Concerns Section Related Observation LastModified by Organization Detai ls LastModified Time None Recorded Concern Status LastModified by Organization Details LastModified Time None Recorded Advance Directives Directive None Recorded Payers Insurance Date Sequence Insurance Name Policy Number Policy Chatterjee Covered Member ID Chatterjee Member ID Guarantor Name 09/25/2020 1 [facility] [id number] Codie Fernández [id number] Codie Fernández 09/25/2020 1 [facility] Kitty Fernández [id number] Codie Fernández 09/25/2020 1 [facility] (O) Kitty Fernández [id number] Codie Fernández 03/25/2025 1 [facility] (MEDICAID REPLACEMENT - HMO) [id number] [id number] Codie Fernández Notes Date Note Type Note Provider Name and Address Organization Details Recorded Time 08/11/2024 text/html She is here for a lumbar epidural steroid injection under fluoroscopic guidance. Carlita Aguilar MD [address] [place] [address] , [address], [place], [address], [place] [facility] 08/11/2024 17:11:07 [...] foot surgery on 11/05/2023 and is seeing [facility]. Her gait is altered due to ankle problems and this is impacting her low back pain.She had carpal tunnel surgery in February and May 2023. She had left shoulder replacement. She is doing better with physical therapy for her shoulder. Carlita Aguilar MD [address] [facility] , [address], [place], [address], [place] [facility] 11/29/2024 15:07:06 12/14/2024 text/html She is here for a lumbar epidural steroid injection under fluoroscopic guidance. Carlita Aguilar MD [address] [facility] , [address], [place], [address], [place] [facility] 12/14/2024 16:10:36 [...] foot surgery on 11/05/2023 and is seeing [facility] surgeons. Her gait is altered due to ankle problems and this is impacting her low back pain.She had carpal tunnel surgery in February and May 2023. She had left shoulder replacement. She is doing better with physical therapy for her shoulder.Her sister in law recently due to stomach cancer and she has to travel to [place] Carlita Aguilar MD [address] , [address], [place], [address], [place] [facility] 03/20/2025 10:35:25 03/28/2025 text/html She is here for a lumbar epidural steroid injection under fluoroscopic guidance. Carlita Aguilar MD [address] , [address], [place], [address], [place] [facility] 03/28/2025 11:47:12 OBGyn Episode No OBEpisode recorded.
--- OUTSIDE RECORDS SUMMARY | 2025-06-07 18:20 | XMS_ITS | Encounter Summary ---
Author Organization [employer] Address [address] [facility] [address] [place] [address] Care Team Providers Care Carburizer Name Role Phone Unavailable Primary Care Provider Unavailabl e Encounter Details Date Type Department Care Team (Late st Contact Info) Description 08/20/2022 Abstract [facility] [address] [place], [place] [id number] Alexus Haney DDS [address] [place], [place] [phone] Social History Tobacco Use Types Packs/Day Years [...]
--- OUTSIDE RECORDS SUMMARY | 2025-06-07 18:20 | XMS_ITS | Clinical Summary ---
Author Organization [facility] Address [address] [place] [address] Care Team Providers Care Radiotelephone Technical Operator Name Role Phone Gt Prescott MD Primary Care Provider [phone] Allergies Active Allergy Reactions Criticality Noted Date [...] deviceIndicati ons:At risk for abuse of opiates [place] contents (4mg) into one nostril once. May [...] exacerbation. Plan: - Cath this AM - laboratory chief diet protocol (clears past midnight) - Continue heparin gtt - Start metoprolol 12.5 tartrate BD (hold for hypotension/bradycardia) - Obtain lipid panel - Start high intensity statin - Start ASA 81 - Sublingual nitroglycerin for chest pain - Obtain proBNP Encounters Date Type Department Care Team Description 05/24/2025 10:17 AM EDT - 05/24/2025 11:27 AM EDT Surgery [facility] Heart & Vascular [place] at [facility] - Cardiac Catheterization Laboratory [address] [place] [phone] Violet Arthur MD CORONARY ANGIO W/LV 05/23/2025 9:25 PM EDT Ancillary Procedure [facility] Emergency Department [address] [place] [phone] Zuhair Laura MD 05/23/2025 6:20 PM EDT Ancillary Procedure [facility] Rad[facility] [address] [place] [phone] Provider, File Room 05/23/2025 5:23 PM EDT - 05/26/2025 3:44 PM EDT Hospital Encounter [place] [address] [address] [place] [address] Zuhair Laura MD Joseph, Kesley, MD Gionfriddo, Robert J, MD Rossi, Victor, MD NSTEMI (non-ST elevated myocardial infarction) (HCC) (Primary Dx); Chest pain, unspecified; Nausea & vomiting; Diarrhea; At risk for abuse of opiates Discharge Disposition: Home or Self Care 05/23/2025 Orders Only [facility] Radiology [address] [place] [address] Provider, File Room 05/23/2025 Travel from Last 3 Months Social History Tobacco Use Types Packs/Day Years Used Date Smoking Tobacco: Never Assessed [facility] Utilities Answer Date Recorded In [...] any time in the past 12 m [facility], were you homeless or living in a [facility] (including now)? No 05/24/2025 Comments Unknown Sex [...] 05/24/2025, 05/23/2025 Medical Devices Implanted Type Area Manager Clinical Research Device Identifier Shelf Expiration Date Model / Serial / Lot [id number] Coronary Stent System Synergy Xd Mr 2.75mm 28mm Delivery [facility] - [id number] Implanted:Qty : 1 on 05/24/2025 by Violet Arthur MD at [facility] Stent N/A: Coronary [employer] KERI [id number] 09/20/2026 [id number] / / [id number] Description:RCA Procedures Procedure Name Priority Date/Time Associated [...] 4.0 - 11.0 Thou/uL 05/25/2025 9:48 AM [facility] Platelet Count 386 150 - 450 Thou/uL 05/25/2025 9:48 AM [facility] Hemoglobin 9.9(L) 11.7 - 15.7 g/dL 05/25/2025 9:48 AM [facility] Hematocrit 33.8(L) 35.0 - 47.0 % 05/25/2025 9:48 AM [facility] Red Blood Cell Count 4.21 4.00 - 5.40 Mil/uL 05/25/2025 9:48 AM [facility] MCV 80 80 - 100 fL 05/25/2025 9:48 AM [facility] MCH 23.5(L) 27.0 - 31.0 pg 05/25/2025 9:48 AM [facility] MCHC 29.3(L) 30.0 - 36.0 g/dL 05/25/2025 9:48 AM [facility] RDW 17.8(H) 11.5 - 14.5 % 05/25/2025 9:48 AM [facility] MPV 10.2 7.5 - 12.5 fL 05/25/2025 9:48 AM [facility] Neutrophils Auto 68.6 % 05/25[facility] Immature Granulocytes 1.6 % 05/25/2025 9:48 AM [facility] Lymphocytes Auto 20.6 % 05/25/20 9:48 AM [facility] Monocytes Auto 6.1 % 05/25/2025 9:48 AM [facility] Eosinophils Auto 2.5 % 05/25/20 9:48 AM [facility] Basophils Auto 0.6 % 05/25/2025 9:48 AM [facility] Abs Neutrophils Auto 5.99 2.00 - 7.50 Thou/uL 05/25/2025 9:48 AM [facility] Abs Immature Granulocytes 0.14(H) 0.00 - 0.10 Thou/uL 05/25/2025 9:[facility] Abs Lymphocytes Auto 1.80 1.50 - 4.50 Thou/uL 05/25/2025 9:48 AM [facility] Abs Monocytes Auto 0.53 0.20 - 1.50 Thou/uL 05/25/2025 9:48 AM [facility] Abs Eosinophils Auto 0.22 0.00 - 0.70 Thou/uL 05/25/2025 9:[facility] Abs Basophils Auto 0.05 0.00 - 0.20 Thou/uL 05/25/2025 9:48 AM [facility] Blood Blood specimen / Unknown 05/25/2025 7:55 AM EDT 05/25/2025 9:14 AM EDT Rajinder Davis MD LAB BLOOD ORDERABLES [place] [address], [address] [address] * (ABNORMAL) Comprehensive Metabolic Panel (05/25/2025 7:55 AM EDT) Only the most recent of2 resultswithin the time period is included. Glucose 115(H) 65 - 99 mg/dL 05/25/2025 10:11 AM [facility] Comment:Fasting: <100 mg/dL, Non-Fasting: <200 mg/dL (ADA 2004) Blood Urea Nitrogen (BUN) 14 8 - 21 mg/dL 05/25/2025 10:11 AM [facility] Creatinine 0.82 0.40 - 1.10 mg/dL 05/25/2025 10:11 AM [facility] eGFR 83 >59 05/25/2025 10:11 AM [facility] Comment:CKD-EPI (2020) in mL /min/1.73 sq meters. Sodium 137 136 - 145 mmol/L 05/25/2025 10:11 AM [facility] Potassium 4.1 3.4 - 5.3 mmol/L 05/25/2025 10:11 AM [facility] Comment:Specimen hemolyzed. Results may be artifactually elevated. Chloride 101 98 - 107 mmol/L 05/25/2025 10:11 AM [facility] CO2 24 22 - 33 mmol/L 05/25/2025 10:11 AM [facility] Calcium 8.9 8.7 - 10.5 mg/dL 05/25/2025 10:11 AM [facility] Alkaline Phosphatase 80 32 - 122 U/L 05/25/2025 10:11 AM [facility] Aspartate Aminotrans (AST) 36 10 - 50 U/L 05/25/2025 10:11 AM [facility] Comment:Specimen hemolyzed. Results may be artifactually elevated. Alanine Aminotrans (ALT) 15 10 - 50 U/L 05/25/2025 10:11 AM [facility] Bilirubin, Total 0.4 0.2 - 1.0 mg/dL 05/25/2025 10:11 AM [facility] Protein, Total 6.4 6.3 - 8.3 g/dL 05/25/2025 10:11 AM [facility] Albumin 3.4(L) 3.5 - 5.0 g/dL 05/25/2025 10:11 AM EDT [facility] BUN/Creatinine Ratio 17 10.0 - 25.0 Ratio 05/25/2025 10:11 AM EDT [facility] Globulin 3.0 1.5 - 3.9 g/dL 05/25/2025 10:11 AM EDT [facility] Albumin/Globulin Ratio 1.1 1.0 - 3.0 Ratio 05/25/2025 10:11 AM EDT [facility] Anion Gap 12 7 - 17 05/25/2025 10:11 AM EDT [facility] Blood Blood specimen / Unknown 05/25/2025 7:55 AM EDT 05/25/2025 9:14 AM EDT us Rajinder Davis MD LAB BLOOD ORDERABLES June l Result Performing Organization Address City/[facility]/[place] [address], [place] [address] * (ABNORMAL) ISTAT Activated Clotting Time, Celite [...] from the original result were not included. [facility] Heart & Vascular [place] at [facility] - Cardiac Catheterization Laboratory PATIENT DEMOGRAPHIC INFORMATION Name: Codie Fernández : 1970 55 y.o. Sex: female Gender: female Procedure Date: 05/24/2025 Referring Physician: Guerrero Estrada PCP: Provider Not In System PROCEDURE: Procedures: * CORONARY ANGIO W/LV * ZORAIDA PLACEMENT, 1ST ARTERY * IVUS 1ST VESSEL Educational Sign Language Interpreter: Violet Arthur MD Fellow: Luis Alberto Pereira MD Crocheter Hand(s): none Indications for Procedure: NSTEMI PCI Indication: [...] Thereafter a IVUS was performed using an [employer] eye IVUS catheter that showed a fibrofatty [...] Implant Name Type Inv. Item Serial No. Manager Clinical Research Lot No. LRB No. Used Action [id number] CORONARY STENT SYSTEM SYNERGY XD MR 2.75MM 28MM DELIVERY SYS - [id number] Stent [id number] CORONARY STENT SYSTEM SYNERGY XD MR 2.75MM 28MM DELIVERY SYS [employer] KERI [id number] N/A 1 Implanted Complications: None Anesthesia: The [...] this patient that I request from a [facility] PA/SUPERVISOR ENGINE REPAIR/fellow/staff member. Fellow : Luis Alberto Pereira MD Attending: Violet Arthur MD [facility] Heart & Vascular [place] 05/24/2025 11:35 AM Cardiac Protocol CAD Percutaneous [...] Status: Urgent PCI Indication: non-STEMI. Indications for Principal System Software Engineer Visit: ACS > 24 hours us Violet Arthur MD CV CARDIAC CATH ORDERABLES Final Result * ABO Confirmation (05/24/2025 11:00 AM EDT) ABO/Rh O POSITIVE 05/24/2025 12:11 PM EDT [facility] Blood specimen / Unknown 05/24/2025 11:00 AM EDT 05/24/2025 11:24 AM EDT us Zuhair Laura MD BLOOD BANK TEST ORDERABLES Final Result Performing Organization Address City/[facility] Co de Phone Number [address] [address], [address] [address] * Type and Screen (05/24/2025 10:45 AM EDT) ABO/Rh O POSITIVE 05/24/2025 12:23 PM EDT [facility] Antibody Screen NEGATIVE 12:23 PM EDT [facility] Specimen Expiration 05/27/2025 05/24/2025 12:23 PM EDT [facility] Blood Blood specimen / Unknown 05/24/2025 10:45 AM EDT 05/24/2025 11:24 AM EDT us Violet Arthur MD BLOOD BANK TEST ORDERABLES Final Result Performing Organization Address City/[facility] Co de Phone Number [address] [address], [address] [address] * Iron and Total Iron Binding Capacity (05/24/2025 7:47 AM EDT) Iron 105 59 - 151 ug/dL 05/24/2025 9:16 AM EDT [facility] UIBC 182 112 - 346 ug/dL 05/24/2025 9:16 AM EDT [facility] Total Iron Binding Capacity 287 100 - 400 ug/dL 05/24/2025 9:16 AM EDT [facility] Iron Sat 37 20 - 50 % 05/24/2025 9:16 AM EDT [facility] Blood Blood specimen / Unknown 05/24/2025 7:47 AM EDT 05/24/2025 8:29 AM EDT us Guerrero Estrada MD LAB BLOOD ORDERABLES Final Resu lt Performing Organization Address City/[facility]/ZIP Co de Phone Number [address] [address], [address] [address] * Heparin Assay (Anti Xa) (05/24/2025 7:47 AM EDT) Only the most recent of3 resultswithin the time period is included. Anti Xa 0.46 IU/mL 05/24/2025 9:25 AM EDT [facility] Comment: (NOTE) Heparin Thromboembolic/Standard/Full Dose Protocol: Therapeutic [...] LOW MOLECULAR WEIGHT 05/24/2025 5:09 AM EDT [facility] Blood Blood specimen / Unknown 05/24/2025 7:47 AM EDT 05/24/2025 8:30 AM EDT us Bill Pratt MD LAB BLOOD ORDERABLES Final Resu lt Performing Organization Address City/[facility]/ZIP Co de Phone Number [address] [address], [address] [address] * (ABNORMAL) Complete Blood Count WITHOUT Differential - Early AM (05/24/2025 7:47 AM EDT) White Blood Cell Count 7.1 4.0 - 11.0 Thou/uL 05/24/2025 8:44 AM EDT [facility] Platelet Count 327 150 - 450 Thou/uL 05/24/2025 8:44 AM EDT [facility] Hemoglobin 9.6(L) 11.7 - 15.7 g/dL 05/24/2025 8:44 AM EDT [facility] Hematocrit 32.1(L) 35.0 - 47.0 % 05/24/2025 8:44 AM [facility] Red Blood Cell Count 3.99(L) 4.00 - 5.40 Mil/uL 05/24/2025 8:44 AM [facility] MCV 81 80 - 100 fL 05/24/2025 8:44 AM [facility] MCH 24.1(L) 27.0 - 31.0 pg 05/24/2025 8:44 AM EDT [facility] MCHC 29.9(L) 30.0 - 36.0 g/dL 05/24/2025 8:44 AM [facility] RDW 17.5(H) 11.5 - 14.5 % 05/24/2025 8:44 AM EDT [facility] MPV 9.7 7.5 - 12.5 fL 05/24[facility]2025 [facility] Blood Blood specimen / Unknown 05/24/2025 7:47 AM EDT 05/24/2025 8:29 AM EDT us Guerrero Estrada MD LAB BLOOD ORDERABLES Final Resu lt Performing Organization Address [facility]/[place] [address], [place] [address] * T4, Free (05/24/2025 7:47 AM EDT) Only the most recent of2 resultswithin the time period is included. T4, Free 1.17 0.80 - 1.90 ng/dL 05/24/2025 9:16 AM EDT [facility] Blood Blood specimen / Unknown 05/24/2025 7:47 AM EDT 05/24/2025 8:29 AM EDT us Guerrero Estrada MD LAB BLOOD ORDERABLES Final Resu lt Performing Organization Address City/[facility]/[place] [address], [address] [address] * Folate Level (05/24/2025 7:47 AM EDT) Folate, Serum 17.9 >7.2 ng/mL 05/24/2025 9:28 AM EDT [facility] Blood Blood specimen / Unknown 05/24/2025 7:47 AM EDT 05/24/2025 8:29 AM EDT us Guerrero Estrada MD LAB BLOOD ORDERABLES Final Resu lt Performing Organization Address City/[facility]/ZIP Co de Phone Number [address] [address], [address] [address] * (ABNORMAL) Ferritin (05/24/2025 7:47 AM EDT) Ferritin 20(L) 30 - 400 ug/L 05/24/2025 9:16 AM EDT [facility] Blood Blood specimen / Unknown 05/24/2025 7:47 AM EDT 05/24/2025 8:29 AM EDT us Guerrero Estrada MD LAB BLOOD ORDERABLES Final Resu lt Performing Organization Address City/[facility]/ZIP Co de Phone Number [address] [address], [address] [address] * Vitamin B12 (05/24/2025 7:47 AM EDT) Vitamin B12 346 243 - 894 pg/mL 05/24/2025 9:16 AM EDT [facility] Blood Blood specimen / Unknown 05/24/2025 7:47 AM EDT 05/24/2025 8:29 AM EDT us Guerrero Estrada MD LAB BLOOD ORDERABLES Final Resu lt Performing Organization Address City/[facility]/ZIP Co de Phone Number [address] [address], [address] [address] * LIPID PANEL (05/24/2025 7:47 AM EDT) Cholesterol, Total 183 <200 mg/dL 2024 9:16 AM [facility] Triglycerides 62 <150 mg/dL 05/24/2025 9:16 AM [facility] Cholesterol, HDL 79 >39 mg/dL 05/24/20 9:16 AM [facility] Estimated LDL 92 <130 mg/dL 05/24/2025 9:16 AM [facility] Comment: Estimated LDL was calculated using the Friedewald equation NCEP Guidelines: < 100 mg/dL Optimal 100 - 129 mg/dL Near Optimal/Above Optimal 130 - 159 mg/dL Borderline High 160 - 189 mg/dL High >/= 190 mg/dL Very High Cholesterol/HDL Ratio 2.3 0.0 - 5.0 Ratio 05/24/2025 9:16 AM [facility] Comment: Relative Risk Ratio - Male Ratio - Female 0.5 3.4 3.3 1.0 5.0 4.4 2.0 9.6 7.1 3.0 23.4 11.0 05/24/2025 7:47 AM EDT 05/24/2025 8:29 AM EDT us Gurerero Estrada MD LAB BLOOD ORDERABLES Final Resu lt [address] [address], [address] [address] * Basic Metabolic Panel (05/24/2025 7:47 AM EDT) Glucose 80 65 - 99 mg/dL 05/24/2025 9:16 AM [facility] Comment:Fasting: <100 mg/dL, Non-Fasting: <200 mg/dL (ADA 2005) Blood Urea Nitrogen (BUN) 13 8 - 21 mg/dL 05/24/2025 9:16 AM [facility] Creatinine 0.99 0.40 - 1.10 mg/dL 05/24/2025 9:16 AM [facility] eGFR 67 >59 05/24/2025 9:16 AM [facility] Comment:CKD-EPI (2020) in mL /min/1.73 sq meters. Sodium 138 136 - 145 mmol/L 05/24/2025 9:16 AM [facility] Potassium 4.2 3.4 - 5.3 mmol/L 05/24/2025 9:16 AM [facility] Chloride 103 98 - 107 mmol/L 05/24/2025 9:16 AM [facility] CO2 26 22 - 33 mmol/L 05/24/2025 9:16 AM [facility] Anion Gap 9 7 - 17 05/24/2025 9:16 AM [facility] Calcium 8.7 8.7 - 10.5 mg/dL 05/24/2025 9:16 AM [facility] BUN/Creatinine Ratio 13 10.0 - 25.0 Ratio 05/24/2025 9:16 AM [facility] Blood Blood specimen / Unknown 05/24/2025 7:47 AM EDT 05/24/2025 8:29 AM EDT us Guerrero Estrada MD LAB BLOOD [place] [address], [place] [address] * (ABNORMAL) High Sensitivity Troponin T (Once) (05/24/2025 12:17 AM EDT) Only the most recent of2 resultswithin the time period is included. High Sensitivity Troponin T 93(HH) <15 ng/L 05/24/2025 12:50 AM [facility] Comment:Recurring Critical R esult. Previously phoned. Delta (Change) 43(H) <3 05/24/2025 12:50 AM [facility] Comment:Decreased Blood Blood specimen / Unknown 05/24/2025 12:17 AM EDT 05/24/2025 12:23 AM EDT us Guerrero Estrada MD LAB BLOOD ORDERABLES Final Resu lt Performing Organization Address City/[facility]/ZIP Co de Phone Number [address] [address], [address] [address] * (ABNORMAL) proBNP, N-terminal (05/24/2025 12:17 AM EDT) proBNP, N-terminal 2,273(H) <125 pg/mL 05/24/2025 4:37 AM EDT [facility] 05/24/2025 12:1 7 AM EDT 05/24/2025 12:23 AM EDT us Guerrero Estrada MD LAB BLOOD ORDERABLES Final Resu lt Performing Organization Address [facility] Co de Phone Number [address] [address], [address] [address] * Ed Performed Us Cardiac Limited (05/23/2025 8:44 PM EDT) Anatomical Region Laterality Modality Ultrasound 05/23/2025 8:34 PM EDT Narrative 05/23/2025 9:20 PM EDT Cardiac ( ED) Exam Information: Exam Category: Diagnostic (Paint Maker) Exam Occurrence: Initial exam Indication(s) for Exam: [...] 7.7(H) <5.7 % 05/24/2025 1:26 AM EDT [facility] Comment: A1c% Interpretation 5.7 - 6.0 Increase risk of diabetes 6.1 - 6.4 Higher risk of diabetes > or = 6.5 Consistent with diabetes Diabetes Care, 33(Supp 1):S1-S61, 2009 Estimated Average Glucose 174 mg/dL 05/24/2025 1:26 AM EDT [facility] Blood specimen / Unknown 05/23/2025 6:19 PM EDT 05/23/2025 6:54 PM EDT us Zuhair Laura MD LAB BLOOD ORDERABLES Final Resul t [address] [address], [address] [address] * (ABNORMAL) Partial Thromboplastin Time (PTT) (05/23/2025 6:19 PM EDT) Anticoagulant IV HEPARIN, UNFRACTIONATED 05/23/2025 5:45 PM EDT [facility] Partial Thromboplastin Time (PTT) 72(H) 25 - 36 seconds 05/23/2025 7:14 PM EDT [facility] Blood Blood specimen / Unknown 05/23/2025 6:19 PM EDT 05/23/2025 6:54 PM EDT us Zuhair Laura MD LAB BLOOD ORDERABLES Final Resul t Performing Organization Address [place] [address], [place] [address] * Protime-INR (05/23/2025 6:19 PM EDT) Anticoagulant IV HEPARIN, UNFRACTIONATED 05/23/2025 5:45 PM EDT [facility] Prothrombin Time (PT) 12.0 10.0 - 13.5 seconds 05/23/2025 7:14 PM EDT [facility] INR 1.0 05/23/2025 7:14 PM EDT [facility] Comment:INR Therapeutic Rang es: Standard dose anticoagulant 2.0 to 3.0, High dose anticoagulant 2.5-3.5. Blood Blood specimen / Unknown 05/23/2025 6:19 PM EDT 05/23/2025 6:54 PM EDT us Zuhair Laura MD LAB BLOOD ORDERABLES Final Resul t Performing Organization Address [facility] [place] [address], [address] [address] * (ABNORMAL) TSH, HIGHLY SENSITIVE (05/23/2025 6:19 PM EDT) [facility] TSH, Highly Sensitive 4.75(H) 0.27 - 4.20 mIU/L 05/23/2025 11:03 PM EDT [facility] 05/23/2025 6:19 PM EDT 05/23/2025 6:54 PM EDT us Zuhair Laura MD LAB BLOOD ORDERABLES Final Resul t Performing Organization Address [facility] [place] [address], [place] [address] * Magnesium (05/23/2025 6:19 PM EDT) [facility] Magnesium 2.0 1.6 - 2.7 mg/dL 05/23/2025 7:37 PM EDT [facility] Blood Blood specimen / Unknown 05/23/2025 6:19 PM EDT 05/23/2025 6:54 PM EDT us Zuhair Laura MD LAB BLOOD ORDERABLES Final Resul t Performing Organization Address [facility] [place] [address], [place] [address] * US Heart Archive for reference only (05/23/2025 6:18 PM EDT) Griselda DAVILA - 05/23/2025 6:18 PM EDT This study has been auto finalized and does not contain a result. us File Room Provider IMG DIGITIZE FILMS Final Resu lt Performing Organization Address City/[facility] Co de Phone Number [place] [phone] * 10 Min ECG 12 lead (05/23/2025 5:25 PM EDT) [facility] Ventricular rate 69 BPM EKG [facility] Atrial rate 69 BPM EKG [facility] P-R interval 162 ms EKG [facility] QRS duration 78 ms EKG [facility] Q-T interval 446 ms EKG [facility] QTC calculation (Bazett) 478 ms EKG [facility] P axis 27 degrees EKG [facility] R axis 8 degrees EKG [facility] T axis 18 degrees EKG [facility] 05/23/2025 5:25 PM EDT Narrative EKG [facility] - 05/23/2025 9:16 PM EDT Normal sinus [...] Bill Pratt MD ECG ORDERABLES Final Result [facility] from Last 3 Months Insurance MEDICAID OUT OF STATE [facility] [place] Advance Directives * Full Code (Latest Code Status on File) Date Activated Date Inactivated Comments 05/23/2025 9:39 PM Question Answer Comments Decision Thoroughly Discussed with: Patient Care Teams Radiotelephone Technical Operator Relationship Specialty Start Date End Date Gt Prescott MD [address] [place] [address] PCP - General Internal Medicine 05/24/25
--- OUTSIDE RECORDS SUMMARY | 2025-06-07 18:20 | XMS_ITS | Encounter Summary ---
Author Organization [employer] Address [address] [facility] [address] [place] [address] Care Team Providers Care Plumbing Assembler Installer Name Role Phone Unavailable Primary Care Provider Unavailabl e Reason for Visit * Reason Comments Med Refill Encounter Details Date Type Department Care Team (Late st Contact Info) Description 09/30/2022 Refill [facility] ADULT DENTAL [address] [place] [address] Alexus Haney DDS [address], [place] [phone] Pain (Primary Dx) Social History Tobacco Use [...]
--- OUTSIDE RECORDS SUMMARY | 2025-06-07 18:20 | XMS_ITS | Encounter Summary ---
Author Organization [employer] [facility] Address [address] [facility] [address] [place] [address] Care Team Providers Care Tobacco Sprayer Name Role Phone Unavailable Primary Care Provider Unavailabl e Reason for Visit * Reason Comments Med Refill Encounter Details Date Type Department Care Team (Late st Contact Info) Description 02/27/[address] [facility] ADULT DENTAL [address] [place], [place] [phone] Miguel Ángel Chong DMD [address] [place], [place] [phone] Encounter for dental examination Social History Tobacco [...]
--- OUTSIDE RECORDS SUMMARY | 2025-06-07 18:20 | XMS_ITS | Encounter Summary ---
Author Organization [employer] Address [address] [facility] [address] [place] [address] Care Team Providers Care Suction Plate Roller Hand Name Role Phone Unavailable Primary Care [...]
--- OUTSIDE RECORDS SUMMARY | 2025-06-07 18:20 | XMS_ITS | Encounter Summary ---
Author Organization [employer] Address [address] [facility] [address] [place] [address] Care Team Providers Care Motor Coach Supervisor Name Role Phone Unavailable Primary Care Provider Unavailabl e Reason for Visit * Reason Comments Med Change Request Encounter Details Date Type Department Care Team (Late st Contact Info) Description 07/26/2024 Refill [facility] [address] [place], [place] [phone] Miguel Ángel Chong DMD [address] [place], [place] [phone] Encounter for dental examination Social History Tobacco [...]
--- OUTSIDE RECORDS SUMMARY | 2025-06-07 18:20 | XMS_ITS | Encounter Summary ---
Author Organization [employer] [facility] Address [address] [place] [address] Care Team Providers Care Personal Computer Specialist Name Role Phone Unavailable Primary Care [...]
--- OUTSIDE RECORDS SUMMARY | 2025-06-07 18:21 | XMS_ITS | Encounter Summary ---
Author Organization [employer] Address [address] 7[address] [place] [address] Care Team Providers Care Box Gluer Name Role Phone Unavailable Primary Care Provider Unavailabl e Reason for Visit * Reason Onset Date Comments appt 01/19/2024 Encounter Details Date Type Department Care Team (Late st Contact Info) Description 01/19/2024 Telephone [facility] [address], [place] [phone] Alexus Haney, DDS [address], [place] [phone] appt Social History Tobacco Use Types Packs/Day [...]
--- OUTSIDE RECORDS SUMMARY | 2025-06-07 18:21 | XMS_ITS | Clinical Summary ---
Author Organization [employer] Address [address] [facility] [address] [place] [address] Care Team Providers Care Process Control Technician Name Role Phone Unavailable Primary Care [...] adult 03/07/2017 Overview (07/12/2024): UNTREATED (August 2022) [facility] Home Polysomnogram: Date 02/27/2017; AHI 7, Unclassified apneas 1; Obstructive apneas 19; Central apneas 5; Mixed apneas 0; hypopneas 19; average oxygen saturation 96% (lowest 90% without saturations <88% for 5% or more of study). Treatment study ordered due to intolerance in the past. If insurance declines, will trial CPAP autoset instead. [facility] [place] treatment study. Date 03/22/2017. SE 87 % SM 91 %; spent 27 % of the study in REM. At the optimal pressure of 9; RDI 2 (AHI 2), Central apneas 2; Obstructive apneas 0; Mixed apneas 0; hypopneas 0; RERAs 0; and, average oxygen saturation was 92%. For the entire study, PLMs ~36. [facility] Polysomnogram: Date 08/11/2019; Wt 200#; BMI [...] reflux disease) 0 Shoulder joint replacement status Immunizations Immunization Administration Dates Next Due INFLUENZA [...] 07/18/2024, 0 12/23/2023, 11/21/2022 COVID-19 Vaccine ( - season) 2025 07/09/2022, [...] Most Recently Relevant to Health Maintenance Insurance [facility] MEDICAID STAND ADULT
--- OUTSIDE RECORDS SUMMARY | 2025-06-07 18:21 | XMS_ITS | Encounter Summary ---
Author Organization [employer] Address [address] [facility] [address] [place] [address] Care Team Providers Care Service Desk Analyst Name Role Phone Unavailable Primary Care Provider Unavailabl e Encounter Details Date Type Department Care Team (Late st Contact Info) Description 12/23/2023 Orders Only [facility]ULT D[facility] [address] [place], [place] [phone] Alexus Haney, DDS [address] [place], [place] [phone] Social History Tobacco Use Types Packs/Day Years [...]
--- OUTSIDE RECORDS SUMMARY | 2025-06-07 18:21 | XMS_ITS | Encounter Summary ---
Author Organization [employer] [facility] Address [address] [place] [address] Care Team Providers Care Cod Clerk Name Role Phone Unavailable Primary Care Provider Unavailabl e Reason for Visit * Reason Comments Med Refill Encounter Details Date Type Department Care Team (Late st Contact Info) Description 06/06/2024 Refill [facility] ADULT D[facility] [address], [place] [phone] Miguel Ángel Chong DMD [address], [place] [phone] Encounter for dental examination Social History Tobacco [...]
--- OUTSIDE RECORDS SUMMARY | 2025-06-07 18:21 | XMS_ITS | Encounter Summary ---
Author Organization [employer] [facility] Address [address] [address] [place] [address] Care Team Providers Care Engraver Automatic Name Role Phone Unavailable Primary Care Provider Unavailabl e Reason for Visit * Reason Comments Med Refill Encounter Details Date Type Department Care Team (Late st Contact Info) Description 12/24/2023 Refill [facility] ADULT D[facility] [address] [place], [place] [phone] Miguel Ángel Chong DMD [address] [place], [place] [phone] Encounter for dental examination Social History Tobacco [...]
== END 2025-06-07 14:55 | disposition home or self-care (01) ==
LOC: HO.HSM 14:37
PROVIDERS: PCP Internal Medicine; Visit Provider Psychiatry & Neurology Neurology
DX: R47.01 Aphasia (principal); I63.412 Cerebral infarction due to embolism of left middle cerebral artery
CPT/HCPCS: 99214

== ENCOUNTER → 2025-06-07 14:37 | Outpatient (BNVA) | payer OTHER, SELFPAY | PROVIDERS: PCP Internal Medicine; Visit Provider Psychiatry & Neurology Neurology | DX: I63.412 Cerebral infarction due to embolism of left middle cerebral artery (principal); I69.320 Aphasia following cerebral infarction | CPT/HCPCS: 99212 ==

== ENCOUNTER 2025-07-16 15:04 | Emergency (ER) | payer OTHER, SELFPAY ==
--- OUTSIDE RECORDS SUMMARY | 2024-06-24 13:30 | XMS_ITS | Encounter Summary ---
Author Organization [facility] Address [address] [place] [address] Care Team Providers Care Foundry Finisher Name Role Phone Gt Prescott MD Primary Care Provider [phone] Encounter Details Date Type Department Care Team (Late st Contact Info) Description 06/24/2024 2:30 PM EDT Hospital Encounter TH HISTORIC ENCOUNTERS EASTERN CONVERSION ONLY Manny Leos MD [facility] [address] [place] [address] Social History Tobacco Use Types Packs/Day Years Used Date Smoking Tobacco: Never Smokeless Tobacco: Never Alcohol Use Standard Drinks/Week Comments No 0 (1 standard drink = 0.6 oz pur e alcohol) Housing Instability Answer Date Recorde d Are you worried that in the next 2 months you may not have stable housing? No 01/03/2025 Food Access & Nutrition Answer Date Rec orded Do you have access to a vari ety of food including fruits and vegetables? No 01/03/2025 Access to Healthcare Answer Date Record ed Within the last 3 months, yamileth w many times did you visit the emergency department for your medical care? 1 01/03/2025 Health Literacy Answer Date Recorded How often do you need to hav e someone help you when you read instructions, pamphlets, or other written material from your doctor or pharmacy? Never 01/03/2025 Caregiver: How often do you need to have someone help you when you read instructions, pamphlets, or other written material from your doctor or pharmacy? Not on file 01/03/2025 Financial Risk Answer Date Recorded How hard is it for you to pa y for the very basics like food, housing, medical care, and air conditioning / heating? Not asked 01/03/2025 Transportation Answer Date Recorded Has the lack of transportati on kept you from meetings, work, or from getting things needed for daily living? No Has the lack of transportati on kept you from medical appointments or from getting medications? No 01/03/2025 Social Isolation Answer Date Recorded How often do you feel lonely or isolated from th ose around you? Never 01/03/2025 Food Risk Answer Date Recorded Within the past 12 months we worried whether our food would run out before we got money to buy more. Never true 01/03/2025 Within the past 12 months th e food we bought just didn't last and we didn't have money to get more. Never true 01/03/2025 Dependent Care Answer Date Recorded Do you need help finding or paying for care for your loved ones. For example, children's literature professor or elderly care for an older adult? No 01/03/2025 Education Answer Date Recorded Do you think completing more education or training, like finishing a GED, going to college, or learning a trade, would be helpful for you? No 01/03/2025 Employment and Income Answer Date Recor ded During the last four weeks, have you been actively looking for work? No 01/03/2025 Living Situation Answer Date Recorded What is your living situation? Unrecognized valu e 01/03/2025 Comments Unknown Sex and Gender Information Value Date Recorded Sex Assigned at Not on file Legal Sex Female 5:04 AM EST Gender Identity Not on file Sexual Orientation Not on file documented as of this encounter Plan of Treatment Upcoming Encounters Date Type Department Care Team (Late st Contact Info) Description 07/25/2025 8:15 AM EST Office Visit Bariatric Surgery - [address] [place] [address] Mitch Mckinney MD [facility] [place] [address] 08/08/2025 10:30 AM EST Office Visit [address] [phone] Lisbet Gonzalez NP [address] [place] [address] 01/05/2026 9:00 AM EDT Office Visit [address] [phone] Gt Prescott MD [address] [place] [address] documented as of this encounter Goals Goal Patient Goal Type Associated Problems Recent Progress Patient-Stated? Author Pt goal General On track(07/04/20 1:42 PM EST) Yes Rosa Sánchez, OT Note: Use LUE for activity again st visits General On track(08/11/20 3:52 PM EST) Yes Rosa Sánchez, OT Note: 1, Indep Phase 2 HEP w/ use of Force karie MET 2. AAROM sh flex at least 120 for eventual fcnl reach MET and exceed 3. AAROM ER at least 30 for eventual fcnl reach for dressing Met and exceed 07/19 new stg's/6 visits 4. Indep Phase 3 HEP w/ use of Force karie 5. AROM sh flex at least 125 for overhead reach 6. AROM sh scap at least 125 for lateral reach ltg 16 visit General On track(09/27/19 11:02 AM EST) Yes Rosa Sánchez, OT Note: 1> Maximize fcnl use of LUE for restored indep BADL/IADL 09/27/24 MET for restored indep (drive. Jade, john) Note pt initially planned to return to prior living situation but has opted to stay w/ daughter instead, however she can do all desired tasks there w/out assist documented as of this encounter Visit Diagnoses Not on filedocumented in this encounter Care Teams Foundry Finisher Relationship Specialty Start Date End Date Gt Prescott MD [address] [place] [phone] PCP - General Internal Medicine 02/21/20 documented as of this encounter
[2025-07-16 15:34] VITALS: BP 135/57; PULSE 83; RESP 16; TEMP 36.4; O2SAT 96; BMI 23.0
--- NOTE | 2025-07-16 15:38 | ED.GENADULT ---
HPI - General Adult General Chief complaint: Back Pain/Injury Stated complaint: hx of stroke, lower back pain and leg numbness? Time Seen by Provider: 07/16/25 19:01 Source: patient and family Mode of arrival: ambulatory Limitations: no limitations History of Present Illness ED Provider: Avril Larson APRN HPI narrative: 55-year-old female with a history of COPD, obstructive sleep apnea, recent CVA currently on Brilinta here with complaints of several weeks of left lower back pain with radiation to the left leg. Patient reports pain radiates from the left lower back into the buttocks and then down the leg with associated numbness and tingling. There is no numbness in the groin. There is no bowel or bladder incontinence. There is no fevers or chills. Patient reports that she was taking ibuprofen until recently when she was told there is contraindication with Brilinta. She went to urgent care yesterday and they prescribed her Flexeril 10 mg t.i.d. and Tylenol 1000 mg 3 times daily. She is also using Lidoderm patches with continued pain. She does have a history of chronic back pain and has received cortisone injections in the past. She did speak to pain management who perform these injections and she needs to be off the Brilinta for 1 month prior to them doing the procedure. She has not had a recent MRI. Related Data Home Medications ?Medication ?Instructions ?Recorded ?Confirmed calcium citrate 200 mg PO DAILY 12/26/21 05/29/25 cholecalciferol (vitamin D3) 25 25 mcg PO DAILY 12/26/21 05/29/25 mcg (1,000 unit) tablet fluticasone propionate 230 1 puff inhalation BID 12/26/21 05/29/25 mcg-salmeterol 21 mcg/actuation HFA inhaler (Advair HFA) hydroxyzine HCl 25 mg tablet 1 tab PO Q8H PRN itch 12/26/21 05/29/25 montelukast 10 mg tablet 10 mg PO BEDTIME 12/26/21 05/29/25 omeprazole 40 mg capsule,delayed 40 mg PO DAILY@0630 12/26/21 05/29/25 release folic acid 1 mg tablet 1 mg PO DAILY 07/24/22 05/29/25 bupropion HCl 300 mg 24 hr tablet, 300 mg PO DAILY 12/22/23 05/29/25 extended release naltrexone 50 mg tablet 50 mg PO DAILY 12/22/23 05/29/25 aspirin 81 mg tablet,delayed 81 mg PO DAILY 05/29/25 05/29/25 release atorvastatin 80 mg tablet 80 mg PO DAILY 05/29/25 05/29/25 losartan 50 mg tablet 50 mg PO DAILY 05/29/25 05/29/25 metoprolol succinate 25 mg 25 mg PO DAILY 05/29/25 05/29/25 tablet,extended release 24 hr naloxone 4 mg/actuation nasal spray 4 mg intranasal Q2M PRN Opioid 05/29/25 05/29/25 Overdose ticagrelor 90 mg tablet (Brilinta) 90 mg PO BID 05/29/25 05/29/25 Previous Rx's ?Medication ?Instructions ?Recorded ipratropium bromide 0.02 % 2.5 ml inhalation QID PRN for 12/20/24 solution for inhalation wheezing #125 mL ipratropium 20 mcg-albuterol 100 1 puff inhalation QID #4 mL 06/30/25 mcg/actuation mist for inhalation (Combivent Respimat) doxycycline hyclate 100 mg tablet 100 mg PO BID copd excerbation 7 07/06/25 days #14 tabs prednisone 5 mg tablet 5 mg PO DIRECTED copd 07/06/25 excerbation 2 weeks #21 tabs prednisone 20 mg tablet 40 mg (2 x 20 mg) PO DAILY #8 tabs 07/16/25 tramadol 50 mg tablet 50 mg PO Q8H PRN pain #6 tabs 07/16/25 Allergies Allergy/AdvReac Type Severity Reaction Status Date / Time latex (Latex) Allergy Mild UNKNOWN Verified 07/16/25 15:35 cats, pollen, mold Allergy Unknown Unknown Uncoded 05/29/25 04:35 Latex Allergy Unknown Unknown Uncoded 05/29/25 04:35 Review of Systems Review of Systems: Yes all other systems are reviewed and are negative Constitutional: Constitutional: Reports no additional constitutional complaints, Denies body ache(s), Denies chills, Denies fever(s), Denies headache(s) and Denies weakness Eyes: Eyes: Reports no additional eye complaints and Denies change in vision ENT: Reports system reviewed and no additional complaints, except as documented, Denies dizziness, Denies headache(s), Denies nasal congestion, Denies nasal discharge and Denies neck pain Cardiovascular: Cardiovascular: Reports no additional cardiovascular complaints, Denies chest pain, Denies leg edema and Denies dyspnea Respiratory: Respiratory: Reports no additional respiratory complaints, Denies cough and Denies dyspnea Gastrointestinal: Gastrointestinal: Reports no additional gastrointestinal complaints, Denies abdominal pain, Denies diarrhea, Denies nausea and Denies vomiting Genitourinary: Genitourinary: Reports no additional female genitourinary complaints and Denies urinary incontinence Musculoskeletal: Musculoskeletal: Reports no additional musculoskeletal complaints, Reports back pain, Denies arthralgias, Denies joint swelling, Denies neck pain, Denies numbness, Reports radiating pain into limb and Denies tingling Integumentary/Breasts: Skin/Breast: Reports system reviewed and no additional complaints, except as docu and Denies rash Neurologic: Reports system reviewed and no additional complaints, except as documented, Denies Abnormal speech present, Denies dizziness, Denies headache(s), Denies numbness, Denies tingling and Denies weakness PMFSH Past Medical History Attestation statement: The following information was validated with the patient. Source: old records reviewed and nursing notes reviewed Medical History Acute CVA (cerebrovascular accident) Allergic alveolitis Bronchitis SPARKLE (obstructive sleep apnea) Allergic rhinitis Asthma Pulmonary embolism Pulmonary cavitary lesion COPD (chronic obstructive pulmonary disease) Pulmonary cavitary lesion Asthma Surgical History H/O gastric sleeve History of partial hysterectomy History of surgery on wrist History of ankle surgery History of knee replacement Family History Family History Father Prostate cancer Social History Social History Household Members: Spouse and Children Housing: House Are you a primary care administrative tech to a significant other at home: Yes (mother) Do you presently have visiting nurse or other home services: No Alcohol intake: never Patient Tobacco Use Status: Never used Tobacco Advance Directives: No Advance Directives Information Provided: Yes Advance Directives Date on File: 12/26/21 service: No Current occupational status: disabled Physical Exam ED Vital Signs: Vital Signs - 24 hr 07/16/25 15:34 07/16/25 19:19 Temperature 97.6 F 97.6 F Pulse Rate 83 52 Respiratory Rate 16 14 Blood Pressure 135/57 L 121/64 Pulse Oximetry 96 100 Oxygen Delivery Method Room Air BMI result Body Mass Index 23.0 Const General: cooperative, healthy appearing, comfortable and no acute distress Orientation/consciousness: patient oriented x3 Limitations: no limitations HENMT Head: Yes normal to inspection Ears: hearing grossly normal bilaterally General nose exam: Normal external nose present Face and sinus: Yes normal facial exam Mouth: Normal oral and palatal mucosa present Throat: Yes posterior oropharynx normal Eyes General: appearance normal, both eyes and all related structures Pupils: Equal, round and reactive pupils present Neck Neck: Yes normal visual inspection Chest Chest palpation & inspection: normal inspection of the chest Resp Effort & Inspection: normal respiratory effort Auscultation: clear to auscultation bilaterally Cardio Rate: regular rate Rhythm: regular rhythm Peripheral pulses: Peripheral pulses 2+ throughout GI Inspection: Yes normal to inspection Palpation (GI): Soft to palpation and nontender Auscultation: normal bowel sounds General: Yes no CVA tenderness Back/Spine/Pelvis Other: There is tenderness the lumbar soft tissue with no midline tenderness, step-offs or deformities. There is also tenderness the left buttocks on palpation. Pain is worsened with left straight leg raise. Back: no CVA tenderness Thoracic/Lumbar Spine: thoracic and lumbar spine normal to inspection Skin General skin exam: no rashes or lesions noted Neuro General: patient oriented x3, no focal motor deficits and normal sensation to monofilament Cranial nerves: Yes Equal, round and reactive pupils present Cognition (Neuro): normal cognition Speech: No Abnormal speech present Gait exam (Neuro): Normal gait present Motor exam (neuro): 5/5 motor strength present throughout Sensory Exam: Normal double simultaneous stimulation for sensation Deep tendon reflexes (DTR's): Right patellar reflex intensity grade: 2+ and Left patellar reflex intensity grade: 2+ Extrem General: Yes normal to inspection Course Course Course Narrative: Rapid medical examination performed in triage by Nayla Verdugo PA-C: Patient is a 55 year old assigned female at presenting to the emergency department with left sided low back pain that radiates down her left leg. Detailed physical exam and review of systems are deferred to the jewelry making instructor. Patient placed back in the waiting room pending room availability. Medical Decision Making Medical Decision Making [facility] Narrative: 55-year-old female with a history of COPD, obstructive sleep apnea, recent CVA currently on Brilinta here with complaints of several weeks of left lower back pain with radiation to the left leg. Patient reports pain radiates from the left lower back into the buttocks and then down the leg with associated numbness and tingling. There is no numbness in the groin. There is no bowel or bladder incontinence. There is no fevers or chills. Patient reports that she was taking ibuprofen until recently when she was told there is contraindication with Brilinta. She went to urgent care yesterday and they prescribed her Flexeril 10 mg t.i.d. and Tylenol 1000 mg 3 times daily. She is also using Lidoderm patches with continued pain. She does have a history of chronic back pain and has received cortisone injections in the past. She did speak to pain management who perform these injections and she needs to be off the Brilinta for 1 month prior to them doing the procedure. She has not had a recent MRI. On exam the patient has no neurological deficits or red flag symptoms. This seems consistent with lumbar radiculopathy. She is taking prednisone 10 mg currently. I recommended that she increase her prednisone to 40 mg for the next 5 days and then continue her taper. She is on prednisone currently for asthma. I will also give her a small amount of tramadol for home. Recommend she continue her other medications. She should follow up outpatient with her primary care doctor as she may benefit from either physical therapy or an outpatient MRI. I did review worrisome signs and symptoms with the patient when she should return to the emergency room. She is comfortable plan for discharge home. Differential Diagnosis Differential Diagnoses: The differential diagnosis associated with the presentation includes Lumbar radiculopathy low suspicion for fracture, malignancy, cord compression, cauda equina, retroperitoneal hemorrhage, ACS, renal colic, pyelonephritis Admission/Observation Consideration of admission/observation: Escalation of care including admission/observation considered lumbar radiculopathy with low suspicion for cord compression or cauda equina requiring emergent MRI and or neurosurgery consultation and/or admission. Independent Historian Clinical information obtained from an independent historian. History obtained from or confirmed by: Other ( daughter) Tests considered The following testing was considered but not selected: no red flag symptoms or neurological deficits necessitating emergent MRI Prescription Management I considered prescription management with: Pain Medication Discharge Plan Discharge Clinical Impression: Lumbar radiculopathy Patient Disposition: Home, Self-Care Instructions: Lumbar Radiculopathy (ED), Lower Back Exercises (ED) Additional Instructions: Heat or ice to the area Continue your Tylenol Continue the flexeril as needed Continue lidoderm patches Call your PCP to follow-up with an outpatient MRI as needed Please take prednisone 40mg for the next 4 days then continue your taper Prescriptions: New prednisone 20 mg tablet 40 mg PO DAILY Qty: 8 0RF tramadol 50 mg tablet 50 mg PO Q8H PRN (Reason: pain) Qty: 6 0RF No Action ipratropium bromide 0.02 % solution 2.5 ml inhalation QID PRN (Reason: for wheezing) Qty: 125 3RF Combivent Respimat 20-100 mcg/actuation mist 1 puff inhalation QID Qty: 4 4RF doxycycline hyclate 100 mg tablet 100 mg PO BID 7 Days Qty: 14 0RF prednisone 5 mg tablet 5 mg PO DIRECTED 14 Days Qty: 21 0RF Rx Instructions: see taper instructions 2 tabs a day for one week , then 1 tab a day for one week omeprazole 40 mg capsule,delayed release(DR/EC) 40 mg PO DAILY@0630 montelukast 10 mg tablet 10 mg PO BEDTIME hydroxyzine HCl 25 mg tablet 1 tab PO Q8H PRN (Reason: itch) calcium citrate 200 mg (950 mg) tablet 200 mg PO DAILY fluticasone propion-salmeterol [Advair HFA] 230-21 mcg/actuation HFA aerosol inhaler 1 puff inhalation BID cholecalciferol (vitamin D3) 25 mcg (1,000 unit) tablet 25 mcg PO DAILY losartan 50 mg tablet 50 mg PO DAILY atorvastatin 80 mg tablet 80 mg PO DAILY aspirin 81 mg tablet,delayed release (DR/EC) 81 mg PO DAILY metoprolol succinate 25 mg tablet extended release 24 hr 25 mg PO DAILY ticagrelor [Brilinta] 90 mg tablet 90 mg PO BID naloxone 4 mg/actuation spray,non-aerosol 4 mg intranasal Q2M PRN (Reason: Opioid Overdose) folic acid 1 mg tablet 1 mg PO DAILY bupropion HCl 300 mg tablet extended release 24 hr 300 mg PO DAILY naltrexone 50 mg tablet 50 mg PO DAILY Referrals: Gt Prescott III, MD [Primary Care Provider, Medical] Print Language: Danish
[2025-07-16 19:19] VITALS: BP 121/64; PULSE 52; RESP 14; TEMP 36.4; O2SAT 100
--- OUTSIDE RECORDS SUMMARY | 2025-07-16 19:25 | XMS_ITS | Clinical Summary ---
Author Organization [facility] Address [address] [place] [address] Care Team Providers Care Rn Navigator Name Role Phone Gt Prescott MD Primary Care Provider [phone] Allergies Active Allergy Reactions Criticality Noted Date [...] (950 mg total) by mouth daily. Active cholecalciferol (D 1000) 1000 units capsule Take [...] coated (ECOTRIN LOW STRENGTH) 81 MG EC tabletIndicatio ns:NSTEMI (non-ST elevated myocardial infarction) (HCC) Take 1 tablet (81 mg total) by mouth daily. 30 tablet 5 Active atorvastatin (LIPITOR) 80 MG tabletIndicatio ns:NSTEMI (non-ST elevated myocardial infarction) (HCC) Take 1 tablet (80 mg total) by mouth daily. 90 tablet 3 5 05/21/20 26 Active metoPROLOL SUCCINATE (TOPROL-XL) 25 MG 24 hr tabletIndicatio ns:NSTEMI (non-ST elevated myocardial infarction) (HCC) Take 1 tablet (25 mg total) by mouth daily. 30 tablet 5 Active ticagrelor (BRILINTA) 90 MG tabletIndicatio ns:NSTEMI (non-ST elevated myocardial infarction) (HCC) Take 1 tablet (90 mg total) by mouth 2 (two) times a day. 60 tablet 5 Active losartan (COZAAR) 50 MG tabletIndicatio ns:NSTEMI (non-ST elevated myocardial infarction) (HCC) Take 1 tablet (50 mg total) by mouth daily. Do not start before May 27, 2025. 90 tablet 3 5 05/22/20 26 Active naloxone (NARCAN) 4 mg/0.1 mL Liquid nasal spray deviceIndicatio ns:At risk for abuse of opiates [place] contents (4mg) into one nostril once. May repeat every 2 to 3 minutes in alternating nostrils. Call 911 immediately after use. 0.2 mL Active Active Problems Problem Noted Date Diagnosed [...] exacerbation. Plan: - Cath this AM - chemical lab technician diet protocol (clears past midnight) - Continue heparin gtt - Start metoprolol 12.5 tartrate BD (hold for hypotension/bradycardia) - Obtain lipid panel - Start high intensity statin - Start ASA 81 - Sublingual nitroglycerin for chest pain - Obtain proBNP Encounters Date Type Department Care Team Description 05/24/2025 10:17 AM EDT - 05/24/2025 11:27 AM EDT Surgery [facility] Heart & Vascular [facility] - Cardiac Catheterization Laboratory [address] [place] [address] Violet Arthur MD CORONARY ANGIO W/LV 05/23/2025 9:25 PM EDT Ancillary Procedure [facility] Emergency Department [address] [place] [phone] Zuhair Laura MD 05/23/2025 6:20 PM EDT Ancillary Procedure [facility] [address] [place] [address] Provider, File Room 05/23/2025 5:23 PM EDT - 05/26/2025 3:44 PM EDT Hospital Encounter [place] [id number] [address] [place] [address] Zuhair Laura MD Joseph, Kesley, MD Gionfriddo, Robert J, MD Rossi, Victor, MD NSTEMI (non-ST elevated myocardial infarction) (HCC) (Primary Dx); Chest pain, unspecified; Nausea & vomiting; Diarrhea; At risk for abuse of opiates Discharge Disposition: Home or Self Care from Last 3 Months Social History Tobacco Use Types Packs/Day Years Used Date Smoking Tobacco: Never Assessed [facility] Utilities Answer Date Recorded In the past 12 months has [employer], gas, oil, or water [employer] threatened to shut off services in your [...] time in the past 12 m [facility], were you homeless or living in a group home (including now)? No 05/24/2025 Comments Unknown Sex [...] (Ages 21-65) 1989 Mammogram 2008 Colonoscopy 2013 RSV Vaccine 50 years and old er and Patients (1 - Risk 50-74 years 1-dose series) 2018 Zoster (Shingles) Vaccine (1 of 2) 2018 Influenza Vaccine 03/24/2025 07/10/2022, , 04/24/2020, Additional history exists COVID-19 Vaccine (2024-2 6 season) 2025 07/09/2022, 10/28/2021, 11/13/2020, Additional history exists Hemoglobin A1C 11/20/2025 05/23/2025, 11/11/2024 Lipid Panel 05/24/2026 05/24/2025 Creatinine with GFR 05/25/2026 05/25/2025, 05/24/2025, 05/23/2025 Medical Devices Implanted Type Area Line Appliance Assembler Device Identifier Shelf Expiration Date Model / Serial / Lot [id number] Coronary Stent System Synergy Xd Mr 2.75mm 28mm Delivery Sys - [id number] Implanted:Qty : 1 on 05/24/2025 by Violet Arthur MD at [facility] Stent N/A: Coronary [employer] [id number] 09/20/2026 [id number] / / [id number] Description:RCA Procedures Procedure Name Priority Date/Time Associated [...] 4.0 - 11.0 Thou/uL 05/25/2025 9:48 AM [facility] Platelet Count 386 150 - 450 Thou/uL 05/25/2025 9:48 AM [facility] Hemoglobin 9.9(L) 11.7 - 15.7 g/dL 05/25/2025 9:48 AM [facility] Hematocrit 33.8(L) 35.0 - 47.0 % 05/25/2025 9:48 AM [facility] Red Blood Cell Count 4.21 4.00 - 5.40 Mil/uL 05/25/2025 9:48 AM [facility] MCV 80 80 - 100 fL 05/25/2025 9:48 AM [facility] MCH 23.5(L) 27.0 - 31.0 pg 05/25/2025 9:48 AM [facility] MCHC 29.3(L) 30.0 - 36.0 g/dL 05/25/2025 9:48 AM [facility] RDW 17.8(H) 11.5 - 14.5 % 05/25/2025 9:48 AM [facility] MPV 10.2 7.5 - 12.5 fL 05/25/2025 9:48 AM [facility] Neutrophils Auto 68.6 % 05/25/20 9:48 AM [facility] Immature Granulocytes 1.6 % 05/25/2025 9:48 AM [facility] Lymphocytes Auto 20.6 % 05/25/20 9:48 AM [facility] Monocytes Auto 6.1 % 05/25/2025 9:48 AM [facility] Eosinophils Auto 2.5 % 05/25/20 9:48 AM EDT [facility] Basophils Auto 0.6 % 05/25/2025 9:48 AM EDT [facility] Abs Neutrophils Auto 5.99 2.00 - 7.50 Thou/uL 05/25/2025 9:48 AM EDT [facility] Abs Immature Granulocytes 0.14(H) 0.00 - 0.10 Thou/uL 05/25/2025 9:48 AM EDT [facility] Abs Lymphocytes Auto 1.80 1.50 - 4.50 Thou/uL 05/25/2025 9:48 AM EDT [facility] Abs Monocytes Auto 0.53 0.20 - 1.50 Thou/uL 05/25/2025 9:48 AM EDT [facility] Abs Eosinophils Auto 0.22 0.00 - 0.70 Thou/uL 05/25/2025 9:48 AM EDT [facility] Abs Basophils Auto 0.05 0.00 - 0.20 Thou/uL 05/25/2025 9:48 AM [facility] Blood Blood specimen / Unknown 05/25/2025 7:55 AM EDT 05/25/2025 9:14 AM EDT Rajinder Davis MD LAB BLOOD ORDERABLES [place] [address], [place] [address] * (ABNORMAL) Comprehensive Metabolic Panel (05/25/2025 7:55 AM EDT) Only the most recent of2 resultswithin the time period is included. Glucose 115(H) 65 - 99 mg/dL 05/25/2025 10:11 AM [facility] Comment:Fasting: <100 mg/dL, Non-Fasting: <200 mg/dL (ADA 2005) Blood Urea Nitrogen (BUN) 14 8 - 21 mg/dL 05/25/2025 10:11 AM EDT [facility] Creatinine 0.82 0.40 - 1.10 mg/dL 05/25/2025 10:11 AM [facility] eGFR 83 >59 05/25/2025 10:11 AM [facility] Comment:CKD-EPI (2020) in mL /min/1.73 sq meters. Sodium 137 136 - 145 mmol/L 05/25/2025 10:11 AM [facility] Potassium 4.1 3.4 - 5.3 mmol/L 05/25/2025 10:11 AM [facility] Comment:Specimen hemolyzed. Results may be artifactually elevated. Chloride 101 98 - 107 mmol/L 05/25/2025 10:11 AM [facility] CO2 24 22 - 33 mmol/L 05/25/2025 10:11 AM [facility] Calcium 8.9 8.7 - 10.5 mg/dL 05/25/2025 10:11 AM [facility] Alkaline Phosphatase 80 32 - 122 U/L 05/25/2025 10:11 AM [facility] Aspartate Aminotrans (AST) 36 10 - 50 U/L 05/25/2025 10:11 AM [facility] Comment:Specimen hemolyzed. Results may be artifactually elevated. Alanine Aminotrans (ALT) 15 10 - 50 U/L 05/25/2025 10:11 AM [facility] Bilirubin, Total 0.4 0.2 - 1.0 mg/dL 05/25/2025 10:11 AM [facility] Protein, Total 6.4 6.3 - 8.3 g/dL 05/25/2025 10:11 AM [facility] Albumin 3.4(L) 3.5 - 5.0 g/dL 05/25/2025 10:11 AM [facility] BUN/Creatinine Ratio 17 10.0 - 25.0 Ratio 05/25/2025 10:11 AM [facility] Globulin 3.0 1.5 - 3.9 g/dL 05/25/2025 10:11 AM [facility] Albumin/Globulin Ratio 1.1 1.0 - 3.0 Ratio 05/25/2025 10:11 AM [facility] Anion Gap 12 7 - 17 05/25/2025 10:11 AM [facility] Blood Blood specimen / Unknown 05/25/2025 7:55 AM EDT 05/25/2025 9:14 AM EDT Rajinder Davis MD LAB BLOOD ORDERABLES June l Result Performing Organization Address City/[facility] Co de Phone Number [address] [address], [address] [address] * (ABNORMAL) ISTAT Activated Clotting Time, Celite (05/24/2025 11:23 AM EDT) Only the most recent of2 resultswithin the time period is included. Activated Clotting Time (Celite), I-STAT 315(H) 84 - 139 seconds 05/25/2025 6:40 AM EDT Blood specimen / Unknown 05/24/2025 11:23 AM EDT 05/25/2025 6:40 AM EDT Nicholas Hill MD POCT ORDERABLES - DEVICE Final R esult Performing Organization Address City/[facility] Co de Phone Number HOSPITAL LAB See Below * CC CORONARY ANGIO W/LV, CC ZORAIDA PLACEMENT, 1ST ARTERY, CC IVUS 1ST VESSEL (05/24/2025 11:16 AM EDT) Anatomical Region Laterality Modality Radiographic Fanta ging Narrative 05/24/2025 5:56 PM EDT Table formatting from the original result was not included. Images from the original result were not included. [facility] Heart & Vascular [facility] - Cardiac Catheterization Laboratory PATIENT DEMOGRAPHIC INFORMATION Name: Codie Fernández : 1970 55 y.o. Sex: female Gender: female Procedure Date: 05/24/2025 Referring Physician: Guerrero Estrada PCP: Provider Not In System PROCEDURE: Procedures: * CORONARY ANGIO W/LV * ZORAIDA PLACEMENT, 1ST ARTERY * IVUS 1ST VESSEL Spinning Mule Tender: Violet Arthur MD Fellow: Luis Alberto Pereira MD Marketing Budget Analyst(s): none Indications for Procedure: NSTEMI PCI Indication: [...] Thereafter a IVUS was performed using an Crow eye IVUS catheter that showed a fibrofatty [...] Implant Name Type Inv. Item Serial No. Line Appliance Assembler Lot No. LRB No. Used Action [id number] CORONARY STENT SYSTEM SYNERGY XD MR 2.75MM 28MM DELIVERY SYS - [id number] Stent [id number] CORONARY STENT SYSTEM SYNERGY XD MR 2.75MM 28MM DELIVERY SYS [id number] N/A 1 Implanted Complications: None Anesthesia: The [...] this patient that I request from a [facility] PA/TOPOGRAPHICAL ENGINEER/fellow/staff member. Fellow : Luis Alberto Pereira MD Attending: Violet Arthur MD [facility] Heart & Vascular [facility] 05/24/2025 11:35 AM Cardiac Protocol CAD Percutaneous Procedure Cardiovascular Instability: No Cardiovascular Instability Type: Ventricular Support Used: Ventricular Support Type: Ventricular Support Timing: Mechanical Support Type: Stress Test Performed: Stress Test Type: Most Recent Stress Test Date: Stress Test Results: Risk/Extent of Ischemia: NYHA HF Class: class III Arterial Cross Over: No Staged PCI?: No CAHP Score: Exact CAHP Score: [facility] Clinical Frailty Score: vulnerable Cardiac Arrest Out of Healthcare Facility: Cardiac Arrest at Transferring Healthcare Facility: Chest Pain Symptom Assessment: typical angina PCI Status: Urgent PCI Indication: non-STEMI. Indications for Windows Support Engineer Visit: ACS > 24 hours us Violet Arthur MD CV CARDIAC CATH ORDERABLES Final Result * ABO Confirmation (05/24/2025 11:00 AM EDT) ABO/Rh O POSITIVE 05/24/2025 12:11 PM EDT [facility] Blood specimen / Unknown 05/24/2025 11:00 AM EDT 05/24/2025 11:24 AM EDT us Zuhair Laura MD BLOOD BANK TEST ORDERABLES Final Result [address] [address], [address] [address] * Type and Screen (05/24/2025 10:45 AM EDT) ABO/Rh O POSITIVE 05/24/2025 12:23 PM EDT [facility] Antibody Screen NEGATIVE 12:23 PM EDT [facility] Specimen Expiration 05/27/2025 05/24/2025 12:23 PM EDT [facility] Blood Blood specimen / Unknown 05/24/2025 10:45 AM EDT 05/24/2025 11:24 AM EDT Violet Arthur MD BLOOD BANK TEST ORDERABLES Final Result Performing Organization Address [facility] [place] [address], [place] [address] * Iron and Total Iron Binding Capacity (05/24/2025 7:47 AM EDT) Pathologist [facility] Iron 105 59 - 151 ug/dL 05/24/2025 9:16 AM EDT [facility] UIBC 182 112 - 346 ug/dL 05/24/2025 9:16 AM EDT [facility] Total Iron Binding Capacity 287 100 - 400 ug/dL 05/24/2025 9:16 AM EDT [facility] Iron Sat 37 20 - 50 % 05/24/2025 9:16 AM EDT [facility] Blood Blood specimen / Unknown 05/24/2025 7:47 AM EDT 05/24/2025 8:29 AM EDT Guerrero Estrada MD LAB BLOOD ORDERABLES Final Resu lt Performing Organization Address [facility] [place] [address], [address] [address] * Heparin Assay (Anti Xa) (05/24/2025 7:47 AM EDT) Only the most recent of3 resultswithin the time period is included. Anti Xa 0.46 IU/mL 05/24/2025 9:25 AM EDT [facility] Comment: (NOTE) Heparin Thromboembolic/Standard/Full Dose Protocol: [...] LOW MOLECULAR WEIGHT 05/24/2025 5:09 AM EDT [facility] Blood Blood specimen / Unknown 05/24/2025 7:47 AM EDT 05/24/2025 8:30 AM EDT us Bill Pratt MD LAB BLOOD [place] [address], [place] [address] * (ABNORMAL) Complete Blood Count WITHOUT Differential - Early AM (05/24/2025 7:47 AM EDT) White Blood Cell Count 7.1 4.0 - 11.0 Thou/uL 05/24/2025 8:44 AM [facility] Platelet Count 327 150 - 450 Thou/uL 05/24/2025 8:44 AM [facility] Hemoglobin 9.6(L) 11.7 - 15.7 g/dL 05/24/2025 8:44 AM [facility] Hematocrit 32.1(L) 35.0 - 47.0 % 05/24/2025 8:44 AM [facility] Red Blood Cell Count 3.99(L) 4.00 - 5.40 Mil/uL 05/24/2025 8:44 AM [facility] MCV 81 80 - 100 fL 05/24/2025 8:44 AM [facility] MCH 24.1(L) 27.0 - 31.0 pg 05/24/2025 8:44 AM [facility] MCHC 29.9(L) 30.0 - 36.0 g/dL 05/24/2025 8:44 AM [facility] RDW 17.5(H) 11.5 - 14.5 % 05/24/2025 8:44 AM EDT [facility] MPV 9.7 7.5 - 12.5 fL 05/24/2025 8:44 AM EDT [facility] Blood Blood specimen / Unknown 05/24/2025 7:47 AM EDT 05/24/2025 8:29 AM EDT us Guerrero Estrada MD LAB BLOOD ORDERABLES Final Resu lt [address] [address], [address] [address] * T4, Free (05/24/2025 7:47 AM EDT) Only the most recent of2 resultswithin the time period is included. T4, Free 1.17 0.80 - 1.90 ng/dL 05/24/2025 9:16 AM EDT [facility] Blood Blood specimen / Unknown 05/24/2025 7:47 AM EDT 05/24/2025 8:29 AM EDT us Guerrero Estrada MD LAB BLOOD ORDERABLES Final Resu lt Performing Organization Address [facility]/ZIP Co de Phone Number [address] [address], [address] [address] * Folate Level (05/24/2025 7:47 AM EDT) Folate, Serum 17.9 >7.2 ng/mL 05/24/2025 9:28 AM EDT [facility] Blood Blood specimen / Unknown 05/24/2025 7:47 AM EDT 05/24/2025 8:29 AM EDT us Guerrero Estrada MD LAB BLOOD ORDERABLES Final Resu lt Performing Organization Address City/[facility]/ZIP Co de Phone Number [address] [address], [address] [address] * (ABNORMAL) Ferritin (05/24/2025 7:47 AM EDT) [facility] Ferritin 20(L) 30 - 400 ug/L 05/24/2025 9:16 AM EDT [facility] Blood Blood specimen / Unknown 05/24/2025 7:47 AM EDT 05/24/2025 8:29 AM EDT us Guerrero Estrada MD LAB BLOOD [place] [address], [address] [address] * Vitamin B12 (05/24/2025 7:47 AM EDT) [facility] Vitamin B12 346 243 - 894 pg/mL 05/24/2025 9:16 AM EDT [facility] Blood Blood specimen / Unknown 05/24/2025 7:47 AM EDT 05/24/2025 8:29 AM EDT us Guerrero Estrada MD LAB BLOOD ORDERABLES Final Resu lt [address] [address], [address] [address] * LIPID PANEL (05/24/2025 7:47 AM EDT) [facility] Cholesterol, Total 183 <200 mg/dL 2024 9:16 AM EDT [facility] Triglycerides 62 <150 mg/dL 05/24/2025 9:16 AM EDT [facility] Cholesterol, HDL 79 >39 mg/dL 05/24/20 9:16 AM EDT [facility] Estimated LDL 92 <130 mg/dL 05/24/2025 9:16 AM EDT [facility] Comment: Estimated LDL was calculated using the Friedewald equation NCEP Guidelines: < 100 mg/dL Optimal 100 - 129 mg/dL Near Optimal/Above Optimal 130 - 159 mg/dL Borderline High 160 - 189 mg/dL High >/= 190 mg/dL Very High Cholesterol/HDL Ratio 2.3 0.0 - 5.0 Ratio 05/24/2025 9:16 AM [facility] Comment: Relative Risk Ratio - Male Ratio - Female 0.5 3.4 3.3 1.0 5.0 4.4 2.0 9.6 7.1 3.0 23.4 11.0 05/24/2025 7:47 AM EDT 05/24/2025 8:29 AM EDT us Guerrero Estrada MD LAB BLOOD [place] [address], [place] [address] * Basic Metabolic Panel (05/24/2025 7:47 AM EDT) Glucose 80 65 - 99 mg/dL 05/24/2025 9:16 AM [facility] Comment:Fasting: <100 mg/dL, Non-Fasting: <200 mg/dL (ADA 2005) Blood Urea Nitrogen (BUN) 13 8 - 21 mg/dL 05/24/2025 9:16 AM [facility] Creatinine 0.99 0.40 - 1.10 mg/dL 05/24/2025 9:16 AM [facility] eGFR 67 >59 05/24/2025 9:16 AM [facility] Comment:CKD-EPI (2020) in mL /min/1.73 sq meters. Sodium 138 136 - 145 mmol/L 05/24/2025 9:16 AM [facility] Potassium 4.2 3.4 - 5.3 mmol/L 05/24/2025 9:16 AM [facility] Chloride 103 98 - 107 mmol/L 05/24/2025 9:16 AM [facility] CO2 26 22 - 33 mmol/L 05/24/2025 9:16 AM [facility] Anion Gap 9 7 - 17 05/24/2025 9:16 AM [facility] Calcium 8.7 8.7 - 10.5 mg/dL 05/24/2025 9:16 AM EDT [facility] BUN/Creatinine Ratio 13 10.0 - 25.0 Ratio 05/24/2025 9:16 AM EDT [facility] Blood Blood specimen / Unknown 05/24/2025 7:47 AM EDT 05/24/2025 8:29 AM EDT us Guerrero Estrada MD LAB BLOOD ORDERABLES Final Resu lt Performing Organization Address [facility] Co de Phone Number [address] [address], [address] [address] * (ABNORMAL) High Sensitivity Troponin T (Once) (05/24/2025 12:17 AM EDT) Only the most recent of2 resultswithin the time period is included. High Sensitivity Troponin T 93(HH) <15 ng/L 05/24/2025 12:50 AM EDT [facility] Comment:Recurring Critical R esult. Previously phoned. Delta (Change) 43(H) <3 05/24/2025 12:50 AM EDT [facility] Comment:Decreased Blood Blood specimen / Unknown 05/24/2025 12:17 AM EDT 05/24/2025 12:23 AM EDT us Guerrero Estrada MD LAB BLOOD ORDERABLES Final Resu lt Performing Organization Address [facility] Co de Phone Number [address] [address], [address] [address] * (ABNORMAL) proBNP, N-terminal (05/24/2025 12:17 AM EDT) proBNP, N-terminal 2,273(H) <125 pg/mL 05/24/2025 4:37 AM EDT [facility] 05/24/2025 12:1 7 AM EDT 05/24/2025 12:23 AM EDT us Guerrero Estrada MD LAB BLOOD ORDERABLES Final Resu lt [address] [address], [address] [address] * Ed Performed [facility] (05/23/2025 8:44 PM EDT) Anatomical Region Laterality Modality Ultrasound 05/23/2025 8:34 PM EDT Narrative 05/23/2025 9:20 PM EDT Cardiac ( ED) Exam Information: Exam Category: Diagnostic (Electric Train Driver) Exam Occurrence: Initial exam Indication(s) for Exam: [...] 23, 2025 at 9:20 PM Procedure Note Zuhiar Laura MD - 05/23/2025 Cardiac ( ED) Exam Information: Exam Category: Diagnostic (Electric Train Driver) Exam Occurrence: Initial exam Indication(s) for Exam: [...] 7.7(H) <5.7 % 05/24/2025 1:26 AM EDT [facility] Comment: A1c% Interpretation 5.7 - 6.0 Increase risk of diabetes 6.1 - 6.4 Higher risk of diabetes > or = 6.5 Consistent with diabetes Diabetes Care, 33(Supp 1):S1-S61, 2009 Estimated Average Glucose 174 mg/dL 05/24/2025 1:26 AM EDT [facility] Blood specimen / Unknown 05/23/2025 6:19 PM EDT 05/23/2025 6:54 PM EDT us Zuhair Laura MD LAB BLOOD ORDERABLES Final Resul t [address] [address], [address] [address] * (ABNORMAL) Partial Thromboplastin Time (PTT) (05/23/2025 6:19 PM EDT) Anticoagulant IV HEPARIN, UNFRACTIONATED 05/23/2025 5:45 PM EDT [facility] Partial Thromboplastin Time (PTT) 72(H) 25 - 36 seconds 05/23/2025 7:14 PM EDT [facility] Blood Blood specimen / Unknown 05/23/2025 6:19 PM EDT 05/23/2025 6:54 PM EDT us Zuhair Laura MD LAB BLOOD ORDERABLES Final Resul t Performing Organization Address City/[facility]/ZIP Co de Phone Number [address] [address], [address] [address] * Protime-INR (05/23/2025 6:19 PM EDT) Anticoagulant IV HEPARIN, UNFRACTIONATED 05/23/2025 5:45 PM EDT [facility] Prothrombin Time (PT) 12.0 10.0 - 13.5 seconds 05/23/2025 7:14 PM EDT [facility] INR 1.0 05/23/2025 7:14 PM EDT [facility] Comment:INR Therapeutic Rang es: Standard dose anticoagulant 2.0 to 3.0, High dose anticoagulant 2.5-3.5. Blood Blood specimen / Unknown 05/23/2025 6:19 PM EDT 05/23/2025 6:54 PM EDT us Zuhair Laura MD LAB BLOOD ORDERABLES Final Resul t Performing Organization Address [facility]/ZIP Co de Phone Number [address] [address], [address] [address] * (ABNORMAL) TSH, HIGHLY SENSITIVE (05/23/2025 6:19 PM EDT) TSH, Highly Sensitive 4.75(H) 0.27 - 4.20 mIU/L 05/23/2025 11:03 PM EDT [facility] 05/23/2025 6:19 PM EDT 05/23/2025 6:54 PM EDT us Zuhair Laura MD LAB BLOOD ORDERABLES Final Resul t [address] [address], [address] [address] * Magnesium (05/23/2025 6:19 PM EDT) Magnesium 2.0 1.6 - 2.7 mg/dL 05/23/2025 7:37 PM EDT [facility] Blood Blood specimen / Unknown 05/23/2025 6:19 PM EDT 05/23/2025 6:54 PM EDT Zuhair Laura MD LAB BLOOD ORDERABLES Final Resul t Performing Organization Address [facility] de Phone Number [address] [address], [address] [address] * [place] Heart Archive for reference only (05/23/2025 6:18 PM EDT) Narrative [facility] - 05/23/2025 6:18 PM EDT This study has been auto finalized and does not contain a result. File Room Provider IMG DIGITIZE FILMS Final Resu lt Performing Organization Address [facility] de Phone Number [facility] [phone] * 10 Min ECG 12 lead (05/23/2025 5:25 PM EDT) Ventricular rate 69 BPM EKG [facility] Atrial rate 69 BPM EKG [facility] P-R interval 162 ms EKG [facility] QRS duration 78 ms EKG [facility] Q-T interval 446 ms EKG [facility] QTC calculation (Bazett) 478 ms EKG [facility] P axis 27 degrees EKG [facility] R axis 8 degrees EKG [facility] T axis 18 degrees EKG [facility] 05/23/2025 5:25 PM EDT Narrative EKG [facility] - 05/23/2025 9:16 PM EDT Normal sinus rhythm Septal infarct , age undetermined Abnormal ECG No previous ECGs available Confirmed by MD Strange Shishir ([id number]) on 05/23/2025 9:16:25 PM Procedure Note Erik Strange MD - 05/23/2025 Normal sinus rhythm Septal infarct , age undetermined Abnormal ECG No previous ECGs available Confirmed by MD Alexandr, [facility] ([id number]) on 05/23/2025 9:16:25 PM us Bill Pratt MD ECG ORDERABLES Final Result EKG [facility] from Last 3 Months Insurance MEDICAID OUT OF STATE [facility] Advance Directives * Full Code (Latest Code Status on File) Date Activated Date Inactivated Comments 05/23/2025 9:39 PM Question Answer Comments Decision Thoroughly Discussed with: Patient Care Teams Rn Navigator Relationship Specialty Start Date End Date Gt Prescott MD [address] [place] [address] PCP - General Internal Medicine 05/24/25
--- OUTSIDE RECORDS SUMMARY | 2025-07-16 19:25 | XMS_ITS | Encounter Summary ---
Author Organization [employer] Address [address] [facility] [address] [place] [address] Care Team Providers Care College Basketball Coach Name Role Phone Unavailable Primary Care Provider Unavailabl e Reason for Visit * Reason Comments Med Refill Encounter Details Date Type Department Care Team (Late st Contact Info) Description 12/20/2024 Refill [facility] ADULT DENTAL [address] [place], [place] [phone] Alexus Haney DDS [address] [place], [place] [phone] Social History Tobacco Use Types Packs/Day Years [...]
--- OUTSIDE RECORDS SUMMARY | 2025-07-16 19:25 | XMS_ITS | Encounter Summary ---
Author Organization [facility] Address [address] [place] [address] Care Team Providers Care Metabolic Specialist Name Role Phone Gt Prescott MD Primary Care Provider [phone] Encounter Details Date Type Department Care Team (Late st Contact Info) Description 06/29/2025 Results Follow-Up Adult Medicine [address] [phone] Gt Prescott MD [address] [place] [address] Social History Tobacco Use Types Packs/Day Years [...] do you feel lonely or isolated from ose around you? Never 01/03/2025 Food Risk [...] your loved ones. For example, child care counselor or elderly care for an older adult? [...] AM EST Office Visit Bariatric Surgery - [address] [place] [address] Mitch Mckinney MD [address] [place] [phone] 08/08/2025 10:30 AM EST Office Visit [address] [phone] Lisbet Gonzalez, SAMPLE TAKER OPERATOR [address] [place] [address] 01/05/2026 9:00 AM EDT Office Visit [address] [phone] Gt Prescott MD [address] [place] [address] documented as of this encounter Goals Goal [...] Diagnoses Not on filedocumented in this encounter Additional Health Concerns Assessment Noted Time PHQ-9 Depression Total Score: 0 01/04/20 25 7:55 AM EDT documented as of this encounter Care Teams Metabolic Specialist Relationship Specialty Start Date End Date Gt Prescott MD [address] [place] [address] PCP - General Internal Medicine 02/21/20 documented as of this encounter
--- OUTSIDE RECORDS SUMMARY | 2025-07-16 19:25 | XMS_ITS | Encounter Summary ---
Author Organization [facility] Address [address] [place] [address] Care Team Providers Care Submarine Worker Name Role Phone Gt Prescott MD Primary Care Provider [phone] Encounter Details Date Type Department Care Team (Late st Contact Info) Description 06/22/2025 Results Follow-Up Adult Medicine [address] [phone] Gt Prescott MD [address] [place] [address] Social History Tobacco Use Types Packs/Day Years [...] your loved ones. 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 [...] AM EST Office Visit Bariatric Surgery - [address] [place] [address] Mitch Mckinney MD [address] [place] [phone] 08/08/2025 10:30 AM EST Office Visit [address] [phone] Lisbet Gonzalez, TAX CREDIT LEASING CONSULTANT [address] [place] [address] 01/05/2026 9:00 AM EDT Office Visit [address] [phone] Gt Prescott MD [address] [place] [address] documented as of this encounter Goals Goal [...] documented as of this encounter Care Teams Submarine Worker Relationship Specialty Start Date End Date Gt Prescott MD [address] [place] [address] PCP - General Internal Medicine 02/21/20 documented as of this encounter
--- OUTSIDE RECORDS SUMMARY | 2025-07-16 19:25 | XMS_ITS | Encounter Summary ---
Author Organization [facility] Address [address] [place] [address] Care Team Providers Care Pinball Machine Repairer Name Role Phone Unavailable Primary Care Provider Unavailabl e Reason for Visit * Reason Comments Med Refill Encounter Details Date Type Department Care Team (Late st Contact Info) Description 06/30/2025 Refill [facility] ADULT DENTAL [address] [place], [place] [phone] Miguel Ángel Chong, AMOS [address] [place], [place] [phone] Encounter for dental examination Social History Tobacco [...]
--- OUTSIDE RECORDS SUMMARY | 2025-07-16 19:26 | XMS_ITS | Clinical Summary ---
Author Organization [employer] Address [address] [facility] [address] [place] [address] Care Team Providers Care Stonecutter Hand Name Role Phone Unavailable Primary Care [...] adult 03/07/2017 Overview (07/12/2024): UNTREATED (August 2022) [facility] Home Polysomnogram: Date 02/27/2017; AHI 7, Unclassified apneas 1; Obstructive apneas 19; Central apneas 5; Mixed apneas 0; hypopneas 19; average oxygen saturation 96% (lowest 90% without saturations <88% for 5% or more of study). Treatment study ordered due to intolerance in the past. If insurance declines, will trial CPAP autoset instead. [facility] Polysomnogram treatment study. Date 03/22/2017. SE 87 % SM 91 %; spent 27 % of the study in REM. At the optimal pressure of 9; RDI 2 (AHI 2), Central apneas 2; Obstructive apneas 0; Mixed apneas 0; hypopneas 0; RERAs 0; and, average oxygen saturation was 92%. For the entire study, PLMs ~36. [facility] Polysomnogram: Date 08/11/2019; Wt 200#; BMI 38; [...] Encounters Date Type Department Care Team Description 06/30/2025 Refill [facility] ADULT DENTAL [address] [place] [address] Miguel Ángel Chong DMD Encounter for dental [...] (2 of 2 - PCV) 10/03/2016 10/03/2015 RSV Patients and Patients Aged 60 years or older (1 - Risk 50-74 years 1-dose series) 2018 Dental X-Ray: Full Mouth 06/26/2024 06/25/2021 Dental Oral Exam 01/10/2025 07/12/2024, 10/07/2022 Dental Prophylaxis 01/16/2025 07/18/2024, 0 12/23/2023, 11/21/2022 COVID-19 Vaccine ( season) 2025 07/09/2022, 10/28/2021, 11/13/2020, Additional history exists Influenza Vaccine (#1) 2025 , 07/10/2022, 05/24/2021, Additional history exists Tobacco Screening 11/14/2025 11/14/2024 Dental X-Ray: Bitewings 11/15/2025 11/15/19, 10/11/2024, 07/12/2024, Additional history exists Diabetes: Hemoglobin A1C 06/21/2026 06/21/2025, 03/2 08/2024 DTaP/Tdap/Td Vaccines (4 - Td or Tdap) 11/04/2034 11/04/2024, 11/03/2023, 03/07/2013, Additional history exists Zoster Vaccines Completed 02/16/2021, 07/11/2020 HIB Vaccines [...] Most Recently Relevant to Health Maintenance Insurance [facility] MEDICAID STAND ADULT
--- OUTSIDE RECORDS SUMMARY | 2025-07-16 19:26 | XMS_ITS | Data Portability ---
Author Organization [facility] Pain Managem ent, PAIN OFFICE Address [address] [facility] [address] [facility] [place] [address] Care Team Providers Care News Assignment Editor Name Role Phone [facility] Referring Provider [phone] RONALD RM Primary Care Provider Assessment Encounter [...] causing mild flattening of the dural sac, omil-iu-yuufqgj e right and mild left-sided foraminal stenosis. [...] causing mild flattening of the dural sac, vbxi-ax-sybpgfw e right and mild left-sided foraminal stenosis. [...] booked after insurance approval. 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 [...] causing mild flattening of the dural sac, pbey-jy-geufjmn e right and mild left-sided foraminal stenosis. [...] booked after insurance approval. 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 [...] Details Last Modified Time Details Appointments RETURN 2025 10:00A M Carlita paul MD Not available Not available Not available Lab None recorded . Referral None recorded . Procedures None recorded . Surgeries None recorded . Imaging None recorded . Medication Orders None recorded . Patient TargetsNo targets recorded. Patient Instructions Encounter Date Encounter Id Patient Instructions Last Modified By Organization Details Last Modified Time 08/11/2024 [id number] She was advised to continue activities as tolerated. [email or web address] Not available 08/11/2024 16:59:30 12/14/2024 [id number] She was advised to continue activities as tolerated. [email or web address] Not available 12/14/2024 12:00:02 03/28/2025 [id number] She was advised to continue activities as tolerated. [email or web address] Not available 03/28/2025 10:57:34 Reason for Referral None Reported. Problems Name Problem SNOMED Code Status Onset Date Resolution Date Notes Provider Name and Address Organization Details Recorded Time Low back pain 967674819 Active 2015 Carlita paul MD [address], [facility] [place], [address], [place] [facility] 6 15:50:45 Lumbosacral radiculitis 95836647 Active 2017 Carlita paul MD [address], [facility] [place], [address], [place] [facility] 8 10:17:40 Displacement of lumbar intervertebral disc without myelopathy 83644285 Active 2017 Carlita paul MD [address], [facility] [place], [address], [place] [facility] 8 10:17:41 Lumbosacral spondylosis without myelopathy 72565606 Active 2017 Carlita paul MD [address], [facility] [place], [address], [place] [facility] 8 10:17:42 Spinal stenosis of lumbar region 57032646 Active 2017 Carlita paul MD [address], [facility] [place], [address], [place] [facility] 8 10:17:43 Problem Notes None recorded. Procedures Surgical History Date Name Laterality Status Provider Name and Address Organization Details Recorded Time 03/28/20 25 Lumbar Epidural steroid injection under fluoroscopic guidance completed Carlita Aguilar MD [address], [place], [address], [place] [facility] 03/28/2025 10:58:05 12/15/19 25 Lumbar Epidural steroid injection under fluoroscopic guidance completed Carlita Aguilar MD [address], [place], [address], [place] [facility] 12/14/2024 12:00:56 08/11/20 24 Lumbar Epidural steroid injection under fluoroscopic guidance completed Carlita Aguilar MD [address], [place], [address], [place] [facility] 08/11/2024 17:00:18 06/07/20 24 total shoulder replacement completed Carlita Aguilar MD [address], [place], [address], [place] [facility] 07/28/2024 11:09:13 04/26/20 24 Lumbar Epidural steroid injection under fluoroscopic guidance completed Carlita Aguilar MD [address], [place], [address], [place] [facility] 04/26/2024 16:35:33 12/22/19 24 Lumbar Epidural steroid injection under fluoroscopic guidance completed Carlita Aguilar MD [address], [place], [address], [place] [facility] 12/22/2023 15:01:08 07/15/20 23 Lumbar Epidural steroid injection under fluoroscopic guidance completed Carlita Aguilar MD [address], [place], [address], [place] [facility] 07/15/2023 14:07:22 03/25/20 23 Lumbar Epidural steroid injection under fluoroscopic guidance completed Carlita Aguilar MD [address] [employer] [facility] , [address], [place], [address], [place] [facility] 03/25/2023 10:50:21 12/04/19 23 Lumbar Epidural steroid injection under fluoroscopic guidance completed Carlita Aguilra MD [address], [place], [address], [place] [facility] 12/03/2022 10:16:53 07/29/20 22 Lumbar Epidural steroid injection under fluoroscopic guidance completed Carlita Aguilar MD [address], [place], [address], [place] [facility] 07/29/2022 09:04:50 03/11/20 22 Lumbar Epidural steroid injection under fluoroscopic guidance completed Carlita Aguilar MD [address], [place], [address], [place] [facility] 03/11/2022 14:38:59 09/03/19 22 Radiofrequency of Lumbar/Sacral medial branches supplying the facets under fluoroscopic guidance completed Carlita Aguilar MD [address], [place], [address], [place] [facility] 09/03/2021 15:52:43 05/29/20 21 Fluoroscopic Guided Lumbar Facet Steroid Injections of levels completed Carlita Aguilar MD [address], [place], [address], [place] [facility] 05/29/2021 10:20:51 12/13/19 21 Fluoroscopic Guided Lumbar Facet Steroid Injections of levels completed Carlita Aguilar MD [address], [place], [address], [place] [facility] 12/12/2020 13:57:08 10/03/19 21 Lumbar Epidural steroid injection under fluoroscopic guidance completed Carlita Aguilar MD [address], [place], [address], [place] [facility] 10/03/2020 10:00:24 07/11/20 20 Lumbar Epidural steroid injection under fluoroscopic guidance completed Carlita Aguilar MD [address], [place], [address], [place] [facility] 07/11/2020 10:28:54 06/13/20 20 Fluoroscopic Guided Lumbar Facet Steroid Injections of levels completed Carlita Aguilar MD [address], [place], [address], [place] [facility] 06/13/2020 10:06:27 02/21/20 20 Lumbar Epidural steroid injection under fluoroscopic guidance completed Carlita Aguilar MD [address], [place], [address], [place] [facility] 02/21/2020 10:32:02 10/26/19 20 Fluoroscopic Guided Lumbar Facet Steroid Injections of levels completed Carlita Aguilar MD [address], [place], [address], [place] [facility] 10/26/2019 14:00:13 08/31/19 20 Lumbar Epidural steroid injection under fluoroscopic guidance completed Carlita Aguilar MD [address], [place], [address], [place] [facility] 09/05/2019 11:29:25 06/08/20 19 Fluoroscopic Guided Lumbar Facet Steroid Injections of levels completed Carlita Aguilar MD [address], [place], [address], [place] [facility] 06/10/2019 14:46:56 05/20/20 19 arthrodesis of foot completed Carlita Aguilar MD [address], [place], [address], [place] [facility] 06/08/2019 09:51:34 04/13/20 19 Lumbar Epidural steroid injection under fluoroscopic guidance completed Carlita Aguilar MD [address], [place], [address], [place] [facility] 04/20/2019 16:00:55 01/13/20 19 Lumbar Epidural steroid injection under fluoroscopic guidance completed Carlita Aguilar MD [address], [place], [address], [place] [facility] 01/12/2019 13:18:20 09/22/19 19 Lumbar Epidural steroid injection under fluoroscopic guidance completed Carlita Aguilar MD [address], [place], [address], [place] [facility] 09/23/2018 11:32:09 05/18/20 18 Lumbar Epidural steroid injection under fluoroscopic guidance completed Carlita Aguilar MD [address], [place], [address], [place] [facility] 05/18/2018 16:07:36 11/25/19 18 Lumbar Epidural steroid injection under fluoroscopic guidance completed Carlita Aguilar MD [address], [place], [address], [place] [facility] 11/24/2017 11:24:09 06/30/20 17 Lumbar Epidural steroid injection under fluoroscopic guidance completed Carlita Aguilar MD [address] , [address], [place], [address], [place] [facility] 07/03/2017 08:59:37 03/10/20 17 Lumbar Epidural steroid injection under fluoroscopic guidance completed Carlita Aguilar MD [address] [facility] , [address], [place], [address], [place] [facility] 03/10/2017 14:35:03 11/27/19 17 Lumbar Epidural steroid injection under fluoroscopic guidance completed Carlita Aguilar MD [address] , [address], [place], [address], [place] [facility] 11/26/2016 10:15:50 07/22/20 16 Lumbar Epidural steroid injection under fluoroscopic guidance completed Carlita Aguilar MD [address] [facility] , [address], [place], [address], [place] [facility] 07/22/2016 [...] 07/09/2016 14:32:02 Carpal tunnel surgery completed Carlita Augilar MD [address] , [address], [place], [address], [place] [facility] 06/26/2023 09:11:01 Imaging Results None recorded. Procedure Notes None recorded. Medical Equipment None Reported. Allergies Allergen ID Allergen Name Allergen Category Reaction Reaction Severity Criticality Documentation Date Start Date Code Code System Note Provider Name and Address Organization Details Recorded Time 84372 latex environme nt,medica tion itching rash Not available Not available Not available 09/22/2018 15468 91 RxNorm Kerrie rutledge, [place] [facility] 9 [...] completed Not Available Not Available Not Available losartan 50 mg tablet TAKE 1 TABLET (50 MG TOTAL) BY MOUTH DAILY. DO NOT START BEFORE MAY 27, 2025. active Not Available Not Available No t Available celecoxib 200 mg capsule 07/28 completed [...] Not Available Not Available No t Available atorvasta tin 80 mg tablet TAKE 1 TABLET BY MOUTH [...] Available prednison e 20 mg tablet TAKE 1 TABLET BY MOUTH TWICE A DAY FOR COPD EXCERBAT ION FOR 5 DAYS active Not Available Not Available No t Available prednison e 5 mg tablet TAKE DAILY W/FOOD 1 [id number] S,THEN 1/2TAB DAILY X7DAYS, THEN 1/2TAB EVERY [...] Available aspirin 81 mg tablet,de layed release TAKE 1 TABLET BY MOUTH EVERY DAY active Not Available Not Available No t Available tramadol 50 mg tablet TAKE 1 [...] completed Not Available Not Available Not Available metoprolo l succinate ER 25 mg tablet,ex tended release 24 hr TAKE 1 TABLET BY MOUTH EVERY DAY active Not Available Not Available No t Available azelastin e 137 mcg (0.1 %) [...] mg tablet TAKE 1 TABLET BY MOUTH 2 TIMES A DAY FOR BRONCHIT IS FOR 7 DAYS 07/04 completed Not Available Not Available Not Available [...] completed Not Available Not Available Not Available ticagrelo r 90 mg tablet TAKE 1 TABLET BY MOUTH 2 TIMES A DAY. active Not Available Not Available No t Available Combivent Respimat 20 mcg-100 mcg/actua tion solution for inhalatio n INHALE 1 PUFF BY MOUTH 4 TIMES A DAY active Not Available Not [...] Not Available Not Available No t Available naloxone 4 mg/actuat ion nasal spray PLEASE SEE ATTACHED FOR DETAILED DIRECTIO NS [...] (BMI) Body weight Heart rate Oxygen saturation Pain severity - 0-10 verbal numeric rating [Score] - Reported Systolic And Diastolic Provider Name and Address Organization Details Last Updated DateTime 5 154.94 cm 31.9 kg/m2 94366.1 1 g 71 /min 98 % 3 116/81 mm[Hg] Carlita paul MD [address], [place], [address], [place] [facility] 5 11:12:48 Date Recorded Body height Pain severity - 0-10 verbal numeric rating [Score] - Reported Heart rate Oxygen saturation Systolic And Diastolic Provider Name and Address Organization Details Last Updated DateTime 12/14/2024 154.94 cm 4 78 /min 97 % 123/70 mm[Hg] Susan Wright [place] - [facility] 5 11:40:24 Date Recorded Body height Body mass index (BMI) Body weight Heart rate Oxygen saturation Pain severity - 0-10 verbal numeric rating [Score] - Reported Systolic And Diastolic Provider Name and Address Organization Details Last Updated DateTime 5 154.94 cm 33.1 kg/m2 90051.6 6 g 67 /min 100 % 6 122/77 mm[Hg] Carlita paul MD [address], [place], [address], [place] [facility] 5 09:48:01 Date Recorded Body height Heart rate Oxygen saturation Systolic And Diastolic Provider Name and Address Organization Details Last Updated DateTime 03/28/2025 154.94 cm 74 /min 98 % 148/77 mm[Hg] Almita Black [place] - [facility] 03/28/2025 10:38:39 Date Recorded Body height Heart rate Oxygen saturation Pain severity - 0-10 verbal numeric rating [Score] - Reported Systolic And Diastolic Provider Name and Address Organization Details Last Updated DateTime 4 154.94 cm 68 /min 98 % 3 132/73 mm[Hg] Denita Rogers [place] - [facility] 4 11:07:24 Social History Question Answer Notes LastModified by Organizat ion Details LastModified Time Tobacco Smoking Status Never Smoker Not Available [employer] 06/08/2020 03:16:12 Which Illicit Or Recreational Drugs Have You Used? No [id number] Information not available 06/08/2020 Education 8 Information no t available 07/09/2016 Live Alone Or With Others? With Others [facility] 3 [email or web address] Information not available 07/09/2016 Marital Status [facility]6 Informatio n not available 07/09/2016 What Was The Date Of Your Most Recent Tobacco Screening? 01/12/2019 [id number] Information not available 06/08/2020 Sex: Unknown Functional Status Question Answer Note LastModified by Organization D etails LastModified Time What is your level of alcohol consumption? None [id number] Information not available 06/08/2020 Are you currently employed? No [id number] Information not available 06/08/2020 Mental Status None recorded. Family History Relationship Description Onset Age of this Age Resolved Age Notes LastModified by Organization Details LastModified Time Mother Cerebrovascu lar accident 85 years [facility] in [facility] Not available 02/27/2022 14:47:26 Medical History Condition Response Arthritis Y Asthma Y Gynecological HistoryNo gynecological history recorded. Obstetrics History GPAL:G 0 P 0 0 0 0 Past Encounters Encounter ID Performer Location Encounter Start Date Encounter Closed Date Diagnosis/Indication Diagnosis SNOMED-CT Code Diagnosis ICD10 Code Diagnosis IMO Codes Diagnosis Note [id number] Carlita Aguilar MD PAIN OFFICE [address] [facility] [address] [facility] [place] [address] 07/09/2016 13:59:18 07/13/2016 19:15:18 Lumbosacral radiculitis 62977185 M54.17 Displaceme nt of lumbar intervertebral disc without myelopathy 20439416 M51.26 Lumbosacra l spondylosis without myelopathy 26557228 M47.817 Spinal kj nosis of lumbar region 06914028 M48.06 [id number] Carlita Aguilar MD [facility] PA[facility] [address] [place] [address] 07/22/2016 14:36:09 07/23/2016 08:49:04 Lumbosacral radiculitis 05541774 M54.17 Spinal kj nosis of lumbar region 13810824 M48.06 Lumbosacra l spondylosis without myelopathy 01114567 M47.817 Displaceme nt of lumbar intervertebral disc without myelopathy 17393294 M51.26 [id number] Carlita Aguilar MD PAIN OFFICE [address] [place] [address] 08/21/2016 09:37:12 08/21/2016 11:16:14 Lumbosacral radiculitis 04390369 M54.17 Displaceme nt of lumbar intervertebral disc without myelopathy 13322240 M51.26 Lumbosacra l spondylosis without myelopathy 36337291 M47.817 Spinal kj nosis of lumbar region 24790689 M48.06 [id number] Carlita Aguilar MD PAIN OFFICE [address] [place] [address] 11/26/2016 09:05:49 11/26/2016 10:32:43 Lumbosacral radiculitis 43914216 M54.17 Displaceme nt of lumbar intervertebral disc without myelopathy 95788914 M51.26 Lumbosacra l spondylosis without myelopathy 12365278 M47.817 Spinal kj nosis of lumbar region 07931839 M48.06 [id number] Carlita Aguilar MD [facility] PA[facility] [address] [place] [address] 03/10/2017 13:13:41 03/11/2017 09:11:35 Lumbosacral radiculitis 26642744 M54.17 Displaceme nt of lumbar intervertebral disc without myelopathy 10274428 M51.26 Lumbosacra l spondylosis without myelopathy 96534746 M47.817 Spinal kj nosis of lumbar region 82682974 M48.06 [id number] Carlita Aguilar MD [facility] PAIN OFFICE [address] [place] [address] 06/30/2017 14:07:57 07/03/2017 09:19:34 Lumbosacral radiculitis 96079682 M54.17 Displaceme nt of lumbar intervertebral disc without myelopathy 89870994 M51.26 Lumbosacra l spondylosis without myelopathy 59106376 M47.817 Spinal kj nosis of lumbar region 91485143 M48.062 [id number] Carlita Aguilar MD PAIN OFFICE [address] [facility] [place] [address] 11/02/2017 09:59:08 11/02/2017 10:18:49 Lumbosacral radiculitis 09502135 M54.17 Displaceme nt of lumbar intervertebral disc without myelopathy 200205301.26 Lumbosacra l spondylosis without myelopathy 99829778 M47.817 Spinal kj nosis of lumbar region 58765836 M48.062 [id number] Carlita Aguilar MD PAIN OFFICE [address] [place] [address] 11/24/2017 10:57:35 11/24/2017 14:35:43 Lumbosacral radiculitis 75677226 M54.17 Displaceme nt of lumbar intervertebral disc without myelopathy 20020530 M5. Lumbosacra l spondylosis without myelopathy 93875447 M47.817 Spinal kj nosis of lumbar region 92702812 M48.062 [id number] Carlita Aguilar MD PAIN OFFICE [address] [place] [address] 05/18/2018 09:59:30 05/18/2018 16:10:36 Lumbosacral radiculitis 65249999 M54.17 Displaceme nt of lumbar intervertebral disc without myelopathy 20020530 M51.26 Lumbosacra l spondylosis without myelopathy 84675334 M47.817 Spinal kj nosis of lumbar region 45332624 M48.062 [id number] Carlita Aguilar MD PAIN OFFICE [address] [place] [address] 09/22/2018 09:38:48 09/23/2018 11:34:42 Lumbosacral radiculitis 83879728 M54.17 Displaceme nt of lumbar intervertebral disc without myelopathy 55229726 M51.26 Lumbosacra l spondylosis without myelopathy 50374711 M47.817 Spinal kj nosis of lumbar region 84014679 M48.062 [id number] Carlita Aguilar MD PAIN OFFICE [address] [place] [place] [address] 01/12/2019 11:04:15 01/12/2019 13:20:35 Lumbosacral radiculitis 54087781 M54.17 Displaceme nt of lumbar intervertebral disc without myelopathy 20020530 M5. Lumbosacra l spondylosis without myelopathy 99461519 M47.817 Spinal kj nosis of lumbar region 32864249 M48.062 [id number] Carlita Aguilar MD PAIN OFFICE [address] [place] [place] [address] 02/11/2019 08:47:12 02/28/2019 13:23:31 Lumbosacral radiculitis 48099353 M54.17 Displaceme nt of lumbar intervertebral disc without myelopathy 88220929 M51.26 Lumbosacra l spondylosis without myelopathy 73080721 M47.817 Spinal kj nosis of lumbar region 75811371 M48.062 [id number] Carlita Aguilar MD PAIN OFFICE [address] [place] [address] 04/13/2019 09:43:44 04/20/2019 16:03:11 Lumbosacral radiculitis 96565986 M54.17 Displaceme nt of lumbar intervertebral disc without myelopathy 40171551 M51.26 Lumbosacra l spondylosis without myelopathy 31248978 M47.817 Spinal kj nosis of lumbar region 37887642 M48.062 [id number] Carlita Aguilar MD PAIN OFFICE [address] [place] [address] 06/08/2019 09:39:51 06/10/2019 14:50:31 Lumbosacral radiculitis 33062973 M54.17 Displaceme nt of lumbar intervertebral disc without myelopathy 49377815 M51.26 Lumbosacra l spondylosis without myelopathy 30330539 M47.817 Spinal kj nosis of lumbar region 00930220 M48.062 [id number] Carlita Aguilar MD PAIN OFFICE [address] [place] [place] [address] 08/01/2019 09:43:56 08/05/2019 14:50:16 Lumbosacral radiculitis 80656832 M54.17 Displaceme nt of lumbar intervertebral disc without myelopathy 97950892 M51. Lumbosacra l spondylosis without myelopathy 25636181 M47.817 Spinal kj nosis of lumbar region 59906092 M48.062 [id number] Carlita Aguilar MD PAIN OFFICE [address] [place] [place] [address] 08/31/2019 09:15:58 09/05/2019 11:31:14 Lumbosacral radiculitis 65863252 M54.17 Displaceme nt of lumbar intervertebral disc without myelopathy 20020530 M51.26 Lumbosacra l spondylosis without myelopathy 76817966 M47.817 Spinal kj nosis of lumbar region 25979526 M48.062 [id number] Carlita Aguilar MD PAIN OFFICE [address] [place] [address] 10/26/2019 10:33:53 10/26/2019 14:04:23 Lumbosacral radiculitis 19282020 M54.17 Displaceme nt of lumbar intervertebral disc without myelopathy 20020530 M51. Lumbosacra l spondylosis without myelopathy 40528193 M47.817 Spinal kj nosis of lumbar region 43518065 M48.062 [id number] Carlita Aguilar MD PAIN OFFICE [address] [place] [place] [address] 02/21/2020 10:01:36 02/21/2020 10:34:34 Lumbosacral radiculitis 06867141 M54.17 Displaceme nt of lumbar intervertebral disc without myelopathy 01905912 M51.26 Lumbosacra l spondylosis without myelopathy 68987252 M47.817 Spinal kj nosis of lumbar region 79142878 M48.062 [id number] Carlita Aguilar MD PAIN OFFICE [address] [place] [address] 03/26/2020 13:30:06 03/27/2020 14:14:35 Lumbosacral radiculitis 05661607 M54.17 Displaceme nt of lumbar intervertebral disc without myelopathy 85958401 M51. Lumbosacra l spondylosis without myelopathy 14958238 M47.817 Spinal kj nosis of lumbar region 67033172 M48.062 [id number] Carlita Aguilar MD PAIN OFFICE [address] [place] [address] 05/09/2020 09:32:27 05/09/2020 15:34:23 Lumbosacral radiculitis 79561123 M54.17 Displaceme nt of lumbar intervertebral disc without myelopathy 20020530. Lumbosacra l spondylosis without myelopathy 22024615 M47.817 Spinal kj nosis of lumbar region 98514528 M48.062 [id number] Carlita Aguilar MD PAIN OFFICE [address] [place] [address] 06/13/2020 09:38:23 06/13/2020 10:36:59 Lumbosacral radiculitis 03981228 M54.17 Displaceme nt of lumbar intervertebral disc without myelopathy 20020530. Lumbosacra l spondylosis without myelopathy 98447504 M47.817 Spinal kj nosis of lumbar region 68552286 M48.062 [id number] Carlita Aguilar MD PAIN OFFICE [address] [place] [address] 07/11/2020 09:09:30 07/11/2020 10:56:32 Lumbosacral radiculitis 73632382 M54.17 Displaceme nt of lumbar intervertebral disc without myelopathy 20020530 M5. Lumbosacra l spondylosis without myelopathy 65322289 M47.817 Spinal kj nosis of lumbar region 13445392 M48.062 [id number] Carlita Aguilar MD [facility] PAIN OFFICE [address] [place] [address] 10/01/2020 15:36:47 10/01/2020 15:48:00 Displacement of lumbar intervertebral disc without myelopathy 00203549 M51.26 Lumbosacra l radiculitis 87505808 M54.17 [id number] Carlita Aguilar MD [facility] PAIN OFFICE [address] [place] [address] 10/03/2020 09:31:03 10/03/2020 10:06:13 Lumbosacral radiculitis 38408454 M54.17 Displaceme nt of lumbar intervertebral disc without myelopathy 56619837 M51.26 Lumbosacra l spondylosis without myelopathy 74714181 M47.817 Spinal kj nosis of lumbar region 20817770 M48.062 [id number] Carlita Aguilar MD [facility] [address] [address] 11/22/2020 10:56:55 11/23/2020 10:04:47 Lumbosacral radiculitis 75885074 M54.17 Displaceme nt of lumbar intervertebral disc without myelopathy 68849494 M51.26 Lumbosacra l spondylosis without myelopathy 03845674 M47.817 Spinal kj nosis of lumbar region 78318713 M48.062 [id number] Carlita Aguilar MD [facility] [address] [place] [address] 12/12/2020 13:06:16 12/12/2020 16:02:14 Lumbosacral radiculitis 36953525 M54.17 Displaceme nt of lumbar intervertebral disc without myelopathy 77684183 M51.26 Lumbosacra l spondylosis without myelopathy 60582431 M47.817 Spinal kj nosis of lumbar region 28441102 M48.062 [id number] Carlita Aguilar MD [facility] [address] [place] [address] 01/09/2021 14:00:49 01/09/2021 14:07:36 Lumbosacral radiculitis 36224132 M54.17 Displaceme nt of lumbar intervertebral disc without myelopathy 91686818 M51.26 Lumbosacra l spondylosis without myelopathy 76768406 M47.817 Spinal kj nosis of lumbar region 35496541 M48.062 [id number] Carlita Aguilar MD PAIN OFFICE [address] [facility] [place] [address] 05/29/2021 09:55:12 05/29/2021 10:26:38 Lumbosacral radiculitis 62137343 M54.17 Displaceme nt of lumbar intervertebral disc without myelopathy 20020530 M51. Lumbosacra l spondylosis without myelopathy 84838356 M47.817 Spinal kj nosis of lumbar region 90994860 M48.062 [id number] Carlita Aguilar MD PAIN OFFICE [address] [facility] [place] [place] [address] 06/28/2021 09:03:36 06/28/2021 09:25:12 Lumbosacral radiculitis 70135358 M54.17 Displaceme nt of lumbar intervertebral disc without myelopathy 20020530 M51. Lumbosacra l spondylosis without myelopathy 42853059 M47.817 Spinal kj nosis of lumbar region 16110388 M48.062 [id number] Carlita Aguilar MD PAIN OFFICE [address] [facility] [place] [place] [address] 09/03/2021 13:12:29 09/03/2021 16:09:38 Lumbosacral radiculitis 20255188 M54.17 Displaceme nt of lumbar intervertebral disc without myelopathy 76658420 M51. Lumbosacra l spondylosis without myelopathy 06823896 M47.817 Spinal kj nosis of lumbar region 16027014 M48.062 [id number] Carlita Aguilar MD PAIN OFFICE [address] [facility] [place] [address] 10/07/2021 09:03:04 10/07/2021 09:22:08 Lumbosacral radiculitis 00499607 M54.17 Displaceme nt of lumbar intervertebral disc without myelopathy 09415613 M51.26 Lumbosacra l spondylosis without myelopathy 68870514 M47.817 Spinal kj nosis of lumbar region 85572180 M48.062 [id number] Carlita Aguilar MD PAIN OFFICE [address] [place] [address] 02/27/2022 14:14:40 02/27/2022 15:01:06 Lumbosacral radiculitis 02505210 M54.17 Displaceme nt of lumbar intervertebral disc without myelopathy 55200438 M51.26 Lumbosacra l spondylosis without myelopathy 42152876 M47.817 Spinal kj nosis of lumbar region 98527575 M48.062 [id number] Carlita Aguilar MD PAIN OFFICE [address] [place] [place] [address] 03/11/2022 14:10:41 03/11/2022 14:44:15 Lumbosacral radiculitis 65859049 M54.17 Displaceme nt of lumbar intervertebral disc without myelopathy 20020530 M51.26 Lumbosacra l spondylosis without myelopathy 70953208 M47.817 Spinal kj nosis of lumbar region 01464567 M48.062 [id number] Carlita Aguilar MD PAIN OFFICE [address] [place] [place] [address] 06/02/2022 14:36:35 06/02/2022 15:13:52 Lumbosacral radiculitis 94648066 M54.17 Displaceme nt of lumbar intervertebral disc without myelopathy 09836502 M51. Lumbosacra l spondylosis without myelopathy 14629211 M47.817 Spinal kj nosis of lumbar region 59631023 M48.062 [id number] Carlita Aguilar MD PAIN OFFICE [address] [place] [address] 07/01/2022 10:50:13 07/01/2022 14:03:13 Lumbosacral radiculitis 98653904 M54.17 Displaceme nt of lumbar intervertebral disc without myelopathy 55891532 M51.26 Lumbosacra l spondylosis without myelopathy 26930304 M47.817 Spinal kj nosis of lumbar region 25136167 M48.062 [id number] Carlita Aguilar MD PAIN OFFICE [address] [place] [address] 07/29/2022 08:27:40 07/29/2022 09:10:29 Lumbosacral radiculitis 59223526 M54.17 Displaceme nt of lumbar intervertebral disc without myelopathy 65312366 M51.26 Lumbosacra l spondylosis without myelopathy 85247997 M47.817 Spinal kj nosis of lumbar region 22367660 M48.062 [id number] Carlita Aguilar MD PAIN OFFICE [address] [place] [address] 10/23/2022 08:32:02 10/23/2022 11:04:01 Lumbosacral radiculitis 93115832 M54.17 Displaceme nt of lumbar intervertebral disc without myelopathy 04422533 M51.26 Lumbosacra l spondylosis without myelopathy 68560088 M47.817 Spinal kj nosis of lumbar region 22106168 M48.062 [id number] Carlita Aguilar MD PAIN OFFICE [address] [place] [place] [address] 12/03/2022 08:53:57 12/03/2022 10:54:32 Lumbosacral radiculitis 25718176 M54.17 Displaceme nt of lumbar intervertebral disc without myelopathy 43014568 M51.26 Lumbosacra l spondylosis without myelopathy 34081462 M47.817 Spinal kj nosis of lumbar region 25686515 M48.062 [id number] Carlita Aguilar MD PAIN OFFICE [address] [place] [address] 02/19/2023 09:18:24 02/19/2023 10:31:40 Spinal stenosis of lumbar region 97145757 M48.062 Displaceme nt of lumbar intervertebral disc without myelopathy 40095711 M51.26 Lumbosacra l radiculitis 61291293 M54.17 Lumbosacra l spondylosis without myelopathy 25601818 M47.817 [id number] Carlita Aguilar MD PAIN OFFICE [address] [place] [address] 03/25/2023 09:02:29 03/25/2023 11:21:54 Lumbosacral radiculitis 65989608 M54.17 Displaceme nt of lumbar intervertebral disc without myelopathy 97480135 M51.26 Lumbosacra l spondylosis without myelopathy 79363065 M47.817 Spinal kj nosis of lumbar region 92063611 M48.062 [id number] Carlita Aguilar MD PAIN OFFICE [address] [place] [address] 06/26/2023 08:48:28 06/26/2023 10:32:50 Spinal stenosis of lumbar region 54825477 M48.062 Displaceme nt of lumbar intervertebral disc without myelopathy 57505744 M51.26 Lumbosacra l radiculitis 51692147 M54.17 Lumbosacra l spondylosis without myelopathy 55664937 M47.817 [id number] Carlita Aguilar MD PAIN OFFICE [address] [place] [address] 07/15/2023 10:27:39 07/15/2023 15:36:47 Spinal stenosis of lumbar region 73185282 M48.062 Lumbosacra l radiculitis 46189186 M54.17 Displaceme nt of lumbar intervertebral disc without myelopathy 76453967 M51.26 Lumbosacra l spondylosis without myelopathy 42589894 M47.817 [id number] Carlita Aguilar MD PAIN OFFICE [address] [place] [address] 10/16/2023 08:40:15 10/16/2023 10:13:18 Spinal stenosis of lumbar region 03811489 M48.062 Displaceme nt of lumbar intervertebral disc without myelopathy 10378910 M51.26 Lumbosacra l radiculitis 92794684 M54.17 Lumbosacra l spondylosis without myelopathy 75490360 M47.817 [id number] Carlita Aguilar MD PAIN OFFICE [address] [place], [place] 9 12/22/2023 14:38:42 12/22/2023 15:55:19 Spinal stenosis of lumbar region 94225612 M48.062 Lumbosacra l radiculitis 90887305 M54.17 Displaceme nt of lumbar intervertebral disc without myelopathy 06453955 M51.26 Lumbosacra l spondylosis without myelopathy 95247058 M47.817 [id number] Carlita Aguilar MD PAIN OFFICE [address] [place], [place] 9 03/23/2024 14:43:41 03/23/2024 16:19:28 Lumbosacral radiculitis 80715135 M54.17 Displaceme nt of lumbar intervertebral disc without myelopathy 44258335 M51.26 Spinal kj nosis of lumbar region 89932825 M48.062 Lumbosacra l spondylosis without myelopathy 48247342 M47.817 [id number] Carlita Aguilar MD PAIN OFFICE [address] [place], [place] 9 04/26/2024 11:20:20 04/26/2024 16:39:44 Spinal stenosis of lumbar region 68711332 M48.062 Lumbosacra l radiculitis 14593296 M54.17 Displaceme nt of lumbar intervertebral disc without myelopathy 30390454 M51.26 Lumbosacra l spondylosis without myelopathy 89659189 M47.817 [id number] Carlita Aguilar MD PAIN OFFICE [address] [place], [place] 9 07/28/2024 10:57:06 07/28/2024 16:19:19 Lumbosacral radiculitis 37175058 M54.17 Displaceme nt of lumbar intervertebral disc without myelopathy 02394366 M51.26 Spinal kj nosis of lumbar region 84043797 M48.062 Lumbosacra l spondylosis without myelopathy 54542104 M47.817 [id number] Carlita Aguilar MD [facility] [address] [place] [address] 08/11/2024 10:59:11 08/11/2024 17:07:59 Spinal stenosis of lumbar region 06372594 M48.062 Lumbosacra l radiculitis 66084765 M54.17 Displaceme nt of lumbar intervertebral disc without myelopathy 70270578 M51.26 Lumbosacra l spondylosis without myelopathy 42296928 M47.817 [id number] Carlita Aguilar MD [facility] [address] [place] [address] 11/14/2024 11:07:01 11/14/2024 15:22:28 Lumbosacral radiculitis 13544363 M54.17 Spinal kj nosis of lumbar region 30936063 M48.062 Displaceme nt of lumbar intervertebral disc without myelopathy 61875974 M51.26 Lumbosacra l spondylosis without myelopathy 97153225 M47.817 [id number] Carlita Aguilar MD [facility] [address] [place] [address] 12/14/2024 11:21:01 12/14/2024 16:02:11 Lumbosacral radiculitis 57468620 M54.17 Spinal kj nosis of lumbar region 58484936 M48.062 Displaceme nt of lumbar intervertebral disc without myelopathy 78356545 M51.26 Lumbosacra l spondylosis without myelopathy 52092575 M47.817 [id number] Carlita Aguilar MD [facility] PA[facility] [address] [facility] [place] [place] [address] 03/20/2025 09:41:23 03/20/2025 10:26:17 Lumbosacral radiculitis 43898017 M54.17 Spinal kj nosis of lumbar region 88506938 M48.062 Displaceme nt of lumbar intervertebral disc without myelopathy 10966045 M51.26 Lumbosacra l spondylosis without myelopathy 29604185 M47.817 [id number] Carlita Aguilar MD PAIN OFFICE [address] [employer] [facility] [place] [address] 03/28/2025 10:15:36 03/28/2025 11:44:42 Spinal stenosis of lumbar region 59182416 M48.062 Lumbosacra l radiculitis 38571278 M54.17 Displaceme nt of lumbar intervertebral disc without myelopathy 78107293 M51.26 Lumbosacra l spondylosis without myelopathy 50370149 M47.817 Health Concerns Section Related Observation LastModified by Organization Detai ls LastModified Time None Recorded Concern Status LastModified by Organization Details LastModified Time None Recorded Advance Directives Directive None Recorded Payers Insurance Date Sequence Insurance Name Policy Number Policy Chatterjee Covered Member ID Chatterjee Member ID Guarantor Name 09/25/2020 1 [facility] [id number] Codie Fernández [id number] Codie Fernández 09/25/2020 1 [facility] Kitty Fernández [id number] Codie Fernández 09/25/2020 1 [facility] (O) Kitty Fernández [id number] Codie Fernández 07/04/2025 1 [facility] (MEDICAID REPLACEMENT - HMO) [facility] Codie Fern[facility]dez [id number] Codie Fernández Notes Date Note Type Note Provider Name and Address Organization Details Recorded Time 08/11/2024 text/html She is here for a lumbar epidural steroid injection under fluoroscopic guidance. Carlita Aguilar MD [address], [place], [address], [facility] 08/11/2024 17:11:07 11/14/2024 text/html She [...] foot surgery on 11/05/2023 and is seeing [facility]. Her gait is altered due to ankle problems and this is impacting her low back pain.She had carpal tunnel surgery in February and May 2023. She had left shoulder replacement. She is doing better with physical therapy for her shoulder. Carlita Aguilar MD [address] , [address], [place], [address], [place] - [facility] 11/29/2024 15:07:06 12/14/2024 text/html She is here for a lumbar epidural steroid injection under fluoroscopic guidance. Carlita Aguilar MD [address] , [address], [place], [address], [place] [facility] 12/14/2024 16:10:36 [...] foot surgery on 11/05/2023 and is seeing [facility]. Her gait is altered due to ankle problems and this is impacting her low back pain.She had carpal tunnel surgery in February and May 2023. She had left shoulder replacement. She is doing better with physical therapy for her shoulder.Her sister in law recently due to stomach cancer and she has to travel to [place] Carlita Aguilar MD [address] , [address], [place], [address], [place] [facility] 03/20/2025 10:35:25 03/28/2025 text/html She is here for a lumbar epidural steroid injection under fluoroscopic guidance. Carlita Aguilar MD [address] [place] [address] , [address], [place], [address], [facility] - Pain Management 03/28/2025 11:47:12 OBGyn Episode No OBEpisode recorded.
--- OUTSIDE RECORDS SUMMARY | 2025-07-16 19:26 | XMS_ITS | Clinical Summary ---
Author Organization [facility] Address [address] [place] [address] Care Team Providers Care Sodder Name Role Phone Gt Prescott MD Primary Care Provider [phone] Allergies Active Allergy Reactions Criticality Noted Date [...] 210 MG/1.91ML SOSY 0 05/12/2023 Active Tiotropium Clark Monohydrate (Spiriva Respimat) 1.25 MCG/ACT AERS Inhale [...] age to complete this topic Care Teams Sodder Relationship Specialty Start Date End Date Gt Prescott MD PCP - General Internal Medicine 05/28/23
--- OUTSIDE RECORDS SUMMARY | 2025-07-16 19:26 | XMS_ITS | Encounter Summary ---
Author Organization [employer] Address [address] [facility] 7t [place] [address] Care Team Providers Care Energy Derivatives Trader Name Role Phone Unavailable Primary Care Provider Unavailabl e Reason for Visit * Reason Onset Date Comments crown fell off 04/06/2023 Encounter Details Date Type Department Care Team (Late st Contact Info) Description 04/06/2023 Telephone [facility] ADULT DENTAL [address] [place], [place] [phone] Alexus Haney DDS [address] [place], [place] [phone] crown fell off Social History Tobacco Use [...]
--- OUTSIDE RECORDS SUMMARY | 2025-07-16 19:26 | XMS_ITS | Encounter Summary ---
Author Organization [employer] Address [address] [facility] 7t [place] [address] Care Team Providers Care Nutrition Services Aide Name Role Phone Unavailable Primary Care Provider Unavailabl e Reason for Visit * Reason Comments Med Refill Encounter Details Date Type Department Care Team (Late st Contact Info) Description 07/22/2023 Refill [facility] ADULT DENTAL [address] [place], [place] [phone] Miguel Ángel Chong DMD [address] [place], [place] [phone] Encounter for dental examination Social History Tobacco [...]
--- OUTSIDE RECORDS SUMMARY | 2025-07-16 19:26 | XMS_ITS | Encounter Summary ---
Author Organization [employer] Address [address] [facility] 7t [place] [address] Care Team Providers Care Finisher Hot Strip Name Role Phone Unavailable Primary Care Provider Unavailabl e Reason for Visit * Reason Comments Med Refill Encounter Details Date Type Department Care Team (Late st Contact Info) Description 08/23/2023 Refill [facility] ADULT DENTAL [address] [place], [place] [phone] Miguel Ángel Chong, AMOS [address] [place], [place] [phone] Encounter for dental examination Social History Tobacco [...]
--- OUTSIDE RECORDS SUMMARY | 2025-07-16 19:26 | XMS_ITS | Encounter Summary ---
Author Organization [employer] Address [address] [facility] [address] [place] [address] Care Team Providers Care Flume Worker Name Role Phone Unavailable Primary Care [...]
--- OUTSIDE RECORDS SUMMARY | 2025-07-16 19:26 | XMS_ITS | Encounter Summary ---
Author Organization [employer] [facility] Address [address] [facility] 7t [place] [address] Care Team Providers Care Compliance Project Manager Name Role Phone Unavailable Primary Care Provider Unavailabl e Reason for Visit * Reason Comments Med Refill Encounter Details Date Type Department Care Team (Late st Contact Info) Description 02/27/2025 Refill [facility] ADULT D[facility] [address] [place], [place] [phone] Miguel Ángel Chong DMD [address] [place], [place] [phone] Encounter for dental examination Social History Tobacco [...]
--- OUTSIDE RECORDS SUMMARY | 2025-07-16 19:26 | XMS_ITS | Encounter Summary ---
Author Organization [employer] Address [address] [facility] 7t [place] [address] Care Team Providers Care Database Operator Name Role Phone Unavailable Primary Care Provider Unavailabl e Reason for Visit * Reason Comments Med Change Request Encounter Details Date Type Department Care Team (Late st Contact Info) Description 07/26/2024 Refill [facility] ADULT DENTAL [address] [place], [place] [phone] Miguel Ángel Chong DMD [address] [place], [place] [phone] Encounter for dental examination Social History Tobacco [...]
--- OUTSIDE RECORDS SUMMARY | 2025-07-16 19:26 | XMS_ITS | Encounter Summary ---
Author Organization [employer] Address [address] [facility] [address]t [place] [address] Care Team Providers Care Home Aid Name Role Phone Unavailable Primary Care Provider Unavailabl e Encounter Details Date Type Department Care Team (Late st Contact Info) Description 04/28/2023 Abstract [facility] ADULT DENTAL [address] [place], [place] [phone] Alexus Haney DDS [address] [place], [place] [phone] Social History Tobacco Use Types Packs/Day Years [...]
--- OUTSIDE RECORDS SUMMARY | 2025-07-16 19:26 | XMS_ITS | Encounter Summary ---
Author Organization [employer] Address [address] [facility] 7[address] [place] [address] Care Team Providers Care Utility Technician Name Role Phone Unavailable Primary Care Provider Unavailabl e Encounter Details Date Type Department Care Team (Late st Contact Info) Description 08/20/2022 Abstract [facility] ADULT DENTAL [address] [place], [place] [phone] Alexus Haney DDS [address] [place], [place] [phone] Social History Tobacco Use Types Packs/Day Years [...]
--- OUTSIDE RECORDS SUMMARY | 2025-07-16 19:26 | XMS_ITS | Encounter Summary ---
Author Organization [employer] Address [address] [facility] 7t [place] [address] Care Team Providers Care Marine Fire Fighter Name Role Phone Unavailable Primary Care Provider Unavailabl e Reason for Visit * Reason Comments Med Refill Encounter Details Date Type Department Care Team (Late st Contact Info) Description 06/24/2023 Refill [facility] ADULT DENTAL [address] [place], [place] [phone] Alexus Haney, DDS [address] [place], [place] [phone] Encounter for dental examination Social History Tobacco [...]
--- OUTSIDE RECORDS SUMMARY | 2025-07-16 19:26 | XMS_ITS | Encounter Summary ---
Author Organization [employer] Address [address] [facility] 7t [place] [address] Care Team Providers Care Straight Edger Name Role Phone Unavailable Primary Care Provider Unavailabl e Reason for Visit * Reason Comments Med Refill Encounter Details Date Type Department Care Team (Late st Contact Info) Description 09/24/2023 Refill [facility] ADULT DENTAL [address] [place], [place] [phone] Alexus Haney, DDS [address] [place], [place] [phone] Encounter for dental examination Social History Tobacco [...]
--- OUTSIDE RECORDS SUMMARY | 2025-07-16 19:26 | XMS_ITS | Encounter Summary ---
Author Organization [employer] [facility] Address [address] [facility] [address]t [place] [address] Care Team Providers Care Push Bench Operator Helper Name Role Phone Unavailable Primary Care Provider [...]
--- OUTSIDE RECORDS SUMMARY | 2025-07-16 19:26 | XMS_ITS | Encounter Summary ---
Author Organization [employer] Address [address] [facility] [address] [place] [address] Care Team Providers Care Pipe Coremaker Name Role Phone Unavailable Primary Care Provider Unavailabl e Reason for Visit * Reason Onset Date Comments Med Refill 03/11/2023 Encounter Details Date Type Department Care Team (Late st Contact Info) Description 03/11/2023 Telephone [facility] ADULT DENTAL [address] [place], [place] [phone] Alexus Haney, DDS [address] [place], [place] [phone] Med Refill Social History Tobacco Use Types [...]
--- OUTSIDE RECORDS SUMMARY | 2025-07-16 19:26 | XMS_ITS | Encounter Summary ---
Author Organization [employer] Address [address] [facility] [address] [place] [address] Care Team Providers Care Product Lister Name Role Phone Unavailable Primary Care Provider Unavailabl e Reason for Visit * Reason Onset Date Comments appt 01/19/2024 Encounter Details Date Type Department Care Team (Late st Contact Info) Description 01/19/[address] [facility] ADULT DENTAL [address] [place], [place] [phone] Alexus Haney, DDS [address] [place], [place] [phone] appt Social History Tobacco Use Types Packs/Day [...]
--- OUTSIDE RECORDS SUMMARY | 2025-07-16 19:26 | XMS_ITS | Encounter Summary ---
Author Organization [employer] Address [address] [facility] [address]t [place] [address] Care Team Providers Care Sustainable Landscape Architect Name Role Phone Unavailable Primary Care Provider Unavailabl e Reason for Visit * Reason Comments Med Refill Encounter Details Date Type Department Care Team (Late st Contact Info) Description 09/30/2022 Refill [facility] ADULT DENTAL [address] [place] [address] Alexus Haney DDS [address] [place], [place] [phone] Pain (Primary Dx) Social History Tobacco Use [...]
--- OUTSIDE RECORDS SUMMARY | 2025-07-16 19:26 | XMS_ITS | Encounter Summary ---
Author Organization [employer] Address [address] [facility] [address]t [place] [address] Care Team Providers Care Taxonomy Teacher Name Role Phone Unavailable Primary Care Provider Unavailabl e Encounter Details Date Type Department Care Team (Late st Contact Info) Description 12/23/2023 Orders Only [facility] ADULT DENTAL [address] [place], [place] [phone] Alexus Haney, DDS [address] [place], [place] [phone] Social History Tobacco Use Types Packs/Day Years [...]
--- OUTSIDE RECORDS SUMMARY | 2025-07-16 19:26 | XMS_ITS | Encounter Summary ---
Author Organization [facility] Address [address] [facility] [address] [place] [address] Care Team Providers Care Spindle Frame Carver Name Role Phone Unavailable Primary Care Provider Unavailabl e Reason for Visit * Reason Comments Med Refill Encounter Details Date Type Department Care Team (Late st Contact Info) Description 12/24/2023 Refill [facility] ADULT DENTAL [address] [place], [place] [phone] Miguel Ángel Chong DMD [address] [place], [place] [phone] Encounter for dental examination Social History Tobacco [...]
--- OUTSIDE RECORDS SUMMARY | 2025-07-16 19:26 | XMS_ITS | Encounter Summary ---
Author Organization [employer] Address [address] [facility] [address]t [place] [address] Care Team Providers Care Lifeline Representatives Name Role Phone Unavailable Primary Care Provider Unavailabl e Reason for Visit * Reason Comments Med Refill Encounter Details Date Type Department Care Team (Late st Contact Info) Description 10/21/2023 Refill [facility] ADULT DENTAL [address] [place], [place] [phone] Miguel Ángel Chong DMD [address] [place], [place] [phone] Encounter for dental examination Social History Tobacco [...]
--- OUTSIDE RECORDS SUMMARY | 2025-07-16 19:26 | XMS_ITS | Encounter Summary ---
Author Organization [employer] [facility] Address [address] [facility] 7t [place] [address] Care Team Providers Care Cigar Head Puncher Name Role Phone Unavailable Primary Care Provider Unavailabl e Reason for Visit * Reason Comments Med Refill Encounter Details Date Type Department Care Team (Late st Contact Info) Description 01/24/2025 Refill [facility] ADULT DENTAL [address] [place], [place] [phone] Miguel Ángel Chong DMD [address] [place], [place] [phone] Encounter for dental examination Social History Tobacco [...]
--- OUTSIDE RECORDS SUMMARY | 2025-07-16 19:26 | XMS_ITS | Encounter Summary ---
Author Organization [employer] Address [address] [facility] 7t [place] [address] Care Team Providers Care Tour Guide Name Role Phone Unavailable Primary Care Provider Unavailabl e Encounter Details Date Type Department Care Team (Late st Contact Info) Description 04/28/2023 Abstract [facility] ADULT DENTAL [address] [place], [place] [phone] Alexus Haney DDS [address] [place], [place] [phone] Social History Tobacco Use Types Packs/Day Years [...]
--- OUTSIDE RECORDS SUMMARY | 2025-07-16 19:26 | XMS_ITS | Encounter Summary ---
Author Organization [employer] Address [address] [facility] 7[address] [place] [address] Care Team Providers Care Casino Surveillance Officer Name Role Phone Unavailable Primary Care [...]
--- OUTSIDE RECORDS SUMMARY | 2025-07-16 19:26 | XMS_ITS | Encounter Summary ---
Author Organization [facility] [facility] Address [address] [facility] 7t [place] [address] Care Team Providers Care Waste Cotton Cleaner Name Role Phone Unavailable Primary Care Provider Unavailabl e Reason for Visit * Reason Comments Med Refill Encounter Details Date Type Department Care Team (Late st Contact Info) Description 06/06/2024 Refill [facility] ADULT DENTAL [address] [place], [place] [phone] Miguel Ángel Chong DMD [address] [place], [place] [phone] Encounter for dental examination Social History Tobacco [...]
--- OUTSIDE RECORDS SUMMARY | 2025-07-16 19:26 | XMS_ITS | Encounter Summary ---
Author Organization [facility] Address [address] [place] [address] Care Team Providers Care Metal Sander And Finisher Name Role Phone Gt Prescott MD Primary Care Provider [phone] Encounter Details Date Type Department Care Team (Late st Contact Info) Description 06/16/2025 Billing Patient Not Present Adult Medicine [address] [phone] Gt Prescott MD [address] [place] [address] Social History Tobacco Use Types Packs/Day Years [...] care for your loved ones. For example, special needs child caregiver or elderly care for an older adult? [...] AM EST Office Visit Bariatric Surgery - [address] [place] [phone] Mitch Mckinney MD [address] [place] [phone] 08/08/2025 10:30 AM EST Office Visit [address] [phone] Lisbet Gonzalez NP [address] [place] [address] 01/05/2026 9:00 AM EDT Office Visit [address] [phone] Gt Prescott MD [address] [place] [address] documented as of this encounter Goals Goal [...] documented as of this encounter Care Teams Metal Sander And Finisher Relationship Specialty Start Date End Date Gt Prescott MD [address] [place] [address] PCP - General Internal Medicine 02/21/20 documented as of this encounter
--- OUTSIDE RECORDS SUMMARY | 2025-07-16 19:26 | XMS_ITS | Clinical Summary ---
Author Organization [facility] [place] [address] Phone Care Team Providers Care Medical Assistant Internal Medicine Name Role Phone Gt Prescott MD Primary Care Provider [phone] Allergies Active Allergy Reactions Criticality Noted Date [...] 2 (two) times a day. 023 Active EPINEPHrine (EpiPen 2-Alexis) 0.3 mg/0.3 mL injection Inject 0.3 mL (0.3 mg total) as directed if needed for anaphylaxis. 021 Active FREESTYLE LANCETS MISC 1 Lancet by extracorporeal route 1 (one) time each day. 023 Active ipratropium (ATROVENT) 0.02 % nebulizer solution Take 2.5 mL (0.5 mg total) by nebulization 4 (four) times a day if needed. wheeze 023 Active ipratropium-alb uteroL (Combivent Respimat) 20-100 mcg/actuation inhaler Inhale 1 puff by mouth every 6 (six) hours if needed for wheezing. ) for up to 30 days 023 Active tiotropium (Spiriva Respimat) 1.25 mcg/actuation inhalation spray Inhale 2 puffs by mouth 1 (one) time each day. 024 Active tezepelumab-ekk o (Tezspire) Inject 1.91 mL (210 mg total) under the skin. 023 Active montelukast (SINGULAIR) 10 mg tabletIndicatio ns:Severe persistent asthma, unspecified whether complicated (CMS/[facility] V28) TAKE 1 TABLET BY MOUTH AT BEDTIME FOR 360 DAYS. 90 tablet 3 024 Active Vitamin D3 25 mcg (1,000 unit) capsule TAKE 1 CAPSULE BY MOUTH EVERY DAY 90 capsule 1 025 Active buPROPion XL (Wellbutrin XL) 300 mg 24 hr tabletIndicatio ns:Class 1 obesity due to excess calories with body mass index (BMI) of 30.0 to 30.9 in adult, unspecified whether serious comorbidity present Take 1 tablet (300 mg total) by mouth 1 (one) time each day. Do not crush, chew, or split. 30 each 2 025 Active loratadine (CLARITIN) 10 mg tablet TAKE 1 TABLET BY MOUTH EVERY DAY 90 tablet 1 025 Active blood sugar diagnostic (FreeStyle Lite Strips) test strip USE TO CHECK BLOOD SUGAR ONCE DAILY 200 strip 1 025 Active hydrOXYzine HCL (ATARAX) 25 mg tablet TAKE 1 TABLET BY MOUTH EVERY 8 HOURS NEEDED FOR ITCHING 270 tablet 025 Active calcium citrate (CALCITRATE) 950 mg (200 mg elemental calcium) tabletIndicatio ns:Obstructive sleep apnea (adult) (pediatric),Sev ere persistent asthma with (acute) exacerbation (CMS/HCC V28) TAKE 1 TABLET BY MOUTH EVERY DAY 90 tablet 1 025 Active omeprazole (PriLOSEC) [address] capsule TAKE 1 CAPSULE BY MOUTH EVERY DAY 90 capsule 1 025 Active cyclobenzaprine (FLEXERIL) 5 mg tablet TAKE 1 TABLET BY MOUTH 3 TIMES A DAY IF NEEDED FOR MUSCLE SPASMS. 30 tablet Active folic acid (FOLVITE) 1 mg tablet TAKE 1 TABLET BY MOUTH EVERY DAY 90 tablet 1 Active Advair HFA 230-21 mcg/actuation inhalerIndicati ons:Moderate persistent asthma, uncomplicated,G kevin-esophagea l reflux disease with esophagitis, without bleeding TAKE 1 PUFF BY MOUTH TWICE A DAY 12 each 5 Active atorvastatin (LIPITOR) 80 mg tablet Take 1 tablet (80 mg total) by mouth daily. 2025 Active losartan (COZAAR) 50 mg tablet Take 1 tablet (50 mg total) by mouth daily. 2025 Active naloxone (NARCAN) 4 mg/0.1 mL nasal spray [place] contents (4mg) into one nostril once. May repeat every 2 to 3 minutes in alternating nostrils. Call 911 immediately after use. Active metoprolol succinate (TOPROL-XL) 25 mg 24 hr tabletIndicatio ns:Non-ST elevation (NSTEMI) myocardial infarction (CMS/HCC V24, CMS/HCC V28) TAKE 1 TABLET (25 MG TOTAL) BY MOUTH DAILY. 90 tablet 1 Active ticagrelor (BRILINTA) 90 mg tablet Take 1 tablet (90 mg total) by mouth 2 (two) times a day. 60 tablet 1 Active aspirin 81 mg EC tablet Take 1 tablet (81 mg total) by mouth 1 (one) time each day. 90 tablet 1 025 2025 Active ibuprofen (ADVIL,MOTRIN) 800 mg tablet TAKE 1 TABLET (800 MG TOTAL) BY MOUTH EVERY 8 (EIGHT) HOURS IF NEEDED FOR MILD PAIN. FOR 30 DAYS 90 tablet 1 025 2024 Discontinued metoprolol succinate (TOPROL-XL) 25 mg 24 hr tablet Take 1 tablet (25 mg total) by mouth daily. 2024 Discontinued ticagrelor (BRILINTA) 90 mg tablet Take 1 tablet (90 mg total) by mouth 2 (two) times a day. 11/13/ 2025 Discontinued(R eorder) Active Problems Problem Noted Date [...] 05/05/2018 Seasonal allergies 04/28/2018 Severe persistent asthma ([facility] V28) 8 Spinal stenosis of lumbar region 11/02/2017 Obstructive sleep apnea of adult 03/07/2017 Overview (05/26/2024): UNTREATED (August 2022) [facility] Home Polysomnogram: Date 02/27/2017; AHI 7, Unclassified apneas 1; Obstructive apneas 19; Central apneas 5; Mixed apneas 0; hypopneas 19; average oxygen saturation 96% (lowest 90% without saturations <88% for 5% or more of study). Treatment study ordered due to intolerance in the past. If insurance declines, will trial CPAP autoset instead. [facility] Polysomnogram treatment study. Date 03/22/2017. SE 87 % SM 91 %; spent 27 % of the study in REM. At the optimal pressure of 9; RDI 2 (AHI 2), Central apneas 2; Obstructive apneas 0; Mixed apneas 0; hypopneas 0; RERAs 0; and, average oxygen saturation was 92%. For the entire study, PLMs ~36. [facility] [place] Polysomnogram: Date 08/11/2019; Wt 200#; BMI 38; [...] Encounters Date Type Department Care Team Description 06/29/2025 Results Follow-Up [address] [phone] Gt Prescott MD 06/22/2025 Results Follow-Up [address] [phone] Gt Prescott MD 06/21/2025 11:40 AM EDT Lab Draw [address] Type 2 diabetes mellitus with hyperglycemia, unspecified whether entry level marketing representative insulin use ([facility] V24, [facility] V28) 06/21/2025 11:16 AM EDT - 06/21/2025 11:59 PM EDT Hospital Encounter XRAY [address] [phone] Spinal stenosis of lumbar region, unspecified whether neurogenic claudication present Discharge Disposition: Home or Self Care 06/21/2025 10:30 AM EDT Office Visit [address] [phone] Gt Prescott MD NSTEMI (non-ST elevated myocardial infarction) ([facility] V24, [facility] V28) (Primary Dx); Type 2 diabetes mellitus with hyperglycemia, unspecified whether entry level marketing representative insulin use ([facility] V24, [facility] V28); Spinal stenosis of lumbar region, unspecified whether neurogenic claudication present; Fall, sequela; Cerebrovascular accident (CVA), unspecified mechanism ([facility] V24, [facility] V28); Expressive aphasia 06/16/2025 Billing Patient Not Present [address] [phone] Gt Prescott MD 06/06/2025 Telephone Adult [address] [phone] Gt Prescott MD 06/01/2025 Telephone Adult Medicine [address] [phone] Susan Bangura MA 04/20/2025 9:30 AM EDT Treatment [facility] [address] [phone] 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 Home Polysomnogram: Date 02/27/2017; AHI [...] obesity with BMI of 4 0.0-44.9, adult ([facility] V24, [facility] V28) 11/03/2014 DX:Morbid obesity wit h BMI of 40.0-44.9, adult ([facility]) Severe persistent asthma ([facility] V28) 03/08/2018 DX:Severe persistent asthma Allergic conjunctivitis of both eyes 04/28/2018 DX:Allergic conjunctivitis of both eyes Chronic rhinitis 04/28/2018 DX:Chronic rhin itis Total knee replacement status, right 02/01/2020 DX:Total knee replacement status, right; COMMENT: 02/10 COPD (chronic obstructive pu lmonary disease) ([facility] V24, [facility] V28) DX:COPD (chronic o bstructive pulmonary disease) ([facility]) Pulmonary embolism ([facility] V24, [facility] V28) 07/15/2022 DX:Pulmonary embolism (HCC) Family History [...] Not Answered Alcohol Use Standard Drinks/Week Comments No 0 [...] your loved ones. For example, early childhood education coordinator or elderly care for an older [...] Sign Reading Time Taken Comments Blood Pressure 112/64 06/21/2025 10:30 AM EDT Pulse 68 06/21/2025 10:30 AM EDT Temperature 36.6 C (97.8 F) 06/21/2025 10:30 AM EDT Respiratory Rate 14 06/21/2025 10:30 AM EDT Oxygen Saturation 98% 06/21/2025 10:30 AM EDT Inhaled Oxygen Concentration - - Weight 75.3 kg (166 lb) 06/21/2025 10:30 AM EDT Height 154.9 cm (5' 1 ) 06/21/2025 10:30 AM EDT Body Mass Index 31.37 06/21/2025 10:30 AM EDT Plan of Treatment Upcoming Encounters Date Type Department Care Team (Late st Contact Info) Description 07/25/2025 8:15 AM EST Office Visit Bariatric Surgery - [address] [phone] Mitch Mckinney MD [address] [place] [phone] 08/08/2025 10:30 AM EST Office Visit Adult Medicine [address] [phone] Libset Gonzalez NP [address] [place] [address] 01/05/2026 9:00 AM EDT Office Visit Adult Medicine [address] [phone] Gt Prescott MD [address] [place] [address] Health Maintenance Due Date Last Done Comments Diabetes: Annual Foot Exam 1978 Diabetes: Annual Retina Eye Exam 1978 Hepatitis B Vaccines (1 of 3 - 19+ 3-dose series) 1987 Pneumococcal Vaccine: 50+ Years (2 of 2 - PCV) 10/03/2016 10/03/2015 RSV Immunization Adult Patients (1 - Risk 50-74 years 1-dose series) 2018 Breast Cancer Screening 07/20/2020 07/20/2018, 05/07 HIV Screening 08/02/2022 COVID-19 Vaccine ( - season) 2025 07/09/2022, 10/28/2021, 11/13/2020, Additional history exists Influenza Vaccine (#1) 2025 , 07/10/2022, 05/24/2021, Additional history exists Diabetes: Annual Urine Albumin-Creatinine Ratio (uACR) 06/07/2025 12/24/2022 Diabetes: Blood Sugar Control Test (HGBA1C) 12/20/2025 06/21/2025, 11/11/2024, 05/27/2024, Additional history exists Cervical Cancer Screening: HPV 12/24/2025 12/24/2020 Social Influencers of Health Screening 01/03/2026 01/03/2025 Diabetes: Annual GFR (Glomerular Filtration Rate) 06/21/2026 06/21/2025, 05/25/2025, 05/24/2025, Additional history exists Hypertension/CHF/CAD Annual BMP Blood Test 06/21/2026 06/21/2025, 05/25/2025, 05/24/2025, Additional history exists Cholesterol Screening (Lipid Panel) 12/31/2028 01/01/2024, 01/01/2024 [...] Date/Time Associated Diagnosis Comments HEMOGLOBIN A1C Routine 06/21/2025 11:42 AM EDT Type 2 diabetes mellitus with hyperglycemia, unspecified whether fpc insulin use ([facility] V24, [facility] V28) BASIC METABOLIC PANEL Routine 06/21/2025 11:42 AM EDT Type 2 diabetes mellitus with hyperglycemia, unspecified whether fpc insulin use ([facility] V24, [facility] V28) XR LUMBAR SPINE 4+ VIEWS Routine 06/21/2025 11:30 AM EDT Spinal stenosis of lumbar region, unspecified whether neurogenic claudication present HM DEPRESSION SCREENING Routine 04/26/2024 LIPID PANEL Routine 01/01/2024 HM URINE ALBUMIN CREATININE RATIO Routine 12/24/2022 HM HEPATITIS C SCREENING Routine 05/24/2021 HM HPV Routine 12/24/2020 HM COLONOSCOPY Routine 07/28/2019 SCR MAMMO BI INCL CAD Routine 07/20/2018 8:05 AM EST Encounter for screening mammogram for malignant neoplasm of breast from Last 3 Months or Most Recently Relevant to Health Maintenance Results * Hemoglobin A1c (06/21/2025 11:42 AM EDT) Hemoglobin A1C 5.9 <6.5 % LAB CHEMISTRY METHOD 06/21/2025 2:03 PM EDT [facility] Mean Bld Glu Estim. 123 mg/dL LAB CHEMISTRY METHOD 06/21/2025 2:03 PM EDT [facility] Blood Venous blood specimen / Unknown Venipuncture / Unknown 06/21/2025 11:42 AM EDT 06/21/2025 11:42 AM EDT us Gt Prescott MD LAB BLOOD ORDERABLES Final Resu lt [facility] [address] [place] [address], [place] [phone] * (ABNORMAL) Basic metabolic panel (06/21/2025 11:42 AM EDT) Sodium 141 133 - 145 mmol/L LAB CHEMISTRY METHOD 06/21/2025 5:18 PM [facility] Potassium 4.7 3.5 - 5.5 mmol/L LAB CHEMISTRY METHOD 06/21/2025 5:18 PM [facility] Chloride 109 96 - 110 mmol/L LAB CHEMISTRY METHOD 06/21/2025 5:18 PM [facility] CO2 26 21 - 32 mmol/L LAB CHEMISTRY METHOD 06/21/2025 5:18 PM [facility] Anion Gap 6 3 - 11 LAB CHEMISTRY METHOD 06/21/2025 5:18 PM [facility] Glucose 93 70 - 100 mg/dL LAB CHEMISTRY METHOD 06/21/2025 5:18 PM [facility] BUN 30(H) 5 - 25 mg/dL LAB CHEMISTRY METHOD 06/21/2025 5:18 PM [facility] Creatinine 0.98 0.50 - 1.10 mg/dL LAB CHEMISTRY METHOD 06/21/2025 5:18 PM [facility] eGFR 67 >=60 mL/min/1. 73m2 LAB CHEMISTRY METHOD 06/21/2025 5:18 PM [facility] Comment:Calculation based on the Chronic Kidney Disease Epidemiology Collaboration (CKD-EPI) equation refit without adjustment for race. BUN/Creatinine Ratio 30.6 LAB CHEMISTRY METHOD 06/21/2025 5:18 PM [facility] Calcium 9.6 8.5 - 10.5 mg/dL LAB CHEMISTRY METHOD 06/21/2025 5:18 PM [facility] Blood Venous blood specimen / Unknown Venipuncture / Unknown 06/21/2025 11:42 AM EDT 06/21/2025 11:42 AM EDT us Gt Prescott MD LAB BLOOD ORDERABLES Final Resu lt [facility] [address] [place] [address], * XR Lumbar Spine 4+ Views (06/21/2025 11:30 AM EDT) Anatomical Region Laterality Modality Spine, L-spine Radiographic Fanta ging 06/21/2025 4:15 PM EDT Impressions 06/21/2025 4:18 PM EDT Severe degenerative changes of the lumbar spine. -------- FINAL REPORT -------- Dictated By: Tina Ribeiro Dictated Date: 06/21/2025 16:15 ET Assigned Physician: Tina Ribeiro Reviewed and Electronically Signed By: Tina Ribeiro Signed Date: 06/21/2025 16:18 ET Workstation ID: [id number] Transcribed By: Self Edit Transcribed Date: 06/21/2025 16:15 ET Narrative 06/21/2025 4:18 PM EDT HISTORY: known lumbar spinal stenosis now with left leg pain worsening ? sciatica TECHNIQUE: 4 views of the lumbar spine COMPARISON: Lumbar spine radiograph from 07/17/2015 FINDINGS: Vertebral body height is maintained. Decreased disc height at L2-L3, L3-L4, L4- L5 and L5-S1 with endplate sclerosis. There is grade 1 anterolisthesis of L5 on S1. Small anterior osteophytes are present at multiple levels. There is severe neuroforaminal stenosis at multiple levels. The sacroiliac joints are patent. Large amount stool throughout the colon. Procedure Note Tina Ribeiro MD - 06/21/2025 HISTORY: known lumbar spinal stenosis now with left leg pain worsening ?sciatica TECHNIQUE: 4 views of the lumbar spine COMPARISON: Lumbar spine radiograph from 07/17/2015 FINDINGS: Vertebral body height is maintained. Decreased disc height at L2-L3,L3-L4, L4-L5 and L5-S1 with endplate sclerosis. There is grade 1anterolisthesis of L5 on S1. Small anterior osteophytes are present atmultiple levels. There is severe neuroforaminal stenosis at multiplelevels. The sacroiliac joints are patent. Large amount stool throughoutthe colon. IMPRESSION: Severe degenerative changes of the lumbar spine. -------- FINAL REPORT -------- Dictated By: Tina Ribeiro Dictated Date: 06/21/2025 16:15 ET Assigned Physician: Tina Ribeiro Reviewed and Electronically Signed By: Tina Ribeiro Signed Date: 06/21/2025 16:18 ET Workstation ID: [id number] Transcribed By: Self Edit Transcribed Date: 06/21/2025 16:15 ET Result [facility] Gt Prescott MD IMG XR PROCEDURES Final Result * Depression Screening (04/26/2024) [facility] Depression Screening abstracted Result [facility] [employer]CE Final Result * Lipid panel (01/01/2024) [facility] [address] LDL/HDL Ratio 2 0 - 4 Triglycerides 55 0 - 150 mg/dL Cholesterol 194 0 - 200 mg/dL HDL 90 >=40 mg/dL LDL Cholesterol 93 0 - 100 mg/dL Blood Venous blood specimen / Unknown Result [facility] LAB BLOOD ORDERABLES June l Result * Urine Albumin Creatinine Ratio (12/24/2022) [facility] Urine Albumin Creatinine Ratio abstracted Result [facility] [employer] Final Result * Hepatitis C Screening (05/24/2021) [facility] Hepatitis C Screening abstracted Result [facility] [employer] Final Result * Cervical Cancer Screening: HPV (12/24/2020) [facility] Cervical Cancer Screening: HPV negative, abstracted us Historical Provider HEALTH MAINTENANCE Final Result * Colonoscopy (07/28/2019) Colonoscopy no interpretation , abstracted Anatomical Region Laterality Modality Other Result [facility] Historical Provider [facility] Final Result * SCR MAMMO BI INCL [...] % Breast cancer risk category Low (<15%) Result [facility] David Almaraz MD IMG XR PROCEDURES Final Result from Last 3 Months or Most Recently Relevant to Health [place] [address] [place] [id number] [facility] Advance Directives Documents on File Type Date Recorded 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
[2025-07-16 19:42] VITALS: BP 121/64; PULSE 52; RESP 14; TEMP 36.4; O2SAT 100
== END 2025-07-16 19:42 | disposition home or self-care (01) ==
PROVIDERS: Emergency Provider Emergency Medicine; PCP Internal Medicine
DX: M54.16 Radiculopathy, lumbar region (principal)
CPT/HCPCS: 99283; 99284